=== PATIENT | female | born 1945 | race Two or more races ===

== ENCOUNTER 2020-12-16 07:18 | Outpatient (REF) | payer MEDICARE, SELFPAY | END 2020-12-16 07:19 | disposition home or self-care (01) | LOC: HO.LAB 07:18 | PROVIDERS: PCP Internal Medicine; Visit Provider Internal Medicine | DX: Z20.822 Contact with and (suspected) exposure to COVID-19 (principal) | CPT/HCPCS: 36415; C9803; U0003 ==

== ENCOUNTER → 2021-01-13 10:04 | Outpatient (BNVA) | payer MEDICARE, SELFPAY | PROVIDERS: PCP Internal Medicine; Visit Provider Nurse Practitioner | DX: Z76.89 Persons encountering health services in other specified circumstances (principal) | CPT/HCPCS: Q3014 ==

== ENCOUNTER 2021-05-30 09:26 | Outpatient (REF) | payer MEDICARE, SELFPAY ==
--- NOTE | ~2021-05-30 | MM_ITS ---
EXAMINATION: BONE DENSITOMETRY CLINICAL INDICATION: Osteoporosis. COMPARISON: None (current study represents initial baseline exam). TECHNIQUE: Using a Knowable DXA System (software version: 13.1) manufactured by [email or web address], dual-energy x-ray absorptiometry was performed of the lumbar spine and left hip. The images are of good technical quality. Summary results are attached. FINDINGS: AP SPINE L1-L4: BMD 1.366 g/cm2, Z-score 3.0, T-score 1.6, normal. LEFT FEMUR, NECK: BMD 0.922 g/cm2, Z-score 1.0, T-score -0.8, normal. LEFT FEMUR, TOTAL: BMD 1.085 g/cm2, Z-score 2.2, T-score 0.6, normal. IDENTIFIED RISK FACTORS: Early menopause, secondary osteoporosis, hysterectomy, bilateral oophorectomy. HISTORY OF FRACTURE: None listed. MEDICATIONS: Calcium supplements or multivitamin, vitamin D. MM/XR DEXA axial skeleton IMPRESSION: 1. DIAGNOSIS: Normal bone density based on the lowest T-score value of -0.8 in the femoral neck applying World Health Organization criteria. 2. 10-YEAR FRACTURE RISK PREDICTION, FRAX: Major osteoporotic fracture (clinical spine, forearm, hip or shoulder) 5.2%. Hip fracture 0.7%. 3. Treatment Recommendations: NOF guidelines recommend consideration for treatment in postmenopausal women and men age 50 and older presenting with the following: -A hip or vertebral (clinical or morphometric) fracture. -T-score less than or equal to -2.5 at the femoral neck or spine after appropriate evaluation to exclude secondary causes. -Low bone mass at the hip or spine and a 10-year fracture probability by FRAX of greater than or equal to 3% for hip fracture or greater than or equal to 20% for major osteoporotic fracture based on the [place] adapted WHO algorithm. 4. Other Recommendations: All treatment decisions require clinical judgment and consideration of individual patient factors, including patient preferences, comorbidities, previous drug use, risk factors not captured in the FRAX model (e.g. frailty, falls, vitamin D deficiency, increased bone turnover, interval significant decline in bone density) and possible under or overestimation of fracture risk by FRAX. FUTURE SCAN RECOMMENDATION: People with diagnosed cases of osteoporosis or at high risk for fracture should have regular bone mineral density tests. For patients eligible for Medicare, routine testing is allowed once every 2 years. The testing frequency can be increased to one year for patients who have rapidly progressing disease, those who are receiving or discontinuing medical therapy to restore bone mass, or have additional risk factors.
== END 2021-05-30 09:27 | disposition home or self-care (01) ==
LOC: HO.MAMMO 09:26
PROVIDERS: PCP Internal Medicine; Visit Provider Internal Medicine
DX: Z13.820 Encounter for screening for osteoporosis (principal); Z78.0 Asymptomatic menopausal state; Z79.899 Other long term (current) drug therapy; Z98.890 Other specified postprocedural states; Z90.722 Acquired absence of ovaries, bilateral
CPT/HCPCS: 77080

== ENCOUNTER 2021-08-29 07:54 | Outpatient (REF) | payer MEDICARE, SELFPAY ==
--- NOTE | ~2021-08-29 | XR_ITS ---
EXAMINATION: BILATERAL KNEE STANDING AND RIGHT KNEE 2 VIEWS. CLINICAL INFORMATION: Pain right knee: COMPARISON: None TECHNIQUE: AP bilateral knee standing and right knee 2 views. FINDINGS: AP bilateral knee: There is loss of medial and lateral compartment joint space both knees with moderate periarticular spurring lateral compartment both knees. No bony erosive changes seen. There are no loose bodies. No joint effusion. Right knee: There is loss of patellofemoral compartment joint space with right lateral patellar enthesophyte. Mild suprapatellar joint effusion is seen. No loose bodies noted. There is no acute fracture or dislocation. XR/XR knee RT 2V IMPRESSION: Moderate degenerative changes and lateral compartment both knees with moderate periarticular osteophytes. Mild loss of patellofemoral compartment right knee with periarticular spurring right knee. No acute fracture or dislocation seen.
--- NOTE | ~2021-08-29 | XR_ITS ---
EXAMINATION: BILATERAL KNEE STANDING AND RIGHT KNEE 2 VIEWS. CLINICAL INFORMATION: Pain right knee: COMPARISON: None TECHNIQUE: AP bilateral knee standing and right knee 2 views. FINDINGS: AP bilateral knee: There is loss of medial and lateral compartment joint space both knees with moderate periarticular spurring lateral compartment both knees. No bony erosive changes seen. There are no loose bodies. No joint effusion. Right knee: There is loss of patellofemoral compartment joint space with right lateral patellar enthesophyte. Mild suprapatellar joint effusion is seen. No loose bodies noted. There is no acute fracture or dislocation. XR/XR knee standing BI IMPRESSION: Moderate degenerative changes and lateral compartment both knees with moderate periarticular osteophytes. Mild loss of patellofemoral compartment right knee with periarticular spurring right knee. No acute fracture or dislocation seen.
== END 2021-08-29 07:55 | disposition home or self-care (01) ==
LOC: HO.HOSX 07:54
PROVIDERS: Visit Provider Physician Assistant
DX: M17.11 Unilateral primary osteoarthritis, right knee (principal); R13.10 Dysphagia, unspecified; K21.9 Gastro-esophageal reflux disease without esophagitis
CPT/HCPCS: 73560; 73565; 99212

== ENCOUNTER → 2021-09-18 10:45 | Outpatient (BNVA) | payer MEDICARE, SELFPAY | PROVIDERS: PCP Internal Medicine; Visit Provider Orthopaedic Surgery | DX: Z01.812 Encounter for preprocedural laboratory examination (principal); M17.11 Unilateral primary osteoarthritis, right knee; M21.061 Valgus deformity, not elsewhere classified, right knee; Z88.0 Allergy status to penicillin | CPT/HCPCS: 99212 ==

== ENCOUNTER → 2021-12-11 11:10 | Outpatient (BNVA) | payer MEDICARE, SELFPAY | PROVIDERS: PCP Internal Medicine; Visit Provider Orthopaedic Surgery ==

== ENCOUNTER → 2021-12-25 09:04 | Outpatient (BNVA) | payer MEDICARE, SELFPAY | PROVIDERS: PCP Internal Medicine; Visit Provider Physician Assistant | DX: Z01.818 Encounter for other preprocedural examination (principal); M17.11 Unilateral primary osteoarthritis, right knee | CPT/HCPCS: 99212 ==

== ENCOUNTER 2021-12-27 10:00 | Outpatient (RCR) | payer MEDICARE, SELFPAY | END 2021-12-27 10:52 | disposition home or self-care (01) | LOC: HO.PTCHIC 10:00 | PROVIDERS: PCP Internal Medicine; Visit Provider Registered Nurse | DX: M54.50 Low back pain, unspecified (principal) | CPT/HCPCS: 97110; 97162 ==

== ENCOUNTER 2022-01-02 10:18 | Inpatient (IN) | payer MEDICARE, SELFPAY ==
[2021-12-18 12:09] VITALS: BP 150/65; PULSE 78; RESP 16; O2SAT 96; BMI 33.5
--- NOTE | 2021-12-18 12:25 | HO.ANESPROP2 ---
Documented by User: Tamica Unger NP 12/18/21 12:38 HPI - Anesthesia Eval Consult details Narrative: 76yo F for Right Knee Replacement Total PCP cleared Cardiology cleared, no further work up PMFSH Active Problems Active Problems: All Active Problems (Updated 12/18/21 @ 12:03 by Elsy Frost RN) Dysphagia (Acute) GERD (gastroesophageal reflux disease) (Acute) Osteoarthritis of right knee (Acute) Valgus deformity, not elsewhere classified, right knee (Acute) Past Medical History Medical History Asthma CAD (coronary artery disease) Chronic stable angina CKD (chronic kidney disease), stage III Diabetes mellitus Dysphagia HTN (hypertension) Hyperlipidemia Numbness of left foot Osteoarthritis of both knees Osteopenia determined by x-ray PVD (peripheral vascular disease) Family History Family History Father Heart problem Brother Heart problem Sister Heart problem Family history of problems with anesthesia: No Surgical History Surgical History H/O tubal ligation Hx of colonoscopy Hx of hysterectomy S/P right coronary artery (RCA) stent placement History of Problems with Anesthesia: No Social History Social History Are you a primary healthcare project manager to a significant other at home: No Do you presently have visiting nurse or other home services: Yes (SPEEDER WORKER- Daughter) Alcohol intake: current Alcohol intake frequency: does not drink Patient Tobacco Use Status: Never used Tobacco Second Hand Smoke Exposure: No Use of substances other than those prescribed or required for medical reasons: No Are you DNR?: No Advance Directives: No Advance Directives Information Provided: Yes (Daughter will be HCP - Info given at [facility]) Advance Directives on File: No Recently lost weight without trying: Yes How much weight loss: 14-23 pounds Eating poorly because of decreased appetite: No Nutrition screen score: 4 Nutrition Risks: Difficulty swallowing Patient : No Current occupational status: disabled Current occupation: rt handed Narrative Narrative: NO recent illness No CP/SOB with ADLS/housework. Some FLEMING with stairs. Meds Allergies Allergy/AdvReac Type Severity Reaction Status Date / Time amlodipine Allergy Abdominal Verified 12/25/21 09:12 Pain Penicillins Allergy swelling, Verified 12/25/21 09:12 Rash tetanus and diphtheria Allergy Unknown Verified 12/25/21 09:12 toxoids Home Medications Medication Instructions Recorded Confirmed Last Taken Type aspirin 81 mg tablet,delayed 81 mg PO DAILY 01/13/21 12/15/21 Unknown History release blood sugar diagnostic #10 ea 01/13/21 12/11/21 Unknown History calcium carbonate 500 mg-vitamin 1 tab PO DAILY 01/13/21 12/15/21 Unknown History D3 10 mcg (400 unit) tablet chlorthalidone 25 mg tablet 12.5 mg PO DAILY 01/13/21 12/15/21 Unknown History cholecalciferol (vitamin D3) 25 25 mcg PO DAILY 01/13/21 12/15/21 Unknown History mcg (1,000 unit) capsule dicyclomine 10 mg capsule 10 mg PO TID 01/13/21 12/15/21 Unknown History doxazosin 4 mg tablet 4 mg PO DAILY 01/13/21 12/15/21 01/02/22 History evolocumab 140 mg/mL subcutaneous 140 mg SUBCUT Q2W 01/13/21 01/02/22 Unknown History pen injector metformin 500 mg tablet 500 mg PO BIDWMEAL 01/13/21 12/15/21 Unknown History montelukast 10 mg tablet 10 mg PO DAILY 01/13/21 12/15/21 Unknown History multivitamin 1 tab PO DAILY 01/13/21 12/15/21 Unknown History rosuvastatin 40 mg tablet 40 mg PO DAILY 01/13/21 12/15/21 Unknown History spironolactone 25 mg tablet 25 mg PO DAILY 01/13/21 12/15/21 01/02/22 History valsartan 160 mg tablet 160 mg PO DAILY 01/13/21 12/15/21 01/02/22 History capsaicin 0.025 % topical cream 1 applic TOPICAL BID 12/15/21 12/15/21 Unknown History nitroglycerin 0.4 mg sublingual 0.4 mg SUBLINGUAL Q5M PRN 12/15/21 12/15/21 Unknown History tablet (Nitrostat) loratadine 10 mg tablet 1 tab PO DAILY PRN 01/02/22 01/02/22 Unknown History sennosides 8.6 mg-docusate sodium 1 tab PO TID PRN 01/02/22 01/02/22 Unknown History 50 mg tablet (Senna Plus) Exam Exam Date and Time: December 18, 2021 1225 Height,Weight and Vital Signs: Height 4 ft 9.5 in Weight 71.668 kg Last Vital Signs Pulse 78 12/18/21 12:09 Resp 16 12/18/21 12:09 BP 150/65 H 12/18/21 12:09 Pulse Ox 96 12/18/21 12:09 Pertinent Lab Results Pertinent Lab Results: CBC, BMP, A1C done at outside facility - all WNL (Hgb slightly decreased @ 11.3) Narrative Narrative: EKG 11/2021 NSR @ 61 Airway Mallampati Class: II TM Dist: >3cm Neck ROM: Full Loose/Missing/Broken Teeth: No Heart: RRR Lungs: CTAB Assessment and Plan Assessment Anesthesia Assessment: Anesthesia Plan Discussed (Spinal and nerve block. consulting sales manager in person.) and PAT Visit Final Anesthetic Review Family History of Problems with Anesthesia: No History of Problems with Anesthesia: No Documented by User: Fernando Domínguez MD 01/02/22 13:51 PMFSH Past Medical History Medical History Asthma CAD (coronary artery disease) Chronic stable angina CKD (chronic kidney disease), stage III Diabetes mellitus Dysphagia HTN (hypertension) Hyperlipidemia Numbness of left foot Osteoarthritis of both knees Osteopenia determined by x-ray PVD (peripheral vascular disease) Family History Family History Father Heart problem Brother Heart problem Sister Heart problem Surgical History Surgical History H/O tubal ligation Hx of colonoscopy Hx of hysterectomy S/P right coronary artery (RCA) stent placement Social History Social History (Reviewed 12/25/21 @ 09:12 by CONCHA Rivas Are you a primary healthcare project manager to a significant other at home: No Do you presently have visiting nurse or other home services: Yes (SPEEDER WORKER- Daughter) Alcohol intake: current Alcohol intake frequency: does not drink Patient Tobacco Use Status: Never used Tobacco Second Hand Smoke Exposure: No Use of substances other than those prescribed or required for medical reasons: No Are you DNR?: No Advance Directives: No Advance Directives Information Provided: Yes (Daughter will be HCP - Info given at [facility]) Advance Directives on File: No Recently lost weight without trying: Yes How much weight loss: 14-23 pounds Eating poorly because of decreased appetite: No Nutrition screen score: 4 Nutrition Risks: Difficulty swallowing Patient : No Current occupational status: disabled Current occupation: rt handed Meds Allergies Allergy/AdvReac Type Severity Reaction Status Date / Time amlodipine Allergy Abdominal Verified 12/25/21 09:12 Pain Penicillins Allergy swelling, Verified 12/25/21 09:12 Rash tetanus and diphtheria Allergy Unknown Verified 12/25/21 09:12 toxoids Home Medications Medication Instructions Recorded Confirmed Last Taken Type aspirin 81 mg tablet,delayed 81 mg PO DAILY 01/13/21 12/15/21 Unknown History release blood sugar diagnostic #10 ea 01/13/21 12/11/21 Unknown History calcium carbonate 500 mg-vitamin 1 tab PO DAILY 01/13/21 12/15/21 Unknown History D3 10 mcg (400 unit) tablet chlorthalidone 25 mg tablet 12.5 mg PO DAILY 01/13/21 12/15/21 Unknown History cholecalciferol (vitamin D3) 25 25 mcg PO DAILY 01/13/21 12/15/21 Unknown History mcg (1,000 unit) capsule dicyclomine 10 mg capsule 10 mg PO TID 01/13/21 12/15/21 Unknown History doxazosin 4 mg tablet 4 mg PO DAILY 01/13/21 12/15/21 01/02/22 History evolocumab 140 mg/mL subcutaneous 140 mg SUBCUT Q2W 01/13/21 01/02/22 Unknown History pen injector metformin 500 mg tablet 500 mg PO BIDWMEAL 01/13/21 12/15/21 Unknown History montelukast 10 mg tablet 10 mg PO DAILY 01/13/21 12/15/21 Unknown History multivitamin 1 tab PO DAILY 01/13/21 12/15/21 Unknown History rosuvastatin 40 mg tablet 40 mg PO DAILY 01/13/21 12/15/21 Unknown History spironolactone 25 mg tablet 25 mg PO DAILY 01/13/21 12/15/21 01/02/22 History valsartan 160 mg tablet 160 mg PO DAILY 01/13/21 12/15/21 01/02/22 History capsaicin 0.025 % topical cream 1 applic TOPICAL BID 12/15/21 12/15/21 Unknown History nitroglycerin 0.4 mg sublingual 0.4 mg SUBLINGUAL Q5M PRN 12/15/21 12/15/21 Unknown History tablet (Nitrostat) loratadine 10 mg tablet 1 tab PO DAILY PRN 01/02/22 01/02/22 Unknown History sennosides 8.6 mg-docusate sodium 1 tab PO TID PRN 01/02/22 01/02/22 Unknown History 50 mg tablet (Senna Plus) Assessment and Plan Final Anesthetic Review NPO: Yes ASA Class: III Final Preanesthetic Review: No Changes in Pt Med Stat, Meds/Allgs Chart Reviewed, Consent Obtained/Reviewed and Anes Risks/Benef Reviewed Patient Risk: Intermediate Procedure Risk: Intermediate Anesthetic Plan Anesthetic Plan: MAC:, Spinal, Regional Block and Agree w/ Assess. and Plan Disposition: Standard PACU
[2021-12-18 15:32] LABS: MRSA Nasal PCR NEGATIVE (Negative); SA Nasal PCR NEGATIVE (Negative)
[2022-01-02] VITALS (11 sets, daily range): BP systolic 114–189; BP diastolic 44–78; PULSE 55–86; RESP 16–20; TEMP 36.1–37.1; O2SAT 95–99
--- NOTE | ~2022-01-02 | XR_ITS ---
EXAMINATION: XR KNEE, RIGHT CLINICAL INFORMATION: Right knee replacement. COMPARISON: Previous x-ray August 2021 TECHNIQUE: Two views of the right knee. FINDINGS: There is a hinged right knee replacement in satisfactory position. No fracture or dislocation is seen. There are postoperative changes to the soft tissues. XR/XR knee RT 2V IMPRESSION: Satisfactory appearance of right knee replacement.
[2022-01-02 11:31] LABS: Glucose, Whole Blood 103 mg/dL (60-115)
[2022-01-02 11:43] LABS: COVID-19 Test Negative (Negative)
[2022-01-02] MEDS: Lactated Ringers 1,000 ML 100 ML IVCONT (12:02)
[2022-01-02] MEDS: vancomycin HCL 1,000 MG in 0.9 % Sodium Chloride 250 ML 270 MG IV (12:03)
--- NOTE | 2022-01-02 12:38 | PHA.MEDREC ---
Pharmacy Consult ? Medication Reconciliation RN completed the medication reconciliation, pharmacy reviewed.
--- NOTE | 2022-01-02 13:10 | MHC.SHP ---
Pre-Procedural Eval Section A Date of Service: 01/02/22 The patient is an INPATIENT: No Changes since office visit: Yes Patient answered all questions; No Cold of Flu in the past 2 weeks, No New Medical Problems and No Changes in Medication The History & Physical has been completed within 30 days and I have reviewed it.: Yes Section B Chief Complaint: RT TKA Allergies: Allergies Allergy/AdvReac Type Severity Reaction Status Date / Time amlodipine Allergy Abdominal Verified 12/25/21 09:12 Pain Penicillins Allergy swelling, Verified 12/25/21 09:12 Rash tetanus and diphtheria Allergy Unknown Verified 12/25/21 09:12 toxoids Plan I have reviewed the history and physical and performed a pertinent physical examination on my patient. No changes have occurred unless specified.
--- NOTE | 2022-01-02 14:48 | P.BOP_ITS ---
Brief Operative Note Date of Service: 01/02/22 Pre-op diagnosis: right knee OA Post-op diagnosis: same Procedure: Right TKA Implants: Sonal Triathalon cemented posterior stabilized 12/28/18TS and 29a patella Surgeon: Tristan Collins MD Anesthesia: regional and spinal Was an Alternative Energy Technician used for this Procedure?: Yes Alternative Energy Technician: Jenise Mackenzie Estimated blood loss (mL): 200 IV fluids (mL): 1,000 Pathology: other Condition: stable Disposition: PACU
--- NOTE | 2022-01-02 14:51 | W.PM.OPN ---
Operative Note Operative Note Date of Service: 01/02/22 Narrative: Date of Service: 01/02/22 Pre-op diagnosis: right knee OA Post-op diagnosis: same Procedure: Right TKA Implants: [place]we Triathalon? cemented posterior stabilized 12/28/18TS and 29a patella Surgeon: Tristan Collins MD Anesthesia: regional and spinal Was an Corrosion Control Specialist used for this Procedure?: Yes Corrosion Control Specialist: Jenise Mackenzie Estimated blood loss (mL): 200 IV fluids (mL): 1,000 Pathology: other Condition: stable Disposition: PACU Procedure in detail: The patient was brought to the operating room and prepped and draped in standard sterile fashion. A time-out was called to identify proper site proper procedure proper surgeon and IV antibiotics were administered. 1 g of IV tranexamic acid was administered. I began by making a midline incision to the retinaculum and performed a medial parapatellar arthrotomy. The patella was translated laterally and the knee was flexed up.The lateral compartment was eburnated. I performed a small medial peel and resected the infrapatellar fat pad. [place]'s line was then used to drill my intramedullary femoral guide and my distal femur cut of 10 mm was made in 5 degrees of valgus while protecting the soft tissues. I then measured a # 2 femur and placed my cutting guide and made my anterior posterior and chamfer cuts protecting the soft tissues at all times. I then made my box but removing the PCL. Once I was satisfied with my cuts I turned my attention to the tibia. I removed the meniscus medially and laterally and , using an external cutting guide, in line with the tibial crest and the third ray, I made my distal tibial cut in 0 deg slope. An extension block was used to confirm appropriate amount of bony resection. I then sized a #3 tibia and once I was satisfied that there was complete tibial coverage I placed my trial and with the trial femur in place took the knee through range of motion. I was satisfied with the extension and flexion as well as the stability at 0, 30 and 90 degrees using a 19 mm insert. I then turned my attention to the patella where I removed 1 cm from the undersurface of the patella and then trialed a 29a patellar button. Again the knee was taken through range of motion I was satisfied with the tracking. I then irrigated and cemented the femur and tibia while applying axial compression and cemented the patella. Once the cement was dry and all excess cement was removed I trialed a 16 and then a 19 insert and was most satisfied with the 19. The final insert was placed and a 3 minutes iodine soak with local TXA was performed. The knee was then closed with a running Quill suture, a 3 0 Vicryl and ruel on the skin. Patient was then placed in sterile dressing and brought to recovery room in stable condition there were no known complications.
[2022-01-02] MEDS: 0.9 % Sodium Chloride 1,000 ML 80 ML IVCONT (16:28)
[2022-01-02] MEDS: HYDROmorphone HCl 1 MG/ML SYRINGE 0.25 MG IVPUSH ×2 (17:33→21:45)
[2022-01-02] MEDS: oxyCODONE HCl Immed Release 5 MG TABLET 10 MG PO ×2 (17:33→23:26)
[2022-01-02] MEDS: Acetaminophen 325 MG TABLET 650 MG PO (17:39)
--- NOTE | 2022-01-02 17:57 | HO.PM.IMCN ---
History of Present Illness Data of Consult Service Date: 01/02/22 <Yeni Walker NP - Last Filed: 01/02/22 18:06> Requesting physician: Tristan Collins <Yeni Walker NP - Last Filed: 01/02/22 18:06> Primary Care Provider: Andriy Hartman MD <Yeni Walker NP - Last Filed: 01/02/22 18:06> HPI 76 year old women admitted by orthopedic surgery and is s/p right knee arthroplasty. Her vital signs are stable. Se has minimal pain at this time. She denied nausea or vomiting and is resting comfortably in bed. <Yeni Walker NP - Last Filed: 01/02/22 18:06> Review of Systems Review of Systems: Denies any recent fever chills or decrease in appetite respiratory denies any shortness of breath coverage production cardiovascular denies chest pain gastrointestinal denies any dysphagia abdominal pain nausea vomiting or diarrhea genitourinary denies any dysuria frequency or hematuria musculoskeletal right TKA, minimal pain neuropsych denies any weakness or seizures all other systems reviewed are negative <Yeni Walker NP - Last Filed: 01/02/22 18:06> [facility] Medical History: Medical History Asthma CAD (coronary artery disease) Chronic stable angina CKD (chronic kidney disease), stage III Diabetes mellitus Dysphagia HTN (hypertension) Hyperlipidemia Numbness of left foot Osteoarthritis of both knees Osteopenia determined by x-ray PVD (peripheral vascular disease) <Yeni Walker NP - Last Filed: 01/02/22 18:06> Family History: Family History Father Heart problem Brother Heart problem Sister Heart problem <Yeni Walker NP - Last Filed: 01/02/22 18:06> Surgical History: Surgical History H/O tubal ligation Hx of colonoscopy Hx of hysterectomy S/P right coronary artery (RCA) stent placement <Yeni Walker NP - Last Filed: 01/02/22 18:06> Social History: Social History (Updated 01/02/22 @ 18:00 by Yeni Walker NP) Are you a primary care provider to a significant other at home: No Do you presently have visiting nurse or other home services: Yes ([employer]- Daughter) Alcohol intake: current Alcohol intake frequency: does not drink Patient Tobacco Use Status: Never used Tobacco Second Hand Smoke Exposure: No service: No Current occupational status: disabled Current occupation: rt handed <Yeni Walker NP - Last Filed: 01/02/22 18:06> Meds Allergies/Adverse reactions: Allergies Allergy/AdvReac Type Severity Reaction Status Date / Time amlodipine Allergy Abdominal Verified 12/25/21 09:12 Pain Penicillins Allergy swelling, Verified 12/25/21 09:12 Rash tetanus and diphtheria Allergy Unknown Verified 12/25/21 09:12 toxoids <Yeni Walker NP - Last Filed: 01/02/22 18:06> Active Medications: Current Medications Acetaminophen (Acetaminophen 325 Mg Tablet) 650 mg PO Q6H PRN PRN Reason: Pain, Mild (Pain Scale 1-3) Last Admin: 01/02/22 17:39 Dose: 650 mg Documented by: Celecoxib (Celecoxib 200 Mg Capsule) 200 mg PO BID [facility] Docusate Sodium (Docusate Sodium 100 Mg Capsule) 100 mg PO BID [facility] Hydromorphone HCl (Hydromorphone Hcl 1 Mg/Ml Syringe) 0.25 mg IVPUSH Q4H PRN; Protocol PRN Reason: Pain, Severe (Pain Scale 7-10) Last Admin: 01/02/22 17:33 Dose: 0.25 mg Documented by: Sodium Chloride (Ns) 1,000 mls @ 80 mls/hr IVCONT .[id number] REPLACED BY [facility] Last Admin: 01/02/22 16:28 Dose: 80 mls/hr Documented by: Cefazolin Sodium/Dextrose (Ancef) 2 gm in 50 mls @ 100 mls/hr IV POSTOP REPLACED BY [facility] Ondansetron HCl (Ondansetron Hcl 4 Mg/2 Ml Vial) 4 mg IVPUSH Q8H PRN PRN Reason: Nausea and Vomiting Oxycodone HCl (Oxycodone Hcl Immed Release 5 Mg Tablet) 10 mg PO Q4H PRN PRN Reason: Pain, Moderate (Pain Scale 4-6 Last Admin: 01/02/22 17:33 Dose: 10 mg Documented by: Oxycodone HCl (Oxycodone Hcl Er 10 Mg Tab.Er.12h) 10 mg PO BID [facility] Sodium Chloride (0.9 % Sodium Chloride Flush 3 Ml Syringe) 3 ml IVFLUSH QSHIFT CANDIDA <Yeni Walker NP - Last Filed: 01/02/22 18:06> Home medications: Home Medications Medication Instructions Recorded Confirmed Last Taken Type aspirin 81 mg tablet,delayed 81 mg PO DAILY 01/13/21 12/15/21 Unknown History release blood sugar diagnostic #10 ea 01/13/21 12/11/21 Unknown History calcium carbonate 500 mg-vitamin 1 tab PO DAILY 01/13/21 12/15/21 Unknown History D3 10 mcg (400 unit) tablet chlorthalidone 25 mg tablet 12.5 mg PO DAILY 01/13/21 12/15/21 Unknown History cholecalciferol (vitamin D3) 25 25 mcg PO DAILY 01/13/21 12/15/21 Unknown History mcg (1,000 unit) capsule dicyclomine 10 mg capsule 10 mg PO TID 01/13/21 12/15/21 Unknown History doxazosin 4 mg tablet 4 mg PO DAILY 01/13/21 12/15/21 01/02/22 History evolocumab 140 mg/mL subcutaneous 140 mg SUBCUT Q2W 01/13/21 01/02/22 Unknown History pen injector metformin 500 mg tablet 500 mg PO BIDWMEAL 01/13/21 12/15/21 Unknown History montelukast 10 mg tablet 10 mg PO DAILY 01/13/21 12/15/21 Unknown History multivitamin 1 tab PO DAILY 01/13/21 12/15/21 Unknown History rosuvastatin 40 mg tablet 40 mg PO DAILY 01/13/21 12/15/21 Unknown History spironolactone 25 mg tablet 25 mg PO DAILY 01/13/21 12/15/21 01/02/22 History valsartan 160 mg tablet 160 mg PO DAILY 01/13/21 12/15/21 01/02/22 History capsaicin 0.025 % topical cream 1 applic TOPICAL BID 12/15/21 12/15/21 Unknown History nitroglycerin 0.4 mg sublingual 0.4 mg SUBLINGUAL Q5M PRN 12/15/21 12/15/21 Unknown History tablet (Nitrostat) loratadine 10 mg tablet 1 tab PO DAILY PRN 01/02/22 01/02/22 Unknown History sennosides 8.6 mg-docusate sodium 1 tab PO TID PRN 01/02/22 01/02/22 Unknown History 50 mg tablet (Senna Plus) <Yeni Walker NP - Last Filed: 01/02/22 18:06> Physical Exam Vital Signs and Narrative: Vital Signs: Last Vital Signs Temp 98.8 F 01/02/22 16:34 Pulse 63 01/02/22 16:34 Resp 16 01/02/22 16:34 BP 167/71 H 01/02/22 16:34 Pulse Ox 98 01/02/22 16:34 BMI result Body Mass Index 33.5 <Yeni Walker NP - Last Filed: 01/02/22 18:06> Appearing in no acute distress head is normocephalic atraumatic eyes pupils are PERRLA sclera is anicteric mouth throat mucous membranes are intact and moist neck is supple no lymphadenopathy, no JVD noted lung sounds are clear to auscultation heart regular rate rhythm, clear S1, S2 positive bowel sounds, abdomen is soft, nontender neuro patient is alert x3, no focal deficits Right knee surgical dressing, incision not visualized <Yeni Walker NP - Last Filed: 01/02/22 18:06> Results Labs CBC and Chem 7: : 01/03/22 05:37 01/03/22 05:37 <Yeni Walker NP - Last Filed: 01/02/22 18:06> Labs: Laboratory Results - last 24 hr 01/02/22 01/02/22 11:21 11:28 POC Glucose 103 COVID-19 (NEY) Negative COVID-19 Clin Com See Note <Yeni Walker NP - Last Filed: 01/02/22 18:06> Imaging Radiologist's Impressions: Impressions Knee X-Ray 01/02/22 15:45 IMPRESSION: Satisfactory appearance of right knee replacement. <Yeni Walker NP - Last Filed: 01/02/22 18:06> Assessment and Plan (1) Diabetes mellitus: Status: Acute <Yeni Walker NP - Last Filed: 01/02/22 18:06> Plan 76 year old women admitted by orthopedic surgery and is s/p right TKA Right TKA management as per surgical team pain management Diabetes sliding scale, ADA diet would suggest holding Metformin HTN. avoid post op hypotension continue home medications DVT Prophylaxis as per surgical team Attending Dr. Cruz Medical consultation complete. Will sign off at this time. <Yeni Walker NP - Last Filed: 01/02/22 18:06> 76 year old women admitted by orthopedic surgery and is s/p right TKA Right TKA management as per surgical team pain management Diabetes sliding scale, ADA diet would suggest holding Metformin HTN. avoid post op hypotension continue home medications DVT Prophylaxis as per surgical team Attending Dr. Cruz Medical consultation complete. Will sign off at this time. addendum patient with history of hypertension on multiple medications including chlorthalidon, spironolactone and valsartan, recommend to follow blood pressure closely and resume valsartan, DC IV fluids. <Tutu Cruz MD - Last Filed: 01/03/22 16:46>
--- NOTE | 2022-01-02 18:38 | PC.NURSE ---
Pt alert nad oriented x4 but occitan speaking only with minimal Guinean understanding. Pt admitted to 368 S/P RTKA. Pt arrived via stretcher from PACU. Pt has a dressing to the right knee secured by Justyn war and has bilateral compression boots. LS clear. Skin is intact except for surgical site. Pt C/O of 6/10 pain to the Right knee after activity. PRN Dilaudid, Oxy and tylenol given with good effect.
[2022-01-02] MEDS: 0.9 % Sodium Chloride Flush 3 ML SYRINGE IVFLUSH ×2 (18:48→20:45)
[2022-01-02 20:28] LABS: Glucose, Whole Blood 176 mg/dL (60-115)
[2022-01-02] MEDS: Docusate Sodium 100 MG CAPSULE PO (20:44)
[2022-01-02] MEDS: oxyCODONE HCl ER 10 MG TAB.ER.12H PO (20:44)
[2022-01-02] MEDS: Dicyclomine HCl 10 MG CAPSULE PO (20:44)
[2022-01-02] MEDS: Celecoxib 200 MG CAPSULE PO (20:44)
[2022-01-02] MEDS: Capsaicin 0.025% Cream 60 GM TUBE 1 APPL TOPICAL (21:44)
[2022-01-03] VITALS (8 sets, daily range): BP systolic 111–183; BP diastolic 54–80; PULSE 60–78; RESP 18–20; TEMP 36.3–37.1; O2SAT 93–95
[2022-01-03] MEDS: Acetaminophen 325 MG TABLET 650 MG PO ×2 (01:10→08:05)
[2022-01-03] MEDS: oxyCODONE HCl Immed Release 5 MG TABLET 10 MG PO ×2 (05:54→13:50)
[2022-01-03] MEDS: 0.9 % Sodium Chloride 1,000 ML 80 ML IVCONT (05:54)
[2022-01-03 05:58] LABS: MANUAL DIFF FLAG NO
[2022-01-03 06:03] LABS: Basophils Percent Auto 0.1 % (0-2); Hematocrit 30.6 % (37.0-47.0); Hemoglobin 9.6 g/dl (12.0-16.0); Imm Gran Abs Auto 0.06 X10*3/uL (0.00-0.03); Imm Gran Pct Auto 0.5 % (0.0-0.4); Lymphocytes Absolute Auto 1.3 X10*3/uL (1.2-4.9); Lymphocytes Percent Auto 10.3 % (20-40); Mean Corpuscular HGB Conc 31.4 g/dl (31.0-35.0); Mean Corpuscular Hemoglobin 27.4 pg (27.0-33.0); Mean Corpuscular Volume 87.4 fL (80.0-98.0); Mean Platelet Volume 9.4 fL (9.4-12.3); Monocytes Absolute Auto 0.7 X10*3/uL (0.1-1.2); Monocytes Percent Auto 5.4 % (2-11); Neutrophils Percent Auto 83.7 % (45-73); Platelet Count 294 X10*3/uL (160-400); Red Cell Distribution Width 13.1 % (11.0-16.0); White Blood Count 13.1 X10*3/uL (4.8-10.8)
[2022-01-03 06:27] LABS: Anion Gap 14 (12-20); Blood Urea Nitrogen 26 mg/dL (9-16); Calcium 9.3 mg/dL (8.4-10.2); Carbon Dioxide 26 mmol/L (22-29); Chloride 105 mmol/L (96-108); Creatinine Clr Calc Pharmacy 42.8; Estimated Glomerular Filt Rate > 60; Glucose Fasting 127 mg/dL (60-99); Potassium 4.5 mmol/L (3.3-5.1); Sodium 140 mmol/L (135-145)
--- NOTE | 2022-01-03 06:50 | HO.POSTANES ---
Post Anesthesia Evaluation Post Anesthesia Evaluation Vital Signs: Vital Signs Temp Pulse Resp BP Pulse Ox 01/03/22 03:42 97.8 F 60 18 155/69 H 95 01/03/22 00:15 160/80 H 01/03/22 00:00 97.5 F 66 18 183/79 H 93 01/02/22 19:14 97.8 F 64 18 143/74 H 95 Anesthesia: Spinal and Nerve Block Mental Status: Awake Pain Control: Satisfactory Nausea/Vomiting: None Hydration: Adequate Anesthesia-Related Issues: No Anes. Related Issues
[2022-01-03 07:37] LABS: Glucose, Whole Blood 125 mg/dL (60-115)
[2022-01-03] MEDS: oxyCODONE HCl ER 10 MG TAB.ER.12H PO ×2 (08:05→20:12)
[2022-01-03] MEDS: Montelukast Sodium 10 MG TABLET PO (08:05)
[2022-01-03] MEDS: Dicyclomine HCl 10 MG CAPSULE PO ×3 (08:05→20:12)
[2022-01-03] MEDS: Celecoxib 200 MG CAPSULE PO ×2 (08:05→20:12)
[2022-01-03] MEDS: Atorvastatin Calcium 80 MG TABLET PO (08:05)
[2022-01-03] MEDS: Docusate Sodium 100 MG CAPSULE PO ×2 (08:05→20:12)
--- NOTE | 2022-01-03 09:13 | PM.PNORT ---
Subjective Subjective Date of Service: 01/03/22 Interval history: POD 1 s/p RT TKA no overnight events resting in bed, feeling great. no concerns denies cp, palpitations, sob Physical Exam Vital Signs: Vital Signs: Last Vital Signs Temp 97.4 F 01/03/22 07:49 Pulse 60 01/03/22 07:49 Resp 18 01/03/22 07:49 BP 154/70 H 01/03/22 07:49 Pulse Ox 95 01/03/22 07:49 BMI result Body Mass Index 33.5 Const: General: cooperative, healthy appearing and no acute distress Resp: Effort & Inspection: normal respiratory effort and able to speak in complete sentences Cardio: Rate: regular rate Peripheral pulses: Peripheral pulses 2+ throughout GI: Palpation (GI): Soft to palpation Skin: General skin exam: no rashes or lesions noted Extrem: Other: bandage intact. No erythema or joint effusion. Calf supple nontender. Neurovascularly intact. Procedures Date of Service Date of Service: 01/03/22 Progress Note: A&P Assessment and plan (1) Status post total knee replacement, right: Status: Acute Assessment and Plan: Continue pain mgmnt Begin Aspirin for dvt ppx begin PT for RT TKA Dispo planning-Pending PT eval, pain mgmnt Fall Risk Details Current Medications: Current Medications Acetaminophen (Acetaminophen 325 Mg Tablet) 650 mg PO Q6H PRN PRN Reason: Pain, Mild (Pain Scale 1-3) Last Admin: 01/03/22 08:05 Dose: 650 mg Documented by: Aspirin (Aspirin 325 Mg Tablet) 325 mg PO BID [facility] Atorvastatin Calcium (Atorvastatin Calcium 80 Mg Tablet) 80 mg PO DAILY [facility] Last Admin: 01/03/22 08:05 Dose: 80 mg Documented by: Capsaicin (Capsaicin 0.025% Cream 60 Gm Tube) 1 appl TOPICAL BID [facility]; Protocol Last Admin: 01/03/22 08:13 Dose: Not Given Documented by: Celecoxib (Celecoxib 200 Mg Capsule) 200 mg PO BID [facility] Last Admin: 01/03/22 08:05 Dose: 200 mg Documented by: Dextrose (Dextrose 50 % 25 Gm/50 Ml Syringe) 25 gm IVPUSH Q15M PRN; Protocol PRN Reason: per Hypoglycemia Standing Ord. Dicyclomine HCl (Dicyclomine Hcl 10 Mg Capsule) 10 mg PO TID [facility] Last Admin: 01/03/22 08:05 Dose: 10 mg Documented by: Docusate Sodium (Docusate Sodium 100 Mg Capsule) 100 mg PO BID [facility] Last Admin: 01/03/22 08:05 Dose: 100 mg Documented by: Glucose (Glucose Gel 15 Gm Gel..Gram.) 15 gm PO Q15M PRN; Protocol PRN Reason: per Hypoglycemia Standing Ord. Hydromorphone HCl (Hydromorphone Hcl 1 Mg/Ml Syringe) 0.25 mg IVPUSH Q4H PRN; Protocol PRN Reason: Pain, Severe (Pain Scale 7-10) Last Admin: 01/02/22 21:45 Dose: 0.25 mg Documented by: Sodium Chloride (Ns) 1,000 mls @ 80 mls/hr IVCONT .[id number] [facility] Last Admin: 01/03/22 05:54 Dose: 80 mls/hr Documented by: Cefazolin Sodium/Dextrose (Ancef) 2 gm in 50 mls @ 100 mls/hr IV ONCE@1800 [facility] Stop: 01/03/22 18:29 Insulin Human Lispro (Insulin Lispro 100 Unit/Ml 3 Ml Vial) 0 unit SUBCUT QIDACHS [facility]; Protocol Last Admin: 01/03/22 08:11 Dose: Not Given Documented by: Loratadine (Loratadine 10 Mg Tablet) 10 mg PO DAILY PRN PRN Reason: Allergy Symptoms Montelukast Sodium (Montelukast Sodium 10 Mg Tablet) 10 mg PO DAILY [facility] Last Admin: 01/03/22 08:05 Dose: 10 mg Documented by: Nitroglycerin (Nitroglycerin 0.4 Mg Tab.Subl) 0.4 mg SUBLINGUAL Q5M PRN PRN Reason: Chest Pain Ondansetron HCl (Ondansetron Hcl 4 Mg/2 Ml Vial) 4 mg IVPUSH Q8H PRN PRN Reason: Nausea and Vomiting Oxycodone HCl (Oxycodone Hcl Immed Release 5 Mg Tablet) 10 mg PO Q4H PRN PRN Reason: Pain, Moderate (Pain Scale 4-6 Last Admin: 01/03/22 05:54 Dose: 10 mg Documented by: Oxycodone HCl (Oxycodone Hcl Er 10 Mg Tab.Er.12h) 10 mg PO BID [facility] Last Admin: 01/03/22 08:05 Dose: 10 mg Documented by: Sodium Chloride (0.9 % Sodium Chloride Flush 3 Ml Syringe) 3 ml IVFLUSH QSHIFT [facility] Last Admin: 01/03/22 08:06 Dose: Not Given Documented by: Time Spent With Patient Time: Total time spent is greater than 50% in coordination of care (as documented) at patient's floor/unit and/or counseling patient: Time with patient: less than 15 minutes Quality Stroke Does the patient have a stroke diagnosis?: No VTE Prior VTE?: No VTE Risk Level:: Surgical - very high VTE Device Contraindication: N/A - Device Ordered VTE Drug Contraindication: N/A - Med Ordered
[2022-01-03] MEDS: HYDROmorphone HCl 1 MG/ML SYRINGE 0.25 MG IVPUSH (09:22)
[2022-01-03 11:08] LABS: Glucose, Whole Blood 139 mg/dL (60-115)
[2022-01-03] MEDS: Aspirin 325 MG TABLET PO ×2 (13:50→20:12)
--- NOTE | 2022-01-03 13:50 | MHC.CM.PN ---
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
--- NOTE | 2022-01-03 15:38 | MHC.CLN ---
NUTRITION UNABLE TO CONFIRM WEIGHT LOSS. GOOD INTAKE NOTED PER DOCUMENTATION.
[2022-01-03 16:22] LABS: Glucose, Whole Blood 143 mg/dL (60-115)
[2022-01-03] MEDS: ceFAZolin Sodium/Dextrose,Iso 2 GM/50 ML PIGGYBACK IV (17:25)
[2022-01-03] MEDS: Loratadine 10 MG TABLET PO (20:12)
[2022-01-03 20:24] LABS: Glucose, Whole Blood 139 mg/dL (60-115)
[2022-01-04 03:55] VITALS: BP 116/80; PULSE 80; RESP 18; TEMP 36.7; O2SAT 93
[2022-01-04 06:16] LABS: MANUAL DIFF FLAG NO
[2022-01-04 06:37] LABS: Basophils Percent Auto 0.3 % (0-2); Eosinophils Absolute Auto 0.4 X10*3/uL (0.0-0.4); Eosinophils Percent Auto 3.5 % (0-4); Hematocrit 28.3 % (37.0-47.0); Imm Gran Abs Auto 0.04 X10*3/uL (0.00-0.03); Imm Gran Pct Auto 0.4 % (0.0-0.4); Lymphocytes Absolute Auto 1.8 X10*3/uL (1.2-4.9); Lymphocytes Percent Auto 15.6 % (20-40); Mean Corpuscular HGB Conc 31.8 g/dl (31.0-35.0); Mean Corpuscular Volume 88.2 fL (80.0-98.0); Mean Platelet Volume 9.7 fL (9.4-12.3); Monocytes Absolute Auto 0.9 X10*3/uL (0.1-1.2); Monocytes Percent Auto 7.7 % (2-11); Neutrophils Absolute Auto 8.3 x10*3/uL (2.0-8.3); Neutrophils Percent Auto 72.5 % (45-73); Platelet Count 262 X10*3/uL (160-400); Red Blood Count 3.21 X10*6/uL (4.20-5.50); Red Cell Distribution Width 13.2 % (11.0-16.0); White Blood Count 11.4 X10*3/uL (4.8-10.8)
[2022-01-04 07:48] LABS: Glucose, Whole Blood 108 mg/dL (60-115)
[2022-01-04 07:53] VITALS: BP 124/59; PULSE 80; RESP 18; TEMP 37.1; O2SAT 94
[2022-01-04 07:56] LABS: Anion Gap 11 (12-20); Blood Urea Nitrogen 27 mg/dL (9-16); Carbon Dioxide 28 mmol/L (22-29); Chloride 105 mmol/L (96-108); Creatinine Clr Calc Pharmacy 39.7; Estimated Glomerular Filt Rate 56; Glucose Fasting 109 mg/dL (60-99); Potassium 4.8 mmol/L (3.3-5.1); Sodium 139 mmol/L (135-145)
[2022-01-04] MEDS: Atorvastatin Calcium 80 MG TABLET PO (08:46)
[2022-01-04] MEDS: Docusate Sodium 100 MG CAPSULE PO (08:46)
[2022-01-04] MEDS: Celecoxib 200 MG CAPSULE PO (08:47)
[2022-01-04] MEDS: 0.9 % Sodium Chloride Flush 3 ML SYRINGE IVFLUSH (08:47)
[2022-01-04] MEDS: Capsaicin 0.025% Cream 60 GM TUBE 1 APPL TOPICAL (08:47)
[2022-01-04] MEDS: Montelukast Sodium 10 MG TABLET PO (08:47)
[2022-01-04] MEDS: Dicyclomine HCl 10 MG CAPSULE PO ×2 (08:47→14:18)
[2022-01-04] MEDS: oxyCODONE HCl ER 10 MG TAB.ER.12H PO (08:47)
[2022-01-04] MEDS: Aspirin 325 MG TABLET PO (08:47)
[2022-01-04 09:15] VITALS: BP 124/59; PULSE 80; O2SAT 94
[2022-01-04] MEDS: Sennosides 8.6 MG TABLET 17.2 MG PO (09:25)
[2022-01-04 11:14] LABS: COVID-19 Test Negative (Negative); IDNOW Serial# 9DD0AD1C
[2022-01-04 11:43] LABS: Glucose, Whole Blood 101 mg/dL (60-115)
[2022-01-04 12:00] VITALS: BP 135/64; PULSE 64; RESP 18; TEMP 36.4; O2SAT 94
--- NOTE | 2022-01-04 12:15 | MHC.CM.PN ---
nurse case management director note electronic medical record reviewed as well as case discussed with staff nurse and physical therapist . alos patient and her daughter tha. reviewed str available and iniated additional ones at familys request, patients/family were disappointmed in the ones that did not have available and did not like the ones per medicare ratings that had bed availability , pt/daughter want patient to be discharged to home , tp patients home discharge plan home with the [facility] for home pt pconfirmed with miguel angel- her daughter will stay at her house, transportation family medicare updarte 01/03/22
--- NOTE | 2022-01-04 12:50 | MHC.CM.PN ---
nurse case management electronic medical reord reviewed along with case disucssed with staff nurse , orthopedic surghical quin , patient with interperter and daughter felipe pearl [phone] discharge plan to her home and her daughter will stay with her as she has taken fmla from work [facility] for home p.,t. to start tomorrow transportation - [facility] pcp pt/family to fol;low orthopedic surgical foolow up per d/c instructions
--- NOTE | 2022-01-04 13:45 | P.F2F_ITS ---
Service Date Service Date: 01/04/22 Encounter Date of encounter: 01/04/22 Reasons for Services Signs and symptoms assessed: rt knee swelling, pain, dif fwith ambulation Reason for physical therapy: home safety and mobility, therapeutic exercises, restore joint function, gait/transfer training, ADL training and energy conservation Reason for occupational therapy: home safety and mobility, therapeutic exercises, restore joint function, gait/transfer training, ADL training and energy conservation Overseeing Care: Tristan Collins Homebound: Leaving the home is medically contraindicated at this time without the asist of a device and/or another person due th the listed conditions above and below. Reason homebound: unsteady gait / fall risk, pain with ambulation, poor balance / fall risk and unable to drive Homebound supporting statement: Pt. is considered home bound due to recent surgery. Unable to drive, poor balance, poor gait mechanics. Certification: Based on the above findings, I certify that this patient is confined to the home and needs intermittent half-way care, physical therapy and/or speech therapy, or continues to need occupational therapy. The patient is under my care, and I have initiated the establishment of the plan of care. The patient will be followed by a physician who will periodically review the plan of care.
--- NOTE | 2022-01-04 13:59 | PM.DS ---
DS: Providers Provider Date of Service: 01/08/22 Date of admission: 01/02/22 10:18 Primary care physician: Andriy Hartman MD Consults: 01/02/22 17:13 Consult to Hospitalist Routine Consulting Provider: Hospitalist Reason For Exam: diabetes DS: Diagnosis Discharge Diagnosis (1) Status post total knee replacement, right: Status: Acute DS: Summary Hospital Course Hospital Course: The patient underwent a successful right total knee arthroplasty, was transferred to PACU and then to the floor to recover. During their stay, their vitals were stable, afebrile at 97.5. Labs were unremarkable, H/H 9.0/28.3. . POD 1 She was started on ASA for DVT ppx, they also received services twice a day. Prior to discharge, their dressing was change, incision clean dry and intact, new Aquacel dressing applied and the plan was to be discharged home with PT Time Spent with Patient Time attestation: Total time spent providing and/or coordinating discharge services: Discharge coordination time: Less than 30 minutes Quality: Stroke Does the patient have a stroke diagnosis?: No Physical Exam Vital Signs: Vital Signs: Last Vital Signs Temp 97.5 F 01/04/22 12:00 Pulse 64 01/04/22 12:00 Resp 18 01/04/22 12:00 BP 135/64 01/04/22 12:00 Pulse Ox 94 01/04/22 12:00 BMI result Body Mass Index 33.5 DS: Data Data Completed and Pending Pending studies at discharge: Pending at discharge 01/02/22 14:24 Surgical [PTH] Routine Labs on day of discharge: Laboratory Results - last 24 hr 01/03/22 01/03/22 01/04/22 15:48 20:02 05:50 WBC 11.4 H RBC 3.21 L Hgb 9.0 L Hct 28.3 L MCV 88.2 MCH 28.0 MCHC 31.8 RDW 13.2 Plt Count 262 MPV 9.7 Immature Gran % (Auto) 0.4 Neut % (Auto) 72.5 Lymph % (Auto) 15.6 L Mclennan % (Auto) 7.7 Eos % (Auto) 3.5 Baso % (Auto) 0.3 Lymph # (Auto) 1.8 Mclennan # (Auto) 0.9 Eos # (Auto) 0.4 Baso # (Auto) 0.0 Abs Immat Gran (auto) 0.04 H Absolute Neuts (auto) 8.3 Absolute Nucleated RBC 0.000 Nucleated RBC % (auto) 0.0 Sodium Potassium Chloride Carbon Dioxide Anion Gap BUN Creatinine Estim Creat Clear Calc Estimated GFR POC Glucose 143 H 139 H Fasting Glucose Calcium COVID-19 (NEY) COVID-19 Clin Com 01/04/22 01/04/22 01/04/22 05:50 06:55 09:26 WBC RBC Hgb Hct MCV MCH MCHC RDW Plt Count MPV Immature Gran % (Auto) Neut % (Auto) Lymph % (Auto) Mclennan % (Auto) Eos % (Auto) Baso % (Auto) Lymph # (Auto) Mclennan # (Auto) Eos # (Auto) Baso # (Auto) Abs Immat Gran (auto) Absolute Neuts (auto) Absolute Nucleated RBC Nucleated RBC % (auto) Sodium 139 Potassium 4.8 Chloride 105 Carbon Dioxide 28 Anion Gap 11 L BUN 27 H Creatinine 0.97 Estim Creat Clear Calc 39.7 Estimated GFR 56 POC Glucose 108 Fasting Glucose 109 H Calcium 9.0 COVID-19 (NEY) Cancelled COVID-19 Clin Com Cancelled 01/04/22 01/04/22 10:42 11:28 WBC RBC Hgb Hct MCV MCH MCHC RDW Plt Count MPV Immature Gran % (Auto) Neut % (Auto) Lymph % (Auto) Mclennan % (Auto) Eos % (Auto) Baso % (Auto) Lymph # (Auto) Mclennan # (Auto) Eos # (Auto) Baso # (Auto) Abs Immat Gran (auto) Absolute Neuts (auto) Absolute Nucleated RBC Nucleated RBC % (auto) Sodium Potassium Chloride Carbon Dioxide Anion Gap BUN Creatinine Estim Creat Clear Calc Estimated GFR POC Glucose 101 Fasting Glucose Calcium COVID-19 (NEY) Negative COVID-19 Clin Com See Note Discharge Plan Discharge Patient Disposition: Home Health Service Discharge Diagnosis: rt tka Referrals: [facility] for home p.[facility]. [Other] - 1 Day ([facility] for home physical therPY TO START DAY AFTER DISCHARGE PCP PT/FAMILY TO CALL FOR [facility] FOLLOW UP ORTHOPEDIC SURGICAL FOLLOW UP PER DISCHARGE INSTRUCTIONS TRANSPORTATION [facility]) Jenise Mackenzie PA-C [Physician [place]] - 2 Weeks (01/18/22 1:00 [facility] Orthopedic Surgeons Gurdeep,Jenise, ANGEL) Discharge Medications: New sennosides [Senna Lax] 8.6 mg Tablet 17.2 mg PO BID 14 Days Qty: 56 0RF oxycodone 10 mg tablet 10 mg PO Q4H PRN (Reason: Pain, Moderate (Pain Scale 4-6) 7 Days Qty: 42 0RF celecoxib 200 mg Capsule 200 mg PO BID 30 Days Qty: 60 0RF aspirin 325 mg Tablet 325 mg PO BID 42 Days Qty: 84 0RF acetaminophen 325 mg Tablet 650 mg PO Q6H PRN (Reason: Pain, Mild (Pain Scale 1-3)) 30 Days Qty: 240 0RF Continued (DME) miscellaneous medical [place] [facility] [place] Instructions miscellaneous .MEDSUPPLY Qty: 1 0RF Rx Instructions: Bedside Commode nitroglycerin [Nitrostat] 0.4 mg Tablet, Sublingual 0.4 mg SUBLINGUAL Q5M PRN (Reason: Chest Pain) 0RF capsaicin 0.025 % cream 1 applic topical BID 0RF sennosides-docusate sodium [Senna Plus] 8.6-50 mg tablet 1 tab PO TID PRN (Reason: constipation) 0RF loratadine 10 mg tablet 1 tab PO DAILY PRN (Reason: Allergy Symptoms) 0RF valsartan 160 mg tablet 160 mg PO DAILY 0RF montelukast 10 mg tablet 10 mg PO DAILY 0RF calcium carbonate-vitamin D3 500 mg(1,250mg) -400 unit tablet 1 tab PO DAILY 0RF chlorthalidone 25 mg tablet 12.5 mg PO DAILY 0RF doxazosin 4 mg tablet 4 mg PO DAILY 0RF multivitamin Tablet 1 tab PO DAILY 0RF cholecalciferol (vitamin D3) 25 mcg (1,000 unit) capsule 25 mcg PO DAILY 0RF dicyclomine 10 mg capsule 10 mg PO TID 0RF spironolactone 25 mg tablet 25 mg PO DAILY 0RF rosuvastatin 40 mg tablet 40 mg PO DAILY 0RF metformin 500 mg tablet 500 mg PO BIDWMEAL 0RF evolocumab 140 mg/mL pen injector 140 mg subcut Q2W 0RF (DME) blood sugar diagnostic Strip See Rx Instructions ea Not Applicable DAILY Qty: 10 0RF Rx Instructions: As directed Discontinued aspirin 81 mg tablet,delayed release (DR/EC) 81 mg PO DAILY 0RF Discharge Orders: Discharge Order (Routine); Ordered 01/04/22 Ordered By: Jenise Mackenzie Diet: regular diet Activity on Discharge: Use cane or walker Stand Alone Forms: Patient Portal Discharge page Care Plan Goals: Restore function of joint Health Concerns: none Plan of Treatment: Physical Therapy Pain management DVT prophylaxis Assessment: Physical Therapy for Total knee arthroplasty: gait training, ROM 0-12, quad strength Limit stair climbing No showering, no tub bath-keep dressing clean, dry and intact No driving x6 weeks Continue Aspirin twice a day x 6 weeks Follow up with [facility] Orthopedics in 2 weeks Discharge Date/Time: 01/04/22 15:46
[2022-01-04] MEDS: oxyCODONE HCl Immed Release 5 MG TABLET 10 MG PO (14:18)
--- NOTE | 2022-01-04 15:42 | PC.NURSE ---
discharge instructions explained to pt utilizing cigarette making examiner
== END 2022-01-04 15:46 | disposition home health service (06) | DRG 470 ==
LOC: HO.SSSA 10:20 → HO.S3 15:23
PROVIDERS: Nurse Practitioner; Physician Assistant; Admitting Provider Orthopaedic Surgery; PCP Internal Medicine; Visit Provider Orthopaedic Surgery
PROC: 0SRC0J9 Replacement of Right Knee Joint with Synthetic Substitute, Cemented, Open Approach (ICD-10-PCS; CPT 27447; principal; 2022-01-02 14:00)
DX: M17.11 Unilateral primary osteoarthritis, right knee (principal); E11.9 Type 2 diabetes mellitus without complications; I10 Essential (primary) hypertension; Z20.822 Contact with and (suspected) exposure to COVID-19; Z88.0 Allergy status to penicillin; Z79.84 Long term (current) use of oral hypoglycemic drugs; Z79.899 Other long term (current) drug therapy
CPT/HCPCS: 36415; 73560; 80048; 82947; 85025; 86850; 86900; 86901; 87635; 87640; 87641; 88305; 88311; 97110; 97116; 97162; C1713; C1776; J0690; J1100; J1170; J2370; J3370

== ENCOUNTER → 2022-01-18 12:49 | Outpatient (BNVA) | payer MEDICARE, SELFPAY | PROVIDERS: PCP Internal Medicine; Visit Provider Physician Assistant | DX: Z47.1 Aftercare following joint replacement surgery (principal); Z96.651 Presence of right artificial knee joint | CPT/HCPCS: 99212 ==

== ENCOUNTER → 2022-02-12 10:30 | Outpatient (BNVA) | payer MEDICARE, SELFPAY | PROVIDERS: PCP Internal Medicine; Visit Provider Physician Assistant | DX: Z47.1 Aftercare following joint replacement surgery (principal); Z96.651 Presence of right artificial knee joint | CPT/HCPCS: 99212 ==

== ENCOUNTER 2022-02-12 11:43 | Outpatient (RCR) | payer OTHER, SELFPAY | END 2022-03-02 09:02 | disposition home or self-care (01) | LOC: HO.WCC 11:43 | PROVIDERS: PCP Internal Medicine; Visit Provider Physician Assistant | DX: E11.622 Type 2 diabetes mellitus with other skin ulcer (principal); L89.329 Pressure ulcer of left buttock, unspecified stage; L89.319 Pressure ulcer of right buttock, unspecified stage; L89.159 Pressure ulcer of sacral region, unspecified stage; L30.9 Dermatitis, unspecified; I10 Essential (primary) hypertension; Z79.84 Long term (current) use of oral hypoglycemic drugs | CPT/HCPCS: 99214 ==

== ENCOUNTER 2022-03-19 10:00 | Outpatient (RCR) | payer OTHER, SELFPAY ==
--- NOTE | 2022-01-29 16:36 | MHC.PT.EP ---
[facility] [place] Office [place] Office [place] Office [address] Cedric Bernard [address] [phone] F: [phone] F: [phone] F: [phone] F: [phone] Physical Therapy Plan of Care Date of Evaluation: Date of Surgery: 01/02/22 Diagnosis: R TKA 01/02/22. Assessment: Frequency and Duration: The patient will be seen 3x / wk x 6 wks. Short Term Goals: Initiate HEP Achieves > 124 degrees flexion; (initial: 105 degrees today after ther ex) Achieves neutral knee extension; initial 5 degrees flexion. Senior Care Goals: I with HEP. improve R knee Extension MMT to > 4/5; initial 4-5/. Negotiates stairs with reciprocal fashion; initial: unable. Pt will be able to walk 2 blocks with managed Sx; initial unable. Ambulated without AD. Treatment Plan: Modalities to reduce pain, spasms and effusion. Manual therapy to restore motion and function. Therapeutic exercise to improve strength and flexibility. Neuromuscular re-education for posture and balance. Therapeutic activities to return to functional activities of daily living. Electronically signed by: Rob Bajwa, PT, DPT Please sign and return to therapist. Thank you for your referral.
--- NOTE | 2022-03-19 10:51 | MHC.PT.DC ---
[facility] [place] Office [place] Office [place] Office [address] Cedric Bernard [address] [phone] F: [phone] F: [phone] F: [phone] F: [phone] Physical Therapy Discharge Report Diagnosis: R TKA 01/02/22. Date of Surgery: 01/02/22 Date of Evaluation: 01/29/22 Date of Discharge: 03/19/22 Treatments to Date: 13 Cancellations to Date: No Shows to Date: Discharge Status: Achieved Goals Improved Function Independent with HEP Discharge Summary: 03/19: Amee has been an active and motivated participant in her therapy in and out of the clinic. She is I with her HEP, she has met all of her therapeutic goals with some minor difficulty descending stairs which she is continuing to work on on her own. She is in agreement with DC at this time. ROM 0-134. Electronically signed by: Rob Bajwa PT. Please sign and return to therapist. Thank you for your referral.
== END 2022-03-19 10:53 | disposition home or self-care (01) ==
LOC: HO.PTCHIC 10:00
PROVIDERS: Visit Provider Orthopaedic Surgery
DX: Z96.651 Presence of right artificial knee joint (principal)
CPT/HCPCS: 97110; 97116; 97162

== ENCOUNTER 2022-03-26 08:50 | Outpatient (REF) | payer OTHER, SELFPAY ==
--- NOTE | ~2022-03-26 | XR_ITS ---
EXAMINATION: XR AP UPRIGHT BOTH KNEES XR LATERAL AND PATELLA VIEW, RIGHT KNEE CLINICAL INFORMATION: Pain in right knee. COMPARISON: X-ray the right knee December 2021. X-rays of both knees August 2021. TECHNIQUE: AP upright of both knees with additional lateral and patellar view right knee. FINDINGS: Right Knee: There is a total knee arthroplasty in place. The components are in the usual position and are unchanged. There is no periprosthetic fracture or surrounding abnormal lucency. There is no effusion. There is arterial calcification present. Skin ruel of the removed. Left Knee Limited: Osteoarthritis, likely at least moderate, manifested by joint space narrowing marginal osteophytes involving both the medial and lateral compartments. Surrounding bone and soft tissues are unremarkable. XR/XR knee standing BI IMPRESSION: Right total knee arthroplasty without complication or significant change by x-ray. Left knee limited reveals osteoarthritis, unchanged.
--- NOTE | ~2022-03-26 | XR_ITS ---
EXAMINATION: XR AP UPRIGHT BOTH KNEES XR LATERAL AND PATELLA VIEW, RIGHT KNEE CLINICAL INFORMATION: Pain in right knee. COMPARISON: X-ray the right knee December 2021. X-rays of both knees August 2021. TECHNIQUE: AP upright of both knees with additional lateral and patellar view right knee. FINDINGS: Right Knee: There is a total knee arthroplasty in place. The components are in the usual position and are unchanged. There is no periprosthetic fracture or surrounding abnormal lucency. There is no effusion. There is arterial calcification present. Skin ruel of the removed. Left Knee Limited: Osteoarthritis, likely at least moderate, manifested by joint space narrowing marginal osteophytes involving both the medial and lateral compartments. Surrounding bone and soft tissues are unremarkable. XR/XR knee RT 2V IMPRESSION: Right total knee arthroplasty without complication or significant change by x-ray. Left knee limited reveals osteoarthritis, unchanged.
== END 2022-03-26 08:51 | disposition home or self-care (01) ==
LOC: HO.HOSX 08:50
PROVIDERS: Visit Provider Physician Assistant
DX: Z47.1 Aftercare following joint replacement surgery (principal); Z96.651 Presence of right artificial knee joint
CPT/HCPCS: 73560; 73565; 99212

== ENCOUNTER 2022-06-11 10:00 | Outpatient (RCR) | payer OTHER, SELFPAY ==
--- NOTE | 2022-05-09 14:29 | MHC.PT.EP ---
[facility] [place] Office [place] Office [place] Office [address] Lizeth Bernard [address] [phone] F: [phone] F: [phone] F: [phone] F: [phone] Physical Therapy Plan of Care Date of Evaluation: Date of Surgery: Diagnosis: CHonic midline LBP. Assessment: Pt is a 76 y/o female with DM and CKD is referred to PT for eval and treat of lumbar dysfunction resulting in decreased tolerance and ability to perform ambulatory, and standing tasks for duration as well as lifting objects of weight, and HH chores secondary to decreased hip and core strength, decreased trunk ROM as well as decreased posture, increased tissue tension, pelvic asymmetry and pain. Pt is deemed an appropriate candidate to receive skilled PT in order to address her physical limitations to improve her functional ability. Frequency and Duration: The patient will be seen 2 x/ wk x 5 wks. Short Term Goals: Initiate HEP Improve baseline pain with activity to < 5/10; initial 8/10. Allocations Clerk Goals: I with HEP. Improve core strength to at least good; initial Fair +. Pt will be able to walk required distances with some pain; initial: pain restricts from walking moderate distances. (Maria G) Pt will report able to stand > 1 hour with managed LBP Sx; initial 10-20 min. Treatment Plan: Modalities to reduce pain, spasms and effusion. Manual therapy to restore motion and function. Therapeutic exercise to improve strength and flexibility. Neuromuscular re-education for posture and balance. Therapeutic activities to return to functional activities of daily living. Electronically signed by: Rob Bajwa PT. Please sign and return to therapist. Thank you for your referral.
== END 2022-06-15 16:11 | disposition home or self-care (01) ==
LOC: HO.PTCHIC 10:00
PROVIDERS: PCP Internal Medicine; Visit Provider Internal Medicine
DX: M54.50 Low back pain, unspecified (principal)
CPT/HCPCS: 97110; 97140; 97162

== ENCOUNTER 2022-06-18 09:03 | Outpatient (REF) | payer OTHER, SELFPAY ==
--- NOTE | ~2022-06-18 | XR_ITS ---
EXAMINATION: XR KNEES, STANDING AP XR KNEE, RIGHT CLINICAL INFORMATION: Knee pain COMPARISON: Standing AP knees and right knee radiographs 03/26/2022. TECHNIQUE: Standing AP view of both knees is performed along with lateral and axial patella views of the right knee. FINDINGS: Right: There has been prior right knee arthroplasty with hinged prosthesis. Hardware is intact. There is no fracture or dislocation or destructive process. Mild lucency at the lateral femoral prosthesis bone interface is stable. No interval osteolysis. No effusion appreciated. There are atherosclerotic calcifications again seen vasculature. Left: There are osteoarthritic changes medial lateral compartments again seen with joint narrowing and mild spurring no destructive process. No interval changes. XR/XR knee RT 2V IMPRESSION: Right: -Status post arthroplasty. Hardware intact. No interval fracture, destructive process, or osteolysis. -No effusion. No acute abnormality. Left: -Osteoarthritis medial lateral compartment similar to prior studies.
--- NOTE | ~2022-06-18 | XR_ITS ---
EXAMINATION: XR KNEES, STANDING AP XR KNEE, RIGHT CLINICAL INFORMATION: Knee pain COMPARISON: Standing AP knees and right knee radiographs 03/26/2022. TECHNIQUE: Standing AP view of both knees is performed along with lateral and axial patella views of the right knee. FINDINGS: Right: There has been prior right knee arthroplasty with hinged prosthesis. Hardware is intact. There is no fracture or dislocation or destructive process. Mild lucency at the lateral femoral prosthesis bone interface is stable. No interval osteolysis. No effusion appreciated. There are atherosclerotic calcifications again seen vasculature. Left: There are osteoarthritic changes medial lateral compartments again seen with joint narrowing and mild spurring no destructive process. No interval changes. XR/XR knee standing BI IMPRESSION: Right: -Status post arthroplasty. Hardware intact. No interval fracture, destructive process, or osteolysis. -No effusion. No acute abnormality. Left: -Osteoarthritis medial lateral compartment similar to prior studies.
== END 2022-06-18 09:04 | disposition home or self-care (01) ==
LOC: HO.HOSX 09:03
PROVIDERS: Visit Provider Physician Assistant
DX: M25.561 Pain in right knee (principal); M25.562 Pain in left knee
CPT/HCPCS: 73560; 73565

== ENCOUNTER → 2022-07-02 08:20 | Outpatient (BNVA) | payer OTHER, SELFPAY | PROVIDERS: PCP Internal Medicine; Visit Provider Orthopaedic Surgery | DX: M25.561 Pain in right knee (principal); Z96.651 Presence of right artificial knee joint | CPT/HCPCS: 99212 ==

== ENCOUNTER → 2022-10-01 09:07 | Outpatient (BNVA) | payer OTHER, SELFPAY | PROVIDERS: PCP Internal Medicine; Visit Provider Orthopaedic Surgery | DX: M17.12 Unilateral primary osteoarthritis, left knee (principal); E11.9 Type 2 diabetes mellitus without complications | CPT/HCPCS: 20610; 99212; J1100 ==

== ENCOUNTER 2022-12-31 11:23 | Outpatient (REF) | payer OTHER, SELFPAY ==
--- NOTE | ~2022-12-31 | XR_ITS ---
EXAMINATION: XR KNEE, RIGHT XR KNEE, LEFT XR KNEE AP STANDING CLINICAL INFORMATION: Pain. COMPARISON: Prior radiographs, most recently 06/18/2022. TECHNIQUE: Lateral and axial views of the right knee are submitted. Lateral and axial views of the left knee are submitted. AP bilateral standing view of the knees was obtained. FINDINGS: Prosthetic components of the right total knee arthroplasty are appropriately aligned without periprosthetic fracture or lucency. No component migration. No joint effusion. The lateral joint space compartment of the left knee is moderately narrowed, and the medial joint space compartment is very mildly narrowed. There is a mild secondary valgus configuration. There is narrowing of the patellofemoral compartment, most pronounced medially. There is tricompartment peripheral osteophyte formation. No fracture or dislocation is seen. No left knee joint effusion is seen. The soft tissue planes are unremarkable, without foreign body. XR/XR knee standing BI IMPRESSION: 1. Appropriate alignment of the right total knee arthroplasty without evidence of complications. 2. There is tricompartment osteoarthritic change of the left knee, most pronounced of the lateral joint space compartment, where it is moderate. There is a secondary mild valgus configuration.
--- NOTE | ~2022-12-31 | XR_ITS ---
EXAMINATION: XR KNEE, RIGHT XR KNEE, LEFT XR KNEE AP STANDING CLINICAL INFORMATION: Pain. COMPARISON: Prior radiographs, most recently 06/18/2022. TECHNIQUE: Lateral and axial views of the right knee are submitted. Lateral and axial views of the left knee are submitted. AP bilateral standing view of the knees was obtained. FINDINGS: Prosthetic components of the right total knee arthroplasty are appropriately aligned without periprosthetic fracture or lucency. No component migration. No joint effusion. The lateral joint space compartment of the left knee is moderately narrowed, and the medial joint space compartment is very mildly narrowed. There is a mild secondary valgus configuration. There is narrowing of the patellofemoral compartment, most pronounced medially. There is tricompartment peripheral osteophyte formation. No fracture or dislocation is seen. No left knee joint effusion is seen. The soft tissue planes are unremarkable, without foreign body. XR/XR knee LT 2V IMPRESSION: 1. Appropriate alignment of the right total knee arthroplasty without evidence of complications. 2. There is tricompartment osteoarthritic change of the left knee, most pronounced of the lateral joint space compartment, where it is moderate. There is a secondary mild valgus configuration.
--- NOTE | ~2022-12-31 | XR_ITS ---
EXAMINATION: XR KNEE, RIGHT XR KNEE, LEFT XR KNEE AP STANDING CLINICAL INFORMATION: Pain. COMPARISON: Prior radiographs, most recently 06/18/2022. TECHNIQUE: Lateral and axial views of the right knee are submitted. Lateral and axial views of the left knee are submitted. AP bilateral standing view of the knees was obtained. FINDINGS: Prosthetic components of the right total knee arthroplasty are appropriately aligned without periprosthetic fracture or lucency. No component migration. No joint effusion. The lateral joint space compartment of the left knee is moderately narrowed, and the medial joint space compartment is very mildly narrowed. There is a mild secondary valgus configuration. There is narrowing of the patellofemoral compartment, most pronounced medially. There is tricompartment peripheral osteophyte formation. No fracture or dislocation is seen. No left knee joint effusion is seen. The soft tissue planes are unremarkable, without foreign body. XR/XR knee RT 2V IMPRESSION: 1. Appropriate alignment of the right total knee arthroplasty without evidence of complications. 2. There is tricompartment osteoarthritic change of the left knee, most pronounced of the lateral joint space compartment, where it is moderate. There is a secondary mild valgus configuration.
== END 2022-12-31 11:24 | disposition home or self-care (01) ==
LOC: HO.HOSX 11:23
PROVIDERS: Visit Provider Orthopaedic Surgery
DX: M17.12 Unilateral primary osteoarthritis, left knee (principal); E11.9 Type 2 diabetes mellitus without complications; Z96.651 Presence of right artificial knee joint
CPT/HCPCS: 20610; 73560; 73565; 99212; J1100

== ENCOUNTER 2023-09-12 14:52 | Outpatient (AMB) | payer OTHER, SELFPAY ==
[2023-09-12 15:04] VITALS: BP 124/60; PULSE 65; RESP 14; O2SAT 97; BMI 32.0
--- NOTE | 2023-09-12 15:04 | MHC.OFFVIS ---
Intake Vital Signs 09/12/23 15:04 Height 4 ft 11 in Weight 158 lb 6 oz BMI 32.0 BP 124/60 Blood Pressure Location Lt brachial Position Sitting Respiration 14 Pulse 65 Pulse Source Pulse Oximeter Pulse Oximetry (%) 97 Oxygen Delivery Method Room Air Intake Visit Reasons: MIDLINE LOW BACK PAIN/CONFIRMED Allergies amlodipine Allergy (Verified 09/12/23 15:08) Abdominal Pain Penicillins Allergy (Verified 09/12/23 15:08) swelling, Rash tetanus and diphtheria toxoids Allergy (Verified 09/12/23 15:08) Unknown HPI HPI Comments History of Present Illness Details Amee is a very pleasant 69-year-old female who presented to the office today for evaluation management of her lower back pain. Patient was accompanied by her daughter who assisted with Azeri interpretation. Patient complaining of pain across her lower back without radiation into either leg that started approximately 6 months ago. She had knee surgery and states her back pain started after that. Pain today is rated as a 6/10, aching of that with standing will radiate up to the middle of her back. Patient has not tried physical therapy, chiropractor, acupuncture, massage or injections. She has utilized lidocaine patches in the past which provided some relief though she has run out. She will use heat and ice which do provide her some benefit of pain relief. She currently takes Tylenol Arthritis that improves the pain. The patient denies red flag symptoms including new loss of bowel, bladder or saddle anesthesia. In terms of muscle damage condition is described as aching and constant. Pain is negatively impacting patient's general activity, recreational activities, sleeping and walking. [facility], LAT[facility] Medical History Asthma CAD (coronary artery disease) Chronic stable angina CKD (chronic kidney disease), stage III Diabetes mellitus Diabetes mellitus Dysphagia HTN (hypertension) Hyperlipidemia Numbness of left foot Osteoarthritis of both knees Osteopenia determined by x-ray PVD (peripheral vascular disease) Surgical History H/O tubal ligation History of total knee arthroplasty Hx of colonoscopy Hx of hysterectomy S/P right coronary artery (RCA) stent placement Family History Father Heart problem Brother Heart problem Sister Heart problem Social History Are you a primary senior care assistant to a significant other at home: No Do you presently have visiting nurse or other home services: Yes (TOOLING SPECIALIST- Daughter) Alcohol intake: current Alcohol intake frequency: does not drink Patient Tobacco Use Status: Never used Tobacco Second Hand Smoke Exposure: No service: No Current occupational status: disabled Current occupation: rt handed Review of Systems Const All systems reviewed & are unremarkable except as noted in HPI and below Physical Exam Vital Signs: Last Vital Signs Pulse 65 09/12/23 15:04 Resp 14 09/12/23 15:04 BP 124/60 09/12/23 15:04 Pulse Ox 97 09/12/23 15:04 Oxygen Delivery Method Room Air 09/12/23 15:04 BMI result Body Mass Index 32.0 General: awake, alert, oriented. Answers questions appropriately. Fully engaged in examination. Skin: warm, dry, intact HEENT: Normocephalic. Hearing intact. Cardiac: External chest normal in appearance. Respiratory: No cough, audible wheezing or stridor. Abdomen: without gross distension. MS: No obvious swelling or deformities. Able to transition from sit to stand unassisted. Ambulates with bilaterally normal heel strike and toe off ROM: extension to 15 degrees. flexion to 90 degrees Strength: 5/5 BLE Sensation: intact and symmetric BLE DTR: intact and symmetric Straight leg raises with and without dorsiflexion negative bilaterally Facet loading positive bilaterally PANKAJ positive bilaterally, R>L Neurological: Oriented to person, place, time and situation. Thought process intact. Psychiatric: Appropriate mood and affect. Good judgment and insight. Results Reviewed Results Reviewed: 08/24/23 FINDINGS: Vertebral bodies demonstrate normal height. Benign intraosseous hemangioma is present involving L4 vertebral body extending to the adjacent pedicle. Conus demonstrates normal signal and terminates at L1-L2 level. Is mild to moderate degeneration of the lower thoracic disc spaces seen on sagittal images from T9 through T12 levels. T12-L2: No significant abnormalities are seen. L2-L3 level shows central disc bulge, ligamental and facet arthropathy and slight degenerative spondylolisthesis. The canal is patent. There is mild narrowing of the recesses and foramina. At L3-L4 level, there is shallow central and foraminal disc protrusion, mild disc degeneration and ligamental hypertrophy. The canal and recesses are patent. Mild foraminal stenosis is seen without significant neural impingement. At L4-L5 level, there is broad-based disc bulge and mild to moderate facet arthropathy. Grade 1 mild degenerative spondylolisthesis of L4 on L5 is seen. The canal is patent. Mild narrowing of the recesses and moderate narrowing of the foramina is seen. At L5-S1 level, there is shallow central disc protrusion, moderate disc desiccation is seen with anterior endplate spurring. The canal and recesses are patent. There is severe right and moderate left foraminal narrowing due to foraminal disc osteophyte complexes, encroaching on the exiting L5 nerve roots. No MRI evidence for spondylolysis is seen. Visualized upper SI joints are preserved. IMPRESSION: Multilevel changes of lumbar spondylosis, grade 1 degenerative spondylolisthesis, most pronounced at L4-L5 and L5-S1 levels, as detailed at individual levels above. Assessment & Plan Assessment & Plan (1) Lumbar facet arthropathy: Code(s): M47.816 - Spondylosis without myelopathy or radiculopathy, lumbar region (2) Strain of lumbar paraspinal muscle: Code(s): S39.012A - Strain of muscle, fascia and tendon of lower back, initial encounter Plan Amee is a very pleasant 69-year-old female who presented to the office today accompanied by her daughter for evaluation and management of her chronic lower back pain. Patient reports that she has been suffering with this pain for approximately 3 or 4 months. She had a recent MRI which was reviewed with her during the visit today. Continue with Tylenol Arthritis as needed for the pain Order placed for physical therapy eval and treat. Lidocaine 5% patches apply to most painful area, on for 12 hours off for 12 hours. Patient will follow-up in the office after completion of 3-4 weeks physical therapy to review effectiveness and amend care plan as warranted. Follow up sooner if needed. Orders: Orders PT Evaluation and Treatment Today M47.816 - Spondylosis without myelopathy or radiculopathy, lumbar region, S39.012A - Strain of muscle, fascia and tendon of lower back, initial encounter Medications: New lidocaine 5% leave on most painful area for up to 12 hrs 1 patch topical DAILY 30 ea 3RF Coding Level of Care Code New Pt Level 4 (84511) Diagnoses Lumbar facet arthropathy M47.816 Strain of lumbar paraspinal muscle S39.012A
== END 2023-09-12 16:15 | disposition home or self-care (01) ==
PROVIDERS: PCP Internal Medicine; Visit Provider Registered Nurse Emergency
DX: M47.816 Spondylosis without myelopathy or radiculopathy, lumbar region (principal); S39.012A Strain of muscle, fascia and tendon of lower back, initial encounter
CPT/HCPCS: 99204

== ENCOUNTER → 2023-09-12 14:52 | Outpatient (BNVA) | payer OTHER, SELFPAY | PROVIDERS: Visit Provider Registered Nurse Emergency ==

== ENCOUNTER 2023-11-05 10:37 | Outpatient (REF) | payer OTHER, SELFPAY ==
[2023-11-05 14:46] LABS: MANUAL DIFF FLAG NO
[2023-11-05 14:49] LABS: Basophils Percent Auto 0.2 % (0-2); Eosinophils Absolute Auto 0.2 X10*3/uL (0.0-0.4); Eosinophils Percent Auto 2.5 % (0-4); Hematocrit 34.7 % (37.0-47.0); Imm Gran Abs Auto 0.02 X10*3/uL (0.00-0.03); Imm Gran Pct Auto 0.2 % (0.0-0.4); Lymphocytes Absolute Auto 1.9 X10*3/uL (1.2-4.9); Lymphocytes Percent Auto 23.9 % (20-40); Mean Corpuscular HGB Conc 31.7 g/dl (31.0-35.0); Mean Corpuscular Hemoglobin 28.1 pg (27.0-33.0); Mean Corpuscular Volume 88.5 fL (80.0-98.0); Mean Platelet Volume 9.5 fL (9.4-12.3); Monocytes Absolute Auto 0.4 X10*3/uL (0.1-1.2); Monocytes Percent Auto 4.9 % (2-11); Neutrophils Absolute Auto 5.6 x10*3/uL (2.0-8.3); Neutrophils Percent Auto 68.3 % (45-73); Platelet Count 340 X10*3/uL (160-400); Red Blood Count 3.92 X10*6/uL (4.20-5.50); Red Cell Distribution Width 13.1 % (11.0-16.0); White Blood Count 8.1 X10*3/uL (4.8-10.8)
[2023-11-05 15:14] LABS: Iron 49 mcg/dL (30-160); Percent Iron Saturation 23 % (15-50); Total Iron Binding Capacity 215 mcg/dL (228-428); Unsaturated Iron Binding 166 ug/dL
[2023-11-05 15:35] LABS: Folate 8.6 ng/mL (> or = 4.0); Vitamin B12 205 pg/mL (200-900)
== END 2023-11-05 10:38 | disposition home or self-care (01) ==
LOC: HO.CHCLDS 10:37
PROVIDERS: Visit Provider Internal Medicine
DX: E11.9 Type 2 diabetes mellitus without complications (principal); R10.2 Pelvic and perineal pain
CPT/HCPCS: 36415; 82607; 82746; 83540; 85025; 87086

== ENCOUNTER 2024-01-10 08:20 | Outpatient (REF) | payer OTHER, SELFPAY ==
[2024-01-10 12:53] LABS: Alanine Aminotransferase 13 U/L (0-31); Alkaline Phosphatase 72 U/L (39-117); Anion Gap 12 (12-20); Aspartate Amino Transferase 20 U/L (5-31); Bilirubin Total 0.4 mg/dL (0.0-1.0); Blood Urea Nitrogen 18 mg/dL (9-16); Calcium 9.4 mg/dL (8.4-10.2); Carbon Dioxide 27 mmol/L (22-29); Chloride 108 mmol/L (96-108); Cholesterol 125 mg/dL (<200); Estimated Glomerular Filt Rate > 60; Glucose Random 71 mg/dL (60-115); HDL Cholesterol 47 mg/dL (>40); LDL Cholesterol Calculated 63 mg/dL (<100); Potassium 3.7 mmol/L (3.3-5.1); Sodium 143 mmol/L (135-145); Total Protein 6.8 g/dL (6.5-8.0); Triglycerides 76 mg/dL (<150)
[2024-01-12 20:28] LABS: TS Negative Control Passed; TS Panel A 0; TS Panel B 0; TS Positive Control Passed; TSpotTB Negative (Negative)
== END 2024-01-10 08:21 | disposition home or self-care (01) ==
LOC: HO.CHCLDS 08:20
PROVIDERS: Visit Provider Internal Medicine
DX: Z11.1 Encounter for screening for respiratory tuberculosis (principal); E11.9 Type 2 diabetes mellitus without complications
CPT/HCPCS: 36415; 80053; 80061; 86481

== ENCOUNTER 2024-07-10 08:28 | Outpatient (REF) | payer OTHER, SELFPAY | END 2024-07-10 08:29 | disposition home or self-care (01) | LOC: HO.CHCLDS 08:28 | PROVIDERS: Visit Provider Internal Medicine | DX: Z13.89 Encounter for screening for other disorder (principal) | CPT/HCPCS: 83013 ==

== ENCOUNTER 2024-07-15 13:18 | Outpatient (REF) | payer OTHER, SELFPAY | END 2024-07-15 13:19 | disposition home or self-care (01) | LOC: HO.CHCLNP 13:18 | PROVIDERS: Visit Provider Internal Medicine | DX: R14.0 Abdominal distension (gaseous) (principal) | CPT/HCPCS: 87338 ==

== ENCOUNTER 2024-09-21 13:42 | Outpatient (REF) | payer OTHER, SELFPAY | END 2024-09-21 13:43 | disposition home or self-care (01) | LOC: HO.CHCLNP 13:42 | PROVIDERS: Visit Provider Internal Medicine | DX: R14.0 Abdominal distension (gaseous) (principal) | CPT/HCPCS: 87338 ==

== ENCOUNTER 2024-12-21 08:42 | Outpatient (REF) | payer OTHER, SELFPAY ==
--- OUTSIDE RECORDS SUMMARY | 2024-12-21 12:52 | XMS_ITS | Encounter Summary ---
Author Organization [employer] Address [address] [place] [address] Care Team Providers Care Gas Leak Inspector Name Role Phone Andriy Scott MD Primary Care Prov ider Encounter Details Date Type Department Care Team ([facility] st Contact Info) Description 04/09/2023 Orders Only [facility] [address] [place], [place] [id number] Joann Patrick LPN Social History Tobacco Use Types Packs/Day Years Used Date Smoking Tobacco: Never Smokeless Tobacco: Never Alcohol Use Standard Drinks/Week Comments Never 0 (1 standard drink = 0.6 oz pur e alcohol) Depression Answer Date Recorded Patient Health Questionnaire-9 Score 0 02/21/2023 Depression Answer Date Recorded Patient Health Questionnaire-2 Score 0 02/21/2023 Comments Unknown Sex and Gender Information Value Date Recorded Sex Assigned at Female 09/24/2022 10:28 AM EDT Legal Sex Female 10:28 AM EDT Gender Identity Female 09/24/2022 10:28 AM EDT Sexual Orientation Straight 09/24/2022 10 :28 AM EDT COVID-19 Exposure Response Date Recorded In the last 10 days, have yo u been in contact with someone who was confirmed or suspected to have Coronavirus/COVID-19? No / Unsure 03/12/2023 3:07 PM EDT documented as of this encounter Plan of Treatment Not on file documented as of this encounter Visit Diagnoses Not on filedocumented in this encounter Additional Health Concerns Assessment Noted Time PHQ-9 Depression Total Score: 0 02/22/20 23 1:22 PM EDT documented as of this encounter Care Teams Gas Leak Inspector Relationship Specialty Start Date End Date WinklerAndriy Gonzalez MD [address] [place] [id number] PCP - General Internal Medicine 04/05/20 documented as of this encounter
--- OUTSIDE RECORDS SUMMARY | 2024-12-21 12:52 | XMS_ITS | Encounter Summary ---
Author Organization [employer] Address [address] [facility] 7t [place] [address] Care Team Providers Care Automotive Parts Salesperson Name Role Phone Andriy Scott MD Primary Care Prov ider Reason for Visit * Reason Comments Med Refill Encounter Details Date Type Department Care Team ([facility] st Contact Info) Description 12/19/2024 Refill [facility] MED & PEDS [address] [place], [place] [phone] Andriy Scott MD [address] [place] [address] Primary hypertension Social History Tobacco Use Types Packs/Day Years Used Date Smoking Tobacco: Never Smokeless Tobacco: Never Alcohol Use Standard Drinks/Week Comments Never 0 (1 standard drink = 0.6 oz pur e alcohol) Depression Answer Date Recorded Patient Health Questionnaire-9 Score 0 02/21/2023 Housing Stability Answer Date Recorded What is your housing situation today? I have adi wiggins 09/12/[address] you li ve. Do you have problems with any of the following? None of the above 09/12/2023 Food Insecurity Answer Date Recorded Within the past 12 months, y ou worried that your food would run out before you got money to buy more: Never True 09/12/2023 Within the past 12 months,th e food you bought just didn't last and you didn't have enough money to get more: Never True Transportation Answer Date Recorded In the past 12 months, has l ack of transportation kept you from medical appts, meetings, work or from getting things needed for daily living? No 09/12/2023 Utilities Answer Date Recorded In the past 12 months, has t he electric, gas, oil or water company threatened to shut off services in your home? No 09/12/2023 Depression Answer Date Recorded Patient Health Questionnaire-2 Score 0 02/21/2023 Comments Unknown Sex and Gender Information Value Date Recorded Sex Assigned at Female 09/24/2022 10:28 AM EDT Legal Sex Female 10:28 AM EDT Gender Identity Female 09/24/2022 10:28 AM EDT Sexual Orientation Straight 09/24/2022 10 :28 AM EDT documented as of this encounter Plan of Treatment Not on file documented as of this encounter Goals Goal Patient Goal Type Associated Problems Recent Progress Patient-Stated? Author Blood Pressure < 140/90 Blood Pressure 142/84(2024 8:51 AM EST) No Mi Alcaraz PharmD Reduce adverse events General No change(2023 1:55 PM EST) Yes Mi Alcaraz PharmD Note: 01/20/24: Patient complaining of leg swelling- ?d/t famotidine? 12/02/23: Patient complaining of feeling tired/weak - ?d/t doxazosin. - This resolved as of 01/20/24 documented as of this encounter Visit Diagnoses Diagnosis Primary hypertension Unspecified essential hypertension documented in this encounter Additional Health Concerns Assessment Noted Time PHQ-9 Depression Total Score: 0 02/22/20 23 1:22 PM EDT documented as of this encounter Care Teams Automotive Parts Salesperson Relationship Specialty Start Date End Date Andriy Scott MD [address] [place] [id number] PCP - General Internal Medicine 04/05/20 documented as of this encounter
--- OUTSIDE RECORDS SUMMARY | 2024-12-21 12:52 | XMS_ITS | Encounter Summary ---
Author Organization [employer] Address [address] [facility] 7[address] [place] [address] Care Team Providers Care Heel Nail Rasper Name Role Phone Andriy Scott MD Primary Care Prov ider Reason for Visit * Reason Comments Med Refill Encounter Details Date Type Department Care Team ([facility] st Contact Info) Description 05/17/2024 Refill [facility] CH[facility] MED & PEDS [address] [place], [place] [phone] Andriy Scott MD [address] [place] [address] Type 2 diabetes mellitus with stage 3a chronic kidney disease, without long-term current use of insulin ([facility]) Social History Tobacco Use Types Packs/Day Years [...] as of this encounter Visit Diagnoses Diagnosis Type 2 diabetes mellitus with stage 3a chronic kidney disease, without long-term current use of insulin ([facility]) documented in this encounter Additional Health Concerns Assessment Noted Time PHQ-9 Depression Total Score: 0 02/22/20 23 1:22 PM EDT documented as of this encounter Care Teams Heel Nail Rasper Relationship Specialty Start Date End Date Andriy Scott MD [address] [place] [id number] PCP - General Internal Medicine 04/05/20 documented as of this encounter
--- OUTSIDE RECORDS SUMMARY | 2024-12-21 12:52 | XMS_ITS | Encounter Summary ---
Author Organization [employer] Address [address] [facility] 7[address] [place] [address] Care Team Providers Care Benzol Still Operator Name Role Phone Andriy Scott MD Primary Care Prov ider Reason for Visit * Reason Onset Date Comments Nurse Triage 12/07/2024 Encounter Details Date Type Department Care Team ([facility] st Contact Info) Description 12/07/2024 Telephone [facility] CHC MED & PEDS [address] [place] [address] Andriy Scott MD [address] [place] [address] Nurse Triage Social History Tobacco Use Types Packs/Day Years [...] AM EDT documented as of this encounter Miscellaneous Notes * Telephone Encounter - Adenike Jett RN - 12/07/2024 10:37 AM EST Triage call [place] [email or web address] [id number], unable to continue due to spanish interpreter having computer problem. Ended call. Triage call [place] [email or web address] [place] [id number], Jacki. Pt reports having Covid 11/28/24 and since that time Pt reports having sores inside bilateral nares. Pt reports some bleeding in the morning with showering. Pt was started with flonase 11/30/24 and reports the soreswere there prior to starting this nasal spray. Pt doesn't have nasal saline moisturizing nasal spray. Pt reports a degree of discomfort and would like to see PCP. ASK apt with PCP 12/08/24 @ 830am. Ptagrees with disposition. Insurance is verified as active prior to booking. Multiple (2) protocols were used on this call. Disposition for Call: See in Office or Video Visit Today or Tomorrow Protocol Used: No Protocol Available (Adult) Protocol-Based Disposition: See in Office or Video Visit Today or Tomorrow Video visit not offered Positive Triage Question: * Nursing judgment * All higher-acuity triage questions were negative Care Advice Discussed: * Reasons To Call Back - New symptoms develop - You become worse Protocol Used: Nasal Allergies (Hay Fever) (Adult) Protocol-Based Disposition: See in Office or Video Visit within 3 Days Video visit not offered Positive Triage Question: * Patient wants to be seen * All higher-acuity triage questions were negative * Telephone Encounter - Emily Fu - 12/07/2024 10:01 AM EST Symptom: Sore Throat and nose symptoms Outcome: Schedule an appointment to be seen within 24 hours Reason: Caller denied all higher acuity questions documented in this encounter Plan of Treatment Not on [...] documented as of this encounter Care Teams Benzol Still Operator Relationship Specialty Start Date End Date Andriy Scott MD [address] [place] [id number] PCP - General Internal Medicine 04/05/20 documented as of this encounter
--- OUTSIDE RECORDS SUMMARY | 2024-12-21 12:52 | XMS_ITS | Clinical Summary ---
Author Organization [facility] Address [address] [facility] [address] [place] [address] Phone Care Team Providers Care Document Photographer Name Role Phone Andriy Winkler Primary Care Provider Allergies Active Allergy Reactions Criticality Noted Date Comments Amlodipine 09/07/2015 Diphth-Acell Pertussis-Tetanus 06/19 Lisinopril 05/17/2015 Penicillin G Rash Low 03/08/2021 Medications Aspirin Low Dose 81 MG EC tablet TOME ADIN TABLETA TODOS LOS D 1 Active albuterol HFA (PROVENTIL HFA;VENTOLIN HFA) 108 (90 Base) MCG/ACT inhaler Inhale 2 puffs 5 Active doxazosin (CARDURA) 4 MG tablet TOME ADIN TABLETA DOS LOS D 1 Active Repatha SureClick 140 MG/ML solution auto-injector INJECT 1 ML SUBCUTANEOUSLY EVERY 2 WEEKS IN THE ABDOMEN/THIGH/OUTE R AREA OF UPPER ARM (ROTATE SITES) 1 Active Multiple Vitamin (Daily-Leonarda Multivitamin) tablet TOME ADIN TABLETA TODOS LOS D 1 Active spironolactone (ALDACTONE) 25 MG tablet 1 Active valsartan (DIOVAN) 160 MG tablet TOME ADIN TABLETA TODOS LOS D 1 Active cetirizine (ZyrTEC) 10 MG tablet 1 Active FREESTYLE LITE test strip 1 Active nitroglycerin (NITROSTAT) 0.[address] 0.4 mg under the tongue every 5 (five) minutes if needed for chest pain Active Dulaglutide (Trulicity) 0.75 MG/0.5ML solution pen-injector Inject 0.5 mL under the skin 1 (one) time per week 5 mL 5 3 Active calcium carbonate (TUMS) 500 MG chewable tablet Chew 1 tablet 1 (one) time each day Active ferrous gluconate (FERGON) 324 (38 Fe) MG tablet Take 324 mg by mouth 1 (one) time each day with breakfast Active famotidine (PEPCID) 20 MG tablet Take 20 mg by mouth in the morning and 20 mg in the evening. Active Active Problems Problem Noted Date Diagnosed Date Diabetes mellitus 06/30/2024 Anemia in chronic kidney disease 06/16/2024 Overview (06/16/2024): Target Hgb 10-12 Assessment & Plan (07/01/2024 9:52 PM EDT): Hgb remains within target at 11.6 as of 06/16/24 Normal iron studies On PO iron supplement Will continue to monitor Assessment & Plan (06/16/2024 2:29 PM EDT): Hgb within targat at 11.0 as of 01/10/24 W/ normal iron studies, on oral iron supplementation Will continue to monitor need for Epo replacement, when Hgb falls <10 Chronic kidney disease, stage 2 (mild) Overview (06/16/2024): R/t hypertensive nephrosclerosis Avoid Nephrotoxins Borderline HgbA1c 5.8% in 05/2023 On Valsartan Optimize BP control Assessment & Plan (07/01/2024 9:50 PM EDT): Stable Creat 0.74, GFR 82 as of 06/16/24 Normal Lytes UPCR mildly elevated at 243 recently Assessment & Plan (06/16/2024 2:28 PM EDT): Stable Creat 0.76, eGFR >60 as of 01/10/24 Normal Lytes Monitor for proteinuria Type 2 diabetes mellitus wit h diabetic chronic kidney disease 03/08/2021 Chronic kidney disease stage 3 02/06/2021 Hypertensive renal disease 02/06/2021 Type 2 diabetes mellitus without complication Overview (06/30/2024): Last Assessment & Plan: Controlled, A1c from 10/2023 was 5.6%, no changes will be made, continue low carb/no sugar diet Coronary atherosclerosis 05/18/2015 Overview (02/06/2021): Followed by [facility]iology Dr.Robert Ward Abdominal pain 05/17/2015 Overview (09/18/2021): as per past Medical records from - Adult Primary Care- followed by Dr. Echavarria- CT Abdomen unremarkable 2010 and 01/2014- notes indicates pain may be due to irritable bowel syndrome. History of colonoscopy 05/17/2015 Overview (09/18/2021): as per past Medical records from - Adult Primary Care- done 2005 and 2011 - showed 2 polyps Obstructive sleep apnea syndrome 05/15/2015 Uncontrolled type 2 diabetes mellitus 05/15/2015 Overview (08/25/2024): A1C 7.1 -2/15 - 7.5 - 5/14 as per past Medical records from - Adult Primary Care Replacing diagnoses that were inactivated after the 08/25/24 Regulatory Import Hypertension 05/13/2015 Overview (06/16/2024): Follow low NA diet Avoid NSAIDs/Decongestant medications Target BP <120/80 Assessment & Plan (07/01/2024 9:49 PM EDT): Blood pressure is well controlled at home, has [facility] in the office C/w Spironolactone 25 mg qd C/w Valsartan 160 mg QD Doxazosin 4 mg QHS Edema present Continue to monitor BP at home and bring in readings to her visits No med changes made today Assessment & Plan (06/16/2024 2:21 PM EDT): Blood pressure is elevated today Taking Spironolactone 25 mg QD, Valsartan 160 mg QD, Doxazosin 4 mg QD No Edema Monitor BP at home and bring in readings to next visit in 2 weeks for evaluation Dyslipidemia 05/13/2015 Overview (09/18/2021): as per past Medical records from - Adult Primary Care Mild intermittent asthma 05/13/2015 Overview (09/18/2021): Extrinsic asthma unspecified- as per past Medical records from - Adult Primary Care Immunizations Name Administration Dates Next Due Shingrix 07/16/2022,04/19/2022 Tdap 01/25/2021 Family History Medical History Relation Comments Heart disease Father Hypertension Father Hypertension Sibling 1 brother Heart disease Sibling 2 brother Relation Status Comments Father Sibling 1 Sibling 2 Social History Tobacco Use Types Packs/Day Years Used Date Smoking Tobacco: Never Smokeless Tobacco: Never Tobacco Cessation:Counseling Given: Not Answered Alcohol Use Standard Drinks/Week Comments No 0 (1 standard drink = 0.6 oz pur e alcohol) Comments Unknown Sex and Gender Information Value Date Recorded Sex Assigned at Not on file Legal Sex Female 5:24 PM EST Gender Identity Not on file Sexual Orientation Not on file Last Filed Vital Signs Vital Sign Reading Time Taken Comments Blood Pressure 152/62 06/30/2024 11:04 AM EDT Pulse 72 06/30/2024 11:04 AM EDT Temperature - - Respiratory Rate - - Oxygen Saturation 97% 06/30/2024 11:04 AM EDT Inhaled Oxygen Concentration - - Weight 72.4 kg (159 lb 9.6 oz) 06/30/2024 11:04 AM EDT Height 139.7 cm (4' 7 ) 03/13/2022 3:28 PM EDT Body Mass Index 37.09 03/13/2022 3:28 PM EDT Plan of Treatment Upcoming Encounters Date Type Department Care Team (Late st Contact Info) Description 02/23/2025 10:30 AM EDT Office Visit [facility] [address] [facility] [address] [place] [address] Tyra Escobedo ARNP [address] [address] Health Maintenance Due Date Last Done Comments Pneumococcal Vaccine: 65+ Years (1 of 2 - PCV) 1951 Diabetes: Ophthalmology Exam 12/25/2020 Diabetes: Pedal Pulse Checked 12/25/2020 Diabetes: Sensory Foot Exam 12/25/2020 Diabetes: Visual Foot Exam 12/25/2020 Diabetes: Hemoglobin A1C 06/30/2024 024, 06/19/2023, 09/20/2021, Additional history exists Influenza Vaccine (#1) 2024 Hepatitis B Vaccine Aged Out No longe r eligible based on patient's age to complete this topic Procedures Procedure Name Priority Date/Time Associated Diagnosis Comments HEMOGLOBIN A1C Routine 06/19/2023 9:50 AM EDT Chronic kidney disease, stage 2 (mild) Hypertension Type 2 diabetes mellitus with diabetic chronic kidney disease (HCC) from Last 3 Months or Most Recently Relevant to Health Maintenance Results * (ABNORMAL) Hemoglobin A1c (06/19/2023 9:50 AM EDT) Hemoglobin A1C 5.8(H) (4.0-5.6) % [facility] Comment: MONITORING: In known diabetic patients, hemoglobin A1c targets should be discussed with health care provider. DIAGNOSTIC USE: ??The [place] Diabetes Association (ADA) and the World Health Organization (WHO) recommend the use of HbA1c to diagnose diabetes using a threshold of 6.5%. Patients who have an HbA1c between 5.7% and 6.4% are considered at increased risk for developing diabetes in the future. CAUTION: Falsely low HbA1c results may be observed in patients with hemolytic anemia, homozygous forms of abnormal hemoglobin (e.g. SS, CC, SC), , recent blood loss or hemoglobin F greater than 7%. Fructosamine may be used as an alternate test in these cases. REFERENCE: ADA: Standards of Medical Care in Diabetes 2020, The Journal of Clinical and Applied Research and Education Volume 43, Supplement 1 Testing performed or reported by [facility], a Service of [facility], [address] [place] [id number] Alessandro Lopez MD, Retail Management Trainee [facility]# [id number] Blood (Blood, Venous) 06/19/2023 9:50 AM EDT 06/19/2023 9:52 AM EDT us Zohaib De La Rosa MD LAB BLOOD ORDERABLES Final Re sult [facility] from Last 3 Months or Most Recently Relevant to Health Maintenance Insurance [address] [place], [place] [id number] [facility] MCR ([id number]) [address] [place] [id number] [facility] MCR ([id number]) Care Teams Document Photographer Relationship Specialty Start Date End Date Andriy Winkler PCP - General Internal Medicine 03/08/21
--- OUTSIDE RECORDS SUMMARY | 2024-12-21 12:52 | XMS_ITS | Clinical Summary ---
Author Organization [employer] Address [address] [facility] [address] [place] [address] Care Team Providers Care Adjunct Business Instructor Name Role Phone Andriy Scott MD Primary Care Prov ider Allergies Active Allergy Reactions Criticality Noted Date Comments Amlodipine Medium 09/07/2015 Other reaction(s): abdominal pain , Abdominal pain' feeling weak/tired Diphth-Acell Pertussis-Tetanus 06/19/2023 Lisinopril Medium 05/17/2015 Feeling weak/tired Penicillins Rash,Swelling Low 05/13/2015 Medications lidocaine-priloc leatha (Emla) 2.5-2.5 % creamIndications :Mid-back pain, acute Apply tid to affected area of back 30 g 3 023 Active triamcinolone (Kenalog) 0.1 % cream Apply topically if needed in the morning and at bedtime (pain and swelling). 30 g 5 023 Active ceramides (CeraVe) moisturizing cream Apply 1 application topically if needed for dry skin. 340 g 3 023 Active Diclofenac Sodium 1 % gelIndications:O ther back pain, unspecified chronicity Apply to the affected area topically BID prn 50 g 1 023 Active Repatha SureClick 140 MG/ML injection INJECT 1ml SUBCUTANEOUSLY EVERY 14 DAYS 023 Active albuterol 108 (90 Base) MCG/ACT inhaler inhale 2 puff by inhalation route every 4 - 6 hours as needed as needed 015 Active lidocaine (Lidoderm) 5 % patch Apply 1 patch topically in the morning. Remove & discard patch within 12 hours or as directed by MD. 30 patch 1 023 Active Calcium Carb-Cholecalcif jean 500-10 MG-MCG chewable tabletIndication s:Osteopenia of lumbar spine TAKE ONE TABLET EVERY MORNING 90 tablet 3 024 Active ALPRAZolam (Xanax) 0.5 MG tablet TAKE ONE TABLET ONE-HALF HOUR BEFORE travel Active ketotifen (Zaditor) 0.025 % ophthalmic solution Administer 1 drop into both eyes 2 times daily. As needed for allergy Active Trulicity 0.75 MG/0.5ML solution pen-injectorIndi cations:Type 2 diabetes mellitus with stage 3a chronic kidney disease, without long-term current use of insulin ([facility]) INJECT ONE PEN (=0.75MG) SUBCUTANEOUSLY ONCE A WEEK DIRECTED 2 mL 5 024 Active cholecalciferol (Vitamin D-3) 25 MCG tablet TAKE ONE TABLET EVERY MORNING 90 tablet 3 024 Active nitroglycerin (Nitrostat) 0.[address] 1 tablet (0.4 mg) under the tongue every 5 (five) minutes if needed for chest pain. 30 tablet 024 2024 Active doxazosin (Cardura) 4 MG tabletIndication s:Primary hypertension TAKE ONE TABLET EVERY MORNING 30 tablet 8 024 Active Multiple Vitamin (Multivitamin) tabletIndication s:Primary hypertension TAKE ONE TABLET EVERY MORNING 30 tablet 8 024 Active glucose blood (FREESTYLE LITE) test stripIndications :Type 2 diabetes mellitus without complication, without long-term current use of insulin ([facility]) TEST BLOOD SUGAR TWICE DAILY 100 strip 11 024 Active Aspirin Low Dose 81 MG chewable tablet CHEW ONE TABLET EVERY MORNING 90 tablet 1 024 Active rosuvastatin (Crestor) 20 MG tabletIndication s:Mixed hyperlipidemia TAKE ONE TABLET EVERY NIGHT AT BEDTIME 90 tablet 1 024 Active valsartan (Diovan) 160 MG tablet TAKE 1 TABLET EVERY MORNING 90 tablet 1 024 Active cetirizine (ZyrTEC) 10 MG tablet TAKE ONE TABLET EVERY NIGHT AT BEDTIME NEEDED 90 tablet 1 08/22/2 024 Active Omeprazole 20 MG tablet delayed-release Take 20 mg by mouth 2 times daily. 28 tablet 024 Active spironolactone (Aldactone) 25 MG tabletIndication s:Primary hypertension TAKE ONE-HALF TABLET EVERY MORNING 15 tablet 3 024 Active Mometasone Furoate (Asmanex, 120 Metered Doses,) 220 MCG/ACT aerosol powder Inhale 1 puff 2 times daily. 60 each 2 024 Active TRUEplus Lancets 33G misc TEST BLOOD SUGAR TWICE DAILY 100 each 11 024 Active Trulicity 0.75 MG/0.5ML solution auto-injectorInd ications:Type 2 diabetes mellitus with stage 3a chronic kidney disease, without long-term current use of insulin ([facility]) INJECT ONE PEN (=0.75MG) SUBCUTANEOUSLY ONCE A WEEK DIRECTED 2 mL 3 Active ferrous gluconate (Fergon) 324 (37.5 Fe) MG tablet TAKE ONE TABLET EVERY OTHER DAY IN THE MORNING 60 tablet 1 024 Active isosorbide mononitrate ER (Imdur) 30 MG 24 hr tablet TAKE ONE TABLET EVERY MORNING 90 tablet 024 Active montelukast (Singulair) 10 MG tabletIndication s:Non-seasonal allergic rhinitis due to fungal spores TAKE ONE TABLET EVERY NIGHT AT BEDTIME 90 tablet 024 Active fluticasone (Flonase) 50 MCG/ACT nasal sprayIndications :Non-seasonal allergic rhinitis due to fungal spores Administer 1 spray into each nostril Once per day. Shake gently. Before first use, prime pump. After use, clean tip and replace cap. 16 g 025 2025 Active sodium chloride ([place] Nasal [place]) 0.65 % nasal spray Administer 1 spray into each nostril if needed for congestion. 30 mL 12 025 2025 Active fluticasone (Flonase) 50 MCG/ACT nasal sprayIndications :Non-seasonal allergic rhinitis due to fungal spores Administer 1 spray into each nostril in the morning. Shake gently. Before first use, prime pump. After use, clean tip and replace cap. 16 g 11 023 2024 Discontinued(R eorder (will not trigger notification to Pharmacy)) montelukast (Singulair) 10 MG tabletIndication s:Non-seasonal allergic rhinitis due to fungal spores TAKE ONE TABLET EVERY NIGHT AT BEDTIME 90 tablet 3 024 2023 Discontinued isosorbide mononitrate ER (Imdur) 30 MG 24 hr tablet Take 1 tablet (30 mg) by mouth in the morning. 90 tablet 3 024 2023 Discontinued mupirocin (Bactroban) 2 % ointment Apply topically 3 times daily for 10 days. 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 Will order confirmation test Diabetes mellitus 06/30/2024 Anemia in chronic kidney disease 06/16/2024 Overview (11/30/2024): Target Hgb 10-12 Chronic LLQ pain 01/09/2024 Assessment & Plan (01/09/2024 1:12 PM EST): Will order a ct scan without contrast, no bleeding, no fever/chills, but patient complains of persistent llq pain Chest pain 11/26/2023 Other microscopic hematuria 11/05/2023 Assessment & Plan (11/05/2023 10:28 AM EST): Will repeat u/a, u/a from ER 10/29 was negative for blood in urine, she is asymptomatic. Vaccination refused by patient 11/05/2023 Pelvic pain 11/01/2023 Assessment & Plan (11/01/2023 4:16 PM EST): Patient that presented visit with complaints of Pelvic Pain will be sent for a CT Abdomen. Will follow up with results. Chest pain at rest 07/09/2023 Intertriginous candidiasis 03/12/2023 Assessment & Plan (03/12/2023 6:11 PM EDT): Patient with lesions under her breast, abdomen and inguinal area, will provide nystatin for fungal infection, told to maintain area dry Candidal intertrigo 02/21/2023 Assessment & Plan (03/30/2024 8:16 PM EDT): Continue topical antifungal cream, avoid humidity, wear cotton underwear, call back if not improving Assessment & Plan (03/26/2023 1:39 PM EDT): Will order oral fluconazole and topical clotrimazole, avoid leaving area wet, call back if worsening Assessment & Plan (02/21/2023 1:35 PM EDT): Will provide diflucan x 2 weeks, maintain area dry Dermatitis 02/21/2023 Assessment & Plan (02/21/2023 1:37 PM EDT): Patient will be provided triamcinolone to be mixed with cerave, if worsening call back Gastroesophageal reflux disease without esophagi tis 02/21/2023 Assessment & Plan (02/21/2023 1:38 PM EDT): Patient having hearburn, lifestyle modifications were discussed, will provide omeprazole Primary hypertension 11/23/2022 Assessment & Plan (09/14/2024 3:31 PM EDT): Controlled, continue low sodium diet and exercise as tolerated, keep bp log, follow up in 3 months Assessment & Plan (01/09/2024 1:04 PM EST): Controlled, reinforced low sodium diet and exercise as tolerated, she has mild edema on lower extremity, told to elevate them, use compression stockings, no tenderness or erythema on examination Assessment & Plan (11/05/2023 10:28 AM EST): Controlled, continue current treatment, keep bp log Assessment & Plan (11/23/2022 1:30 PM EST): Controlled, no changes will be made, reinforced low sodium diet and exercise as tolerated Non-seasonal allergic rhinitis due to fungal spo res 11/23/2022 Assessment & Plan (11/23/2022 1:41 PM EST): Will provide flonase, told to keep air humidified PAD (peripheral artery disease) 03/20/2021 Overview (11/30/2024): Last Assessment & Plan: Follows with Dr. Bhatia Chronic kidney disease, stage 2 (mild) Disorder of kidney 02/06/2021 Coronary artery disease invo lving habematolel heart without angina pectoris 12/15/2020 Overview (11/30/2024): Last Assessment & Plan: No ischemic symptoms currently, troponin was negative during hospitalization. There was mention of completing an echocardiogram outpatient. I did order this. Peripheral vascular disease 12/01/2020 Type 2 diabetes mellitus without complication Assessment & Plan (09/14/2024 3:32 PM EDT): Controlled, on trulicity for diabetes and cardiovascular benefit, continue low carb/no sugar diet, follow up in 3 months Assessment & Plan (01/09/2024 1:08 PM EST): Controlled, A1c from 10/2023 was 5.6%, no changes will be made, continue low carb/no sugar diet Assessment & Plan (11/05/2023 10:30 AM EST): Controlled A1c < 7.0%, continue current treatment Assessment & Plan (11/23/2022 1:29 PM EST): Controlled, last a1c from 07/2022 on trulicity, reinforced low carbohydrated diet, new labs on 01/2023 Hyperlipidemia 03/27/2019 Assessment & Plan (11/23/2022 1:32 PM EST): On rosuvastatin, last ldl was at target, no changes will be made Stage 3 chronic kidney disease 03/27/2019 Assessment & Plan (01/09/2024 1:07 PM EST): Followed by nephrology, she is on arb, no changes will be made Mild persistent asthma without complication 01/2019 Obesity 03/27/2019 Osteopenia determined by x-ray 03/27/2019 Primary osteoarthritis of both knees 03/27/2019 Stable angina 03/27/2019 Mixed hyperlipidemia 11/26/2018 Overview (11/30/2024): Last Assessment & Plan: Last lipid panel 06/14 total cholesterol 96, HDL 50, LDL 23. Continue statin and injectable. Diverticulosis 04/29/2018 Chronic gastritis 02/09/2016 Internal hemorrhoids 09/05/2015 Coronary atherosclerosis 05/18/2015 Overview (07/09/2023): Followed by [facility] Dr.Robert Ward Followed by [facility] Dr.Robert Ward Assessment & Plan (01/09/2024 1:04 PM EST): Followed by cardiology, no new anginal events reported Assessment & Plan (11/05/2023 10:29 AM EST): No further episode of chest pain, she has scheduled follow up with cardiology on November 2023 Abdominal pain 05/17/2015 Overview (07/09/2023): as per past Medical records from - Adult [facility]- followed by Dr. Echavarria- CT Abdomen unremarkable 2010 and 01/2014- notes indicates pain may be due to irritable bowel syndrome. as per past Medical records from - Adult Primary [facility]- followed by Dr. Echavarria- CT Abdomen unremarkable 2010 and 01/2014- notes indicates pain may be due to irritable bowel syndrome. Chronic midline low back pain without sciatica 0 05/15/2015 Assessment & Plan (09/27/2023 1:47 PM EDT): Patient saw pain management, pending physical therapy, will provide lidocaine patches, no neurologic deficit, continue conservative management Assessment & Plan (08/06/2023 4:53 PM EDT): Chronic low back pain, she has tried PT before, not interested in referral, pain is continous, no neurologic deficit, will refer for a Open MRI (she has anxiety/phobia), will also refer to pain management Obstructive sleep apnea syndrome 05/15/2015 Uncontrolled type 2 diabetes mellitus 05/15/2015 Overview (07/09/2023): A1C 7.1 -2/15 - 7.5 - 5/14 as per past Medical records from - Adult Primary [facility] A1C 7.1 -2/15 - 7.5 - 5/14 as per past Medical records from - Adult [facility] Dyslipidemia 05/13/2015 Overview (07/09/2023): as per past Medical records from - Adult [facility] as per past Medical records from - Adult [facility] Mild intermittent asthma 05/13/2015 Overview (07/09/2023): Extrinsic asthma unspecified- as per past Medical records from - Adult Primary [facility] Extrinsic asthma unspecified- as per past Medical records from - Adult Primary [facility] Essential hypertension 05/13/2015 Overview (07/09/2023): as per past Medical records from - Adult Primary [facility] as per past Medical records from - Adult [facility] Hypertension 05/13/2015 Overview (11/30/2024): Follow low NA diet Avoid NSAIDs/Decongestant medications Target BP <120/80 Encounters Date Type Department Care Team Description 12/19/2024 Refill [facility] [address] [place] [address] Andriy Scott MD Primary hypertension 12/08/2024 8:30 AM EST Office Visit [facility] [address] [place] [address] Andriy Scott MD Nasal sore (Primary Dx); Type 2 diabetes mellitus without complication, without long-term current use of insulin ([facility]) 12/08/2024 Travel 12/07/2024 Telephone [facility] [address] [place] [address] Andriy Scott MD Nurse Triage 11/30/2024 Refill [facility] [address] [place] [address] Andriy Scott MD Non-seasonal allergic rhinitis due to fungal spores 11/21/2024 Refill [facility] [address] [place] [address] Andriy Scott MD Non-seasonal allergic rhinitis due to fungal spores 09/26/2024 Refill [facility] [address] [place] [address] Andriy Scott MD 09/20/2024 Refill [facility] [address] [place] [address] Andriy Scott MD Type 2 diabetes mellitus with stage 3a chronic kidney disease, without long-term current use of insulin ([facility]) from Last 3 Months Immunizations Name Administration Dates Next Due Tdap 01/25/2021 Zoster, Recombinant 07/16/2022,04/19/2022 Family History Medical History Relation Name Comments Coronary artery disease Brother Prostate cancer Brother Coronary artery disease Father Coronary artery disease Sister Relation Name Status Comments Brother Father Sister Social History Tobacco Use Types Packs/Day Years Used Date Smoking Tobacco: Never Smokeless Tobacco: Never Tobacco Cessation:Counseling Given: Not Answered Alcohol Use Standard Drinks/Week Comments Never 0 (1 standard drink = 0.6 oz pur e alcohol) Depression Answer Date Recorded Patient Health Questionnaire-9 Score 0 02/21/2023 Housing Stability Answer Date Recorded What is your housing situation today? I have adi feliciano 09/12/[address] you li [...] Orientation Straight 09/24/2022 10 :28 AM EDT Last Filed Vital Signs Vital Sign Reading Time Taken Comments Blood Pressure 142/84 12/08/2024 8:51 AM EST Pulse 68 12/08/2024 8:51 AM EST Temperature 36.1 ??C (97 ??F) 12/08/2024 8:51 AM EST Respiratory Rate 16 12/08/2024 8:51 AM EST Oxygen Saturation 98% 09/14/2024 10:51 AM EDT Inhaled Oxygen Concentration - - Weight 71 kg (156 lb 9.6 oz) 12/08/2024 8:51 AM EST Height 142.2 cm (4' 8 ) 12/08/2024 8:51 AM EST Body Mass Index 35.11 12/08/2024 8:51 AM EST Plan of Treatment Health Maintenance Due Date Last Done Comments Pneumococcal Vaccine: 65+ Years (1 of 2 - PCV) 1950 Eye Exam 1954 Alcohol/Substance Use Screening 1956 RSV Patients and Patients Aged 60 years or older (1 - 1-dose 75+ series) 2019 Dental Oral Exam 02/07/2024 08/08/2023, 01/2022, 01/03/2021, Additional history exists Dental Prophylaxis 02/07/2024 08/08/2023, 0 07/10/2022, 12/17/2019, Additional history exists Depression Screening 02/22/2024 02/21/2023, 02/22/20 COVID-19 Vaccine ( season) 2024 10/30/2021, 04/10/2021, 03/20/2021 Influenza Vaccine (#1) 2024 Dental X-Ray: Bitewings 08/09/2024 08/08/20 23, 06/27/2022, 01/03/2021, Additional history exists Diabetes: Foot Exam 11/05/2024 11/05/2023, 11/05/2023, 11/05/2023, Additional history exists SDOH Screening 01/02/2025 01/02/2024 Lipid Panel 01/10/2025 01/10/2024, 05/0 01/2023, 08/03/2022, Additional history exists Diabetes: Hemoglobin A1C 03/15/2025 024, 03/30/2024, 11/05/2023, Additional history exists Tobacco Screening 06/05/2025 06/05/2024 Dental X-Ray: Full Mouth 08/09/2026 08/08/2023, 02/24 DTaP/Tdap/Td Vaccines (2 - Td or Tdap) 01/25/2031 01/25/2021 Zoster Vaccines Completed 07/16/2022, 04/19/2022 HIB Vaccines Aged Out No longer eligi ble based on patient's age to complete this topic HPV Vaccines Aged Out No longer eligi ble based on patient's age to complete this topic Hepatitis A Vaccines Aged Out No long er eligible based on patient's age to complete this topic Hepatitis B Vaccines Aged Out No long er eligible based on patient's age to complete this topic IPV Vaccines Aged Out No longer eligi ble based on patient's age to complete this topic Meningococcal Vaccine Aged Out No chong tyrone eligible based on patient's age to complete this topic RSV under 20 months Aged Out No longe r eligible based on patient's age to complete this topic Rotavirus Vaccines Aged Out No longer eligible based on patient's age to complete this topic Goals Goal Patient Goal Type Associated Problems Recent Progress Patient-Stated? Author Blood Pressure < 140/90 Blood Pressure 142/84(2024 8:51 AM EST) No Mi Alcaraz, Stoney Reduce adverse events General No change(2023 1:55 PM EST) Yes Mi Alcaraz, Stoney Note: 01/20/24: Patient complaining of leg swelling- ?d/t famotidine? 12/02/23: Patient complaining of feeling tired/weak - ?d/t doxazosin. - This resolved as of 01/20/24 Procedures Procedure Name Priority Date/Time Associated Diagnosis Comments POCT GLUCOSE Routine 12/08/2024 8:54 AM EST Type 2 diabetes mellitus without complication, without long-term current use of insulin ([facility]) HELICOBACTER PYLORI AG, EIA, STOOL Routine 09/21/2024 7:30 AM EDT Bloating POCT GLYCATED HEMOGLOBIN, TOTAL Routine 09/14/2024 11:45 AM EDT Type 2 diabetes mellitus without complication, without long-term current use of insulin ([facility]) LIPID PANEL, STANDARD Routine 01/10/2024 8:24 AM EST Type 2 diabetes mellitus without complication, without long-term current use of insulin ([facility]) PROPHYLAXIS - ADULT Routine 08/08/2023 1 1:00 AM EDT DIAGNOSTIC - DIAGNOSTIC IMAGING - INTRAORAL - COMPREHENSIVE SERIES OF RADIOGRAPHIC IMAGES Routine 08/08/2023 11:00 AM EDT PERIODIC ORAL EVALUATION - ESTABLISHED PATIENT Routine 08/08/2023 11:00 AM EDT from Last 3 Months or Most Recently Relevant to Health Maintenance Results * POCT Glucose (12/08/2024 8:54 AM EST) Glucose Blood, POC 121 60 - 200 mg/dL QC Media Lot # [id number] Lot# Expiration Date Blood Capillary blood specimen / Unknown 12/08/2024 8:54 AM EST Andriy Hartman MD POINT OF CARE TEST ENTER/EDIT ORDERABLES Final Result * Helicobacter pylori??Antigen, EIA, Stool (09/21/2024 7:30 AM EDT) H pylori Ag Stool SEE NOTE [facility] Comment:HELICOBACTER PYLORI AG, EIA, STOOL Micro Number: [id number] Test Status: Final Specimen Source: Stool Specimen Quality: Adequate H.pylori Ag: Not Detected Antimicrobials, proton pump inhibitors, and bismuth preparations inhibit H. pylori and ingestion up to two weeks prior to testing may cause false negative results. If clinically indicated the test should be repeated on a new specimen obtained two weeks after discontinuing treatment. Reference Range: Not DetectedTHIS TEST WAS PERFORMED AT:[facility] [place] [id number] ASHFORD MD Stool Rectal contents / Unknown 09/21/2024 7:30 AM EDT 09/21/2024 2:17 PM EDT Andriy Hartman MD LAB BODY FLUIDS AN D STOOLS ORDERABLES Final Result [facility] [address] [place], [place] [id number] [phone] * POCT HGB A1C (09/14/2024 11:45 AM EDT) Hemoglobin A1C 5.5 4.0 - 6.0 % QC Media Lot # [id number] Lot# Expiration Date Blood 09/14/2024 11:4 5 AM EDT Andriy Hartman MD POINT OF CARE TEST ENTER/EDIT ORDERABLES Final Result * Lipid Panel, Standard (01/10/2024 8:24 AM EST) Triglycerides 76 <150 mg/dL [facility] Comment:Desirable Triglyceri de: less than 150 mg/dLBorderline High Triglyceride 150-199 mg/dLHigh Triglyceride: 200-499 mg/dLVery High Triglyceride: greater than or equal to 5OO mg/dL Cholesterol 125 <200 mg/dL [facility] Comment:Desirable Cholestero l: less than 200 mg/dLBorderline High Cholesterol: 200-239 mg/dLHigh Cholesterol: greater than 239 mg/dL LDL Cholesterol Calculated 63 <100 mg/dL [facility] Comment:Desirable LDL: less than 100 mg/dLNear Optimal/Above Optimal LDL: 110- 129 mg/dLBorderline High LDL: 130-159 mg/dLHigh LDL: 160-189 mg/dLVery High LDL: greater than or equal to 190 mg/dL HDL Cholesterol 47 >40 mg/dL [facility] Comment:Desirable HDL: great er than 40 mg/dL Note: This HDL assay may give artificially low results in patients with liver disease. Blood Venous blood specimen / Unknown 01/10/2024 8:24 AM EST 01/10/2024 12:30 PM EST Andriy Hartman MD LAB BLOOD ORDERABL ES Final Result [facility] [address] [place] [address] [phone] from Last 3 Months or Most Recently Relevant to Health Maintenance Insurance [facility] - [facility] [address] [id number] Care Teams Adjunct Business Instructor Relationship Specialty Start Date End Date WinklerAndriy Hebert MD [address] [place] [address] [address] [id number] PCP - General Internal Medicine 04/05/20
--- OUTSIDE RECORDS SUMMARY | 2024-12-21 12:52 | XMS_ITS | Encounter Summary ---
Author Organization [employer] Address [address] [facility] [address] [place] [address] Care Team Providers Care Headlight Adjuster Name Role Phone Andriy Scott MD Primary Care Prov ider Encounter Details Date Type Department Care Team (Latest Contact Info) Description 12/08/2024 Travel Social History Tobacco Use Types Packs/Day Years [...] documented as of this encounter Care Teams Headlight Adjuster Relationship Specialty Start Date End Date Andriy Scott MD [address] [place] [id number] PCP - General Internal Medicine 04/05/20 documented as of this encounter
--- OUTSIDE RECORDS SUMMARY | 2024-12-21 12:52 | XMS_ITS | Encounter Summary ---
Author Organization [employer] Address [address] [facility] [address] [place] [address] Care Team Providers Care Torch Straightener Name Role Phone Andriy Scott MD Primary Care Prov ider Encounter Details Date Type Department Care Team ([facility] st Contact Info) Description 04/06/2024 Orders Only [facility] [address] [place], [place] [phone] Andriy Scott MD [address] [place] [address] Social History Tobacco Use Types Packs/Day Years [...] documented as of this encounter Care Teams Torch Straightener Relationship Specialty Start Date End Date Andriy Scott MD [address] [place] [id number] PCP - General Internal Medicine 04/05/20 documented as of this encounter
--- OUTSIDE RECORDS SUMMARY | 2024-12-21 12:52 | XMS_ITS | Encounter Summary ---
Author Organization [employer] Address [address] [facility] [address] [place] [address] Care Team Providers Care Dimpling Machine Operator Name Role Phone Andriy Scott MD Primary Care Prov ider Reason for Visit * Reason Onset Date Comments Med Refill 11/30/2024 Encounter Details Date Type Department Care Team (Late st Contact Info) Description 11/30/2024 Refill [facility] [address] [place] [address] Andriy Scott MD [address] [place] [address] Non-seasonal allergic rhinitis due to fungal spores Social History Tobacco Use Types Packs/Day Years [...] encounter Miscellaneous Notes * Telephone Encounter - Emily Fu - 11/30/2024 2:29 PM EST TC from pt requesting medication refill. Medications needing refill : fluticasone (Flonase) 50 MCG/ACT nasal spray To be sent to: [facility] [place] [facility] documented in this encounter Plan of Treatment [...] as of this encounter Visit Diagnoses Diagnosis Non-seasonal allergic rhinitis due to fungal spores documented in this encounter Additional Health Concerns Assessment Noted Time PHQ-9 Depression Total Score: 0 02/22/20 23 1:22 PM EDT documented as of this encounter Care Teams Dimpling Machine Operator Relationship Specialty Start Date End Date Andriy Scott MD [address] [place] [address] PCP - General Internal Medicine 04/05/20 documented as of this encounter
--- OUTSIDE RECORDS SUMMARY | 2024-12-21 12:52 | XMS_ITS | Continuity of Care Document ---
Author Organization [employer], [facility] [employer] Address [address] [place] [address] Care Team Providers Care Refrigeration Houseman Name Role Phone HIM [facility] OTHER [facility] OTHER [phone] OPAL EZEQUIEL Primary Care Provider Assessment Encounter Date Assessment Date Assessment LastModified by Organization Details LastModified Time 11/29/2024 11/29/2024 I provided real -time medical direction via phone for this encounter and was available for additional phone-based assistance as needed. I have reviewed and agree with the Assessment and Plan as documented by the Plastic Press Operator. Patient given the opportunity to ask questions. Our service contacted for an assessment of: Viral URI symptoms As per above, patient with approximately several days of viral URI symptoms. Denies fever or chills. Denies chest pain, shortness of breath, dyspnea on exertion. Positive nasal congestion and dry cough. Positive sick contacts. She tested herself for COVID this morning in his positive. Per filter press tender on the scene, vital signs are stable and patient is afebrile. Lungs clear. Patient with temp earlier in the day but afebrile currently. No increased work of breathing and no distress. Impression: COVID-19 Plan: Continue with [id number] medications to control symptoms. Red flags discussed as to when to seek a higher level care. Patient did not want to take Paxlovid. She has multiple drug interactions. Use Tylenol as discussed to control fever. Allergies: Reviewed PCP f/u: We discussed the diagnostic uncertainty of home visits and the risk associated with this. In this case, the patient and I felt this to be an acceptable and reasonable amount of risk given the benefit of avoiding an ED visit. We discussed the need to seek care urgently/emergen tly in the setting of any new or worsening serious symptoms, particularly fever chills [email or web address] Not available 11/29/2024 16:58:08 Plan of Treatment Reminders Order Date Submit Date Provider Last Modified By Organization Details Last Modified Time Details Appointments None record ed. Lab None record ed. Referral None record ed. Procedures None record ed. Surgeries None record ed. Imaging None record ed. Medication Orders None record ed. Patient TargetsNo targets recorded. Patient InstructionsNo instructions recorded. Reason for Referral None Reported. Medical Equipment None Reported. Allergies Allergen ID Allergen Name Allergen Category Reaction Reaction Severity Criticality Documentation Date Start Date Code Code System Note Provider Name and Address Organization Details Recorded Time 1970 Product containin g penicilli n and antibioti c (product) medicatio n Not available Not available Not available 01/21/2023 73170 05 SNOMED Not Available [facility] - production 4 03:34:36 1971 amlodipin e medicatio n Not available Not available Not available 01/21/2023 10626 RxNorm Rhina Simons MD [address] [place] [address],[address], [place], [phone], [employer] 3 12:44:51 1973 Adacel medicatio n Not available Not available Not available 01/21/2023 95313 8 RxNorm Rhina Simons MD [address] [place] [address],[address], [place], [phone], [employer] 3 12:45:04 Medications Name Sig Start Date Stop Date Status Note LastModified by Organization Details LastModified Time medbox status USE DIRECTED active Not Available Not Available No t Available multivitamin tablet TAKE ONE TABLET EVERY MORNING active Not Available Not Available No t Available celecoxib 200 mg capsule TOME 1 C PSULA POR V A ORAL DOS VECES AL D A active Not Available Not Available No t Available metformin 500 mg tablet TAKE ONE TABLET IN THE MORNING AND EVENING active Not Available Not Available Not Available clindamycin HCl 300 mg capsule TAKE TWO CAPSULES ONE HOUR BEFORE PROCEDURE active Not Available Not Available No t Available cetirizine 10 mg tablet TAKE ONE TABLET EVERY NIGHT AT BEDTIME NEEDED active Not Available Not Available No t Available fluconazole 150 mg tablet TAKE ONE TABLET ONCE active Not Available Not Available Not Available ketotifen 0.025 % (0.035 %) eye drops PLACE ONE DROP IN THE AFFECTED EYE(S) TWICE DAILY NEEDED FOR ALLERGY active Not Available Not Available Not Available isosorbide mononitrate ER 30 mg tablet,exten ded release 24 hr TAKE ONE TABLET EVERY MORNING active Not Available Not Available No t Available valsartan 80 mg tablet TAKE ONE TABLET EVERY MORNING active Not Available Not Available No t Available chlorthalido ne 25 mg tablet TAKE ONE-HALF TABLET EVERY MORNING active Not Available Not Available No t Available aspirin 81 mg tablet,delay ed release TAKE ONE TABLET EVERY MORNING active Not Available Not Available No t Available spironolacto ne 25 mg tablet TAKE ONE-HALF TABLET EVERY MORNING active Not Available Not Available No t Available alprazolam 0.5 mg tablet TAKE ONE TABLET ONE-HALF HOUR BEFORE travel active Not Available Not Available No t Available famotidine 20 mg tablet TAKE ONE TABLET TWICE DAILY IN THE MORNING AND AT BEDTIME active Not Available Not Available N ot Available lidocaine 5 % topical patch APPLY 1 PATCH TO SKIN. LEAVE ON FOR 12 HOURS, THEN OFF FOR 12 HOURS DIRECTED. active Not Available Not Available No t Available nitroglyceri n 0.4 mg sublingual tablet DISSOLVE 1 TABLET UNDER THE TONGUE EVERY 5 MINUTES NEEDED FOR CHEST PAIN. DO NOT EXCEED A TOTAL OF 3 DOSES IN 15 MINUTES. active Not Available Not Available No t Available omeprazole 20 mg capsule,brian yed release TAKE ONE CAPSULE EVERY MORNING active Not Available Not Available No t Available doxazosin 4 mg tablet TAKE ONE TABLET EVERY MORNING active Not Available Not Available No t Available aspirin 81 mg chewable tablet CHEW ONE TABLET EVERY MORNING active Not Available Not Available No t Available montelukast 10 mg tablet TAKE ONE TABLET EVERY NIGHT AT BEDTIME active Not Available Not Available N ot Available nystatin 100,000 unit/gram topical powder APPLY TO THE AFFECTED AREA(S) TWICE DAILY active Not Available Not Available Not Available ketoconazole 2 % topical cream APPLY TO THE AFFECTED AREA(S) ONCE DAILY active Not Available Not Available N ot Available fluticasone propionate 50 mcg/actuatio n nasal spray,suspen jaz Administer 1 spray into each nostril in the morning. Shake gently. Before first use, prime pump. After use, clean tip and replace cap. active Not Available Not Available No t Available dicyclomine 10 mg capsule TAKE 1 CAPSULE BY MOUTH 3 TIMES DAILY NEEDED FOR ABDOMINAL CRAMPING active Not Available Not Available No t Available loratadine 10 mg tablet TOME ADIN TABLETA TODOS LOS D CUANDO SEA NECESARIO active Not Available Not Available No t Available Ventolin HFA 90 mcg/actuatio n aerosol inhaler INHALE 2 PUFFS BY MOUTH EVERY 4-6 HOURS NEEDED active Not Available Not Available No t Available valsartan 160 mg tablet TAKE 1 TABLET EVERY MORNING active Not Available Not Available No t Available cholecalcife rol (vitamin D3) 25 mcg (1,000 unit) capsule TOME 1 C PSULA POR V A ORAL TODOS LOS D active Not Available Not Available No t Available cyclobenzapr ine 5 mg tablet TAKE ONE TABLET BY MOUTH THREE TIMES DAILY active Not Available Not Available Not Available rosuvastatin 20 mg tablet TAKE ONE TABLET EVERY NIGHT AT BEDTIME active Not Available Not Available N ot Available rosuvastatin 40 mg tablet TAKE ONE TABLET AT BEDTIME active Not Available Not Available No t Available Flovent HFA 110 mcg/actuatio n aerosol inhaler INHALE 1 PUFF BY MOUTH TWICE DAILY. RINSE MOUTH AFTER USE active Not Available Not Available No t Available calcium 500 mg (as carbonate)-v it D3 10 mcg (400 unit) chewable tablet CHEW ONE TABLET EVERY MORNING active Not Available Not Available No t Available cholecalcife rol (vitamin D3) 25 mcg (1,000 unit) tablet TAKE ONE TABLET EVERY MORNING active Not Available Not Available No t Available ferrous gluconate 324 mg (38 mg iron) tablet TAKE ONE TABLET EVERY OTHER DAY IN THE MORNING active Not Available Not Available No t Available Calcium 500 With D 500 mg-10 mcg (400 unit) tablet TOME ADIN TABLETA TODOS LOS D active Not Available Not Available No t Available FreeStyle Lite Strips TEST BLOOD SUGAR TWICE DAILY active Not Available Not Available No t Available diclofenac 1 % topical gel APPLY TO AFFECTED AREA TOPICALLY TWICE DAILY NEEDED active Not Available Not Available No t Available cholecalcife rol (vitamin D3) 50 mcg (2,000 unit) capsule TAKE ONE CAPSULE EVERY MORNING active Not Available Not Available No t Available Senexon-S 8.6 mg-50 mg tablet TAKE 1 TABLET BY MOUTH 3 TIMES DAILY NEEDED FOR CONSTIPATIO N active Not Available Not Available No t Available ferrous gluconate 324 mg (37.5 mg iron) tablet TAKE ONE TABLET EVERY OTHER DAY IN THE MORNING active Not Available Not Available No t Available Jacquies Butt Paste 40 % topical ointment APPLY 1 GRAM TO BUTTOCKS 4 TIMES A DAY NEEDED. active Not Available Not Available N ot Available TRUEplus Lancets 33 gauge TEST BLOOD SUGAR TWICE DAILY active Not Available Not Available No t Available Trulicity 0.75 mg/0.5 mL subcutaneous pen injector INJECT ONE PEN (=0.75MG) SUBCUTANEOU SLY ONCE A WEEK DIRECTED active Not Available Not Available No t Available Arnuity Ellipta 100 mcg/actuatio n powder for inhalation INHALE ONE PUFF DAILY active Not Available Not Available N ot Available Repatha SureClick 140 mg/mL subcutaneous pen injector INJECT ONE ML SUBCUTANEOU SLY EVERY 14 DAYS active Not Available Not Available No t Available Daily-Leonarda (with folic acid) 400 mcg tablet TOME ADIN TABLETA TODOS LOS D active Not Available Not Available No t Available Vitals Date Recorded Respiratory rate Heart rate Body temperature Oxygen saturation Oxygen saturation in Arterial blood by Pulse oximetry Systolic blood pressure Diastolic blood pressure Provider Name and Address Organization Details Last Updated DateTime 5 95 /min 85 /min 101.4 [degF] 95 % 95 % 130 mm[Hg] 67 mm[Hg] Not Available [facility] - production 5 16:55:55 Social History None recorded. Functional Status None recorded. Mental Status None recorded. Family History Nothing Reported. Medical History No medical history recorded. Gynecological HistoryNo gynecological history recorded. Obstetrics History GPAL:G 0 P 0 0 0 0 Past Encounters Encounter ID Performer Location Encounter Start Date Encounter Closed Date Diagnosis/Indication Diagnosis SNOMED-CT Code Diagnosis ICD10 Code Diagnosis Note [id number] Betzy Jackson MD [facility] - [facility] [address] [place] [phone] 11/29/2024 16:55:51 11/30/2024 00:23:38 COVID-19 330653373 U07.1 Health Concerns Section Related Observation LastModified by Organization Detai ls LastModified Time None Recorded Concern Status LastModified by Organization Details LastModified Time None Recorded Payers Encounter Date Sequence Insurance Name Policy Number Policy Johnston Covered Member ID Johnston Member ID Guarantor Name 11/29/2024 1 [facility] - DOS ON OR AFTER 2023 - DUAL ELIGIBLE - CUSTODIAL OPTIONS AND ONE CARE (MEDICARE REPLACEMENT/ADV ANTAGE - HMO) Amee Hartman [id number] Amee Hartman Notes Date Note Type Note Provider Name and Address Organization Details Recorded Time 11/29/2024 text/html [facility] Nurse Triage Notes (Aren Sapp - RN): Reason For Request: Pt reporting since yesterday having body aches with a cough, noting feeling weak>notes coughing through the night with some congestion>chills> denies headache Patient Reports: Cough, fever greater than 2 days ; Lower extremity swelling; History of asthma, increased use of inhaler; Sputum increase ; Cough Denies: Increased work of breathing/labored ? with or without fever Unable to speak in full sentences without distress Discoloration of skin -cyanosis Needs to sleep sitting up, can? t catch breath Shortness of breath in setting of confusion COPD Shortness of breath with exertion Pain with inspiration Chief Complaints: Weakness, Cough PMH: Hypertension, Coronary Artery Disease, COPD/Asthma Comments: Animal Damage Control Agent verified the Pt.'s name//address and phone number. Education provided on the response time and the Pt. was advised to monitor reported s/s and seek emergency treatment if needed. Pt reports feeling unwell with a cough cold and congestion - Body aches - Weakness - Chills - Cough is non productive -SOB when coughing - S/S started x 4 days - Denies chest pain - Pt denies taking over the counter cold medication. Reports taking Tylenol for the body aches - Wellness visit requested .................. .................. .................. .................. .................. .................. .................. ............... Plastic Press Operator Note From Monico Avalos: This 79-year-old female with a history including but not limited to COPD, HTN, CHF, HLD requested a visit today to address four days of mild URIs symptoms. Patient reports mild dry cough, rhinorrhea, poor appetite and body aches. Patient states she's drinking well. Patient states she tested positive for COVID this morning. Patient denies any chest pain, shortness of breath, FLEMING, known fevers, nausea, vomiting, diarrhea. Patient not using any OTCs. Allergy to PCN.Presents awake and alert, appearing well in no acute distress and speaking full sentences. Her vital signs are reasonably stable and she has a temperature of 101.4. Nonfocal neurological exam. Normal gait. Lungs are clear throughout auscultation. Abdomen is soft, nontender, nondistended. No lower extremity edema.I thoroughly explained the pros and cons of Paxlovid and the patient denied. I provided education on several OTCs as well as recommended weight based Tylenol dosing. I recommend she continues to stay well hydrated and follow up with her primary care physician this week. I instructed her to present to the emergency department for any new or worsening severe symptoms such as chest pain, severe shortness of breath, high fever unrelieved by Tylenol, altered mental status. The patient interfamily were given the opportunity to ask questions and are agreeable to this plan. .................. .................. .................. .................. .................. .................. .................. ............... [facility] [place] Consulted: Betzy Jackson .................. .................. .................. .................. .................. .................. .................. ............... Disposition: Fulfilled Betzy Jackson MD [address] [facility],[address], [place], [address], [place] [employer]ADRIANE MAGANA 11/29/2024 16:58:19 OBGyn Episode No OBEpisode recorded.
--- OUTSIDE RECORDS SUMMARY | 2024-12-21 12:52 | XMS_ITS | Encounter Summary ---
Author Organization [employer] Address [address] [facility] [address] [place] [address] Care Team Providers Care Plate Corrector Name Role Phone Andriy Scott MD Primary Care Prov ider Encounter Details Date Type Department Care Team ([facility] Contact Info) Description 12/08/2024 8:30 AM EST Office Visit [facility] [address] [place], [place] [phone] Andriy Scott MD [address] [place] [address] Nasal sore (Primary Dx); Type 2 diabetes mellitus without complication, without long-term current use of insulin ([facility]) Social History Tobacco Use Types Packs/Day Years [...] AM EDT documented as of this encounter Last Filed Vital Signs Vital Sign Reading Time Taken Comments Blood Pressure 142/84 12/08/2024 8:51 AM EST Pulse 68 12/08/2024 8:51 AM EST Temperature 36.1 ??C (97 ??F) 12/08/2024 8:51 AM EST Respiratory Rate 16 12/08/2024 8:51 AM EST Oxygen Saturation - - Inhaled Oxygen Concentration - - Weight 71 kg (156 lb 9.6 oz) 12/08/2024 8:51 AM EST Height 142.2 cm (4' 8 ) 12/08/2024 8:51 AM EST Body Mass Index 35.11 12/08/2024 8:51 AM EST documented in this encounter Progress Notes * Andriy Hartman MD - 12/08/2024 8:30 AM EST Subjective Patient ID: Amee Hartman is a 79 y.o. female who presents for No chief complaint on file.. HPI Patient was seen on office for complains of nasal sores since 1 week ago Review of Systems Constitutional: Negative for chills, fatigue and fever. HENT: Negative for nosebleeds, postnasal drip, rhinorrhea, sinus pressure, sinus pain and sore throat. Respiratory: Negative for cough and shortness of breath. Cardiovascular: Negative for chest pain and palpitations. Objective Physical Exam Constitutional: Appearance: Normal appearance. HENT: Right Ear: Tympanic membrane, ear canal and external ear normal. There is no impacted cerumen. Left Ear: Tympanic membrane, ear canal and external ear normal. There is no impacted cerumen. Nose: No congestion. Comments: Inner nasal sores Cardiovascular: Rate and Rhythm: Normal rate. Heart sounds: No murmur heard. Pulmonary: Effort: Pulmonary effort is normal. No respiratory distress. Breath sounds: Normal breath sounds. No stridor. No wheezing or rhonchi. Neurological: General: No focal deficit present. Mental Status: She is alert and oriented to person, place, and time. Psychiatric: Mood and Affect: Mood normal. Behavior: Behavior normal. Assessment/Plan Problem List Items Addressed This Visit Diabetes mellitus ([facility]) Relevant Orders POCT Glucose (Completed) Nasal sore - Primary Patient recently passed though covid infection, will prescribe saline nasal spray and mupirocin, call back if not improving documented in this encounter Miscellaneous Notes * Assessment & Plan Note - Andriy Hartman MD - 12/08/2024 9:09 AM ESTAssociated Problem(s): Nasal sore Patient recently passed though covid infection, will prescribe saline nasal spray and mupirocin, call back if not improving documented in this encounter Plan of Treatment [...] of 01/20/24 documented as of this encounter Procedures Procedure Name Priority Date/Time Associated Diagnosis Comments POCT GLUCOSE Routine 12/08/2024 8:54 AM EST Type 2 diabetes mellitus without complication, without long-term current use of insulin ([facility]) documented in this encounter Results * POCT Glucose (12/08/2024 8:54 AM EST) Glucose Blood, POC 121 60 - 200 mg/dL QC Media Lot # [id number] Lot# Expiration Date Blood Capillary blood specimen / Unknown 12/08/2024 8:54 AM EST Andriy Hartman MD POINT OF CARE TEST ENTER/EDIT ORDERABLES Final Result documented in this encounter Visit Diagnoses Diagnosis Nasal sore- Primary Type 2 diabetes mellitus without complication, without long-term current use of insulin ([facility]) documented in this encounter Additional Health Concerns Assessment Noted Time PHQ-9 Depression Total Score: 0 02/22/20 23 1:22 PM EDT documented as of this encounter Care Teams Plate Corrector Relationship Specialty Start Date End Date Andriy Scott MD [address] [place] [address] PCP - General Internal Medicine 04/05/20 documented as of this encounter
--- OUTSIDE RECORDS SUMMARY | 2024-12-21 12:52 | XMS_ITS | Encounter Summary ---
Author Organization [employer] Address [address] [facility] [address] [place] [address] Care Team Providers Care Railroad Passenger Agent Name Role Phone Andriy Scott MD Primary Care Prov ider Encounter Details Date Type Department Care Team ([facility] st Contact Info) Description 03/05/2024 Orders Only [facility] [address] [place], [place] [phone] Andriy Scott MD [address] [place] [address] Type 2 diabetes mellitus with stage 3a chronic kidney disease, without long-term current use of insulin ([facility]) Social History Tobacco Use Types Packs/Day Years [...] disease, without long-term current use of insulin ([facility]) documented in this encounter Additional Health Concerns Assessment Noted Time PHQ-9 Depression Total Score: 0 02/22/20 23 1:22 PM EDT documented as of this encounter Care Teams Railroad Passenger Agent Relationship Specialty Start Date End Date Andriy Scott MD [address] [place] [address] PCP - General Internal Medicine 04/05/20 documented as of this encounter
--- OUTSIDE RECORDS SUMMARY | 2024-12-21 12:52 | XMS_ITS | Clinical Summary ---
Author Organization [address] [place] [address] [place] [phone] Phone Care Team Providers Care Fashion Model Name Role Phone Andriy Scott Primary Care Provide r Allergies Active Allergy Reactions Criticality Noted Date Comments Amlodipine Pain Medium 08/03/2015 Abdominal pain Other reaction(s): abdominal pain , Abdominal pain' ? feeling weak/tired Diph,Pertuss(Acel),Tet Vac(Pf) Unknown 12/15/2024 Diphtheria,Pertussis (Acellular),Tetanus Vaccine 06/19/2023 Lisinopril Medium 05/17/2015 Feeling weak/tired Penicillins Unknown,Rash,Swellin g Low 05/13/2015 Medications Medication Sig Dispensed Refills Start Date End Date Status evolocumab (Repatha SureClick) 140 mg/mL pen injector injection INJECT 1ml SUBCUTANEOUSLY EVERY 14 DAYS 01/16/2024 Active omeprazole (PriLOSEC) [address] capsule Take 1 capsule (20 mg total) by mouth 1 (one) time each day. Active dulaglutide (Trulicity) 0.75 mg/0.5 mL pen injector injection Inject into the skin. Active albuterol HFA (PROAIR HFA ; PROVENTIL HFA ; VENTOLIN HFA) 90 mcg/actuation inhaler Inhale 2 puffs by mouth every 4 (four) hours if needed. Active multivit with min-folic acid (Adult Multivitamin Gummies) 200 mcg tablet,chewable Chew 1 tablet 1 (one) time each day. Active calcium carbonate-vitamin D3 600 mg-12.5 mcg (500 unit) capsule Take 1 tablet by mouth 1 (one) time each day. Active montelukast (SINGULAIR) 10 mg tablet Take 1 tablet (10 mg total) by mouth at bedtime. Active spironolactone (ALDACTONE) 25 mg tablet Take 0.5 Tablets by mouth daily. Active aspirin 81 mg EC tablet 81 mg. 08/03/2015 Active doxazosin (CARDURA) 4 mg tablet 4 mg. 08/03/2015 Active fluticasone HFA (FLOVENT HFA) 110 mcg/actuation inhaler Inhale 1 puff by mouth 2 (two) times a day. 08/03/2015 Active loratadine (CLARITIN) 10 mg tablet 10 mg. 11/30/2015 Active valsartan (DIOVAN) 40 mg tablet Take 1 tablet (40 mg total) by mouth 1 (one) time each day. Active ferrous gluconate (FERGON) 324 mg (37.5 mg iron) tablet Take 1 tablet (324 mg total) by mouth 1 (one) time each day. 11/24/2024 Active nitroglycerin (NITROSTAT) 0.4 mg SL tabletIndications :Coronary artery disease involving [place] coronary artery of [place] heart without angina pectoris Place 1 tablet (0.4 mg total) under the tongue every 5 (five) minutes if needed for chest pain. 26 tablet 3 12/15/2024 Active nitroglycerin (NITROSTAT) 0.[address] 0.4 mg under the tongue every 5 minutes as needed. 5 Discontinu ed(Reorder ) Active Problems Problem Noted Date Diagnosed Date Class 3 severe obesity due t o excess calories with serious comorbidity and body mass index (BMI) of 40.0 to 44.9 in adult 12/15/2024 Assessment & Plan (12/15/2024 4:02 PM EST): Patient is obese. Approaches towards weight loss are discussed, including burning more calories than one takes in by portion control and regular exercise with an emphasis on duration rather than intensity. Peripheral edema 09/01/2024 Fatigue 09/01/2024 Dizziness 09/01/2024 Overview (09/01/2024): Dizziness and lightheadedness Carotid stenosis, bilateral 09/01/2024 Chest pain 11/26/2023 Dyslipidemia 11/26/2023 Stable angina 11/26/2023 PAD (peripheral artery disease) 03/20/2021 Overview (09/01/2024): Last Assessment & Plan: Follows with Dr. Bhatia Assessment & Plan (12/15/2024 4:02 PM EST): The patient offers no symptoms; no new concerning findings on exam today. We will continue to monitor this on serial imaging. Continue with efforts towards proper blood pressure and lipid control. Coronary artery disease invo lving [place] heart without angina pectoris 12/15/2020 Overview (09/01/2024): Last Assessment & Plan: No ischemic symptoms currently, troponin was negative during hospitalization. There was mention of completing an echocardiogram outpatient. I did order this. Assessment & Plan (12/15/2024 4:02 PM EST): The patient remains active within her current functional capacity without any symptoms causing concern for ischemia. We discussed risk reduction through lifestyle changes including healthy diet, routine exercise and weight management. I have reviewed with the patient the importance of a heart healthy lifestyle which includes eating a low-fat low-salt diet, getting regular exercise, maintaining a healthy weight, not smoking, and following up with routine medical care. We will not make any changes to her cardioprotective medical therapy; continue Repatha and daily ASA. The patient was advised to seek emergent medical attention by calling 911 if they were to develop severe dyspnea, chest pain that did not resolve with rest or nitroglycerin, or if they were to faint. Orders: nitroglycerin (NITROSTAT) 0.4 mg SL tablet; Place 1 tablet (0.4 mg total) under the tongue every 5 (five) minutes if needed for chest pain. Primary hypertension 12/15/2020 Overview (09/01/2024): Last Assessment & Plan: Controlled, continue current regimen. Assessment & Plan (12/15/2024 4:02 PM EST): Blood pressure is well-controlled on current medical therapy; continue spironolactone. Will obtain metabolic panel and magnesium level today. Orders: Magnesium; Future Basic metabolic panel; Future Mixed hyperlipidemia 11/26/2018 Overview (09/01/2024): Last Assessment & Plan: Last lipid panel 06/14 total cholesterol 96, HDL 50, LDL 23. Continue statin and injectable. Assessment & Plan (12/15/2024 4:02 PM EST): The patient's most recent lipid panel was completed 01/10/2024 revealing an LDL of 63. LDL goal for this patient was a history of coronary artery disease is less than 70. We will update this today and readdress this as needed. Continue Repatha. Orders: Lipid panel with reflex to direct LDL; Future Diverticulosis 04/29/2018 Chronic gastritis 02/09/2016 Internal hemorrhoids 09/05/2015 Encounters Date Type Department Care Team Description 12/18/2024 10:12 AM EST - 12/18/2024 11:59 PM EST Hospital Encounter [facility] Scan [address] [place] [address] Diverticulosis of intestine, part unspecified, without perforation or abscess without bleeding; Left lower quadrant pain Discharge Disposition: Home or Self Care 12/15/2024 10:40 AM EST Office Visit [facility] [address] [facility] [address] [place] [phone] Mary Jett NP Coronary artery disease involving [place] coronary artery of [place] heart without angina pectoris (Primary Dx); Mixed hyperlipidemia; Primary hypertension; Class 3 severe obesity due to excess calories with serious comorbidity and body mass index (BMI) of 40.0 to 44.9 in adult (CMS/[facility]); PAD (peripheral artery disease) ([facility]) 11/09/2024 Telephone [facility] - [place] [facility] 175 [facility] [address] [place] [address] abd and pelvis ([facility] auth # [id number] valid 10/30/24-02/28/25 [facility] - order sent to [facility] they will call pt to schedule appt) 10/13/2024 10:00 AM EST Ancillary Procedure [facility] [address] [place] [address] Primary hypertension; Fatigue, unspecified type; Coronary artery disease involving [place] heart without angina pectoris, unspecified vessel or lesion type 10/02/2024 Telephone [facility] [address] [place] [address] Mary Jett NP Testing (Auth CTA Head/Neck) 10/01/2024 Telephone [facility] - [place] [address] [place] [address] Shannon Ceron PA PRIOR AUTHORIZATION (CT-scan of abdomen and pelvis) from Last 3 Months Surgical History Surgery Date Site/Laterality Comments HYSTERECTOMY PROCEDURE: HISTORICAL HYSTERECTOMY OTHER SURGICAL HISTORY PROCEDURE: HISTORY OTHER; COMMENT: oophorectomy, TUBAL LIGATION PROCEDURE: HISTORICAL TUBAL LIGATION Medical History Medical History Date Comments Chronic gastritis 02/09/2016 DX:Chronic gas tritis Diverticulosis 04/29/2018 DX:Diverticulosi s Hyperlipidemia 11/26/2018 DX:Hyperlipidemi a Internal hemorrhoids 09/05/2015 DX:Internal hemorrhoids Chest pain DX:Chest pain Kidney disease DX:Kidney diseas e Family History Medical History Relation Name Comments Heart failure Brother Heart failure Father Hypertension Mother Heart failure Sister Relation Name Status Comments Brother Alive Father Mother Sister Alive Social History Tobacco Use Types Packs/Day Years Used Date Smoking Tobacco: Never Smokeless Tobacco: Never Alcohol Use Standard Drinks/Week Comments Never 0 (1 standard drink = 0.6 oz pur e alcohol) Sex and Gender Information Value Date Recorded Sex Assigned at Female 11/10/2024 2:03 PM EST Gender Identity Female 11/10/2024 2:03 PM EST Sexual Orientation Straight 11/23/2024 3: 36 PM EST Job Start Date Occupation Industry Not on file Not on file Not on file Obstetrics History Last Filed Vital Signs Vital Sign Reading Time Taken Comments Blood Pressure 114/82 12/15/2024 10:20 AM EST Pulse 74 12/15/2024 10:20 AM EST Temperature - - Respiratory Rate - - Oxygen Saturation 94% 12/15/2024 10:20 AM EST Inhaled Oxygen Concentration - - Weight 97.1 kg (214 lb) 12/15/2024 10:20 AM EST Height 152.4 cm (5') 12/15/2024 10:20 AM EST Body Mass Index 41.79 12/15/2024 10:20 AM EST Plan of Treatment Upcoming Encounters Date Type Department Care Team (Late st Contact Info) Description 06/15/2025 1:00 PM EDT Office Visit [facility] [address] [phone] Santi Becker MD [address] [address] Health Maintenance Due Date Last Done Comments Pneumococcal Vaccine: 65+ Years (1 of 2 - PCV) 1950 Diabetes: Annual Foot Exam 1954 Diabetes: Annual Retina Eye Exam 1954 RSV Immunization Patients 60+ Years Old (1 - 1-dose 75+ series) 2019 Diabetes: Annual GFR (Glomerular Filtration Rate) 03/17/2020 03/17/2019, 09/07/2015 Falls Risk Assessment 11/03/2022 Medicare Annual Wellness Visit 11/03/2022 Osteoporosis Screening (Bone Density Screening) 11/03/2022 Social Influencers of Health Screening 11/03/2022 Hypertension/CHF/CAD Annual BMP Blood Test 11/04/2022 03/17/2019, 09/07/2015 Depression Screening 02/22/2024 02/21/2023 COVID-19 Vaccine ( season) 2024 10/30/2021, 04/10/2021, 03/20/2021 Influenza Vaccine (#1) 2024 Diabetes: Annual Urine Albumin-Creatinine Ratio (uACR) 10/13/2024 03/27/2023 Diabetes: Blood Sugar Control Test (HGBA1C) 03/15/2025 09/14/2024, 03/30/2024, 06/19/2023, Additional history exists Cholesterol Screening (Lipid Panel) 01/10/2029 01/10/2024, 09/07/2015 DTaP,Tdap,and Td Vaccines (2 - Td or Tdap) 01/25/2031 [...] on patient's age to complete this topic MMR Vaccines Aged Out No longer eligi ble based on patient's age to complete this topic Meningococcal ACWY Vaccine Aged Out N o longer eligible based on patient's age to complete this topic RSV Immunization Patients Under 20 months Aged Out No longer eligible based on patient's age to complete this topic Varicella Vaccines Aged Out No longer eligible based on patient's age to complete this topic Procedures Procedure Name Priority Date/Time Associated Diagnosis Comments TRANSTHORACIC ECHOCARDIOGRAM (TTE) COMPLETE Routine 10/13/2024 10:39 AM EST Primary hypertension Fatigue, unspecified type Coronary artery disease involving [place] heart without angina pectoris, unspecified vessel or lesion type ANNUAL BMP BLOOD TEST Routine 03/17/2019 from Last 3 Months or Most Recently Relevant to Health Maintenance Results * (ABNORMAL) TRANSTHORACIC ECHOCARDIOGRAM (TTE) COMPLETE (10/13/2024 10:39 AM EST) Left Atrium Minor [place] 5.0 cm CV PACS Left Atrium Major [place] 5.6 cm CV PACS LA Area Sys (A2C) 17 cm2 CV PACS LA Area Sys (A4C) 19 cm2 CV PACS LA Volume (BP) 51 mL CV PACS RA Area 16.1 cm2 CV PACS RA 2D Volume 44 mL CV PACS AV Mean Gradient 5 mmHg CV PACS Ao VTI 35.1 cm CV PACS AV Peak [place] 1.6 m/s CV PACS AV Peak Gradient 10 mmHg CV PACS AV Area Continuity Equation 1.9 cm2 CV PACS AV Area Peak Velocity 2.1 cm2 CV PACS Aortic Sinus Valsalva 3.3 cm CV PACS Ascending Aorta 3.4 cm CV PACS IVC Proximal 1.3 cm CV PACS IVSD 1.1(A) 0.6 - 0.9 cm CV PACS LVIDD 4.8 3.8 - 5.2 cm CV PACS LVIDS 2.9 2.2 - 3.5 cm CV PACS LVOT Diameter 1.9 cm CV PACS LVOT Mean Grad 2 mmHg CV PACS LVOT Peak VTI 23.6 cm CV PACS LVOT Mean [place] 0.7 m/s CV PACS LVOT Peak [place] 1.1 m/s CV PACS LVOT Peak Gradient 5 mmHg CV PACS LVPWD 1.1(A) 0.6 - 0.9 cm CV PACS MV E' Tissue Velocity Lateral 8 cm/s CV PACS MV E' Tissue Velocity Septal 8 cm/s CV PACS LVOT Area 2.8 cm2 CV PACS LVOT Stroke Volume 67 mL CV PACS E Wave Deceleration Time 377(A) 119 - 242 ms CV PACS MV Peak A [place] 0.85 m/s CV PACS MV Peak E [place] 0.57 m/s CV PACS RV Diastolic Basal Dimension 3.5 2.5 - 4.1 cm CV PACS RV S' 11 cm/s CV PACS TAPSE 20 mm CV PACS E/E' Ratio Septal 7 CV PACS E/E' Ratio Averaged 7 CV PACS Relative Wall Thickness ratio 0.46 CV PACS LVOT:AV VTI Index 0.67 CV PACS FS 40 % CV PACS LV Mass 2D 194 g CV PACS LVOT flow 198 mL/s CV PACS AV Velocity Ratio 0.69 CV PACS E/A Ratio 0.7 CV PACS E/E' Ratio Lateral 7 CV PACS BSA 1.72 m2 CV PACS LA Volume Index (BP) 31 mL/m2 CV PACS LVIDD Index 2.89 cm/m2 CV PACS LVIDS Index 1.75 cm/m2 CV PACS LV Mass Index 2D 117(A) 44 - 88 g/m2 CV PACS LVOT Stroke Index 40 mL/m2 CV PACS RA 2D Volume Index 27 15 - 27 mL/m2 CV PACS GÓMEZ Index (VTI) 1.15 cm2/m2 CV PACS GÓMEZ Index (Pk [place]) 1.27 cm2/m2 CV PACS Ascending Aorta Index 2.05 cm/m2 CV PACS Est. RA Pressure 3 mmHg CV PACS Anatomical Region Laterality Modality Ultrasound Narrative 10/13/2024 12:15 PM EST ?Left ventricle cavity size is normal. Left ventricular systolic function is in the normal range with an ejection fraction of 60-65%. ?No regional LV wall motion abnormalities noted. ?Left ventricle mild hypertrophy. ?Right ventricle cavity is normal. Right ventricular systolic function is normal. ?Aortic valve leaflets are mildly calcified.No stenosis or insufficiency. Left Ventricle Left ventricle cavity size is normal. There is mild hypertrophy. Systolic function is normal with an ejection fraction of 60-65%. There are no regional LV wall motion abnormalities. There is no diastolic dysfunction. Right Ventricle Right ventricle cavity appears normal. Systolic function is normal. Left Atrium Left atrium cavity size is normal. Right Atrium Right atrium cavity is normal. IVC/SVC RA pressures is estimated to be 3 mmHg (IVC diameter <21 mm and decreases >50% during inspiration). Mitral Valve The leaflets are mildly thickened. There is mild annular calcification. There is trace regurgitation. There is no evidence of mitral valve stenosis. Tricuspid Valve Tricuspid valve structure is normal. There is trace regurgitation. Cannot assess RVSP. Aortic Valve The aortic valve was not well visualized. The leaflets are mildly calcified. There is no regurgitation or stenosis. Pulmonic Valve The pulmonic valve was not well visualized. There is trace pulmonic valve regurgitation. Ascending Aorta The aorta appears normal in size. Pericardium Pericardium appears normal. Study Details Overall the study quality was adequate. Wall Scoring Baseline Score Index: 1.00 The left ventricular wall motion is normal. Mary Jett HEEL VARNISHER CV ECHO PROCE LYRIC * Annual BMP Blood Test (03/17/2019) Annual BMP Blood Test Abstracted Historical Provider MD DEIDRA Doran from Last 3 Months or Most Recently Relevant to Health Maintenance Care Teams Fashion Model Relationship Specialty Start Date End Date Andriy Scott [address] [place], [place] PCP - General Internal Medicine 12/15/20
--- OUTSIDE RECORDS SUMMARY | 2024-12-21 12:52 | XMS_ITS | Encounter Summary ---
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
--- OUTSIDE RECORDS SUMMARY | 2024-12-21 12:52 | XMS_ITS | Encounter Summary ---
Author Organization [facility] Address [address] [facility] [address] [place] [address] Phone Care Team Providers Care Service Associate Name Role Phone Andriy Winkler Primary Care Provider [phone] Encounter Details Date Type Department Care Team (Late st Contact Info) Description 06/30/2024 Office Communication [facility] [address] [facility] [address] [place] [address] Tyra Escobedo ARNP [address] [address] Social History Tobacco Use Types Packs/Day Years Used Date Smoking Tobacco: Never Smokeless Tobacco: Never Alcohol Use Standard Drinks/Week Comments No 0 (1 standard drink = 0.6 oz pur e alcohol) Comments Unknown Sex and Gender Information Value Date Recorded Sex Assigned at Not on file Legal Sex Female 5:24 PM EST Gender Identity Not on file Sexual Orientation Not on file documented as of this encounter Plan of Treatment Upcoming Encounters Date Type Department Care Team (Late st Contact Info) Description 02/23/2025 10:30 AM EDT Office Visit [facility] [address] [facility] [address] [place] [address] Tyra Escobedo ARNP [address] [address] documented as of this encounter Visit Diagnoses Not on filedocumented in this encounter Care Teams Service Associate Relationship Specialty Start Date End Date Andriy Winkler PCP - General Internal Medicine 03/08/21 documented as of this encounter
--- OUTSIDE RECORDS SUMMARY | 2024-12-21 12:52 | XMS_ITS | Encounter Summary ---
Author Organization [facility] Address [address] [facility] 7t [place] [address] Care Team Providers Care Junior Project Manager Name Role Phone Andriy Scott MD Primary Care Prov ider Encounter Details Date Type Department Care Team (Latest Contact Info) Description 06/15/2019 Abstract [facility] Dental, Provider, DDS Social History Tobacco Use Types Packs/Day Years Used Date Smoking Tobacco: Never Assessed Comments Unknown Sex and Gender Information Value [...] on filedocumented in this encounter Care Teams Junior Project Manager Relationship Specialty Start Date End Date Andriy Scott MD [address] [place] [address] PCP - General Internal Medicine 04/05/20 documented as of this encounter
--- OUTSIDE RECORDS SUMMARY | 2024-12-21 12:53 | XMS_ITS | Encounter Summary ---
Author Organization [employer] Address [address] [facility] 7t [place] [address] Care Team Providers Care Sales Marketing Director Name Role Phone Andriy Scott MD Primary Care Prov ider Encounter Details Date Type Department Care Team ([facility] st Contact Info) Description 11/07/2023 Abstract [facility] [address] [place] [address] Elder Akers DDS [address] [place] [address] Social History Tobacco Use Types Packs/Day Years [...] documented as of this encounter Care Teams Sales Marketing Director Relationship Specialty Start Date End Date Andriy Scott MD [address] [place] [id number] PCP - General Internal Medicine 04/05/20 documented as of this encounter
--- OUTSIDE RECORDS SUMMARY | 2024-12-21 12:53 | XMS_ITS | Encounter Summary ---
Author Organization [employer] Address [address] [facility] 7t [place] [address] Care Team Providers Care Felt Carbonizer Name Role Phone Andriy Scott MD Primary Care Prov ider Reason for Visit * Reason Comments Med Refill Encounter Details Date Type Department Care Team ([facility] st Contact Info) Description 02/10/2024 Refill [facility] MED & PEDS [address] [place], [place] [phone] Andriy Scott MD 505 [place] [address] Mixed hyperlipidemia Social History Tobacco Use Types Packs/Day Years [...] as of this encounter Visit Diagnoses Diagnosis Mixed hyperlipidemia documented in this encounter Additional Health Concerns Assessment Noted Time PHQ-9 Depression Total Score: 0 02/22/20 23 1:22 PM EDT documented as of this encounter Care Teams Felt Carbonizer Relationship Specialty Start Date End Date Andriy Scott MD [address] [place] [id number] PCP - General Internal Medicine 04/05/20 documented as of this encounter
--- OUTSIDE RECORDS SUMMARY | 2024-12-21 12:53 | XMS_ITS | Encounter Summary ---
Author Organization [facility] Address [address] [facility] 7t [place] [address] Care Team Providers Care Manager Star Name Role Phone Andriy Scott MD Primary Care Prov ider Encounter Details Date Type Department Care Team (Latest Contact Info) Description 01/03/2021 Abstract [facility] Dental, Provider, DDS Social [...] on filedocumented in this encounter Care Teams Manager Star Relationship Specialty Start Date End Date Andriy Scott MD [address] [place] [address] PCP - General Internal Medicine 04/05/20 documented as of this encounter
--- OUTSIDE RECORDS SUMMARY | 2024-12-21 12:53 | XMS_ITS | Encounter Summary ---
Author Organization [employer] Address [address] [facility] 7t [place] [address] Care Team Providers Care History Instructor Name Role Phone Andriy Scott MD Primary Care Prov ider Encounter Details Date Type Department Care Team ([facility] st Contact Info) Description 11/23/[address] [facility] CHC MED & PEDS [address] [place], [place] [phone] Andriy Scott MD [address] [place] [address] Social History Tobacco Use Types Packs/Day Years [...] on filedocumented in this encounter Care Teams History Instructor Relationship Specialty Start Date End Date Andriy Scott MD [address] [place] [address] PCP - General Internal Medicine 04/05/20 documented as of this encounter
--- OUTSIDE RECORDS SUMMARY | 2024-12-21 12:53 | XMS_ITS | Encounter Summary ---
Author Organization [facility] Address [address] [place] [address] Care Team Providers Care Tower Erector Helper Name Role Phone Andriy Scott Primary Care Provide r Reason for Referral * Imaging (Routine) - Authorized Specialty Diagnoses / Procedures Referred By Contac t Referred To Contact Radiology Diagnoses Diverticulosis of intestine, part unspecified, without perforation or abscess without bleeding Left lower quadrant pain Procedures CT Abdomen Pelvis wo Contrast Shannon Ceron PA [address] [address] [facility] [address] [place] [address] Referral ID Status Reason Start Date Expiration Date V isits Requested Visits Authorized [id number] Authorized 10/30/2024 02/28/2025 1 1 Reason for Visit * Imaging (Routine) - Authorized Specialty Diagnoses / Procedures Referred By Contac t Referred To Contact Radiology Diagnoses Diverticulosis of intestine, part unspecified, without perforation or abscess without bleeding Left lower quadrant pain Procedures CT Abdomen Pelvis wo Contrast Shannon Ceron PA [address] [address] [facility] [address] [place] [address] Referral ID Status Reason Start Date Expiration Date V isits Requested Visits Authorized [id number] Authorized 10/30/2024 02/28/2025 1 1 Encounter Details Date Type Department Care Team (Latest Contact Info) Description 12/18/2024 10:12 AM EST - 12/18/2024 11:59 PM EST Hospital Encounter [facility] CT Scan [address] [place] [address] Diverticulosis of intestine, part unspecified, without perforation or abscess without bleeding; Left lower quadrant pain Discharge Disposition: Home or Self Care Social History Tobacco Use Types Packs/Day Years [...] file Not on file Not on file documented as of this encounter Medications at Time of Discharge Medication Sig Dispensed Refills Start Date End Date albuterol HFA (PROAIR HFA ; PROVENTIL HFA ; VENTOLIN HFA) 90 mcg/actuation inhaler Inhale 2 puffs by mouth every 4 (four) hours if needed. aspirin 81 mg EC tablet 81 mg. 08/03/2015 calcium carbonate-vitamin D3 600 mg-12.5 mcg (500 unit) capsule Take 1 tablet by mouth 1 (one) time each day. doxazosin (CARDURA) 4 mg tablet 4 mg. 08/03/2015 dulaglutide (Trulicity) 0.75 mg/0.5 mL pen injector injection Inject into the skin. evolocumab (Repatha SureClick) 140 mg/mL pen injector injection INJECT 1ml SUBCUTANEOUSLY EVERY 14 DAYS 01/16/2024 ferrous gluconate (FERGON) 324 mg (37.5 mg iron) tablet Take 1 tablet (324 mg total) by mouth 1 (one) time each day. 11/24/2024 fluticasone HFA (FLOVENT HFA) 110 mcg/actuation inhaler Inhale 1 puff by mouth 2 (two) times a day. 08/03/2015 loratadine (CLARITIN) 10 mg tablet 10 mg. 11/30/2015 montelukast (SINGULAIR) 10 mg tablet Take 1 tablet (10 mg total) by mouth at bedtime. multivit with min-folic acid (Adult Multivitamin Gummies) 200 mcg tablet,chewable Chew 1 tablet 1 (one) time each day. nitroglycerin (NITROSTAT) 0.4 mg SL tabletIndications:Piedad nary artery disease involving [place] coronary artery of [place] heart without angina pectoris Place 1 tablet (0.4 mg total) under the tongue every 5 (five) minutes if needed for chest pain. 26 tablet 3 12/15/2024 omeprazole (PriLOSEC) [address] capsule Take 1 capsule (20 mg total) by mouth 1 (one) time each day. spironolactone (ALDACTONE) 25 mg tablet Take 0.5 Tablets by mouth daily. valsartan (DIOVAN) 40 mg tablet Take 1 tablet (40 mg total) by mouth 1 (one) time each day. documented as of this encounter Discharge Disposition Disposition Code Departure Means Destination Home or Self Care documented in this encounter Plan of Treatment Upcoming Encounters Date Type Department Care Team (Late st Contact Info) Description 06/15/2025 1:00 PM EDT Office Visit [facility] [address] [address] Santi Becker MD [address] [address] Pending Results Name Type Priority Associated Diagnoses Date /Time CT Abdomen Pelvis wo Contrast Imaging Routine Diverticulosis of intestine, part unspecified, without perforation or abscess without bleeding Left lower quadrant pain 12/18/2024 10:23 AM EST Scheduled Orders Name Type Priority Associated Diagnoses Orde r Schedule CT Abdomen Pelvis wo Contrast Imaging Routine Diverticulosis of intestine, part unspecified, without perforation or abscess without bleeding Left lower quadrant pain Once for 1 Occurrences starting 12/18/2024 until 12/18/2024 documented as of this encounter Visit Diagnoses Diagnosis Diverticulosis of intestine, part unspecified, without perforation or abscess without bleeding Left lower quadrant pain Abdominal pain, left lower quadrant documented in this encounter Administered Medications Inactive Administered Medications - up to 3 most recent administrations Medication Order MAR Action Action Date Dose Rate Site barium sulfate (READI-CAT 2) 2 % (w/v) suspension 900 mL 900 mL, oral, Once in imaging, Starting on Sat12/18/24 at 1020, For 1 dose Given 12/18/2024 10:20 AM EST 900 mL documented in this encounter Orders Medications Ordered That Diego ht Not Have Been Administered Count Last Ordered Date First Ordered Date barium sulfate (READI-CAT 2) 2 % (w/v) suspension 900 mL 1 12/18/2024 documented in this encounter Care Teams Tower Erector Helper Relationship Specialty Start Date End Date Andriy Scott [address] [place], [place] PCP - General Internal Medicine 12/15/20 documented as of this encounter
--- OUTSIDE RECORDS SUMMARY | 2024-12-21 12:53 | XMS_ITS | Continuity of Care Document ---
Author Organization [employer] [facility] Address [address] [place] [address] Care Team Providers Care Grain Cleaner Name Role Phone [facility] OTHER [facility] OTHER [phone] JOSEPHEZEQUIEL GONZALEZ Primary Care Provider Assessment No assessment recorded. Plan of Treatment Reminders Order Date Submit [...] Name and Address Organization Details Recorded Time 1971 Product containin g penicilli n and antibioti c (product) medicatio n Not available Not available Not available 01/21/2023 40770 05 SNOMED Not Available [facility] - production 4 03:34:36 1972 amlodipin e medicatio n Not available Not available Not available 01/21/2023 76737 RxNorm Rhina Simons MD [address] [place] [address],[address], [place], [address] [facility] [employer] 3 12:44:51 1973 Adacel medicatio n Not available Not available Not available 01/21/2023 54029 8 RxNorm Rhina Simons MD [address] [place] [address],[address], [place], [address] [facility] [employer] 3 12:45:04 Medications Name Sig Start Date [...] loratadine 10 mg tablet TOME ADIN TABLETA TODO LOS D CUANDO SEA NECESARIO active Not [...] 1 C PSULA POR V A ORAL TO D active Not Available Not Available No [...] mcg (400 unit) tablet TOME ADIN TABLETA TOS LOS D active Not Available Not Available [...] Not Available Not Available No t Available [employer] Butt Paste 40 % topical ointment APPLY [...] Recorded Respiratory rate Heart rate Body temperature Body weight Oxygen saturation Oxygen saturation in Arterial blood by Pulse oximetry Systolic blood pressure Diastolic blood pressure Provider Name and Address Organization Details Last Updated DateTime 5 16 /min 84 /min 97.8 [degF] 20552.7 2 g 99 % 99 % 138 mm[Hg] 72 mm[Hg] Not Available [employer] - production 5 20:47:01 Social History None recorded. Functional Status None recorded. Mental Status None recorded. Family History Nothing Reported. Medical History No medical history recorded. Gynecological HistoryNo gynecological history recorded. Obstetrics History GPAL:G 0 P 0 0 0 0 Past Encounters Encounter ID Performer Location Encounter Start Date Encounter Closed Date Diagnosis/Indication Diagnosis SNOMED-CT Code Diagnosis ICD10 Code Diagnosis Note [id number] Betzy Jackson MD Main - [facility] [address] [place] [phone] 11/29/2024 16:55:51 11/30/2024 00:23:38 COVID-19 [id number] U07.1 [id number] JOSS LIRA MD Main - [facility] [address] [place] [address] 12/03/2024 20:46:57 12/04/2024 12:55:39 Worried well [id number] Z71.1 Evaluation in the field was performed by my thread spooler colleague, as noted above, I provided real-time direction and supervisio n for this visit. The evaluation revealed an 79-year-ol d female with a history of CAD, HTN, and COPD, who was recently diagnosed with COVID infection (seen by us on 11/29) and presents with complaints of low BP readings at home. The patient reports that her BP machine shows SBP ranging from 98-146. She denies headache, dizziness, nausea, vomiting, diarrhea, chest pain , shortness of breath, abdominal pain, or blurry vision. She is tolerating her diet well. She takes Valsartan 40 mg and Spironolac tone 25 mg daily. The patient reports she is scheduled to see her cardiologi st next week. VS: SBP 138/72 mmHg, SpO2 99%, AfebrileEx am: Clear lungs, no lower extremity edemaAller gikimberly: Reviewed Impression :Worried but well Plan:-The patient had normal blood pressure during the visit.-It is possible that she is recovering from COVID, and her PO intake is not optimal.-T he patient was advised to continue checking her BP, and if SBP <120, not to take her BP medication s (Valsartan and Spironolac tone).-Ora l hydration was encouraged .-Advised to keep her appointmen t with her cardiologi st and bring the BP log.-Red flags were discussed with the patient. We discussed the diagnostic uncertaint y of home visits and the risk associated with this. In this case, the patient and I felt this to be an acceptable and reasonable amount of risk given the benefit of avoiding an ED visit. We discussed the need to seek care urgently/e mergently in the setting of any new or worsening serious symptoms, particular ly dizziness, weakness, headache , blurry vision, chest pain , shortness of breath, abdominal pain, nausea, vomiting, diarrhea or any other concerns . Health Concerns Section Related Observation LastModified by Organization Detai ls LastModified Time None Recorded Concern Status LastModified by Organization Details LastModified Time None Recorded Payers Encounter Date Sequence Insurance Name Policy Number Policy Johnston Covered Member ID Johnston Member ID Guarantor Name 12/03/2024 1 [facility] - DOS ON OR AFTER 2023 - DUAL ELIGIBLE - RESIDENTIAL OPTIONS AND ONE CARE (MEDICARE REPLACEMENT/ADV ANTAGE - HMO) Amee Joseph [id number] Amee Joseph Notes Date Note Type Note Provider Name and Address Organization Details Recorded Time 12/03/2024 text/html [facility] Nurse Triage Notes (Sujey Klein - RN): Reason For Request: Pt reporting low blood pressure 86/61 (approximation), feeling weak>pt reporting she was COVID positive on 11/28/24 Chief Complaints: Hypotension, Weakness PMH: Hypertension, Coronary Artery Disease, COPD/Asthma PMH Reviewed at 12/03/2024 - :41 Allergies Reviewed at 12/03/2024 - :41 Comments: Family Law Paralegal verified the member's name//address and phone number. Member Korean speaking only, foreign language interpreter used. Member calling to report hypotension, most recent BP 146/90, but as low as 86/61. BPs have varied throughout the day, around 1700 BP was 111/61. Pt endorses weakness, denies dizziness. Member denies confusion, but reports I feel that my head fells off . Decreased appetite, but feels adequate PO intake though out the day. +Covid 11/28/24. Reports mild cough with Covid, but cough has resolved. Denies fevers. Mild increase in FLEMING, able to speak in full sentence no apparent distress. Denies SOB, chest pain or heart palpitations. Education provided on the response time and the member was advised to monitor reported s/s and seek emergency treatment if needed. .................. .................. .................. .................. .................. .................. .................. ............... Reinforced Concrete Inspector Note From Bartolome Reed: Pt co low BP reading on home BP machine, 98-146 systolic. Pt denies headache , dizziness, NVD, cp, sob , abdominal pain or blurry vision. Baseline vitals assessed, WNL. [facility] contacted and advised pt that if BP continues to read low to take half dose of BP med. pt sts has appt with temp recruiter next week. Education provided on signs indicating the ER. Pt advised to follow up with pcp, .................. .................. .................. .................. .................. .................. .................. ............... [facility] Consulted: Joss Lira .................. .................. .................. .................. .................. .................. .................. ............... Disposition: Óscar LIRA MD [address] [facility], [place], [address], ADRIANE CHACON 12/03/2024 22:27:39 OBGyn Episode No OBEpisode recorded.
--- OUTSIDE RECORDS SUMMARY | 2024-12-21 12:53 | XMS_ITS | Encounter Summary ---
Author Organization [employer] [facility] Address [address] [place] [address] Care Team Providers Care Bottoming Machine Operator Name Role Phone Andriy Scott MD Primary Care Prov ider Encounter Details Date Type Department Care Team (Latest Contact Info) Description 06/27/2022 Abstract [facility] CONVERSIONS Dental, Provider, DDS Social [...] on filedocumented in this encounter Care Teams Bottoming Machine Operator Relationship Specialty Start Date End Date Andriy Scott MD [address] [place] [address] PCP - General Internal Medicine 04/05/20 documented as of this encounter
--- OUTSIDE RECORDS SUMMARY | 2024-12-21 12:53 | XMS_ITS | Encounter Summary ---
Author Organization [employer] [facility] Address [address] [place] [address] Care Team Providers Care Can Runner Name Role Phone Andriy Scott MD Primary Care Prov ider Encounter Details Date Type Department Care Team (Late st Contact Info) Description 12/18/2022 Orders Only [facility] MEDICINE [address] [place], [place] [phone] Andriy Scott MD [address] [place] [address] Non-seasonal allergic rhinitis due to fungal spores (Primary Dx) Social History Tobacco Use Types Packs/Day Years [...] Diagnosis Non-seasonal allergic rhinitis due to fungal spores- Primary documented in this encounter Care Teams Can Runner Relationship Specialty Start Date End Date Andriy Scott MD [address] [place] [address] PCP - General Internal Medicine 04/05/20 documented as of this encounter
--- OUTSIDE RECORDS SUMMARY | 2024-12-21 12:53 | XMS_ITS | Clinical Summary ---
Author Organization [facility] Address [address] [place] [address] Care Team Providers Care Master Dyer Name Role Phone Zita Connell PA-C Primary Care Provider [phone] Source Comments PLEASE NOTE, if this patient is a minor, it may be UNLAWFUL to discuss sensitive information that is contained in these records (such as FAMILY PLANNING, MENTAL HEALTH or SUBSTANCE ABUSE) with the minor patient's parent or other person without the patient's specific authorization.[facility] Allergies Active Allergy Reactions Criticality Noted Date Comments Amlodipine 09/07/2015 Lisinopril 05/17/2015 Penicillin Rash,Swelling 05/13/2015 Medications doxazosin (CARDURA) 4 mg tablet Take 4 mg by mouth nightly at bedtime. 11 5 Active losartan (COZAAR) 100 mg tablet Take 100 mg by mouth once daily. 3 5 Active fluticasone (FLOVENT HFA) 110 mcg/actuation inhalerIndications :Asthma, mild intermittent, uncomplicated Inhale 1 Puff into the lungs 2 (two) times daily. 1 Inhaler 6 5 Active aspirin 81 mg chewable tabletIndications: Diabetes type 2, uncontrolled,Dysli pidemia Place 1 Tab into mouth, chew and swallow once daily. 30 Tab 3 5 Active metFORMIN (GLUCOPHAGE) 1,000 mg tabletIndications: Diabetes type 2, uncontrolled Take 1 Tab by mouth 2 (two) times daily with a meal. 180 Tab 3 5 Active isosorbide mononitrate (IMDUR) 60 mg 24 hr tablet Take 1 Tab by mouth once daily. 30 Tab 6 5 Active dicyclomine (BENTYL) 10 mg capsuleIndications :Abdominal pain, other specified site Take 1 Cap by mouth 4 (four) times daily before meals and nightly. 90 Cap 3 5 Active rosuvastatin (CRESTOR) 40 mg tabletIndications: Dyslipidemia Take 1 Tab by mouth once daily. 90 Tab 0 5 Active chlorthalidone (HYGROTEN) 25 mg tablet Take 1 Tab by mouth once daily. 30 Tab 3 5 Active albuterol sulfate hfa 90 mcg/actuation inhaler Inhale 2 Puffs into the lungs every 4 (four) hours as needed for shortness of breath or wheezing. 18 g 3 5 Active loratadine (CLARITIN) 10 mg tabletIndications: Other seasonal allergic rhinitis Take 1 Tab by mouth once daily. 30 Tab 6 5 Active traMADol (ULTRAM) 50 mg tabletIndications: Chronic abdominal pain Take 1 Tab by mouth every 6 (six) hours as needed for pain. 15 Tab 0 5 Active Active Problems Problem Noted Date Diagnosed Date Coronary atherosclerosis 05/18/2015 Overview (05/18/2015): Followed by [facility] Cardiology Dr.Robert Ward Coronary artery disease invo lving [place] coronary artery without angina pectoris 05/18/2015 Abdominal pain, other specified site 05/17/2015 Overview (07/01/2015): as per past Medical records from - Adult [facility]- followed by Dr. Echavarria- CT Abdomen unremarkable 2010 and 01/2014- notes indicates pain may be due to irritable bowel syndrome. Hx of colonoscopy 05/17/2015 Overview (05/17/2015): as per past Medical records from - Adult Primary [facility]- done 2005 and 2011 - showed 2 polyps KIKA (obstructive sleep apnea) 05/15/2015 Bilateral low back pain without sciatica 015 Diabetes type 2, uncontrolled 05/15/2015 Overview (05/17/2015): A1C 7.1 -01/09 - 7.5 - 04/07 as per past Medical records from - Adult [facility] Essential hypertension 05/13/2015 Overview (05/17/2015): as per past Medical records from - [facility] Asthma, mild intermittent 05/13/2015 Overview (05/17/2015): Extrinsic asthma unspecified- as per past Medical records from - [facility] Dyslipidemia 05/13/2015 Overview (05/17/2015): as per past Medical records from - [facility] Resolved Problems Problem Noted Date Diagnosed Date Resolved Date Mixed hyperlipidemia 05/17/2015 015 Overview (05/17/2015): as per past Medical records from - [facility] Family History Medical History Relation Name Comments Heart Problems Father Mental illness Mother Heart Problems Sister 1 Relation Name Status Comments Brother 1 Father Mother Sister 1 Alive Social History Tobacco Use Types Packs/Day Years Used Date Smoking Tobacco: Never Alcohol Use Standard Drinks/Week Comments No 0 (1 standard drink = 0.6 oz pur e alcohol) Social Connections Answer Date Recorded Social Connections and Isolation 0 07/19/2019 Financial Resource Strain Answer Date R ecorded Financial Resource Strain 0 2018 Stress Answer Date Recorded Stress 0 07/19/2019 Physical Activity Answer Date Recorded Physical Activity 0 07/19/2019 Food Insecurity Answer Date Recorded Food 0 07/19/2019 Transportation Needs Answer Date Record ed Transportation 0 07/19/2019 Housing Stability Answer Date Recorded Housing 0 07/19/2019 Safety and Environment Answer Date Fransico rded Safety 0 07/19/2019 Utilities Answer Date Recorded Utilities 0 07/19/2019 Employment Answer Date Recorded Employment 0 07/19/2019 Comments No Sex and Gender Information Value Date Recorded Sex Assigned at Not on file Legal Sex Female 11:27 AM PDT Gender Identity Not on file Sexual Orientation Not on file Last Filed Vital Signs Vital Sign Reading Time Taken Comments Blood Pressure 128/70 09/07/2015 9:27 AM EDT Pulse 80 09/07/2015 9:27 AM EDT Temperature 37.1 ??C (98.7 ??F) 09/07/2015 9:27 AM ED T Respiratory Rate 14 09/07/2015 9:27 AM EDT Oxygen Saturation 96% 07/01/2015 3:25 PM EDT Inhaled Oxygen Concentration - - Weight 87.1 kg (192 lb) 09/07/2015 9:27 AM EDT Height 147.3 cm (4' 10 ) 09/07/2015 9:27 AM EDT Body Mass Index 40.13 09/07/2015 9:27 AM EDT Plan of Treatment Not on file Insurance [employer] MEDICARE [place] Care Teams Master Dyer Relationship Specialty Start Date End Date Zita Connell PA-C [address] [place] [address] PCP - General 01/20/19
--- OUTSIDE RECORDS SUMMARY | 2024-12-21 12:53 | XMS_ITS | Encounter Summary ---
Author Organization [facility] Address [address] [place] [address] Care Team Providers Care Vehicle Insurance Agent Name Role Phone Andriy Scott Primary Care Provide r Reason for Visit * Reason Comments Follow-up Encounter Details Date Type Department Care Team ([facility] Contact Info) Description 12/15/2024 10:40 AM EST Office Visit [facility] [address] [facility] [address] [place] [address] Mary Jett, SHELBI [address] [place] [address] Coronary artery disease involving [place] coronary artery of [place] heart without angina pectoris (Primary Dx); Mixed hyperlipidemia; Primary hypertension; Class 3 severe obesity due to excess calories with serious comorbidity and body mass index (BMI) of 40.0 to 44.9 in adult ([facility]); PAD (peripheral artery disease) ([facility]) Social History Tobacco Use Types Packs/Day Years [...] on file documented as of this encounter Last Filed [...] Mass Index 41.79 12/15/2024 10:20 AM EST documented in this encounter Ordered Prescriptions Prescription Sig Dispensed Refills Start Date End Da te nitroglycerin (NITROSTAT) 0.4 mg SL tabletIndications:Coronar y artery disease involving [place] coronary artery of [place] heart without angina pectoris Place 1 tablet (0.4 mg total) under the tongue every 5 (five) minutes if needed for chest pain. 26 tablet 3 12/15/2024 documented in this encounter Progress Notes * Mary Jett NP - 12/15/2024 10:40 AM ESTAssociated Problem(s): Mixed hyperlipidemia The patient's most recent lipid panel was completed 01/10/2024 revealing an LDL of 63. LDL goal for this patient was a history of coronary artery disease is less than 70. We will update this today andreaddress this as needed. Continue Repatha. Orders: Lipid panel with reflex to direct LDL; Future * Mary Jett NP - 12/15/2024 10:40 AM ESTAssociated Problem(s): Primary hypertension Blood pressure is well-controlled on current medical therapy; continue spironolactone. Will obtain metabolic panel and magnesium level today. Orders: Magnesium; Future Basic metabolic panel; Future * Mary Jett NP - 12/15/2024 10:40 AM ESTAssociated Problem(s): Coronary artery disease involving [place] heart without angina pectoris The patient remains active within her current [...] (five) minutes if needed for chest pain. * Mary Jett NP - 12/15/2024 10:40 AM ESTAssociated Problem(s): Class 3 severe obesity due to excess calories with serious comorbidity and luci dy mass index (BMI) of 40.0 to 44.9 in adult ([facility]) Patient is obese. Approaches towards weight loss are discussed, including burning more calories than one takes in by portion control and regular exercise with an emphasis on duration rather than intensity. * Mary Jett NP - 12/15/2024 10:40 AM ESTAssociated Problem(s): PAD (peripheral artery disease) ([facility]) The patient offers no symptoms; no new concerning findings on exam today. We will continue to monitor this on serial imaging. Continue with efforts towards proper blood pressure and lipid control. EE * Mary Jett NP - 12/15/2024 10:40 AM EST Images from the original note were not included. [facility] PRIMARY AGRICULTURAL SALES REPRESENTATIVE: Santi Becker MD PCP: Devan Winkler HPI: Amee Hartman is a 79 y.o. old female with a past medical history significant for coronary artery disease, hypertension, hyperlipidemia, peripheral arterial disease (s/p angioplasty of the right common iliac artery September 2020), diabetes, chronic kidney disease and asthma. She was hospitalized 08/28/2019 after an episode of chest discomfort. Nuclear stress test was completed; she exercised for 10 minutes and achieved 100% of MPHR without evidence of ischemia. Her most recent cardiac cath was in 2015 which revealed 80% stenosis of the proximal to mid RCA, 85% stenosis of the ostial RPDA; she received 2 drug- eluting stents placed to the RCA. Her chart notesthat she previously had had PCI to the LAD. Her previous anginal symptom consisted of chest burning. She was evaluated at [facility] in 02/2022 for chest discomfort described as a sharp burning sensation. Troponin was negative. Plan to get echocardiogram as an outpatient but no further inpatient workup was completed. Echo completed 05/10/2022 revealed EF of 55 to 60% without obvious wall motion abnormality. No other significant abnormalities. She was hospitalized at [facility] in October 2023 for chest pain; she had multiple negative troponins, EKG was nonischemic, and her chest pain was thought to be noncardiac although didimprove with nitro. She subsequently underwent an exercise nuclear stress test later that month, exercising 8 minutes and 38 seconds to 104% of MPHR. There was a fixed defect in the inferior and inferior lateral wall with preserved thickening felt to be artifact. EF greater than 75%. Recent echocardiogram was completed on 10/13/2024 showing normal left ventricular size with mild LVH and normal systolic function with an EF of 60 to 65%. No regional wall motion abnormalities noted.Normal left and right atrium. Normal RV size and function. No hemodynamically significant valvular d ysfunction. 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 This was similar to 10/2022. CTA head and neck done at [facility] 08/02/24 revealed nolarge vessel occlusion in the head or neck, severe stenosis of the proximal left subclavian artery likely resulting reduced flow to the left vertebral artery, moderate narrowing of bilateral proximalcervical vertebral arteries, and mild narrowing of bilateral cervical ICAs. The patient presents today for follow-up of coronary artery disease, hypertension, and hyperlipidemia. She is accompanied today by her friend Sisi who interprets for her; she declines a formal medical assistant dermatology. She was was last seen by me in 06/2024. She reports staying active at home with walking and doing housework; she takes the stairs regularly as her bedroom is on second floor. She deniesany chest pain or pressure at rest or with exertion. She will get a little winded at the top of the stairs especially if she goes up too quickly but this resolves quickly with rest and she feels this is appropriate for her level of activity and conditioning; otherwise she denies any shortness of breath at rest with exertion. She denies any palpitations, peripheral edema, lightheadedness or dizziness, syncope or presyncope, orthopnea or PND. ACTIVE MEDICATIONS: Outpatient Medications Marked as Taking for the 12/15/24 encounter (Office Visit) with Mary Jett NP Medication Sig Dispense Refill albuterol HFA (PROAIR HFA ; PROVENTIL HFA ; VENTOLIN HFA) 90 mcg/actuation inhaler Inhale 2 puffs by mouth every 4 (four) hours if needed. aspirin 81 mg EC tablet 81 mg. calcium carbonate-vitamin D3 600 mg-12.5 mcg (500 unit) capsule Take 1 tablet by mouth 1 (one) timeeach day. doxazosin (CARDURA) 4 mg tablet 4 mg. dulaglutide (Trulicity) 0.75 mg/0.5 mL pen injector injection Inject into the skin. evolocumab (Repatha SureClick) 140 mg/mL pen injector injection INJECT 1ml SUBCUTANEOUSLY EVERY 14 DAYS ferrous gluconate (FERGON) 324 mg (37.5 mg iron) tablet Take 1 tablet (324 mg total) by mouth 1 (one) time each day. multivit with min-folic acid (Adult Multivitamin Gummies) 200 mcg tablet,chewable Chew 1 tablet 1 (one) time each day. nitroglycerin (NITROSTAT) 0.[address] 0.4 mg under the tongue every 5 minutes as needed. spironolactone (ALDACTONE) 25 mg tablet Take 0.5 Tablets by mouth daily. PAST MEDICAL HISTORY: Patient Active Problem List Diagnosis Chest pain Chronic gastritis Coronary artery disease involving [place] heart without angina pectoris Diverticulosis Dyslipidemia Internal hemorrhoids Mixed hyperlipidemia PAD (peripheral artery disease) (CMS/HCC) Primary hypertension Stable angina (CMS/HCC) Peripheral edema Fatigue Dizziness Carotid stenosis, bilateral ALLERGIES: Allergies Allergen Reactions Amlodipine Pain Abdominal pain Other reaction(s): abdominal pain , Abdominal pain' feeling weak/tired Lisinopril Feeling weak/tired Diph,Pertuss(Acel),Tet Vac(Pf) Unknown Diphtheria,Pertussis (Acellular),Tetanus Vaccine Penicillins Unknown, Rash and Swelling SOCIAL HISTORY: Social History Tobacco Use Smoking status: Never Smokeless tobacco: Never Substance Use Topics Alcohol use: Never PHYSICAL EXAM: Vitals: 12/15/24 1020 BP: 114/82 Pulse: 74 SpO2: 94% Weight: 97.1 kg (214 lb) Height: 1.524 m (60 ) Body mass index is 41.79 kg/m??. Physical Exam Vitals reviewed. Constitutional: General: She is not in acute distress. Appearance: Normal appearance. She is obese. She is not ill-appearing. HENT: Head: Normocephalic and atraumatic. Mouth/Throat: Mouth: Mucous membranes are moist. Eyes: General: No scleral icterus. Extraocular Movements: Extraocular movements intact. Pupils: Pupils are equal, round, and reactive to light. Neck: Vascular: Normal carotid pulses. Carotid bruit (bilateral) present. No hepatojugular reflux or JVD. Cardiovascular: Rate and Rhythm: Normal rate and regular rhythm. Pulses: Carotid pulses are 2+ on the right side and 2+ on the left side. Radial pulses are 2+ on the right side and 1+ on the left side. Heart sounds: Normal heart sounds. No murmur heard. No friction rub. No gallop. Pulmonary: Effort: Pulmonary effort is normal. No respiratory distress. Breath sounds: Normal breath sounds. No wheezing, rhonchi or rales. Abdominal: General: There is no distension. Palpations: Abdomen is soft. Tenderness: There is no abdominal tenderness. Musculoskeletal: General: No swelling. Cervical back: Neck supple. Right lower leg: No edema. Left lower leg: No edema. Skin: General: Skin is warm and dry. Neurological: General: No focal deficit present. Mental Status: She is alert and oriented to person, place, and time. Cranial Nerves: No cranial nerve deficit. Gait: Gait normal. Psychiatric: Attention and Perception: Attention normal. Mood and Affect: Mood and affect normal. Behavior: Behavior normal. Thought Content: Thought content normal. EKG: Not completed today. TESTING: Most recent lipid panel was completed 01/10/2024 showing a total cholesterol 125, triglycerides 76, LDL 63, HDL 47. ASSESSMENT/PLAN: Assessment & Plan Coronary artery disease involving [place] coronary artery of [place] heart without angina pectoris The patient remains active within her current [...] (five) minutes if needed for chest pain. Mixed hyperlipidemia The patient's most recent lipid panel was completed 01/10/2024 revealing an LDL of 63. LDL goal for this patient was a history of coronary artery disease is less than 70. We will update this today andreaddress this as needed. Continue Repatha. Orders: Lipid panel with reflex to direct LDL; Future Primary hypertension Blood pressure is well-controlled on current medical therapy; continue spironolactone. Will obtain metabolic panel and magnesium level today. Orders: Magnesium; Future Basic metabolic panel; Future Class 3 severe obesity due to excess calories with serious comorbidity and body mass index (BMI) of40.0 to 44.9 in adult ([facility]) Patient is obese. Approaches towards weight loss are discussed, including burning more calories than one takes in by portion control and regular exercise with an emphasis on duration rather than intensity. PAD (peripheral artery disease) ([facility]) The patient offers no symptoms; no new concerning findings on exam today. We will continue to monitor this on serial imaging. Continue with efforts towards proper blood pressure and lipid control. I personally spent a total of 30 minutes, including both [id number] and brw-[id number]-[id number]-face time on the date of the encounter, addressing the above diagnoses. Activities performed in this time include chart review, obtaining / reviewing history, performing amedically necessary evaluation, documentation and counseling including medical decision making of coronary artery disease, hyperlipidemia, hypertension, obesity, and peripheral artery disease. Thank you for allowing us to participate in the care of this patient. The patient will follow up in6 months, sooner PRN. As per AHA guidelines and previously established plan of care by Dr. Santi Becker MD, we discussed the following today: Coronary artery disease, hyperlipidemia, hypertension, obesity, and peripheral artery disease. This note was dictated using voice recognition software. Please pardon any grammatical or syntax errors. [facility] documented in this encounter Plan of Treatment Upcoming Encounters Date Type Department Care Team (Late st Contact Info) Description 06/15/2025 1:00 PM EDT Office Visit [facility] [address] [address] Santi Becker MD [address] [address] Scheduled Orders Name Type Priority Associated Diagnoses Orde r Schedule Lipid panel with reflex to direct LDL Lab Routine Mixed hyperlipidemia 1 Occurrences starting 12/15/2024 until 12/15/2025 Magnesium Lab Routine Primary hypertension 1 Occurrences starting 12/15/2024 until 12/15/2025 Basic metabolic panel Lab Routine Primary hypertension 1 Occurrences starting 12/15/2024 until 12/15/2025 documented as of this encounter Visit Diagnoses Diagnosis Coronary artery disease involving [place] coronary artery of [place] heart without angina pectoris- Primary Mixed hyperlipidemia Primary hypertension Unspecified essential hypertension Class 3 severe obesity due to excess calories with serious comorbidity and body mass index (BMI) of 40.0 to 44.9 in adult ([facility]) PAD (peripheral artery disease) ([facility]) Unspecified peripheral vascular disease documented in this encounter Discontinued Medications Medication Sig Discontinue Reason Start Date End Da te nitroglycerin (NITROSTAT) 0.[address] 0.4 mg under the tongue every 5 minutes as needed. Reorder 12/15/2024 documented as of this encounter Historical Medications * This list may reflect changes made after this encounter. Medication Sig Dispensed Refills Start Date End Date ferrous gluconate (FERGON) 324 mg (37.5 mg iron) tablet Take 1 tablet (324 mg total) by mouth 1 (one) time each day. 11/24/2024 added in this encounter Care Teams Vehicle Insurance Agent Relationship Specialty Start Date End Date Andriy Scott [address] [place] [address] PCP - General Internal Medicine 12/15/20 documented as of this encounter
--- OUTSIDE RECORDS SUMMARY | 2024-12-21 12:53 | XMS_ITS | Encounter Summary ---
Author Organization [employer] Address [address] [facility] [address] [place] [address] Care Team Providers Care Candy Supervisor Name Role Phone Andriy Scott MD Primary Care Prov ider Encounter Details Date Type Department Care Team ([facility] st Contact Info) Description 12/07/2022 Orders Only [facility] [address] [place], [place] [phone] Tyra Anand LPN Social History Tobacco Use Types Packs/Day [...] on filedocumented in this encounter Care Teams Candy Supervisor Relationship Specialty Start Date End Date Andriy Scott MD [address] [place] [address] PCP - General Internal Medicine 04/05/20 documented as of this encounter
--- OUTSIDE RECORDS SUMMARY | 2024-12-21 12:53 | XMS_ITS | Encounter Summary ---
Author Organization [employer] Address [address] [facility] [address] [place] [address] Care Team Providers Care Family Living Educator Name Role Phone Andriy Scott MD Primary Care Prov ider Encounter Details Date Type Department Care Team ([facility] st Contact Info) Description 03/25/2023 Orders Only [facility] [address] [place], [place] [phone] Joann Patrick LPN Social History Tobacco Use [...] documented as of this encounter Care Teams Family Living Educator Relationship Specialty Start Date End Date WinklerAndriy Gonzalez MD [address] [place] [id number] PCP - General Internal Medicine 04/05/20 documented as of this encounter
--- OUTSIDE RECORDS SUMMARY | 2024-12-21 12:53 | XMS_ITS | Data Portability ---
Author Organization [facility] Address [address] [place] [address] Care Team Providers Care Validation Architect Name Role Phone HIM [facility] OTHER [facility] OTHER HARTMANEZEQUIEL GONZALEZ Primary Care Provider Assessment Encounter Date Assessment Date Assessment LastModified by Organization Details LastModified Time 11/29/2023 11/29/2023 78 yo F with HTN called bc feeling weak and noted to have a home BP limb discrepancies of LUE 80s/60s, RUE 150/50s while seated. Pt denies CP, SOB, palpitations, LOPEZ, visual changes, bleeding, changes to medications. Measures her BP daily, has noted discrepancy like this before. She is maintaining adequate hydration. Pt is afebrile w/o infectious s/sxs. Medic exam notes non pitting b/l LE edema, otherwise unremarkable. EKG sinus, no ST-TW changes Mild orthostasis on repeat BPs RUE 142/58 sitting, 166/78 standing LUE 98/60 sitting, 136/72 standing Given asymptomatic other than mild weakeness, no concern for dissection or aneurysmal rupture. Reassuring that BPs nml with standing Instructed to increase PO intake. Given precautions for call back vs ED if afterhours. Has cardiology visit this coming 12/02. [email or web address] Not available 11/29/2023 15:52:25 11/29/2024 11/29/2024 I provided real -time medical direction via phone for this encounter and was available for additional phone-based assistance as needed. I have reviewed and agree with the Assessment and Plan as documented by the Interventional Pain Physician. Patient given the opportunity to ask questions. Our service contacted for an assessment of: Viral URI symptoms As per above, patient with approximately several days of viral URI symptoms. Denies fever or chills. Denies chest pain, shortness of breath, dyspnea on exertion. Positive nasal congestion and dry cough. Positive sick contacts. She tested herself for COVID this morning in his positive. Per chief financial officer on the scene, vital signs are stable and patient is afebrile. Lungs clear. Patient with temp earlier in the day but afebrile currently. No increased work of breathing and no distress. Impression: COVID-19 Plan: Continue with [id number] medications to control symptoms. Red flags discussed [...] Details Last Modified Time Details Appointments None recorded. Lab BMP, serum or plasma 2023 [facility], [address] [place] [address], [id number], 16:15:58 Referral None recorded. Procedures None recorded. Surgeries None recorded. Imaging electrocard iogram 2023 [facility], [address] [place] [address], [id number], 16:15:59 Medication Orders Diflucan 150 mg tablet 2023 [facility], [address] [place] [address], [id number], 4 12:59:25 ketoconazol e 2 % topical cream 2023 [facility], [address] [place] [address], [id number], 4 12:59:25 nystatin 100,000 unit/gram topical powder 2023 024 [facility], [address] [place] [address], [place], [place], [id number], 4 12:59:25 Patient TargetsNo targets recorded. Patient InstructionsNo instructions recorded. Reason for Referral None Reported. Results Created Date Observation Date Name Description Value Unit Range Abnormal Flag Note LastModifiedBy Organization Detail LastModifiedTime 07/17/20 24 07/17/2024 BMP, serum or plasm a CRE 0.9 Not Available [facility] [address], [id number], 07/17/2024 16:13:32 07/17/20 24 07/17/2024 BMP, serum or plasm a GLU 113 Not Available [facility] [address], [address], 07/17/2024 16:13:32 07/17/20 24 07/17/2024 BMP, serum or plasm a K+ 3.9 Not Available [facility] [address], [address], 07/17/2024 16:13:32 07/17/20 24 07/17/2024 BMP, serum or plasm a Na+ 142 Not Available [facility] [address], [address], 07/17/2024 16:13:32 07/17/20 24 07/17/2024 kenyatta buckley am No observ ation record ed. [email or web address], [address], 07/17/2024 16:15:59 Result Notes None recorded. Procedures Surgical History None recorded. Imaging Results Imaging Date Name Status LastModified by Organization Details LastModified Time 07/17/2024 electrocardiogram completed [address], [id number], 07/17/2024 16:15:59 Procedure Notes None recorded. Medical Equipment None Reported. Allergies Allergen ID Allergen Name Allergen Category Reaction Reaction Severity Criticality Documentation Date Start Date Code Code System Note Provider Name and Address Organization Details Recorded Time 1970 Product containin g penicilli n and antibioti c (product) medicatio n Not available Not available Not available 01/21/2023 46923 05 SNOMED Not Available [facility] - [facility] 4 03:34:36 1971 amlodipin e medicatio n Not available Not available Not available 01/21/2023 36500 RxNorm Rhina Simons MD [address] [facility],[address], [place], [address], [facility] 3 12:44:51 1972 Adacel medicatio n Not available Not available Not available 01/21/2023 41859 8 RxNorm Rhina Simons MD [address] [place] [address],[address], [place], [address], [employer] 3 12:45:04 Medications Name Sig Start Date [...] Vitals Date Recorded Respiratory rate Heart rate Oxygen saturation Oxygen saturation in Arterial blood by Pulse oximetry Body temperature Systolic blood pressure Diastolic blood pressure Provider Name and Address Organization Details Last Updated DateTime 4 14 /min 71 /min 97 % 97 % 97.7 [degF] 96 mm[Hg] 60 mm[Hg] Not Available [email or web address] - production 4 12:21:46 Date Recorded Oxygen saturation Oxygen saturation in Arterial blood by Pulse oximetry Heart rate Respiratory rate Body temperature Body weight Systolic blood pressure Diastolic blood pressure Provider Name and Address Organization Details Last Updated DateTime 4 98 % 98 % 78 /min 16 /min 98.4 [degF] 52385.4 96 g 132 mm[Hg] 62 mm[Hg] Not Available [facility] [employer] 4 11:27:56 Date Recorded Body weight Body height Body temperature Oxygen saturation Oxygen saturation in Arterial blood by Pulse oximetry Respiratory rate Heart rate Systolic blood pressure Diastolic blood pressure Provider Name and Address Organization Details Last Updated DateTime 4 41588.3 12 g 152.4 cm 98.4 [degF] 97 % 97 % 10 /min 67 /min 104 mm[Hg] 62 mm[Hg] Not Available [email or web address] - production 4 16:06:51 Date Recorded Respiratory rate Heart rate Body temperature Oxygen saturation Oxygen saturation in Arterial blood by Pulse oximetry Systolic blood pressure Diastolic blood pressure Provider Name and Address Organization Details Last Updated DateTime 5 95 /min 85 /min 101.4 [degF] 95 % 95 % 130 mm[Hg] 67 mm[Hg] Not Available [facility] - production 5 16:55:55 Date Recorded Respiratory rate Heart rate Body temperature Body weight Oxygen saturation Oxygen saturation in Arterial blood by Pulse oximetry Systolic blood pressure Diastolic blood pressure Provider Name and Address Organization Details Last Updated DateTime 5 16 /min 84 /min 97.8 [degF] 64424.7 2 g 99 % 99 % 138 mm[Hg] 72 mm[Hg] Not Available [facility] - production 5 20:47:01 Social History None recorded. Functional Status None recorded. Mental Status None recorded. Family History Nothing Reported. Medical History No medical history recorded. Gynecological HistoryNo gynecological history recorded. Obstetrics History GPAL:G 0 P 0 0 0 0 Past Encounters Encounter ID Performer Location Encounter Start Date Encounter Closed Date Diagnosis/Indication Diagnosis SNOMED-CT Code Diagnosis ICD10 Code Diagnosis Note [id number] Rhina Simons MD [facility] [address] [place] [phone] 01/21/2023 12:33:47 01/23/2023 12:29:15 Paresthesia 25319359 R20.2 likely a combinatio n of neuropathy and radicular s/s- pain is aggravated by movement- advised to continue regular medication s- bs well controlled - offered ketorolac for pain she declined- aware can call for repeat visit prn- has Tylenol 650 mg at home advised may take up to 1 tablet q 6 hr max dose given stated weight- aware we cannot determine exact cause of pain- reviewed red flags- to have lo threshold for calling 911 if symptoms worsen Thoracic back pain 48127 8004 M54.6 would benefit from imaging- r/o compressio [place] fx or hnp [id number] JALYN FLORES MD [facility] [address] [place] [phone] 11/29/2023 12:21:25 11/30/2023 15:51:28 Low blood pressure 22311480 I95.9 [id number] JOSS LIRA MD [facility] [address] [place] [phone] 03/19/2024 11:27:48 03/19/2024 18:30:31 Candidal intertrigo 098214880 B37.2 Evaluation in the field was performed by my chief financial officer colleague, as noted above, I provided real-time direction and supervisio n for this visit. The evaluation revealed Hypertensi on, Diabetes, Heart Disease, Hypertensi on, COPD/Asthm a, Other with hx of candidal intertrigo x 2 prior. Reports rash and pruritis under her breasts and groin area . Pt reports that she is flying to [place] on 04/03 and her PCP had no appointmen t. Denies fever, chills, CP, SOB, N/V/D, UTI symptoms. VSSBG 100 this am per patient report Impression :Candidal intertrigo Plan:Diflu can 150 mg PO y4Beoabjyi zole 2 % dailyNysta tin powder BID after the ketoconazo le is absorbed to keep the area dryPt advised re : Daily cleansing of intertrigi nous skin with a mild cleanser followed by drying of affected area with a communications department chair on a cool settingAer ation of affected area when feasibleUs e of absorbent material or clothing, such as cotton or bejarano wool, to separate skin in folds especially when in [place] Primary care, consider__ _ Dispositio n: We discussed the diagnostic uncertaint y of home visits and the risk associated with this. In this case, the patient and I felt this to be an acceptable and reasonable amount of risk given the benefit of avoiding an ED visit. We discussed the need to seek care urgently/e mergently in the setting of any new or worsening serious symptoms, particular ly worsening of the rash, fever, chills, elevated BG >250, N/V or any other concerns. [id number] Dottie Clifford MD [facility] [address] [place] [phone] 07/17/2024 16:06:35 07/17/2024 20:24:34 Dizziness [id number] R42 As noted, we were called to see this patient regarding concerns of dizziness and hypotensio n. Evaluation in the field was performed by my chief financial officer colleague, as noted above, I provided real-time direction and supervisio n for this visit. The evaluation revealed 78 y/o woman with HTN, CKD who had a low BP on home check around midday. This has happened a few times in the last 2-3 weeks, with resolution in 1-2 hours each time. This time she also had L sided weakness, which is resolved. She called today because it just felt like time.She has good PO intake and manages her chronic nausea.She is not orthostati c on our exam with sitting BP 104/62, HR67, standing 98/63, HR 78.Her labwork shows a glucose of 113 and mild anemia within her normal based on prior records.Sh colleen takes doxazosin and valsartan for her BP, bubble packed, in the morning. Impression :Intermitt ent relative hypotensio n vs orthostati c hypotensio n not seen on our exam Plan:There are not acute physical exam or lab changes that suggest an acute process on going. I would consider adjusting her BP meds so that her doxazosin is given at night, which may help with her daytime symptoms. Dispositio n: We discussed the diagnostic uncertaint y of home visits and the risk associated with this. In this case, the patient and I felt this to be an acceptable and reasonable amount of risk given the benefit of avoiding an ED visit. We discussed the need to seek care urgently/e mergently in the setting of any new or worsening serious symptoms, particular ly changes to consciousn ess, chest pain, dyspnea. [id number] Betzy Jackson MD [facility] [address] [place] [phone] 11/29/2024 16:55:51 11/30/2024 00:23:38 COVID-19 [id number] U07.1 [id number] JOSS LIRA MD [facility] [address] [place] [phone] 12/03/2024 20:46:57 12/04/2024 12:55:39 Worried well 09673646 Z71.1 Evaluation in the field was performed by my chief financial officer colleague, as noted above, I provided real-time [...] am: Clear lungs, no lower extremity edemaAller gies: Reviewed Impression :Worried but well Plan:-The patient [...] by Organization Details LastModified Time None Recorded Advance Directives Directive None Recorded Payers Encounter Date Sequence Insurance Name Policy Number Policy [place] Covered Member ID [place] Member ID Guarantor Name 11/29/2023 1 [facility] [employer] - DOS ON OR AFTER 2023 - DUAL ELIGIBLE - [employer] OPTIONS AND ONE CARE (MEDICARE REPLACEMENT/ADV ANTAGE - HMO) Amee Hartman [id number] Amee Hartman 03/19/2024 1 [facility] [employer] - DOS ON OR AFTER 2023 - DUAL ELIGIBLE - [employer] OPTIONS AND ONE CARE (MEDICARE REPLACEMENT/ADV ANTAGE - HMO) Amee Hartman [id number] Amee Hartman 07/17/2024 1 [facility] [employer] - DOS ON OR AFTER 2023 - DUAL ELIGIBLE - [employer] OPTIONS AND ONE CARE (MEDICARE REPLACEMENT/ADV ANTAGE - HMO) Amee Hartman [id number] Amee Hartman 11/29/2024 1 [facility] DOS ON OR AFTER 2023 - DUAL ELIGIBLE - [employer] OPTIONS AND ONE CARE (MEDICARE REPLACEMENT/ADV ANTAGE - HMO) Amee Hartman [id number] Amee Hartman 12/03/2024 [facility] OR AFTER 2023 - DUAL ELIGIBLE - [employer] OPTIONS AND ONE CARE (MEDICARE REPLACEMENT/ADV ANTAGE - HMO) Amee Hartman [id number] Amee Hartman Notes Date Note Type Note Provider Name and Address Organization Details Recorded Time 11/29/2023 text/html CRC Nurse Triage Notes (Tamica Andersen): Reason For Request: Hypotension/weakness Chief Complaints: Weakness/Lethargy, Syncope/Dizziness/Li ghtheadedness PMH: Hypertension, Diabetes, Heart Disease Allergies: Penicillin Comments: member called to report weakness, b/p 84/63. Limited in assessment due to pt repeating her chief complaints of weakness. Pt is alone, son just left, requesting to be seen. pt does not speak/read Romanian, consent not sent at this time verified /address. Jessica BURDEN .................... .................... .................... .................... .................... .................... .................... . Interventional Pain Physician Note From Paul Farrar: Encountered patient seated upright unconscious with family present. Patient expresses two days of increased lethargy and weakness, denies chest pain, shortness of breath, or acute changes in vision. Patient expresses she does have a cardiology appointment this coming Saturday. Patient denies being on anticoagulated medication. Fast exam yields no pertinent findings. Skin warm, dry and appropriate color for ethnicity. Head and neck, free of trauma and edema. NJVD. Breath sounds present clear and equal bilaterally. Abdomen is soft, non-tender and non-distended. Patient denies any issues with urination; denies burning, pain or difficulty going. Lower extremities exhibit +1 nonpitting edema, patient expresses this is not baseline for her. Upper extremities, free of trauma and edema. 12 lead EKG performed: sinus rhythm with no present ST-segment elevation or depression. [facility] contacted: requested orthostatic vital signs be performed results, provided to [facility]. [facility] expresses reluctance at administering IV fluid, considering patients feet are edematous. With patient being able to tolerate PO intake at this time patient encouraged to follow up with preestablished cardiology appointment that is set for this coming Saturday. Patient and family both expressed comfort with patient remaining at home and going through their appointment. Patient and family both urged to seek further medical attention should patient begin experiencing chest pain, shortness of breath, or any other priority symptoms. Interventional Pain Physician Allergies: Penicillin .................... .................... .................... .................... .................... .................... .................... . Disposition: Fulfilled JALYN FLORES MD [address] [place] [address],[address], [place], [address], [facility] 11/29/2023 15:52:35 03/19/2024 text/html HPI: Hx: Candidal Interigo Patient with increased redness and raw skin in groin and under breasts severe itch .................... .................... .................... .................... .................... .................... .................... . [facility] Nurse Triage Notes (Sujey Klein): Comments: HPI reviewed, no further questions .................... .................... .................... .................... .................... .................... .................... . Interventional Pain Physician Note From Bartolome Reed: Pt co rash/raw skin under breasts and under belly lower abdomen. Pt sts has had before and was told it was yeast infection. Pt denies fever NVD cp or sob. Baseline vitals assessed. Rash assessed photos uploaded. [facility] contacted diflucan , cream, and nistatin powder called into pharmacy for delivery. Pt advised to follow up with pcp. Pt has appt march 30. Pt education on signs indicating the ER. Interventional Pain Physician Allergies: Penicillin .................... .................... .................... .................... .................... .................... .................... . Disposition: Óscar LIRA MD [address] [facility],[address], [place], [address], [facility] 03/19/2024 11:43:58 07/17/2024 text/html CRC Nurse Triage Notes (Loly Phelps): Reason For Request: low BP Chief Complaints: Hypotension PMH: Hypertension, Diabetes, Heart Disease, COPD/Asthma Allergies: Penicillin Comments: Plate Washer verified the member's name//address and phone number. Patient calling to request referral for low blood pressure. BP of 84/51 today about 1 hour ago. Earlier today BP taken today 150's. Has not rechecked since that reading. Reports right arm feeling lazy. Denies dizziness, chest pain or shortness of breath. Patient has history of HTN, takes daily medication for hypertension. No recent changes in medication. Speech clear, answering question appropriately. Asymptomatic at this time. Education provided on the response time and the member was advised to monitor reported s/s and seek emergency treatment if needed. Interventional Pain Physician Organization Information for Karen Calvert Business Legal Name: [email or web address]? Address: [address] [place] [address], Geothermal Technician: Jhon Steward MD CLIA No.: [id number] Interventional Pain Physician POC Test Results from Karen Calvert iSTAT Chem8+ (17:11:35) Na: 142 mEq/L K: 3.9 mEq/L Cl: 106 mEq/L iCa: 1.22 mmol/L TCO2: 23 mmol/L Glu: 113 mg/dL BUN: 23 mg/dL Crea: 0.9 mg/dL Hct: 32 % Hb: 10.9 g/dL A EKG (17:11:38) EKG test performed. Attachments uploaded as part of this test result can be found under Documents section. .................... .................... .................... .................... .................... .................... .................... . Interventional Pain Physician Note From Karen Calvert: Sent to a call for a pt complaining of hypotension. SC8 arrives on scene, pt is alert and oriented, airway is patent. Pt states she had an episode of hypotension today around noon accompanied by general weakness and left arm numbness. Pt states symptoms resolved 1-2 hours later except for general weakness. Pt states this morning her BP was 150 systolic, and approx one hour after hyptoensive episode, pt's BP increased again. Pt's only other complaint is chronic nausea which she takes Famotidine for. Pt keeps a log of vital signs which shows she was hypotensive on 07/04, 07/05, and 07/13. Pt states she had similar symptoms as she did today which resolved on their own. Pt states she called for a visit today, but then began feeling better after calling. Pt is currently prescribed Valsartan and Doxazosin once daily. Pt denies lopez, dizziness, cp, sob, vomiting, diarrhea, abd pain, fever, or loc. (sitting) BP:104/62, P:67, RR:18, SpO2:97% RA, T:98.4; (standing) BP:98/63, P:78; Head: unremarkable; Lung sounds: clear bilaterally; Abdomen: soft, non-tender, no distention; Back: unremarkable; Extremities: unremarkable; Skin: pink, warm, dry; 12 lead ECG: uploaded to [facility]; Venous blood draw performed: Istat Chem8+ results: uploaded to [facility]. [facility] consulted and will send note to pt's PCP advising pt's Doxazosin dose be switched from AM to PM. Pt's medications come in blister packs, so prescription needs to change before med change goes into effect. Red flags discussed. Pt has no further questions. .................... .................... .................... .................... .................... .................... .................... . Disposition: Fulfilled Dottie Clifford MD [address] [facility],[address], [place], [address], [facility] [employer] 07/17/2024 17:31:03 11/29/2024 text/html CRC Nurse Triage Notes (Aren Sapp - RN): Reason For Request: Pt reporting since yesterday having body aches with a cough, noting feeling weak>notes coughing through the night with some congestion>chills>de nies headache Patient Reports: Cough, fever greater than [...] PMH: Hypertension, Coronary Artery Disease, COPD/Asthma Comments: Plate Washer verified the Pt.'s name//address and phone number. [...] the body aches - Wellness visit requested .................... .................... .................... .................... .................... .................... .................... . Interventional Pain Physician Note From Monico Avalos: This 79-year-old female [...] questions and are agreeable to this plan. .................... .................... .................... .................... .................... .................... .................... . [facility] Consulted: Betzy Jackson .................... .................... .................... .................... .................... .................... .................... . Disposition: Fulfilled Betzy Jackson MD [address] [facility],[address], [place], [phone], [facility] [employer] 11/29/2024 16:58:19 12/03/2024 text/html CRC Nurse Triage Notes (Sujey Klein - RN): Reason For Request: Pt reporting low blood pressure 86/61 (approximation), feeling weak>pt reporting she was COVID positive on 11/28/24 Chief Complaints: Hypotension, Weakness PMH: Hypertension, Coronary Artery Disease, COPD/Asthma PMH Reviewed at 12/03/2024 - :41 Allergies Reviewed at 12/03/2024 - :41 Comments: Plate Washer verified the member's name//address and phone number. Member Italian speaking only, hotel or motel receptionist used. Member calling to report hypotension, most [...] s/s and seek emergency treatment if needed. .................... .................... .................... .................... .................... .................... .................... . Interventional Pain Physician Note From Bartolome Reed: Pt co low BP reading on home BP machine, 98-146 systolic. Pt denies headache , dizziness, NVD, cp, sob , abdominal pain or blurry vision. Baseline vitals assessed, WNL. [facility] contacted and advised pt that if BP continues to read low to take half dose of BP med. pt sts has appt with feed inspection supervisor next week. Education provided on signs indicating the ER. Pt advised to follow up with pcp, .................... .................... .................... .................... .................... .................... .................... . [facility] Consulted: Joss Lira .................... .................... .................... .................... .................... .................... .................... . Disposition: Óscar LIRA MD [address] [facility],[address], [place], [address], [employer] 12/03/2024 22:27:39 OBGyn Episode No OBEpisode recorded.
[2024-12-21 14:48] LABS: Anion Gap 12 (12-20); Blood Urea Nitrogen 16 mg/dL (9-16); Calcium 9.4 mg/dL (8.4-10.2); Carbon Dioxide 25 mmol/L (22-29); Chloride 109 mmol/L (96-108); Cholesterol 113 mg/dL (<200); Estimated Glomerular Filt Rate > 60; Glucose Random 78 mg/dL (60-115); HDL Cholesterol 51 mg/dL (>40); LDL Cholesterol Calculated 48 mg/dL (<100); Sodium 142 mmol/L (135-145); Triglycerides 71 mg/dL (<150)
[2024-12-21 15:44] LABS: Reflex LDLD? No
[2024-12-22 14:53] LABS: LDL Cholesterol Direct 44 mg/dL (<100)
== END 2024-12-21 08:43 | disposition home or self-care (01) ==
LOC: HO.CHCLDS 08:42
PROVIDERS: Visit Provider Nurse Practitioner Family
DX: I10 Essential (primary) hypertension (principal)
CPT/HCPCS: 36415; 80048; 80061; 83721; 83735

== ENCOUNTER 2024-12-29 10:47 | Outpatient (REF) | payer OTHER, SELFPAY ==
--- OUTSIDE RECORDS SUMMARY | 2024-12-29 11:41 | XMS_ITS | Continuity of Care Document ---
Author Organization [employer] Address [address] [place] [address] Care Team Providers Care Rehabilitation Worker Name Role Phone HIM [facility] OTHER [facility] OTHER [facility] Primary Care Provider Assessment Encounter Date Assessment Date Assessment LastModified by Organization Details LastModified Time 11/29/2024 11/29/2024 I provided real -time medical direction via phone for this encounter and was available for additional phone-based assistance as needed. I have reviewed and agree with the Assessment and Plan as documented by the Director Of Product Marketing. Patient given the opportunity to ask questions. Our service contacted for an assessment of: Viral URI symptoms As per above, patient with approximately several days of viral URI symptoms. Denies fever or chills. Denies chest pain, shortness of breath, dyspnea on exertion. Positive nasal congestion and dry cough. Positive sick contacts. She tested herself for COVID this morning in his positive. Per engine dispatcher on the scene, vital signs are stable and patient is afebrile. Lungs clear. Patient with temp earlier in the day but afebrile currently. No increased work of breathing and no distress. Impression: COVID-19 Plan: Continue with [id number] medications to control symptoms. Red flags discussed [...] Not available Not available Not available 01/21/2023 [id number] SNOMED Not Available [facility] - production 4 03:34:36 1971 amlodipin e medicatio n Not available Not available Not available 01/21/2023 [id number] RxNorm Rhina Simons MD [address] [place] [address],[address], [place], [phone], [employer] 3 12:44:51 1973 Adacel medicatio n Not available Not available Not available 01/21/2023 [id number] RxNorm Rhina Simons MD [address] [place] [address],[address], [place], [phone], [employer] 3 12:45:04 Medications Name Sig Start Date [...] SNOMED-CT Code Diagnosis ICD10 Code Diagnosis Note [id number] Betzy Jackson MD Main - [facility] [address] [place] [phone] 11/29/2024 16:55:51 11/30/2024 00:23:38 COVID-19 [id number] U07.1 Health Concerns Section Related Observation LastModified by Organization Detai ls LastModified Time None Recorded Concern Status LastModified by Organization Details LastModified Time None Recorded Payers Encounter Date Sequence Insurance Name Policy Number Policy Johnston Covered Member ID Johnston Member ID Guarantor Name 11/29/2024 1 [facility] - DOS ON OR AFTER 2023 - DUAL ELIGIBLE - HALF-WAY OPTIONS AND ONE CARE (MEDICARE REPLACEMENT/ADV ANTAGE - HMO) Amee Hartman [id number] Amee Hartman Notes Date Note Type Note [...] PMH: Hypertension, Coronary Artery Disease, COPD/Asthma Comments: [employer] Plant Worker verified the Pt.'s name//address and phone number. [...] .................. .................. .................. .................. .................. .................. ............... Director Of Product Marketing Note From Monico Avalos: This 79-year-old female [...] .................. .................. .................. .................. .................. .................. ............... [facility] Consulted: Betzy Jackson .................. .................. .................. .................. .................. .................. .................. ............... Disposition: Fulfilled Betzy Jackson MD [address] [facility],[address], [place], [address], [facility] 11/29/2024 16:58:19 OBGyn Episode No OBEpisode recorded.
--- OUTSIDE RECORDS SUMMARY | 2024-12-29 11:41 | XMS_ITS | Encounter Summary ---
Author Organization [employer] Address [address] [facility] [address] [place] [address] Care Team Providers Care Computer Lab Assistant Name Role Phone Andriy Scott MD Primary Care Prov ider Encounter Details Date Type Department Care Team ([facility] Contact Info) Description 12/23/2024 Orders Only [facility] [address] [place], [place] [phone] ProviderKaren MD Social History Tobacco Use Types Packs/Day Years Used Date Smoking Tobacco: Never Smokeless Tobacco: Never Alcohol Use Standard Drinks/Week Comments Never 0 (1 standard drink = 0.6 oz pur e alcohol) Depression Answer Date Recorded Patient Health Questionnaire-9 Score 0 02/21/2023 Housing Stability Answer Date Recorded What is your housing situation today? I have adizehra wiggins 09/12/[address] you [...] Author Blood Pressure < 140/90 Blood Pressure 116/67(2024 10:01 AM EST) No Mi Alcaraz PharmD Reduce adverse events General No change(2023 1:55 PM EST) Yes Mi Alcaraz PharmD Note: 01/20/24: Patient complaining of leg swelling- ?d/t famotidine? 12/02/23: Patient complaining of feeling tired/weak - ?d/t doxazosin. - This resolved as of 01/20/24 documented as of this encounter Procedures Procedure Name Priority Date/Time Associated Diagnosis Comments CT ABDOMEN PELVIS PRONE WO CONTRAST Routine 12/18/2024 12:49 PM EST documented in this encounter Results * CT Abdomen Pelvis Prone w/o Contrast (12/18/2024 12:49 PM EST) Anatomical Region Laterality Modality Computed Tomogra phy us Historical Provider MD CHAVEZ CT PROCEDURES Final R esult documented in this encounter Visit Diagnoses Not on filedocumented in this encounter Additional Health Concerns Assessment Noted Time PHQ-9 Depression Total Score: 0 02/22/20 23 1:22 PM EDT documented as of this encounter Care Teams Computer Lab Assistant Relationship Specialty Start Date End Date Andriy Scott MD [address] [place] [address] PCP - General Internal Medicine 04/05/20 documented as of this encounter
--- OUTSIDE RECORDS SUMMARY | 2024-12-29 11:41 | XMS_ITS | Encounter Summary ---
Author Organization [facility] Address [address] [place] [address] Care Team Providers Care Employee Representative Name Role Phone Andriy Scott Primary Care Provide r Reason for Visit * Reason Onset Date Comments admitted 12/22/2024 Encounter Details Date Type Department Care Team (Late st Contact Info) Description 12/22/2024 Telephone [facility] [address] [facility] [address] [place] [phone] Santi Becker MD [address] [place] [address] admitted Social History Tobacco Use Types Packs/Day Years [...] on file documented as of this encounter Progress Notes * Thea Macedo RN - 12/22/2024 9:47 AM EST Spoke with dtr Maira on contact list pt has left subclavian stenosis and vascular is suggesting out pt carotid duplex and seeing Vascular surgeon. Pt dtr has asked nurse for a cardiac consult. * Brittany Hartman - 12/22/2024 9:14 AM EST The patients daughter Maira called. The patient is currently admitted at [facility] and they want to do a Bypass. She is requesting to speak with Dr. Becker regarding this. I let her know that she is able to request a consult with Dr. Bishop through the hospital. She states the hospital is not listening to any of her requests and asked if we would be able to request this. I let her know that should be able to request this herself, she would like to speak with a nurse if possible. She can be reached at [phone]. documented in this encounter Plan of Treatment Upcoming Encounters Date Type Department Care Team (Late st Contact Info) Description 06/15/2025 1:00 PM EDT Office Visit [facility] [address] [phone] Santi Becker MD [address] [address] documented as of this encounter Visit Diagnoses Not on filedocumented in this encounter Care Teams Employee Representative Relationship Specialty Start Date End Date Andriy Scott [address] [place], [place] PCP - General Internal Medicine 12/15/20 documented as of this encounter
--- OUTSIDE RECORDS SUMMARY | 2024-12-29 11:41 | XMS_ITS | Encounter Summary ---
Author Organization [employer] Address [address] [facility] [address] [place] [address] Care Team Providers Care Transcriptionist Name Role Phone Andriy Scott MD Primary Care Prov ider Encounter Details Date Type Department Care Team ([facility] st Contact Info) Description 03/25/2023 Orders Only [facility] [address] [place], [place] [phone] Joann Patrick LPN Social History Tobacco Use [...] documented as of this encounter Care Teams Transcriptionist Relationship Specialty Start Date End Date WinklerAndriy Gonzalez MD [address] [place] [address] PCP - General Internal Medicine 04/05/20 documented as of this encounter
--- OUTSIDE RECORDS SUMMARY | 2024-12-29 11:41 | XMS_ITS | Encounter Summary ---
Author Organization [employer] Address [address] [facility] [address] [place] [address] Care Team Providers Care Water Valve Repairer Name Role Phone Andriy Scott MD Primary Care Prov ider Encounter Details Date Type Department Care Team ([facility] st Contact Info) Description 04/09/2023 Orders Only [facility] [address] [place], [place] [phone] Joann Patrick LPN Social History Tobacco Use [...] documented as of this encounter Care Teams Water Valve Repairer Relationship Specialty Start Date End Date WinklerAndriy Gonzalez MD [address] [place] [address] PCP - General Internal Medicine 04/05/20 documented as of this encounter
--- OUTSIDE RECORDS SUMMARY | 2024-12-29 11:41 | XMS_ITS | Encounter Summary ---
Author Organization [employer] [facility] Address [address] [facility] [address]t [place] [address] Care Team Providers Care Laborer General Name Role Phone Andriy Scott MD Primary [...] on filedocumented in this encounter Care Teams Laborer General Relationship Specialty Start Date End Date Andriy Scott MD [address] [place] [address] PCP - General Internal Medicine 04/05/20 documented as of this encounter
--- OUTSIDE RECORDS SUMMARY | 2024-12-29 11:41 | XMS_ITS | Data Portability ---
Author Organization [facility] [place] [employer] [place] Address [address] [place] [address] Care Team Providers Care Double End Production Grinder Name Role Phone HIM CCA OTHER [facility] OTHER [phone] HARTMANEZEQUIEL GONZALEZ Primary Care Provider Assessment Encounter [...] afterhours. Has cardiology visit this coming 12/02. [email or web address] Not available 11/29/2023 15:52:25 11/29/2024 11/29/2024 I provided real -time medical direction via phone for this encounter and was available for additional phone-based assistance as needed. I have reviewed and agree with the Assessment and Plan as documented by the Klystrom Tube Tester. Patient given the opportunity to ask questions. Our service contacted for an assessment of: Viral URI symptoms As per above, patient with approximately several days of viral URI symptoms. Denies fever or chills. Denies chest pain, shortness of breath, dyspnea on exertion. Positive nasal congestion and dry cough. Positive sick contacts. She tested herself for COVID this morning in his positive. Per vice president on the scene, vital signs are stable and patient is afebrile. Lungs clear. Patient with temp earlier in the day but afebrile currently. No increased work of breathing and no distress. Impression: COVID-19 Plan: Continue with qlqo-swj-hqhzopp medications to control symptoms. Red flags discussed [...] recorded. Lab BMP, serum or plasma 2023 [facility], [address] [place] [address], [id number], 16:15:58 Referral None recorded. Procedures None recorded. Surgeries None recorded. Imaging electrocard iogram 2023 [facility], [address] [place] [address], [phone], 16:15:59 Medication Orders Diflucan 150 mg tablet 2023 [facility], [address] [place] [address], [id number], 4 12:59:25 ketoconazol e 2 % topical cream 2023 [facility], [address] [place] [address], [id number], 4 12:59:25 nystatin 100,000 unit/gram topical powder 2023 024 [facility], [address] [place] [address], [place], [place], [id number], 4 12:59:25 Patient TargetsNo targets recorded. Patient InstructionsNo instructions recorded. Reason for Referral None Reported. Results Created Date Observation Date Name Description Value Unit Range Abnormal Flag Note LastModifiedBy Organization Detail LastModifiedTime 07/17/20 24 07/17/2024 BMP, serum or plasm a CRE 0.9 Not Available Main - [facility] [address], [address], 07/17/2024 16:13:32 07/17/20 24 07/17/2024 BMP, serum or plasm a GLU 113 Not Available [facility] [address], [address], 07/17/2024 16:13:32 07/17/20 24 07/17/2024 BMP, serum or plasm a K+ 3.9 Not Available [facility] - [facility] [address], [address], 07/17/2024 16:13:32 07/17/20 24 07/17/2024 BMP, serum or plasm a Na+ 142 Not Available [facility] [address], [address], 07/17/2024 16:13:32 07/17/20 24 07/17/2024 [email or web address] buckley am No observ ation record ed. [email or web address], [address], 07/17/2024 16:15:59 Result Notes None recorded. Procedures Surgical History None recorded. Imaging Results Imaging Date Name Status LastModified by Organization Details LastModified Time 07/17/2024 electrocardiogram completed [address], [address], 07/17/2024 16:15:59 Procedure Notes None recorded. Medical Equipment None Reported. Allergies Allergen ID Allergen Name Allergen Category Reaction Reaction Severity Criticality Documentation Date Start Date Code Code System Note Provider Name and Address Organization Details Recorded Time 1970 Product containin g penicilli n and antibioti c (product) medicatio n Not available Not available Not available 01/21/2023 85103 05 SNOMED Not Available [facility] - production 4 03:34:36 1971 amlodipin e medicatio n Not available Not available Not available 01/21/2023 97212 RxNorm Rhina Simons MD [address] [facility],[address], [place], [address], [facility] 3 12:44:51 1972 Adacel medicatio n Not available Not available Not available 01/21/2023 40209 8 RxNorm Rhina Simons MD [address] [place] [address],[address], [place], [address], [facility] 3 12:45:04 Medications Name Sig Start Date [...] [degF] 96 mm[Hg] 60 mm[Hg] Not Available [facility] - production 4 12:21:46 Date Recorded Oxygen saturation Oxygen saturation in Arterial blood by Pulse oximetry Heart rate Respiratory rate Body temperature Body weight Systolic blood pressure Diastolic blood pressure Provider Name and Address Organization Details Last Updated DateTime 4 98 % 98 % 78 /min 16 /min 98.4 [degF] 04354.4 96 g 132 mm[Hg] 62 mm[Hg] Not Available [facility] - [employer] 4 11:27:56 Date Recorded Body weight Body height Body temperature Oxygen saturation Oxygen saturation in Arterial blood by Pulse oximetry Respiratory rate Heart rate Systolic blood pressure Diastolic blood pressure Provider Name and Address Organization Details Last Updated DateTime 4 94489.3 12 g 152.4 cm 98.4 [degF] 97 % 97 % 10 /min 67 /min 104 mm[Hg] 62 mm[Hg] Not Available [facility] - production 4 16:06:51 Date Recorded Respiratory [...] 5 16 /min 84 /min 97.8 [degF] 09830.7 2 g 99 % 99 % 138 [...] 8066 Rhina Simons MD Main - [facility] [address] [place] [phone] 01/21/2023 12:33:47 01/23/2023 12:29:15 Paresthesia 62856019 R20.2 likely a combinatio n of neuropathy [...] 911 if symptoms worsen Thoracic back pain 26610 8004 M54.6 would benefit from imaging- r/o compressio n fx or hnp 10434 JALYN FLORES MD Main - [facility] [address] [place] [phone] 11/29/2023 12:21:25 11/30/2023 15:51:28 Low blood pressure 19328781 I95.9 48041 JOSS LIRA MD Main - [facility] [address] [place] [phone] 03/19/2024 11:27:48 03/19/2024 18:30:31 Candidal intertrigo [id number] B37.2 Evaluation in the field was performed by my vice president colleague, as noted above, I provided real-time direction and supervisio n for this visit. The evaluation revealed Hypertensi on, Diabetes, Heart Disease, Hypertensi on, COPD/Asthm a, Other with hx of candidal intertrigo x 2 prior. Reports rash and pruritis under her breasts and groin area . Pt reports that she is flying to [place] on 04/03 and her PCP had no appointmen t. Denies fever, chills, CP, SOB, N/V/D, UTI symptoms. VSSBG 100 this am per patient report Impression :Candidal intertrigo Plan:Diflu can 150 mg PO [id number] zole 2 % dailyNysta tin powder BID after the ketoconazo le is absorbed to keep the area dryPt advised re : Daily cleansing of intertrigi nous skin with a mild cleanser followed by drying of affected area with a hair boiler operator on a cool settingAer ation of affected area when feasibleUs e of absorbent material or clothing, such as cotton or bejarano wool, to separate skin in folds especially when in [place] Primary care, consider__ _ Dispositio n: We [...] BG >250, N/V or any other concerns. [id number] Dottie Clifford MD Main - [facility] [address] [place] [phone] 07/17/2024 16:06:35 07/17/2024 20:24:34 Dizziness 245037600 R42 As noted, we were called to see this patient regarding concerns of dizziness and hypotensio n. Evaluation in the field was performed by my vice president colleague, as noted above, I provided real-time [...] changes to consciousn ess, chest pain, dyspnea. 43016 Betzy Jackson MD Main - [facility] [address] [place] [phone] 11/29/2024 16:55:51 11/30/2024 00:23:38 COVID-19 [id number] U07.1 28111 JOSS LIRA MD Main - [facility] [address] [place] [phone] 12/03/2024 20:46:57 12/04/2024 12:55:39 Worried well 54193630 Z71.1 Evaluation in the field was performed by my vice president colleague, as noted above, I provided real-time [...] Johnston Member ID Guarantor Name 11/29/2023 1 [facility] - DOS ON OR AFTER 2023 - DUAL ELIGIBLE - PENITENTIARY OPTIONS AND ONE CARE (MEDICARE REPLACEMENT/ADV ANTAGE - HMO) Amee Hartman [id number] Amee Hartman 03/19/2024 1 [facility] [employer] [facility] - DOS ON OR AFTER 2023 - DUAL ELIGIBLE - PENITENTIARY OPTIONS AND ONE CARE (MEDICARE REPLACEMENT/ADV ANTAGE - HMO) Amee Hartman [id number] Amee Hartman 07/17/2024 1 [facility] [employer] - DOS ON OR AFTER 2023 - DUAL ELIGIBLE - PENITENTIARY OPTIONS AND ONE CARE (MEDICARE REPLACEMENT/ADV ANTAGE - HMO) Amee Hartman [id number] Amee Hartman 11/29/2024 1 [facility] [place] - DOS ON OR AFTER 2023 - DUAL ELIGIBLE - PENITENTIARY OPTIONS AND ONE CARE (MEDICARE REPLACEMENT/ADV ANTAGE - HMO) Amee Hartman [id number] Amee Hartman 12/03/2024 1 [facility] - DOS ON OR AFTER 2023 - DUAL ELIGIBLE - PENITENTIARY OPTIONS AND ONE CARE (MEDICARE REPLACEMENT/ADV ANTAGE - HMO) Amee Hartman [id number] Amee Hartman Notes Date Note Type Note [...] to be seen. pt does not speak/read Armenian, consent not sent at this time verified /address. Jessica BURDEN .................... .................... .................... .................... .................... .................... .................... . Klystrom Tube Tester Note From Paul Farrar: Encountered patient seated [...] with no present ST-segment elevation or depression. [facility] contacted: requested orthostatic vital signs be performed results, provided to [facility]. [facility] expresses reluctance at administering IV fluid, considering [...] of breath, or any other priority symptoms. Klystrom Tube Tester Allergies: Penicillin .................... .................... .................... .................... .................... .................... .................... . Disposition: Fulfilled JALYN FLORES MD [address] [place] [address],[address], [place], [address], [facility] 11/29/2023 15:52:35 03/19/2024 text/html HPI: Hx: Candidal Interigo Patient with increased redness and raw skin in groin and under breasts severe itch .................... .................... .................... .................... .................... .................... .................... . [facility] Nurse Triage Notes (Sujey Klein): Comments: HPI reviewed, no further questions .................... .................... .................... .................... .................... .................... .................... . Klystrom Tube Tester Note From Bartolome Reed: Pt co rash/raw skin under breasts and under belly lower abdomen. Pt sts has had before and was told it was yeast infection. Pt denies fever NVD cp or sob. Baseline vitals assessed. Rash assessed photos uploaded. [facility] contacted diflucan , cream, and nistatin powder called into pharmacy for delivery. Pt advised to follow up with pcp. Pt has appt march 30. Pt education on signs indicating the ER. Klystrom Tube Tester Allergies: Penicillin .................... .................... .................... .................... .................... .................... .................... . Disposition: Óscar LIRA MD [address] [facility],[address], [place], [address], [facility] 03/19/2024 11:43:58 07/17/2024 text/html CRC Nurse Triage Notes (Loly Phelps): Reason For Request: low BP Chief Complaints: Hypotension PMH: Hypertension, Diabetes, Heart Disease, COPD/Asthma Allergies: Penicillin Comments: Job Coach/Job Developer verified the member's name//address and phone number. [...] s/s and seek emergency treatment if needed. Klystrom Tube Tester Organization Information for Karen Calvert Business Legal Name: [employer]? Address: [address] [place] [address], Steel Handler: Jhon Steward MD CLIA No.: [id number] Klystrom Tube Tester POC Test Results from Karen Calvert iSTAT [...] .................... .................... .................... .................... .................... .................... . Klystrom Tube Tester Note From Karen Calvert: Sent to a [...] warm, dry; 12 lead ECG: uploaded to [facility]; Venous blood draw performed: Istat Chem8+ results: uploaded to [facility]. [facility] consulted and will send note to pt's PCP advising pt's Doxazosin dose be switched from AM to PM. Pt's medications come in blister packs, so prescription needs to change before med change goes into effect. Red flags discussed. Pt has no further questions. .................... .................... .................... .................... .................... .................... .................... . Disposition: Fulfilled Dottie Clifford MD [address] [facility],[address], [place], [address], [employer] [facility] [employer] 07/17/2024 17:31:03 11/29/2024 text/html CRC Nurse Triage [...] PMH: Hypertension, Coronary Artery Disease, COPD/Asthma Comments: Job Coach/Job Developer verified the Pt.'s name//address and phone number. [...] .................... .................... .................... .................... .................... .................... . Klystrom Tube Tester Note From Monico Avalos: This 79-year-old female [...] .................... .................... .................... .................... .................... .................... . [facility] Consulted: Betzy Jackson .................... .................... .................... .................... .................... .................... .................... . Disposition: Fulfilled Betzy Jackson MD [address] [facility],[address], [place], [address], [employer] [facility] [employer] 11/29/2024 16:58:19 12/03/2024 text/html CRC Nurse Triage Notes (Sujey Klein - RN): Reason For Request: Pt reporting low blood pressure 86/61 (approximation), feeling weak>pt reporting she was COVID positive on 11/28/24 Chief Complaints: Hypotension, Weakness PMH: Hypertension, Coronary Artery Disease, COPD/Asthma PMH Reviewed at 12/03/2024 - :41 Allergies Reviewed at 12/03/2024 - :41 Comments: Job Coach/Job Developer verified the member's name//address and phone number. Member Burundian speaking only, carpentry professional used. Member calling to report hypotension, most [...] .................... .................... .................... .................... .................... .................... . Klystrom Tube Tester Note From Bartolome Reed: Pt co low BP reading on home BP machine, 98-146 systolic. Pt denies headache , dizziness, NVD, cp, sob , abdominal pain or blurry vision. Baseline vitals assessed, WNL. [facility] contacted and advised pt that if BP continues to read low to take half dose of BP med. pt sts has appt with home health aide caregiver next week. Education provided on signs indicating the ER. Pt advised to follow up with pcp, .................... .................... .................... .................... .................... .................... .................... . [facility] Consulted: Joss Lira .................... .................... .................... .................... .................... .................... .................... . Disposition: Óscar LIRA MD [address] [facility],[address], [place], [address], [facility] 12/03/2024 22:27:39 OBGyn Episode No OBEpisode recorded.
--- OUTSIDE RECORDS SUMMARY | 2024-12-29 11:41 | XMS_ITS | Encounter Summary ---
Author Organization [employer] Address [address] [facility] 7t [place] [address] Care Team Providers Care Service Learning Coordinator Name Role Phone Andriy Scott MD Primary Care Prov ider Reason for Visit * Reason Comments Med Refill Encounter Details Date Type Department Care Team ([facility] st Contact Info) Description 05/17/2024 Refill [facility] [address] [place], [place] [phone] Andriy Scott MD [address] [place] [address] Type 2 diabetes mellitus with stage 3a chronic kidney disease, without long-term current use of insulin ([facility]) Social History Tobacco Use Types [...] disease, without long-term current use of insulin ([facility]) documented in this encounter Additional Health Concerns Assessment Noted Time PHQ-9 Depression Total Score: 0 02/22/20 23 1:22 PM EDT documented as of this encounter Care Teams Service Learning Coordinator Relationship Specialty Start Date End Date Andriy Scott MD [address] [place] [id number] PCP - General Internal Medicine 04/05/20 documented as of this encounter
--- OUTSIDE RECORDS SUMMARY | 2024-12-29 11:41 | XMS_ITS | Encounter Summary ---
Author Organization [facility] Address [address] [place] [address] Care Team Providers Care Air Cargo Specialist Supervisor Name Role Phone Andriy Scott Primary Care Provide r Encounter Details Date Type Department Care Team (Late Contact Info) Description 12/28/2024 Telephone Gastroenterology - [place] [address] [facility] [address] [place] [address] Hanh Kiser [place] Social History Tobacco Use Types Packs/Day Years [...] Encounters Date Type Department Care Team (Late Contact Info) Description 06/15/2025 1:00 PM EDT Office Visit [facility] [address] [phone] Santi Becker MD [address] [phone] documented as of this encounter Visit Diagnoses Not on filedocumented in this encounter Care Teams Air Cargo Specialist Supervisor Relationship Specialty Start Date End Date Andriy Scott [address] [place], [place] PCP - General Internal Medicine 12/15/20 documented as of this encounter
--- OUTSIDE RECORDS SUMMARY | 2024-12-29 11:41 | XMS_ITS | Encounter Summary ---
Author Organization [employer] Address [address] [facility] 7t [place] [address] Care Team Providers Care Candy Puller Name Role Phone Andriy Scott MD Primary Care Prov ider Encounter Details Date Type Department Care Team ([facility] Contact Info) Description 12/08/2024 8:30 AM EST Office Visit [facility] MED & PEDS [address] [place], [place] [phone] Andriy Scott MD [address] [place] [address] Nasal sore (Primary Dx); Type 2 diabetes mellitus without complication, without long-term current use of insulin ([facility]) Social History Tobacco Use Types Packs/Day Years [...] List Items Addressed This Visit Diabetes mellitus ([facility]) Relevant Orders POCT Glucose (Completed) Nasal sore [...] complication, without long-term current use of insulin ([facility]) documented in this encounter Results * POCT [...] complication, without long-term current use of insulin ([facility]) documented in this encounter Additional Health Concerns Assessment Noted Time PHQ-9 Depression Total Score: 0 02/22/20 23 1:22 PM EDT documented as of this encounter Care Teams Candy Puller Relationship Specialty Start Date End Date Andriy Scott MD [address] [place] [address] PCP - General Internal Medicine 04/05/20 documented as of this encounter
--- OUTSIDE RECORDS SUMMARY | 2024-12-29 11:41 | XMS_ITS | Encounter Summary ---
Author Organization [employer] Address [address] [facility] 7t [place] [address] Care Team Providers Care Helmet Coverer Name Role Phone Andriy Scott MD Primary [...] documented as of this encounter Care Teams Helmet Coverer Relationship Specialty Start Date End Date Andriy Scott MD [address] [place] [address] PCP - General Internal Medicine 04/05/20 documented as of this encounter
--- OUTSIDE RECORDS SUMMARY | 2024-12-29 11:41 | XMS_ITS | Encounter Summary ---
Author Organization [facility] Address [address] [place] [address] Care Team Providers Care Valve Inspector Name Role Phone Andriy Scott Primary Care Provide r Encounter Details Date Type Department Care Team (Late Contact Info) Description 12/28/2024 Telephone Gastroenterology - [place] [address] [facility] [address] [place] [address] Hanh Kiser [place] Social History [...] Description 06/15/2025 1:00 PM EDT Office Visit [facility] - [facility] [address] [phone] Santi Becker MD [address] [phone] documented as of this encounter Visit Diagnoses Not on filedocumented in this encounter Care Teams Valve Inspector Relationship Specialty Start Date End Date Andriy Scott [address] [place], [place] PCP - General Internal Medicine 12/15/20 documented as of this encounter
--- OUTSIDE RECORDS SUMMARY | 2024-12-29 11:41 | XMS_ITS | Encounter Summary ---
Author Organization [employer] Address [address] [facility] 7t [place] [address] Care Team Providers Care Electronic Masking System Operator Name Role Phone Andriy Scott MD Primary Care Prov ider Encounter Details Date Type Department Care Team ([facility] st Contact Info) Description 03/05/2024 Orders Only [facility] MED & PEDS [address] [place], [place] [phone] Andriy Scott MD [address] [place] [address] Type 2 diabetes mellitus with stage 3a chronic kidney disease, without long-term current use of insulin ([facility]) Social History Tobacco Use Types Packs/Day [...] use of insulin ([facility]) documented in this encounter Additional Health Concerns Assessment Noted Time PHQ-9 Depression Total Score: 0 02/22/20 23 1:22 PM EDT documented as of this encounter Care Teams Electronic Masking System Operator Relationship Specialty Start Date End Date Andriy Scott MD [address] [place] [address] PCP - General Internal Medicine 04/05/20 documented as of this encounter
--- OUTSIDE RECORDS SUMMARY | 2024-12-29 11:41 | XMS_ITS | Clinical Summary ---
Author Organization [facility] Address 100 [facility] 20 0 [place] [address] Phone Care Team Providers Care Simulation Specialist Name Role Phone Andriy Winkler Primary Care Provider [phone] Allergies Active Allergy Reactions Criticality Noted Date [...] Coronary atherosclerosis 05/18/2015 Overview (02/06/2021): Followed by [facility] Cardiology Dr.Robert Ward Abdominal pain 05/17/2015 [...] Care Team (Late st Contact Info) Description 01/23/2025 Orders Only [facility] [address] [place] [phone] Tyra EscobedoDEVANG [address] [facility] 204 [place] [address] Chronic kidney disease, stage 2 (mild); Hypertension; Anemia in chronic kidney disease 02/23/2025 10:30 AM EDT Office Visit [facility] [address] [facility] 204 [place] [address] Tyra EscobedoDEVANG [address] [facility] 204 [place] [address] Health Maintenance Due Date Last Done [...] AM EDT) Hemoglobin A1C 5.8(H) (4.0-5.6) % [facility] Comment: MONITORING: In known diabetic patients, hemoglobin A1c targets should be discussed with health care provider. DIAGNOSTIC USE: ??The [place] Diabetes Association (ADA) and the World Health [...] Supplement 1 Testing performed or reported by [facility], a Service of [facility], [address] [place] [address] Alessandro Lopez MD, Gas Pumper [facility]# [id number] Blood (Blood, Venous) 06/19/2023 9:50 AM EDT 06/19/2023 9:52 AM EDT us Zohaib De La Rosa MD LAB BLOOD ORDERABLES Final Re sult [facility] from Last 3 Months or Most Recently Relevant to Health Maintenance Insurance [address] [place] [id number] [facility] ([id number]) [place] [phone] [address] [place] [address] [facility] ([id number]) Care Teams Simulation Specialist Relationship Specialty Start Date End Date Andriy Winkler PCP - General Internal Medicine 03/08/21
--- OUTSIDE RECORDS SUMMARY | 2024-12-29 11:41 | XMS_ITS | Encounter Summary ---
Author Organization [employer] Address 75 [facility] 7t [place] [address] Care Team Providers Care Substation Operator Chief Name Role Phone Andriy Scott MD Primary Care Prov ider Reason for Visit * Reason Comments Med Refill Encounter Details Date Type Department Care Team ([facility] st Contact Info) Description 12/22/2024 Refill [facility] CHC MED & PEDS 505 [place], [place] [phone] Andriy Scott MD 505 [place] [address] Mixed hyperlipidemia; Osteopenia of lumbar spine Social History Tobacco Use Types Packs/Day Years [...] this encounter Visit Diagnoses Diagnosis Mixed hyperlipidemia Osteopenia of lumbar spine documented in this encounter Additional Health Concerns Assessment Noted Time PHQ-9 Depression Total Score: 0 02/22/20 23 1:22 PM EDT documented as of this encounter Care Teams Substation Operator Chief Relationship Specialty Start Date End Date Andriy Scott MD [address] [place] [address] PCP - General Internal Medicine 04/05/20 documented as of this encounter
--- OUTSIDE RECORDS SUMMARY | 2024-12-29 11:41 | XMS_ITS | Encounter Summary ---
Author Organization [employer] Address 75 [facility] 7t [place] [address] Care Team Providers Care Assembler Sandal Parts Name Role Phone Andriy Scott MD Primary Care Prov ider Reason for Visit * Reason Onset Date Comments Med Refill 11/30/2024 Encounter Details Date Type Department Care Team (Late st Contact Info) Description 11/30/2024 Refill [facility] CHC MED & PEDS 505 [place] [address] Andriy Scott MD 505 [place] [address] Non-seasonal allergic rhinitis due to fungal spores [...] MCG/ACT nasal spray To be sent to: [facility] [place] - [facility] Front documented in this encounter Plan of [...] documented as of this encounter Care Teams Assembler Sandal Parts Relationship Specialty Start Date End Date Andriy Scott MD 505 [place] [address] PCP - General Internal Medicine 04/05/20 documented as of this encounter
--- OUTSIDE RECORDS SUMMARY | 2024-12-29 11:41 | XMS_ITS | Encounter Summary ---
Author Organization [facility] Address [address] [place] [address] Care Team Providers Care Reconciliation Clerk Name Role Phone Andriy Scott Primary Care Provide r Reason for Visit * Reason Onset Date Comments vascular doctor 12/29/2024 Vascular doctor Encounter Details Date Type Department Care Team (Late st Contact Info) Description 12/29/2024 Telephone [facility] - [facility] [address] [facility] [address] [place] [phone] Santi Becker MD [address] [place] [address] vascular doctor (Vascular doctor ) Social History Tobacco Use Types Packs/Day Years [...] as of this encounter Progress Notes * Zehra Berrios - 12/29/2024 10:39 AM EST Pt` daughter called , Maira . Amee was in and out of [facility] last week. She was discharged , then went back . She was seen by a gastro doctor . They did a CAT scan of the ovaries . She has been weakon one day, normal the next, then weak again. They suggested she see a Vascular doctor because of ablockage. Iliac artery right side . Maira would like Dr. Zazueta`s input on all of this Zehram documented in this encounter Plan of Treatment Upcoming Encounters Date Type Department Care Team (Late st Contact Info) Description 06/15/2025 1:00 PM EDT Office Visit [facility] [address] [address] Santi Becker MD [address] [address] documented as of this encounter Visit Diagnoses Not on filedocumented in this encounter Care Teams Reconciliation Clerk Relationship Specialty Start Date End Date Andriy Scott [address] [place], [place] PCP - General Internal Medicine 12/15/20 documented as of this encounter
--- OUTSIDE RECORDS SUMMARY | 2024-12-29 11:41 | XMS_ITS | Clinical Summary ---
Author Organization [employer] Address 75 [facility] 7t [place] [address] Care Team Providers Care Policy Analyst Name Role Phone Andriy Scott MD Primary [...] by MD. 30 patch 1 023 Active ALPRAZolam (Xanax) 0.5 MG tablet TAKE ONE TABLET ONE-HALF HOUR BEFORE travel Active ketotifen (Zaditor) 0.025 % ophthalmic solution Administer 1 drop into both eyes 2 times daily. As needed for allergy Active cholecalciferol (Vitamin D-3) 25 MCG tablet TAKE ONE TABLET EVERY MORNING 90 tablet 3 Active nitroglycerin (Nitrostat) 0.[address] 1 tablet (0.4 mg) under the tongue every 5 (five) minutes if needed for chest pain. 30 tablet 024 2024 Active doxazosin (Cardura) 4 MG tabletIndication s:Primary hypertension TAKE ONE TABLET EVERY MORNING 30 tablet 8 Active Multiple Vitamin (Multivitamin) tabletIndication s:Primary hypertension TAKE ONE TABLET EVERY MORNING 30 tablet 8 Active glucose blood (FREESTYLE LITE) test stripIndications :Type 2 diabetes mellitus without complication, without long-term current use of insulin ([facility]) TEST BLOOD SUGAR TWICE DAILY 100 strip 11 Active cetirizine (ZyrTEC) 10 MG tablet TAKE ONE TABLET EVERY NIGHT AT BEDTIME NEEDED 90 tablet 1 Active TRUEplus Lancets 33G misc TEST BLOOD SUGAR TWICE DAILY 100 each 11 Active Trulicity 0.75 MG/0.5ML solution auto-injectorInd ications:Type 2 diabetes mellitus with stage 3a chronic kidney disease, without long-term current use of insulin ([facility]) INJECT ONE PEN (=0.75MG) SUBCUTANEOUSLY ONCE A WEEK DIRECTED 2 mL 3 Active ferrous gluconate (Fergon) 324 (37.5 Fe) MG tablet TAKE ONE TABLET EVERY OTHER DAY IN THE MORNING 60 tablet 1 Active isosorbide mononitrate ER (Imdur) 30 MG 24 hr tablet TAKE ONE TABLET EVERY MORNING 90 tablet Active montelukast (Singulair) 10 MG tabletIndication s:Non-seasonal allergic rhinitis due to fungal spores TAKE ONE TABLET EVERY NIGHT AT BEDTIME 90 tablet Active fluticasone (Flonase) 50 MCG/ACT nasal sprayIndications :Non-seasonal allergic rhinitis due to fungal spores Administer 1 spray into each nostril Once per day. Shake gently. Before first use, prime pump. After use, clean tip and replace cap. 16 g 11 025 2025 Active sodium chloride (Levy Nasal [place]) 0.65 % nasal spray Administer 1 spray into each nostril if needed for congestion. 30 mL 025 2025 Active spironolactone (Aldactone) 25 MG tabletIndication s:Primary hypertension TAKE ONE-HALF TABLET EVERY MORNING 15 tablet 3 Active Asmanex, 120 Metered Doses, 220 MCG/ACT aerosol powder INHALE 1 PUFF TWICE DAILY. RINSE MOUTH AFTER USE 1 each 2 Active Aspirin Low Dose 81 MG chewable tablet CHEW ONE TABLET EVERY MORNING 90 tablet Active rosuvastatin (Crestor) 20 MG tabletIndication s:Mixed hyperlipidemia TAKE ONE TABLET EVERY NIGHT AT BEDTIME 90 tablet 025 Active Calcium Carb-Cholecalcif jean 500-10 MG-MCG chewable tabletIndication s:Osteopenia of lumbar spine CHEW ONE TABLET EVERY MORNING 90 tablet 025 Active valsartan (Diovan) 40 MG tablet Take 1 tablet by mouth in the morning. Active fluticasone (Flonase) 50 MCG/ACT nasal sprayIndications :Non-seasonal allergic rhinitis due to fungal spores Administer 1 spray into each nostril in the morning. Shake gently. Before first use, prime pump. After use, clean tip and replace cap. 16 g 023 2024 Discontinued(R eorder (will not trigger notification to Pharmacy)) Calcium Carb-Cholecalcif jean 500-10 MG-MCG chewable tabletIndication s:Osteopenia of lumbar spine TAKE ONE TABLET EVERY MORNING 90 tablet 3 024 2024 Discontinued Trulicity 0.75 MG/0.5ML solution pen-injectorIndi cations:Type 2 diabetes mellitus with stage 3a chronic kidney disease, without long-term current use of insulin ([facility]) INJECT ONE PEN (=0.75MG) SUBCUTANEOUSLY ONCE A WEEK DIRECTED 2 mL 5 024 2024 Discontinued(D uplicate order (will not trigger notification to Pharmacy)) Aspirin Low Dose 81 MG chewable tablet CHEW ONE TABLET EVERY MORNING 90 tablet 1 024 2024 Discontinued rosuvastatin (Crestor) 20 MG tabletIndication s:Mixed hyperlipidemia TAKE ONE TABLET EVERY NIGHT AT BEDTIME 90 tablet 1 024 2024 Discontinued valsartan (Diovan) 160 MG tablet TAKE 1 TABLET EVERY MORNING 90 tablet 1 024 2024 Discontinued(M ed list cleanup (will not trigger notification to Pharmacy)) Omeprazole 20 MG tablet delayed-release Take 20 mg by mouth 2 times daily. 28 tablet 024 2024 Discontinued(M ed list cleanup (will not trigger notification to Pharmacy)) spironolactone (Aldactone) 25 MG tabletIndication s:Primary hypertension TAKE ONE-HALF TABLET EVERY MORNING 15 tablet 3 024 2024 Discontinued Mometasone Furoate (Asmanex, 120 Metered Doses,) 220 MCG/ACT aerosol powder Inhale 1 puff 2 times daily. 60 each 2 024 2024 Discontinued mupirocin (Bactroban) 2 % ointment Apply [...] if not improving Asthma 11/30/2024 CAD in [place] artery 11/30/2024 Class 2 obesity 11/30/2024 Chronic [...] kidney 02/06/2021 Coronary artery disease invo lving [place] heart without angina pectoris 12/15/2020 Overview (11/30/2024): [...] Coronary atherosclerosis 05/18/2015 Overview (07/09/2023): Followed by [facility] Cardiology Dr.Robert Ward Followed by [facility] Cardiology Dr.Robert Ward Assessment & Plan [...] Encounters Date Type Department Care Team Description 12/29/2024 9:45 AM EST Office Visit [facility] MED & PEDS [address] [place], [place] [phone] Andriy Scott MD Other fatigue (Primary Dx); Type 2 diabetes mellitus without complication, without long-term current use of insulin ([facility]); Vitamin D deficiency 12/29/2024 Travel 12/23/2024 Orders Only [facility] [employer] [address] [place], [place] [phone] Provider, MD Karen 12/22/2024 Refill [facility] CHC MED & PEDS [address] [place] [address] Andriy Scott MD Mixed hyperlipidemia; Osteopenia of lumbar spine 12/19/2024 Refill [facility] MED & PEDS [address] [place] [address] Andriy Scott MD Primary hypertension 12/08/2024 8:30 AM EST Office Visit [facility] P[facility] [address] [place] [address] Andriy Scott MD Nasal sore (Primary Dx); Type 2 diabetes mellitus without complication, without long-term current use of insulin ([facility]) 12/08/2024 Travel 12/07/2024 Telephone [facility] P[facility] [address] [place] [address] Anrdiy Scott MD Nurse Triage 11/30/2024 Refill [facility] MED & P[facility] [address] [place] [address] Andriy Scott MD Non-seasonal allergic rhinitis due to fungal spores 11/21/2024 Refill [facility] P[facility] [address] [place] [address] Andriy Scott MD Non-seasonal allergic rhinitis due to fungal spores from Last 3 Months Immunizations Name Administration [...] Sign Reading Time Taken Comments Blood Pressure 116/67 12/29/2024 10:01 AM EST Pulse 72 12/29/2024 10:01 AM EST Temperature 36.4 ??C (97.6 ??F) 12/29/2024 10:[address] Respiratory Rate 16 12/29/2024 10:01 AM EST Oxygen Saturation 97% 12/29/2024 10:01 AM EST Inhaled Oxygen Concentration - - Weight 71.2 kg (157 lb) 12/29/2024 10:01 AM EST Height 142.2 cm (4' 8 ) 12/29/2024 10:01 AM EST Body Mass Index 35.2 12/29/2024 10:01 AM EST Plan of Treatment Health Maintenance Due Date Last Done Comments Eye Exam 1954 Alcohol/Substance Use Screening 1956 Pneumococcal Vaccine: 50+ Years (1 of 2 - PCV) 1963 RSV Patients and Patients Aged 60 years or older (1 - 1-dose 75+ series) 2019 Dental Oral Exam 02/07/2024 08/08/2023, 01/2022, 01/03/2021, Additional history exists Dental Prophylaxis 02/07/2024 08/08/2023, 0 07/10/2022, 12/17/2019, Additional history exists Depression Screening 02/22/2024 02/21/2023, 02/22/20 COVID-19 Vaccine ( season) 2024 10/30/2021, 04/10/2021, 03/20/2021 Influenza Vaccine (#1) 2024 Dental X-Ray: Bitewings 08/09/2024 08/08/20, 06/27/2022, 01/03/2021, Additional history exists Diabetes: Foot Exam 11/05/2024 11/05/2023, 11/05/2023, 11/05/2023, Additional history exists SDOH Screening 01/02/2025 01/02/2024 Lipid Panel 01/10/2025 01/10/2024, 05/0 01/2023, 08/03/2022, Additional history exists Tobacco Screening 06/05/2025 06/05/2024 Diabetes: Hemoglobin A1C 06/28/2025 025, 09/14/2024, 03/30/2024, Additional history exists Dental X-Ray: Full Mouth 08/09/2026 08/08/2023, 02/24 [...] Date/Time Associated Diagnosis Comments POCT GLUCOSE Routine 12/29/2024 10:03 AM EST Type 2 diabetes mellitus without complication, without long-term current use of insulin ([facility]) POCT GLYCATED HEMOGLOBIN, TOTAL Routine 12/29/2024 10:02 AM EST Type 2 diabetes mellitus without complication, without long-term current use of insulin ([facility]) CT ABDOMEN PELVIS PRONE WO CONTRAST Routine 12/18/2024 12:49 PM EST POCT GLUCOSE Routine 12/08/2024 8:54 AM EST Type 2 diabetes mellitus without complication, without long-term current use of insulin ([facility]) LIPID PANEL, STANDARD Routine 01/10/2024 8:24 AM EST Type 2 diabetes mellitus without complication, without long-term current use of insulin ([facility]) PROPHYLAXIS - ADULT Routine 08/08/2023 1 1:00 AM EDT DIAGNOSTIC - DIAGNOSTIC IMAGING - INTRAORAL - COMPREHENSIVE SERIES OF RADIOGRAPHIC IMAGES Routine 08/08/2023 11:00 AM EDT PERIODIC ORAL EVALUATION - ESTABLISHED PATIENT Routine 08/08/2023 11:00 AM EDT from Last 3 Months or Most Recently Relevant to Health Maintenance Results * POCT glucose manually resulted (12/29/2024 10:03 AM EST) Only the most recent of2 resultswithin the time period is included. Pathologist [facility] Glucose Blood, POC 157 60 - 200 mg/dL QC Media Lot # Comment:[id number] Lot# Expiration Date Comment:03/02/2025 Blood Capillary blood specimen / Unknown 12/29/2024 10:03 AM EST Andriy Hartman MD POINT OF CARE TEST ENTER/EDIT ORDERABLES Final Result * POCT A1C (12/29/2024 10:02 AM EST) Hemoglobin A1C 5.7 4.0 - 6.0 % QC Media Lot # Comment:[id number] Lot# Expiration Date Comment:09/11/2026 Blood 12/29/2024 10:0 2 AM EST Andriy Hartman MD POINT OF CARE TEST ENTER/EDIT ORDERABLES Final Result * CT Abdomen Pelvis Prone w/o Contrast (12/18/2024 12:49 PM EST) Anatomical Region Laterality Modality Computed Tomogra phy Historical Provider IMG CT PROCEDURES Final R esult * Lipid Panel, Standard (01/10/2024 8:24 AM EST) Triglycerides 76 <150 mg/dL [facility] Comment:Desirable Triglyceri de: less than 150 mg/dLBorderline High Triglyceride 150-199 mg/dLHigh Triglyceride: 200-499 mg/dLVery High Triglyceride: greater than or equal to 5OO mg/dL Cholesterol 125 <200 mg/dL [facility] Comment:Desirable Cholestero l: less than 200 mg/dLBorderline High Cholesterol: 200-239 mg/dLHigh Cholesterol: greater than 239 mg/dL LDL Cholesterol Calculated 63 <100 mg/dL [facility] Comment:Desirable LDL: less than 100 mg/dLNear Optimal/Above Optimal LDL: 110- 129 mg/dLBorderline High LDL: 130-159 mg/dLHigh LDL: 160-189 mg/dLVery High LDL: greater than or equal to 190 mg/dL HDL Cholesterol 47 >40 mg/dL [facility] Comment:Desirable HDL: great er than 40 mg/dL Note: This HDL assay may give artificially low results in patients with liver disease. Blood Venous blood specimen / Unknown 01/10/2024 8:24 AM EST 01/10/2024 12:30 PM EST Andriy Hartman MD LAB BLOOD ORDERABL ES Final Result [facility] [address] [place] [phone] from Last 3 Months or Most Recently Relevant to Health Maintenance Insurance [facility] Care Teams Policy Analyst Relationship Specialty Start Date End Date WinklerAndriy Hebert MD [address] [place] [id number] PCP - General Internal Medicine 04/05/20
--- OUTSIDE RECORDS SUMMARY | 2024-12-29 11:41 | XMS_ITS | Encounter Summary ---
Author Organization [employer] Address 75 [facility] 7t [place] [address] Care Team Providers Care Driver Courier Name Role Phone Andriy Scott MD Primary Care Prov ider Encounter Details Date Type Department Care Team ([facility] st Contact Info) Description 04/06/2024 Orders Only [facility] CHC MED & PEDS [address] [place], [place] [phone] Andriy Scott MD 505 [place] [address] Social History Tobacco Use Types Packs/Day Years [...] documented as of this encounter Care Teams Driver Courier Relationship Specialty Start Date End Date Andriy Scott MD [address] [place] [phone] PCP - General Internal Medicine 04/05/20 documented as of this encounter
--- OUTSIDE RECORDS SUMMARY | 2024-12-29 11:41 | XMS_ITS | Encounter Summary ---
Author Organization [employer] Address [address] [facility] 7t [place] [address] Care Team Providers Care Trainmaster Name Role Phone Andriy Scott MD Primary Care Prov ider Reason for Visit * Reason Onset Date Comments Nurse Triage 12/07/2024 Encounter Details Date Type Department Care Team ([facility] st Contact Info) Description 12/07/2024 Telephone [facility] CHC MED & PEDS [address] [place] [address] Andriy Scott MD 505 [place] [address] Nurse Triage Social History Tobacco Use Types [...] 12/07/2024 10:37 AM EST [place] [employer] [place] [id number], unable to continue due to site safety representative having computer problem. Ended call. Triage call [place] [employer] [place] [id number], Jacki. Pt reports having Covid 11/28/24 and [...] documented as of this encounter Care Teams Trainmaster Relationship Specialty Start Date End Date Andriy Scott MD [address] [place] [id number] PCP - General Internal Medicine 04/05/20 documented as of this encounter
--- OUTSIDE RECORDS SUMMARY | 2024-12-29 11:41 | XMS_ITS | Encounter Summary ---
Author Organization [employer] Address 75 [facility] 7t [place] [address] Care Team Providers Care Drywall Stripper Helper Name Role Phone Andriy Scott MD Primary Care Prov ider Reason for Visit * Reason Comments Med Refill Encounter Details Date Type Department Care Team ([facility] st Contact Info) Description 12/19/2024 Refill [facility] CHC MED & PEDS 505 [place], [place] [phone] Andriy Scott MD 505 [place] [address] Primary hypertension Social History Tobacco Use Types [...] documented as of this encounter Care Teams Drywall Stripper Helper Relationship Specialty Start Date End Date Andriy Scott MD [address] [place] [id number] PCP - General Internal Medicine 04/05/20 documented as of this encounter
--- OUTSIDE RECORDS SUMMARY | 2024-12-29 11:41 | XMS_ITS | Encounter Summary ---
Author Organization [employer] Address 75 [facility] 7t [place] [address] Care Team Providers Care Treating Plant Supervisor Name Role Phone Andriy Scott MD Primary Care Prov ider Encounter Details Date Type Department Care Team (Latest Contact Info) Description 12/29/2024 Travel Social History Tobacco Use Types Packs/Day [...] documented as of this encounter Care Teams Treating Plant Supervisor Relationship Specialty Start Date End Date Andriy Scott MD [address] [place] [phone] PCP - General Internal Medicine 04/05/20 documented as of this encounter
--- OUTSIDE RECORDS SUMMARY | 2024-12-29 11:41 | XMS_ITS | Encounter Summary ---
Author Organization [facility] Address [address] [facility] 200 [place] [address] Phone Care Team Providers Care Steward/Stewardess Second Class Name Role Phone Andriy Winkler Primary Care Provider Encounter Details Date Type Department Care Team (Late st Contact Info) Description 06/30/2024 Office Communication [facility] [address] [facility] 200 [place] [address] Tyra Escobedo ARNP [address] [address] Social History Tobacco Use Types [...] [facility] [address] [facility] 200 [place] [address] Tyra Escobedo ARNP [address] [facility] 204 [place] [address] Chronic kidney disease, stage 2 (mild); Hypertension; Anemia in chronic kidney disease 02/23/2025 10:30 AM EDT Office [facility] [address] [facility] 204 [place] [address] Tyra Escobedo ARNP [address] [place] [phone] documented as of this encounter Visit Diagnoses Not on filedocumented in this encounter Care Teams Steward/Stewardess Second Class Relationship Specialty Start Date End Date Andriy Winkler PCP - General Internal Medicine 03/08/21 documented as of this encounter
--- OUTSIDE RECORDS SUMMARY | 2024-12-29 11:41 | XMS_ITS | Encounter Summary ---
Author Organization [employer] Address [address] [facility] 7t [place] [address] Care Team Providers Care Netting Inspector Name Role Phone Andriy Scott MD Primary Care Prov ider Reason for Visit * Reason Comments [place] [facility] [place]24 notes in chart Encounter Details Date Type Department Care Team ([facility] Contact Info) Description 12/29/2024 9:45 AM EST Office Visit [facility] [address] [place] [address] Andriy Scott MD [address] [place], [place] [phone] Other fatigue (Primary Dx); Type 2 diabetes mellitus without complication, without long-term current use of insulin ([facility]); Vitamin D deficiency Social History Tobacco Use Types Packs/Day Years [...] Mass Index 35.2 12/29/2024 10:01 AM EST documented in this encounter Plan of Treatment Scheduled Orders Name Type Priority Associated Diagnoses Orde r Schedule TSH W/Reflex to FT4 Lab Routine Other fatigue Expected: 12/29/2024 (Approximate), Expires: 12/29/2025 Iron And Total Iron Binding Capacity Lab Routine Other fatigue Expected: 12/29/2024, Expires: 12/29/2025 Vitamin B12 (Cobalamin) and Folate Panel, Serum Lab Routine Other fatigue Expected: 12/29/2024 (Approximate), Expires: 12/29/2025 Vitamin D, 25-Hydroxy, Total, Immunoassay Lab Routine Vitamin D deficiency Expected: 12/29/2024 (Approximate), Expires: 12/29/2025 documented as of this encounter Goals Goal [...] complication, without long-term current use of insulin ([facility]) POCT GLYCATED HEMOGLOBIN, TOTAL Routine 12/29/2024 10:02 AM EST Type 2 diabetes mellitus without complication, without long-term current use of insulin ([facility]) documented in this encounter Results * POCT glucose manually resulted (12/29/2024 10:03 AM EST) Glucose Blood, POC 157 60 - 200 mg/dL QC Media Lot # Comment:[id number] Lot# Expiration Date Comment:03/02/2025 Blood Capillary blood specimen / Unknown 12/29/2024 10:03 AM EST Andriy Hartman MD POINT OF CARE TEST ENTER/EDIT ORDERABLES Final Result * POCT A1C (12/29/2024 10:02 AM EST) Hemoglobin A1C 5.7 4.0 - 6.0 % QC Media Lot # Comment:[id number] Lot# Expiration Date Comment:09/11/2026 Blood 12/29/2024 10:0 2 AM EST Andriy Hartman MD POINT OF CARE TEST ENTER/EDIT ORDERABLES Final Result documented in this encounter Visit Diagnoses Diagnosis Other fatigue- Primary Type 2 diabetes mellitus without complication, without long-term current use of insulin ([facility]) Vitamin D deficiency documented in this encounter Additional Health Concerns Assessment Noted Time PHQ-9 Depression Total Score: 0 02/22/20 23 1:22 PM EDT documented as of this encounter Care Teams Netting Inspector Relationship Specialty Start Date End Date Andriy Scott MD [address] [place] [id number] PCP - General Internal Medicine 04/05/20 documented as of this encounter
--- OUTSIDE RECORDS SUMMARY | 2024-12-29 11:41 | XMS_ITS | Clinical Summary ---
Author Organization [address] [place] [address] [place] [phone] Phone Care Team Providers Care Playground Supervisor Name Role Phone Andriy Scott Primary [...] mg SL tabletIndications :Coronary artery disease involving cahto coronary artery of cahto heart without angina pectoris Place 1 tablet [...] lipid control. Coronary artery disease invo lving cahto heart without angina pectoris 12/15/2020 Overview (09/01/2024): [...] Date Type Department Care Team Description 12/29/2024 Telephone [facility] - [facility] [address] [facility] [address] [place] [address] Santi Becker MD vascular doctor (Vascular doctor ) 12/28/2024 Telephone Gastroenterology [facility] [address] [facility] 175 [facility] [address] [place] [address] Hanh Kiser MA 12/28/2024 Telephone Gastroenterology - [place] [address] [facility] [address] [facility] [address] [place] [address] Hanh Kiser MA 12/22/2024 Telephone [facility] - [facility] [address] [facility] [address] [place] [address] Santi Becker MD admitted 12/18/2024 10:12 AM EST - 12/18/2024 11:59 PM EST Hospital Encounter [facility] CT Scan [address] [place] [id number] Diverticulosis of intestine, part unspecified, without perforation or abscess without bleeding; Left lower quadrant pain Discharge Disposition: Home or Self Care 12/15/2024 10:40 AM EST Office Visit [facility] - [facility] [address] 300 [facility] [address] [place] [address] Mary Jett NP Coronary artery disease involving cahto coronary artery of cahto heart without angina pectoris (Primary Dx); Mixed hyperlipidemia; Primary hypertension; Class 3 severe obesity due to excess calories with serious comorbidity and body mass index (BMI) of 40.0 to 44.9 in adult ([facility]); PAD (peripheral artery disease) ([facility]) 11/09/2024 Telephone [facility]astroenterology - [place] [address] [facility] [address] [place] [address] abd and pelvis ([facility] auth # [id number] valid 10/30/24-02/28/25 [facility] - order sent to [facility] they will call pt to schedule appt) 10/13/2024 10:00 AM EST Ancillary Procedure [facility] [address] [place] [phone] Primary hypertension; Fatigue, unspecified type; Coronary artery disease involving cahto heart without angina pectoris, unspecified vessel or lesion type 10/02/2024 Telephone [facility] [address] [place] [phone] Mary Jett NP Testing (Auth CTA Head/Neck) 10/01/2024 Telephone Gastroenterology [facility] [address] [facility] [address] [place] [phone] Shannon Ceron PA PRIOR AUTHORIZATION (CT-scan of [...] Description 06/15/2025 1:00 PM EDT Office Visit [facility] [address] [phone] Santi Becker MD [address] [address] Health Maintenance Due Date Last Done Comments [...] Date/Time Associated Diagnosis Comments CT ABDOMEN PELVIS WO CONTRAST Routine 12/18/2024 10:23 AM EST Diverticulosis of intestine, part unspecified, without perforation or abscess without bleeding Left lower quadrant pain TRANSTHORACIC ECHOCARDIOGRAM (TTE) COMPLETE Routine 10/13/2024 10:39 AM EST Primary hypertension Fatigue, unspecified type Coronary artery disease involving cahto heart without angina pectoris, unspecified vessel or lesion type HM ANNUAL BMP BLOOD TEST Routine 03/17/2019 from Last 3 Months or Most Recently Relevant to Health Maintenance Results * CT Abdomen Pelvis wo Contrast (12/18/2024 10:23 AM EST) Anatomical Region Laterality Modality Body Computed Tomogra phy 12/23/2024 9:21 AM EST Impressions 12/23/2024 9:35 AM EST No acute findings in the abdomen/pelvis. Colonic diverticulosis without evidence of acute diverticulitis. ??No abscess or free air. -------- FINAL REPORT -------- Dictated By: MICHAEL LOCKETT Dictated Date: 12/23/2024 09:21 ET Assigned Physician: MICHAEL LOCKETT Reviewed and Electronically Signed By: MICHAEL LOCKETT Signed Date: 12/23/2024 09:35 ET Workstation ID: [id number] Transcribed By: Self Edit Transcribed Date: 12/23/2024 09:21 ET Narrative 12/23/2024 9:35 AM EST PROCEDURE: CT abdomen/pelvis INDICATION: Pain TECHNIQUE: CT of the abdomen and pelvis without contrast. Multiplanar reformats. The examination was performed utilizing dose reduction techniques. ??Total DLP 982 COMPARISON: ??07/11/2020 FINDINGS: ?? LOWER THORAX: Bibasilar atelectasis. ??Coronary artery calcifications. HEPATOBILIARY: No focal liver lesions. No cholelithiasis or biliary duct dilatation. SPLEEN: No splenomegaly. PANCREAS: No focal mass or ductal dilatation. ADRENALS: No nodules. KIDNEYS/URETERS: Punctate nonobstructive left lower pole renal calculus. ??No ureteral calculi or hydronephrosis. PELVIC ORGANS/BLADDER: Hysterectomy. ??Bladder is normal. PERITONEUM / RETROPERITONEUM: No ascites or free air. No retroperitoneal lymphadenopathy. VESSELS: Scattered atherosclerotic calcifications throughout the aorta and its major branches. No aneurysm. ??Significant stenosis at the origin of the right common iliac artery secondary to calcified plaque. GI TRACT: Colonic diverticulosis. ??No bowel wall thickening or surrounding inflammation. ??Normal appendix. ??No bowel obstruction BONES AND SOFT TISSUES: Small fat-containing periumbilical hernia. ??Degenerative changes seen throughout the bones. Procedure Note Michael Lockett MD - 12/23/2024 PROCEDURE: CT abdomen/pelvis INDICATION: Pain TECHNIQUE: CT of the abdomen and pelvis without contrast. Multiplanarreformats. The examination was performed utilizing dose reductiontechniques. Total DLP 982 COMPARISON: 07/11/2020 FINDINGS: LOWER THORAX: Bibasilar atelectasis. Coronary artery calcifications. HEPATOBILIARY: No focal liver lesions. No cholelithiasis or biliary ductdilatation. SPLEEN: No splenomegaly. PANCREAS: No focal mass or ductal dilatation. ADRENALS: No nodules. KIDNEYS/URETERS: Punctate nonobstructive left lower pole renal calculus.No ureteral calculi or hydronephrosis. PELVIC ORGANS/BLADDER: Hysterectomy. Bladder is normal. PERITONEUM / RETROPERITONEUM: No ascites or free air. No retroperitoneallymphadenopathy. VESSELS: Scattered atherosclerotic calcifications throughout the aorta andits major branches. No aneurysm. Significant stenosis at the origin ofthe right common iliac artery secondary to calcified plaque. GI TRACT: Colonic diverticulosis. No bowel wall thickening or surroundinginflammation. Normal appendix. No bowel obstruction BONES AND SOFT TISSUES: Small fat-containing periumbilical hernia.Degenerative changes seen throughout the bones. IMPRESSION: No acute findings in the abdomen/pelvis. Colonic diverticulosis without evidence of acute diverticulitis. Noabscess or free air. -------- FINAL REPORT -------- Dictated By: MICHAEL LOCKETT Dictated Date: 12/23/2024 09:21 ET Assigned Physician: MICHAEL LOCKETT Reviewed and Electronically Signed By: MICHAEL LOCKETT Signed Date: 12/23/2024 09:35 ET Workstation ID: [id number] Transcribed By: Self Edit Transcribed Date: 12/23/2024 09:21 ET Shannon IGNACIO IMFaviola CT PROCEDURES * (ABNORMAL) TRANSTHORACIC ECHOCARDIOGRAM (TTE) COMPLETE (10/13/2024 10:39 AM EST) Left Atrium Minor [place] 5.0 cm CV PACS Left Atrium Major [place] 5.6 cm CV PACS LA Area Sys [...] 1.15 cm2/m2 CV PACS GÓMEZ Index (Pk [place]) 1.27 cm2/m2 CV PACS Ascending Aorta Index [...] ventricular wall motion is normal. Mary Jett BARREL BURNER CV ECHO PROCE LYRIC * Annual BMP Blood Test (03/17/2019) Annual BMP Blood Test Abstracted Historical Provider MD DEIDRA Doran from Last 3 Months or Most Recently Relevant to Health Maintenance Care Teams Playground Supervisor Relationship Specialty Start Date End Date WinklerAndriy Gonzalez [address] [place], [place] PCP - General Internal Medicine 12/15/20
--- OUTSIDE RECORDS SUMMARY | 2024-12-29 11:41 | XMS_ITS | Encounter Summary ---
Author Organization [facility] Address [address] [place] [address] Care Team Providers Care Bank Vault Attendant Name Role Phone Andriy Scott Primary Care Provide r Reason for Visit * Reason Comments Follow-up Encounter Details Date Type Department Care Team ([facility] Contact Info) Description 12/15/2024 10:40 AM EST Office Visit [facility] - [facility] [address] [facility] [address] [place] [address] Mary Jett, SHELBI [address] [place] [address] Coronary artery disease involving venetie coronary artery of venetie heart without angina pectoris (Primary Dx); Mixed hyperlipidemia; Primary hypertension; Class 3 severe obesity due to excess calories with serious comorbidity and body mass index (BMI) of 40.0 to 44.9 in adult ([facility]); PAD (peripheral artery disease) ([facility]) Social History Tobacco Use Types [...] mg SL tabletIndications:Coronar y artery disease involving venetie coronary artery of venetie heart without angina pectoris Place 1 tablet [...] AM ESTAssociated Problem(s): Coronary artery disease involving venetie heart without angina pectoris The patient remains [...] (BMI) of 40.0 to 44.9 in adult ([facility]) Patient is obese. Approaches towards weight loss are discussed, including burning more calories than one takes in by portion control and regular exercise with an emphasis on duration rather than intensity. * Mary Jett NP - 12/15/2024 10:40 AM ESTAssociated Problem(s): PAD (peripheral artery disease) ([facility]) The patient offers no symptoms; no new concerning findings on exam today. We will continue to monitor this on serial imaging. Continue with efforts towards proper blood pressure and lipid control. EE * Mary Jett NP - 12/15/2024 10:40 AM EST Images from the original note were not included. [facility] PRIMARY DEGREE CLERK: Santi Becker MD PCP: Devan Winkler HPI: [...] of chest burning. She was evaluated at [facility] in 02/2022 for chest discomfort described as a sharp burning sensation. Troponin was negative. Plan to get echocardiogram as an outpatient but no further inpatient workup was completed. Echo completed 05/10/2022 revealed EF of 55 to 60% without obvious wall motion abnormality. No other significant abnormalities. She was hospitalized at [facility] in October 2023 for chest pain; she [...] 10/2022. CTA head and neck done at [facility] 08/02/24 revealed nolarge vessel occlusion in the [...] interprets for her; she declines a formal senior medical billing specialist. She was was last seen by me [...] pain Chronic gastritis Coronary artery disease involving venetie heart without angina pectoris Diverticulosis Dyslipidemia Internal [...] Assessment & Plan Coronary artery disease involving venetie coronary artery of venetie heart without angina pectoris The patient remains [...] index (BMI) of40.0 to 44.9 in adult ([facility]) Patient is obese. Approaches towards weight loss are discussed, including burning more calories than one takes in by portion control and regular exercise with an emphasis on duration rather than intensity. PAD (peripheral artery disease) ([facility]) The patient offers no symptoms; no new concerning findings on exam today. We will continue to monitor this on serial imaging. Continue with efforts towards proper blood pressure and lipid control. I personally spent a total of 30 minutes, including both [id number] and [id number]-girc-ep-face time on the date of the encounter, [...] Please pardon any grammatical or syntax errors. [facility] documented in this encounter Plan of Treatment Upcoming Encounters Date Type Department Care Team (Late st Contact Info) Description 06/15/2025 1:00 PM EDT Office Visit [facility] - [facility] [address] [phone] Santi Becker MD [address] [address] Scheduled Orders Name Type Priority Associated Diagnoses Orde r Schedule Lipid panel with reflex to direct LDL Lab Routine Mixed hyperlipidemia 1 Occurrences starting 12/15/2024 until 12/15/2025 Magnesium Lab Routine Primary hypertension 1 Occurrences starting 12/15/2024 until 12/15/2025 Basic metabolic panel Lab Routine Primary hypertension 1 Occurrences starting 12/15/2024 until 12/15/2025 documented as of this encounter Visit Diagnoses Diagnosis Coronary artery disease involving venetie coronary artery of venetie heart without angina pectoris- Primary Mixed hyperlipidemia Primary hypertension Unspecified essential hypertension Class 3 severe obesity due to excess calories with serious comorbidity and body mass index (BMI) of 40.0 to 44.9 in adult ([facility]) PAD (peripheral artery disease) ([facility]) Unspecified peripheral vascular disease documented [...] 11/24/2024 added in this encounter Care Teams Bank Vault Attendant Relationship Specialty Start Date End Date Andriy Scott [address] [place] [address] PCP - General Internal Medicine 12/15/20 documented as of this encounter
--- OUTSIDE RECORDS SUMMARY | 2024-12-29 11:42 | XMS_ITS | Encounter Summary ---
Author Organization [employer] Address [address] [facility] 7t [place] [address] Care Team Providers Care Service Advisor Name Role Phone Andriy Scott MD Primary Care Prov ider Encounter Details Date Type Department Care Team ([facility] st Contact Info) Description 12/07/2022 Orders Only [facility] [address] [place], [place] [phone] Tyra Anand LPN Social History Tobacco Use [...] filedocumented in this encounter Care Teams Service Advisor Relationship Specialty Start Date End Date Andriy Scott MD [address] [place] [address] PCP - General Internal Medicine 04/05/20 documented as of this encounter
--- OUTSIDE RECORDS SUMMARY | 2024-12-29 11:42 | XMS_ITS | Encounter Summary ---
Author Organization [facility] Address [address] [place] [address] Care Team Providers Care Miller Helper Name Role Phone Andriy Scott Primary Care Provide r Reason for Referral * Imaging (Routine) - Closed Specialty Diagnoses / Procedures Referred By Contac t Referred To Contact Radiology Diagnoses Diverticulosis of intestine, part unspecified, without perforation or abscess without bleeding Left lower quadrant pain Procedures CT Abdomen Pelvis wo Contrast Shannon Ceron PA [address] [address] [facility] [address] [place] [address] Referral ID Status Reason Start Date Expiration Date Visits Re quested Visits Authorized [id number] Closed 10/30/2024 02/28/2025 1 1 Reason for Visit * Imaging (Routine) - Closed Specialty Diagnoses / Procedures Referred By Contac t Referred To Contact Radiology Diagnoses Diverticulosis of intestine, part unspecified, without perforation or abscess without bleeding Left lower quadrant pain Procedures CT Abdomen Pelvis wo Contrast Shannon Ceron PA [address] [address] [facility] [address] [place] [address] Referral ID Status Reason Start Date Expiration Date Visits Re quested Visits Authorized [id number] Closed 10/30/2024 02/28/2025 1 1 Encounter Details Date Type Department Care Team (Latest Contact Info) Description 12/18/2024 10:12 AM EST - 12/18/2024 11:59 PM EST Hospital Encounter [facility] CT Scan [address] [place] [address] Diverticulosis of intestine, part unspecified, [...] mg SL tabletIndications:Piedad nary artery disease involving rosebud coronary artery of rosebud heart without angina pectoris Place 1 tablet [...] or Self Care documented in this encounter Progress Notes * MATEUS Singh - 12/18/2024 10:45 AM EST Please call patient daughter and let them know that CAT scan of abdomen pelvis did not reveal any colitis nor diverticulitis. From GI standpoint it was good. However, she did have a narrowing of the right iliac artery due to significant plaque, there was also small umbilical hernia and arthritis. I will be more than happy to refer her to vascular doctor in terms of her stenosis of iliac artery. TY documented in this encounter Plan of Treatment Upcoming Encounters Date Type Department Care Team (Late st Contact Info) Description 06/15/2025 1:00 PM EDT Office Visit [facility] - [facility] [address] [phone] Santi Becker MD [address] [address] documented as of this encounter Procedures Procedure Name Priority Date/Time Associated Diagnosis Comments CT ABDOMEN PELVIS WO CONTRAST Routine 12/18/2024 10:23 AM EST Diverticulosis of intestine, part unspecified, without perforation or abscess without bleeding Left lower quadrant pain documented in this encounter Results * CT Abdomen Pelvis wo Contrast (12/18/2024 10:23 AM EST) Anatomical Region Laterality Modality Body Computed Tomogra phy 12/23/2024 9:21 AM EST Impressions 12/23/2024 9:35 AM EST No acute findings in the abdomen/pelvis. Colonic diverticulosis without evidence of acute diverticulitis. ??No abscess or free air. -------- FINAL REPORT -------- Dictated By: JUAN LOCKETT Dictated Date: 12/23/2024 09:21 ET Assigned Physician: JUAN LOCKETT Reviewed and Electronically Signed By: JUAN LOCKETT Signed Date: 12/23/2024 09:35 ET Workstation ID: [id number] Transcribed By: Self Edit Transcribed Date: 12/23/2024 [...] changes seen throughout the bones. Procedure Note Juan Lockett MD - 12/23/2024 PROCEDURE: CT abdomen/pelvis [...] air. -------- FINAL REPORT -------- Dictated By: JUAN LOCKETT Dictated Date: 12/23/2024 09:21 ET Assigned Physician: JUAN LOCKETT Reviewed and Electronically Signed By: JUAN LOCKETT Signed Date: 12/23/2024 09:35 ET Workstation ID: [id number] Transcribed By: Self Edit Transcribed Date: 12/23/2024 09:[address] PROCEDURES documented in this encounter Visit Diagnoses Diagnosis Diverticulosis of [...] 12/18/2024 documented in this encounter Care Teams Miller Helper Relationship Specialty Start Date End Date Andriy Scott [address] [place], [place] PCP - General Internal Medicine 12/15/20 documented as of this encounter
--- OUTSIDE RECORDS SUMMARY | 2024-12-29 11:42 | XMS_ITS | Encounter Summary ---
Author Organization [employer] [facility] Address [address] [facility] 7t [place] [address] Care Team Providers Care Senior Hris Analyst Name Role Phone Andriy Scott MD Primary Care Prov ider Encounter Details Date Type Department Care Team (Late st Contact Info) Description 12/18/2022 Orders Only [facility] [address] [place], [place] [phone] Andriy Scott MD [address] [place] [address] Non-seasonal allergic rhinitis due to fungal spores [...] Primary documented in this encounter Care Teams Senior Hris Analyst Relationship Specialty Start Date End Date Andriy Scott MD [address] [place] [address] PCP - General Internal Medicine 04/05/20 documented as of this encounter
--- OUTSIDE RECORDS SUMMARY | 2024-12-29 11:42 | XMS_ITS | Encounter Summary ---
Author Organization [employer] Address [address] [facility] 7t [place] [address] Care Team Providers Care Process Plant Operator Name Role Phone Andriy Scott MD Primary Care Prov ider Reason for Visit * Reason Comments Med Refill Encounter Details Date Type Department Care Team ([facility] st Contact Info) Description 02/10/2024 Refill [facility] MED & PEDS [address] [place], [place] [phone] Andriy Scott MD [address] [place] [address] Mixed hyperlipidemia Social History Tobacco Use Types [...] documented as of this encounter Care Teams Process Plant Operator Relationship Specialty Start Date End Date Andriy Scott MD [address] [place] [id number] PCP - General Internal Medicine 04/05/20 documented as of this encounter
--- OUTSIDE RECORDS SUMMARY | 2024-12-29 11:42 | XMS_ITS | Encounter Summary ---
Author Organization [employer] [facility] Address [address] [facility] 7t [place] [address] Care Team Providers Care Physician Gynecologist Name Role Phone Andriy Scott MD Primary [...] on filedocumented in this encounter Care Teams Physician Gynecologist Relationship Specialty Start Date End Date Andriy Scott MD [address] [place] [address] PCP - General Internal Medicine 04/05/20 documented as of this encounter
--- OUTSIDE RECORDS SUMMARY | 2024-12-29 11:42 | XMS_ITS | Encounter Summary ---
Author Organization [employer] Address [address] [facility] 7t [place] [address] Care Team Providers Care Food And Nutrition Professor Name Role Phone Andriy Scott MD Primary Care Prov ider Encounter Details Date Type Department Care Team ([facility] st Contact Info) Description 11/07/2023 Abstract [facility] ADULT DENTAL [address] [place] [address] Elder Akers DDS [address] [place] [address] Social History Tobacco Use Types Packs/Day Years [...] documented as of this encounter Care Teams Food And Nutrition Professor Relationship Specialty Start Date End Date Andriy Scott MD [address] [place] [id number] PCP - General Internal Medicine 04/05/20 documented as of this encounter
--- OUTSIDE RECORDS SUMMARY | 2024-12-29 11:42 | XMS_ITS | Encounter Summary ---
Author Organization [employer] Address [address] [facility] 7t [place] [address] Care Team Providers Care Management Professionals Name Role Phone Andriy Scott MD Primary Care Prov ider Encounter Details Date Type Department Care Team ([facility] st Contact Info) Description 11/23/2022 Telephone [facility] MED & PEDS [address] [place], [place] [phone] Andriy Scott MD [address] [place] [address] Social History Tobacco Use Types Packs/Day Years [...] on filedocumented in this encounter Care Teams Management Professionals Relationship Specialty Start Date End Date Andriy Scott MD [address] [place] [address] PCP - General Internal Medicine 04/05/20 documented as of this encounter
--- OUTSIDE RECORDS SUMMARY | 2024-12-29 11:42 | XMS_ITS | Clinical Summary ---
Author Organization [facility] Address [address] [place] [address] Care Team Providers Care Quality Auditor Name Role Phone Zita Connell PA-C Primary Care Provider [phone] Source Comments PLEASE NOTE, if this patient [...] Coronary atherosclerosis 05/18/2015 Overview (05/18/2015): Followed by [facility] Cardiology Dr.Robert Ward Coronary artery disease invo lving [place] coronary artery without angina pectoris 05/18/2015 Abdominal [...] file Insurance [employer] MEDICARE [place] Care Teams Quality Auditor Relationship Specialty Start Date End Date Zita Connell PA-C [address] [place] [address] PCP - General 01/20/19
--- OUTSIDE RECORDS SUMMARY | 2024-12-29 11:42 | XMS_ITS | Encounter Summary ---
Author Organization [employer] [facility] Address [address] [facility] 7t [place] [address] Care Team Providers Care Qa Tech Name Role Phone Andriy Scott MD Primary [...] on filedocumented in this encounter Care Teams Qa Tech Relationship Specialty Start Date End Date Andriy Scott MD [address] [place] [address] PCP - General Internal Medicine 04/05/20 documented as of this encounter
[2024-12-29 14:35] LABS: Iron 82 mcg/dL (30-160); Percent Iron Saturation 37 % (15-50); Total Iron Binding Capacity 221 mcg/dL (228-428); Unsaturated Iron Binding 139 ug/dL
[2024-12-29 14:51] LABS: TSH reflex Free T4 2.31 uIU/mL (0.32-4.0); Vitamin D 25-OH Total 39.7 ng/mL (>30)
[2024-12-29 15:04] LABS: Folate 10.8 ng/mL (> or = 4.0); Vitamin B12 206 pg/mL (200-900)
== END 2024-12-29 10:48 | disposition home or self-care (01) ==
LOC: HO.CHCLDS 10:47
PROVIDERS: Visit Provider Internal Medicine
DX: R53.83 Other fatigue (principal); E55.9 Vitamin D deficiency, unspecified
CPT/HCPCS: 36415; 82306; 82607; 82746; 83540; 84443

== ENCOUNTER 2025-04-28 11:00 | Outpatient (REF) | payer OTHER, SELFPAY ==
--- OUTSIDE RECORDS SUMMARY | 2025-04-28 11:56 | XMS_ITS | Clinical Summary ---
Author Organization [employer] Address [address] [facility] 7t [place] [address] Care Team Providers Care Jail Manager Name Role Phone Andriy Scott MD [...] by MD. 30 patch 1 023 Active ketotifen (Zaditor) 0.025 % ophthalmic solution Administer 1 drop into both eyes 2 times daily. As needed for allergy Active nitroglycerin (Nitrostat) 0.[address] 1 tablet (0.4 mg) under the tongue every 5 (five) minutes if needed for chest pain. 30 tablet 024 Active glucose blood (FREESTYLE LITE) test stripIndications :Type 2 diabetes mellitus without complication, without long-term current use of insulin ([facility]) TEST BLOOD SUGAR TWICE DAILY 100 strip 11 Active TRUEplus Lancets 33G misc TEST BLOOD SUGAR TWICE DAILY 100 each 11 Active ferrous gluconate (Fergon) 324 (37.5 Fe) MG tablet TAKE ONE TABLET EVERY OTHER DAY IN THE MORNING 60 tablet 1 Active fluticasone (Flonase) 50 MCG/ACT nasal sprayIndications :Non-seasonal allergic rhinitis due to fungal spores Administer 1 spray into each nostril Once per day. Shake gently. Before first use, prime pump. After use, clean tip and replace cap. 16 g 11 025 2025 Active sodium chloride (Gratiot Nasal Mclain) 0.65 % nasal spray Administer 1 spray into each nostril if needed for congestion. 30 mL 12 025 2025 Active Aspirin Low Dose 81 MG chewable tablet CHEW ONE TABLET EVERY MORNING 90 tablet 025 Active rosuvastatin (Crestor) 20 MG tabletIndication s:Mixed hyperlipidemia TAKE ONE TABLET EVERY NIGHT AT BEDTIME 90 tablet 025 Active Calcium Carb-Cholecalcif jean 500-10 MG-MCG chewable tabletIndication s:Osteopenia of lumbar spine CHEW ONE TABLET EVERY MORNING 90 tablet 025 Active Trulicity 0.75 MG/0.5ML solution auto-injectorInd ications:Type 2 diabetes mellitus with stage 3a chronic kidney disease, without long-term current use of insulin ([facility]) INJECT ONE PEN (=0.75MG) SUBCUTANEOUSLY ONCE A WEEK DIRECTED 2 mL 3 025 Active Multiple Vitamin (Multivitamin) tabletIndication s:Primary hypertension TAKE ONE TABLET EVERY MORNING 30 tablet 8 025 Active cetirizine (ZyrTEC) 10 MG tablet TAKE ONE TABLET EVERY NIGHT AT BEDTIME NEEDED 90 tablet 8 Active cholecalciferol (Vitamin D-3) 25 MCG tablet TAKE ONE TABLET EVERY MORNING 90 tablet 3 Active Blood Pressure kit 1 kit Once per day. 1 kit 025 Active montelukast (Singulair) 10 MG tabletIndication s:Non-seasonal allergic rhinitis due to fungal spores Take 1 tablet (10 mg) by mouth at bedtime. 90 tablet 3 025 2025 Active isosorbide mononitrate ER (Imdur) 30 MG 24 hr tablet Take 1 tablet (30 mg) by mouth in the morning. 90 tablet 3 025 2025 Active fluticasone furoate (Arnuity Ellipta) 200 MCG/ACT inhaler Inhale 1 puff Once per day. Rinse mouth with water after use to reduce aftertaste and incidence of candidiasis. Do not swallow. 1 each 025 2025 Active valsartan (Diovan) 160 MG tablet Take 1 tablet (160 mg) by mouth Once per day. 90 tablet 1 025 Active doxazosin (Cardura) 2 MG tabletIndication s:Primary hypertension TAKE ONE TABLET EVERY MORNING 30 tablet 1 025 Active spironolactone (Aldactone) 25 MG tabletIndication s:Primary hypertension TAKE ONE-HALF TABLET EVERY MORNING 15 tablet 3 Active linaCLOtide (Linzess) 145 MCG capsule Take 1 capsule (145 mcg) by mouth before breakfast. Do not crush or chew. 30 capsule 025 2025 Active spironolactone (Aldactone) 25 MG tabletIndication s:Primary hypertension TAKE ONE-HALF TABLET EVERY MORNING 15 tablet 3 025 2024 Discontinued Asmanex, 120 Metered Doses, 220 MCG/ACT aerosol powder INHALE 1 PUFF TWICE DAILY. RINSE MOUTH AFTER USE 1 each 2 025 2024 Discontinued valsartan (Diovan) 80 MG tablet Take 1 tablet (80 mg) by mouth Once per day. 90 tablet 1 025 2024 Discontinued(R eorder (will not trigger notification to Pharmacy)) doxazosin (Cardura) 2 MG tabletIndication s:Primary hypertension Take 1 tablet (2 mg) by mouth in the morning. 30 tablet 1 025 2024 Discontinued Mometasone Furoate (Asmanex HFA) 100 MCG/ACT aerosol Inhale 2 Act (200 mcg) 2 times daily. 120 Act 3 025 2024 Discontinued Active Problems Problem Noted Date Diagnosed Date Subclavian artery stenosis, left 02/15/2025 Nasal sore 12/08/2024 Assessment & Plan (12/08/2024 9:09 AM EST): Patient recently passed though covid infection, will prescribe saline nasal spray and mupirocin, call back if not improving Asthma 11/30/2024 CAD in [place] artery 11/30/2024 Class 2 obesity 11/30/2024 Chronic stable angina 11/30/2024 Carotid stenosis, bilateral 09/01/2024 Dizziness 09/01/2024 Overview (11/30/2024): Dizziness and lightheadedness Fatigue 09/01/2024 Assessment & Plan (02/15/2025 2:13 PM EDT): Discussed blood work with patient she is still experiencing episode of feeling tired during the day, no chest pain or shortness of breath, could be related to doxaxozine, will decrease dose to 2mg, follow up in 1 month Assessment & Plan (12/29/2024 9:22 PM EST): Will order iron/vit b12/tsh to evalaute for fatigue, she already had a cmp/cbc, will call with results Peripheral edema 09/01/2024 Bloating 07/09/2024 Assessment & Plan (09/14/2024 3:33 PM EDT): Patient completed h pylori treatment. Will order confirmation test Type 2 diabetes mellitus wit h stage 3a chronic kidney disease, without long-term current use of insulin 06/30/2024 Assessment & Plan (02/25/2025 2:43 PM EDT): Will make podiatry referral for DM foot care Anemia in chronic kidney disease 06/16/2024 Overview [...] kidney 02/06/2021 Coronary artery disease invo lving [place] heart without angina pectoris 12/15/2020 Overview [...] target, no changes will be made Stage 3b chronic kidney disease 03/27/2019 Assessment & Plan [...] Coronary atherosclerosis 05/18/2015 Overview (07/09/2023): Followed by [facility] Cardiology Dr.Robert Ward Followed by [facility] Cardiology Dr.Robert Ward Assessment & Plan (01/09/2024 [...] (07/09/2023): as per past Medical records from Adult Primary Care as per past Medical records from - Adult Primary Care Assessment & Plan (04/09/2025 10:26 AM EDT): Uncontrolled, will increase valsartan to 160mg, continue low sodium diet and exercise as tolerated, Assessment & Plan (02/15/2025 1:50 PM EDT): Uncontrolled, will increase valsartan to 80mg, continue with rest of medications, encouraged low sodium diet and exercise as tolerated Hypertension 05/13/2015 Overview (11/30/2024): Follow low NA diet Avoid NSAIDs/Decongestant medications Target BP <120/80 Encounters Date Type Department Care Team Description 04/28/2025 10:15 AM EDT Telemedicine [facility] MED & PEDS [address] [place] [address] Andriy Scott MD Essential hypertension (Primary Dx) 04/28/2025 Travel 04/14/2025 Telephone [facility] & P[facility] [address] [place] [address] Andriy Scott MD 04/12/2025 Refill [facility] [address] [place] [address] Andriy Scott MD Primary hypertension; Primary hypertension 04/09/2025 9:45 AM EDT Telemedicine [facility] [address] [place] [address] Andriy Scott MD Essential hypertension (Primary Dx) 04/09/2025 Travel 04/08/[address] [address] Andriy Scott MD Returning call 03/19/2025 Telephone [facility] & P[facility] [address] [place] [address] Andriy Scott MD 02/25/2025 1:45 PM EDT Telemedicine [facility] [address] [place] [address] Andriy Scott MD Type 2 diabetes mellitus with stage 3a chronic kidney disease, without long-term current use of insulin ([facility]) (Primary Dx); Hospital discharge follow-up 02/25/2025 Travel 02/24/2025 Telephone [facility] [address] [place] [address] Andriy Scott MD chart prep 02/23/2025 Telephone [facility] [address] [place] [address] Andriy Scott MD 02/22/2025 Orders Only [facility] [address] [place] [address] Andriy Scott MD Non-seasonal allergic rhinitis due to fungal spores 02/15/2025 1:15 PM EDT Telemedicine [facility] [address] [place] [address] Andriy Scott MD Essential hypertension (Primary Dx); Primary hypertension; Other fatigue 02/15/2025 Telephone [facility] [address] [facility] [place] [address] Andriy Scott MD Call Back Request 02/15/2025 Travel 02/12/2025 Refill [facility] [address] [place] [address] Andriy Scott MD from Last 3 Months Immunizations Immunization Administration Dates Next Due Tdap 01/25/2021 Zoster, [...] Sign Reading Time Taken Comments Blood Pressure 136/66 04/28/2025 10:31 AM EDT Pulse 59 04/28/2025 10:31 AM EDT Temperature 36.4 ??C (97.6 ??F) 12/29/2024 10:01 [...] Vaccine ( season) 2024 10/30/2021, 04/10/2021, 03/20/2021 Dental X-Ray: Bitewings 08/09/2024 08/08/20 23, 06/27/2022, 01/03/2021, Additional history exists SDOH Screening 01/02/2025 01/02/2024 Lipid Panel 01/10/2025 01/10/2024, 05/0 01/2023, 08/03/2022, Additional history exists Diabetes: Hemoglobin A1C 06/28/2025 025, 09/14/2024, 03/30/2024, Additional history exists Influenza Vaccine (Season Ended) 2025 Diabetes: Foot Exam 12/29/2025 12/29/2024, 12/29/2024, 12/29/2024, Additional history exists Tobacco Screening 04/28/2026 04/28/2025 Dental X-Ray: Full Mouth 08/09/2026 08/08/2023, 02/24 [...] patient's age to complete this topic Meningococcal B Vaccine Aged Out No l onger eligible based on patient's age to complete [...] Author Blood Pressure < 140/90 Blood Pressure 136/66(2024 10:31 AM EDT) No Mi Alcaraz, Stoney Reduce adverse events General No change(2023 1:55 PM EST) Yes Mi Alcaraz PharmD Note: 01/20/24: Patient complaining of leg swelling- ?d/t famotidine? 12/02/23: Patient complaining of feeling tired/weak - ?d/t doxazosin. - This resolved as of 01/20/24 Procedures Procedure Name Priority Date/Time Associated Diagnosis Comments POCT GLYCATED HEMOGLOBIN, TOTAL Routine 12/29/2024 10:02 AM EST Type 2 diabetes mellitus without complication, without long-term current use of insulin ([facility]) LIPID PANEL, STANDARD Routine 01/10/2024 8:24 AM EST Type 2 diabetes mellitus without complication, without long-term current use of insulin ([facility]) PROPHYLAXIS - ADULT Routine 08/08/2023 1 1:00 AM EDT INTRAORAL - COMPLETE SERIES OF RADIOGRAPHIC IMAGES Routine 08/08/2023 11:00 AM EDT PERIODIC ORAL EVALUATION - ESTABLISHED PATIENT Routine 08/08/2023 11:00 AM EDT from Last 3 Months or Most Recently Relevant to Health Maintenance Results * POCT A1C (12/29/2024 10:02 AM EST) Hemoglobin A1C 5.7 4.0 - 6.0 % QC Media Lot # Comment:[id number] Lot# Expiration Date Comment:09/11/2026 Blood 12/29/2024 10:0 2 AM EST Andriy Hartman MD POINT OF CARE TEST ENTER/EDIT ORDERABLES Final Result * Lipid Panel, Standard (01/10/2024 8:24 AM EST) Triglycerides 76 <150 mg/dL [facility] Comment:Desirable Triglyceri de: less than 150 mg/dLBorderline High Triglyceride 150-199 mg/dLHigh Triglyceride: 200-499 mg/dLVery High Triglyceride: greater than or equal to 5OO mg/dL Cholesterol 125 <200 mg/dL [facility] Comment:Desirable Cholestero l: less than 200 mg/dLBorderline High Cholesterol: 200-239 mg/dLHigh Cholesterol: greater than 239 mg/dL LDL Cholesterol Calculated 63 <100 mg/dL [facility] Comment:Desirable LDL: less than 100 mg/dLNear Optimal/Above Optimal LDL: 110- 129 mg/dLBorderline High LDL: 130-159 mg/dLHigh LDL: 160-189 mg/dLVery High LDL: greater than or equal to 190 mg/dL HDL Cholesterol 47 >40 mg/dL [facility] Comment:Desirable HDL: great er than 40 mg/dL Note: This HDL assay may give artificially low results in patients with liver disease. Blood Venous blood specimen / Unknown 01/10/2024 8:24 AM EST 01/10/2024 12:30 PM EST Andriy Hartman MD LAB BLOOD ORDERABL ES Final Result [facility] [address] [place] [address] [phone] from Last 3 Months or Most Recently Relevant to Health Maintenance Insurance [facility] [employer] [employer] OPTIONS (HMO D-SNP) [facility] [place] [id number] Care Teams Jail Manager Relationship Specialty Start Date End Date WinklerAndriy Hebert MD [address] [place] [address] [place] [id number] PCP - General Internal Medicine 04/05/20
[2025-04-28 14:20] LABS: MANUAL DIFF FLAG NO
[2025-04-28 14:24] LABS: Basophils Percent Auto 0.4 % (0-2); Eosinophils Absolute Auto 0.3 X10*3/uL (0.0-0.4); Eosinophils Percent Auto 4.8 % (0-4); Hematocrit 35.8 % (37.0-47.0); Hemoglobin 11.4 g/dl (12.0-16.0); Imm Gran Abs Auto 0.02 X10*3/uL (0.00-0.03); Imm Gran Pct Auto 0.3 % (0.0-0.4); Lymphocytes Absolute Auto 1.9 X10*3/uL (1.2-4.9); Lymphocytes Percent Auto 28.8 % (20-40); Mean Corpuscular HGB Conc 31.8 g/dl (31.0-35.0); Mean Corpuscular Hemoglobin 27.7 pg (27.0-33.0); Mean Corpuscular Volume 87.1 fL (80.0-98.0); Mean Platelet Volume 9.6 fL (9.4-12.3); Monocytes Absolute Auto 0.4 X10*3/uL (0.1-1.2); Monocytes Percent Auto 5.4 % (2-11); Neutrophils Percent Auto 60.3 % (45-73); Platelet Count 306 X10*3/uL (160-400); Red Blood Count 4.11 X10*6/uL (4.20-5.50); Red Cell Distribution Width 13.4 % (11.0-16.0); White Blood Count 6.7 X10*3/uL (4.8-10.8)
[2025-04-28 14:35] LABS: Iron 61 mcg/dL (30-160); Percent Iron Saturation 26 % (15-50); Total Iron Binding Capacity 237 mcg/dL (228-428); Unsaturated Iron Binding 176 ug/dL
[2025-04-28 15:10] LABS: Folate 10.6 ng/mL (> or = 4.0); Vitamin B12 197 pg/mL (200-900)
== END 2025-04-28 11:01 | disposition home or self-care (01) ==
LOC: HO.CHCLDS 11:00
PROVIDERS: Visit Provider Internal Medicine
DX: N18.31 Chronic kidney disease, stage 3a (principal); E11.22 Type 2 diabetes mellitus with diabetic chronic kidney disease
CPT/HCPCS: 36415; 82607; 82746; 83540; 85025

== ENCOUNTER 2025-06-16 08:47 | Outpatient (REF) | payer OTHER, SELFPAY ==
--- OUTSIDE RECORDS SUMMARY | 2025-06-16 09:10 | XMS_ITS | Clinical Summary ---
Author Organization [address] [place] [address] [place] [phone] Phone Care Team Providers Care Front End Specialist Name Role Phone Andriy Scott Primary Care Provide r Allergies Active Allergy Reactions Criticality Noted Date Comments Amlodipine Pain Medium 08/03/2015 Abdominal pain Other reaction(s): abdominal pain , Abdominal pain' feeling weak/tired Diph,Pertuss(Acel),Tet Vac(Pf) Unknown 12/15/2024 Diphtheria,Pertussis (Acellular),Tetanus Vaccine 06/19/2023 Lisinopril Medium 05/17/2015 Feeling weak/tired Penicillins Unknown,Rash,Swellin g Low 05/13/2015 Medications omeprazole (PriLOSEC) [address] capsule Take [...] 1 (one) time each day. Active calcium carbonate-vitami n D3 600 mg-12.5 mcg (500 unit) capsule Take 1 tablet by mouth 1 (one) time each day. Active montelukast (SINGULAIR) 10 mg tablet Take 1 tablet (10 mg total) by mouth at bedtime. Active spironolactone (ALDACTONE) 25 mg tablet Take 0.5 Tablets by mouth daily. Active aspirin 81 mg EC tablet 81 mg. 08/03/20 15 Active doxazosin (CARDURA) 4 mg tablet 4 mg. 08/03/20 15 Active fluticasone HFA (FLOVENT HFA) 110 mcg/actuation inhaler Inhale 1 puff by mouth 2 (two) times a day. 08/03/20 15 Active loratadine (CLARITIN) 10 mg tablet 10 mg. 11/30/19 16 Active ferrous gluconate (FERGON) 324 mg (37.5 mg iron) tablet Take 1 tablet (324 mg total) by mouth 1 (one) time each day. 11/24/20 24 Active nitroglycerin (NITROSTAT) 0.4 mg SL tabletIndication s:Coronary artery disease involving greenville coronary artery of greenville heart without angina pectoris Place 1 tablet (0.4 mg total) under the tongue every 5 (five) minutes if needed for chest pain. 26 tablet 3 12/15/19 25 Active valsartan (DIOVAN) 40 mg tabletIndication s:Essential (primary) hypertension TAKE ONE TABLET EVERY MORNING 90 tablet 2 01/21/20 25 Active Additional Information Patient taking differently: 80 mgoral Every morning, Reported on 06/15/2025 Annabel Krishnaick 140 mg/mL pen injector injection INJECT ONE ML SUBCUTANEOUSLY EVERY 14 DAYS 2 mL 6 02/12/20 25 Active cetirizine (ZyrTEC) 10 mg chewable tablet Chew 1 (one) time each day. Active clopidogreL (PLAVIX) 75 mg tablet Take 1 tablet (75 mg total) by mouth 1 (one) time each day. Active isosorbide mononitrate (IMDUR) 30 mg 24 hr tablet Take 1 tablet (30 mg total) by mouth 1 (one) time each day. Do not crush or chew. Active rosuvastatin (CRESTOR) 20 mg tablet Take 1 tablet (20 mg total) by mouth 1 (one) time each day. Active cholecalciferol (VITAMIN D-3) 25 mcg (1,000 unit) tablet Take 1 tablet (1,000 Units total) by mouth 1 (one) time each day. Active Active Problems Problem Noted Date Diagnosed Date Subclavian artery stenosis, left (CMS/HCC V24) 0 06/15/2025 History of coronary artery stent placement 06/15 Overview (06/15/2025): Multiple Class 3 severe obesity due t o excess calories with serious comorbidity and body mass index (BMI) of 40.0 to 44.9 in adult [place] [facility] V28) 12/15/2024 Assessment & Plan (12/15/2024 4:02 PM EST): Patient is obese. Approaches towards weight loss are discussed, including burning more calories than one takes in by portion control and regular exercise with an emphasis on duration rather than intensity. Peripheral edema 09/01/2024 Fatigue 09/01/2024 Dizziness 09/01/2024 Overview (09/01/2024): Dizziness and lightheadedness Carotid stenosis, bilateral 09/01/2024 Chest pain 11/26/2023 Dyslipidemia 11/26/2023 Stable angina [place] [place] 11/26/2023 PAD (peripheral artery disease) ([facility] [place] Overview (09/01/2024): Last Assessment & Plan: Follows with Dr. Bhatia Assessment & Plan (12/15/2024 4:02 PM EST): The patient offers no symptoms; no new concerning findings on exam today. We will continue to monitor this on serial imaging. Continue with efforts towards proper blood pressure and lipid control. Coronary artery disease invo lving green[place] heart without angina pectoris 12/15/2020 Overview (09/01/2024): [...] Encounters Date Type Department Care Team Description 06/15/2025 1:00 PM EDT Office Visit [facility] - [address] [place] [phone] Santi Becker MD Coronary artery disease involving greenville coronary artery of green[place] heart without angina pectoris (Primary Dx); PAD (peripheral artery disease) ([facility] V24); Primary hypertension; Carotid stenosis, bilateral; Subclavian artery stenosis, left ([facility] V24); History of coronary artery stent placement 05/24/2025 Telephone [facility] - [address] [place] [address] Santi Becker MD Prior Auth (Repatha SureClick 140MG/ML auto-injectors) from Last 3 Months Surgical History Surgery [...] Assigned at Female 11/10/2024 2:03 PM EST Legal Sex Female 8:29 AM EST Gender Identity Female 11/10/2024 2:03 PM EST Sexual Orientation Straight 11/23/2024 3: 36 PM EST Obstetrics History Last Filed Vital Signs Vital Sign Reading Time Taken Comments Blood Pressure 138/70 06/15/2025 12:55 PM EDT Pulse 70 06/15/2025 12:55 PM EDT Temperature - - Respiratory Rate - - Oxygen Saturation 95% 06/15/2025 12:55 PM EDT Inhaled Oxygen Concentration - - Weight 71.2 kg (157 lb) 06/15/2025 12:55 PM EDT Height 152.4 cm (5') 06/15/2025 12:55 PM EDT Body Mass Index 30.66 06/15/2025 12:55 PM EDT Plan of Treatment Upcoming Encounters Date Type Department Care Team (Late st Contact Info) Description 08/09/2025 10:30 AM EDT Office Visit [facility] - [place] [address] [facility] [address] [place] [phone] Phan Avalos DPNaomi [address] [facility] [address] [place] [address] Health Maintenance Due Date Last Done Comments Diabetes: Annual Foot Exam 1954 Diabetes: Annual Retina Eye Exam 1955 Pneumococcal Vaccine: 50+ Years (1 of 2 - PCV) 1963 RSV Immunization Adult Patients (1 - 1-dose 75+ series) 2019 Diabetes: Annual GFR (Glomerular Filtration Rate) 03/17/2020 03/17/2019, 09/07/2015 Falls Risk Assessment 11/03/2022 Medicare Annual Wellness Visit 11/03/2022 Osteoporosis Screening (Bone Density Screening) 11/03/2022 Social Influencers of Health Screening 11/03/2022 Hypertension/CHF/CAD Annual BMP Blood Test 11/04/2022 03/17/2019, 09/07/2015 COVID-19 Vaccine ( season) 2024 10/30/2021, 04/10/2021, 03/20/2021 Diabetes: Annual Urine Albumin-Creatinine Ratio (uACR) 10/13/2024 03/27/2023 Depression Screening 11/25/2024 Diabetes: Blood Sugar Control Test (HGBA1C) 06/28/2025 12/29/2024, 09/14/2024, 03/30/2024, Additional history exists Influenza Vaccine (#1) 2025 Cholesterol Screening (Lipid Panel) 01/10/2029 01/10/2024, 09/07/2015 [...] Procedure Name Priority Date/Time Associated Diagnosis Comments ANNUAL BMP BLOOD TEST Routine 03/17/2019 from Last 3 Months or Most Recently Relevant to Health Maintenance Results * Annual BMP Blood Test (03/17/2019) Annual BMP Blood Test Abstracted Historical Provider MD HEALTH MAINTENANCE Final Result from Last 3 Months or Most Recently Relevant to Health Maintenance Insurance [employer] MEDICARE Member Subscriber Plan / Payer (Ef fective 2016-Present) Name:Amee Hartman Relation to Subscriber:Self Name:Amee Hartman Payer ID:[id number] Group ID:[id number] Type:Not on file Address: [address] [place] [phone] Care Teams Front End Specialist Relationship Specialty Start Date End Date Andriy Scott [address] [place], [place] PCP - General Internal Medicine 12/15/20
--- OUTSIDE RECORDS SUMMARY | 2025-06-16 09:10 | XMS_ITS | Clinical Summary ---
Author Organization [employer] Address [address] [facility] [address] [place] [address] Care Team Providers Care Small Machine Bindery Operator Name Role Phone Andriy Scott MD Primary Care Prov ider Allergies Active Allergy Reactions Criticality Noted Date Comments Amlodipine Medium 09/07/2015 Other reaction(s): abdominal pain , Abdominal pain' feeling weak/tired Diphth-Acell Pertussis-Tetanus 06/19/2023 Lisinopril Medium 05/17/2015 Feeling weak/tired Penicillins Rash,Swelling Low 05/13/2015 Medications lidocaine-priloca ine (Emla) 2.5-2.5 % creamIndications: Mid-back pain, acute Apply tid to affected area of back 30 g 3 023 Active triamcinolone (Kenalog) 0.1 % cream Apply topically if needed in the morning and at bedtime (pain and swelling). 30 g 5 023 Active ceramides (CeraVe) moisturizing cream Apply 1 application topically if needed for dry skin. 340 g 3 023 Active Diclofenac Sodium 1 % gelIndications:Ot her back pain, unspecified chronicity Apply to the [...] as directed by MD. 30 patch 1 Active ketotifen (Zaditor) 0.025 % ophthalmic solution Administer 1 drop into both eyes 2 times daily. As needed for allergy Active nitroglycerin (Nitrostat) 0.[address] 1 tablet (0.4 mg) under the tongue every 5 (five) minutes if needed for chest pain. 30 tablet Active glucose blood (FREESTYLE LITE) test stripIndications: Type 2 diabetes mellitus without complication, without long-term current use of insulin ([facility]) TEST BLOOD SUGAR TWICE DAILY 100 strip 11 Active TRUEplus Lancets [facility]G [facility] TEST BLOOD SUGAR TWICE DAILY 100 each Active fluticasone (Flonase) 50 MCG/ACT nasal sprayIndications: Non-seasonal allergic rhinitis due to fungal spores Administer 1 spray into each nostril Once per day. Shake gently. Before first use, prime pump. After use, clean tip and replace cap. 16 g 2025 Active sodium chloride (Irwin Nasal [place]) 0.65 % nasal spray Administer 1 spray into each nostril if needed for congestion. 30 mL 12 025 2025 Active Multiple Vitamin (Multivitamin) tabletIndications :Primary hypertension TAKE ONE TABLET EVERY MORNING 30 tablet 8 Active cetirizine (ZyrTEC) 10 MG tablet TAKE ONE TABLET EVERY NIGHT AT BEDTIME NEEDED 90 tablet 8 Active cholecalciferol (Vitamin D-3) 25 MCG tablet TAKE ONE TABLET EVERY MORNING 90 tablet 3 Active Blood Pressure kit 1 kit Once per day. 1 kit Active montelukast (Singulair) 10 MG tabletIndications :Non-seasonal allergic rhinitis due to fungal spores Take 1 tablet (10 mg) by mouth at bedtime. 90 tablet 3 025 2025 Active isosorbide mononitrate ER (Imdur) 30 MG 24 hr tablet Take 1 tablet (30 mg) by mouth in the morning. 90 tablet 3 025 03/31/ 2026 Active fluticasone furoate (Arnuity Ellipta) 200 MCG/ACT inhaler Inhale 1 puff Once per day. Rinse mouth with water after use to reduce aftertaste and incidence of candidiasis. Do not swallow. 1 each 025 2025 Active valsartan (Diovan) 160 MG tablet Take 1 tablet (160 mg) by mouth Once per day. 90 tablet 1 Active spironolactone (Aldactone) 25 MG tabletIndications :Primary hypertension TAKE ONE-HALF TABLET EVERY MORNING 15 tablet 3 Active linaCLOtide (Linzess) 145 MCG capsule Take 1 capsule (145 mcg) by mouth before breakfast. Do not crush or chew. 30 capsule 2025 Active cyanocobalamin (Vitamin B-12) 1000 MCG tablet Take 1 tablet (1,000 mcg) by mouth Once per day. 90 tablet 2025 Active ferrous gluconate (Fergon) 324 (37.5 Fe) MG tablet TAKE ONE TABLET BY MOUTH EVERY OTHER DAY IN THE MORNING 60 tablet Active Trulicity 0.75 MG/0.5ML solution auto-injectorIndi cations:Type 2 diabetes mellitus with stage 3a chronic kidney disease, without long-term current use of insulin ([facility]) INJECT ONE PEN (=0.75MG) SUBCUTANEOUSLY ONCE A WEEK DIRECTED 2 mL 3 Active Aspirin Low Dose 81 MG chewable tablet CHEW ONE TABLET EVERY MORNING 90 tablet Active Calcium Carb-Cholecalcife rol 500-10 MG-MCG chewable tabletIndications :Osteopenia of lumbar spine CHEW ONE TABLET EVERY MORNING 90 tablet 1 025 Active rosuvastatin (Crestor) 20 MG tabletIndications :Mixed hyperlipidemia TAKE ONE TABLET EVERY NIGHT AT BEDTIME 90 tablet 1 025 Active doxazosin (Cardura) 2 MG tabletIndications :Primary hypertension TAKE ONE TABLET EVERY MORNING 30 tablet Active Aspirin Low Dose 81 MG chewable tablet CHEW ONE TABLET EVERY MORNING 90 tablet 025 2024 Discontinued rosuvastatin (Crestor) 20 MG tabletIndications :Mixed hyperlipidemia TAKE ONE TABLET EVERY NIGHT AT BEDTIME 90 tablet 1 025 2024 Discontinued Calcium Carb-Cholecalcife rol 500-10 MG-MCG chewable tabletIndications :Osteopenia of lumbar spine CHEW ONE TABLET EVERY MORNING 90 tablet 1 025 2024 Discontinued Trulicity 0.75 MG/0.5ML solution auto-injectorIndi cations:Type 2 diabetes mellitus with stage 3a chronic kidney disease, without long-term current use of insulin ([facility]) INJECT ONE PEN (=0.75MG) SUBCUTANEOUSLY ONCE A WEEK DIRECTED 2 mL 3 025 2024 Discontinued doxazosin (Cardura) 2 MG tabletIndications :Primary hypertension TAKE ONE TABLET EVERY MORNING 30 tablet 1 025 2024 Discontinued Active Problems Problem Noted Date Diagnosed Date Chronic idiopathic constipation 04/28/2025 Assessment & Plan (04/28/2025 3:33 PM EDT): Will prescribe linzess, encouraged to continue high fiber diet, call back if worsening Subclavian artery stenosis, left 02/15/2025 Nasal sore 12/08/2024 Assessment & Plan (12/08/2024 9:09 AM EST): Patient recently passed though covid infection, will prescribe saline nasal spray and mupirocin, call back if not improving Asthma 11/30/2024 CAD in [place] artery 11/30/2024 Class 2 obesity 11/30/2024 Chronic [...] disease 06/16/2024 Overview (11/30/2024): Target Hgb 10-12 Assessment & Plan (04/28/2025 3:35 PM EDT): Pending blood work, continue iron replacement, follow up as needed Chronic LLQ pain 01/09/2024 Assessment & Plan [...] kidney 02/06/2021 Coronary artery disease invo lving [place] heart without angina pectoris 12/15/2020 Overview (11/30/2024): [...] Coronary atherosclerosis 05/18/2015 Overview (07/09/2023): Followed by [facility] Cardiology Dr.Robert Ward Followed by [facility] Cardiology Dr.Robert Ward Assessment & [...] Care as per past Medical records from Adult Primary Care Assessment & Plan (04/28/2025 3:31 PM EDT): Controlled, keep low sodium diet and exercise as tolerated, keep bp log, target <140/90, will follow up in 3 months Assessment & Plan (04/09/2025 10:26 AM EDT): [...] Encounters Date Type Department Care Team Description 06/12/2025 Refill [facility] [address] [place] [address] Andriy Scott MD Primary hypertension 06/11/2025 Refill [facility] [address] [place] [address] Andriy Scott MD Osteopenia of lumbar spine; Mixed hyperlipidemia 06/10/2025 Refill [facility] [address] [place] [address] Andriy Scott MD Type 2 diabetes mellitus with stage 3a chronic kidney disease, without long-term current use of insulin (CMS/HCC) 06/08/2025 Orders Only [facility] [address] [place] [address] Andriy Scott MD 05/20/2025 Telephone [facility] [address] [place] [address] Andriy Scott MD 05/18/2025 9:40 AM EDT Office Visit [facility] [address] [place] [address] Maryjo العراقي, OD Type 2 diabetes mellitus with stage 3a chronic kidney disease, without long-term current use of insulin (CMS/HCC) (Primary Dx) 05/18/2025 Travel 05/12/2025 Refill [facility] [address] [place] [address] Andriy Scott MD 05/06/2025 Orders Only [facility] [address] [place] [address] Andriy Scott MD Numbness of left foot (Primary Dx) 05/06/2025 Telephone [facility] [address] [place] [address] Andriy Scott MD Referral 04/29/2025 Telephone [facility] [address] [place] [address] Andriy Scott MD Results; Medication Question 04/28/2025 10:15 AM EDT Telemedicine [facility] [address] [place] [address] Andriy Soctt MD Essential hypertension (Primary Dx); Chronic idiopathic constipation; Anemia in stage 3b chronic kidney disease ([facility]/HCC) 04/28/2025 Travel 04/14/2025 Telephone [facility] [address] [place] [address] Andriy Scott MD 04/12/2025 Refill [facility] [address] [place] [address] Andriy Scott MD Primary hypertension; Primary hypertension 04/09/2025 9:45 AM EDT Telemedicine [facility] [address] [place] [address] Andriy Scott MD Essential hypertension (Primary Dx) 04/09/2025 Travel 04/08/2025 Telephone [facility]IC[facility] [address] [place] [address] Andriy Scott MD Returning call 03/19/2025 Telephone [facility] [address] [place] [address] Andriy Scott MD from Last 3 Months [...] 59 04/28/2025 10:31 AM EDT Temperature 36.4 C (97.6 F) 12/29/2024 10:01 AM EST Respiratory Rate 16 12/29/2024 10:01 AM EST Oxygen Saturation 97% 12/29/2024 10:01 AM EST Inhaled Oxygen Concentration - - Weight 71.2 kg (157 lb) 12/29/2024 10:01 AM EST Height 142.2 cm (4' 8 ) 12/29/2024 10:01 AM EST Body Mass Index 35.2 12/29/2024 10:01 AM EST Plan of Treatment Upcoming Encounters Date Type Department Care Team (Late st Contact Info) Description 07/30/2025 9:30 AM EDT Telemedicine [facility] [address] [place] [address] Andriy Scott MD [address] [place] [address] Health Maintenance Due Date Last Done Comments [...] Additional history exists Influenza Vaccine (#1) 2025 Diabetes: Foot Exam 12/29/2025 12/29/2024, 12/29/2024, [...] Procedure Name Priority Date/Time Associated Diagnosis Comments VITAMIN B12/FOLATE, SERUM PANEL Routine 04/28/2025 11:01 AM EDT Type 2 diabetes mellitus with stage 3a chronic kidney disease, without long-term current use of insulin ([facility]) IRON AND TOTAL IRON BINDING CAPACITY Routine 04/28/2025 11:01 AM EDT Type 2 diabetes mellitus with stage 3a chronic kidney disease, without long-term current use of insulin (CMS/HCC) CBC WITH AUTO DIFFERENTIAL Routine 04/28/2025 11:01 AM EDT Type 2 diabetes mellitus with stage 3a chronic kidney disease, without long-term current use of insulin (CMS/HCC) POCT GLYCATED HEMOGLOBIN, TOTAL Routine 12/29/2024 10:02 AM EST Type 2 diabetes mellitus without complication, without long-term current use of insulin (CMS/HCC) LIPID PANEL, STANDARD Routine 01/10/2024 8:24 AM EST Type 2 diabetes mellitus without complication, without long-term current use of insulin (CMS/HCC) PROPHYLAXIS - ADULT Routine 08/08/2023 1 1:00 AM EDT INTRAORAL - COMPLETE SERIES OF RADIOGRAPHIC IMAGES Routine 08/08/2023 11:00 AM EDT PERIODIC ORAL EVALUATION - ESTABLISHED PATIENT Routine 08/08/2023 11:00 AM EDT from Last 3 Months or Most Recently Relevant to Health Maintenance Results * (ABNORMAL) Vitamin B12 (Cobalamin) and Folate Panel, Serum (04/28/2025 11:01 AM EDT) Vitamin B12 197(L) 200 - 900 pg/mL [facility] Comment:NORMAL 200-900 PG/ML INDETERMINATE 160-199 PG/ML DEFICIENT < 160 PG/ML Folate 10.6 > or = 4.0 ng/mL [facility] Comment:Reference Values:> o r = 4.0 ng/mL< 4.0 ng/mL suggests folate deficiency Methotrexate, aminopterin and folinic acid(leucovorin) are chemotherapeutic agents whose molecularstructures are similar to folate; therefore, the Architectfolate assay cannot be used for patients using these drugs. Blood Venous blood specimen / Unknown 04/28/2025 11:01 AM EDT 04/28/2025 2:15 PM EDT us Andriy Hartman MD LAB BLOOD ORDERABL ES Final Result [facility] [address] [place] [address] [phone] * (ABNORMAL) CBC auto differential (04/28/2025 11:01 AM EDT) White Blood Count 6.7 4.8 - 10.8 X10*3/uL [facility] Red Blood Count 4.11(L) 4.20 - 5.50 X10*6/uL [facility] Hemoglobin 11.4(L) 12.0 - 16.0 g/dl [facility] Hematocrit 35.8(L) 37.0 - 47.0 % [facility] Mean Corpuscular Volume 87.1 80.0 - 98.0 fL [facility] Mean Corpuscular Hemoglobin 27.7 27.0 - 33.0 pg [facility] Mean Corpuscular HGB Conc 31.8 31.0 - 35.0 g/dl [facility] Red Cell Distribution Width 13.4 11.0 - 16.0 % [facility] Platelet Count 306 160 - 400 X10*3/uL [facility] Mean Platelet Volume 9.6 9.4 - 12.3 fL [facility] Neutrophils Percent Auto 60.3 45 - 73 % [facility] Imm Gran Pct Auto 0.3 0.0 - 0.4 % [facility] Lymphocytes Percent Auto 28.8 20 - 40 % [facility] Monocytes Percent Auto 5.4 2 - 11 % [facility] Eosinophils Percent Auto 4.8(H) 0 - 4 % [facility] Basophils Percent Auto 0.4 0 - 2 % [facility] NRBC Pct Auto 0.0 0.0 - 0.2 /100WBC [facility] Neutrophils Absolute Auto 4.0 2.0 - 8.3 x10*3/uL [facility] Imm Gran Abs Auto 0.02 0.00 - 0.03 X10*3/uL [facility] Lymphocytes Absolute Auto 1.9 1.2 - 4.9 X10*3/uL [facility] Monocytes Absolute Auto 0.4 0.1 - 1.2 X10*3/uL [facility] Eosinophils Absolute Auto 0.3 0.0 - 0.4 X10*3/uL [facility] Basophils Absolute Auto 0.0 0.0 - 0.2 X10*3/uL [facility] NRBC Abs Auto 0.000 0.0 - 0.012 X10*3/uL [facility] Blood Venous blood specimen / Unknown 04/28/2025 11:01 AM EDT 04/28/2025 2:15 PM EDT Andriy Hartman MD LAB BLOOD ORDERABL ES Final Result Performing Organization Address [facility] de Phone Number [facility] [address] [place] [phone] * Iron And Total Iron Binding Capacity (04/28/2025 11:01 AM EDT) Iron 61 30 - 160 mcg/dL [facility] Total Iron Binding Capacity 237 228 - 428 mcg/dL [facility] Percent Iron Saturation 26 15 - 50 % [facility] Unsaturated Iron Binding 176 ug/dL [facility] Blood Venous blood specimen / Unknown 04/28/2025 11:01 AM EDT 04/28/2025 2:15 PM EDT Andriy Hartman MD LAB BLOOD ORDERABL ES Final Result Performing Organization Address [facility] de Phone Number [facility] [address] [place] [phone] * POCT A1C (12/29/2024 10:02 AM EST) Hemoglobin A1C 5.7 4.0 - 6.0 % QC Media Lot # Comment:[id number] Lot# Expiration Date Comment:09/11/2026 Blood 12/29/2024 10:0 2 AM EST Andriy Hartman MD POINT OF CARE TEST ENTER/EDIT ORDERABLES Final Result * Lipid Panel, Standard (01/10/2024 8:24 AM EST) Triglycerides 76 <150 mg/dL [facility] Comment:Desirable Triglyceri de: less than 150 mg/dLBorderline High Triglyceride 150-199 mg/dLHigh Triglyceride: 200-499 mg/dLVery High Triglyceride: greater than or equal to 5OO mg/dL Cholesterol 125 <200 mg/dL [facility] Comment:Desirable Cholestero l: less than 200 mg/dLBorderline High Cholesterol: 200-239 mg/dLHigh Cholesterol: greater than 239 mg/dL LDL Cholesterol Calculated 63 <100 mg/dL [facility] Comment:Desirable LDL: less than 100 mg/dLNear Optimal/Above Optimal LDL: 110- 129 mg/dLBorderline High LDL: 130-159 mg/dLHigh LDL: 160-189 mg/dLVery High LDL: greater than or equal to 190 mg/dL HDL Cholesterol 47 >40 mg/dL [facility] Comment:Desirable HDL: great er than 40 mg/dL Note: This HDL assay may give artificially low results in patients with liver disease. Blood Venous blood specimen / Unknown 01/10/2024 8:24 AM EST 01/10/2024 12:30 PM EST us Andriy Hartman MD LAB BLOOD ORDERABL ES Final Result Performing Organization Address City/State/[facility] Co de Phone Number [facility] [address] [place] [phone] from Last 3 Months or Most Recently Relevant to Health Maintenance Insurance [employer] [facility] OPT[employer] (HMO D-SNP) D[facility]AL - [facility] Care Teams Small Machine Bindery Operator Relationship Specialty Start Date End Date Andriy Scott MD [address] [place] [phone] PCP - General Internal Medicine 04/05/20
--- OUTSIDE RECORDS SUMMARY | 2025-06-16 09:10 | XMS_ITS | Encounter Summary ---
Author Organization [facility] Address [address] [facility] [address] [place] [address] Phone Care Team Providers Care Rn Staffing Name Role Phone Andriy Winkler Primary Care Provider [phone] Encounter Details Date Type Department Care Team (Late st Contact Info) Description 06/30/2024 Office Communication [facility] [address] [place] [address] Tyra Escobedo ARNP [address] [facility] [address] [place] [address] Social History Tobacco Use Types Packs/Day [...] on filedocumented in this encounter Care Teams Rn Staffing Relationship Specialty Start Date End Date Andriy Winkler PCP - General Internal Medicine 03/08/21 documented as of this encounter
--- OUTSIDE RECORDS SUMMARY | 2025-06-16 09:10 | XMS_ITS | Clinical Summary ---
Author Organization [facility] Address [address] [place] [address] Care Team Providers Care Receiving Worker Name Role Phone Zita Connell PA-C Primary Care Provider [phone] Source Comments PLEASE NOTE, if this patient [...] Coronary atherosclerosis 05/18/2015 Overview (05/18/2015): Followed by [facility] Cardiology Dr.Robert Ward Coronary artery disease invo lving [place] coronary artery without angina pectoris 05/18/2015 Abdominal [...] - Adult Primary Care Asthma, mild intermittent ([facility]) 05/13/2015 Overview (05/17/2015): Extrinsic asthma unspecified- as [...] 80 09/07/2015 9:27 AM EDT Temperature 37.1 C (98.7 F) 09/07/2015 9:27 AM EDT Respiratory Rate 14 09/07/2015 9:27 AM EDT Oxygen Saturation 96% 07/01/2015 3:25 PM EDT Inhaled Oxygen Concentration - - Weight 87.1 kg (192 lb) 09/07/2015 9:27 AM EDT Height 147.3 cm (4' 10 ) 09/07/2015 9:27 AM EDT Body Mass Index 40.13 09/07/2015 9:27 AM EDT Plan of Treatment Not on file Insurance [employer] MEDICARE COMPLETE [place] OR MEDICAID Care Teams Receiving Worker Relationship Specialty Start Date End Date Zita Connell PA-C [address] [place] [address] PCP - General 01/20/19
--- OUTSIDE RECORDS SUMMARY | 2025-06-16 09:10 | XMS_ITS | Data Portability ---
Author Organization [facility] Address [address] [place] [address] Care Team Providers Care Lawn And Garden Technician Name Role Phone HIM [facility] OTHER [facility] OTHER [facility] Primary Care Provider Assessment Encounter Date Assessment Date Assessment LastModified by Organization Details LastModified Time 11/29/2024 11/29/2024 I provided real -time medical direction via phone for this encounter and was available for additional phone-based assistance as needed. I have reviewed and agree with the Assessment and Plan as documented by the Spool Hauler. Patient given the opportunity to ask questions. Our service contacted for an assessment of: Viral URI symptoms As per above, patient with approximately several days of viral URI symptoms. Denies fever or chills. Denies chest pain, shortness of breath, dyspnea on exertion. Positive nasal congestion and dry cough. Positive sick contacts. She tested herself for COVID this morning in his positive. Per business area manager on the scene, vital signs are stable and patient is afebrile. Lungs clear. Patient with temp earlier in the day but afebrile currently. No increased work of breathing and no distress. Impression: COVID-19 Plan: Continue with omop-nvk-bfkfykz medications to control symptoms. Red flags discussed [...] We discussed the need to seek care urgently/emergentl y in the setting of any new or worsening serious symptoms, particularly fever chills Not available 11/29/2024 16:58:08 01/20/2025 01/20/2025 I provided real -time medical direction via phone for this encounter and was available for additional phone-based assistance as needed. I have reviewed and agree with the Assessment and Plan as documented by the Spool Hauler. Patient given the opportunity to ask questions. Our service contacted for an assessment of: Blood pressure reading As per above, patient with a recent vascular procedure and has a new blood pressure cuff that she is having difficulty managing. She has been getting systolic readings up in the 200s and called the service for evaluation. She denies any chest pain, shortness of breath, dyspnea on exertion. She denies headache or any change in her vision. She otherwise feels at her baseline. Per business area manager on the scene, vital signs are stable. Her blood pressure systolic is 180 or as on the readings that she has been getting it has been up in the 200s. Education given. She is on antihypertensives and has been taking this regularly. Asked her to follow up with PCP. Impression: Hypertension Plan: Continue with blood pressure medications. Follow up with PCP. Allergies: Reviewed PCP f/u: We discussed the diagnostic uncertainty of home visits and the risk associated with this. In this case, the patient and I felt this to be an acceptable and reasonable amount of risk given the benefit of avoiding an ED visit. We discussed the need to seek care urgently/emergentl y in the setting of any new or worsening serious symptoms, particularly fever chills lightheadedness altered mental status Not available 01/20/2025 16:47:37 Plan of Treatment Reminders Order Date Submit Date Provider Last Modified By Organization Details Last Modified Time Details Appointments None recorded. Lab BMP, serum or plasma 2023 [facility], [address] [place] [address], [id number] 4 16:15:58 Referral None recorded. Procedures None recorded. Surgeries None recorded. Imaging electrocard iogram [address], [id number] 4 16:15:59 Medication Orders Diflucan 150 mg tablet 2023 [facility], [address] [place] [address], [id number], 4 12:59:25 ketoconazol e 2 % topical cream 2023 [facility], [address] [place] [address], [id number], 4 12:59:25 nystatin 100,000 unit/gram topical powder 2023 024 [facility], [address] [place] [address], [id number], 4 12:59:25 Patient TargetsNo targets recorded. Patient InstructionsNo instructions recorded. Reason for Referral None Reported. Results Created Date Observation Date Name Description Value Unit Range Abnormal Flag Note LastModifiedBy Organization Detail LastModifiedTime 07/17/20 24 07/17/2024 BMP, serum or plasm a CRE 0.9 Not Available [facility] [address], [phone] 07/17/2024 16:13:32 07/17/20 24 07/17/2024 BMP, serum or plasm a GLU 113 Not Available [facility] [address], [address] 07/17/2024 16:13:32 07/17/20 24 07/17/2024 BMP, serum or plasm a K+ 3.9 Not Available [facility] [address], [address] 07/17/2024 16:13:32 07/17/20 24 07/17/2024 BMP, serum or plasm a Na+ 142 Not Available [facility] [address], [address] 07/17/2024 16:13:32 07/17/20 24 07/17/2024 kenyatta buckley am No observ ation record ed. kellee [address], [address] 07/17/2024 16:15:59 Result Notes None recorded. Medical Equipment None Reported. Allergies Allergen ID Allergen Name Allergen Category Reaction Reaction Severity Criticality Documentation Date Start Date Code Code System Note Provider Name and Address Organization Details Recorded Time 94644 lisinopri l medicatio n Not available Not available Not available 01/20/2025 78679 RxNorm Not Available [facility] 5 13:06:14 1971 Product containin g penicilli n (product) medicatio n Not available Not available Not available 01/21/2023 69445 8001 SNOMED Not Available [facility] - production 4 03:34:36 1972 amlodipin e medicatio n Not available Not available Not available 01/21/2023 89732 RxNorm Not Available [facility] - production 5 13:06:14 1973 Adacel medicatio n Not available Not available Not available 01/21/2023 49338 8 RxNorm Rhina Simons MD [address] [place] [address],[address], [place], [address] 3 12:45:04 Medications Name Sig Start Date [...] in Arterial blood by Pulse oximetry Systolic And Diastolic Provider Name and Address Organization Details Last Updated DateTime 5 95 /min 85 /min 101.4 [degF] 95 % 95 % 130/67 mm[Hg] Not Available [facility] [employer] 5 16:55:55 Date Recorded Respiratory rate Heart rate Body temperature Body weight Oxygen saturation Oxygen saturation in Arterial blood by Pulse oximetry Systolic And Diastolic Provider Name and Address Organization Details Last Updated DateTime 5 16 /min 84 /min 97.8 [degF] 32852.7 2 g 99 % 99 % 138/72 mm[Hg] Not Available [facility] [employer] 5 20:47:01 Date Recorded Oxygen saturation Oxygen saturation in Arterial blood by Pulse oximetry Body temperature Body weight Respiratory rate Heart rate Body height Systolic And Diastolic Provider Name and Address Organization Details Last Updated DateTime 5 98 % 98 % 97.4 [degF] 45635.8 g 14 /min 80 /min 152.4 cm 185/70 mm[Hg] Not Available [facility] [employer] 5 16:37:03 Date Recorded Oxygen saturation Oxygen saturation in Arterial blood by Pulse oximetry Heart rate Respiratory rate Body temperature Body weight Systolic And Diastolic Provider Name and Address Organization Details Last Updated DateTime 4 98 % 98 % 78 /min 16 /min 98.4 [degF] 98331.4 96 g 132/62 mm[Hg] Not Available [facility] [employer] 4 11:27:56 Date Recorded Body weight Body height Body temperature Oxygen saturation Oxygen saturation in Arterial blood by Pulse oximetry Respiratory rate Heart rate Systolic And Diastolic Provider Name and Address Organization Details Last Updated DateTime 4 28686.3 12 g 152.4 cm 98.4 [degF] 97 % 97 % 10 /min 67 /min 104/62 mm[Hg] Not Available [facility] - production 16:06:51 Social History None recorded. Functional Status None [...] [id number] Rhina Simons MD [facility] [address] [place] [phone] 01/21/2023 12:33:47 01/23/2023 12:29:15 Paresthesia 32179260 R20.2 likely a combinatio n of neuropathy [...] 911 if symptoms worsen Thoracic back pain 60842 8004 M54.6 would benefit from imaging- r/[place] [id number] JALYN FLORES MD [facility] - [facility] [address] [place] [phone] 11/29/2023 12:21:25 11/30/2023 15:51:28 Low blood pressure 19425703 I95.9 13901 JOSS LIRA MD [facility] - [facility] [address] [place] [phone] 03/19/2024 11:27:48 03/19/2024 18:30:31 Candidal intertrigo [id number] B37.2 Evaluation in the field was performed by my business area manager colleague, as noted above, I provided real-time direction and supervisio n for this visit. The evaluation revealed Hypertensi on, Diabetes, Heart Disease, Hypertensi on, COPD/Asthm a, Other with hx of candidal intertrigo x 2 prior. Reports rash and pruritis under her breasts and groin area . Pt reports that she is flying to [place] on 04/03 and her PCP had no appointmen t. Denies fever, chills, CP, SOB, N/V/D, UTI symptoms. VSSBG 100 this am per patient report Impression :Candidal intertrigo Plan:Diflu can 150 mg PO s5Ctpqnecf zole 2 % dailyNysta tin powder BID after the ketoconazo le is absorbed to keep the area dryPt advised re : Daily cleansing of intertrigi nous skin with a mild cleanser followed by drying of affected area with a examining chair assembler on a cool settingAer ation of affected area when feasibleUs e of absorbent material or clothing, such as cotton or bejarano wool, to separate skin in folds especially when in [place] Primary care, consider__ _ Dispositio n: We [...] BG >250, N/V or any other concerns. [id number] Dottie Clifford MD [facility] [address] [place] [phone] 07/17/2024 16:06:35 07/17/2024 20:24:34 Dizziness 532450320 R42 As noted, we were called to see this patient regarding concerns of dizziness and hypotensio n. Evaluation in the field was performed by my business area manager colleague, as noted above, I provided real-time [...] anemia within her normal based on prior records.Kentrell macias takes doxazosin and valsartan for her BP, [...] changes to consciousn ess, chest pain, dyspnea. 14713 Betzy Jackson MD [facility] [address] [place] [phone] 11/29/2024 16:55:51 11/30/2024 00:23:38 COVID-19 [id number] U07.1 62156 JOSS LIRA MD [facility] [address] [place] [phone] 12/03/2024 20:46:57 12/04/2024 12:55:39 Worried well 97459470 Z71.1 Evaluation in the field was performed by my business area manager colleague, as noted above, I provided real-time [...] vomiting, diarrhea or any other concerns . [id number] Betzy Jackson MD [facility] [address] [place] [phone] 01/20/2025 16:37:01 01/21/2025 00:38:39 Essential hypertension 19859917 I10 Health Concerns Section Related Observation LastModified by Organization Detai ls LastModified Time None Recorded Concern Status LastModified by Organization Details LastModified Time None Recorded Advance Directives Directive None Recorded Payers Insurance Date Sequence Insurance Name Policy Number Policy Johnston Covered Member ID Johnston Member ID Guarantor Name 11/30/2024 1 [facility] - DOS PRIOR TO 2023 - DUAL ELIGIBLE (MEDICARE REPLACEMENT/ADV ANTAGE - HMO) Amee Hartman [id number] Amee Hartman 01/20/2025 1 [facility] - DOS ON OR AFTER 2023 - DUAL ELIGIBLE - CARE HOME OPTIONS AND ONE CARE (MEDICARE REPLACEMENT/ADV ANTAGE - HMO) Amee Hartman [id number] Amee Hartman Notes Date Note Type Note Provider Name and Address Organization Details Recorded Time 03/19/2024 text/html ROS as noted in the HPI HPI: Hx: Candidal Interigo Patient with increased redness and raw skin in groin and under breasts severe itch .................. .................. .................. .................. .................. .................. .................. ............... [facility] Nurse Triage Notes (Sujey Klein): Comments: HPI reviewed, no further questions .................. .................. .................. .................. .................. .................. .................. ............... Spool Hauler Note From Bartolome Reed: Pt co rash/raw skin under breasts and under belly lower abdomen. Pt sts has had before and was told it was yeast infection. Pt denies fever NVD cp or sob. Baseline vitals assessed. Rash assessed photos uploaded. [facility] contacted diflucan , cream, and nistatin powder called into pharmacy for delivery. Pt advised to follow up with pcp. Pt has appt march 30. Pt education on signs indicating the ER. Spool Hauler Allergies: Penicillin .................. .................. .................. .................. .................. .................. .................. ............... Disposition: Fulfilled JOSS LIRA MD [address] [facility],[address], [place], [phone], [facility] 03/19/2024 11:43:58 07/17/2024 text/html CRC Nurse Triage Notes (Loly Phelps): Reason For Request: low BP Chief Complaints: Hypotension PMH: Hypertension, Diabetes, Heart Disease, COPD/Asthma Allergies: Penicillin Comments: Design Cell Engineer verified the member's name//address and phone number. [...] s/s and seek emergency treatment if needed. Spool Hauler Organization Information for Karen Calvert Business Legal Name: [employer] Address: [address] [place] [address], Automatic Pilot Mechanic: Jhon Steward MD CLIA No.: [id number] Spool Hauler POC Test Results from Karen Calvert iSTAT Chem8+ (17:11:35) Na: 142 mEq/L K: 3.9 mEq/L Cl: 106 mEq/L iCa: 1.22 mmol/L TCO2: 23 mmol/L Glu: 113 mg/dL BUN: 23 mg/dL Crea: 0.9 mg/dL Hct: 32 % Hb: 10.9 g/dL A EKG (17:11:38) EKG test performed. Attachments uploaded as part of this test result can be found under Documents section. .................. .................. .................. .................. .................. .................. .................. ............... Spool Hauler Note From Karen Calvert: Sent to a [...] warm, dry; 12 lead ECG: uploaded to [employer]; Venous blood draw performed: Istat Chem8+ results: uploaded to [employer]. [facility] consulted and will send note to pt's PCP advising pt's Doxazosin dose be switched from AM to PM. Pt's medications come in blister packs, so prescription needs to change before med change goes into effect. Red flags discussed. Pt has no further questions. .................. .................. .................. .................. .................. .................. .................. ............... Disposition: Fulfilled Dottie Clifford MD [address] [facility],[address], [place], [address], [facility] 07/17/2024 17:31:03 11/29/2024 text/html CRC Nurse Triage [...] ; Cough Denies: Increased work of breathing/labored with or without fever Unable to speak in full sentences without distress Discoloration of skin -cyanosis Needs to sleep sitting up, can t catch breath Shortness of breath in setting of confusion COPD Shortness of breath with exertion Pain with inspiration Chief Complaints: Weakness, Cough PMH: Hypertension, Coronary Artery Disease, COPD/Asthma Comments: Design Cell Engineer verified the Pt.'s name//address and phone number. [...] .................. .................. .................. .................. .................. .................. ............... Spool Hauler Note From Monico Avalos: This 79-year-old female [...] .................. .................. .................. .................. .................. .................. ............... [facility] Consulted: Betzy Jackson .................. .................. .................. .................. .................. .................. .................. ............... Disposition: Fulfilled Betzy Jackson MD [address] [facility],[address], [place], [address], [employer] 11/29/2024 16:58:19 12/03/2024 text/html ROS as noted in the [facility] CRC Nurse Triage Notes (Sujey Klein - RN): Reason For Request: Pt reporting low blood pressure 86/61 (approximation), feeling weak>pt reporting she was COVID positive on 11/28/24 Chief Complaints: Hypotension, Weakness PMH: Hypertension, Coronary Artery Disease, COPD/Asthma PMH Reviewed at 12/03/2024 - :41 Allergies Reviewed at 12/03/2024 - :41 Comments: Design Cell Engineer verified the member's name//address and phone number. Member Omani speaking only, dental front office assistant used. Member calling to report hypotension, most [...] .................. .................. .................. .................. .................. .................. ............... Spool Hauler Note From Bartolome Reed: Pt co low BP reading on home BP machine, 98-146 systolic. Pt denies headache , dizziness, NVD, cp, sob , abdominal pain or blurry vision. Baseline vitals assessed, WNL. [facility] contacted and advised pt that if BP continues to read low to take half dose of BP med. pt sts has appt with fuel cell repairer next week. Education provided on signs indicating the ER. Pt advised to follow up with pcp, .................. .................. .................. .................. .................. .................. .................. ............... [facility] Consulted: Joss Lira .................. .................. .................. .................. .................. .................. .................. ............... Disposition: Fulfilled JOSS ILRA MD [address] [facility],[address], [place], [address], [place] [employer] 12/03/2024 22:27:39 01/20/2025 text/html HPI: Call returned to Amee Hartman to triage below. Reports having elevated BP reading today of L arm 170/97 HR 75 R arm 187/113 HR 76. Reports having some fatigue. Pt discharged from [facility] on 01/19/25 S/P Left subclavian stenosis stent and brachial cutdown and repair with Dr. Tobin. No LOPEZ, dizziness, CP or SOB. No changes to medications. Pt given rx for Clopidogrel. Per pt having some mild pain at procedure site with some bruising. Did take Tylenol with mild relief. Per pt has appt with Vascular Surgeon for follow up on 02/12/25. Pt advised of disposition, agrees to [facility] for vitals recheck and exam due to recent procedure. Pt instructed to call EMS if CP, SOB Or dizziness occurs. Confirmed demographics and allergies. Pt agrees. .................. .................. .................. .................. .................. .................. .................. ............... [facility] Nurse Triage Notes (Delphine Guevara): Reason For Request: Follow up visit Denies: History of Heart Attack, in the setting of active chest pain Active Chest pain, radiates to neck jaw and or arm Diaphoretic/Sweati ng Describes as crushing Sudden onset of nausea/Vomiting and shortness of breath. Shortness of Breath Unable to speak in full sentences without distress Chief Complaints: Extremity Pain, High Blood Pressure PMH: Hypertension, Coronary Artery Disease, COPD/Asthma, Diabetes Mellitus Type 2, Chronic Kidney Disease, Peripheral Artery Disease PMH Reviewed at 01/20/2025 - 13:06 Allergies Reviewed at 01/20/2025:06 Comments: Call to [facility], no cardiac concerns, patient discharged yesterday post procedure, feels fatigued and has had elevated BP since yesterday. Patient would like to be evaluated. .................. .................. .................. .................. .................. .................. .................. ............... Spool Hauler Note From Aubrey Espinosa: Patient alert and oriented complains of irregular blood pressure readings. Patient reports she had surgery on Saturday and wanted to make sure she was OK. Patient reports pain at site of surgery on left bicep, no other pain or complaints. Patient denies nausea, vomiting, diarrhea, headache, weakness, dizziness, visual changes, or any other pain or complaints. Patient, pink, warm, dry, secondary exam unremarkable. Left arm appears to have incision and surgical site at bicep area, swollen, and bruised. No extra heat or discharge. Patient ambulatory, reports normal appetite, intake, and elimination. Patient denies any fever or chills. Patient produces blood pressure cuff, wrist type model, that yields wildly differing and inaccurate readings. Consistent blood pressure obtained with our equipment. Patient encouraged to follow up with PCP and obtain more accurate blood pressure machine if possible. Patient reports she feels reassured with blood pressure readings. Red flags, patient education discussed. .................. .................. .................. .................. .................. .................. .................. ............... [facility] Consulted: Betzy Jackson .................. .................. .................. .................. .................. .................. .................. ............... Disposition: Fulfilled Betzy Jackson MD [address] [facility],[address] [facility], [place], [address], [employer] [facility] 01/20/2025 17:15:09 OBGyn Episode No OBEpisode recorded.
[2025-06-16 14:34] LABS: Cholesterol 111 mg/dL (<200); HDL Cholesterol 48 mg/dL (>40); Triglycerides 63 mg/dL (<150)
[2025-06-16 15:01] LABS: Reflex LDLD? No
== END 2025-06-16 08:48 | disposition home or self-care (01) ==
LOC: HO.CHCLDS 08:47
PROVIDERS: PCP Internal Medicine; Visit Provider Nurse Practitioner Family
DX: E78.2 Mixed hyperlipidemia (principal)
CPT/HCPCS: 36415; 80061

== ENCOUNTER 2025-07-05 13:52 | Outpatient (REF) | payer OTHER, SELFPAY ==
--- OUTSIDE RECORDS SUMMARY | 2025-07-05 14:19 | XMS_ITS | Clinical Summary ---
Author Organization [facility] Address [address] [place] [address] Care Team Providers Care Security Support Analyst Name Role Phone Zita Connell PA-C Primary Care Provider [phone] Source Comments PLEASE NOTE, if this patient [...] Coronary atherosclerosis 05/18/2015 Overview (05/18/2015): Followed by [facility] Cardiology Dr.Robert Ward Coronary artery disease invo [place]ving [place] coronary artery without angina pectoris 05/18/2015 Abdominal [...] - Adult Primary Care Asthma, mild intermittent ([facility]) 05/13/2015 Overview (05/17/2015): Extrinsic asthma unspecified- as [...] file Insurance [employer] MEDICARE [place]TE [place] MED[place] Care Teams Security Support Analyst Relationship Specialty Start Date End Date Zita Connell PA-C [address] [place] [address] PCP - General 01/20/19
--- OUTSIDE RECORDS SUMMARY | 2025-07-05 14:19 | XMS_ITS | Clinical Summary ---
Author Organization [employer] Address [address] [facility] [address] [place] [address] Care Team Providers Care Combatant Diver Qualified Name Role Phone Andriy Scott MD Primary [...] tablet Active glucose blood (FREESTYLE LITE) test stripIndications :Type 2 diabetes mellitus without complication, without long-term current use of insulin ([facility]) TEST BLOOD SUGAR TWICE DAILY 100 strip 11 Active TRUEplus Lancets 33G misc TEST BLOOD SUGAR TWICE DAILY 100 each Active fluticasone (Flonase) 50 MCG/ACT nasal sprayIndications :Non-seasonal allergic rhinitis due to fungal spores Administer 1 spray into each nostril Once per day. Shake gently. Before first use, prime pump. After use, clean tip and replace cap. 16 g 025 2025 Active sodium chloride (Republic Nasal [place]) 0.65 % nasal spray Administer 1 spray into each nostril if needed for congestion. 30 mL 12 025 2025 Active Multiple Vitamin (Multivitamin) tabletIndication s:Primary hypertension TAKE ONE TABLET EVERY MORNING 30 tablet 8 Active cetirizine (ZyrTEC) 10 MG tablet TAKE ONE TABLET EVERY NIGHT AT BEDTIME NEEDED 90 tablet 8 Active cholecalciferol (Vitamin D-3) 25 MCG tablet TAKE ONE TABLET EVERY MORNING 90 tablet 3 025 Active Blood Pressure kit 1 kit Once per day. 1 kit Active montelukast (Singulair) 10 MG tabletIndication s:Non-seasonal [...] not swallow. 1 each 025 2025 Active linaCLOtide (Linzess) 145 MCG capsule Take 1 capsule (145 mcg) by mouth before breakfast. Do not crush or chew. 30 capsule 025 2025 Active cyanocobalamin (Vitamin B-12) 1000 MCG tablet Take 1 tablet (1,000 mcg) by mouth Once per day. 90 tablet 3 025 2025 Active ferrous gluconate (Fergon) 324 (37.5 Fe) MG tablet TAKE ONE TABLET BY MOUTH EVERY OTHER DAY IN THE MORNING 60 tablet 1 Active Trulicity 0.75 MG/0.5ML solution auto-injectorInd ications:Type 2 diabetes mellitus with stage 3a chronic kidney disease, without long-term current use of insulin ([facility]) INJECT ONE PEN (=0.75MG) SUBCUTANEOUSLY ONCE A WEEK DIRECTED 2 mL 3 Active Aspirin Low Dose 81 MG chewable tablet CHEW ONE TABLET EVERY MORNING 90 tablet 1 Active Calcium Carb-Cholecalcif jean 500-10 MG-MCG chewable tabletIndication s:Osteopenia of lumbar spine CHEW ONE TABLET EVERY MORNING 90 tablet 1 Active rosuvastatin (Crestor) 20 MG tabletIndication s:Mixed hyperlipidemia TAKE ONE TABLET EVERY NIGHT AT BEDTIME 90 tablet 1 025 Active doxazosin (Cardura) 2 MG tabletIndication s:Primary hypertension TAKE ONE TABLET EVERY MORNING 30 tablet Active spironolactone (Aldactone) 25 MG tabletIndication s:Primary hypertension Take 1 tablet (25 mg) by mouth Once per day. 30 tablet 3 Active carvedilol (Coreg) 6.25 MG tablet Take 6.25 mg by mouth with breakfast and with evening meal. Active valsartan (Diovan) 80 MG tablet Take 80 mg by mouth in the morning and 80 mg in the evening. Active Aspirin Low Dose 81 MG chewable tablet CHEW ONE TABLET EVERY MORNING 90 tablet 1 025 2024 Discontinued rosuvastatin (Crestor) 20 MG tabletIndication s:Mixed hyperlipidemia TAKE ONE TABLET EVERY NIGHT AT BEDTIME 90 tablet 1 025 2024 Discontinued Calcium Carb-Cholecalcif jean 500-10 MG-MCG chewable tabletIndication s:Osteopenia of lumbar spine CHEW ONE TABLET EVERY MORNING 90 tablet 1 025 2024 Discontinued Trulicity 0.75 MG/0.5ML solution auto-injectorInd ications:Type 2 diabetes mellitus with stage 3a chronic kidney disease, without long-term current use of insulin ([facility]) INJECT ONE PEN (=0.75MG) SUBCUTANEOUSLY ONCE A WEEK DIRECTED 2 mL 3 025 2024 Discontinued valsartan (Diovan) 160 MG tablet Take 1 tablet (160 mg) by mouth Once per day. 90 tablet 1 025 2024 Discontinued doxazosin (Cardura) 2 MG tabletIndication s:Primary hypertension TAKE ONE TABLET EVERY MORNING 30 tablet 1 025 2024 Discontinued spironolactone (Aldactone) 25 MG tabletIndication s:Primary hypertension TAKE ONE-HALF TABLET EVERY MORNING 15 tablet 3 025 2024 Discontinued spironolactone (Aldactone) 25 MG tabletIndication s:Primary hypertension Take 1 tablet (25 mg) by mouth Once per day. 15 tablet 3 025 2024 Discontinued(R eorder (will not trigger notification to Pharmacy)) valsartan (Diovan) 160 MG tablet Take 1.5 tablets (240 mg) by mouth Once per day. 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 slitting machine operator that she has not started, will increase spironolactone to 25mg, start/follow cardiology reccomendations Assessment & Plan (09/14/2024 3:31 PM EDT): [...] kidney 02/06/2021 Coronary artery disease invo lving inaja heart without angina pectoris 12/15/2020 Overview (11/30/2024): [...] Coronary atherosclerosis 05/18/2015 Overview (07/09/2023): Followed by [facility] Cardiology Dr.Robert Ward Followed by [facility] Cardiology Dr.Robert Ward Assessment & Plan [...] diabetes mellitus 05/15/2015 Overview (07/09/2023): A1C 7.1 -01/09 - 7.5 - 5/14 as per past Medical records from - Adult Primary Care A1C 7.1 -01/09 - 7.5 - 5/14 as per past [...] Encounters Date Type Department Care Team Description 07/01/2025 3:30 PM EDT Office Visit [facility] [address] [place] [address] Andriy Scott MD Type 2 diabetes mellitus with stage 3a chronic kidney disease, without long-term current use of insulin (CMS/HCC); Primary hypertension 07/01/2025 Refill [facility] PEDS [address] [place] [address] Andriy Scott MD Primary hypertension 07/01/2025 Travel 06/12/2025 Refill [facility] [address] [place] [address] Andriy Scott MD Primary hypertension 06/11/2025 Refill [facility] [address] [place] [address] Andriy Scott MD Osteopenia of lumbar spine; Mixed hyperlipidemia 06/10/2025 Refill [facility] [address] [place] [address] Andriy Scott MD Type 2 diabetes mellitus with stage 3a chronic kidney disease, without long-term current use of insulin (CMS/HCC) 06/08/2025 Orders Only [facility] [address] [place] [address] Andriy Scott MD 05/20/2025 Telephone [facility] [address] [place] [address] Andriy Scott MD 05/18/2025 9:40 AM EDT Office Visit [facility] OPTOMETRY [address] [place] [address] Maryjo العراقي, OD Type 2 diabetes mellitus with stage 3a chronic kidney disease, without long-term current use of insulin (CMS/HCC) (Primary Dx) 05/18/2025 Travel 05/12/2025 Refill [facility] [address] [place] [address] Andriy Scott MD 05/06/2025 Orders Only [facility] [address] [place] [address] Andriy Scott MD Numbness of left foot (Primary Dx) 05/06/2025 Telephone [facility] [address] [place] [address] Andriy Scott MD Referral 04/29/2025 Telephone [facility] [address] [place] [address] Andriy Scott MD Results; Medication Question 04/28/2025 10:15 AM EDT Telemedicine [facility] [address] [place] [address] Andriy Scott MD Essential hypertension (Primary Dx); Chronic idiopathic constipation; Anemia in stage 3b chronic kidney disease ([facility]/HCC) 04/28/2025 Travel 04/14/2025 Telephone [facility] [address] [place] [address] Andriy Scott MD 04/12/2025 Refill [facility] [address] [place] [address] Andriy Scott MD Primary hypertension; Primary hypertension 04/09/2025 9:45 AM EDT Telemedicine [facility] [address] [place] [address] Andriy Scott MD Essential hypertension (Primary Dx) 04/09/2025 Travel 04/08/2025 Telephone [facility] MEDICINE [address] [place], [place] [phone] Andriy Scott MD Returning call from Last 3 Months Immunizations Immunization Administration [...] your housing situation today? I have adi sing 09/12/[address] you li [...] Sign Reading Time Taken Comments Blood Pressure 169/76 07/01/2025 3:32 PM EDT Pulse 72 07/01/2025 3:32 PM EDT Temperature 37.1 C (98.7 F) 07/01/2025 3:32 PM EDT Respiratory Rate 20 07/01/2025 3:32 PM EDT Oxygen Saturation 97% 12/29/2024 10:01 AM EST Inhaled Oxygen Concentration - - Weight 71.7 kg (158 lb) 07/01/2025 3:32 PM EDT Height 142.2 cm (4' 8 ) 07/01/2025 3:32 PM EDT Body Mass Index 35.42 07/01/2025 3:32 PM EDT Plan of Treatment Upcoming Encounters Date Type Department Care Team (Late st Contact Info) Description 07/30/2025 9:30 AM EDT Telemedicine [facility] [address] [place] [address] Andriy Scott MD [address] [place] [phone] Health Maintenance Due Date Last Done Comments [...] 10/30/2021, 04/10/2021, 03/20/2021 Dental X-Ray: Bitewings 08/09/2024 08/08/20, 06/27/2022, 01/03/2021, Additional history exists SDOH Screening 01/02/2025 01/02/2024 Lipid Panel 01/10/2025 01/10/2024, 05/0 01/2023, 08/03/2022, Additional history exists Influenza Vaccine (#1) 2025 Diabetes: Foot Exam 12/29/2025 12/29/2024, 12/29/2024, 12/29/2024, Additional history exists Diabetes: Hemoglobin A1C 01/01/2026 025, 12/29/2024, 09/14/2024, Additional history exists Tobacco Screening 04/28/2026 04/28/2025 [...] Author Blood Pressure < 140/90 Blood Pressure 169/76(2024 3:32 PM EDT) No Mi Alcaraz, Stoney Reduce adverse events General No change(2023 1:55 PM EST) Yes Mi Alcaraz, Stoney Note: 01/20/24: Patient complaining of leg swelling- ?d/t famotidine? 12/02/23: Patient complaining of feeling tired/weak - ?d/t doxazosin. - This resolved as of 01/20/24 Procedures Procedure Name Priority Date/Time Associated Diagnosis Comments POCT GLYCATED HEMOGLOBIN, TOTAL Routine 07/01/2025 3:37 PM EDT Type 2 diabetes mellitus with stage 3a chronic kidney disease, without long-term current use of insulin ([facility]) POCT GLUCOSE Routine 07/01/2025 3:36 PM EDT Type 2 diabetes mellitus with stage 3a chronic kidney disease, without long-term current use of insulin ([facility]) VITAMIN B12/FOLATE, SERUM PANEL Routine 04/28/2025 11:01 AM EDT Type 2 diabetes mellitus with stage 3a chronic kidney disease, without long-term current use of insulin ([facility]) IRON AND TOTAL IRON BINDING CAPACITY Routine 04/28/2025 11:01 AM EDT Type 2 diabetes mellitus with stage 3a chronic kidney disease, without long-term current use of insulin (CMS/HCC) CBC WITH AUTO DIFFERENTIAL Routine 04/28/2025 11:01 AM EDT Type 2 diabetes mellitus with stage 3a chronic kidney disease, without long-term current use of insulin ([facility]) LIPID PANEL, STANDARD Routine 01/10/2024 8:24 AM EST Type 2 diabetes mellitus without complication, without long-term current use of insulin ([facility]) PROPHYLAXIS - ADULT Routine 08/08/2023 1 1:00 AM EDT INTRAORAL - COMPLETE SERIES OF RADIOGRAPHIC IMAGES Routine 08/08/2023 11:00 AM EDT PERIODIC ORAL EVALUATION - ESTABLISHED PATIENT Routine 08/08/2023 11:00 AM EDT from Last 3 Months or Most Recently Relevant to Health Maintenance Results * POCT HGB A1C (07/01/2025 3:37 PM EDT) Hemoglobin A1C 5.7 4.0 - 5.7 % QC Media Lot # [id number] Lot# Expiration Date Blood 07/01/2025 3:37 PM EDT Andriy Hartman MD POINT OF CARE TEST ENTER/EDIT ORDERABLES Final Result * POCT Glucose (07/01/2025 3:36 PM EDT) Glucose Blood, POC 126 60 - 200 mg/dL QC Media Lot # [id number] Lot# Expiration Date Blood Capillary blood specimen / Unknown 07/01/2025 3:36 PM EDT Andriy Hartman MD POINT OF CARE TEST ENTER/EDIT ORDERABLES Final Result * (ABNORMAL) Vitamin B12 (Cobalamin) and Folate Panel, Serum (04/28/2025 11:01 AM EDT) Vitamin B12 197(L) 200 - 900 pg/mL [facility] Comment:NORMAL 200-900 PG/ML INDETERMINATE 160-199 PG/ML DEFICIENT < 160 PG/ML Folate 10.6 > or = 4.0 ng/mL [facility] Comment:Reference Values:> o r = [...] MD LAB BLOOD ORDERABL ES Final Result [facility] [address] [place] [address] [phone] * (ABNORMAL) CBC auto differential (04/28/2025 11:01 AM EDT) White Blood Count 6.7 4.8 - 10.8 X10*3/uL [facility] Red Blood Count 4.11(L) 4.20 - 5.50 X10*6/uL [facility] Hemoglobin 11.4(L) 12.0 - 16.0 g/dl [facility] Hematocrit 35.8(L) 37.0 - 47.0 % [facility] Mean Corpuscular Volume 87.1 80.0 - 98.0 fL [facility] Mean Corpuscular Hemoglobin 27.7 27.0 - 33.0 pg [facility] Mean Corpuscular HGB Conc 31.8 31.0 - 35.0 g/dl [facility] Red Cell Distribution Width 13.4 11.0 - 16.0 % [facility] Platelet Count 306 160 - 400 X10*3/uL [facility] Mean Platelet Volume 9.6 9.4 - 12.3 fL [facility] Neutrophils Percent Auto 60.3 45 - 73 % [facility] Imm Gran Pct Auto 0.3 0.0 - 0.4 % [facility] Lymphocytes Percent Auto 28.8 20 - 40 % [facility] Monocytes Percent Auto 5.4 2 - 11 % [facility] Eosinophils Percent Auto 4.8(H) 0 - 4 % [facility] Basophils Percent Auto 0.4 0 - 2 % [facility] NRBC Pct Auto 0.0 0.0 - 0.2 /100WBC [facility] Neutrophils Absolute Auto 4.0 2.0 - 8.3 x10*3/uL [facility] Imm Gran Abs Auto 0.02 0.00 - 0.03 X10*3/uL [facility] Lymphocytes Absolute Auto 1.9 1.2 - 4.9 X10*3/uL [facility] Monocytes Absolute Auto 0.4 0.1 - 1.2 X10*3/uL [facility] Eosinophils Absolute Auto 0.3 0.0 - 0.4 X10*3/uL [facility] Basophils Absolute Auto 0.0 0.0 - 0.2 X10*3/uL [facility] NRBC Abs Auto 0.000 0.0 - 0.012 X10*3/uL [facility] Blood Venous blood specimen / Unknown 04/28/2025 11:01 AM EDT 04/28/2025 2:15 PM EDT us Andriy Hartman MD LAB BLOOD ORDERABL ES Final Result [facility] [address] [place] [address] [phone] * Iron And Total Iron Binding Capacity (04/28/2025 11:01 AM EDT) Iron 61 30 - 160 mcg/dL [facility] Total Iron Binding Capacity 237 228 - 428 mcg/dL [facility] Percent Iron Saturation 26 15 - 50 % [facility] Unsaturated Iron Binding 176 ug/dL [facility] Blood Venous blood specimen / Unknown 04/28/2025 11:01 AM EDT 04/28/2025 2:15 PM EDT Andriy Hartman MD LAB BLOOD ORDERABL ES Final Result Performing Organization Address [facility] Co de Phone Number [facility] [address] [place] [phone] * Lipid Panel, Standard (01/10/2024 8:24 AM EST) Triglycerides 76 <150 mg/dL [facility] Comment:Desirable Triglyceri de: less than 150 mg/dLBorderline High Triglyceride 150-199 mg/dLHigh Triglyceride: 200-499 mg/dLVery High Triglyceride: greater than or equal to 5OO mg/dL Cholesterol 125 <200 mg/dL [facility] Comment:Desirable Cholestero l: less than 200 mg/dLBorderline High Cholesterol: 200-239 mg/dLHigh Cholesterol: greater than 239 mg/dL LDL Cholesterol Calculated 63 <100 mg/dL [facility] Comment:Desirable LDL: less than 100 mg/dLNear Optimal/Above Optimal LDL: 110- 129 mg/dLBorderline High LDL: 130-159 mg/dLHigh LDL: 160-189 mg/dLVery High LDL: greater than or equal to 190 mg/dL HDL Cholesterol 47 >40 mg/dL [facility] Comment:Desirable HDL: great er than 40 mg/dL Note: This HDL assay may give artificially low results in patients with liver disease. Blood Venous blood specimen / Unknown 01/10/2024 8:24 AM EST 01/10/2024 12:30 PM EST Andriy Hartman MD LAB BLOOD ORDERABL ES Final Result Performing Organization Address [facility]/ZIP Co de Phone Number [facility] [address] [place] [phone] from Last 3 Months or Most Recently Relevant to Health Maintenance Insurance [facility] [employer] OPTIONS (HMO D-SNP) [facility] Care Teams Combatant Diver Qualified Relationship Specialty Start Date End Date Andriy Scott MD [address] [place] [phone] PCP - General Internal Medicine 04/05/20
--- OUTSIDE RECORDS SUMMARY | 2025-07-05 14:19 | XMS_ITS | Encounter Summary ---
Author Organization [facility] Address [address] [facility] [address] [place] [address] Phone Care Team Providers Care Locomotive Pipe Fitter Name Role Phone Andriy Winkler Primary Care Provider [phone] Encounter Details Date Type Department Care Team (Late Contact Info) Description 06/30/2024 Office Communication [facility] [address] [facility] [address] [place] [address] Tyra Escobedo ARNP [address] [address] Social History Tobacco Use Types [...] Care Team (Late st Contact Info) Description 07/05/2026 1:00 PM EDT Office Visit [facility] [address] [phone] Tyra Escobedo ARNP [address] [address] documented as of this encounter Visit Diagnoses Not on filedocumented in this encounter Care Teams Locomotive Pipe Fitter Relationship Specialty Start Date End Date Andriy Winkler PCP - General Internal Medicine 03/08/21 documented as of this encounter
--- OUTSIDE RECORDS SUMMARY | 2025-07-05 14:19 | XMS_ITS | Clinical Summary ---
Author Organization [address] [place] [address] [place] [phone] Phone Care Team Providers Care Cut In Worker Name Role Phone Andriy Scott Primary Care [...] mg SL tabletIndication s:Coronary artery disease involving coquille coronary artery of coquille heart without angina pectoris Place 1 tablet (0.4 mg total) under the tongue every 5 (five) minutes if needed for chest pain. 26 tablet 3 12/15/19 25 Active Repatha SureClick 140 mg/mL pen injector injection INJECT ONE [...] mouth 1 (one) time each day. Active valsartan (DIOVAN) 80 mg tablet Take 1 tablet (80 mg total) by mouth 2 (two) times a day. 60 each 5 06/29/20 25 026 Active carvediloL (COREG) 6.25 mg tablet Take 1 tablet (6.25 mg total) by mouth 2 (two) times a day with meals. 60 each 5 06/29/20 25 026 Active valsartan (DIOVAN) 40 mg tabletIndication s:Essential (primary) hypertension TAKE ONE TABLET EVERY MORNING 90 tablet 2 01/21/20 25 025 Discontin ued(Dose adjustmen t) Active Problems Problem Noted Date Diagnosed Date Subclavian artery stenosis, left ([facility] V24) 0 06/15/2025 History of coronary artery stent placement 06/15 Overview (06/15/2025): Multiple Class 3 severe obesity due t o excess calories with serious comorbidity and body mass index (BMI) of 40.0 to 44.9 in adult ([facility] V24, [facility] V28) 12/15/2024 Assessment & Plan (12/15/2024 4:02 PM EST): Patient is obese. Approaches towards weight loss are discussed, including burning more calories than one takes in by portion control and regular exercise with an emphasis on duration rather than intensity. Peripheral edema 09/01/2024 Fatigue 09/01/2024 Dizziness 09/01/2024 Overview (09/01/2024): Dizziness and lightheadedness Carotid stenosis, bilateral 09/01/2024 Chest pain 11/26/2023 Dyslipidemia 11/26/2023 Stable angina ([facility] V24) 11/26/2023 PAD (peripheral artery disease) ([facility] V24) Overview (09/01/2024): Last Assessment & Plan: Follows with Dr. Bhatia Assessment & Plan (12/15/2024 4:02 PM EST): The patient offers no symptoms; no new concerning findings on exam today. We will continue to monitor this on serial imaging. Continue with efforts towards proper blood pressure and lipid control. Coronary artery disease invo lving coquille heart without angina pectoris 12/15/2020 Overview (09/01/2024): [...] Encounters Date Type Department Care Team Description 06/29/2025 Telephone [facility] [address] [place] [phone] Santi Becker MD Med Refill 06/25/2025 Telephone [facility] [address] [place] [phone] Alma Clark MA Results (BP readings from [facility] 06/24/25) 06/15/2025 1:00 PM EDT Office Visit [facility] Cardiology [facility] [address] [place] [address] Santi Becker MD Coronary artery disease involving coquille coronary artery of coquille heart without angina pectoris (Primary Dx); PAD (peripheral artery disease) ([facility] V24); Primary hypertension; Carotid stenosis, bilateral; Subclavian artery stenosis, left ([facility] V24); History of coronary artery stent placement 05/24/2025 Telephone [facility] [address] [place] [phone] Santi Becker MD Prior Auth (Repatha SureClick [...] AM EDT Office Visit [facility] [place] [phone] [phone] Phan Avalos, DPNaomi [address] [address] Health Maintenance Due Date Last Done Comments [...] Test (03/17/2019) Annual BMP Blood Test Abstracted us Historical Provider MD HEALTH MAINTENANCE Final Result from Last 3 Months or Most Recently Relevant to Health Maintenance Insurance [employer] MEDICARE Member Subscriber Plan / Payer (Ef fective 2016-Present) Name:Amee Hartman Relation to Subscriber:Self Name:Amee Hartman Payer ID:[id number] Group ID:[id number] Type:Not on file Address: [place] [address] [address] [phone] Care Teams Cut In Worker Relationship Specialty Start Date End Date Andriy Scott [address] [place], [place] PCP - General Internal Medicine 12/15/20
[2025-07-05 17:39] LABS: MANUAL DIFF FLAG NO
[2025-07-05 18:01] LABS: Anion Gap 10 (12-20); Blood Urea Nitrogen 22 mg/dL (9-16); Calcium 9.7 mg/dL (8.4-10.2); Carbon Dioxide 32 mmol/L (22-29); Chloride 108 mmol/L (96-108); Estimated Glomerular Filt Rate > 60; Potassium 4.8 mmol/L (3.3-5.1); Sodium 145 mmol/L (135-145)
[2025-07-05 18:03] LABS: Hematocrit 34.7 % (37.0-47.0); Hemoglobin 11.1 g/dl (12.0-16.0); Imm Gran Abs Auto 0.02 X10*3/uL (0.00-0.03); Imm Gran Pct Auto 0.3 % (0.0-0.4); Lymphocytes Absolute Auto 2.0 X10*3/uL (1.2-4.9); Mean Corpuscular HGB Conc 32.0 g/dl (31.0-35.0); Mean Corpuscular Hemoglobin 27.8 pg (27.0-33.0); Mean Corpuscular Volume 87.0 fL (80.0-98.0); NRBC Abs Auto 0.000 X10*3/uL (0.0-0.012); NRBC Pct Auto 0.0 /100WBC (0.0-0.2); Platelet Count 302 X10*3/uL (160-400); Red Blood Count 3.99 X10*6/uL (4.20-5.50); White Blood Count 6.7 X10*3/uL (4.8-10.8)
[2025-07-05 18:22] LABS: Microalbum/Creatinine Ratio Ur 19.2 ug/mg cr (<30); Protein/Creatinine Ratio, Ur 0.09 (<0.2); Total Protein Urine Random 13 mg/dL (<12)
[2025-07-05 18:38] LABS: Parathyroid Hormone Intact 83.8 pg/mL (8.7-77.1)
== END 2025-07-05 13:53 | disposition home or self-care (01) ==
LOC: HO.CHCLDS 13:52
PROVIDERS: PCP Internal Medicine; Visit Provider Internal Medicine Nephrology
DX: I12.9 Hypertensive chronic kidney disease with stage 1 through stage 4 chronic kidney disease, or unspecified chronic kidney disease (principal); N18.2 Chronic kidney disease, stage 2 (mild); D63.1 Anemia in chronic kidney disease
CPT/HCPCS: 36415; 80051; 82043; 82310; 82565; 82570; 83970; 84156; 84520; 85025

== ENCOUNTER 2025-07-20 15:27 | Outpatient (REF) | payer OTHER, SELFPAY ==
--- OUTSIDE RECORDS SUMMARY | 2025-07-15 23:21 | XMS_ITS | Encounter Summary ---
Author Organization [facility] Address [address] [place] [address] Care Team Providers Care Planer Offbearer Name Role Phone Andriy Scott Primary Care Provide r Reason for Visit * Reason Comments Hypertension Encounter Details Date Type Department Care Team ([facility] Contact Info) Description 07/15/2025 11:21 PM EDT - 07/16/2025 11:19 AM EDT Emergency [facility] Emergency [address] [place] [phone] Adriel Nguyen MD [address] [facility] [address] [place], [place] [id number] Jian Fay MD [address] [place] [address] [place] [id number] Hypertension, unspecified type (Primary Dx) Discharge Disposition: Home or Self Care Social [...] Orientation Straight 11/23/2024 3: 36 PM EST documented as of this encounter Last Filed Vital Signs Vital Sign Reading Time Taken Comments Blood Pressure 156/55 07/16/2025 10:16 AM EDT Pulse 47 07/16/2025 10:16 AM EDT Temperature 36.4 C (97.5 F) 07/16/2025 10:16 AM EDT Respiratory Rate 15 07/16/2025 10:16 AM EDT Oxygen Saturation 98% 07/16/2025 10:16 AM EDT Inhaled Oxygen Concentration - - Weight 70.8 kg (156 lb) 07/16/2025 8:22 AM EDT Height 152.4 cm (5') 07/15/2025 11:52 PM EDT Body Mass Index 30.47 07/15/2025 11:52 PM EDT documented in this encounter Discharge Instructions * Discharge Instructions* Adriel Nguyen MD - 07/16/2025 8:10 AM EDT Follow-up with your primary care provider and child care associate teacher as soon as possible A we discussed return the emergency department immediately if your symptoms worsen or do not get better if you experience new or worsening uncontrolled pain, vision changes, lightheadedness, dizzinesss, chest pain, shortness of breath, recurrent nausea and or vomiting, unable to eat or drink, or for any other reason. Even though you have been discharged from the Emergency Department, there are several things that you should do to ensure that you receive proper care: 1. DO READ your discharge instructions as these contain important information concerning your medical care. 2. If medication has been prescribed for your condition, fill the prescription as soon as possible and follow the directions on the medication. 3. RETURN AT ONCE TO THE EMERGENCY DEPARTMENT if you have any problems or concerns. These include but are not limited to fever, worsening pain(belly, chest, head, etc...), worsening shortness of breath, uncontrollable bleeding, inability to tolerate food and water, or any condition that makes you question your well-being. Also, if your symptoms do not improve in the next 12-24 hours, return to the ER or seek medical care immediately. 4. Be sure to follow up with your regular physician or specialist as instructed at discharge as this is the best way to ensure that you receive the very best of care. If you do not have a primary care physician, please contact a physician group and make an appointment. 5. Please visit [employer] for coupons regarding your prescriptions. It is a free service for you to use and can help reduce the cost of your medication. We would like to thank you for coming today and our hope is that we served you and your family wellduring your stay * Attachments The following attachments cannot be sent through Care Everywhere. * High Blood Pressure: The DASH Diet: Video (Senegalese) documented in this encounter Medications at Time of Discharge albuterol HFA (PROAIR HFA ; PROVENTIL HFA ; VENTOLIN HFA) 90 mcg/actuation inhaler Inhale 2 puffs by mouth every 4 (four) hours if needed. aspirin 81 mg EC tablet 81 mg. 5 calcium carbonate-vitamin D3 600 mg-12.5 mcg (500 unit) capsule Take 1 tablet by mouth 1 (one) time each day. carvediloL (COREG) 6.25 mg tablet Take 1 tablet (6.25 mg total) by mouth 2 (two) times a day with meals. 60 each 5 5 06/29/20 26 cetirizine (ZyrTEC) 10 mg chewable tablet Chew 1 (one) time each day. cholecalciferol (VITAMIN D-3) 25 mcg (1,000 unit) tablet Take 1 tablet (1,000 Units total) by mouth 1 (one) time each day. dulaglutide (Trulicity) 0.75 mg/0.5 mL pen injector injection Inject into the skin. ferrous gluconate (FERGON) 324 mg (37.5 mg iron) tablet Take 1 tablet (324 mg total) by mouth 1 (one) time each day. 4 fluticasone HFA (FLOVENT HFA) 110 mcg/actuation inhaler Inhale 1 puff by mouth 2 (two) times a day. 5 isosorbide mononitrate (IMDUR) 30 mg 24 hr tablet Take 1 tablet (30 mg total) by mouth 1 (one) time each day. Do not crush or chew. loratadine (CLARITIN) 10 mg tablet 10 mg. 6 montelukast (SINGULAIR) 10 mg tablet Take 1 tablet (10 mg total) by mouth at bedtime. multivit with min-folic acid (Adult Multivitamin Gummies) 200 mcg tablet,chewable Chew 1 tablet 1 (one) time each day. nitroglycerin (NITROSTAT) 0.4 mg SL tabletIndications :Coronary artery disease involving [place] coronary artery of [place] heart without angina pectoris Place 1 tablet (0.4 mg total) under the tongue every 5 (five) minutes if needed for chest pain. 26 tablet 3 5 omeprazole (PriLOSEC) [address] capsule Take 1 capsule (20 mg total) by mouth 1 (one) time each day. Repatha SureClick 140 mg/mL pen injector injection INJECT ONE ML SUBCUTANEOUSLY EVERY 14 DAYS 2 mL 6 5 rosuvastatin (CRESTOR) 20 mg tablet Take 1 tablet (20 mg total) by mouth 1 (one) time each day. spironolactone (ALDACTONE) 50 mg tablet Take 1 tablet (50 mg total) by mouth 1 (one) time each day. 90 each 5 10/14/20 25 valsartan (DIOVAN) 80 mg tablet Take 1 tablet (80 mg total) by mouth 2 (two) times a day. 60 each 5 5 06/29/20 26 documented as of this encounter Ordered Prescriptions Prescription Sig Dispense Quantity Refills Last Filled Start Date End Date spironolactone (ALDACTONE) 50 mg tablet Take 1 tablet (50 mg total) by mouth 1 (one) time each day. 90 each 07/16/2025 10/14/2025 documented in this encounter Discharge Disposition Disposition Code Departure Means Destination Comment s Home or Self Care Pt verbalized understanding of discharge instructions, agreed to plan of care. Denies any questions at this time. Advised to return to ED if symptoms worsen. documented in this encounter Progress Notes * Ashleigh Montano RN - 07/16/2025 8:43 AM EDT Cardiology at bedside. * Jian Fay MD - 07/16/2025 8:22 AM EDT ED Course as of 07/17/25 1241 SatJul 16, 2025 0107 EKG sinus rate cardia 53 bpm, intervals within normal limits, normal axis, no sign of acute ischemia. Compared with prior similar. [RT] 0544 XR Chest 1 View My preliminary interpretation of chest x-ray concerning for possible mild vascular congestion, no obvious large effusion, pneumothorax or large consolidation. Pending final radiology interpretation. [RT] 0545 CT Angio Head/Neck wo and/or w Contrast IMPRESSION: 1. No acute intracranial hemorrhage or territorial infarction. 2. Patent head and neck CTA. If clinical concern persists consider follow-up MRI. 3. Craniocervical arterial stenoses, please see above Carotid bifurcations with mild less than 50% stenosis. Mild to moderate stenosis proximal left vertebral artery just distal to its origin. No irregularity distal left V2 segment vertebral artery. 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 Stenosis in one of the anterior branches of the left MCA. See full report for all incidental findings. [RT] 0546 Labs were reviewed today notable for no leukocytosis or anemia, no significant electrolyte derangements, negative troponin, negative BNP, UA small leuk esterase, negative nitrates, negative bacteria. [RT] 0822 Patient was signed out to me pending a call from Dr. Becker to review blood pressure medications. As the patient has had multiple bounce backs. Will refer to outpatient neurosurgery regarding CT imaging. [JL] [address] Becker of cardiology and agrees to increase spironolactone to 50 mg and check BMP on Saturday. [JL] 1049 Imaging is negative [JL] ED Course User Index [JL] Jian Fay MD [RT] Adriel Nguyen MD Clinical Impressions as of 07/17/25 1241 Hypertension, unspecified type Data Unavailable 1. Hypertension, unspecified type Procedures * Maria Isabel Sahu RN - 07/15/2025 11:35 PM EDT Pt brought in by EMS from home with c/o htn and a posterior head ache. Pt a&ox4, ambulatory at baseline and was able to take a couple assisted steps to the stretcher with EMS.. * Adriel Nguyen MD - 07/15/2025 11:18 PM EDT HPI Chief Complaint Patient presents with Hypertension Patient is a 79-year-old female with history of diabetes, hypertension, CKD presenting with blood pressure, posterior headache, dyspnea on exertion, and left-sided chest pain. Patient states over thelast week she has been having intermittent dyspnea on exertion, intermittent left-sided chest pain is nonradiating described as a weak heart. This afternoon she started having a posterior headache.Patient denies taking any medications for the pain. Per chart review patient is on carvedilol 6.25 mg, valsartan 80 mg Denies fever, chills, neck stiffness, nausea, vomiting, diarrhea, abdominal pain, motor weakness. Patient has chronic s paresthesias ensation changes to the left lower extremity that is unchanged, she states she has had this for several years. Denies back pain today. Currently no chest pain or shortness of breath. No data recorded Patient History Past Medical History: Diagnosis Date Chest pain DX:Chest pain Chronic gastritis 02/09/2016 DX:Chronic gastritis Diverticulosis 04/29/2018 DX:Diverticulosis Hyperlipidemia 11/26/2018 DX:Hyperlipidemia Internal hemorrhoids 09/05/2015 DX:Internal hemorrhoids Kidney disease DX:Kidney disease Past Surgical History: Procedure Laterality Date HYSTERECTOMY PROCEDURE: HISTORICAL HYSTERECTOMY OTHER SURGICAL HISTORY PROCEDURE: HISTORY OTHER; COMMENT: oophorectomy, TUBAL LIGATION PROCEDURE: HISTORICAL TUBAL LIGATION Family History Problem Relation Name Age of Onset Hypertension Mother Heart failure Father Heart failure Sister Heart failure Brother Social History Tobacco Use Smoking status: Never Smokeless tobacco: Never Vaping Use Vaping status: Never Used Substance Use Topics Alcohol use: Never Drug use: Never Review of Systems Review of Systems Physical Exam ED Triage Vitals [07/15/25 2352] Temp Heart Rate Resp BP 36.5 ??C (97.7 ??F) 52 16 (!) 190/64 SpO2 Temp Source Heart Rate Source Patient Position 97 % Oral Monitor Sitting BP Location FiO2 (%) Left arm -- Physical Exam Vitals and nursing note reviewed. Constitutional: General: She is not in acute distress. Appearance: She is not ill-appearing. HENT: Head: Normocephalic and atraumatic. Right Ear: External ear normal. Left Ear: External ear normal. Nose: Nose normal. Mouth/Throat: Mouth: Mucous membranes are moist. Pharynx: Oropharynx is clear. Eyes: Extraocular Movements: Extraocular movements intact. Pupils: Pupils are equal, round, and reactive to light. Cardiovascular: Rate and Rhythm: Normal rate and regular rhythm. Pulses: Normal pulses. Radial pulses are 2+ on the right side and 2+ on the left side. Dorsalis pedis pulses are 2+ on the right side and 2+ on the left side. Heart sounds: Normal heart sounds. Pulmonary: Effort: Pulmonary effort is normal. Breath sounds: Normal breath sounds. No stridor. No wheezing or rhonchi. Abdominal: General: There is no distension. Tenderness: There is no abdominal tenderness. There is no right CVA tenderness, left CVA tendernessor guarding. Musculoskeletal: General: Normal range of motion. Cervical back: Normal range of motion and neck supple. Right lower leg: No edema. Left lower leg: No edema. Skin: General: Skin is warm and dry. Capillary Refill: Capillary refill takes less than 2 seconds. Findings: No rash. Neurological: General: No focal deficit present. Mental Status: She is alert and oriented to person, place, and time. Cranial Nerves: No dysarthria or facial asymmetry. Comments: - Neuro: GCS E: 4 V: 5 M: 6 total: 15. CN II-XII grossly in tact. No facial droop, normalspeech. 5/5 equal strength and sensation to light touch intact x all 4 extremities. Normal [id number] b/l. No pronator drift. Grossly non-focal exam. ED Course & MDM ED Course as of 07/17/251821Jul 16, 2025 010 EKG sinus rate cardia 53 bpm, intervals within normal limits, normal axis, no sign of acute ischemia. Compared with prior similar. [RT] 0544 XR Chest 1 View My preliminary interpretation of chest x-ray concerning for possible mild vascular congestion, no obvious large effusion, pneumothorax or large consolidation. Pending final radiology interpretation. [RT] 0545 CT Angio Head/Neck wo and/or w Contrast IMPRESSION: 1. No acute intracranial hemorrhage or territorial infarction. 2. Patent head and neck CTA. If clinical concern persists consider follow-up MRI. 3. Craniocervical arterial stenoses, please see above Carotid bifurcations with mild less than 50% stenosis. Mild to moderate stenosis proximal left vertebral artery just distal to its origin. No irregularity distal left V2 segment vertebral artery. 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 Stenosis in one of the anterior branches of the left MCA. See full report for all incidental findings. [RT] 0546 Labs were reviewed today notable for no leukocytosis or anemia, no significant electrolyte derangements, negative troponin, negative BNP, UA small leuk esterase, negative nitrates, negative bacteria. [RT] 0822 Patient was signed out to me pending a call from Dr. Becker to review blood pressure medications. As the patient has had multiple bounce backs. Will refer to outpatient neurosurgery regarding CT imaging. [JL] [address] Becker of cardiology and agrees to increase spironolactone to 50 mg and check BMP on Saturday. [JL] 1049 Imaging is negative [JL] ED Course User Index [JL] Jian Fay MD [RT] Adriel Nguyen MD Clinical Impressions as of 07/17/25 1822 Hypertension, unspecified type Medical Decision Making Patient is a 79-year-old female presenting with 1 week of dyspnea on exertion, hypertension and headache. Workup is overall reassuring with no signs of endorgan dysfunction. CT of the head and CTA of the head and neck showed no acute process there was an incidental finding of a nonspecific irregularity of the distal left V2 segment that may reflect tiny aneurysm too small to characterize her chronic non occlusive dissection. It is notable that patient's story seem to be consistent. On my initial discussion with patient she was complaining of chest discomfort which she then states she did not have. Multiple discussions it is at times unclear whether patient still has a headache or if it has resolved. I did visualize patient ambulating through the ER unassisted with steady gait in no acute respiratory distress. Given patient's presentation and workup today I have lower suspicion for hypertensive emergency, patient with no signs of AMS, pulmonary edema, heart failure, ACS, PRESS syndrome, intracranial hemorrhage, renal infarction or failure or other end organ damage. Patient has no fever or chills, full range of motion of the neck without stiffness, no leukocytosis. Doubt meningitis or encephalitis. After multimodal pain control control on reevaluation with RN, patient did endorse 0 out of 10 pain metal can inspector #[id number] was used on a follow-up conversation with patient She did endorse improvement of her symptoms 0728 Spoke with pt's daughter Maira. Over the last month pt's blood pressure has been elevated being followed by cardiology. Recently started taking carvedilol on top of her losartan. Last night, pt called 911 because SBP at home was in the 200s. Also 2 prior ER visits to OSH for hypertension and discharged from the ER after improvement of BP. She is sure pt has been compliant with her home medications. We discussed all results and workup today including incidental finding on CT angio of the head and neck that showed a mild luminal irregularity distal left V2 segment vertebral artery. This may reflect tiny aneurysm too small to characterize or chronic occlusive dissection. We discussed that if there is an aneurysm there is a possibility of subarachnoid hemorrhage although given the nonspecific finding, patient's improvement of her headache and non focal neurological exam, it is less likely. I suspect her headache is secondary to her hypertension which has been improving. We discussed risks vs benefits of doing a lumbar puncture, all questions she was answered, patient's daughter is not interested in having her mother undergo a lumbar puncture today. Kathleen would like patient's child care associate teacher Eugenio contacted for additional recommendations before her mother is discharged. metal can inspector #[id number] I had an additional conversation with patient. I discussed all results and workup today. She statesshe has been feeling weak over the last 4 days and has had multiple visits to the ER for elevated blood pressure. She is not complaining of chest discomfort, shortness of breath or headache at this time. I did discuss LP procedure, risks was benefits. Patient is unable to verbalize via teach back risks to this procedure. She states she would rather her daughter make decision regarding this procedure. Patient signed out to Dr. Fay pending consultation with patient's child care associate teacher who is on-call this morning for medication recs prior to final disposition. Amount and/or Complexity of Data Reviewed Independent Historian: caregiver External Data Reviewed: notes. Labs: Decision-making details documented in ED Course. Radiology: Decision-making details documented in ED Course. ECG/medicine tests: Decision-making details documented in ED Course. Procedures Adriel Nguyen MD 07/16/25 0103 Adriel Nguyen MD 07/16/25 0630 Adriel Nguyen MD 07/16/25 0758 Adriel Nguyen MD 07/16/25 0822 Adriel Nguyen MD 07/17/25 1832 documented in this encounter Consult Notes * Santi Becker MD - 07/16/2025 9:25 AM EDTAssociated Order(s): IP CONSULT TO CARDIOLOGY Mrs. Hartman is well-known to me. I spoke to her with the aid of the international guest coordinator over the Internet. She has a history of difficult to control hypertension. Stenting to the RCA in 2015 and a previous stent to the LAD. Normal cardiac function. I last saw her in the office on June 15 and she was doing well. She was here in March of this year with elevated blood pressure. Normal high- sensitivity troponin and normal BNP. She is followed with [facility] vascular surgery. She has subclavian stenosis and had a stent placed and had a brachial cutdown and repair this was back in December 2023. When I saw her in the office in May her blood pressure was 138/70. Now she comes in with back pain upper and lower back pain. That has been going on for for 5 days. Also an occipital headache. And her blood pressure at home was very high over 200 systolic. She is followed by nephrology as well. Her current medication list includes Diovan which was 80 twice a day. There is been some confusion from about her medications. And we have her on Coreg 6.25 twice daily. She gets her meds at the [facility] pharmacy. According to my notes she is on Aldactone 12.5 daily but apparently according to her she is taking a whole tablet of 25 mg also Cardura 4 mg. So she is on a host of medications. Also on isosorbide 30. Aspirin and Plavix. At the end of our interview with the international guest coordinator she told me she has been having abdominal pain constantly for 4 to 5 days that gets more severe when she has to have a bowel movement. She looks comfortable now. Her blood pressure at 843 was 154/57 down from a high of 199/78 earlier this morning. Pulse is in the 50s and sinus bradycardia HEENT normal Lungs clear Heart sounds without murmur rub or gallop Abdomen soft nontender with normal bowel sounds Extremities free of clubbing cyanosis or edema Neuroexam normal. ANO x 3. Her electrolytes are normal BUN 28 creatinine 0.9. CBC normal urinalysis was unremarkable. CTA of head and neck calcified atheromatous plaque along the aortic arch. Stent graft noted in the origin of the left subclavian artery is patent. Scattered atherosclerotic plaques through the branchvessels of the aortic arch. Calcified atheromatous plaque in the carotid bifurcations with mild less than 50% stenosis. Mild to moderate stenosis proximal left vertebral artery just distal to its origin. Mild luminal irregularity in distal left V2 segment of vertebral artery. Finding may reflect tiny aneurysm too small to characterize or chronic nonocclusive dissection. Vertebral artery is patentdistally. Ectasia along the distal right V2 segment of the vertebral artery. Cervical arteries are patent. Infundibulum noted in the left superior cerebellar artery origin. High-grade stenosis in oneof the anterior branches of the left MCA. Cerebral arteries are patent. No intracranial arterial aneurysm. No abnormal intracranial enhancement. There were phone calls from our office on the saying that she got a prescription from a [facility] for valsartan 80 a day when we already had her on 80 twice a day. Blood pressure is very difficult. Might be more efficacious to increase the spironolactone to 50 mga day. She is seeing Dr. Winkler on Saturday. Will have her get a basic metabolic profile then. Eliseo not think she needs to stay in the hospital. Before she leaves she is going to get a CT of the abdomen and pelvis because of the discomfort. 90 minutes spent with this patient, her old records, etc. documented in this encounter Plan of Treatment Upcoming Encounters Date Type Department Care Team (Late st Contact Info) Description 08/09/2025 10:30 AM EDT Office Visit Orthopedic Surgery - [place] [address] [facility] [address] [place] [id number] Phan Avalos DPM [address] [place] [address] 10/26/2025 2:40 PM EST Office Visit Gastroenterology - [place] [address] [place] [id number] Shannon Ceron PA [address] [place] [phone] documented as of this encounter Procedures Procedure Name Priority Date/Time Associated Diagnosis Comments ECG ANNOTATED 07/19/2025 CT ABDOMEN PELVIS WO CONTRAST STAT 07/16/2025 9:43 AM EDT TROPONIN I HIGH SENSITIVITY STAT 07/16/2025 6:11 AM EDT URINALYSIS WITH REFLEX MICROSCOPIC STAT 07/16/2025 1:59 AM EDT DEE URINE CULTURE TUBE Routine 07/16/2025 1:59 AM EDT URINALYSIS WITH REFLEX MICROSCOPIC STAT 07/16/2025 1:59 AM EDT EXTRA TUBES Routine 07/16/2025 1:[address] ANGIO HEAD/NECK WO AND/OR W CONTRAST STAT 07/16/2025 1:49 AM EDT XR CHEST 1 VIEW STAT 07/16/2025 1:30 AM EDT ECG 12-LEAD STAT 07/16/2025 1:08 AM EDT TROPONIN I HIGH SENSITIVITY STAT 07/16/2025 12:46 AM EDT B-TYPE NATRIURETIC PEPTIDE STAT 07/16/2025 12:46 AM EDT CBC WITH AUTO DIFFERENTIAL STAT 07/15/2025 11:49 PM EDT CBC AND DIFFERENTIAL STAT 07/15/2025 11:49 PM EDT MAGNESIUM STAT 07/15/2025 11:49 PM EDT BASIC METABOLIC PANEL STAT 07/15/2025 11:49 PM EDT documented in this encounter Results * ECG-Annotated (07/19/2025) us Provider Onbase MD ECG ORDERABLES Final Result * CT Abdomen Pelvis wo Contrast (07/16/2025 9:43 AM EDT) Anatomical Region Laterality Modality Body Computed Tomogra phy 07/16/2025 10:1 7 AM EDT Impressions 07/16/2025 10:23 AM EDT No acute findings in the abdomen/pelvis. -------- FINAL REPORT -------- Dictated By: MICHAEL HERNANDEZ Dictated Date: 07/16/2025 10:17 ET Assigned Physician: MICHAEL HERNANDEZ Reviewed and Electronically Signed By: MICHAEL HERNANDEZ Signed Date: 07/16/2025 10:23 ET Workstation ID: [id number] Transcribed By: Self Edit Transcribed Date: 07/16/2025 10:17 ET Narrative 07/16/2025 10:23 AM EDT PROCEDURE: CT abdomen/pelvis INDICATION: Pain TECHNIQUE: CT of the abdomen and pelvis without contrast. Multiplanar reformats. The examination was performed utilizing dose reduction techniques. Total DLP 932 COMPARISON: 12/18/2024 FINDINGS: LOWER THORAX: Bibasilar atelectasis. Small hiatal hernia. Coronary artery calcifications. HEPATOBILIARY: No focal liver lesions. Cholelithiasis. No biliary duct dilatation. SPLEEN: No splenomegaly. PANCREAS: No focal mass or ductal dilatation. ADRENALS: No nodules. KIDNEYS/URETERS: Contrast excretion seen in the kidneys. No hydronephrosis. PELVIC ORGANS/BLADDER: Contrast within the bladder. Hysterectomy. PERITONEUM / RETROPERITONEUM: No ascites or free air. No retroperitoneal lymphadenopathy. VESSELS: Severe calcifications throughout the abdominal aorta and its major branches. Calcified plaque at the right common iliac artery origin results in at least moderate stenosis. GI TRACT: Colonic diverticulosis. Normal appendix. Moderate stool throughout the colon. BONES AND SOFT TISSUES: Small fat-containing periumbilical hernia. Degenerative changes seen throughout the bones. Procedure Note Michael Hernandez MD - 07/16/2025 PROCEDURE: CT abdomen/pelvis INDICATION: Pain TECHNIQUE: CT of the abdomen and pelvis without contrast. Multiplanarreformats. The examination was performed utilizing dose reductiontechniques. Total DLP 932 COMPARISON: 12/18/2024 FINDINGS: LOWER THORAX: Bibasilar atelectasis. Small hiatal hernia. Coronaryartery calcifications. HEPATOBILIARY: No focal liver lesions. Cholelithiasis. No biliary ductdilatation. SPLEEN: No splenomegaly. PANCREAS: No focal mass or ductal dilatation. ADRENALS: No nodules. KIDNEYS/URETERS: Contrast excretion seen in the kidneys. Nohydronephrosis. PELVIC ORGANS/BLADDER: Contrast within the bladder. Hysterectomy. PERITONEUM / RETROPERITONEUM: No ascites or free air. No retroperitoneallymphadenopathy. VESSELS: Severe calcifications throughout the abdominal aorta and itsmajor branches. Calcified plaque at the right common iliac artery originresults in at least moderate stenosis. GI TRACT: Colonic diverticulosis. Normal appendix. Moderate stoolthroughout the colon. BONES AND SOFT TISSUES: Small fat-containing periumbilical hernia.Degenerative changes seen throughout the bones. IMPRESSION: No acute findings in the abdomen/pelvis. -------- FINAL REPORT -------- Dictated By: MICHAEL HERNANDEZ Dictated Date: 07/16/2025 10:17 ET Assigned Physician: MICHAEL HERNANDEZ Reviewed and Electronically Signed By: MICHAEL HERNANDEZ Signed Date: 07/16/2025 10:23 ET Workstation ID: [id number] Transcribed By: Self Edit Transcribed Date: 07/16/2025 10:17 ET us Jian Fay MD IM CT PROCEDURES Final Res ult * Troponin I high sensitivity (07/16/2025 6:11 AM EDT) High Sensitivity Troponin I 51 <=54 ng/L LAB CHEMISTRY METHOD 07/16/2025 6:56 AM EDT [facility] Blood Venous blood specimen / Unknown Venipuncture / Unknown 07/16/2025 6:11 AM EDT 07/16/2025 6:23 AM EDT Narrative [facility] - 07/16/2025 6:56 AM EDT High levels of biotin in samples may falsely decrease hsTroponin values. Use caution when interpreting hsTroponin results in patients taking biotin who exhibit renal impairment (eGFR <60) or in patients taking more than 20 mg/day of biotin. us Adriel Nguyen MD LAB BLOOD ORDERABLES Final Resul t Performing Organization Address [facility] Co de Phone Number [facility] [address] [place] [address], [place] [phone] * Dee urine culture tube (07/16/2025 1:59 AM EDT) [facility] Extra Tube Hold for add-ons. 07/16/2025 4:01 AM EDT [facility] Comment:Auto resulted. Urine Urine specimen obtained by clean catch procedure / Unknown Non-blood Collection / Unknown 07/16/2025 1:59 AM EDT 07/16/2025 2:59 AM EDT us Adriel Nguyen MD LAB URINE ORDERABLES Final Resul t Performing Organization Address [facility] de Phone Number [facility] [address] [place] [address], [place] [phone] * (ABNORMAL) Urinalysis with reflex microscopic (07/16/2025 1:59 AM EDT) [facility] Specific [place] Urine 1.009 1.003 - 1.030 LAB URINALYSIS - AUTOMATED METHOD 07/16/2025 3:10 AM EDT [facility] pH, Urine 7.0 5.0 - 8.0 pH LAB URINALYSIS - AUTOMATED METHOD 07/16/2025 3:10 AM EDT [facility] Leukocytes, Urine Small(A) Negative LAB URINALYSIS - AUTOMATED METHOD 07/16/2025 3:10 AM EDT [facility] Nitrite, Urine Negative Negative LAB URINALYSIS - AUTOMATED METHOD 07/16/2025 3:10 AM EDT [facility] Protein, Urine Negative <=Trace mg/dL LAB URINALYSIS - AUTOMATED METHOD 07/16/2025 3:10 AM [facility] Glucose, Urine Negative Negative mg/dL LAB URINALYSIS - AUTOMATED METHOD 07/16/2025 3:10 AM [facility] Ketones, Urine Negative Negative mg/dL LAB URINALYSIS - AUTOMATED METHOD 07/16/2025 3:10 AM [facility] Urobilinogen, Urine 0.2 0.2 - 1.0 mg/dL LAB URINALYSIS - AUTOMATED METHOD 07/16/2025 3:10 AM [facility] Bilirubin, Urine Negative Negative LAB URINALYSIS - AUTOMATED METHOD 07/16/2025 3:10 AM [facility] Blood, Urine Negative Negative LAB URINALYSIS - AUTOMATED METHOD 07/16/2025 3:10 AM [facility] RBC, Urine 1.5 0 - 4 /HPF LAB URINALYSIS - AUTOMATED METHOD 07/16/2025 3:10 AM [facility] WBC, Urine 4.4(H) 0 - 4 /HPF LAB URINALYSIS - AUTOMATED METHOD 07/16/2025 3:10 AM [facility] Squamous Epithelial, Urine 8 0 - 60 /LPF LAB URINALYSIS - AUTOMATED METHOD 07/16/2025 3:10 AM [facility] Bacteria, Urine Negative Negative /HPF LAB URINALYSIS - AUTOMATED METHOD 07/16/2025 3:10 AM [facility] Hyaline Casts, Urine 0.0 0 - 3 /LPF LAB URINALYSIS - AUTOMATED METHOD 07/16/2025 3:10 AM [facility] Urine Urine specimen obtained by clean catch procedure / Unknown Non-blood Collection / Unknown 07/16/2025 1:59 AM EDT 07/16/2025 2:59 AM EDT us Adriel Nguyen MD LAB URINE ORDERABLES Final Resul t [facility] [address] [place] [address], * CT Angio Head/Neck wo and/or w Contrast (07/16/2025 1:49 AM EDT) Anatomical Region Laterality Modality Head and Neck Computed Tomogra phy 07/16/2025 2:48 AM EDT Impressions 07/16/2025 2:48 AM EDT 1. No acute intracranial hemorrhage or territorial infarction. 2. Patent head and neck CTA. If clinical concern persists consider follow-up MRI. 3. Craniocervical arterial stenoses, please see above This document has been electronically signed by: Richard Tam MD on 07/16/2025 02:48:11 Narrative 07/16/2025 2:48 AM EDT INDICATION: headache CT Head without contrast. CT angiography head and neck with contrast. 3D Postprocessing. Comparison: None provided Findings: HEAD CT: Scattered subcortical and periventricular hypoattenuation, likely in keeping with chronic small vessel ischemic disease. Parenchymal volume loss with compensatory prominence of the ventricles and CSF spaces. No acute territorial infarction, intracranial hemorrhage, midline shift or hydrocephalus. Polypoid mucosal thickening in the maxillary sinuses. Tortuosity of the left optic nerve, nonspecific. There is no acute fracture. HEAD AND NECK CTA: Calcified atheromatous plaque along the aortic arch. Stent graft noted in the origin of the left subclavian artery, patent. Scattered atheromatous plaques throughout the branch vessels of the aortic arch. Calcified atheromatous plaques in the bilateral carotid bifurcations results in mild less than 50% stenoses. Idzf-fd-cdenjxnm stenoses proximal left vertebral artery just distal to its origin. Mild luminal irregularity distal left V2 segment vertebral artery, axial series 7, image 109-113. Finding may reflect tiny aneurysms too small to characterize or chronic nonocclusive dissection. Vertebral artery is patent proximally distally. Ectasia along the distal right V2 segment vertebral artery. Cervical arteries are patent. Infundibulum noted in the left superior cerebellar artery origin. High-grade stenoses in one of the anterior branches of the left MCA. Cerebral arteries are patent. No intracranial arterial aneurysms. No abnormal intracranial enhancement. The visualized thyroid gland is unremarkable. No cervical mass or fluid collection. Lung apices clear. Multilevel spondylosis with osteophytosis, uncovertebral hypertrophy, facet arthropathy and degenerative disc disease. Anterolisthesis at C4-C5 and C6-C7. Diffuse heterogeneous sclerosis and lucencies throughout the visualized spine, nonspecific. Cavum septum pellucidum and vergae. Procedure Note Richard Tam MD - 07/16/2025 INDICATION: headache CT Head without contrast. CT angiography head and neck with contrast. 3D Postprocessing. Comparison: None provided Findings: HEAD CT: Scattered subcortical and periventricular hypoattenuation, likely in keeping with chronic small vessel ischemic disease. Parenchymal volume loss with compensatory prominence of the ventricles and CSF spaces. No acute territorial infarction, intracranial hemorrhage, midline shift or hydrocephalus. Polypoid mucosal thickening in the maxillary sinuses. Tortuosity of the left optic nerve, nonspecific. There is no acute fracture. HEAD AND NECK CTA: Calcified atheromatous plaque along the aortic arch. Stent graft notedin the origin of the left subclavian artery, patent. Scattered atheromatous plaques throughout the branch vessels of the aortic arch. Calcified atheromatous plaques in the bilateral carotid bifurcations results inmild less than 50% stenoses. Awgm-od-maghnrev stenoses proximal leftvertebral artery just distal to its origin. Mild luminal irregularity distal leftV2 segment vertebral artery, axial series 7, image 109-113. Finding may reflect tiny aneurysms too small to characterize or chronic nonocclusive dissection. Vertebral artery is patent proximally distally. Ectasiaalong the distal right V2 segment vertebral artery. Cervical arteries are patent. Infundibulum noted in the left superior cerebellar arteryorigin. High-grade stenoses in one of the anterior branches of the left MCA. Cerebral arteries are patent. No intracranial arterial aneurysms. No abnormal intracranial enhancement. The visualized thyroid gland is unremarkable. No cervical mass or fluid collection. Lung apices clear. Multilevel spondylosis with osteophytosis, uncovertebral hypertrophy, facet arthropathy and degenerative disc disease. Anterolisthesis atC4-C5 and C6-C7. Diffuse heterogeneous sclerosis and lucencies throughout the visualized spine, nonspecific. Cavum septum pellucidum and vergae. IMPRESSION: 1. No acute intracranial hemorrhage or territorial infarction. 2. Patent head and neck CTA. If clinical concern persists consider follow-up MRI. 3. Craniocervical arterial stenoses, please see above This document has been electronically signed by: Richard Tam MD on 07/16/2025 02:48:11 Adriel Nguyen MD IMG CT PROCEDURES Final Result * XR Chest 1 View (07/16/2025 1:30 AM EDT) Anatomical Region Laterality Modality Body Radiographic Steph ging 07/16/2025 9:40 AM EDT Impressions 07/16/2025 9:42 AM EDT No acute pulmonary disease. Mild cardiomegaly is stable allowing for improved depth inspiration since the prior study performed 07/20/2015. Code 64652 -------- FINAL REPORT -------- Dictated By: Ernie Johnson Dictated Date: 07/16/2025 09:40 ET Assigned Physician: Ernie Johnson Reviewed and Electronically Signed By: Ernie Johnson Signed Date: 07/16/2025 09:42 ET Workstation ID: [id number] Transcribed By: Self Edit Transcribed Date: 07/16/2025 09:40 ET Narrative 07/16/2025 9:42 AM EDT HISTORY: The patient is an 79-year-old female with chest pain. FINDINGS: Semierect AP radiograph of the chest is tilted to the right. There is levoscoliosis of the thoracolumbar spine, along with degenerative changes, as also demonstrated on the prior examination performed 07/20/2015. The cardiac silhouette remains mildly enlarged. The thoracic aorta is calcified. Depth of inspiration has improved since the prior study. The lungs and costophrenic angles are clear. Procedure Note Ernie Johnson MD - 07/16/2025 HISTORY: The patient is an 79-year-old female with chest pain. FINDINGS: Semierect AP radiograph of the chest is tilted to the right.There is levoscoliosis of the thoracolumbar spine, along with degenerativechanges, as also demonstrated on the prior examination performed07/20/2015. The cardiac silhouette remains mildly enlarged. The thoracicaorta is calcified. Depth of inspiration has improved since the priorstudy. The lungs and costophrenic angles are clear. IMPRESSION: No acute pulmonary disease. Mild cardiomegaly is stable allowing forimproved depth inspiration since the prior study performed 07/20/2015. Code 94084 -------- FINAL REPORT -------- Dictated By: Ernie Johnson Dictated Date: 07/16/2025 09:40 ET Assigned Physician: Ernie Johnson Reviewed and Electronically Signed By: Ernie Johnson Signed Date: 07/16/2025 09:42 ET Workstation ID: [id number] Transcribed By: Self Edit Transcribed Date: 07/16/2025 09:40 ET Adriel Nguyen MD IMG XR PROCEDURES Final Result * ECG 12 lead (07/16/2025 1:08 AM EDT) Pathologist [facility] Ventricular Rate ECG 53 BPM GEMUSE Atrial Rate 53 BPM GEMUSE P-R Interval 166 ms GEMUSE QRS Duration 86 ms GEMUSE Q-T Interval 430 ms GEMUSE QTc 403 ms GEMUSE P Wave [place] 49 degrees GEMUSE R [place] 15 degrees GEMUSE T [place] 26 degrees GEMUSE ECG Interpretation Sinus bradycardia When compared with ECG of 25-JAN-2021 04:01, No significant change was found Confirmed by LONG BARTHOLOMEW ([id number]) on 07/17/2025 6:40:34 AM GEMUSE 07/16/2025 1:08 AM EDT 07/17/2025 6:40 AM EDT Adriel Nguyen MD ECG ORDERABLES Final Result GEMUSE * B-Type Natriuretic Peptide (BNP) (07/16/2025 12:46 AM EDT) Pathologist [facility] BNP 19 <=100 pcg/mL LAB CHEMISTRY METHOD 07/16/2025 1:39 AM EDT [facility] Blood Venous blood specimen / Unknown Venipuncture / Unknown 07/16/2025 12:46 AM EDT 07/16/2025 1:05 AM EDT us Adriel Nguyen MD LAB BLOOD ORDERABLES Final Resul t Performing Organization Address [facility]/ZIP Co de Phone Number [facility] [address] [place] [address], [place] [phone] * Troponin I High Sensitivity (07/16/2025 12:46 AM EDT) [facility] High Sensitivity Troponin I 47 <=54 ng/L LAB CHEMISTRY METHOD 07/16/2025 1:57 AM EDT [facility] Blood Venous blood specimen / Unknown Venipuncture / Unknown 07/16/2025 12:46 AM EDT 07/16/2025 1:05 AM EDT Narrative [facility] - 07/16/2025 1:57 AM EDT High levels of biotin in samples may falsely decrease hsTroponin values. Use caution when interpreting hsTroponin results in patients taking biotin who exhibit renal impairment (eGFR <60) or in patients taking more than 20 mg/day of biotin. us Adriel Nguyen MD LAB BLOOD ORDERABLES Final Resul t Performing Organization Address [facility] de Phone Number [facility] [address] [place] [address], [place] [phone] * (ABNORMAL) CBC auto differential (07/15/2025 11:49 PM EDT) [facility] WBC 7.7 4.8 - 10.8 K/mcL LAB HEMETOLOGY METHOD 07/16/2025 12:21 AM EDT [facility] RBC 4.20 3.80 - 4.80 M/mcL LAB HEMETOLOGY METHOD 07/16/2025 12:21 AM EDT [facility] Hemoglobin 11.6 11.5 - 16.0 g/dL LAB HEMETOLOGY METHOD 07/16/2025 12:21 AM [facility] Hematocrit 36.6 35.0 - 47.0 % LAB HEMETOLOGY METHOD 07/16/2025 12:21 AM [facility] MCV 87.4 79.0 - 98.0 FL LAB HEMETOLOGY METHOD 07/16/2025 12:21 AM [facility] MCH 27.7 27.0 - 32.0 pcg LAB HEMETOLOGY METHOD 07/16/2025 12:21 AM [facility] MCHC 31.7(L) 32.0 - 37.0 g/dL LAB HEMETOLOGY METHOD 07/16/2025 12:21 AM [facility] RDW 13.6 11.0 - 15.0 % LAB HEMETOLOGY METHOD 07/16/2025 12:21 AM [facility] Platelets 285 130 - 400 K/mcL LAB HEMETOLOGY METHOD 07/16/2025 12:21 AM [facility] MPV 9.4 7.0 - 11.0 FL LAB HEMETOLOGY METHOD 07/16/2025 12:21 AM [facility] NRBC 0.0 <1.0 % LAB HEMETOLOGY METHOD 07/16/2025 12:21 AM [facility] NRBC Absolute 0.00 <0.10 K/mcL LAB HEMETOLOGY METHOD 07/16/2025 12:21 AM [facility] Neutrophils Relative 57.8 % LAB HEMETOLOGY METHOD 07/16/2025 12:21 AM [facility] Lymphocytes Relative 28.1 % LAB HEMETOLOGY METHOD 07/16/2025 12:21 AM [facility] Monocytes Relative 7.3 % LAB HEMETOLOGY METHOD 07/16/2025 12:21 AM [facility] Eosinophils Relative 6.1 % LAB HEMETOLOGY METHOD 07/16/2025 12:21 AM T [facility] Basophils Relative 0.4 % LAB HEMETOLOGY METHOD 07/16/2025 12:21 AM [facility] Immature Granulocytes Relative 0.3 % LAB HEMETOLOGY METHOD 07/16/2025 12:21 AM [facility] Neutrophils Absolute 4.45 1.50 - 7.00 K/mcL LAB HEMETOLOGY METHOD 07/16/2025 12:21 AM EDT [facility] Lymphocytes Absolute 2.16 1.00 - 5.00 K/mcL LAB HEMETOLOGY METHOD 07/16/2025 12:21 AM [facility] Monocytes Absolute 0.56 0.20 - 1.00 K/mcL LAB HEMETOLOGY METHOD 07/16/2025 12:21 AM [facility] Eosinophils Absolute 0.47 0.00 - 0.50 K/mcL LAB HEMETOLOGY METHOD 07/16/2025 12:21 AM [facility] Basophils Absolute 0.03 0.00 - 0.20 K/mcL LAB HEMETOLOGY METHOD 07/16/2025 12:21 AM [facility] Immature Granulocytes Absolute 0.02 0.00 - 0.03 K/mcL LAB HEMETOLOGY METHOD 07/16/2025 12:21 AM [facility] Blood Venous blood specimen / Unknown Venipuncture / Unknown 07/15/2025 11:49 PM EDT 07/16/2025 12:11 AM EDT us Adriel Nguyen MD LAB BLOOD ORDERABLES Final Resul t [facility] [address] [place] [address], * Magnesium (07/15/2025 11:49 PM EDT) Magnesium 1.9 1.9 - 2.6 mg/dL LAB CHEMISTRY METHOD 07/16/2025 12:35 AM [facility] Blood Venous blood specimen / Unknown Venipuncture / Unknown 07/15/2025 11:49 PM EDT 07/16/2025 12:11 AM EDT Adriel Nguyen MD LAB BLOOD ORDERABLES Final Resul t [facility] [address] [place] [address], [place] [phone] * (ABNORMAL) Basic metabolic panel (07/15/2025 11:49 PM EDT) [facility] Sodium 137 133 - 145 mmol/L LAB CHEMISTRY METHOD 07/16/2025 12:35 AM [facility] Potassium 4.3 3.5 - 5.5 mmol/L LAB CHEMISTRY METHOD 07/16/2025 12:35 AM [facility] Chloride 105 96 - 110 mmol/L LAB CHEMISTRY METHOD 07/16/2025 12:35 AM [facility] CO2 29 21 - 32 mmol/L LAB CHEMISTRY METHOD 07/16/2025 12:35 AM [facility] Anion Gap 3 3 - 11 LAB CHEMISTRY METHOD 07/16/2025 12:35 AM [facility] Glucose 97 70 - 100 mg/dL LAB CHEMISTRY METHOD 07/16/2025 12:35 AM [facility] BUN 28(H) 5 - 25 mg/dL LAB CHEMISTRY METHOD 07/16/2025 12:35 AM [facility] Creatinine 0.91 0.50 - 1.10 mg/dL LAB CHEMISTRY METHOD 07/16/2025 12:35 AM [facility] eGFR 64 >=60 mL/min/1. 73m2 LAB CHEMISTRY METHOD 07/16/2025 12:35 AM EDT [facility] Comment:Calculation based on the Chronic Kidney Disease Epidemiology Collaboration (CKD-EPI) equation refit without adjustment for race. BUN/Creatinine Ratio 30.8 LAB CHEMISTRY METHOD 07/16/2025 12:35 AM EDT [facility] Calcium 9.1 8.5 - 10.5 mg/dL LAB CHEMISTRY METHOD 07/16/2025 12:35 AM EDT [facility] Blood Venous blood specimen / Unknown Venipuncture / Unknown 07/15/2025 11:49 PM EDT 07/16/2025 12:11 AM EDT us Adriel Nguyen MD LAB BLOOD ORDERABLES Final Resul t [facility] [address] [place] [address], documented in this encounter Visit Diagnoses Diagnosis Hypertension, unspecified type- Primary documented in this encounter Administered Medications Inactive Administered Medications - up to 3 most recent administrations Medication Order MAR Action Action Date Dose Rate Site acetaminophen (TYLENOL) tablet 650 mg 650 mg, oral, Once, On Sat07/16/25 at 0103, For 1 dose Given 07/16/2025 1:17 AM EDT 650 mg cloNIDine (CATAPRES) tablet 0.2 mg 0.2 mg, oral, Once, On Sat07/16/25 at 0626, For 1 dose Given 07/16/2025 6:37 AM EDT 0.2 mg iopamidoL (ISOVUE-370) 370 mg iodine /mL (76 %) injection 90 mL 90 mL, intravenous, Once in imaging, Starting on Sat07/16/25 at 0124, For 1 dose Given 07/16/2025 1:31 AM EDT 90 mL ketorolac (TORADOL) injection 15 mg 15 mg, intravenous, Once, On Sat07/16/25 at 0104, For 1 dose Given 07/16/2025 1:17 AM EDT 15 mg metoclopramide (REGLAN) injection 10 mg 10 mg, intravenous, Once, On Sat07/16/25 at 0103, For 1 dose, Doses LESS than or equal to 10 mg can be given IV push undiluted over 1 minute Given 07/16/2025 1:17 AM EDT 10 mg sodium chloride 0.9 % bolus 500 mL 500 mL, intravenous, at 500 mL/hr, Administer over 1 Hours, Once, On Sat07/16/25 at 0103, For 1 dose New Bag 07/16/2025 1:17 AM EDT 500 mL 500 mL/hr sodium chloride 0.9 % flush 10 mL 10 mL, intravenous, Once, On Sat07/16/25 at 0125, For 1 dose Given 07/16/2025 1:31 AM EDT 10 mL documented in this encounter Discontinued Medications Medication Sig Discontinue Reason Start Date End Da te spironolactone (ALDACTONE) 25 mg tablet Take 0.5 Tablets by mouth daily. Formulary change 07/16/2025 documented as of this encounter Active and Recently Administered Medications Times are shown in EDT. Scheduled Medication Order 07/14/2025 07/15/2025 07/16/2025 acetaminophen (TYLENOL) tablet 650 mg (COMPLETED) 650 mg, oral, Once, On Sat07/16/25 at 0103, For 1 dose 0117 (Given - Provid er: Maria Isabel Sahu RN) cloNIDine (CATAPRES) tablet 0.2 mg (COMPLETED) 0.2 mg, oral, Once, On Sat07/16/25 at 0626, For 1 dose 0637 (Given - Provid er: Maria Isabel Sahu RN) iopamidoL (ISOVUE-370) 370 mg iodine /mL (76 %) injection 90 mL (COMPLETED) 90 mL, intravenous, Once in imaging, Starting on Sat07/16/25 at 0124, For 1 dose 0131 (Given - Provid er: Sabino Virgen) ketorolac (TORADOL) injection 15 mg (COMPLETED) 15 mg, intravenous, Once, On Sat07/16/25 at 0104, For 1 dose 0117 (Given - Provid er: Maria Isabel Sahu RN) metoclopramide (REGLAN) injection 10 mg (COMPLETED) 10 mg, intravenous, Once, On Sat07/16/25 at 0103, For 1 dose, Doses LESS than or equal to 10 mg can be given IV push undiluted over 1 minute 0117 (Given - Provid er: Maria Isabel Sahu RN) sodium chloride 0.9 % bolus 500 mL (COMPLETED) 500 mL, intravenous, at 500 mL/hr, Administer over 1 Hours, Once, On Sat07/16/25 at 0103, For 1 dose 0117 (New Bag - Prov ider: Maria Isabel Sahu RN)[id number] (Stopped - Provider: Maria Isabel Sahu RN) sodium chloride 0.9 % flush 10 mL (COMPLETED) 10 mL, intravenous, Once, On Sat07/16/25 at 0125, For 1 dose 0131 (Given - Provid er: Sabino Virgen) documented in this encounter Orders Nursing Count Last Ordered Date First Orde red Date VITAL SIGNS 1 07/15/2025 Consult Count Last Ordered Date First Orde red Date IP CONSULT TO CARDIOLOGY 1 07/16/2025 documented in this encounter Care Teams Planer Offbearer Relationship Specialty Start Date End Date Andriy Scott [address], [place] PCP - General Internal Medicine 12/15/20 documented as of this encounter
--- OUTSIDE RECORDS SUMMARY | 2025-07-20 14:45 | XMS_ITS | Encounter Summary ---
Author Organization [employer] Address [address] [facility] [address] [place] [address] Care Team Providers Care Small Business Sales Representative Name Role Phone Andriy Scott MD Primary Care Prov ider Reason for Referral * Consultation (STAT) - Pending Review Specialty Diagnoses / Procedures Referred By Tiffanie parada Referred To Contact Neurology Diagnoses Abnormal computed tomography angiography of head Disha Riggs CNP [address] [place] [address] Phone: tel: fax: Referral ID Status Reason Start Date Expiration Date Visits Requested Visits Authorized [id number] Pending Review Specialty Services Required 07/20/2025 07/20/2026 1 1 Encounter Details Date Type Department Care Team (Late st Contact Info) Description 07/20/2025 2:45 PM EDT Office Visit [facility] [address] [place], [place] [phone] Disha Riggs CNP [address] [place] [address] Type 2 diabetes mellitus with stage 3a chronic kidney disease, without long-term current use of insulin ([facility]) (Primary Dx); Abnormal computed tomography angiography of head; Other fatigue; Primary hypertension Social History Tobacco Use Types [...] Sign Reading Time Taken Comments Blood Pressure 152/70 07/20/2025 2:45 PM EDT Pulse 56 07/20/2025 2:30 PM EDT Temperature 36.5 C (97.7 F) 07/20/2025 2:30 PM EDT Respiratory Rate 12 07/20/2025 2:30 PM EDT Oxygen Saturation 97% 07/20/2025 2:30 PM EDT Inhaled Oxygen Concentration - - Weight 65.8 kg (145 lb) 07/20/2025 2:30 PM EDT Height 142.2 cm (4' 8 ) 07/20/2025 2:30 PM EDT Body Mass Index 32.51 07/20/2025 2:30 PM EDT documented in this encounter Progress Notes * Disha Riggs CNP - 07/20/2025 2:45 PM EDT Images from the original note were not included. Subjective Patient ID: Amee Hartman is a 79 y.o. female with PMH of diabetes, HTN, CKD who presents for ED f/u. HPI Pt seen at [facility] 07/15/25 for intermittent dyspnea on exertion and left sided chest pain. Also reported posterior headache. EKG showed no sign of acute ischemia. CXR was concerning for possible mild vascular congestion, no large effusion, pneumothorax or large consolidation. Labs showed neg troponin, neg BNP, U/A neg for infection. Due to incidental finding on CT angio of head and neck showing mild luminal irregularity distal left V2 segment vertebral artery, suspicion for small aneurysm. Due to pts improvement of SWANSON and non focal neurological exam, aneurysm is less likely. SWANSON likely r/t uncontrolled HTN . Lumbar puncture was offered but pt and her daughter who is her primary caretaker declined. CT angio head/neck: Pt referred to neuro regarding CT imaging. For blood pressure pt takes carvedilol 6.25mg and valsartan 80mg and spironolactone which was increased to 50 mg during her stay. Today pt is still endorsing posterior headache. She denies diplopia or photosensitivity. She deniesany increase in frequency, severity. Denies thunderclap SWANSON. She denies hearing from neuro. She has been taking her BP meds as prescribed she also has been taking her increased dose of spironolactone. She shows me her home readings today that show avg 130-140s/80s-90s. She denies dizziness,CP, SOB today. Pt sees Dr. Cl Arguello who has been following up with her since her hospitilization. Today she is also complaining of increased fatigue and lack of appetite over past 2 weeks. She reports she has been so tired that she has been unable to attend [facility]. She reports she is eating breakfast and dinner. For physical activity she usually does dancing she likes walking. In 04/28/2025 pt had low Vit B12. Review of Systems Constitutional: Negative for appetite change, chills, diaphoresis, fatigue, fever and unexpected weight change. Respiratory: Negative for apnea, cough, chest tightness, shortness of breath and wheezing. Cardiovascular: Negative for chest pain and palpitations. Gastrointestinal: Negative for abdominal distention, abdominal pain, blood in stool, constipation, diarrhea, nausea and vomiting. Skin: Negative for pallor. Neurological: Positive for headaches. Negative for dizziness, syncope, speech difficulty, weakness,light-headedness and numbness. Psychiatric/Behavioral: Negative. Objective Vitals: 07/20/25 1445 BP: (!) 152/70 Pulse: Resp: Temp: SpO2: Physical Exam Constitutional: Appearance: Normal appearance. She is normal weight. Cardiovascular: Rate and Rhythm: Normal rate and regular rhythm. Pulses: Normal pulses. Heart sounds: Normal heart sounds. No murmur heard. No friction rub. No gallop. Pulmonary: Effort: Pulmonary effort is normal. No respiratory distress. Breath sounds: Normal breath sounds. No wheezing or rales. Neurological: General: No focal deficit present. Mental Status: She is alert and oriented to person, place, and time. Cranial Nerves: Cranial nerves 2-12 are intact. Sensory: Sensation is intact. Motor: Motor function is intact. Coordination: Coordination is intact. Gait: Gait is intact. Deep Tendon Reflexes: Reflex Scores: Patellar reflexes are 2+ on the right side and 2+ on the left side. Psychiatric: Mood and Affect: Mood normal. Behavior: Behavior normal. Thought Content: Thought content normal. Judgment: Judgment normal. Assessment/Plan Problem List Items Addressed This Visit Primary hypertension Relevant Orders Basic Metabolic Panel Today BP was elevated above goal of 130/80, however pt asymptomatic and home readings are at goal. Will order BMP and consider medication dose titration to ensure BP at goal. Discussed low sodium diet and adequate hydration Type 2 diabetes mellitus with stage 3a chronic kidney disease, without long-term current use of insulin ([facility]) - Primary Relevant Orders POCT glucose manually resulted (Completed) Pt A1c at goal of <7 she is no longer in diabetic range, controlled Continue follow up with nephrology and cardiology Fatigue Relevant Orders Vitamin B12/Folate, Serum Panel Vitamin D, 25-Hydroxy, Total, Immunoassay Iron And Total Iron Binding Capacity Pt expressing non specific fatigue over last 2 weeks. I encouraged increasing exercise to also help stimulate appetite. I encouraged adherence to daily multivitamin I will repeat b12, vitamin D, and iron studies to further evaluate her fatigue. 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 ED precautions in place I advised an updated physical with PCP documented in this encounter Plan of Treatment Upcoming Encounters Date Type Department Care Team (Late st Contact Info) Description 07/30/2025 9:30 AM EDT Telemedicine [facility] [address] [place] [address] Andriy Scott MD [address] [place] [address] 10/12/2025 10:45 AM EST Office Visit [facility] [address] [place] [address] Andriy Scott MD [address] [place] [address] Scheduled Orders Name Type Priority Associated Diagnoses Orde r Schedule Vitamin B12/Folate, Serum Panel Lab Routine Other fatigue Expected: 07/20/2025, Expires: 07/20/2026 Vitamin D, 25-Hydroxy, Total, Immunoassay Lab Routine Other fatigue Expected: 07/20/2025 (Approximate), Expires: 07/20/2026 Iron And Total Iron Binding Capacity Lab Routine Other fatigue Expected: 07/20/2025, Expires: 07/20/2026 Basic Metabolic Panel Lab Routine Primary hypertension Expected: 07/20/2025 (Approximate), Expires: 07/20/2026 Scheduled Referrals Name Type Priority Associated Diagnoses Orde r Schedule Referral to Neurology Outpatient Referral STAT Abnormal computed tomography angiography of head Expected: 07/20/2025 (Approximate), Expires: 07/20/2026 documented as of this encounter Goals Goal Patient Goal Type Associated Problems Recent Progress Patient-Stated? Author Blood Pressure < 140/90 Blood Pressure 152/70(2024 2:45 PM EDT) No Mi Alcaraz PharmD Reduce adverse events General No change(2023 1:55 PM EST) Yes Mi Alcaraz PharmD Note: 01/20/24: Patient complaining of leg swelling- ?d/t famotidine? 12/02/23: Patient complaining of feeling tired/weak - ?d/t doxazosin. - This resolved as of 01/20/24 documented as of this encounter Procedures Procedure Name Priority Date/Time Associated Diagnosis Comments POCT GLUCOSE Routine 07/20/2025 2:39 PM EDT Type 2 diabetes mellitus with stage 3a chronic kidney disease, without long-term current use of insulin ([facility]) documented in this encounter Results * POCT glucose manually resulted (07/20/2025 2:39 PM EDT) Glucose Blood, POC 119 60 - 200 mg/dL QC Media Lot # Comment:[id number] Lot# Expiration Date Comment:11/13/2025 Blood Capillary blood specimen / Unknown 07/20/2025 2:39 PM EDT [facility] POINT OF CARE TEST ENTER/ EDIT ORDERABLES Final Result documented in this encounter Visit Diagnoses Diagnosis Type 2 diabetes mellitus with stage 3a chronic kidney disease, without long-term current use of insulin ([facility])- Primary Abnormal computed tomography angiography of head Other fatigue Primary hypertension Unspecified essential hypertension documented in this encounter Additional Health Concerns Assessment Noted Time PHQ-9 Depression Total Score: 0 02/22/20 23 1:22 PM EDT documented as of this encounter Care Teams Small Business Sales Representative Relationship Specialty Start Date End Date Andriy Scott MD [address] [place] [phone] PCP - General Internal Medicine 04/05/20 documented as of this encounter
--- OUTSIDE RECORDS SUMMARY | 2025-07-20 16:23 | XMS_ITS | Clinical Summary ---
Author Organization [address] [place] [address] Address [address] [place] [address] Phone Care Team Providers Care Spray Dyer Name Role Phone Andriy Scott Primary Care [...] 1 (one) time each day. Active calcium carbonate-vitam in D3 600 mg-12.5 mcg (500 unit) capsule Take 1 tablet by mouth 1 (one) time each day. Active montelukast (SINGULAIR) 10 mg tablet Take 1 tablet (10 mg total) by mouth at bedtime. Active aspirin 81 mg EC tablet 81 mg. 015 Active fluticasone HFA (FLOVENT HFA) 110 mcg/actuation inhaler Inhale 1 puff by mouth 2 (two) times a day. 015 Active loratadine (CLARITIN) 10 mg tablet 10 mg. 016 Active ferrous gluconate (FERGON) 324 mg (37.5 mg iron) tablet Take 1 tablet (324 mg total) by mouth 1 (one) time each day. 024 Active nitroglycerin (NITROSTAT) 0.4 mg SL tabletIndicatio ns:Coronary artery disease involving keweenaw coronary artery of keweenaw heart without angina pectoris Place 1 tablet (0.4 mg total) under the tongue every 5 (five) minutes if needed for chest pain. 26 tablet 3 025 Active Repatha SureClick 140 mg/mL pen injector injection INJECT ONE ML SUBCUTANEOUSLY EVERY 14 DAYS 2 mL 6 Active cetirizine (ZyrTEC) 10 mg chewable tablet Chew 1 (one) time each day. Active isosorbide [...] (two) times a day. 60 each 5 025 2025 Active carvediloL (COREG) 6.25 mg tablet Take 1 tablet (6.25 mg total) by mouth 2 (two) times a day with meals. 60 each 5 025 2025 Active spironolactone (ALDACTONE) 50 mg tablet Take 1 tablet (50 mg total) by mouth 1 (one) time each day. 90 each 025 2024 Active doxazosin (CARDURA) 2 mg tablet Take 1 tablet (2 mg total) by mouth 1 (one) time each day. 025 Active spironolactone (ALDACTONE) 25 mg tablet Take 0.5 Tablets by mouth daily. 2024 Discontinued(F ormulary change) doxazosin (CARDURA) 4 mg tablet 4 mg. 015 2024 Discontinued valsartan (DIOVAN) 40 mg tabletIndicatio ns:Essential (primary) hypertension TAKE ONE TABLET EVERY MORNING 90 tablet 2 025 2024 Discontinued(D ose adjustment) clopidogreL (PLAVIX) 75 mg tablet Take 1 tablet (75 mg total) by mouth 1 (one) time each day. 2024 Discontinued Active Problems Problem Noted Date Diagnosed Date Subclavian artery stenosis, left ([facility] V24) 0 06/15/2025 History of coronary artery stent placement 06/15 Overview (06/15/2025): Multiple Class 3 severe obesity due t o excess calories with serious comorbidity and body mass index (BMI) of 40.0 to 44.9 in adult ([facility] V24, [facility] V28) 12/15/2024 Assessment & Plan (12/15/2024 4:02 PM EST): Patient is obese. Approaches towards weight loss are discussed, including burning more calories than one takes in by portion control and regular exercise with an emphasis on duration rather than intensity. Peripheral edema 09/01/2024 Fatigue 09/01/2024 Dizziness 09/01/2024 Overview (09/01/2024): Dizziness and lightheadedness Carotid stenosis, bilateral 09/01/2024 Chest pain 11/26/2023 Dyslipidemia 11/26/2023 Stable angina ([facility] V24) 11/26/2023 PAD (peripheral artery disease) ([facility] V24) Overview (09/01/2024): Last Assessment & Plan: Follows with Dr. Bhatia Assessment & Plan (12/15/2024 4:02 PM EST): The patient offers no symptoms; no new concerning findings on exam today. We will continue to monitor this on serial imaging. Continue with efforts towards proper blood pressure and lipid control. Coronary artery disease invo lving keweenaw heart without angina pectoris 12/15/2020 Overview (09/01/2024): [...] Encounters Date Type Department Care Team Description 07/16/2025 Telephone [facility] - [address] [place] [address] Yajaira Jauregui RN 07/15/2025 11:21 PM EDT - 07/16/2025 11:19 AM EDT Emergency [facility] Emergency [address] [place] [phone] Adriel Nguyen MD Landry, Jonathan P, MD Hypertension, unspecified type (Primary Dx) Discharge Disposition: Home or Self Care 07/14/2025 Telephone [facility] - [address] [place] [phone] Santi Becker MD 07/12/2025 Telephone [facility] - [address] [place] [address] Santi Becker MD 06/29/2025 Telephone [facility]iology [address] [place] [address] Santi Becker MD 06/25/2025 Telephone [facility] - [address] [place] [address] Alma Clark MA 06/15/2025 1:00 PM EDT Office Visit [facility] - [address] [place] [address] Santi Becker MD Coronary artery disease involving keweenaw coronary artery of keweenaw heart without angina pectoris (Primary Dx); PAD (peripheral artery disease) ([facility] V24); Primary hypertension; Carotid stenosis, bilateral; Subclavian artery stenosis, left ([facility] V24); History of coronary artery stent placement 05/24/2025 Telephone [facility] - [address] [place] [address] Santi Becker MD from Last 3 Months Surgical History Surgery [...] Mass Index 30.47 07/15/2025 11:52 PM EDT Plan of Treatment Upcoming Encounters Date Type Department Care Team (Late st Contact Info) Description 08/09/2025 10:30 AM EDT Office Visit Orthopedic Surgery - [place] [address] [place] [phone] Phan Avalos DPM [address] [place] [address] 10/26/2025 2:40 PM EST Office Visit Gastroenterology - [place] [address] [facility] [address] [place] [phone] Shannon Ceron PA [address] [place] [address] Health Maintenance Due Date Last Done Comments Diabetes: Annual Foot Exam 1955 Diabetes: Annual Retina Eye Exam 1955 Pneumococcal Vaccine: 50+ Years (1 of 2 - PCV) 1963 RSV Immunization Adult Patients (1 - 1-dose 75+ series) 2019 Falls Risk Assessment 11/03/2022 Medicare Annual Wellness Visit 11/03/2022 Osteoporosis Screening (Bone Density Screening) 11/03/2022 Social Influencers of Health Screening 11/03/2022 COVID-19 Vaccine ( season) 2024 10/30/2021, 04/10/2021, 03/20/2021 Depression Screening 11/25/2024 Influenza Vaccine (#1) 2025 Diabetes: Blood Sugar Control Test (HGBA1C) 01/01/2026 07/01/2025, 12/29/2024, 09/14/2024, Additional history exists Diabetes: Annual Urine Albumin-Creatinine Ratio (uACR) 07/05/2026 07/05/2025, 03/27/2023 Diabetes: Annual GFR (Glomerular Filtration Rate) 07/15/2026 07/15/2025, 03/17/2019, 09/07/2015 Hypertension/CHF/CAD Annual BMP Blood Test 07/15/2026 07/15/2025, 03/17/2019, 09/07/2015 Cholesterol Screening (Lipid Panel) 01/10/2029 01/10/2024, 09/07/2015 [...] HIGH SENSITIVITY STAT 07/16/2025 6:11 AM EDT DEE URINE CULTURE TUBE Routine 07/16/2025 1:59 AM EDT EXTRA TUBES Routine 07/16/2025 1:59 AM EDT URINALYSIS WITH REFLEX MICROSCOPIC STAT 07/16/2025 1:59 AM EDT URINALYSIS WITH REFLEX MICROSCOPIC STAT 07/16/2025 1:[address] ANGIO HEAD/NECK WO AND/OR W CONTRAST STAT 07/16/2025 1:49 AM EDT XR CHEST 1 VIEW STAT 07/16/2025 1:30 AM EDT ECG 12-LEAD STAT 07/16/2025 1:08 AM EDT B-TYPE NATRIURETIC PEPTIDE STAT 07/16/2025 12:46 AM EDT TROPONIN I HIGH SENSITIVITY STAT 07/16/2025 12:46 AM EDT CBC WITH AUTO DIFFERENTIAL STAT 07/15/2025 11:49 PM EDT MAGNESIUM STAT 07/15/2025 11:49 PM EDT BASIC METABOLIC PANEL STAT 07/15/2025 11:49 PM EDT CBC AND DIFFERENTIAL STAT 07/15/2025 11:49 PM EDT from Last 3 Months Results * ECG-Annotated (07/19/2025) us Provider Onbase [...] Signed Date: 07/16/2025 10:23 ET Workstation ID: [id number] Transcribed By: Self Edit Transcribed Date: 07/16/2025 [...] Signed Date: 07/16/2025 10:23 ET Workstation ID: [id number] Transcribed By: Self Edit Transcribed Date: 07/16/2025 10:17 ET us Jian Fay MD IMG CT PROCEDURES Final Res ult * Troponin I high sensitivity (07/16/2025 6:11 AM EDT) Only the most recent of2 resultswithin the time period is included. [facility] High Sensitivity Troponin I 51 <=54 ng/L LAB CHEMISTRY METHOD 07/16/2025 6:56 AM EDT [facility] Blood Venous blood specimen / Unknown Venipuncture / Unknown 07/16/2025 6:11 AM EDT 07/16/2025 6:23 AM EDT Narrative [facility] - 07/16/2025 6:56 AM EDT High levels of biotin in samples may falsely decrease hsTroponin values. Use caution when interpreting hsTroponin results in patients taking biotin who exhibit renal impairment (eGFR <60) or in patients taking more than 20 mg/day of biotin. us Adriel Nguyen MD LAB BLOOD ORDERABLES Final Resul t [facility] [address] [place] [address], [place] [phone] * (ABNORMAL) Urinalysis with reflex microscopic (07/16/2025 1:59 AM EDT) [facility] Specific [place] Urine 1.009 1.003 - 1.030 LAB URINALYSIS - AUTOMATED METHOD 07/16/2025 3:10 AM EDT [facility] pH, Urine 7.0 5.0 - 8.0 pH LAB URINALYSIS - AUTOMATED METHOD 07/16/2025 3:10 AM EDT [facility] Leukocytes, Urine Small(A) Negative LAB URINALYSIS - AUTOMATED METHOD 07/16/2025 3:[address] [facility] Nitrite, Urine Negative Negative LAB URINALYSIS - AUTOMATED METHOD 07/16/2025 3:[address] [facility] Protein, Urine Negative <=Trace mg/dL LAB URINALYSIS - AUTOMATED METHOD 07/16/2025 3:[address] [facility] Glucose, Urine Negative Negative mg/dL LAB URINALYSIS - AUTOMATED METHOD 07/16/2025 3:[address] [facility] Ketones, Urine Negative Negative mg/dL LAB URINALYSIS - AUTOMATED METHOD 07/16/2025 3:[address] [facility] Urobilinogen, Urine 0.2 0.2 - 1.0 mg/dL LAB URINALYSIS - AUTOMATED METHOD 07/16/2025 3:[address] [facility] Bilirubin, Urine Negative Negative LAB URINALYSIS - AUTOMATED METHOD 07/16/2025 3:[address] [facility] Blood, Urine Negative Negative LAB URINALYSIS - AUTOMATED METHOD 07/16/2025 3:[address] [facility] RBC, Urine 1.5 0 - 4 /HPF LAB URINALYSIS - AUTOMATED METHOD 07/16/2025 3:[address] [facility] WBC, Urine 4.4(H) 0 - 4 /HPF LAB URINALYSIS - AUTOMATED METHOD 07/16/2025 3:[address] [facility] Squamous Epithelial, Urine 8 0 - 60 /LPF LAB URINALYSIS - AUTOMATED METHOD 07/16/2025 3:[address] [facility] Bacteria, Urine Negative Negative /HPF LAB URINALYSIS - AUTOMATED METHOD 07/16/2025 3:[address] [facility] Hyaline Casts, Urine 0.0 0 - 3 /LPF LAB URINALYSIS - AUTOMATED METHOD 07/16/2025 3:[address] [facility] Urine Urine specimen obtained by clean catch procedure / Unknown Non-blood Collection / Unknown 07/16/2025 1:59 AM EDT 07/16/2025 2:59 AM EDT us Adirel Nguyen MD LAB URINE ORDERABLES Final Resul t Performing Organization Address [facility]/ZIP Co de Phone Number [facility] [address] [place] [address], [place] [phone] * Dee urine culture tube (07/16/2025 1:59 AM EDT) Extra Tube Hold for add-ons. 07/16/2025 4:01 AM EDT [facility] Comment:Auto resulted. Urine Urine specimen obtained by clean catch procedure / Unknown Non-blood Collection / Unknown 07/16/2025 1:59 AM EDT 07/16/2025 2:59 AM EDT us Adriel Nguyen MD LAB URINE ORDERABLES Final Resul t Performing Organization Address [facility] de Phone Number [facility] [address] [place] [address], [place] [phone] * CT Angio Head/Neck wo and/or w [...] results in mild less than 50% stenoses. [id number] stenoses proximal left vertebral artery just distal [...] bifurcations results inmild less than 50% stenoses. Cruk-[id number] stenoses proximal leftvertebral artery just distal to [...] since the prior study performed 07/20/2015. Code 77945 -------- FINAL REPORT -------- Dictated By: Ernie Johnson Dictated Date: 07/16/2025 09:40 ET Assigned Physician: Ernie Johnson Reviewed and Electronically Signed By: Ernie Johnson Signed Date: 07/16/2025 09:42 ET Workstation ID: [id number] Transcribed By: Self Edit Transcribed Date: 07/16/2025 [...] since the prior study performed 07/20/2015. Code 62223 -------- FINAL REPORT -------- Dictated By: Ernie Johnson Dictated Date: 07/16/2025 09:40 ET Assigned Physician: Ernie Johnson Reviewed and Electronically Signed By: Ernie Johnson Signed Date: 07/16/2025 09:42 ET Workstation ID: [id number] Transcribed By: Self Edit Transcribed Date: 07/16/2025 09:40 ET us Adriel Nguyen MD IMG XR PROCEDURES Final Result * ECG 12 lead (07/16/2025 1:08 AM EDT) Ventricular Rate ECG 53 BPM GEMUSE Atrial Rate 53 BPM GEMUSE P-R Interval 166 ms GEMUSE QRS Duration 86 ms GEMUSE Q-T Interval 430 ms GEMUSE QTc 403 ms GEMUSE P Wave [place] 49 degrees GEMUSE R [place] 15 degrees GEMUSE T [place] 26 degrees GEMUSE ECG Interpretation Sinus bradycardia When compared with ECG of 25-JAN-2021 04:01, No significant change was found Confirmed by LONG BARTHOLOMEW ([id number]) on 07/17/2025 6:40:34 AM GEMUSE 07/16/2025 1:08 AM EDT 07/17/2025 6:40 AM EDT us Adriel Nguyen MD ECG ORDERABLES Final Result Performing Organization Address City/[facility]/ZIP Co de Phone Number GEMUSE * B-Type Natriuretic Peptide (BNP) (07/16/2025 12:46 AM EDT) [facility] BNP 19 <=100 pcg/mL LAB CHEMISTRY METHOD 07/16/2025 1:39 AM EDT [facility] Blood Venous blood specimen / Unknown Venipuncture / Unknown 07/16/2025 12:46 AM EDT 07/16/2025 1:05 AM EDT us Adriel Nguyen MD LAB BLOOD ORDERABLES Final Resul t Performing Organization Address [facility]/ZIP Co de Phone Number [facility] [address] [place] [address], [place] [phone] * (ABNORMAL) CBC auto differential (07/15/2025 11:49 PM EDT) [facility] WBC 7.7 4.8 - 10.8 K/mcL LAB HEMETOLOGY METHOD 07/16/2025 12:21 AM EDT [facility] RBC 4.20 3.80 - 4.80 M/mcL LAB HEMETOLOGY METHOD 07/16/2025 12:21 AM EDT [facility] Hemoglobin 11.6 11.5 - 16.0 g/dL LAB HEMETOLOGY METHOD 07/16/2025 12:21 AM EDT [facility] Hematocrit 36.6 35.0 - 47.0 % LAB HEMETOLOGY METHOD 07/16/2025 12:[address] [facility] MCV 87.4 79.0 - 98.0 FL LAB HEMETOLOGY METHOD 07/16/2025 12:[address] [facility] MCH 27.7 27.0 - 32.0 pcg LAB HEMETOLOGY METHOD 07/16/2025 12:[address] [facility] MCHC 31.7(L) 32.0 - 37.0 g/dL LAB HEMETOLOGY METHOD 07/16/2025 12:[address] [facility] RDW 13.6 11.0 - 15.0 % LAB HEMETOLOGY METHOD 07/16/2025 12:[address] [facility] Platelets 285 130 - 400 K/mcL LAB HEMETOLOGY METHOD 07/16/2025 12:[address] [facility] MPV 9.4 7.0 - 11.0 FL LAB HEMETOLOGY METHOD 07/16/2025 12:[address] [facility] NRBC 0.0 <1.0 % LAB HEMETOLOGY METHOD 07/16/2025 12:[address] [facility] NRBC Absolute 0.00 <0.10 K/mcL LAB HEMETOLOGY METHOD 07/16/2025 12:[address] [facility] Neutrophils Relative 57.8 % LAB HEMETOLOGY METHOD 07/16/2025 12:[address] [facility] Lymphocytes Relative 28.1 % LAB HEMETOLOGY METHOD 07/16/2025 12:[address] [facility] Monocytes Relative 7.3 % LAB HEMETOLOGY METHOD 07/16/2025 12:[address] [facility] Eosinophils Relative 6.1 % LAB HEMETOLOGY METHOD 07/16/2025 12:[address] [facility] Basophils Relative 0.4 % LAB HEMETOLOGY METHOD 07/16/2025 12:21 AM EDT [facility] Immature Granulocytes Relative 0.3 % LAB HEMETOLOGY METHOD 07/16/2025 12:21 AM EDT [facility] Neutrophils Absolute 4.45 1.50 - 7.00 K/mcL LAB HEMETOLOGY METHOD 07/16/2025 12:21 AM EDT [facility] Lymphocytes Absolute 2.16 1.00 - 5.00 K/mcL LAB HEMETOLOGY METHOD 07/16/2025 12:21 AM EDT [facility] Monocytes Absolute 0.56 0.20 - 1.00 K/mcL LAB HEMETOLOGY METHOD [facility] Eosinophils Absolute 0.47 0.00 - 0.50 K/mcL LAB HEMETOLOGY METHOD 07/16/2025 12:[address] [facility] Basophils Absolute 0.03 0.00 - 0.20 K/mcL LAB HEMETOLOGY METHOD 07/16/2025 12:21 AM T [facility] Immature Granulocytes Absolute 0.02 0.00 - 0.03 K/mcL LAB HEMETOLOGY METHOD 07/16/2025 12:[address] [facility] Blood Venous blood specimen / Unknown Venipuncture / Unknown 07/15/2025 11:49 PM EDT 07/16/2025 12:11 AM EDT us Adriel Nguyen MD LAB BLOOD ORDERABLES Final Resul t [facility] [address] [place] [address], * Magnesium (07/15/2025 11:49 PM EDT) Magnesium 1.9 1.9 - 2.6 mg/dL LAB CHEMISTRY METHOD 07/16/2025 12:[address] [facility] Blood Venous blood specimen / Unknown Venipuncture / Unknown 07/15/2025 11:49 PM EDT 07/16/2025 12:11 AM EDT us Adriel Nguyen MD LAB BLOOD ORDERABLES Final Resul t [facility] [address] [place] [address], * (ABNORMAL) Basic metabolic panel (07/15/2025 11:49 PM EDT) Sodium 137 133 - 145 mmol/L LAB CHEMISTRY METHOD 07/16/2025 12:[address] [facility] Potassium 4.3 3.5 - 5.5 mmol/L LAB CHEMISTRY METHOD 07/16/2025 12:[address] [facility] Chloride 105 96 - 110 mmol/L LAB CHEMISTRY METHOD 07/16/2025 12:[address] [facility] CO2 29 21 - 32 mmol/L LAB CHEMISTRY METHOD 07/16/2025 12:[address] [facility] Anion Gap 3 3 - 11 LAB CHEMISTRY METHOD 07/16/2025 12:[address] [facility] Glucose 97 70 - 100 mg/dL LAB CHEMISTRY METHOD 07/16/2025 12:[address] [facility] BUN 28(H) 5 - 25 mg/dL LAB CHEMISTRY METHOD 07/16/2025 12:[address] [facility] Creatinine 0.91 0.50 - 1.10 mg/dL LAB CHEMISTRY METHOD 07/16/2025 12:[address] [facility] eGFR 64 >=60 mL/min/1. 73m2 LAB CHEMISTRY METHOD 07/16/2025 12:[address] [facility] Comment:Calculation based on the Chronic Kidney Disease Epidemiology Collaboration (CKD-EPI) equation refit without adjustment for race. BUN/Creatinine Ratio 30.8 LAB CHEMISTRY METHOD 07/16/2025 12:35 AM EDT [facility] Calcium 9.1 8.5 - 10.5 mg/dL LAB CHEMISTRY METHOD 07/16/2025 12:35 AM EDT [facility] Blood Venous blood specimen / Unknown Venipuncture / Unknown 07/15/2025 11:49 PM EDT 07/16/2025 12:11 AM EDT us Adriel Nguyen MD LAB BLOOD ORDERABLES Final Resul t [facility] ([email or web address] [address] [place] [address], [place] [phone] from Last 3 Months Insurance [facility] MEDICARE Member Subscriber Plan / Payer (Ef fective 2016-Present) Name:WILTON HARTMAN Relation to Subscriber:Self Name:Wilton Hartman Payer ID:[id number] Group ID:[id number] Type:Not on file Address: [place] [place] [address] Care Teams Spray Dyer Relationship Specialty Start Date End Date Andriy Scott [address] [place], [place] PCP - General Internal Medicine 12/15/20
--- OUTSIDE RECORDS SUMMARY | 2025-07-20 16:23 | XMS_ITS | Encounter Summary ---
Author Organization [facility] Address [address] [facility] [address] [place] [address] Phone Care Team Providers Care Seasonal Retail Merchandiser Name Role Phone Andriy Winkler Primary Care Provider [phone] Encounter Details Date Type Department Care Team (Late Contact Info) Description 06/30/2024 Office Communication [facility] [address] [facility] [address] [facility] [address] [place] [address] Tyra Escobedo ARNP [address] [address] Social History Tobacco Use Types [...] Visit [facility] [address] [address] Tyra Escobedo ARNP [address] [address] documented as of this encounter Visit Diagnoses Not on filedocumented in this encounter Care Teams Seasonal Retail Merchandiser Relationship Specialty Start Date End Date Andriy Winkler PCP - General Internal Medicine 03/08/21 documented as of this encounter
--- OUTSIDE RECORDS SUMMARY | 2025-07-20 16:23 | XMS_ITS | Encounter Summary ---
Author Organization [employer] Address [address] [facility] [address] [place] [address] Care Team Providers Care Sql Developer Dba Name Role Phone Andriy Scott MD Primary Care Prov ider Reason for Visit * Reason Onset Date Comments Nurse Triage 12/07/2024 Encounter Details Date Type Department Care Team ([facility] st Contact Info) Description 12/07/2024 Telephone [facility] [address] [place] [address] Andriy Scott MD [address] [place] [address] Nurse Triage Social History Tobacco Use Types [...] 12/07/2024 10:37 AM EST [place] [employer] [place] [id number], 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 Ended call. [place] [employer] [place] [id number], Jacki. Pt reports having Covid 11/28/24 and [...] Info) Description 07/30/2025 9:30 AM EDT Telemedicine [facility] [address] [place] [address] Andriy Scott MD [address] [place] [address] 10/12/2025 10:45 AM EST Office Visit [facility] [address] [place] [address] Andriy Scott MD [address] [place], [place] [phone] documented as of this encounter Goals Goal [...] documented as of this encounter Care Teams Sql Developer Dba Relationship Specialty Start Date End Date WinklerAndriy Gonzalez MD [address] [place] [phone] PCP - General Internal Medicine 04/05/20 documented as of this encounter
--- OUTSIDE RECORDS SUMMARY | 2025-07-20 16:23 | XMS_ITS | Encounter Summary ---
Author Organization [employer] Address [address] [facility] [address] [place] [address] Care Team Providers Care Service Tester Name Role Phone Andriy Scott MD Primary Care Prov ider Encounter Details Date Type Department Care Team ([facility] Contact Info) Description 04/06/2024 Orders Only [facility] [address] [place], [place] [phone] Andriy Scott MD [address] [place] [address] Social History Tobacco Use Types Packs/Day Years [...] the past 12 months, has t he [employer] gas, oil or water company threatened to [...] Info) Description 07/30/2025 9:30 AM EDT Telemedicine [facility] [address] [place], [place] [phone] Andriy Scott MD [address] [place] [address] 10/12/2025 10:45 AM EST Office Visit [facility] [address] [place] [address] Andriy Scott MD [address] [place] [address] documented as of this encounter Goals Goal [...] as of this encounter Care Teams Service Tester Relationship Specialty Start Date End Date Andriy Scott MD [address] [place] [phone] PCP - General Internal Medicine 04/05/20 documented as of this encounter
--- OUTSIDE RECORDS SUMMARY | 2025-07-20 16:23 | XMS_ITS | Encounter Summary ---
Author Organization [facility] Address [address] [place] [address] Encounters * CPT with Medical [facility]ED at [facility] on 2025-07-14 { reasonForRequest : Patient stated at 6am bp 191/86, took meds, then it was 175/80,blood pressure problems. Patient also has stomach problems. weak. , patientReports : Weakness/tachycardia , denies :[ History of Heart Attack, in the setting of active chest pain , Active Chest pain, radiates to neck jaw and or arm , Diaphoretic/Sweating , Describes as crushing , Sudden onset of nausea/Vomitingand shortness of breath. , Shortness of Breath , Unable to speak in full sentences without distress , Palpitations, feeling dizzy , Chest pain, increased fatigue , CHF history, increased swelling and edema ], chiefComplaints : High Blood Pressure , pmh : Hypertension, Coronary Artery Disease, COPD/Asthma, Diabetes Mellitus Type 2, Chronic Kidney Disease, Peripheral Artery Disease , allergies : Penicillins, Amlodipine, Lisinopril , otherAllergies :null, painAssessmen t : , visitOutcome : , additionalComments : 79 y.o female complains of High Blood Pressure\n\nCall completed with a innersole fitter.\n\nBP currently 175/80 after taking morning meds. \nShe reports denying any chest pain, but does have weaknessin her body. \nShe denies any shortness of breath. \nSfely went to the ER on Saturday, for her high BP recently, and they gave her BP pills. She was told to call her PCP, but has not yet. \nShe takes valsartan and two other medications, the names of which she is unsure. \nShe denies any nausea or vomi ting, but her appetite is not good \nShe denies any headaches, but feels unbalanced at times. \nHernormal BP is 120/80's but it usually has been higher now. \nPt has diabetes , last blood sugar 97\n\n\nI provided information on the mobile health provider response time and advised the patient and/or caregiver to monitor reported signs and symptoms. I discussed the warning signs of when to seek emergency care. } Patient alert and oriented complains of fatigue and left side lower abdominal pressure that feels like diverticulitis she???s had in the past. Patient reports last episode more than two years ago unknown treatment. Patient also complains of mild nausea and elevated heart rate earlier. Patient denies any chest pain, palpitations, or other pain or complaints. Patient reports some pain on moving herbowels this morning and says she can elicit pain in her left lower quadrant by pressing her fingersdeeply to her abdomen. Patient pink warm dry secondary exam unremarkable. Lung sounds clear negative increased work of breathing positive full sentences abdomen soft nontender negative CVA tenderness, extremities unremarkable no edema noted. [facility] [place] [place] discusses case with patient on phone. Tests administered as ordered. Patient encouraged to follow up with PCP, report she???ll be able to machine operator hop picker prescribed medication today. Red flags patient education discussed. Patient and caregiver demonstrate understanding of care and plan. Patient asked questions. IV_(FLUIDS_AND/OR_MEDICATION), MEDICATION_IM, ORAL_MEDICATION, EKG, ORTHOSTATIC_VITAL_SIGNS [facility] 2025-07-14
--- OUTSIDE RECORDS SUMMARY | 2025-07-20 16:23 | XMS_ITS | Clinical Summary ---
Author Organization [employer] Address [address] [place] [address] Care Team Providers Care Tip Stitcher Name Role Phone Andriy Scott MD Primary [...] for chest pain. 30 tablet 024 Active TRUEplus Lancets 33G [facility] TEST BLOOD SUGAR TWICE DAILY 100 each 11 024 Active fluticasone (Flonase) 50 MCG/ACT nasal sprayIndications :Non-seasonal allergic rhinitis due to fungal spores Administer 1 spray into each nostril Once per day. Shake gently. Before first use, prime pump. After use, clean tip and replace cap. 16 g 11 025 2025 Active sodium chloride ([place] Nasal [place]) 0.65 % nasal spray Administer 1 spray [...] 60 tablet Active Trulicity 0.75 MG/0.5ML solution auto-injectorInd ications:Type 2 diabetes mellitus with stage 3a chronic kidney disease, without long-term current use of insulin ([facility]) INJECT ONE PEN (=0.75MG) SUBCUTANEOUSLY ONCE A WEEK DIRECTED 2 mL 3 Active Aspirin Low Dose 81 MG chewable tablet CHEW ONE TABLET EVERY MORNING 90 tablet 025 Active Calcium Carb-Cholecalcif jean 500-10 MG-MCG chewable tabletIndication s:Osteopenia of lumbar spine CHEW ONE TABLET EVERY MORNING 90 tablet 025 Active rosuvastatin (Crestor) 20 MG tabletIndication s:Mixed hyperlipidemia TAKE ONE TABLET EVERY NIGHT AT BEDTIME 90 tablet 025 Active spironolactone (Aldactone) 25 MG tabletIndication s:Primary hypertension Take 1 tablet (25 mg) by mouth Once per day. 30 tablet 3 Active carvedilol (Coreg) 6.25 MG tablet Take 6.25 mg by mouth with breakfast and with evening meal. Active valsartan (Diovan) 80 MG tablet Take 80 mg by mouth in the morning and 80 mg in the evening. Active glucose blood (FREESTYLE LITE) test stripIndications :Type 2 diabetes mellitus without complication, without long-term current use of insulin ([facility]) USE TO TEST BLOOD SUGAR TWICE DAILY 100 strip Active doxazosin (Cardura) 2 MG tabletIndication s:Primary hypertension TAKE 1 TABLET BY MOUTH EVERY MORNING 30 tablet Active glucose blood (FREESTYLE LITE) test stripIndications :Type 2 diabetes mellitus without complication, without long-term current use of insulin ([facility]) TEST BLOOD SUGAR TWICE DAILY 100 strip 11 024 2024 Discontinued valsartan (Diovan) 160 MG tablet Take 1 tablet (160 mg) by mouth Once per day. 90 tablet 1 025 2024 Discontinued spironolactone (Aldactone) 25 MG tabletIndication s:Primary hypertension TAKE ONE-HALF TABLET EVERY MORNING 15 tablet 3 025 2024 Discontinued doxazosin (Cardura) 2 MG tabletIndication s:Primary hypertension TAKE ONE TABLET EVERY MORNING 30 tablet 025 2024 Discontinued(R eorder (will not trigger notification to Pharmacy)) spironolactone [...] if not improving Asthma 11/30/2024 CAD in [place] artery 11/30/2024 Class 2 obesity 11/30/2024 Chronic [...] and valsartan 80mg bid sent by her key ringer that she has not started, will increase [...] kidney 02/06/2021 Coronary artery disease invo lving [place] heart without angina pectoris 12/15/2020 Overview (11/30/2024): [...] - Adult Primary Care Assessment & Plan (04/28/2025 [...] Encounters Date Type Department Care Team Description 07/20/2025 2:45 PM EDT Office Visit [facility] MED & PEDS [address], [place] [phone] Disha Riggs, LALITO Type 2 diabetes mellitus with stage 3a chronic kidney disease, without long-term current use of insulin ([facility]) (Primary Dx); Abnormal computed tomography angiography of head; Other fatigue; Primary hypertension 07/20/2025 Travel 07/19/2025 Orders Only [employer] [address] [place] [address] Provider, MD Karen 07/16/2025 Telephone [facility] [address] [place] [address] Andriy Scott MD Increase of medication 07/13/2025 Refill [facility] MED & PEDS [address] [place] [address] Andriy Scott MD Type 2 diabetes mellitus without complication, without long-term current use of insulin (CMS/HCC); Primary hypertension 07/12/2025 Telephone [facility] [address] [place] [address] Andriy Scott MD ER Follow-up 07/05/2025 Orders Only GENERIC EXTERNAL DATA DEPARTMENT Provider, Generic External Data 07/01/2025 3:30 PM EDT Office Visit [facility] MED & PEDS [address] [place] [address] Andriy Scott MD Type 2 diabetes mellitus with stage 3a chronic kidney disease, without long-term current use of insulin (CMS/HCC); Primary hypertension 07/01/2025 Refill [facility] PEDS [address] [place] [address] Andriy Scott MD Primary hypertension 07/01/2025 Travel 06/12/2025 Refill [facility] [address] [place] [address] Andriy Scott MD Primary hypertension 06/11/2025 Refill [facility] MED & PEDS [address] [place] [address] Andriy Scott MD Osteopenia of lumbar spine; Mixed hyperlipidemia 06/10/2025 Refill [facility] MED & PEDS [address] [place] [address] Andriy Scott MD Type 2 diabetes mellitus with stage 3a chronic kidney disease, without long-term current use of insulin (CMS/HCC) 06/08/2025 Orders Only [facility] [address] [place] [address] Andriy Scott MD 05/20/2025 Telephone [facility] MED & PEDS [address] [place] [address] Andriy Scott MD 05/18/2025 9:40 AM EDT Office Visit [facility] OPTOMETRY [address] [place] [address] Maryjo العراقي, OD Type 2 diabetes mellitus with stage 3a chronic kidney disease, without long-term current use of insulin ([facility]) (Primary Dx) 05/18/2025 Travel 05/12/2025 Refill [facility] [address] [place] [address] Andriy Scott MD 05/06/2025 Orders Only [facility] [address] [place] [address] Andriy Scott MD Numbness of left foot (Primary Dx) 05/06/2025 Telephone [facility] MED & PEDS [address] [place] [address] Andriy Scott MD Referral 04/29/2025 Telephone [facility] MED & PEDS [address] [place] [address] Andriy Scott MD Results; Medication Question 04/28/2025 10:15 AM EDT Telemedicine [facility] MED & PEDS [address] [place] [address] Andriy Scott MD Essential hypertension (Primary Dx); Chronic idiopathic constipation; Anemia in stage 3b chronic kidney disease ([facility]/HCC) 04/28/2025 Travel from Last 3 Months Immunizations Immunization Administration [...] Mass Index 32.51 07/20/2025 2:30 PM EDT Plan of Treatment Upcoming Encounters Date Type Department Care Team (Late st Contact Info) Description 07/30/2025 9:30 AM EDT Telemedicine [facility] MED [facility] PEDS [address], [place] [phone] Andriy Scott MD [address] [place] [address] 10/12/2025 10:45 AM EST Office Visit [facility] [address] [place] [address] Andriy Scott MD [address] [place] [address] Health Maintenance Due Date Last Done Comments [...] 12/29/2024, 09/14/2024, Additional history exists Tobacco Screening 07/20/2026 07/20/2025 Dental X-Ray: Full Mouth 08/09/2026 08/08/2023, 02/24 [...] Pressure 152/70(2024 2:45 PM EDT) No Mi Alcaraz, Stoney Reduce [...] disease, without long-term current use of insulin ([facility]) ECG 12-LEAD Routine 07/16/2025 1:44 PM EDT PROTEIN CREATININE RATIO, URINE Routine 07/05/2025 2:10 PM EDT ALBUMIN, RANDOM URINE W/CREATININE Routine 07/05/2025 2:10 PM EDT PTH, INTACT WITHOUT CALCIUM Routine 07/05/2025 2:03 PM EDT CBC WITH AUTO DIFFERENTIAL Routine 07/05/2025 2:03 PM EDT CALCIUM Routine 07/05/2025 2:03 PM EDT CREATININE, SERUM Routine 07/05/2025 2:0 3 PM EDT UREA NITROGEN (BUN) Routine 07/05/2025 2 :03 PM EDT ELECTROLYTE PANEL Routine 07/05/2025 2:0 3 PM EDT POCT GLYCATED HEMOGLOBIN, TOTAL Routine 07/01/2025 3:37 PM EDT Type 2 diabetes mellitus with stage 3a chronic kidney disease, without long-term current use of insulin (CMS/HCC) POCT GLUCOSE Routine 07/01/2025 3:36 PM EDT Type 2 diabetes mellitus with stage 3a chronic kidney disease, without long-term current use of insulin (CMS/HCC) VITAMIN B12/FOLATE, SERUM PANEL Routine 04/28/2025 11:01 AM EDT Type 2 diabetes mellitus with stage 3a chronic kidney disease, without long-term current use of insulin (CMS/HCC) IRON AND TOTAL IRON BINDING CAPACITY Routine [...] Maintenance Results * POCT glucose manually resulted (07/20/2025 2:39 PM EDT) Only the most recent of2 resultswithin the time period is included. Glucose Blood, POC 119 60 - 200 mg/dL QC Media Lot # Comment:[id number] Lot# Expiration Date Comment:11/13/2025 Blood Capillary blood specimen / Unknown 07/20/2025 2:39 PM EDT [facility] POINT OF CARE TEST ENTER/ EDIT ORDERABLES Final Result * ECG 12 lead (07/16/2025 1:44 PM EDT) Historical Provider ECG ORDERABLES Final Res ult * (ABNORMAL) Protein Creatinine Ratio, Urine (07/05/2025 2:10 PM EDT) Protein, Total, Random Urine 13(H) <12 mg/dL [facility] Protein/Creatin ine Ratio, Ur 0.09 <0.2 [facility] Comment:The spot urine prote in:creatinine ratio may increase to 0.3during normal . 07/05/2025 2:10 PM EDT 07/05/2025 5:27 PM EDT Generic External Data Provider LAB URINE ORDERAB LES Final Result [facility] [address] [place] [phone] * Albumin, Random Urine W/Creatinine (07/05/2025 2:10 PM EDT) Creatinine, Urine 145.70 mg/dL [facility] Microalbumin Urine 28.0 mg/L [facility] Microalbum Creatinine Ratio Ur 19.2 <30 ug/mg cr [facility] Comment:Albumin/Creatinine R atio Reference Ranges: Normal: < 30 ug/mg creatinine Microalbuminuria: 30 - 300 ug/mg creatinineClinical Albuminuria: > 300 ug/mg creatinine 07/05/2025 2:10 PM EDT 07/05/2025 5:27 PM EDT Generic External Data Provider LAB URINE ORDERAB LES Final Result Performing Organization Address City/[facility]/ZIP Co de Phone Number [facility] [address] [place] [phone] * Creatinine, Serum (07/05/2025 2:03 PM EDT) Creatinine, Serum 0.89 0.5 - 1.4 mg/dL [facility] Estimated Glomerular Filt Rate >60 [facility] Comment:Chronic Kidney Disea se: Estimated GFR < 60 mL/min/1.39p8Rarsoe Kidney Disease: Estimated GFR < 15 mL/min/1.73m2 07/05/2025 2:03 PM EDT 07/05/2025 5:28 PM EDT Generic External Data Provider LAB BLOOD ORDERAB LES Final Result Performing Organization Address City/[facility]/ZIP Co de Phone Number [facility] [address] [place] [phone] * (ABNORMAL) CBC auto differential (07/05/2025 2:03 PM EDT) Only the most recent of2 resultswithin the time period is included. White Blood Count 6.7 4.8 - 10.8 X10*3/uL [facility] Red Blood Count 3.99(L) 4.20 - 5.50 X10*6/uL [facility] Hemoglobin 11.1(L) 12.0 - 16.0 g/dl [facility] Hematocrit 34.7(L) 37.0 - 47.0 % [facility] Mean Corpuscular Volume 87.0 80.0 - 98.0 fL [facility] Mean Corpuscular Hemoglobin 27.8 27.0 - 33.0 pg [facility] Mean Corpuscular HGB Conc 32.0 31.0 - 35.0 g/dl [facility] Red Cell Distribution Width 14.0 11.0 - 16.0 % [facility] Platelet Count 302 160 - 400 X10*3/uL [facility] Mean Platelet Volume 9.9 9.4 - 12.3 fL [facility] Neutrophils Percent Auto 56.7 45 - 73 % [facility] Imm Gran Pct Auto 0.3 0.0 - 0.4 % [facility] Lymphocytes Percent Auto 30.1 20 - 40 % [facility] Monocytes Percent Auto 6.7 2 - 11 % [facility] Eosinophils Percent Auto 5.8(H) 0 - 4 % [facility] Basophils Percent Auto 0.4 0 - 2 % [facility] NRBC Pct Auto 0.0 0.0 - 0.2 /100WBC [facility] Neutrophils Absolute Auto 3.8 2.0 - 8.3 x10*3/uL [facility] Imm Gran Abs Auto 0.02 0.00 - 0.03 X10*3/uL [facility] Lymphocytes Absolute Auto 2.0 1.2 - 4.9 X10*3/uL [facility] Monocytes Absolute Auto 0.5 0.1 - 1.2 X10*3/uL [facility] Eosinophils Absolute Auto 0.4 0.0 - 0.4 X10*3/uL [facility] Basophils Absolute Auto 0.0 0.0 - 0.2 X10*3/uL [facility] NRBC Abs Auto 0.000 0.0 - 0.012 X10*3/uL [facility] 07/05/2025 2:03 PM EDT 07/05/2025 5:28 PM EDT us Generic External Data Provider LAB BLOOD ORDERAB LES Final Result Performing Organization Address [facility] Co de Phone Number [facility] [address] [place] [phone] * (ABNORMAL) BUN (Blood Urea Nitrogen) (07/05/2025 2:03 PM EDT) Urea Nitrogen (BUN) 22(H) 9 - 16 mg/dL [facility] 07/05/2025 2:03 PM EDT 07/05/2025 5:28 PM EDT Generic External Data Provider LAB BLOOD ORDERAB LES Final Result Performing Organization Address [facility] de Phone Number [facility] [address] [place] [phone] * (ABNORMAL) PTH, Intact Without Calcium (07/05/2025 2:03 PM EDT) Parathyroid Hormone, Intact 83.8(H) 8.7 - 77.1 pg/mL [facility] 07/05/2025 2:03 PM EDT 07/05/2025 5:28 PM EDT Generic External Data Provider LAB BLOOD ORDERAB LES Final Result Performing Organization Address [facility] de Phone Number [facility] [address] [place] [phone] * Calcium (07/05/2025 2:03 PM EDT) Calcium 9.7 8.4 - 10.2 mg/dL [facility] 07/05/2025 2:03 PM EDT 07/05/2025 5:28 PM EDT Generic External Data Provider LAB BLOOD ORDERAB LES Final Result Performing Organization Address [facility] Co de Phone Number [facility] [address] [place] [phone] * (ABNORMAL) Electrolyte Panel (07/05/2025 2:03 PM EDT) Sodium 145 135 - 145 mmol/L [facility] Potassium 4.8 3.3 - 5.1 mmol/L [facility] Chloride 108 96 - 108 mmol/L [facility] Carbon Dioxide 32(H) 22 - 29 mmol/L [facility] Anion Gap 10(L) 12 - 20 [facility] 07/05/2025 2:03 PM EDT 07/05/2025 5:28 PM EDT Generic External Data Provider LAB BLOOD ORDERAB LES Final Result [facility] [address] [place] [phone] * POCT HGB A1C (07/01/2025 3:37 PM EDT) Pathologist [facility] Hemoglobin A1C 5.7 4.0 - 5.7 % QC Media Lot # [id number] Lot# Expiration Date Blood 07/01/2025 3:37 PM EDT Andriy Hartman MD POINT OF CARE TEST ENTER/EDIT ORDERABLES Final Result * (ABNORMAL) Vitamin B12 (Cobalamin) and Folate Panel, Serum (04/28/2025 11:01 AM EDT) Vitamin B12 197(L) 200 - 900 pg/mL [facility] Comment:NORMAL 200-900 PG/ML INDETERMINATE 160-199 PG/ML DEFICIENT < 160 PG/ML Folate 10.6 > or = 4.0 ng/mL [facility] Comment:Reference Values:> o r = [...] ORDERABL ES Final Result Performing Organization Address [facility]/ZIP Co de Phone Number [facility] [address] [place] [phone] * Iron And Total Iron Binding Capacity (04/28/2025 11:01 AM EDT) Iron 61 30 - 160 mcg/dL [facility] Total Iron Binding Capacity 237 228 - 428 mcg/dL [facility] Percent Iron Saturation 26 15 - 50 % [facility] Unsaturated Iron Binding 176 ug/dL [facility] Blood Venous blood specimen / Unknown 04/28/2025 11:01 AM EDT 04/28/2025 2:15 PM EDT Andriy Hartman MD LAB BLOOD ORDERABL ES Final Result Performing Organization Address [facility] Co de Phone Number [facility] [address] [place] [phone] * Lipid Panel, Standard (01/10/2024 8:24 AM EST) Triglycerides 76 <150 mg/dL [facility] Comment:Desirable Triglyceri de: less than 150 mg/dLBorderline High Triglyceride 150-199 mg/dLHigh Triglyceride: 200-499 mg/dLVery High Triglyceride: greater than or equal to 5OO mg/dL Cholesterol 125 <200 mg/dL [facility] Comment:Desirable Cholestero l: less than 200 mg/dLBorderline High Cholesterol: 200-239 mg/dLHigh Cholesterol: greater than 239 mg/dL LDL Cholesterol Calculated 63 <100 mg/dL [facility] Comment:Desirable LDL: less than 100 mg/dLNear Optimal/Above Optimal LDL: 110- 129 mg/dLBorderline High LDL: 130-159 mg/dLHigh LDL: 160-189 mg/dLVery High LDL: greater than or equal to 190 mg/dL HDL Cholesterol 47 >40 mg/dL [facility] Comment:Desirable HDL: great er than 40 mg/dL Note: This HDL assay may give artificially low results in patients with liver disease. Blood Venous blood specimen / Unknown 01/10/2024 8:24 AM EST 01/10/2024 12:30 PM EST us Andriy Hartman MD LAB BLOOD ORDERABL ES Final Result [facility] [address] [place] [address] [phone] from Last 3 Months or Most Recently Relevant to Health Maintenance Insurance [facility] [employer] (HMO D-SNP) [employer] [id number] [facility] Care Teams Tip Stitcher Relationship Specialty Start Date End Date WinklerAndriy Hebert MD [address] [place] [phone] PCP - General Internal Medicine 04/05/20
--- OUTSIDE RECORDS SUMMARY | 2025-07-20 16:23 | XMS_ITS | Encounter Summary ---
Author Organization [employer] Address [address] [facility] [address] [place] [address] Care Team Providers Care Cook Syrup Maker Name Role Phone Andriy Scott MD Primary Care Prov ider Reason for Visit * Reason Onset Date Comments Call Back Request 02/15/2025 Encounter Details Date Type Department Care Team ([facility] Contact Info) Description 02/15/2025 Telephone [facility] MEDICINE [address] [place] [address] Andriy Scott MD [address] [place] [address] Call Back Request Social History Tobacco Use Types Packs/Day Years [...] encounter Miscellaneous Notes * Telephone Encounter - Perez Tucker - 02/15/2025 1:44 PM EDT Tc from pt requesting a call back pt states that she has a Tele Visit Appt with Peterson today at1 pm. Pt states did not receive any call not even one to confirm the Appt. Contact pt at [phone] documented in this encounter Plan of Treatment Upcoming Encounters Date Type Department Care Team (Late st Contact Info) Description 07/30/2025 9:30 AM EDT Telemedicine [facility] MED & PEDS [address] [place] [address] Andriy Scott MD [address] [place] [address] 10/12/2025 10:45 AM EST Office Visit [facility] MED & PEDS [address] [place] [address] Andriy Scott MD [address] [place] [address] documented as of this encounter Goals Goal Patient Goal Type Associated Problems Recent Progress Patient-Stated? Author Blood Pressure < 140/90 Blood Pressure 152/70(2024 2:45 PM EDT) No Mi Alcaraz PharmD Reduce adverse events General No change(2023 1:55 PM EST) Yes Alcaraz, Mi, PharmD Note: 01/20/24: Patient complaining of leg [...] documented as of this encounter Care Teams Cook Syrup Maker Relationship Specialty Start Date End Date Andriy Scott MD [address] [place] [phone] PCP - General Internal Medicine 04/05/20 documented as of this encounter
--- OUTSIDE RECORDS SUMMARY | 2025-07-20 16:23 | XMS_ITS | Encounter Summary ---
Author Organization [employer] Address [address] [facility] 7t [place] [address] Care Team Providers Care Fly Tier Name Role Phone Andriy Scott MD Primary Care Prov ider Reason for Visit * Reason Comments Med Refill Encounter Details Date Type Department Care Team ([facility] Contact Info) Description 05/17/2024 Refill [facility] CHC MED & PEDS [address] [place] [address] Andriy Scott MD [address] [place] [address] Type 2 diabetes mellitus with stage 3a chronic kidney disease, without long-term current use of insulin ([facility]) Social History Tobacco Use Types Packs/Day [...] Info) Description 07/30/2025 9:30 AM EDT Telemedicine [facility] MED & PEDS [address] [place] [address] Andriy Scott MD [address] [place] [address] 10/12/2025 10:45 AM EST Office Visit [facility] MED & PEDS [address] [place] [address] Andriy Scott MD [address] [place] [address] documented as of this encounter Goals Goal [...] disease, without long-term current use of insulin ([facility]) documented in this encounter Additional Health Concerns Assessment Noted Time PHQ-9 Depression Total Score: 0 02/22/20 23 1:22 PM EDT documented as of this encounter Care Teams Fly Tier Relationship Specialty Start Date End Date Andriy Scott MD [address] [place] [address] PCP - General Internal Medicine 04/05/20 documented as of this encounter
--- OUTSIDE RECORDS SUMMARY | 2025-07-20 16:23 | XMS_ITS | Encounter Summary ---
Author Organization [employer] Address 75 [facility] 7t [place] [address] Care Team Providers Care Steam Press Operator Name Role Phone Andriy Scott MD Primary Care Prov ider Encounter Details Date Type Department Care Team ([facility] Contact Info) Description 05/20/2025 Telephone [facility] CHC MED & PEDS [address] [place], [place] [phone] Andriy Scott MD [address] [place] [address] Social History Tobacco Use Types Packs/Day Years [...] past 12 months, has t he electric, [employer], oil or water [employer] threatened to shut off services in your [...] Description 07/30/2025 9:30 AM EDT Telemedicine [facility] MED & PEDS [address] [place], [place] [phone] Andriy Scott MD [address] [place] [address] 10/12/2025 10:45 AM EST Office Visit [facility] MED & PEDS [address] [place] [address] Andriy Scott MD [address] [place] [address] documented as of this encounter Goals Goal [...] documented as of this encounter Care Teams Steam Press Operator Relationship Specialty Start Date End Date WinklerAndriy Gonzalez MD [address] [place] [id number] PCP - General Internal Medicine 04/05/20 documented as of this encounter
--- OUTSIDE RECORDS SUMMARY | 2025-07-20 16:23 | XMS_ITS | Encounter Summary ---
Author Organization [employer] Address 75 [facility] 7t [place] [address] Care Team Providers Care Accident Examiner Name Role Phone Andriy Scott MD Primary Care Prov ider Encounter Details Date Type Department Care Team (Latest Contact Info) Description 06/15/2019 Abstract [facility] CONVERSIONS Dental, Provider, DDS Social History Tobacco [...] Upcoming Encounters Date Type Department Care Team ([facility] st Contact Info) Description 07/30/2025 9:30 AM EDT Telemedicine [facility] MED & PEDS [address] [place] [address] Andriy Scott MD [address] [place] [address] 10/12/2025 10:45 AM EST Office Visit [facility] MED & PEDS [address] [place] [address] Andriy Scott MD [address] [place] [address] documented as of this encounter Visit Diagnoses Not on filedocumented in this encounter Care Teams Accident Examiner Relationship Specialty Start Date End Date WinklerAndriy Gonzalez MD [address] [place] [address] PCP - General Internal Medicine 04/05/20 documented as of this encounter
--- OUTSIDE RECORDS SUMMARY | 2025-07-20 16:23 | XMS_ITS | Continuity of Care Document ---
Author Name [facility], Medical Address [address] [place] [address] Organization Unknown Address [address] [place] [address] Medications No known medications Problems No known problems
--- OUTSIDE RECORDS SUMMARY | 2025-07-20 16:23 | XMS_ITS | Encounter Summary ---
Author Organization [employer] Address 75 [facility] 7t [place] [address] Care Team Providers Care Jewellery Designer Name Role Phone Andriy Scott MD Primary Care Prov ider Encounter Details Date Type Department Care Team ([facility] st Contact Info) Description 03/05/2024 Orders Only [facility] CHC MED & PEDS [address] [place], [place] [phone] Andriy Scott MD [address] [place] [address] Type 2 diabetes mellitus with stage 3a chronic kidney disease, without long-term current use of insulin ([facility]) Social History Tobacco Use Types [...] 07/30/2025 9:30 AM EDT Telemedicine [facility] MED & PEDS [address] [place] [address] Andriy Scott MD [address] [place] [address] 10/12/2025 10:45 AM EST Office Visit [facility] MED & PEDS [address] [place] [address] Andriy Scott MD [address] [place] [address] documented as of this encounter Goals Goal [...] disease, without long-term current use of insulin ([facility]) documented in this encounter Additional Health Concerns Assessment Noted Time PHQ-9 Depression Total Score: 0 02/22/20 23 1:22 PM EDT documented as of this encounter Care Teams Jewellery Designer Relationship Specialty Start Date End Date Andriy Scott MD [address] [place] [address] PCP - General Internal Medicine 04/05/20 documented as of this encounter
--- OUTSIDE RECORDS SUMMARY | 2025-07-20 16:23 | XMS_ITS | Encounter Summary ---
Author Organization [employer] Address 75 [facility] 7t [place] [address] Care Team Providers Care Laborer Wood Preserving Plant Name Role Phone Andriy Scott MD Primary Care Prov ider Encounter Details Date Type Department Care Team ([facility] Contact Info) Description 12/23/2024 Orders Only [facility] [address] [place], [place] [phone] ProviderKaren MD Social History Tobacco Use Types [...] Info) Description 07/30/2025 9:30 AM EDT Telemedicine [facility] MED & PEDS [address] [place] [address] Andriy Scott MD [address] [place] [address] 10/12/2025 10:45 AM EST Office Visit [facility] MED & PEDS [address] [place] [address] Andriy Scott MD [address] [place] [address] documented as of this encounter Goals Goal [...] documented as of this encounter Care Teams Laborer Wood Preserving Plant Relationship Specialty Start Date End Date Andriy Scott MD [address] [place] [address] PCP - General Internal Medicine 04/05/20 documented as of this encounter
--- OUTSIDE RECORDS SUMMARY | 2025-07-20 16:23 | XMS_ITS | Encounter Summary ---
Author Organization [employer] Address 75 [facility] 7t [place] [address] Care Team Providers Care Medicare Specialist Name Role Phone Andriy Scott MD Primary Care Prov ider Encounter Details Date Type Department Care Team ([facility] Contact Info) Description 06/08/2025 Orders Only [facility] CHC MED & PEDS [address] [place], [place] [phone] Andriy Scott MD [address] [place] [address] Social History Tobacco Use Types Packs/Day Years [...] the past 12 months, has t he [employer], gas, oil or water company threatened to [...] Description 07/30/2025 9:30 AM EDT Telemedicine [facility] MED & PEDS [address] [place], [place] [phone] Andriy Scott MD [address] [place] [address] 10/12/2025 10:45 AM EST Office Visit [facility] MED & PEDS [address] [place] [address] Andriy Scott MD [address] [place] [address] documented as of this encounter Goals Goal [...] documented as of this encounter Care Teams Medicare Specialist Relationship Specialty Start Date End Date Andriy Scott MD [address] [place] [address] PCP - General Internal Medicine 04/05/20 documented as of this encounter
--- OUTSIDE RECORDS SUMMARY | 2025-07-20 16:24 | XMS_ITS | Encounter Summary ---
Author Organization [employer] Address 75 [facility] 7t [place] [address] Care Team Providers Care Territory Sales Consultant Name Role Phone Andriy Scott MD Primary Care Prov ider Reason for Visit * Reason Onset Date Comments Increase of medication 07/16/2025 Encounter Details Date Type Department Care Team ([facility] st Contact Info) Description 07/16/2025 Telephone [facility] MEDICINE [address] [place] [address] Andriy Scott MD [address] [place] [address] Increase of medication Social History Tobacco Use Types Packs/Day Years [...] encounter Miscellaneous Notes * Telephone Encounter - Wing Kayla RN - 07/16/2025 11:52 AM EDT Just as a heads up. Spoke to Yajaira, pt was in the ED yesterday for hypertension. The manager exchange Dr. Anderson increased the spironolactone to 50 mg and wants a BMP done when he is seen on the . Lab order was faxed to [phone] and [phone]. Dr. Anderson would also update the pt's medication list. Stated would message provider to give her a heads up. Yajaira verbalized understanding and agreement with plan. * Telephone Encounter - Michelle Tineo - 07/16/2025 10:05 AM EDT TC from Yajaira Angulo with [facility]: Pt was seen today as an emergency. Litigation Coordinator increased spironolactone (Aldactone) from 25 mg to 50 mg daily. Contact Yajaira for today at [phone] Any other day [phone] documented in this encounter Plan of Treatment Upcoming Encounters Date Type Department Care Team (Late st Contact Info) Description 07/30/2025 9:30 AM EDT Telemedicine [facility] MED & PEDS [address] [place] [address] Andriy Scott MD [address] [place] [address] 10/12/2025 10:45 AM EST Office Visit [facility] CHC MED & PEDS [address] [place] [address] nAdriy Scott MD [address] [place] [address] documented as of this encounter Goals Goal [...] documented as of this encounter Care Teams Territory Sales Consultant Relationship Specialty Start Date End Date Andriy Scott MD [address] [place] [address] PCP - General Internal Medicine 04/05/20 documented as of this encounter
--- OUTSIDE RECORDS SUMMARY | 2025-07-20 16:24 | XMS_ITS | Encounter Summary ---
Author Organization [employer] Address [address] [facility] 7 [place] [address] Care Team Providers Care Apron Man Name Role Phone Andriy Scott MD Primary Care Prov ider Encounter Details Date Type Department Care Team (Latest Contact Info) Description 06/27/2022 Abstract [facility] CONVERSIONS Dental, Provider, DDS Social History Tobacco [...] Upcoming Encounters Date Type Department Care Team ([facility] Contact Info) Description 07/30/2025 9:30 AM EDT Telemedicine [facility] MED & PEDS [address] [place] [address] Andriy Scott MD [address] [place] [address] 10/12/2025 10:45 AM EST Office Visit [facility] MED & PEDS [address] [place] [address] Andriy Scott MD [address] [place] [address] documented as of this encounter Visit Diagnoses Not on filedocumented in this encounter Care Teams Apron Man Relationship Specialty Start Date End Date WinklerAndriy Gonzalez MD [address] [place] [address] PCP - General Internal Medicine 04/05/20 documented as of this encounter
--- OUTSIDE RECORDS SUMMARY | 2025-07-20 16:24 | XMS_ITS | Clinical Summary ---
Author Organization [facility] Address [address] [place] [phone] Phone Care Team Providers Care Paymaster Of Purses Name Role Phone Andriy Winkler Primary Care [...] (CARDURA) 4 MG tablet TOME ADIN TABLETA TODOS LOS D 1 Active Repatha [employer] 140 [...] 06/30/2024 Anemia in chronic kidney disease 06/16/2024 Assessment & Plan (07/01/2024 9:52 PM EDT): [...] <10 Chronic kidney disease, stage 2 (mild) Assessment & Plan (07/01/2024 9:50 PM EDT): [...] Coronary atherosclerosis 05/18/2015 Overview (02/06/2021): Followed by [facility] Cardiology Dr.Robert Ward Abdominal pain 05/17/2015 Overview [...] after the 08/25/24 Regulatory Import Hypertension 05/13/2015 Assessment & Plan (07/01/2024 9:49 PM EDT): [...] Medical records from - Adult Primary Care Encounters Date Type Department Care Team Description 07/05/2025 1:00 PM EDT Office Visit [facility] [address] [facility] [address] [place] [address] Tyra Escobedo ARNP Chronic kidney disease, stage 2 (mild) (Primary Dx); Hypertension; Anemia in chronic kidney disease from Last 3 Months Immunizations Immunization Administration Dates Next Due Shingrix 07/16/2022,04/19/2022 Tdap [...] Sign Reading Time Taken Comments Blood Pressure 124/68 07/05/2025 1:26 PM EDT Pulse 59 07/05/2025 1:11 PM EDT Temperature - - Respiratory Rate - - Oxygen Saturation 97% 06/30/2024 11:04 AM EDT Inhaled Oxygen Concentration - - Weight 71.2 kg (157 lb) 07/05/2025 1:11 PM EDT Height 139.7 cm (4' 7 ) 03/13/2022 3:28 PM EDT Body Mass Index 36.49 03/13/2022 3:28 PM EDT Plan of Treatment Upcoming Encounters Date Type Department Care Team (Late st Contact Info) Description 07/05/2026 1:00 PM EDT Office Visit [facility] [address] [facility] [address] [place] [address] Tyra Escobedo, DEVANG [address] [facility] [address] [place] [phone] Health Maintenance Due Date Last Done Comments Pneumococcal Vaccine: 50+ Years (1 of 2 - PCV) 1964 Diabetes: Ophthalmology Exam 12/25/2020 Diabetes: Pedal Pulse Checked 12/25/2020 Diabetes: Sensory Foot Exam 12/25/2020 Diabetes: Visual Foot Exam 12/25/2020 Influenza Vaccine (#1) 2025 Diabetes: Hemoglobin A1C 10/01/2025 025, 12/29/2024, 03/30/2024, Additional history exists Hepatitis B Vaccine Aged Out No longe r eligible based on patient's age to complete this topic Procedures Procedure Name Priority Date/Time Associated Diagnosis Comments PTH, INTACT (HC) Routine 07/05/2025 5:28 PM EDT CBC AND DIFFERENTIAL Routine 07/05/2025 5:28 PM EDT CALCIUM Routine 07/05/2025 5:28 PM EDT CREATININE, BLOOD Routine 07/05/2025 5:2 8 PM EDT BUN Routine 07/05/2025 5:28 PM EDT ELECTROLYTE PANEL Routine 07/05/2025 5:2 8 PM EDT ALBUMIN, URINE, RANDOM Routine 07/05/2025 5:27 PM EDT PROTEIN / CREATININE RATIO, URINE Routine 07/05/2025 5:27 PM EDT Chronic kidney disease, stage 2 (mild) Hypertension Anemia in chronic kidney disease HEMOGLOBIN A1C Routine 06/19/2023 9:50 AM EDT Chronic kidney disease, stage 2 (mild) Hypertension Type 2 diabetes mellitus with diabetic chronic kidney disease (HCC) from Last 3 Months or Most Recently Relevant to Health Maintenance Results * Creatinine (07/05/2025 5:28 PM EDT) Pathologist [facility] Creatinine Serum 0.89 0.5 - 1.4 mg/dL See order comments eGFR (Calc) >60 See orde r comments Comment: Chronic Kidney Disease: Estimated GFR < 60 mL/min/1.73m2 Severe Kidney Disease: Estimated GFR < 15 mL/min/1.73m2 07/05/2025 5:28 PM EDT 07/05/2025 5:28 PM EDT [facility] Final Result Performing Organization Address [facility] Co de Phone Number [place] See order comments [place] [address] * (ABNORMAL) PTH, Intact (07/05/2025 5:28 PM EDT) [facility] Parathyroid Hormone, Intact 83.8(H) 8.7 - 77.1 pg/mL See order comments 07/05/2025 5:28 PM EDT 07/05/2025 5:28 PM EDT [facility] LAB HISTORICAL-CONVERSIONS- UNSOLICITED RESULTS Final Result Performing Organization Address [facility] de Phone Number [place] See order comments [place] [address] * (ABNORMAL) CBC and Differential (07/05/2025 5:28 PM EDT) Pathologist [facility] WBC 6.7 4.8 - 10.8 X10*3/uL See order comments RBC 3.99(L) 4.20 - 5.50 X10*6/uL See order comments Hgb 11.1(L) 12.0 - 16.0 g/dl See order comments Hematocrit 34.7(L) 37.0 - 47.0 % See order comments MCV 87.0 80.0 - 98.0 fL See order comments MCH 27.8 27.0 - 33.0 pg See order comments MCHC 32.0 31.0 - 35.0 g/dl See order comments RDW 14.0 11.0 - 16.0 % See order comments Platelets 302 160 - 400 X10*3/uL See order comments MPV 9.9 9.4 - 12.3 fL See order comments Neutrophils % Auto 56.7 45 - 73 % See order comments Immature Granulocytes 0.3 0.0 - 0.4 % See order comments Lymphocytes Relative 30.1 20 - 40 % See order comments Monocytes 6.7 2 - 11 % See order comments Eosinophils Relative 5.8(H) 0 - 4 % See order comments Basophils Relative 0.4 0 - 2 % See order comments nRBC Count 0.0 0.0 - 0.2 /100WBC See order comments Neutrophils Absolute 3.8 2.0 - 8.3 x10*3/uL See order comments Immature Grans (Absolute) 0.02 0.00 - 0.03 X10*3/uL See order comments Lymphocytes Absolute 2.0 1.2 - 4.9 X10*3/uL See order comments Monocytes Absolute 0.5 0.1 - 1.2 X10*3/uL See order comments Eosinophils Absolute 0.4 0.0 - 0.4 X10*3/uL See order comments Basophils Absolute 0.0 0.0 - 0.2 X10*3/uL See order comments NRBC Absolute 0.000 0.0 - 0.012 X10*3/uL See order comments 07/05/2025 5:28 PM EDT 07/05/2025 5:28 PM EDT Tyra Escobedo [facility] LAB BLOOD ORDERABLES Final Result See order comments [place] [address] * (ABNORMAL) BUN (07/05/2025 5:28 PM EDT) BUN 22(H) 9 - 16 mg/dL See order comments 07/05/2025 5:28 PM EDT 07/05/2025 5:28 PM EDT Tyra [employer] [facility] LAB BLOOD ORDERABLES Final Result See order comments [place] [address] * Calcium (07/05/2025 5:28 PM EDT) Calcium 9.7 8.4 - 10.2 mg/dL See order comments 07/05/2025 5:28 PM EDT 07/05/2025 5:28 PM EDT [facility] LAB BLOOD ORDERABLES Final Result Performing Organization Address [facility] de Phone Number [place] See order comments [place] [address] * (ABNORMAL) Electrolyte panel (07/05/2025 5:28 PM EDT) Sodium 145 135 - 145 mmol/L See order comments Potassium 4.8 3.3 - 5.1 mmol/L See order comments Chloride 108 96 - 108 mmol/L See order comments Bicarbonate (CO2) 32(H) 22 - 29 mmol/L See order comments Anion Gap 10(L) 12 - 20 See order comments 07/05/2025 5:28 PM EDT 07/05/2025 5:28 PM EDT [facility] LAB BLOOD ORDERABLES Final Result Performing Organization Address [facility] Phone Number [place] See order comments [place] [address] * (ABNORMAL) Urine Protein / creatinine ratio (07/05/2025 5:27 PM EDT) Protein Urine Random 13(H) <12 mg/dL See order comments Protein/Creatin ine Ratio, Urine 0.09 <0.2 See order comments Comment: The spot urine protein:creatinine ratio may increase to 0.3 during normal . Urine Urine specimen obtained by clean catch procedure / Unknown 07/05/2025 5:27 PM EDT 07/05/2025 5:27 PM EDT [facility] LAB URINE ORDERABLES Final Result Performing Organization Address [facility] Phone Number [place] See order comments [place] [address] * Albumin, urine, random (07/05/2025 5:27 PM EDT) Creatinine, Urine 145.70 mg/dL Se e order comments Urine Microalbumin 28.0 mg/L See order comments Microalbumin/Crea tinine Ratio 19.2 <30 ug/mg cr See order comments Comment: Albumin/Creatinine Ratio Reference Ranges: Normal: < 30 ug/mg creatinine Microalbuminuria: 30 - 300 ug/mg creatinine Clinical Albuminuria: > 300 ug/mg creatinine 07/05/2025 5:27 PM EDT 07/05/2025 5:27 PM EDT Tyra Gregg [facility] LAB URINE ORDERABLES Final Result [place] See order comments [place] [address] * (ABNORMAL) Hemoglobin A1c (06/19/2023 9:50 AM EDT) Hemoglobin A1C 5.8(H) (4.0-5.6) % [facility] Comment: MONITORING: In known diabetic patients, hemoglobin A1c targets should be discussed with health care provider. DIAGNOSTIC USE: The [place] [employer] (ADA) and the World Health [...] Supplement 1 Testing performed or reported by [facility], a Service of [facility], [address] [place] [id number] Alessandro Lopez MD, Hand Finisher [facility]# [id number] Blood specimen (specimen) Venous blood / Unknown 06/19/2023 9:50 AM EDT 06/19/2023 9:52 AM EDT us Zohaib De La Rosa MD LAB BLOOD ORDERABLES Final Re sult DAVE from Last 3 Months or Most Recently Relevant to Health Maintenance Insurance [address] [place] [address] [facility] ([id number]) [address] [place] [id number] [facility] ([id number]) Care Teams Paymaster Of Purses Relationship Specialty Start Date End Date Andriy Winkler PCP - General Internal Medicine 03/08/21
--- OUTSIDE RECORDS SUMMARY | 2025-07-20 16:24 | XMS_ITS | Encounter Summary ---
Author Organization [employer] Address [address] [place] [address] Care Team Providers Care Head Start Assistant Teacher Name Role Phone Andriy Scott Primary Care Provide r Encounter Details Date Type Department Care Team (Late st Contact Info) Description 07/16/2025 Telephone [facility] - [facility] [address] [facility] [address] [place] [address] Yajaira Jauregui, BERTRAM Social History Tobacco Use Types Packs/Day Years [...] PM EST documented as of this encounter Progress Notes * Yajaira Jauregui RN - 07/16/2025 4:11 PM EDT Please see below for added information if needed. I spoke with daughter and updated med module. James takes Vit B12 1000 mcg qa.m. Vit D3 25 mcg daily. She is unsure if taking Trulicity. * Yajaira Jauregui RN - 07/16/2025 10:07 AM EDT Spoke with daughter Maira regarding Dr. Becker's response and orders at [phone] and made her aware to have patient increase Spironolactone to 50 mg qd (take 25 mg 2 tabs together daily) BMP to be drawn Saturday at PCP office. I will call daughter back at 2 pm when she will have patient's complete current med list with current doses and frequency. I called PCP office and relayed med change by Dr. Becker and obtained fax # for lab at [facility] lab fax # [phone] Faxed BMP order. Received call from Wing at [facility] and relayed Dr. Becker's orders as well. Fax # to nurse's station there is [phone]-faxing BMP orders there as well. * Yajaira Jauregui RN - 07/16/2025 9:39 AM EDT ----- Message from Taty Becker MD sent at 07/16/2025 9:26 AM EDT ----- Regarding: med changes Could you please let the patient's daughter know that I want the spironolactone increased to 50 mg daily. 225 mg tablets can be taken at the same time. I saw her in the emergency room just now. Also I want her to get a basic metabolic profile. She has an appointment on Saturday with Dr. Winkler at the [facility]. She can get the labs done there. And perhaps let Dr. Winkler's office know that she was in the ER and we are increasing the Aldactone to 50. It might be good to run down her medication list again as I know there are lots of changes and confusion. I do not think thereis a point in keeping her in the hospital at this time documented in this encounter Plan of Treatment Upcoming Encounters Date Type Department Care Team (Late st Contact Info) Description 08/09/2025 10:30 AM EDT Office Visit Orthopedic Surgery - [place] [address] [place] [address] [place] [phone] Phan Avalos DPM [address] [place] [address] 10/26/2025 2:40 PM EST Office Visit Gastroenterology - [place] [address] [facility] [address] [place] [phone] Shannon Ceron PA [address] [place] [address] Scheduled Orders Name Type Priority Associated Diagnoses Orde r Schedule Basic metabolic panel Lab Routine Subclavian artery stenosis, left ([facility] V24) Coronary artery disease involving tetlin heart without angina pectoris, unspecified vessel or lesion type Primary hypertension 1 Occurrences starting 07/16/2025 until 07/16/2026 documented as of this encounter Visit Diagnoses Diagnosis Coronary artery disease involving tetlin heart without angina pectoris, unspecified vessel or lesion type- Primary Subclavian artery stenosis, left ([facility] V24) Atherosclerosis of other specified arteries Primary hypertension Unspecified essential hypertension documented in this encounter Discontinued Medications Medication Sig Discontinue Reason Start Date End Da te doxazosin (CARDURA) 4 mg tablet 4 mg. 08/03/2015 07/16/2025 clopidogreL (PLAVIX) 75 mg tablet Take 1 tablet (75 mg total) by mouth 1 (one) time each day. 07/16/2025 documented as of this encounter Historical Medications * This list may reflect changes made after this encounter. doxazosin (CARDURA) 2 mg tablet Take 1 tablet (2 mg total) by mouth 1 (one) time each day. 07/16/2025 added in this encounter Care Teams Head Start Assistant Teacher Relationship Specialty Start Date End Date Andriy Scott [address] [place], [place] PCP - General Internal Medicine 12/15/20 documented as of this encounter
--- OUTSIDE RECORDS SUMMARY | 2025-07-20 16:24 | XMS_ITS | Encounter Summary ---
Author Organization [employer] Address [address] [facility] [address] [place] [address] Care Team Providers Care Refrigeration Unit Repairer Name Role Phone Andriy Scott MD Primary Care Prov ider Encounter Details Date Type Department Care Team ([facility] Contact Info) Description 03/25/2023 Orders Only [facility] MED & PEDS [address] [place] [address] Joann Patrick LPN Social History Tobacco Use [...] Upcoming Encounters Date Type Department Care Team ([facility] Contact Info) Description 07/30/2025 9:30 AM EDT Telemedicine [facility] MED & PEDS [address] [place] [address] Andriy Scott MD [address] [place] [address] 10/12/2025 10:45 AM EST Office Visit [facility] MED & PEDS [address] [place] [address] Andriy Scott MD [address] [place] [address] documented as of this encounter Visit Diagnoses Not on filedocumented in this encounter Additional Health Concerns Assessment Noted Time PHQ-9 Depression Total Score: 0 02/22/20 23 1:22 PM EDT documented as of this encounter Care Teams Refrigeration Unit Repairer Relationship Specialty Start Date End Date Andriy Scott MD [address] [place] [address] PCP - General Internal Medicine 04/05/20 documented as of this encounter
--- OUTSIDE RECORDS SUMMARY | 2025-07-20 16:24 | XMS_ITS | Encounter Summary ---
Author Organization [employer] Address [address] [facility] [address] [place] [address] Care Team Providers Care Toll Bridge Operator Name Role Phone Andriy Scott MD Primary Care Prov ider Encounter Details Date Type Department Care Team (Latest Contact Info) Description 01/03/2021 Abstract [facility] CONVERSIONS Dental, Provider, DDS Social History Tobacco [...] Upcoming Encounters Date Type Department Care Team ([facility] Contact Info) Description 07/30/2025 9:30 AM EDT Telemedicine [facility] MED & PEDS [address] [place] [address] Andriy Scott MD [address] [place] [address] 10/12/2025 10:45 AM EST Office Visit [facility] MED & PEDS [address] [place] [address] Andriy Scott MD [address] [place] [address] documented as of this encounter Visit Diagnoses Not on filedocumented in this encounter Care Teams Toll Bridge Operator Relationship Specialty Start Date End Date WinklerAndriy Gonzalez MD [address] [place] [address] PCP - General Internal Medicine 04/05/20 documented as of this encounter
--- OUTSIDE RECORDS SUMMARY | 2025-07-20 16:24 | XMS_ITS | Encounter Summary ---
Author Organization [employer] Address [address] [facility] [address] [address] Care Team Providers Care Plastic Sheets Supervisor Name Role Phone Andriy Scott MD Primary Care Prov ider Encounter Details Date Type Department Care Team (Late Contact Info) Description 12/07/2022 Orders Only [facility] MED & PEDS [address] [place], [place] [phone] Tyra Anand LPN Social History Tobacco Use [...] Department Care Team (Late Contact Info) Description 07/30/2025 9:30 AM EDT Telemedicine [facility] MED & PEDS [address] [place] [address] Andriy Scott MD [address] [place] [address] 10/12/2025 10:45 AM EST Office Visit [facility] MED & PEDS [address] [place] [address] Andriy Scott MD [address] [place] [address] documented as of this encounter Visit Diagnoses Not on filedocumented in this encounter Care Teams Plastic Sheets Supervisor Relationship Specialty Start Date End Date Andriy Scott MD [address] [place] [address] PCP - General Internal Medicine 04/05/20 documented as of this encounter
--- OUTSIDE RECORDS SUMMARY | 2025-07-20 16:24 | XMS_ITS | Encounter Summary ---
Author Organization [employer] Address [address] [place] [address] Care Team Providers Care Agile Java Developer Name Role Phone Andriy Scott Primary Care Provide r Reason for Visit * Reason Onset Date Comments Medication Problem 07/14/2025 Encounter Details Date Type Department Care Team (Late st Contact Info) Description 07/14/2025 Telephone [facility] Cardiology Associates - [facility] [address] [place] [address] Santi Becker MD [address] [place] [address] Dr [address] [place] [address] Social History Tobacco Use Types Packs/Day Years [...] as of this encounter Progress Notes * Mary Ellen Armstrong MA - 07/14/2025 4:39 PM EDT FYI---Pt called back as she had a missed call on her phone, I explained they had already spoken to her dtr and she confirms that this was true, while on the phone her bp was 219/82 hr 57 she just took her evening Valsartan 80 mg, I advised her to check her bp again in 2hours and instructed her on the proper way to do it, and to not consume caffeine or salt during this time and to hydrate well andif it still remains elevated she should call back and leave a ms for the answering service to contact the PM wagon driver physician and she will be further instructed * Yajaira Jauregui RN - 07/14/2025 4:12 PM EDT Spoke with NELSON again regarding documented task below. Per NELSON continue Valsartan 80 mg BID and d/c order for Valsartan 80 mg qd. I called pharmacy and spoke with pharmacist on duty -Irina and relayed NELSON orders. I called daughter and spoke with her as well and stated per NELSON to continue Valsartan 80 mg BID andshe verbalized understanding. * Lizeth Lorenzo NP - 07/14/2025 3:30 PM EDT Reviewed task from 07/12. It appears that the patient should be taking valsartan 80 mg twice daily as outlined by Karol. I would check with the patient and her family to find out who the patient has most recently seen regarding her valsartan dosing and why a different prescription would be sent in from a doctor in [place] with different directions when she was in touch with our office 2 days ago andconfirmed valsartan 80 mg twice daily dosing. * Yajaira Jauregui RN - 07/14/2025 2:41 PM EDT Please clarify Valsartan dose. Should she continue on 80 mg BID? Per 07/12 task Valsartan 80 mg BID. I called daughter and she confirmed that dose. I returned call to called Pharmacist who reports he also just received a script today for [id number] mg qd from a [place] doctor Dr. Jay Sow phone # [phone] for Valsartan 80 mg qd #14 tabs. Pharmacist questioning which to fill. Called daughter back who spoke with patient . Patient at 3am BP 191/86 (felt weak) At 6am 186/87. She called [facility] and a nurse visited her. Unsure what BP was. Daughter thinks this doctor is from [facility] and ordered Valsartan 80 mg qd script sent to pharmacy. BP 2 hrs after meds today 175/80. Yesterday a.m. 2 hrs after meds 156/82. * Jamison Wallace - 07/14/2025 2:09 PM EDT Ed from [facility] states they received a prescription form Dr. Becker for Valsartan 80 1 tab daily. They also received a prescription from a doctor for Valsartan 80 mg 2 tabs daily for 14 days. Ed would liek to know what patient should be on. documented in this encounter Plan of Treatment Upcoming Encounters Date Type Department Care Team (Late st Contact Info) Description 08/09/2025 10:30 AM EDT Office Visit Orthopedic Surgery - [place] [address] [facility] [address] [place] [phone] Phan Avalos DPM [address] [place] [address] 10/26/2025 2:40 PM EST Office Visit Gastroenterology - [place] [address] [facility] [address] [place] [phone] Shannon Ceron PA [address] [place] [address] documented as of this encounter Visit Diagnoses Not on filedocumented in this encounter Care Teams Agile Java Developer Relationship Specialty Start Date End Date Andriy Scott [address] [place], [place] PCP - General Internal Medicine 12/15/20 documented as of this encounter
--- OUTSIDE RECORDS SUMMARY | 2025-07-20 16:24 | XMS_ITS | Encounter Summary ---
Author Organization [employer] Address [address] [facility] 7t [place] [address] Care Team Providers Care Biological Science Aide Name Role Phone Andriy Scott MD Primary Care Prov ider Reason for Visit * Reason Comments Med Refill Encounter Details Date Type Department Care Team ([facility] Contact Info) Description 02/10/2024 Refill [facility] CH[facility] MED & PEDS [address] [place], [place] [phone] Andriy Scott MD 505 [place] [address] Mixed hyperlipidemia Social History Tobacco Use Types [...] [facility] MED & PEDS [address] [place] [address] Andriy Scott MD [address] [place] [address] 10/12/2025 10:45 AM EST Office Visit [facility] MED & PEDS [address] [place] [address] Andriy Scott MD 505 [place] [address] documented as of this encounter Goals Goal [...] documented as of this encounter Care Teams Biological Science Aide Relationship Specialty Start Date End Date Andriy Scott MD [address] [place] [address] PCP - General Internal Medicine 04/05/20 documented as of this encounter
--- OUTSIDE RECORDS SUMMARY | 2025-07-20 16:24 | XMS_ITS | Encounter Summary ---
Author Organization [employer] Address [address] [facility] 7t [place] [address] Care Team Providers Care Junior Buyer Name Role Phone Andriy Scott MD Primary Care Prov ider Reason for Visit * Reason Onset Date Comments Returning call 04/08/2025 Encounter Details Date Type Department Care Team ([facility] Contact Info) Description 04/08/2025 Telephone [facility] MEDICINE [address] [place] [address] Andriy Scott MD [address] [place] [address] Returning call Social History Tobacco Use Types Packs/Day Years [...] encounter Miscellaneous Notes * Telephone Encounter - Michelle Tineo - 04/08/2025 4:46 PM EDT TC from pt stating that she receive a call from us. According to pt call was made today at 9:15am. Engineering Supervisor does not find call. documented in this encounter Plan of Treatment Upcoming Encounters Date Type Department Care Team (Late st Contact Info) Description 07/30/2025 9:30 AM EDT Telemedicine [facility] MED & PEDS [address] [place] [address] Andriy Scott MD [address] [place] [address] 10/12/2025 10:45 AM EST Office Visit [facility] MED & PEDS [address] [place] [address] Andriy Scott MD [address] [place] [address] documented as of this encounter Goals Goal [...] documented as of this encounter Care Teams Junior Buyer Relationship Specialty Start Date End Date Andriy Scott MD [address] [place] [address] PCP - General Internal Medicine 04/05/20 documented as of this encounter
--- OUTSIDE RECORDS SUMMARY | 2025-07-20 16:24 | XMS_ITS | Encounter Summary ---
Author Organization [employer] Address [address] [facility] 7t [place] [address] Care Team Providers Care Mining Engineer Name Role Phone Andriy Scott MD Primary Care Prov ider Reason for Visit * Reason Onset Date Comments ER Follow-up 07/12/2025 Encounter Details Date Type Department Care Team ([facility] st Contact Info) Description 07/12/2025 Telephone [facility] MEDICINE [address] [place] [address] Andriy Scott MD [address] [place] [address] ER Follow-up Social History Tobacco Use Types Packs/Day Years [...] encounter Miscellaneous Notes * Telephone Encounter - Elizabeth Bradley RN - 07/15/2025 11:17 AM EDT TC to pt to schedule ER follow up and status check. Pt stated would like to follow up with BP. ER follow up scheduled for 07/20/25. Pt verbalized understanding and agreement with plan. * Telephone Encounter - Vahid Walker - 07/15/2025 10:02 AM EDT Tc from pt calling in regarding message prior stating she has not received a call. Please contact pt at [phone]. (Mohawk Speaker) * Telephone Encounter - Michelle Tineo - 07/12/2025 8:55 AM EDT Patient calling to report ED visit on : Date: 07/11 Hospital: [facility] Seen for: High blood pressure Symptomatic No *if yes message should go to Triage Patient advised will forward to team nurse for follow up documented in this encounter Plan of Treatment Upcoming Encounters Date Type Department Care Team ([facility] st Contact Info) Description 07/30/2025 9:30 AM EDT Telemedicine [facility] CH[facility] MED & PEDS [address] [place] [address] Andriy Scott MD [address] [place] [address] 10/12/2025 10:45 AM EST Office Visit [facility] MED & PEDS 505 [place] [address] Andriy Scott MD [address] [place] [address] documented as of this encounter Goals Goal [...] documented as of this encounter Care Teams Mining Engineer Relationship Specialty Start Date End Date Andriy Scott MD [address] [place] [address] PCP - General Internal Medicine 04/05/20 documented as of this encounter
--- OUTSIDE RECORDS SUMMARY | 2025-07-20 16:24 | XMS_ITS | Encounter Summary ---
Author Organization [employer] Address [address] [facility] [address] [place] [address] Care Team Providers Care Dockworker Name Role Phone Andriy Scott MD Primary Care Prov ider Encounter Details Date Type Department Care Team (Late Contact Info) Description 12/18/2022 Orders Only [facility] MEDICINE [address] [place], [place] [phone] Andriy Scott MD [address] [place] [address] Non-seasonal allergic rhinitis due to fungal spores [...] Info) Description 07/30/2025 9:30 AM EDT Telemedicine [facility] MED & PEDS [address] [place], [place] [phone] Andriy Scott MD [address] [place] [address] 10/12/2025 10:45 AM EST Office Visit [facility] MED & PEDS [address] [place] [address] Andriy Scott MD [address] [place] [address] documented as of this encounter Visit Diagnoses Diagnosis Non-seasonal allergic rhinitis due to fungal spores- Primary documented in this encounter Care Teams Dockworker Relationship Specialty Start Date End Date Andriy Scott MD [address] [place] [address] PCP - General Internal Medicine 04/05/20 documented as of this encounter
--- OUTSIDE RECORDS SUMMARY | 2025-07-20 16:24 | XMS_ITS | Clinical Summary ---
Author Organization [facility] Address [address] [place] [address] Care Team Providers Care Green Building Engineer Name Role Phone Zita Connell PA-C Primary Care Provider [phone] Source Comments PLEASE NOTE, if this patient [...] Coronary atherosclerosis 05/18/2015 Overview (05/18/2015): Followed by [facility] Cardiology Dr.Robert Ward Coronary artery disease invo [place]ving [place] coronary artery without angina pectoris 05/18/2015 Abdominal [...] - Adult Primary Care Asthma, mild intermittent ([facility]) 05/13/2015 Overview (05/17/2015): Extrinsic asthma unspecified- [...] file Insurance [employer] MEDICARE COM[place]TE [place] Care Teams Green Building Engineer Relationship Specialty Start Date End Date Zita Connell PA-C [address] [place] [address] PCP - General 01/20/19
--- OUTSIDE RECORDS SUMMARY | 2025-07-20 16:24 | XMS_ITS | Encounter Summary ---
Author Organization [employer] Address [address] [facility] 7t [place] [address] Care Team Providers Care Industrial Welder Name Role Phone Andriy Scott MD Primary Care Prov ider Encounter Details Date Type Department Care Team (Late st Contact Info) Description 11/07/2023 Abstract [facility] ADULT DENTAL [address] [place] [address] Elder Akers DDS [address] [place] [address] Social History Tobacco Use Types Packs/Day Years [...] 07/30/2025 9:30 AM EDT Telemedicine [facility] MED & PEDS [address] [place] [address] Andriy Scott MD [address] [place] [address] 10/12/2025 10:45 AM EST Office Visit [facility] MED & PEDS [address] [place] [address] Andriy Scott MD [address] [place] [address] documented as of this encounter Visit Diagnoses Not on filedocumented in this encounter Additional Health Concerns Assessment Noted Time PHQ-9 Depression Total Score: 0 02/22/20 23 1:22 PM EDT documented as of this encounter Care Teams Industrial Welder Relationship Specialty Start Date End Date Andriy Scott MD [address] [place] [address] PCP - General Internal Medicine 04/05/20 documented as of this encounter
--- OUTSIDE RECORDS SUMMARY | 2025-07-20 16:24 | XMS_ITS | Encounter Summary ---
Author Organization [email or web address] Address [address] [facility] [address] [address] Care Team Providers Care Head Neck Surgeon Name Role Phone Andriy Scott MD Primary Care Prov ider Encounter Details Date Type Department Care Team ([facility] Contact Info) Description 04/09/2023 Orders Only [facility] MED & PEDS [address] [place] [address] Joann Patrick LPN Social History Tobacco Use [...] Description 07/30/2025 9:30 AM EDT Telemedicine [facility] MED & PEDS [address] [place] [address] Andriy Scott MD [address] [place] [address] 10/12/2025 10:45 AM EST Office Visit [facility] MED & PEDS [address] [place] [address] Andriy Scott MD [address] [place] [address] documented as of this encounter Visit Diagnoses Not on filedocumented in this encounter Additional Health Concerns Assessment Noted Time PHQ-9 Depression Total Score: 0 02/22/20 23 1:22 PM EDT documented as of this encounter Care Teams Head Neck Surgeon Relationship Specialty Start Date End Date Andriy Scott MD [address] [place] [address] PCP - General Internal Medicine 04/05/20 documented as of this encounter
--- OUTSIDE RECORDS SUMMARY | 2025-07-20 16:24 | XMS_ITS | Encounter Summary ---
Author Organization [employer] Address [address] [facility] 7t [place] [address] Care Team Providers Care Sander Machine Name Role Phone Andriy Scott MD Primary Care Prov ider Encounter Details Date Type Department Care Team ([facility] Contact Info) Description 07/19/2025 Orders Only [facility] [address] [place], [place] [phone] ProviderKaren MD Social History Tobacco Use Types [...] 07/30/2025 9:30 AM EDT Telemedicine [facility] MED & PEDS [address] [place] [address] Andriy Scott MD [address] [place] [address] 10/12/2025 10:45 AM EST Office Visit [facility] MED & PEDS [address] [place] [address] Andriy Scott MD [address] [place] [address] documented as of this encounter Goals Goal [...] Name Priority Date/Time Associated Diagnosis Comments ECG 12-LEAD Routine 07/16/2025 1:44 PM EDT documented in this encounter Results * ECG 12 lead (07/16/2025 1:44 PM EDT) us Historical Provider ECG ORDERABLES Final Res ult documented in this encounter Visit Diagnoses Not on filedocumented in this encounter Additional Health Concerns Assessment Noted Time PHQ-9 Depression Total Score: 0 02/22/20 23 1:22 PM EDT documented as of this encounter Care Teams Sander Machine Relationship Specialty Start Date End Date Andriy Scott MD [address] [place] [address] PCP - General Internal Medicine 04/05/20 documented as of this encounter
--- OUTSIDE RECORDS SUMMARY | 2025-07-20 16:24 | XMS_ITS | Encounter Summary ---
Author Organization [employer] Address [address] [facility] [address] [place] [address] Care Team Providers Care Mixing Plant Operator Name Role Phone Andriy Scott MD Primary Care Prov ider Encounter Details Date Type Department Care Team ([facility] Contact Info) Description 11/23/2022 Telephone [facility] [address] [place] [address] Andriy Scott MD [address] [place] [address] Social History Tobacco Use Types Packs/Day Years [...] Upcoming Encounters Date Type Department Care Team ([facility] Contact Info) Description 07/30/2025 9:30 AM EDT Telemedicine [facility] [address] [place] [address] Andriy Scott MD [address] [place] [address] 10/12/2025 10:45 AM EST Office Visit [facility] [address] [place] [address] Andriy Scott MD [address] [place] [address] documented as of this encounter Visit Diagnoses Not on filedocumented in this encounter Care Teams Mixing Plant Operator Relationship Specialty Start Date End Date Andriy Scott MD [address] [place] [address] PCP - General Internal Medicine 04/05/20 documented as of this encounter
--- OUTSIDE RECORDS SUMMARY | 2025-07-20 16:24 | XMS_ITS | Encounter Summary ---
Author Organization [employer] Address [address] [facility] [address] [place] [address] Care Team Providers Care Turret Lathe Tender Name Role Phone Andriy Scott MD Primary Care Prov ider Encounter Details Date Type Department Care Team (Latest Contact Info) Description 07/20/2025 Travel Social History Tobacco Use Types Packs/Day [...] 9:30 AM EDT Telemedicine [facility] [address] [place] [address] Andriy Scott MD [address] [place] [address] 10/12/2025 10:45 AM EST Office Visit [facility] [address] [place] [address] Andriy Scott MD [address] [place] [address] documented as of this encounter Goals Goal [...] documented as of this encounter Care Teams Turret Lathe Tender Relationship Specialty Start Date End Date Andriy Scott MD [address] [place] [address] PCP - General Internal Medicine 04/05/20 documented as of this encounter
[2025-07-20 18:43] LABS: Anion Gap 13 (12-20); Blood Urea Nitrogen 22 mg/dL (9-16); Calcium 9.9 mg/dL (8.4-10.2); Carbon Dioxide 28 mmol/L (22-29); Chloride 106 mmol/L (96-108); Estimated Glomerular Filt Rate 49; Iron 69 mcg/dL (30-160); Percent Iron Saturation 29 % (15-50); Potassium 5.0 mmol/L (3.3-5.1); Sodium 142 mmol/L (135-145); Total Iron Binding Capacity 242 mcg/dL (228-428); Unsaturated Iron Binding 173 ug/dL
[2025-07-20 19:04] LABS: Folate 7.6 ng/mL (> or = 4.0); Vitamin B12 1593 pg/mL (200-900)
== END 2025-07-20 15:28 | disposition home or self-care (01) ==
LOC: HO.CHCLDS 15:27
PROVIDERS: Absent Provider Internal Medicine Cardiovascular Disease
DX: R53.83 Other fatigue (principal); I10 Essential (primary) hypertension; I25.10 Atherosclerotic heart disease of native coronary artery without angina pectoris; I77.1 Stricture of artery
CPT/HCPCS: 36415; 80048; 82306; 82607; 82746; 83540

== ENCOUNTER 2025-07-22 14:12 | Outpatient (REF) | payer OTHER, SELFPAY ==
--- OUTSIDE RECORDS SUMMARY | 2025-07-20 14:45 | XMS_ITS | Encounter Summary ---
Author Organization [employer] Address [address] [facility] [address] [place] [address] Care Team Providers Care Hand Buffer Name Role Phone Andriy Scott MD Primary Care Prov ider Reason for Referral * Consultation (STAT) - Authorized Specialty Diagnoses / Procedures Referred By Contac t Referred To Contact Neurology Diagnoses Abnormal computed tomography angiography of head Melissa Riggs CNP [address] [place] [address] Phone: tel: fax: Shameka La MD [address] [place] [address] [place] [address] Phone: tel: fax: Referral ID Status Reason Start Date Expiration Date Visits Requested Visits Authorized [id number] Authorized Specialty Services Required 07/20/2025 07/20/2026 1 1 Encounter Details Date Type Department Care Team (Late st Contact Info) Description 07/20/2025 2:45 PM EDT Office Visit [facility] [address] [place] [address] Melissa Riggs CNP [address] [place] [address] Type 2 diabetes mellitus with stage 3a chronic kidney disease, without long-term current use of insulin (CMS/HCC) (Primary Dx); Abnormal computed tomography angiography of [...] documented in this encounter Progress Notes * Melissa Riggs, LALITO - 07/20/2025 2:45 PM EDT Images from the original note were not included. Subjective Patient ID: Amee Hartman is a 79 y.o. female with PMH of diabetes, HTN, CKD who presents for ED f/u. HPI Pt seen at [facility] 07/15/25 for intermittent dyspnea on exertion and [...] and her daughter who is her primary housekeeper child care declined. CT angio head/neck 07/16/25: CXR 07/16/25 Impression No acute pulmonary disease. Mild cardiomegaly is stable allowing for improved depth inspiration since the prior study performed 07/20/2015. Pt referred to neuro regarding CT imaging. [...] that she has been unable to attend [facility]. She reports she is eating breakfast and dinner. For physical activity she usually does dancing she likes walking. In 04/28/2025 pt had low Vit B12. CT abdomen pelvis wo contrast 07/16/25 No acute findings in abdomen/pelvis Last mammo 08/2024 neg Review of Systems Constitutional: Negative for appetite [...] Discussed low sodium diet and adequate hydration Continue on daily aspirin Type 2 diabetes mellitus with stage 3a chronic kidney disease, without long-term current use of insulin ([facility]) - Primary Relevant Orders POCT glucose manually resulted (Completed) Pt A1c at goal of <7 she is no longer in diabetic range, controlled Continue follow up with nephrology and cardiology Fatigue Relevant Orders Vitamin B12/Folate, Serum Panel Vitamin D, 25-Hydroxy, Total, Immunoassay Iron And Total Iron Binding Capacity Pt expressing non specific fatigue over last 2 weeks. She also has unintended weight loss of ~13lbssince 07/01/25, this is concerning. Pt not having any signs/sx of GI bleed, CT Abd scan was neg 06/2025. I encouraged increasing exercise to also help stimulate appetite. I encouraged adherence to daily multivitamin I will repeat b12, vitamin D, and iron studies to further evaluate her fatigue. I also ordered additional lab work to rule out adrenal insufficiency. Ordered U/A as last U/A in ED showed WBCs and RBCs I advised continued follow up with her exhibits manager She has f/u with Gastro 10/2025, will request to have this appt moved up. No recent colonoscopy found on chart, upon review it may have been 2014? Other Visit Diagnoses Abnormal computed tomography angiography of head Relevant Orders Referral to Neurology No focal neuro deficits today on exam I will place new referral to neuro to further evaluate abnormality on head imaging in hospital. ED precautions in place I advised an updated physical with PCP documented in this encounter Miscellaneous Notes * Addendum Note - Melissa Riggs CNP - 07/20/2025 2:45 PM EDTAddended by: MELISSA RIGGS on: 07/20/2025 07:45 PM Modules accepted: Orders documented in this encounter Plan of Treatment Upcoming Encounters Date Type Department Care Team (Late st Contact Info) Description 10/12/2025 10:45 AM EST Office Visit [facility] [address] [place] [address] Andriy Scott MD [address] [place] [address] Scheduled Orders Name Type Priority Associated Diagnoses Orde r Schedule Cortisol Random Lab Routine Other fatigue Expected: 07/20/2025 (Approximate), Expires: 07/20/2026 ACTH, Plasma Lab Routine Other fatigue Expected: 07/20/2025 (Approximate), Expires: 07/20/2026 Urinalysis, Complete, with Reflex to Culture Lab Routine Other fatigue Expected: 07/20/2025 (Approximate), Expires: 07/20/2026 Scheduled Referrals Name Type Priority Associated Diagnoses Orde r Schedule Referral to Neurology Outpatient Referral STAT Abnormal computed tomography angiography of head Expected: 07/20/2025 (Approximate), Expires: 07/20/2026 documented as of this encounter Goals Goal Patient Goal Type Associated Problems Recent Progress Patient-Stated? Author Blood Pressure < 140/90 Blood Pressure 148/81(2024 11:09 AM EDT) No Mi Alcaraz PharmD Reduce adverse events General No change(2023 1:55 PM EST) Yes Mi Alcaraz PharmD Note: 01/20/24: Patient complaining of leg swelling- ?d/t famotidine? 12/02/23: Patient complaining of feeling tired/weak - ?d/t doxazosin. - This resolved as of 01/20/24 documented as of this encounter Procedures Procedure Name Priority Date/Time Associated Diagnosis Comments VITAMIN D,25-OH,TOTAL,IA Routine 07/20/2025 3:28 PM EDT Other fatigue VITAMIN B12/FOLATE, SERUM PANEL Routine 07/20/2025 3:28 PM EDT Other fatigue IRON AND TOTAL IRON BINDING CAPACITY Routine 07/20/2025 3:28 PM EDT Other fatigue BASIC METABOLIC PANEL Routine 07/20/2025 3:28 PM EDT Primary hypertension POCT GLUCOSE Routine 07/20/2025 2:39 PM EDT Type 2 diabetes mellitus with stage 3a chronic kidney disease, without long-term current use of insulin ([facility]) documented in this encounter Results * (ABNORMAL) Basic Metabolic Panel (07/20/2025 3:28 PM EDT) [facility] Signature Sodium 142 135 - 145 mmol/L [facility] Potassium 5.0 3.3 - 5.1 mmol/L [facility] Chloride 106 96 - 108 mmol/L [facility] Carbon Dioxide 28 22 - 29 mmol/L [facility] Anion Gap 13 12 - 20 [facility] Urea Nitrogen (BUN) 22(H) 9 - 16 mg/dL [facility] Creatinine, Serum 1.08 0.5 - 1.4 mg/dL [facility] Estimated Glomerular Filt Rate 49 [facility] Comment:Chronic Kidney Disea se: Estimated GFR < 60 mL/min/1.29t7Hssbtc Kidney Disease: Estimated GFR < 15 mL/min/1.73m2 Glucose 96 60 - 115 mg/dL [facility] Calcium 9.9 8.4 - 10.2 mg/dL [facility] Blood Venous blood specimen / Unknown 07/20/2025 3:28 PM EDT 07/20/2025 5:39 PM EDT [facility] LAB BLOOD ORDERABLES Lola l Result Performing Organization Address City/[facility]/ZIP Co de Phone Number [facility] [address] [place] [phone] * Iron And Total Iron Binding Capacity (07/20/2025 3:28 PM EDT) Iron 69 30 - 160 mcg/dL [facility] Total Iron Binding Capacity 242 228 - 428 mcg/dL [facility] Percent Iron Saturation 29 15 - 50 % [facility] Unsaturated Iron Binding 173 ug/dL [facility] Blood Venous blood specimen / Unknown 07/20/2025 3:28 PM EDT 07/20/2025 5:39 PM EDT [facility] LAB BLOOD ORDERABLES Lola l Result [facility] [address] [place] [phone] * Vitamin D, 25-Hydroxy, Total, Immunoassay (07/20/2025 3:28 PM EDT) Vitamin D 25-OH Total 56.8 >30 ng/mL [facility] Comment: Health Based Reference Values*< 20 ng/mL Odxnklowp80-38 ng/mL Insufficient> 30 ng/mL Sufficient*Ramírez IRAHETA. N Engl J Med. 2007;357:266-280There is no well-established upper level of normal vitamin Dlevels. Some laboratories use 50 ng/mL as an upper limit ofnormal. However, toxicity is patient-dependent and may occurat any level. Careful correlation with the patient'spresentation is necessary and, if there is concern forvitamin D toxicity, treatment should be consideredirrespective of the serum level.Care must be taken in interpreting Vitamin D results fromdifferent laboratories and methodologies. Published datademonstrated that results from patients undergoinghemodialysis may show a negative bias when tested withvarious automated 25-OH vitamin D assays when compared toLC-MS/MS.When testing samples from patients whose predominant form ofVitamin D is Vitamin D2, such as patients receiving VitaminD2 supplementation, results that are subtherapeutic shouldbe confirmed with another method such as LC-MS/MS. Blood Venous blood specimen / Unknown 07/20/2025 3:28 PM EDT 07/20/2025 5:39 PM EDT [facility] LAB BLOOD ORDERABLES Lola l Result [facility] [address] [place] [phone] * (ABNORMAL) Vitamin B12/Folate, Serum Panel (07/20/2025 3:28 PM EDT) Pathologist [facility] Vitamin B12 1,593(H) 200 - 900 pg/mL [facility] Comment:NORMAL 200-900 PG/ML INDETERMINATE 160-199 PG/ML DEFICIENT < 160 PG/ML Folate 7.6 > or = 4.0 ng/mL [facility] Comment:Reference Values:> o r = 4.0 ng/mL< 4.0 ng/mL suggests folate deficiency Methotrexate, aminopterin and folinic acid(leucovorin) are chemotherapeutic agents whose molecularstructures are similar to folate; therefore, the Architectfolate assay cannot be used for patients using these drugs. Blood Venous blood specimen / Unknown 07/20/2025 3:28 PM EDT 07/20/2025 5:39 PM EDT [facility] LAB BLOOD ORDERABLES Lola l Result [facility] [address] [place] [phone] [phone] * POCT glucose manually resulted (07/20/2025 2:39 PM EDT) Glucose Blood, POC 119 60 - 200 mg/dL QC Media Lot # Comment:[id number] Lot# Expiration Date Comment:11/13/2025 Blood Capillary blood specimen / Unknown 07/20/2025 2:39 PM EDT [facility] POINT OF CARE TEST ENTER/ EDIT ORDERABLES Final Result documented in this encounter Visit Diagnoses Diagnosis Type 2 diabetes mellitus with stage 3a chronic kidney disease, without long-term current use of insulin ([facility])- Primary Abnormal computed tomography angiography of head Other fatigue Primary hypertension Unspecified essential hypertension documented in this encounter Additional Health Concerns Assessment Noted Time PHQ-9 Depression Total Score: 0 02/22/20 23 1:22 PM EDT documented as of this encounter Care Teams Hand Buffer Relationship Specialty Start Date End Date Andriy Scott MD [address] [place] [phone] PCP - General Internal Medicine 04/05/20 documented as of this encounter
--- OUTSIDE RECORDS SUMMARY | 2025-07-22 10:30 | XMS_ITS | Encounter Summary ---
Author Organization [employer] Address [address] [facility] [address] [place] [address] Care Team Providers Care Resin Painter Name Role Phone Andriy Scott MD Primary Care Prov ider Encounter Details Date Type Department Care Team ([facility] Contact Info) Description 07/22/2025 10:30 AM EDT Telemedicine [facility] [address] [place], [place] [phone] Andriy Scott MD [address] [place] [address] Weakness (Primary Dx) Social History Tobacco Use Types [...] Sign Reading Time Taken Comments Blood Pressure 148/81 07/22/2025 11:09 AM EDT Pulse 59 07/22/2025 11:09 AM EDT Temperature - - Respiratory Rate - - Oxygen Saturation - - Inhaled Oxygen Concentration - - Weight - - Height - - Body Mass Index - - documented in this encounter Plan of Treatment Upcoming Encounters Date Type Department Care Team (Late st Contact Info) Description 10/12/2025 10:45 AM EST Office Visit [facility] [address] [place] [address] Andriy Scott MD [address] [place] [address] Scheduled Orders Name Type Priority Associated Diagnoses Orde r Schedule TSH W/Reflex to FT4 Lab Routine Weakness Expected: 07/22/2025 (Approximate), Expires: 07/22/2026 documented as of this encounter Goals Goal [...] as of this encounter Visit Diagnoses Diagnosis Weakness- Primary Other malaise and fatigue documented in this encounter Additional Health Concerns Assessment Noted Time PHQ-9 Depression Total Score: 0 02/22/20 23 1:22 PM EDT documented as of this encounter Care Teams Resin Painter Relationship Specialty Start Date End Date Andriy Scott MD [address] [place] [address] PCP - General Internal Medicine 04/05/20 documented as of this encounter
--- OUTSIDE RECORDS SUMMARY | 2025-07-22 14:57 | XMS_ITS | Encounter Summary ---
Author Organization [employer] Address [address] [facility] 7t [place] [address] Care Team Providers Care Jelly Filter Tender Name Role Phone Andriy Scott MD Primary Care Prov ider Reason for Visit * Reason Onset Date Comments Call Back Request 02/15/2025 Encounter Details Date Type Department Care Team ([facility] Contact Info) Description 02/15/2025 Telephone [facility] [address] [place] [address] Andriy Scott MD [address] [place] [address] Call Back Request Social History Tobacco Use [...] she has a Tele Visit Appt with [facility] today at1 pm. Pt states did not receive any call not even one to confirm the Appt. Contact pt at [phone] documented in this encounter Plan of Treatment Upcoming Encounters Date Type Department Care Team (Late st Contact Info) Description 10/12/2025 10:45 AM EST Office Visit [facility] [address] [place] [address] Andriy Scott MD [address] [place] [address] documented as of this encounter Goals Goal [...] ?d/t doxazosin. - This resolved as of 2/26/24 documented as of this encounter Visit Diagnoses Diagnosis Non-seasonal allergic rhinitis due to fungal spores documented in this encounter Additional Health Concerns Assessment Noted Time PHQ-9 Depression Total Score: 0 02/22/20 23 1:22 PM EDT documented as of this encounter Care Teams Jelly Filter Tender Relationship Specialty Start Date End Date Andriy Scott MD [address] [place] [id number] PCP - General Internal Medicine 04/05/20 documented as of this encounter
--- OUTSIDE RECORDS SUMMARY | 2025-07-22 14:57 | XMS_ITS | Encounter Summary ---
Author Organization [employer] Address [address] [facility] 7t [place] [address] Care Team Providers Care Speech Language Pathologist Assistant Name Role Phone Andriy Scott MD Primary Care Prov ider Encounter Details Date Type Department Care Team ([facility] Contact Info) Description 12/23/2024 Orders Only [facility] [address] [place], [place] [phone] ProviderKaren MD Social History Tobacco Use Types [...] Description 10/12/2025 10:45 AM EST Office Visit [facility] [address] [place], [place] [phone] Andriy Scott MD [address] [place], [place] [phone] documented as of this encounter Goals Goal [...] documented as of this encounter Care Teams Speech Language Pathologist Assistant Relationship Specialty Start Date End Date Andriy Scott MD [address] [place] [address] PCP - General Internal Medicine 04/05/20 documented as of this encounter
--- OUTSIDE RECORDS SUMMARY | 2025-07-22 14:57 | XMS_ITS | Encounter Summary ---
Author Organization [employer] Address [address] [facility] [address] [place] [address] Care Team Providers Care Green Belt Name Role Phone Andriy Scott MD Primary Care Prov ider Encounter Details Date Type Department Care Team (Latest Contact Info) Description 06/15/2019 Abstract [facility] CONVERSIONS Dental, Provider, DDS Social History [...] Description 10/12/2025 10:45 AM EST Office Visit [facility] [address] [place] [address] Andriy Scott MD [address] [place] [address] documented as of this encounter Visit Diagnoses Not on filedocumented in this encounter Care Teams Green Belt Relationship Specialty Start Date End Date Andriy Scott MD [address] [place] [address] PCP - General Internal Medicine 04/05/20 documented as of this encounter
--- OUTSIDE RECORDS SUMMARY | 2025-07-22 14:57 | XMS_ITS | Encounter Summary ---
Author Organization [employer] Address [address] [facility] [address] [place] [address] Care Team Providers Care Maintenance Shop Clerk Name Role Phone Andriy Scott MD Primary Care Prov ider Encounter Details Date Type Department Care Team ([facility] st Contact Info) Description 03/05/2024 Orders Only [facility] [address] [place], [place] [phone] Andriy Scott MD [address] [place] [address] Type 2 diabetes mellitus with stage 3a chronic kidney disease, without long-term current use of insulin ([facility]) Social History Tobacco Use Types Packs/Day [...] 10/12/2025 10:45 AM EST Office Visit [facility] [address] [place] [address] Andriy Scott MD [address] [place] [address] documented as of this encounter Goals Goal [...] disease, without long-term current use of insulin ([facility]) documented in this encounter Additional Health Concerns Assessment Noted Time PHQ-9 Depression Total Score: 0 02/22/20 23 1:22 PM EDT documented as of this encounter Care Teams Maintenance Shop Clerk Relationship Specialty Start Date End Date Andriy Scott MD [address] [place] [address] PCP - General Internal Medicine 04/05/20 documented as of this encounter
--- OUTSIDE RECORDS SUMMARY | 2025-07-22 14:57 | XMS_ITS | Clinical Summary ---
Author Organization [employer] Address [address] [facility] [address] [place] [address] Care Team Providers Care Spiritual Minister Name Role Phone Andriy Scott MD Primary [...] 30 tablet 024 Active TRUEplus Lancets 33G [facility] TEST BLOOD SUGAR TWICE DAILY 100 each 11 024 Active fluticasone (Flonase) 50 MCG/ACT nasal sprayIndications :Non-seasonal allergic rhinitis due to fungal spores Administer 1 spray into each nostril Once per day. Shake gently. Before first use, prime pump. After use, clean tip and replace cap. 16 g 11 025 2025 Active sodium chloride ([place]) 0.65 % nasal spray Administer 1 spray [...] OTHER DAY IN THE MORNING 60 tablet 025 Active Trulicity 0.75 MG/0.5ML solution auto-injectorInd ications:Type 2 diabetes mellitus with stage 3a chronic kidney disease, without long-term current use of insulin ([facility]) INJECT ONE PEN (=0.75MG) SUBCUTANEOUSLY ONCE A WEEK DIRECTED 2 mL 025 Active Aspirin Low Dose 81 MG chewable [...] mouth Once per day. 30 tablet 3 025 Active carvedilol (Coreg) 6.25 MG tablet Take 6.25 mg by mouth with breakfast and with evening meal. Active glucose blood (FREESTYLE LITE) test stripIndications :Type 2 diabetes mellitus without complication, without long-term current use of insulin ([facility]) USE TO TEST BLOOD SUGAR TWICE DAILY 100 strip 025 Active valsartan (Diovan) 80 MG tablet Take 2 tablets (160 mg) by mouth in the morning and 2 tablets (160 mg) in the evening. 120 tablet 025 Active glucose blood (FREESTYLE LITE) test stripIndications :Type 2 diabetes mellitus without complication, without long-term current use of insulin ([facility]) TEST BLOOD SUGAR TWICE DAILY 100 [...] day. 135 tablet 1 025 2024 Discontinued valsartan (Diovan) 80 MG tablet Take 80 mg by mouth in the morning and 80 mg in the evening. 2024 Discontinued(R eorder (will not trigger notification to Pharmacy)) doxazosin (Cardura) 2 MG tabletIndication s:Primary hypertension TAKE 1 TABLET BY MOUTH EVERY MORNING 30 tablet 025 2024 Discontinued Active Problems Problem Noted [...] if not improving Asthma 11/30/2024 CAD in kashia artery 11/30/2024 Class 2 obesity 11/30/2024 Chronic [...] and valsartan 80mg bid sent by her civil rights representative that she has not started, will increase [...] kidney 02/06/2021 Coronary artery disease invo lving kashia heart without angina pectoris 12/15/2020 Overview (11/30/2024): [...] Coronary atherosclerosis 05/18/2015 Overview (07/09/2023): Followed by [facility] Dr.Robert Ward Followed by [facility] Dr.Robert Ward Assessment & Plan (01/09/2024 [...] Encounters Date Type Department Care Team Description 07/22/2025 10:30 AM EDT Telemedicine [facility] [address] [place] [address] Andriy Scott MD Weakness (Primary Dx) 07/22/2025 Telephone [facility] [address] [place] [address] Andriy Scott MD Medication Question 07/22/2025 Travel 07/22/[address] [facility] [address] [place] [phone] Andriy Scott MD Nurse Triage 07/21/2025 Telephone [facility] [address] [place] [address] Disha Riggs CNP Care Coordination 07/20/2025 2:45 PM EDT Office Visit [facility] [address] [place] [address] Disha Riggs CNP Type 2 diabetes mellitus with stage 3a chronic kidney disease, without long-term current use of insulin (CMS/HCC) (Primary Dx); Abnormal computed tomography angiography of head; Other fatigue; Primary hypertension 07/20/2025 Travel 07/19/2025 Orders Only [facility] [address] [place] [phone] ProviderKaren MD 07/16/[address] [facility] [address] [place] [phone] Andriy Scott MD Increase of medication 07/13/2025 Refill [facility] [address] [place] [address] Andriy Scott MD Type 2 diabetes mellitus without complication, without long-term current use of insulin (CMS/HCC); Primary hypertension 07/12/[address] [facility] [address] [place] [phone] Andriy Scott MD ER Follow-up 07/05/2025 Orders Only GENERIC EXTERNAL DATA DEPARTMENT Provider, Generic External Data 07/01/2025 3:30 PM EDT Office Visit [facility] [address] [place] [address] Andriy Scott MD Type 2 diabetes mellitus with stage 3a chronic kidney disease, without long-term current use of insulin (CMS/HCC); Primary hypertension 07/01/2025 Refill [facility] [address] [place] [address] Andriy Scott MD Primary hypertension 07/01/2025 Travel 06/12/[address] [facility] [address] [place] [address] Andriy Scott MD Primary hypertension 06/11/[address] [facility] [address] [place] [address] Andriy Scott MD Osteopenia of lumbar spine; Mixed hyperlipidemia 06/10/[address] [facility] [address] [place] [address] Andriy Scott MD Type 2 diabetes mellitus with stage 3a chronic kidney disease, without long-term current use of insulin (CMS/HCC) 06/08/[address] [facility] [address] [place] [address] Andriy Scott MD 05/20/2025 Telephone [facility] [address] [place] [address] Andriy Scott MD 05/18/2025 9:40 AM EDT Office Visit [facility] [address] [place] [address] Maryjo العراقي, OD Type 2 diabetes mellitus with stage 3a chronic kidney disease, without long-term current use of insulin ([facility]) (Primary Dx) 05/18/2025 Travel 05/12/[address] [facility] [address] [place] [address] Andriy Scott MD 05/06/[address] [facility] [address] [place] [address] Andriy Scott MD Numbness of left foot (Primary Dx) 05/06/2025 Telephone [facility] [address] [place] [address] Andriy Scott MD Referral 04/29/2025 Telephone [facility] [address] [place] [address] Andriy Scott MD Results; Medication Question 04/28/2025 10:15 AM EDT Telemedicine [facility] [address] [place] [address] Andriy Scott MD Essential hypertension (Primary Dx); Chronic idiopathic constipation; Anemia in stage 3b chronic kidney disease (CMS/HCC) 04/28/2025 Travel from Last 3 Months Immunizations [...] Pulse 59 07/22/2025 11:09 AM EDT Temperature 36.5 C (97.7 F) 07/20/2025 [...] Description 10/12/2025 10:45 AM EST Office Visit [facility] [address] [place] [address] Andriy Scott MD [address] [place] [address] Health Maintenance Due Date Last Done Comments [...] Procedure Name Priority Date/Time Associated Diagnosis Comments BASIC METABOLIC PANEL Routine 07/20/2025 3:28 PM EDT Primary hypertension IRON AND TOTAL IRON BINDING CAPACITY Routine 07/20/2025 3:28 PM EDT Other fatigue VITAMIN D,25-OH,TOTAL,IA Routine 07/20/2025 3:28 PM EDT Other fatigue VITAMIN B12/FOLATE, SERUM PANEL Routine 07/20/2025 3:28 PM EDT Other fatigue POCT GLUCOSE Routine 07/20/2025 2:39 PM EDT Type 2 diabetes mellitus with stage 3a chronic kidney disease, without long-term current use of insulin ([facility]) ECG 12-LEAD Routine 07/16/2025 1:44 PM [...] Recently Relevant to Health Maintenance Results * Vitamin D, 25-Hydroxy, Total, Immunoassay (07/20/2025 3:28 PM EDT) Vitamin D 25-OH Total 56.8 >30 ng/mL [facility] Comment: Health Based Reference Values*< 20 ng/mL Ftelvumhd18-75 ng/mL Insufficient> 30 ng/mL Sufficient*Ramírez IRAHETA. N [...] 3:28 PM EDT 07/20/2025 5:39 PM EDT [facility] LAB BLOOD ORDERABLES Lola larson Result [facility] [address] [place] [phone] * (ABNORMAL) Vitamin B12/Folate, Serum Panel (07/20/2025 3:28 PM EDT) Only the most recent of2 resultswithin the time period is included. Vitamin B12 1,593(H) 200 - 900 pg/mL [facility] Comment:NORMAL 200-900 PG/ML INDETERMINATE 160-199 PG/ML DEFICIENT < 160 PG/ML Folate 7.6 > or = 4.0 ng/mL [facility] Comment:Reference Values:> o r = 4.0 ng/mL< 4.0 ng/mL suggests folate deficiency Methotrexate, aminopterin and folinic acid(leucovorin) are chemotherapeutic agents whose molecularstructures are similar to folate; therefore, the Architectfolate assay cannot be used for patients using these drugs. Blood Venous blood specimen / Unknown 07/20/2025 3:28 PM EDT 07/20/2025 5:39 PM EDT [facility] LAB BLOOD ORDERABLES Lola l Result Performing Organization Address [facility] de Phone Number [facility] [address] [place] [address] [phone] * Iron And Total Iron Binding Capacity (07/20/2025 3:28 PM EDT) Only the most recent of2 resultswithin the time period is included. Pathologist [facility] Iron 69 30 - 160 mcg/dL [facility] Total Iron Binding Capacity 242 228 - 428 mcg/dL [facility] Percent Iron Saturation 29 15 - 50 % [facility] Unsaturated Iron Binding 173 ug/dL [facility] Blood Venous blood specimen / Unknown 07/20/2025 3:28 PM EDT 07/20/2025 5:39 PM EDT [facility] LAB BLOOD ORDERABLES Lola l Result Performing Organization Address [facility] de Phone Number [facility] [address] [place] [phone] * (ABNORMAL) Basic Metabolic Panel (07/20/2025 3:28 PM EDT) [facility] Sodium 142 135 - 145 mmol/L [facility] Potassium 5.0 3.3 - 5.1 mmol/L [facility] Chloride 106 96 - 108 mmol/L [facility] Carbon Dioxide 28 22 - 29 mmol/L [facility] Anion Gap 13 12 - 20 [facility] Urea Nitrogen (BUN) 22(H) 9 - 16 mg/dL [facility] Creatinine, Serum 1.08 0.5 - 1.4 mg/dL [facility] Estimated Glomerular Filt Rate 49 [facility] Comment:Chronic Kidney Disea se: Estimated GFR < 60 mL/min/[id number] Kidney Disease: Estimated GFR < 15 mL/min/1.73m2 Glucose 96 60 - 115 mg/dL [facility] Calcium 9.9 8.4 - 10.2 mg/dL [facility] Blood Venous blood specimen / Unknown 07/20/2025 3:28 PM EDT 07/20/2025 5:39 PM EDT Result [facility] LAB BLOOD ORDERABLES Lola l Result [facility] [address] [place] [phone] * POCT glucose manually resulted (07/20/2025 2:39 PM EDT) Only the most recent of2 resultswithin the time period is included. Glucose Blood, POC 119 60 - 200 mg/dL QC Media Lot # Comment:[id number] Lot# Expiration Date Comment:11/13/2025 Blood Capillary blood specimen / Unknown 07/20/2025 2:39 PM EDT Result [facility] POINT OF CARE TEST ENTER/ EDIT ORDERABLES Final Result * ECG 12 lead (07/16/2025 1:44 PM EDT) Result [facility] Historical Provider ECG ORDERABLES Final Res ult * (ABNORMAL) Protein Creatinine Ratio, Urine (07/05/2025 2:10 PM EDT) [facility] Protein, Total, Random Urine 13(H) <12 mg/dL [facility] Protein/Creatin ine Ratio, Ur 0.09 <0.2 [facility] Comment:The spot urine prote in:creatinine ratio may increase to 0.3during normal . 07/05/2025 2:10 PM EDT 07/05/2025 5:27 PM EDT Result [facility] Generic External Data Provider LAB URINE ORDERAB LES Final Result [facility] [address] [place] [address] [phone] * Albumin, Random Urine W/Creatinine (07/05/2025 2:10 PM EDT) Creatinine, Urine 145.70 mg/dL [facility] Microalbumin Urine 28.0 mg/L [facility] Microalbum Creatinine Ratio Ur 19.2 <30 ug/mg cr [facility] Comment:Albumin/Creatinine R atio Reference Ranges: Normal: < 30 ug/mg creatinine Microalbuminuria: 30 - 300 ug/mg creatinineClinical Albuminuria: > 300 ug/mg creatinine 07/05/2025 2:10 PM EDT 07/05/2025 5:27 PM EDT Generic External Data Provider LAB URINE ORDERAB LES Final Result Performing Organization Address [facility] Co de Phone Number [facility] [address] [place] [phone] * Creatinine, Serum (07/05/2025 2:03 PM EDT) Creatinine, Serum 0.89 0.5 - 1.4 mg/dL [facility] Estimated Glomerular Filt Rate >60 [facility] Comment:Chronic Kidney Disea se: Estimated GFR < 60 mL/min/[id number] Kidney Disease: Estimated GFR < 15 mL/min/1.73m2 07/05/2025 2:03 PM EDT 07/05/2025 5:28 PM EDT Generic External Data Provider LAB BLOOD ORDERAB LES Final Result Performing Organization Address [facility] Co de Phone Number [facility] [address] [place] [phone] * (ABNORMAL) CBC auto differential (07/05/2025 2:03 PM EDT) Only the most recent of2 resultswithin the time period is included. White Blood Count 6.7 4.8 - 10.8 X10*3/uL [facility] Red Blood Count 3.99(L) 4.20 - 5.50 X10*6/uL [facility] Hemoglobin 11.1(L) 12.0 - 16.0 g/dl [facility] Hematocrit 34.7(L) 37.0 - 47.0 % [facility] Mean Corpuscular Volume 87.0 80.0 - 98.0 fL [facility] Mean Corpuscular Hemoglobin 27.8 27.0 - 33.0 pg [facility] Mean Corpuscular HGB Conc 32.0 31.0 - 35.0 g/dl [facility] Red Cell Distribution Width 14.0 11.0 - 16.0 % [facility] Platelet Count 302 160 - 400 X10*3/uL [facility] Mean Platelet Volume 9.9 9.4 - 12.3 fL [facility] Neutrophils Percent Auto 56.7 45 - 73 % [facility] Imm Gran Pct Auto 0.3 0.0 - 0.4 % [facility] Lymphocytes Percent Auto 30.1 20 - 40 % [facility] Monocytes Percent Auto 6.7 2 - 11 % [facility] Eosinophils Percent Auto 5.8(H) 0 - 4 % [facility] Basophils Percent Auto 0.4 0 - 2 % [facility] NRBC Pct Auto 0.0 0.0 - 0.2 /100WBC [facility] Neutrophils Absolute Auto 3.8 2.0 - 8.3 x10*3/uL [facility] Imm Gran Abs Auto 0.02 0.00 - 0.03 X10*3/uL [facility] Lymphocytes Absolute Auto 2.0 1.2 - 4.9 X10*3/uL [facility] Monocytes Absolute Auto 0.5 0.1 - 1.2 X10*3/uL [facility] Eosinophils Absolute Auto 0.4 0.0 - 0.4 X10*3/uL [facility] Basophils Absolute Auto 0.0 0.0 - 0.2 X10*3/uL [facility] NRBC Abs Auto 0.000 0.0 - 0.012 X10*3/uL [facility] 07/05/2025 2:03 PM EDT 07/05/2025 5:28 PM EDT us Generic External Data Provider LAB BLOOD ORDERAB LES Final Result Performing Organization Address [facility] Co de Phone Number [facility] [address] [place] [phone] * (ABNORMAL) BUN (Blood Urea Nitrogen) (07/05/2025 2:03 PM EDT) Urea Nitrogen (BUN) 22(H) 9 - 16 mg/dL [facility] 07/05/2025 2:03 PM EDT 07/05/2025 5:28 PM EDT us Generic External Data Provider LAB BLOOD ORDERAB LES Final Result Performing Organization Address [facility] de Phone Number [facility] [address] [place] [phone] * (ABNORMAL) PTH, Intact Without Calcium (07/05/2025 2:03 PM EDT) Parathyroid Hormone, Intact 83.8(H) 8.7 - 77.1 pg/mL [facility] 07/05/2025 2:03 PM EDT 07/05/2025 5:28 PM EDT us Generic External Data Provider LAB BLOOD ORDERAB LES Final Result Performing Organization Address [facility] Co de Phone Number [facility] [address] [place] [phone] * Calcium (07/05/2025 2:03 PM EDT) Calcium 9.7 8.4 - 10.2 mg/dL [facility] 07/05/2025 2:03 PM EDT 07/05/2025 5:28 PM EDT us Generic External Data Provider LAB BLOOD ORDERAB LES Final Result Performing Organization Address [facility] Co de Phone Number [facility] [address] [place] [phone] * (ABNORMAL) Electrolyte Panel (07/05/2025 2:03 PM EDT) Pathologist [facility] Sodium 145 135 - 145 mmol/L [facility] Potassium 4.8 3.3 - 5.1 mmol/L [facility] Chloride 108 96 - 108 mmol/L [facility] Carbon Dioxide 32(H) 22 - 29 mmol/L [facility] Anion Gap 10(L) 12 - 20 [facility] 07/05/2025 2:03 PM EDT 07/05/2025 5:28 PM EDT Generic External Data Provider LAB BLOOD ORDERAB LES Final Result Performing Organization Address [facility] Co de Phone Number [facility] [address] [place] [phone] * POCT HGB A1C (07/01/2025 3:37 PM EDT) Pathologist [facility] Hemoglobin A1C 5.7 4.0 - 5.7 % QC Media Lot # [id number] Lot# Expiration Date Blood 07/01/2025 3:37 PM EDT Andriy Hartman MD POINT OF CARE TEST ENTER/EDIT ORDERABLES Final Result * Lipid Panel, Standard (01/10/2024 8:24 AM EST) Triglycerides 76 <150 mg/dL [facility] Comment:Desirable Triglyceri de: less than 150 mg/dLBorderline High Triglyceride 150-199 mg/dLHigh Triglyceride: 200-499 mg/dLVery High Triglyceride: greater than or equal to 5OO mg/dL Cholesterol 125 <200 mg/dL [facility] Comment:Desirable Cholestero l: less than 200 mg/dLBorderline High Cholesterol: 200-239 mg/dLHigh Cholesterol: greater than 239 mg/dL LDL Cholesterol Calculated 63 <100 mg/dL [facility] Comment:Desirable LDL: less than 100 mg/dLNear Optimal/Above Optimal LDL: 110- 129 mg/dLBorderline High LDL: 130-159 mg/dLHigh LDL: 160-189 mg/dLVery High LDL: greater than or equal to 190 mg/dL HDL Cholesterol 47 >40 mg/dL [facility] Comment:Desirable HDL: great er than 40 mg/dL Note: This HDL assay may give artificially low results in patients with liver disease. Blood Venous blood specimen / Unknown 01/10/2024 8:24 AM EST 01/10/2024 12:30 PM EST us Andriy Hartman MD LAB BLOOD ORDERABL ES Final Result [facility] [address] [place] [address] [phone] from Last 3 Months or Most Recently Relevant to Health Maintenance Insurance [facility] (O D-SNP) [place] [id number] [facility] Care Teams Spiritual Minister Relationship Specialty Start Date End Date WinklerAndriy Gonzalez MD [address] [place] [phone] PCP - General Internal Medicine 04/05/20
--- OUTSIDE RECORDS SUMMARY | 2025-07-22 14:57 | XMS_ITS | Clinical Summary ---
Author Organization [address] [place] [address] Address [address] [place] [address] Phone Care Team Providers Care Catering Associate Name Role Phone Andriy Scott Primary Care [...] mg SL tabletIndicatio ns:Coronary artery disease involving ak chin coronary artery of ak chin heart without angina pectoris Place 1 tablet [...] Date Diagnosed Date Subclavian artery stenosis, left ([facility] V24) 0 06/15/2025 History of coronary artery stent placement 06/15 Overview (06/15/2025): Multiple Class 3 severe obesity due t o excess calories with serious comorbidity and body mass index (BMI) of 40.0 to 44.9 in adult ([facility] V24, [facility] V28) 12/15/2024 Assessment & Plan (12/15/2024 [...] Chest pain 11/26/2023 Dyslipidemia 11/26/2023 Stable angina ([facility] V24) 11/26/2023 PAD (peripheral artery disease) ([facility] V24) Overview (09/01/2024): Last Assessment & Plan: Follows with Dr. Bhatia Assessment & Plan (12/15/2024 4:02 PM EST): The patient offers no symptoms; no new concerning findings on exam today. We will continue to monitor this on serial imaging. Continue with efforts towards proper blood pressure and lipid control. Coronary artery disease invo lving ak chin heart without angina pectoris 12/15/2020 Overview (09/01/2024): [...] Date Type Department Care Team Description 07/22/2025 Telephone [facility] [address] [place] [phone] Santi Becker MD 07/21/2025 Telephone Gastroenterology - [place] [address] [facility] [address] [place] [address] Shannon Ceron PA 07/16/2025 Telephone [facility] [address] [place] [address] Yajaira Jauregui RN 07/15/2025 11:21 PM EDT - 07/16/2025 11:19 AM EDT Emergency [facility] Emergency [address] [place] [phone] Adriel Nguyen MD Landry, Jonathan P, MD Hypertension, unspecified type (Primary Dx) Discharge Disposition: Home or Self Care 07/14/2025 Telephone [facility] [address] [place] [address] Santi Becker MD 07/12/2025 Telephone [facility] [address] [place] [address] Santi Becker MD 06/29/[address] [place] [address] Santi Becker MD 06/25/2025 Telephone [facility] [address] [place] [address] Alma Clark MA 06/15/2025 1:00 PM EDT Office Visit [facility] [address] [place] [address] Santi Becker MD Coronary artery disease involving ak chin coronary artery of ak chin heart without angina pectoris (Primary Dx); PAD (peripheral artery disease) ([facility] V24); Primary hypertension; Carotid stenosis, bilateral; Subclavian artery stenosis, left ([facility] V24); History of coronary artery stent placement 05/24/2025 Telephone [facility] [address] [place] [phone] Santi Becker MD from Last 3 Months [...] AM EDT Office Visit Orthopedic Surgery - [place] [address] [facility] 250 [place] [phone] Phan Avalos DPM [address] [place] [address] 10/26/2025 2:40 PM EST Office Visit Gastroenterology - [place] [address] [facility] 200 [place] [phone] Shannon Ceron PA [address] [place] [address] Health Maintenance Due Date Last Done Comments [...] 03/27/2023 Diabetes: Annual GFR (Glomerular Filtration Rate) 07/20/2026 07/20/2025, 07/15/2025, 03/17/2019, Additional history exists Hypertension/CHF/CAD Annual BMP Blood Test 07/20/2026 07/20/2025, 07/15/2025, 03/17/2019, Additional history exists Cholesterol Screening (Lipid Panel) [...] Signed Date: 07/16/2025 10:23 ET Workstation ID: [id number] Transcribed By: Self Edit Transcribed Date: 07/16/2025 [...] Signed Date: 07/16/2025 10:23 ET Workstation ID: [id number] Transcribed By: Self Edit Transcribed Date: 07/16/2025 10:17 ET Jian Fay MD IMG CT PROCEDURES Final Res ult * Troponin I high sensitivity (07/16/2025 6:11 AM EDT) Only the most recent of2 resultswithin the time period is included. [facility] High Sensitivity Troponin I 51 <=54 ng/L LAB CHEMISTRY METHOD 07/16/2025 6:56 AM EDT [facility] Blood Venous blood specimen / Unknown Venipuncture / Unknown 07/16/2025 6:11 AM EDT 07/16/2025 6:23 AM EDT Narrative [facility] - 07/16/2025 6:56 AM EDT High levels of biotin in samples may falsely decrease hsTroponin values. Use caution when interpreting hsTroponin results in patients taking biotin who exhibit renal impairment (eGFR <60) or in patients taking more than 20 mg/day of biotin. us Adriel Nguyen MD LAB BLOOD ORDERABLES Final Resul t [facility] [address] [place] [address], * (ABNORMAL) Urinalysis with reflex microscopic (07/16/2025 1:59 AM EDT) [facility] Specific [place] Urine 1.009 1.003 - 1.030 LAB URINALYSIS - AUTOMATED METHOD 07/16/2025 3:10 AM [facility] pH, Urine 7.0 5.0 - 8.0 pH LAB URINALYSIS - AUTOMATED METHOD 07/16/2025 3:10 AM [facility] Leukocytes, Urine Small(A) Negative LAB URINALYSIS - AUTOMATED METHOD 07/16/2025 3:10 AM [facility] Nitrite, Urine Negative Negative LAB URINALYSIS - AUTOMATED METHOD 07/16/2025 3:10 AM [facility] Protein, Urine Negative <=Trace mg/dL LAB URINALYSIS - AUTOMATED METHOD 07/16/2025 3:10 AM [facility] Glucose, Urine Negative Negative mg/dL LAB URINALYSIS - AUTOMATED METHOD 07/16/2025 3:10 AM [facility] Ketones, Urine Negative Negative mg/dL LAB URINALYSIS - AUTOMATED METHOD 07/16/2025 3:10 AM [facility] Urobilinogen, Urine 0.2 0.2 - 1.0 mg/dL LAB URINALYSIS - AUTOMATED METHOD 07/16/2025 3:10 AM [facility] Bilirubin, Urine Negative Negative LAB URINALYSIS - AUTOMATED METHOD 07/16/2025 3:10 AM [facility] Blood, Urine Negative Negative LAB URINALYSIS - AUTOMATED METHOD 07/16/2025 3:10 AM [facility] RBC, Urine 1.5 0 - 4 /HPF LAB URINALYSIS - AUTOMATED METHOD 07/16/2025 3:10 AM [facility] WBC, Urine 4.4(H) 0 - 4 /HPF LAB URINALYSIS - AUTOMATED METHOD 07/16/2025 3:10 AM [facility] Squamous Epithelial, Urine 8 0 - 60 /LPF LAB URINALYSIS - AUTOMATED METHOD 07/16/2025 3:10 AM EDT [facility] Bacteria, Urine Negative Negative /HPF LAB URINALYSIS - AUTOMATED METHOD 07/16/2025 3:10 AM EDT [facility] Hyaline Casts, Urine 0.0 0 - 3 /LPF LAB URINALYSIS - AUTOMATED METHOD 07/16/2025 3:10 AM EDT [facility] Urine Urine specimen obtained by clean catch procedure / Unknown Non-blood Collection / Unknown 07/16/2025 1:59 AM EDT 07/16/2025 2:59 AM EDT us Adriel Nguyen MD LAB URINE ORDERABLES Final Resul t Performing Organization Address City/[facility]/ZIP Co de Phone Number [facility] [address] [place] [address], [place] [phone] * Dee urine culture tube (07/16/2025 1:59 AM EDT) Extra Tube Hold for add-ons. 07/16/2025 4:01 AM EDT [facility] Comment:Auto resulted. Urine Urine specimen obtained by clean catch procedure / Unknown Non-blood Collection / Unknown 07/16/2025 1:59 AM EDT 07/16/2025 2:59 AM EDT us Adriel Nguyen MD LAB URINE ORDERABLES Final Resul t Performing Organization Address [facility]/ZIP Co de Phone Number [facility] [address] [place] [address], [place] [phone] * CT Angio Head/Neck wo and/or w [...] results in mild less than 50% stenoses. Gsng-dw-xjgsmckr stenoses proximal left vertebral artery just distal [...] bifurcations results inmild less than 50% stenoses. Ctcl-uh-rnhadayg stenoses proximal leftvertebral artery just distal to [...] since the prior study performed 07/20/2015. Code 67228 -------- FINAL REPORT -------- Dictated By: Ernie Johnson Dictated Date: 07/16/2025 09:40 ET Assigned Physician: Ernie Johnson Reviewed and Electronically Signed By: Ernie Johnson Signed Date: 07/16/2025 09:42 ET Workstation ID: [id number] Transcribed By: Self Edit Transcribed Date: 07/16/2025 [...] since the prior study performed 07/20/2015. Code 87472 -------- FINAL REPORT -------- Dictated By: Ernie Johnson Dictated Date: 07/16/2025 09:40 ET Assigned Physician: Ernie Johnson Reviewed and Electronically Signed By: Ernie Johnson Signed Date: 07/16/2025 09:42 ET Workstation ID: [id number] Transcribed By: Self Edit Transcribed Date: 07/16/2025 09:40 ET us Adriel Nguyen MD IMG XR PROCEDURES Final Result * ECG 12 lead (07/16/2025 1:08 AM EDT) [facility] Ventricular Rate ECG 53 BPM GEMUSE Atrial Rate 53 BPM GEMUSE P-R Interval 166 ms GEMUSE QRS Duration 86 ms GEMUSE Q-T Interval 430 ms GEMUSE QTc 403 ms GEMUSE P Wave [place] 49 degrees GEMUSE R [place] 15 degrees GEMUSE T [place] 26 degrees GEMUSE ECG Interpretation Sinus bradycardia When compared with ECG of 25-JAN-2021 04:01, No significant change was found Confirmed by LONG BARTHOLOMEW ([id number]) on 07/17/2025 6:40:34 AM GEMUSE 07/16/2025 1:08 AM EDT 07/17/2025 6:40 AM EDT us Adriel Nguyen MD ECG ORDERABLES Final Result Performing Organization Address City/[facility]/ZIP Co de Phone Number GEMUSE * B-Type Natriuretic Peptide (BNP) (07/16/2025 12:46 AM EDT) [facility] BNP 19 <=100 pcg/mL LAB CHEMISTRY METHOD 07/16/2025 1:39 AM EDT [facility] Blood Venous blood specimen / Unknown Venipuncture / Unknown 07/16/2025 12:46 AM EDT 07/16/2025 1:05 AM EDT us Adriel Nguyen MD LAB BLOOD ORDERABLES Final Resul t [facility] [address] [place] [address], [place] [phone] * (ABNORMAL) CBC auto differential (07/15/2025 11:49 PM EDT) [facility] WBC 7.7 4.8 - 10.8 K/mcL LAB HEMETOLOGY METHOD 07/16/2025 12:21 AM [facility] RBC 4.20 3.80 - 4.80 M/mcL LAB HEMETOLOGY METHOD 07/16/2025 12:21 AM [facility] Hemoglobin 11.6 11.5 - 16.0 g/dL LAB HEMETOLOGY METHOD 07/16/2025 12:21 AM [facility] Hematocrit 36.6 35.0 - 47.0 % LAB HEMETOLOGY METHOD 07/16/2025 12:21 AM [facility] MCV 87.4 79.0 - 98.0 FL LAB HEMETOLOGY METHOD 07/16/2025 12:21 AM [facility] MCH 27.7 27.0 - 32.0 pcg LAB HEMETOLOGY METHOD 07/16/2025 12:21 AM [facility] MCHC 31.7(L) 32.0 - 37.0 g/dL LAB HEMETOLOGY METHOD 07/16/2025 12:21 AM [facility] RDW 13.6 11.0 - 15.0 % LAB HEMETOLOGY METHOD 07/16/2025 12:21 AM [facility] Platelets 285 130 - 400 K/mcL LAB HEMETOLOGY METHOD 07/16/2025 12:21 AM [facility] MPV 9.4 7.0 - 11.0 FL LAB HEMETOLOGY METHOD 07/16/2025 12:21 AM [facility] NRBC 0.0 <1.0 % LAB HEMETOLOGY METHOD 07/16/2025 12:21 AM [facility] NRBC Absolute 0.00 <0.10 K/mcL LAB HEMETOLOGY METHOD 07/16/2025 12:21 AM [facility] Neutrophils Relative 57.8 % LAB HEMETOLOGY METHOD 07/16/2025 12:21 AM [facility] Lymphocytes Relative 28.1 % LAB HEMETOLOGY METHOD 07/16/2025 12:21 AM [facility] Monocytes Relative 7.3 % LAB HEMETOLOGY METHOD 07/16/2025 12:21 AM [facility] Eosinophils Relative 6.1 % LAB HEMETOLOGY METHOD 07/16/2025 12:21 AM [facility] Basophils Relative 0.4 % LAB HEMETOLOGY METHOD 07/16/2025 12:21 AM [facility] Immature Granulocytes Relative 0.3 % LAB HEMETOLOGY METHOD 07/16/2025 12:21 AM [facility] Neutrophils Absolute 4.45 1.50 - 7.00 K/mcL LAB HEMETOLOGY METHOD 07/16/2025 12:21 AM [facility] Lymphocytes Absolute 2.16 1.00 - 5.00 K/mcL LAB HEMETOLOGY METHOD 07/16/2025 12:21 AM [facility] Monocytes Absolute 0.56 0.20 - 1.00 K/mcL LAB HEMETOLOGY METHOD 07/16/2025 12:21 AM [facility] Eosinophils Absolute 0.47 0.00 - 0.50 K/mcL LAB HEMETOLOGY METHOD 07/16/2025 12:21 AM [facility] Basophils Absolute 0.03 0.00 - 0.20 K/mcL LAB HEMETOLOGY METHOD 07/16/2025 12:21 AM [facility] Immature Granulocytes Absolute 0.02 0.00 - 0.03 K/mcL LAB HEMETOLOGY METHOD 07/16/2025 12:21 AM [facility] Blood Venous blood specimen / Unknown Venipuncture / Unknown 07/15/2025 11:49 PM EDT 07/16/2025 12:11 AM EDT us Adriel Nguyen MD LAB BLOOD ORDERABLES Final Resul t Performing Organization Address [facility]/ZIP Co de Phone Number [facility] [address] [place] [address], [place] [phone] * Magnesium (07/15/2025 11:49 PM EDT) Magnesium 1.9 1.9 - 2.6 mg/dL LAB CHEMISTRY METHOD 07/16/2025 12:35 AM EDT [facility] Blood Venous blood specimen / Unknown Venipuncture / Unknown 07/15/2025 11:49 PM EDT 07/16/2025 12:11 AM EDT us Adriel Nguyen MD LAB BLOOD ORDERABLES Final Resul t Performing Organization Address [facility]/ZIP Co de Phone Number [facility] [address] [place] [address], [place] [phone] * (ABNORMAL) Basic metabolic panel (07/15/2025 11:49 PM EDT) Pathologist [facility] Sodium 137 133 - 145 mmol/L LAB CHEMISTRY METHOD 07/16/2025 12:35 AM [facility] Potassium 4.3 3.5 - 5.5 mmol/L LAB CHEMISTRY METHOD 07/16/2025 12:35 AM [facility] Chloride 105 96 - 110 mmol/L LAB CHEMISTRY METHOD 07/16/2025 12:35 AM [facility] CO2 29 21 - 32 mmol/L LAB CHEMISTRY METHOD 07/16/2025 12:35 AM [facility] Anion Gap 3 3 - 11 LAB CHEMISTRY METHOD 07/16/2025 12:35 AM [facility] Glucose 97 70 - 100 mg/dL LAB CHEMISTRY METHOD 07/16/2025 12:35 AM [facility] BUN 28(H) 5 - 25 mg/dL LAB CHEMISTRY METHOD 07/16/2025 12:35 AM EDT [facility] Creatinine 0.91 0.50 - 1.10 mg/dL LAB CHEMISTRY METHOD 07/16/2025 12:35 AM EDT [facility] eGFR 64 >=60 mL/min/1. 73m2 LAB CHEMISTRY METHOD 07/16/2025 12:35 AM EDT [facility] Comment:Calculation based on the Chronic Kidney Disease Epidemiology Collaboration (CKD-EPI) equation refit without adjustment for race. BUN/Creatinine Ratio 30.8 LAB CHEMISTRY METHOD 07/16/2025 12:35 AM T [facility] Calcium 9.1 8.5 - 10.5 mg/dL LAB CHEMISTRY METHOD 07/16/2025 12:35 AM T [facility] Blood Venous blood specimen / Unknown Venipuncture / Unknown 07/15/2025 11:49 PM EDT 07/16/2025 12:11 AM EDT us Adriel Nguyen MD LAB BLOOD ORDERABLES Final Resul t [facility] [address] [place] [address], from Last 3 Months Insurance [facility] [employer] MEDICARE Member Subscriber Plan / Payer (Ef fective 2016-Present) Name:WILTON HARTMAN Relation to Subscriber:Self Name:Wilton Hartman Payer ID:[id number] Group ID:[id number] Type:Not on file Address: [place] [address] [address] [address] Care Teams Catering Associate Relationship Specialty Start Date End Date WinklerAndriy Gonzalez [address] [place] [address] PCP - General Internal Medicine 12/15/20
--- OUTSIDE RECORDS SUMMARY | 2025-07-22 14:57 | XMS_ITS | Encounter Summary ---
Author Organization [employer] Address [address] [facility] 7t [place] [address] Care Team Providers Care Wharfinger Chief Name Role Phone Andriy Scott MD Primary Care Prov ider Encounter Details Date Type Department Care Team ([facility] Contact Info) Description 05/20/2025 Telephone [facility] CHC MED & PEDS [address] [place], [place] [phone] Andriy Scott MD [address] [place] [address] Social History Tobacco Use Types Packs/Day Years [...] Description 10/12/2025 10:45 AM EST Office Visit [facility] CHC MED & PEDS [address] [place], [place] [phone] Andriy Scott MD [address] [place] [address] documented as of this encounter Goals Goal [...] documented as of this encounter Care Teams Wharfinger Chief Relationship Specialty Start Date End Date Andriy Scott MD [address] [place] [address] PCP - General Internal Medicine 04/05/20 documented as of this encounter
--- OUTSIDE RECORDS SUMMARY | 2025-07-22 14:57 | XMS_ITS | Encounter Summary ---
Author Organization [employer] Address [address] [facility] 7t [place] [address] Care Team Providers Care Interactive Media Marketing Specialist Name Role Phone Andriy Scott MD Primary Care Prov ider Encounter Details Date Type Department Care Team ([facility] Contact Info) Description 06/08/2025 Orders Only [facility] CHC MED & PEDS [address] [place], [place] [phone] Andriy Scott MD [address] [place] [address] Social History Tobacco Use Types Packs/Day Years [...] Description 10/12/2025 10:45 AM EST Office Visit [facility] CHC MED & PEDS [address] [place], [place] [phone] Andriy Scott MD [address] [place] [address] documented as of this encounter Goals Goal [...] documented as of this encounter Care Teams Interactive Media Marketing Specialist Relationship Specialty Start Date End Date Andriy Scott MD [address] [place] [address] PCP - General Internal Medicine 04/05/20 documented as of this encounter
--- OUTSIDE RECORDS SUMMARY | 2025-07-22 14:57 | XMS_ITS | Encounter Summary ---
Author Organization [employer] Address [address] [facility] [address] [place] [address] Care Team Providers Care Metallurgist Process Name Role Phone Andriy Scott MD Primary Care Prov ider Reason for Visit * Reason Onset Date Comments Nurse Triage 12/07/2024 Encounter Details Date Type Department Care Team ([facility] st Contact Info) Description 12/07/2024 Telephone [facility] CHC MED & PEDS [address] [place] [address] Andriy Scott MD [address] [place] [address] Nurse Triage Social History Tobacco Use Types [...] 12/07/2024 10:37 AM EST [place] [id number], 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 Ended call. Triage call [place] [employer] [place] [id number], Jacki. Pt reports having Covid 11/28/24 and [...] Description 10/12/2025 10:45 AM EST Office Visit [facility] CHC MED & PEDS [address] [place], [place] [phone] Andriy Scott MD [address] [place], [place] [phone] documented as of this encounter Goals Goal Patient Goal Type Associated Problems Recent Progress Patient-Stated? Author Blood Pressure < 140/90 Blood Pressure 148/81(2024 11:09 AM EDT) No Mi Alcaraz PharmD Reduce adverse events General No change(2023 1:55 PM EST) Yes iM Alcaraz PharmD Note: 01/20/24: Patient complaining of leg swelling- ?d/t famotidine? 12/02/23: Patient complaining of feeling tired/weak - ?d/t doxazosin. - This resolved as of 01/20/24 documented as of this encounter Visit Diagnoses Not on filedocumented in this encounter Additional Health Concerns Assessment Noted Time PHQ-9 Depression Total Score: 0 02/22/20 23 1:22 PM EDT documented as of this encounter Care Teams Metallurgist Process Relationship Specialty Start Date End Date Andriy Scott MD [address] [place] [address] PCP - General Internal Medicine 04/05/20 documented as of this encounter
--- OUTSIDE RECORDS SUMMARY | 2025-07-22 14:58 | XMS_ITS | Encounter Summary ---
Author Organization [employer] Address [address] [facility] 7t [place] [address] Care Team Providers Care Bookseamer Blindstitch Name Role Phone Andriy Scott MD Primary Care Prov ider Encounter Details Date Type Department Care Team ([facility] Contact Info) Description 07/19/2025 Orders Only [facility] [address] [place], [place] [phone] ProviderKaren MD Social History Tobacco Use Types [...] Description 10/12/2025 10:45 AM EST Office Visit [facility] MED & PEDS [address] [place] [address] Andriy Scott MD [address] [place], [place] [phone] documented as of this encounter Goals Goal [...] documented as of this encounter Care Teams Bookseamer Blindstitch Relationship Specialty Start Date End Date Andriy Scott MD [address] [place] [address] PCP - General Internal Medicine 04/05/20 documented as of this encounter
--- OUTSIDE RECORDS SUMMARY | 2025-07-22 14:58 | XMS_ITS | Encounter Summary ---
Author Organization [employer] Address [address] [facility] 7t [place] [address] Care Team Providers Care Veneer Sheet Repairer Name Role Phone Andriy Scott MD Primary Care Prov ider Reason for Visit * Reason Onset Date Comments Care Coordination 07/21/2025 Encounter Details Date Type Department Care Team (Late st Contact Info) Description 07/21/2025 Telephone [facility] CHC MED & PEDS [address] [place] [address] Disha Riggs, SKIN PEELING MACHINE OPERATOR [address] [place] [address] Care Coordination Social History Tobacco Use Types Packs/Day Years [...] encounter Miscellaneous Notes * Telephone Encounter - Eduar Hunt - 07/21/2025 11:07 AM EDT Tc from pt returning call back. Contact pt at [phone] * Telephone Encounter - Gemma Juarez RN - 07/21/2025 9:30 AM EDT TC to Love ELLIOTT RN spoke with Rhina in scheduling and explained pt symptoms including unintentionalweight loss of 13 lbs in the past 2 weeks. Rhina states they are booking out until October with all providers, however she will send a message to Jie IGNACIO's [place]. The [place] keeps a short list of pt to call first when there are cancellations and they will put the pt on the list. They will contact pt if there are any openings. Pt currently has an appointment for October 26. TC to pt x2. obstetrics nurse practitioner used. No way to leave voicemail. TC to pt daughter x2. obstetrics nurse practitioner used. No answer. Voicemail left that we are trying to getahold of her mother and to have her call the clinic back. Note routed to [facility] for FYI. documented in this encounter Plan of Treatment Upcoming Encounters Date Type Department Care Team (Late st Contact Info) Description 10/12/2025 10:45 AM EST Office Visit [facility] MED & PEDS [address] [place] [address] Andriy Scott MD [address] [place] [address] documented as of this encounter Goals Goal [...] documented as of this encounter Care Teams Veneer Sheet Repairer Relationship Specialty Start Date End Date Andriy Scott MD [address] [place] [address] PCP - General Internal Medicine 04/05/20 documented as of this encounter
--- OUTSIDE RECORDS SUMMARY | 2025-07-22 14:58 | XMS_ITS | Encounter Summary ---
Author Organization [employer] Address 75 [facility] 7 [place] [address] Care Team Providers Care Glass Technician/Installer Name Role Phone Andriy Scott MD Primary Care Prov ider Encounter Details Date Type Department Care Team (Latest Contact Info) Description 06/27/2022 Abstract [facility] CONVERSIONS Dental, Provider, DDS Social History Tobacco [...] Description 10/12/2025 10:45 AM EST Office Visit [facility] CHC MED & PEDS 505 [place] [address] Andriy Scott MD 505 [place] [address] documented as of this encounter Visit Diagnoses Not on filedocumented in this encounter Care Teams Glass Technician/Installer Relationship Specialty Start Date End Date Andriy Scott MD 505 [place] [address] PCP - General Internal Medicine 04/05/20 documented as of this encounter
--- OUTSIDE RECORDS SUMMARY | 2025-07-22 14:58 | XMS_ITS | Encounter Summary ---
Author Organization [employer] Address 75 [facility] 7t [place] [address] Care Team Providers Care Batch Mixer Name Role Phone Andriy Scott MD Primary [...] Description 10/12/2025 10:45 AM EST Office Visit [facility] CH[facility] MED & PEDS 505 [place] [address] Andriy Scott MD 505 [place] [address] documented as of this encounter Goals Goal [...] documented as of this encounter Care Teams Batch Mixer Relationship Specialty Start Date End Date Andriy Scott MD 505 [place] [address] PCP - General Internal Medicine 04/05/20 documented as of this encounter
--- OUTSIDE RECORDS SUMMARY | 2025-07-22 14:58 | XMS_ITS | Encounter Summary ---
Author Organization [facility] Address [address] [facility] [address] [place] [address] Phone Care Team Providers Care Cosmetologist Apprentice Name Role Phone Andriy Winkler Primary Care Provider [phone] Encounter Details Date Type Department Care Team (Late Contact Info) Description 06/30/2024 Office Communication [facility] [address] [place] [address] Tyra Escobedo ARNP [address] [address] Social History Tobacco Use Types [...] Visit [facility] [address] [address] Tyra Escobedo ARNP [address] [address] documented as of this encounter Visit Diagnoses Not on filedocumented in this encounter Care Teams Cosmetologist Apprentice Relationship Specialty Start Date End Date Andriy Winkler PCP - General Internal Medicine 03/08/21 documented as of this encounter
--- OUTSIDE RECORDS SUMMARY | 2025-07-22 14:58 | XMS_ITS | Encounter Summary ---
Author Organization [employer] Address 75 [facility] [address] [address] Care Team Providers Care Chainstitch Elastic Attacher Name Role Phone Andriy Scott MD Primary Care Prov ider Encounter Details Date Type Department Care Team ([facility] Contact Info) Description 12/07/2022 Orders Only [facility] [address] [place], [place] [phone] Tyra Anand LPN Social History Tobacco Use [...] Department Care Team (Late Contact Info) Description 10/12/2025 10:45 AM EST Office Visit [facility] PEDS [address] [place] [address] Andriy Scott MD 505 [place], [place] [phone] documented as of this encounter Visit Diagnoses Not on filedocumented in this encounter Care Teams Chainstitch Elastic Attacher Relationship Specialty Start Date End Date Andriy Scott MD 505 [place], [place] [phone] PCP - General Internal Medicine 04/05/20 documented as of this encounter
--- OUTSIDE RECORDS SUMMARY | 2025-07-22 14:58 | XMS_ITS | Encounter Summary ---
Author Organization [employer] Address 75 [facility] 7t [place] [address] Care Team Providers Care Director Of Radio Services Name Role Phone Andriy Scott MD Primary Care Prov ider Reason for Visit * Reason Comments Med Refill Encounter Details Date Type Department Care Team ([facility] Contact Info) Description 02/10/2024 Refill [facility] CHC MED & PEDS 505 [place], [place] [phone] Andriy Scott MD 505 [place] [address] Mixed hyperlipidemia Social History Tobacco Use Types [...] EST Office Visit [facility] MED & PEDS 505 [place] [address] Andriy Scott MD 505 [place] [address] documented as of this encounter Goals Goal [...] documented as of this encounter Care Teams Director Of Radio Services Relationship Specialty Start Date End Date Andriy Scott MD 505 [place] [address] PCP - General Internal Medicine 04/05/20 documented as of this encounter
--- OUTSIDE RECORDS SUMMARY | 2025-07-22 14:58 | XMS_ITS | Encounter Summary ---
Author Organization [employer] Address 75 [facility] 7t [place] [address] Care Team Providers Care Body Rolling Machine Tender Name Role Phone Andriy Scott MD Primary Care Prov ider Reason for Visit * Reason Onset Date Comments Returning call 04/08/2025 Encounter Details Date Type Department Care Team ([facility] Contact Info) Description 04/08/2025 Telephone [facility] 230 [place] [address] Andriy Scott MD 505 [place] [address] Returning call Social History Tobacco Use Types [...] pt call was made today at 9:15am. Specialist Icu does not find call. documented in this encounter Plan of Treatment Upcoming Encounters Date Type Department Care Team (Late st Contact Info) Description 10/12/2025 10:45 AM EST Office Visit [facility]S 505 [place] [address] Andriy Scott MD 505 [place] [address] documented as of this encounter Goals Goal [...] documented as of this encounter Care Teams Body Rolling Machine Tender Relationship Specialty Start Date End Date Andriy Scott MD [address] [place] [address] PCP - General Internal Medicine 04/05/20 documented as of this encounter
--- OUTSIDE RECORDS SUMMARY | 2025-07-22 14:58 | XMS_ITS | Encounter Summary ---
Author Organization [employer] Address 75 [facility] 7 [place] [address] Care Team Providers Care Valet Name Role Phone Andriy Scott MD Primary Care Prov ider Encounter Details Date Type Department Care Team (Latest Contact Info) Description 01/03/[address] [facility] CONVERSIONS Dental, Provider, DDS Social History [...] 10/12/2025 10:45 AM EST Office Visit [facility] CHC MED & PEDS 505 [place] [address] Andriy Scott MD 505 [place] [address] documented as of this encounter Visit Diagnoses Not on filedocumented in this encounter Care Teams Valet Relationship Specialty Start Date End Date Andriy Scott MD 505 [place] [address] PCP - General Internal Medicine 04/05/20 documented as of this encounter
--- OUTSIDE RECORDS SUMMARY | 2025-07-22 14:58 | XMS_ITS | Encounter Summary ---
Author Organization [employer] Address [address] [place] [address] Care Team Providers Care Social Welfare Research Worker Name Role Phone Andriy Scott Primary Care Provide r Encounter Details Date Type Department Care Team (Late st Contact Info) Description 07/22/2025 Telephone [facility] - [facility] [address] [facility] [address] [place] [address] Santi Becker MD [address] [place] [address] [place] [address] Social History Tobacco Use Types Packs/Day Years [...] as of this encounter Progress Notes * Leonardo Nice RN - 07/22/2025 10:06 AM EDT Was just in the [facility] ER on 07/15/25 for SOB, HTN, CKD, posterior headache, dyspnea on exertion, and left-sided chest pain - notes available in [facility] for review. States in ER notes pt compliant with meds. See TE from 07/16 Aldactone was increased from 25mg daily to 50mg daily, BMP to be drawn Saturday at PCP office. BMP was supposed to be drawn Friday 07/20 at PCP office. Lab results updated in Care Everywhere and resulting from 07/20, please review and advise. Called Sandie this AM. States ongoing weakness/fatigue/HTN/left sided chest discomfort since hospital DC - no worsening s/s (feels the same) and no new s/s. BP today 170/89 HR 56 in the AM prior to meds, 3 hours after meds 148/81 HR 59. 07/17 148/60 HR 52 in AM prior to meds 07/18 198/88 HR 57 in AM prior to meds 07/20 173/79 HR 50 in AM prior to meds States weight loss only and today's weight 154. Denies worsening MIKAEL, SOB. Denies CP. Has a decreased appetite, no increase in NA+. U/O has increased since the increase in the Spironolactone from 25mg to 50mg daily. Has been taking all other meds as prescribed in med module with no missed doses. Went over ER protocol for any ongoing concerning s/s. Do you want to see pt in a f/u? Any other recs? Saw PCP on 07/20 - notes in [facility] - BP 152/70 HR 56 in PCP office. * Mitzi Song - 07/22/2025 9:54 AM EDT Sandie, pt's granddaughter ([phone]) calls today, concerned about pt's health. She says pt has had high blood pressure readings lately and feels tired, just not being herself . Sandie says pt has been in and out of the hospital in the past month, and nothing has been resolved. She called pt's PCP and left a similar message this morning, but would like Dr Becker's input. Shewould like an appt. Please call and advise. documented in this encounter Plan of Treatment Upcoming Encounters Date Type Department Care Team (Late st Contact Info) Description 08/09/2025 10:30 AM EDT Office Visit [facility] - [place] [address] [address] Phan Avalos, DANISHA 230 [place] [address] 10/26/2025 2:40 PM EST Office Visit Gastroenterology - [place] 175 [facility] 175 [facility] [address] [place] [phone] Shannon Ceron PA 230 [place] [address] documented as of this encounter Visit Diagnoses Not on filedocumented in this encounter Care Teams Social Welfare Research Worker Relationship Specialty Start Date End Date Andriy Scott 230 [place], [place] PCP - General Internal Medicine 12/15/20 documented as of this encounter
--- OUTSIDE RECORDS SUMMARY | 2025-07-22 14:58 | XMS_ITS | Encounter Summary ---
Author Organization [employer] Address 75 [facility] [address], [place] [address] Care Team Providers Care Experimental Box Tester Name Role Phone Andriy Scott MD Primary Care Prov ider Encounter Details Date Type Department Care Team ([facility] Contact Info) Description 11/23/2022 Telephone [facility] MED & PEDS 505 [place], [place] [phone] Andriy Scott MD 505 [place] [address] Social History Tobacco Use Types Packs/Day Years [...] Upcoming Encounters Date Type Department Care Team ([facility] Contact Info) Description 10/12/2025 10:45 AM EST Office Visit [facility] MED & PEDS 505 [place] [address] Andriy Scott MD 505 [place] [address] documented as of this encounter Visit Diagnoses Not on filedocumented in this encounter Care Teams Experimental Box Tester Relationship Specialty Start Date End Date WinklerAndriy Gonzalez MD [address] [place] [address] PCP - General Internal Medicine 04/05/20 documented as of this encounter
--- OUTSIDE RECORDS SUMMARY | 2025-07-22 14:58 | XMS_ITS | Encounter Summary ---
Author Organization [employer] Address 75 [facility] 7 [place] [address] Care Team Providers Care Payroll Administrative Assistant Name Role Phone Andriy Scott MD Primary Care Prov ider Reason for Visit * Reason Onset Date Comments Medication Question 07/22/2025 Encounter Details Date Type Department Care Team ([facility] st Contact Info) Description 07/22/2025 Telephone [facility] CHC MED & PEDS 505 [place], [place] [phone] Andriy Scott MD 505 [place] [address] Medication Question Social History Tobacco Use Types Packs/Day Years [...] encounter Miscellaneous Notes * Telephone Encounter - Gemma Juarez RN - 07/22/2025 1:20 PM EDT TC from [facility] pharmacy Terrie. Terrie would like to know if knows cardiology switched pt's Valsartanto 80 BID. aware and is changing it to 160 BID and discontinuing cardura . RN called [facility] pharmacy Irina and relayed the message. Irina verbalized understanding. documented in this encounter Plan of Treatment Upcoming Encounters Date Type Department Care Team (Late st Contact Info) Description 10/12/2025 10:45 AM EST Office Visit [facility] MED & PEDS 505 [place] [address] Andriy Scott MD 505 [place] [address] documented as of this encounter Goals Goal [...] documented as of this encounter Care Teams Payroll Administrative Assistant Relationship Specialty Start Date End Date Andriy Scott MD [address] [place] [address] PCP - General Internal Medicine 04/05/20 documented as of this encounter
--- OUTSIDE RECORDS SUMMARY | 2025-07-22 14:58 | XMS_ITS | Encounter Summary ---
Author Organization [facility] Address [address] [place] [address] Care Team Providers Care Government Guard Name Role Phone Andriy Scott Primary Care Provide r Reason for Visit * Reason Onset Date Comments Provider Call Back 07/21/2025 Encounter Details Date Type Department Care Team ([facility] st Contact Info) Description 07/21/2025 Telephone Gastroenterology - [place] [address] [facility] [address] [place] [address] Shannon Ceron PA [address] [place] [phone] Social History Tobacco Use Types Packs/Day Years [...] as of this encounter Progress Notes * Rhina Griffiths - 07/21/2025 9:19 AM EDT Gemma from [facility] concerned about patient, she has lost 13 pounds in the last two pounds, has fatigue and she was just at the ED for shortness of breath and headaches. She is wondering if we can put her on the cancellation list to be seen sooner. Please advise. Any questions - call back # [phone] documented in this encounter Plan of Treatment Upcoming Encounters Date Type Department Care Team (Late st Contact Info) Description 08/09/2025 10:30 AM EDT Office Visit Orthopedic Surgery - [place] 250 175 [facility] 250 [place] [phone] Phan Avalos DPM 230 [place] [address] 10/26/2025 2:40 PM EST Office Visit Gastroenterology - [place] [address] [facility] 200 [place] [phone] Shannon Ceron PA 230 [place] [address] documented as of this encounter Visit Diagnoses Not on filedocumented in this encounter Care Teams Government Guard Relationship Specialty Start Date End Date Andriy Scott 230 [place], [place] PCP - General Internal Medicine 12/15/20 documented as of this encounter
--- OUTSIDE RECORDS SUMMARY | 2025-07-22 14:58 | XMS_ITS | Encounter Summary ---
Author Organization [employer] Address 75 [facility] 7t [place] [address] Care Team Providers Care Water Team Leader Name Role Phone Andriy Scott MD Primary Care Prov ider Reason for Visit * Reason Onset Date Comments Increase of medication 07/16/2025 Encounter Details Date Type Department Care Team ([facility] st Contact Info) Description 07/16/2025 Telephone [facility]ICINE 230 [place] [address] Andriy Scott MD 505 [place] [address] Increase of medication Social History Tobacco Use [...] in the ED yesterday for hypertension. The supervisor intermediates Dr. Anderson increased the spironolactone to 50 mg and wants a BMP done when he is seen on the . Lab order was faxed to [phone] and [phone]. Dr. Anderson would also update the pt's medication list. Stated would message provider to give her a heads up. Yajaira verbalized understanding and agreement with plan. * Telephone Encounter - Michelle Tineo - 07/16/2025 10:05 AM EDT TC from Y[facility]aira Angulo with [facility]: Pt was seen today as an emergency. Home Worker increased spironolactone (Aldactone) from 25 mg to 50 mg daily. Contact Yajaira for today at [phone] Any other day [phone] documented in this encounter Plan of Treatment Upcoming Encounters Date Type Department Care Team (Late st Contact Info) Description 10/12/2025 10:45 AM EST Office Visit [facility] MED & PEDS [address] [place] [address] Andriy Scott MD 505 [place] [address] documented as of this encounter Goals Goal [...] as of this encounter Care Teams Water Team Leader Relationship Specialty Start Date End Date Andriy Scott MD 505 [place] [address] PCP - General Internal Medicine 04/05/20 documented as of this encounter
--- OUTSIDE RECORDS SUMMARY | 2025-07-22 14:58 | XMS_ITS | Encounter Summary ---
Author Organization [employer] Address 75 [facility] 7t [place] [address] Care Team Providers Care Elder Assistant Name Role Phone Andriy Scott MD Primary Care Prov ider Encounter Details Date Type Department Care Team (Latest Contact Info) Description 07/22/2025 Travel Social History Tobacco Use Types Packs/Day [...] Description 10/12/2025 10:45 AM EST Office Visit [facility] CHC MED & PEDS 505 [place] [address] Andriy Scott MD 505 [place] [address] documented as of this encounter Goals Goal [...] documented as of this encounter Care Teams Elder Assistant Relationship Specialty Start Date End Date Andriy Scott MD 505 [place] [address] PCP - General Internal Medicine 04/05/20 documented as of this encounter
--- OUTSIDE RECORDS SUMMARY | 2025-07-22 14:58 | XMS_ITS | Encounter Summary ---
Author Organization [employer] Address 75 [facility] 7 [place] [address] Care Team Providers Care Assistant Golf Course Superintendent Name Role Phone Andriy Scott MD Primary Care Prov ider Encounter Details Date Type Department Care Team (Late Contact Info) Description 12/18/2022 Orders Only [facility] 230 [place], [place] [phone] Andriy Scott MD 505 [place] [address] Non-seasonal allergic rhinitis due to fungal spores [...] Description 10/12/2025 10:45 AM EST Office Visit [facility] CHC MED & PEDS 505 [place], [place] [phone] Andriy Scott MD 505 [place], [place] [phone] documented as of this encounter Visit Diagnoses Diagnosis Non-seasonal allergic rhinitis due to fungal spores- Primary documented in this encounter Care Teams Assistant Golf Course Superintendent Relationship Specialty Start Date End Date Andriy Scott MD [address] [place] [address] PCP - General Internal Medicine 04/05/20 documented as of this encounter
--- OUTSIDE RECORDS SUMMARY | 2025-07-22 14:58 | XMS_ITS | Encounter Summary ---
Author Organization [employer] Address [address] [place] [address] Care Team Providers Care Fox Raiser Name Role Phone Andriy Scott Primary Care Provide r Encounter Details Date Type Department Care Team (Late st Contact Info) Description 07/16/2025 Telephone [facility] - [facility] [address] [facility] [address] [place] [address] Yajaira Jauregui, BERTRAM Social History [...] regarding Dr. Becker's response and orders at [phone] and made her aware to have patient [...] and obtained fax # for lab at [facility] lab fax # [phone] Faxed BMP order. Received call from Wing at [facility] and relayed Dr. Becker's orders as well. Fax # to nurse's station there is [phone]-faxing BMP orders there as well. * Yajaira [...] on Saturday with Dr. Winkler at the [facility]. She can get the labs done [...] AM EDT Office Visit Orthopedic Surgery - [place] [address] [place] [address] [place] [phone] Phan Avalos DPM 230 [place] [address] 10/26/2025 2:40 PM EST Office Visit Gastroenterology - [place] [address] 175 [facility] 200 [place] [phone] Shannon Ceron PA 230 [place] [address] Scheduled Orders Name Type Priority Associated Diagnoses Orde r Schedule Basic metabolic panel Lab Routine Subclavian artery stenosis, left ([facility] V24) Coronary artery disease involving koi heart without angina pectoris, unspecified vessel or lesion type Primary hypertension 1 Occurrences starting 07/16/2025 until 07/16/2026 documented as of this encounter Visit Diagnoses Diagnosis Coronary artery disease involving koi heart without angina pectoris, unspecified vessel or lesion type- Primary Subclavian artery stenosis, left ([facility] V24) Atherosclerosis of other specified arteries Primary [...] 07/16/2025 added in this encounter Care Teams Fox Raiser Relationship Specialty Start Date End Date Andriy Scott 230 [place], [place] PCP - General Internal Medicine 12/15/20 documented as of this encounter
--- OUTSIDE RECORDS SUMMARY | 2025-07-22 14:58 | XMS_ITS | Encounter Summary ---
Author Organization [employer] Address [address] [place] [address] Care Team Providers Care Chili Maker Name Role Phone Andriy Scott Primary Care Provide r Reason for Visit * Reason Onset Date Comments Medication Problem 07/14/2025 Encounter Details Date Type Department Care Team (Late st Contact Info) Description 07/14/2025 Telephone [facility] - [facility] [address] [place] [address] Santi Becker MD [address] [place] [address] [address] [place] [address] Social History Tobacco Use Types Packs/Day Years [...] the answering service to contact the PM survey questionnaire designer physician and she will be further instructed [...] be sent in from a doctor in [place] with different directions when she was in [...] also just received a script today for [id number] mg qd from a [place] doctor Dr. Jay Sow phone # [phone] for Valsartan 80 mg qd #14 tabs. Pharmacist questioning which to fill. Called daughter back who spoke with patient . Patient at 3am BP 191/86 (felt weak) At 6am 186/87. She called [facility] and a nurse visited her. Unsure what BP was. Daughter thinks this doctor is from [facility] and ordered Valsartan 80 mg qd script sent to pharmacy. BP 2 hrs after meds today 175/80. Yesterday a.m. 2 hrs after meds 156/82. * Jamison Wallace - 07/14/2025 2:09 PM EDT Ed from [facility] states they received a prescription form [...] AM EDT Office Visit Orthopedic Surgery - [place] 250 175 [facility] [address] [place] [address] Phan Avalos DPM 230 [place] [address] 10/26/2025 2:40 PM EST Office Visit Gastroenterology - [place] [address] [facility] [address] [place] [phone] Shannon Ceron PA 230 [place] [address] documented as of this encounter Visit Diagnoses Not on filedocumented in this encounter Care Teams Chili Maker Relationship Specialty Start Date End Date Andriy Scott 230 [place], [place] PCP - General Internal Medicine 12/15/20 documented as of this encounter
--- OUTSIDE RECORDS SUMMARY | 2025-07-22 14:58 | XMS_ITS | Encounter Summary ---
Author Organization [employer] Address [address] [facility] 7[address] [place] [address] Care Team Providers Care Wafer Batter Mixer Name Role Phone Andriy Scott MD Primary Care Prov ider Reason for Visit * Reason Onset Date Comments Nurse Triage 07/22/2025 Encounter Details Date Type Department Care Team ([facility] st Contact Info) Description 07/22/2025 Telephone [facility] [address] [place] [address] Andriy Scott MD [address] [place] [address] Nurse Triage Social History Tobacco Use Types [...] encounter Miscellaneous Notes * Telephone Encounter - Xenia Arreola RN - 07/22/2025 11:25 AM EDT 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 * Telephone Encounter - Christian Salmon - 07/22/2025 11:17 AM EDT Tc from pt requesting a call back regarding prior message Contact pt at [phone] * Telephone Encounter - Xenia Arreola RN - 07/22/2025 9:45 AM EDT No solderer dipper needed as this blurb writer speaks Irish. Call returned to [facility] to triage belowat [phone]. Reports having onset of weakness and fatigue x 2 weeks. Pt denies any severe SWANSON, CP or SOB. Pt states having LUQ abd pain. No N/V. Decreased appetite. Pt advised that our office did attempt to get a sooner GI appt, pt was placed on a short wait list for GI [place] to contact if any cancellations. Pt advised that can have sooner telehealth with PCP today to discuss blood work results and see next steps to help treat patient sx. Pt agrees to sooner appt. Pt also give verbal consent for this blurb writer to speak with Granddaughter regarding above. Call to Sandie and advised of above, agrees to be available during call. Notified Dr. Peterson BATEMAN of added visit. Protocol Used: Weakness (Generalized) and Fatigue (Adult) Protocol-Based Disposition: See in Office or Video Visit Today Future Appointments Date Time Provider Department Center 07/22/2025 10:30 AM Andriy Hartman MD [facility] 10/12/2025 10:45 AM Andriy Hartman MD [facility] Insurance verified as active per Real Time Eligibility in [facility]. Positive Triage Questions: * Moderate weakness (e.g., interferes with work, school, normal activities) and lasts > 3 days * Taking a medicine that could cause weakness (e.g., blood pressure medications, diuretics) * All higher-acuity triage questions were negative Care Advice Discussed: * Reassurance and Education - Mild Dehydration * Drink Fluids * Cool Off * Reasons To Call Back - Still feeling weak after 2 hours of rest and fluids - Passes out (faints) - You become worse * Telephone Encounter - Christian Salmon - 07/22/2025 9:39 AM EDT Tc from pt granddaughter requesting to be contacted due to pt ending up in hospital twice already due to severe high blood pressure . Pt will be in there with granddaughter , pt does not understand very well and granddaughter wants to be called Contact at Sandie Kiser [phone] * Telephone Encounter - Michelle Tineo - 07/22/2025 9:13 AM EDT Symptoms: Lethargic (Tired), Weakness, Loss of Appetite Outcome: Schedule an urgent appointment (within 1 hour) or talk to a nurse or provider soon Reason: Getting worse The caller accepted this outcome. Contact pt at [phone] Need solderer dipper documented in this encounter Plan of Treatment Upcoming Encounters Date Type Department Care Team (Late st Contact Info) Description 10/12/2025 10:45 AM EST Office Visit [facility] MED & PEDS [address] [place] [address] Andriy Scott MD [address] [place] [address] documented as of this encounter Goals Goal [...] documented as of this encounter Care Teams Wafer Batter Mixer Relationship Specialty Start Date End Date Andriy Scott MD [address] [place] [address] PCP - General Internal Medicine 04/05/20 documented as of this encounter
--- OUTSIDE RECORDS SUMMARY | 2025-07-22 14:58 | XMS_ITS | Encounter Summary ---
Author Organization [employer] Address [address] [facility] 7[address] [place] [address] Care Team Providers Care Senior Advisory Name Role Phone Andriy Scott MD Primary Care Prov ider Encounter Details Date Type Department Care Team (Late st Contact Info) Description 11/07/2023 Abstract [facility] [address] [place] [address] Elder Akers DDS [address] [place] [address] Social History Tobacco Use Types Packs/Day Years [...] Description 10/12/2025 10:45 AM EST Office Visit [facility] MED & PEDS [address] [place] [address] Andriy Scott MD [address] [place] [address] documented as of this encounter Visit Diagnoses Not on filedocumented in this encounter Additional Health Concerns Assessment Noted Time PHQ-9 Depression Total Score: 0 02/22/20 23 1:22 PM EDT documented as of this encounter Care Teams Senior Advisory Relationship Specialty Start Date End Date Andriy Scott MD [address] [place] [address] PCP - General Internal Medicine 04/05/20 documented as of this encounter
--- OUTSIDE RECORDS SUMMARY | 2025-07-22 14:58 | XMS_ITS | Clinical Summary ---
Author Organization [facility] Address [address] [place] [phone] Phone Care Team Providers Care Silk Screen Cutter Name Role Phone Andriy Winkler Primary Care [...] Coronary atherosclerosis 05/18/2015 Overview (02/06/2021): Followed by [facility] Cardiology Dr.Robert Ward Abdominal pain [...] Office Visit [facility] [address] [facility] [address] [place] [address] Tyra Escobedo ARNP Chronic kidney disease, stage [...] Associates of the [facility] [address] [facility] [address] [place] [address] Tyra Escobedo, DEVANG [address] [facility] [address] [place] [phone] Health Maintenance Due Date Last Done Comments [...] * Creatinine (07/05/2025 5:28 PM EDT) Pathologist [facility] Creatinine Serum 0.89 0.5 - 1.4 mg/dL See order comments eGFR (Calc) >60 See orde r comments Comment: Chronic Kidney Disease: Estimated GFR < 60 mL/min/1.73m2 Severe Kidney Disease: Estimated GFR < 15 mL/min/1.73m2 07/05/2025 5:28 PM EDT 07/05/2025 5:28 PM EDT [facility]OD [facility]AB[facility] Final Result Performing Organization Address [facility] Phone Number [place] See order comments [place] [address] * (ABNORMAL) PTH, Intact (07/05/2025 5:28 PM EDT) [facility] Parathyroid Hormone, Intact 83.8(H) 8.7 - 77.1 pg/mL See order comments 07/05/2025 5:28 PM EDT 07/05/2025 5:28 PM EDT [facility] LAB HISTORICAL-CONVERSIONS- UNSOLICITED RESULTS Final Result Performing Organization Address [facility] de Phone Number [place] See order comments [place] [address] * (ABNORMAL) CBC and Differential (07/05/2025 5:28 PM EDT) Pathologist [facility] WBC 6.7 4.8 - 10.8 X10*3/uL See [...] EDT 07/05/2025 5:28 PM EDT Tyra Escobedo [facility] LAB BLOOD ORDERABLES Final Result See order comments [place] [address] * (ABNORMAL) BUN (07/05/2025 5:28 PM EDT) BUN 22(H) 9 - 16 mg/dL See order comments 07/05/2025 5:28 PM EDT 07/05/2025 5:28 PM EDT Tyra [employer] [facility] LAB BLOOD ORDERABLES Final Result See order comments [place] [address] * Calcium (07/05/2025 5:28 PM EDT) Calcium 9.7 8.4 - 10.2 mg/dL See order comments 07/05/2025 5:28 PM EDT 07/05/2025 5:28 PM EDT [facility] LAB BLOOD ORDERABLES Final Result Performing Organization Address [facility] de Phone Number [place] See order comments [place] [address] * (ABNORMAL) Electrolyte panel (07/05/2025 5:28 PM EDT) Sodium 145 135 - 145 mmol/L See order comments Potassium 4.8 3.3 - 5.1 mmol/L See order comments Chloride 108 96 - 108 mmol/L See order comments Bicarbonate (CO2) 32(H) 22 - 29 mmol/L See order comments Anion Gap 10(L) 12 - 20 See order comments 07/05/2025 5:28 PM EDT 07/05/2025 5:28 PM EDT [facility] LAB BLOOD ORDERABLES Final Result Performing Organization Address [facility] Phone Number [place] See order comments [place] [address] * (ABNORMAL) Urine Protein / creatinine ratio (07/05/2025 5:27 PM EDT) Protein Urine Random 13(H) <12 mg/dL See order comments Protein/Creatin ine Ratio, Urine 0.09 <0.2 See order comments Comment: The spot urine protein:creatinine ratio may increase to 0.3 during normal . Urine Urine specimen obtained by clean catch procedure / Unknown 07/05/2025 5:27 PM EDT 07/05/2025 5:27 PM EDT [facility] LAB URINE ORDERABLES Final Result Performing Organization Address [facility] Phone Number [place] See order comments [place] [address] * Albumin, urine, random (07/05/2025 5:27 PM [...] order comments [place] [address] * (ABNORMAL) Hemoglobin A1c (06/19/2023 9:50 AM EDT) Hemoglobin A1C 5.8(H) (4.0-5.6) % [facility] Comment: MONITORING: In known diabetic patients, hemoglobin A1c targets should be discussed with health care provider. DIAGNOSTIC USE: The [place] Diabetes Association (ADA) and the World Health [...] Supplement 1 Testing performed or reported by [facility], a Service of [facility], [address] [place] [address] Alessandro Lopez MD, Marine Firefighter [facility]# [id number] Blood specimen (specimen) Venous blood / Unknown 06/19/2023 9:50 AM EDT 06/19/2023 9:52 AM EDT us Zohaib De La Rosa MD LAB BLOOD ORDERABLES Final Re sult DAVE from Last 3 Months or Most Recently Relevant to Health Maintenance Insurance [address] [place] [address] [facility] ([id number]) [address] [place] [address] [facility] ([id number]) Care Teams Silk Screen Cutter Relationship Specialty Start Date End Date Andriy Winkler PCP - General Internal Medicine 03/08/21
--- OUTSIDE RECORDS SUMMARY | 2025-07-22 14:58 | XMS_ITS | Encounter Summary ---
Author Organization [employer] Address [address] [facility] [address] [place] [address] Care Team Providers Care Sap Crm Developer Name Role Phone Andriy Scott MD Primary Care Prov ider Encounter Details Date Type Department Care Team ([facility] Contact Info) Description 04/09/2023 Orders Only [facility] MED & PEDS [address] [place] [address] Joann Patrick LPN Social History Tobacco Use [...] Upcoming Encounters Date Type Department Care Team ([facility] Contact Info) Description 10/12/2025 10:45 AM EST Office Visit [facility] MED & PEDS [address] [place] [address] Andriy Scott MD [address] [place] [address] documented as of this encounter Visit Diagnoses Not on filedocumented in this encounter Additional Health Concerns Assessment Noted Time PHQ-9 Depression Total Score: 0 02/22/20 23 1:22 PM EDT documented as of this encounter Care Teams Sap Crm Developer Relationship Specialty Start Date End Date Andriy Scott MD [address] [place] [address] PCP - General Internal Medicine 04/05/20 documented as of this encounter
--- OUTSIDE RECORDS SUMMARY | 2025-07-22 14:58 | XMS_ITS | Encounter Summary ---
Author Organization [employer] Address [address] [facility] 7t [place] [address] Care Team Providers Care Non Profit Director Name Role Phone Andriy Scott MD Primary Care Prov ider Encounter Details Date Type Department Care Team ([facility] Contact Info) Description 04/06/2024 Orders Only [facility] CHC MED & PEDS [address] [place], [place] [phone] Andriy Scott MD [address] [place] [address] Social History Tobacco Use Types Packs/Day Years [...] 10/12/2025 10:45 AM EST Office Visit [facility] CH[facility] MED & PEDS [address] [place], [place] [phone] Andriy Scott MD [address] [place] [address] documented as of this encounter Goals Goal [...] documented as of this encounter Care Teams Non Profit Director Relationship Specialty Start Date End Date Andriy Scott MD [address] [place] [address] PCP - General Internal Medicine 04/05/20 documented as of this encounter
--- OUTSIDE RECORDS SUMMARY | 2025-07-22 14:58 | XMS_ITS | Encounter Summary ---
Author Organization [employer] Address [address] [facility] 7t [place] [address] Care Team Providers Care Fertilizer Applicator Name Role Phone Andriy Scott MD Primary Care Prov ider Reason for Visit * Reason Comments Med Refill Encounter Details Date Type Department Care Team ([facility] Contact Info) Description 05/17/2024 Refill [facility] CHC MED & PEDS [address] [place], [place] [phone] Andriy Scott MD [address] [place] [address] Type 2 diabetes mellitus with stage 3a chronic kidney disease, without long-term current use of insulin ([facility]) Social History Tobacco Use Types Packs/Day [...] Description 10/12/2025 10:45 AM EST Office Visit [facility] MED & PEDS [address] [place] [address] Andriy Scott MD [address] [place] [address] documented as of this encounter Goals Goal [...] disease, without long-term current use of insulin ([facility]) documented in this encounter Additional Health Concerns Assessment Noted Time PHQ-9 Depression Total Score: 0 02/22/20 23 1:22 PM EDT documented as of this encounter Care Teams Fertilizer Applicator Relationship Specialty Start Date End Date Andriy Scott MD [address] [place] [address] PCP - General Internal Medicine 04/05/20 documented as of this encounter
--- OUTSIDE RECORDS SUMMARY | 2025-07-22 14:58 | XMS_ITS | Clinical Summary ---
Author Organization [facility] Address [address] [place] [address] Care Team Providers Care Applications Development Consultant Name Role Phone Zita Connell PA-C Primary Care Provider [phone] Source Comments PLEASE NOTE, if this patient [...] Coronary atherosclerosis 05/18/2015 Overview (05/18/2015): Followed by [facility] Cardiology Dr.Robert Ward Coronary artery disease invo lving [place] coronary artery without angina pectoris 05/18/2015 Abdominal [...] - Adult Primary Care Asthma, mild intermittent ([facility]) 05/13/2015 Overview (05/17/2015): Extrinsic asthma unspecified- as [...] file Insurance [employer] MEDICARE [place] Care Teams Applications Development Consultant Relationship Specialty Start Date End Date Zita Connell PA-C [address] [place] [address] PCP - General 01/20/19
--- OUTSIDE RECORDS SUMMARY | 2025-07-22 14:58 | XMS_ITS | Encounter Summary ---
Author Organization [employer] Address [address] [facility] 7[address] [place] [address] Care Team Providers Care Slope Runner Name Role Phone Andriy Scott MD Primary Care Prov ider Encounter Details Date Type Department Care Team ([facility] Contact Info) Description 03/25/2023 Orders Only [facility] MED & PEDS [address] [place] [address] Joann Patrick LPN Social History Tobacco Use [...] Type Department Care Team ([facility] Contact Info) Description 10/12/2025 10:45 AM EST Office Visit [facility] MED & PEDS [address] [place] [address] Andriy Scott MD [address] [place] [address] documented as of this encounter Visit Diagnoses Not on filedocumented in this encounter Additional Health Concerns Assessment Noted Time PHQ-9 Depression Total Score: 0 02/22/20 23 1:22 PM EDT documented as of this encounter Care Teams Slope Runner Relationship Specialty Start Date End Date Andriy Scott MD [address] [place] [address] PCP - General Internal Medicine 04/05/20 documented as of this encounter
[2025-07-22 18:29] LABS: Appearance Urine Clear; Glucose Urine UA Negative (Negative); PH 7.0 (5.0-9.0); Specific Gravity - Urine 1.010 (1.005-1.025); UMIC TRIGGER UACC YES
[2025-07-22 18:43] LABS: UACC Culture Trigger YES
== END 2025-07-22 14:13 | disposition home or self-care (01) ==
LOC: HO.CHCLDS 14:12
PROVIDERS: Internal Medicine
DX: R53.83 Other fatigue (principal); R53.1 Weakness
CPT/HCPCS: 36415; 81001; 82533; 84443; 87086

== ENCOUNTER 2025-09-16 09:25 | Outpatient (REF) | payer OTHER, SELFPAY ==
--- OUTSIDE RECORDS SUMMARY | 2025-09-14 09:30 | XMS_ITS | Encounter Summary ---
Author Organization [employer] Address [address] [facility] 7t [place] [address] Care Team Providers Care Pass Worker Name Role Phone Andriy Scott MD Primary Care Prov ider Encounter Details Date Type Department Care Team ([facility] st Contact Info) Description 09/14/2025 9:30 AM EDT Office Visit [facility] CHC MED & PEDS [address] [place], [place] [phone] Andriy Scott MD [address] [place] [address] Essential hypertension (Primary Dx); Type 2 diabetes mellitus with stage 3a chronic kidney disease, without long-term current use of insulin (HCC) Social History Tobacco Use Types Packs/Day Years Used Date Smoking Tobacco: Never Smokeless Tobacco: Never Alcohol Use Standard Drinks/Week Comments Never 0 (1 standard drink = 0.6 oz pur e alcohol) Depression Answer Date Recorded Patient Health Questionnaire-9 Score 3 08/19/2025 Patient Health Questionnaire-9 Score 3 08/19/2025 Last PHQ-9: Questionnaire Data Not on file 0 08/19/2025 Housing Stability Answer Date Recorded What is your housing situation today? I have adi feliciano 08/19/[address] you li ve. Do you have problems with any of the following? None of the above 08/19/2025 Food Insecurity Answer Date Recorded Within the past 12 months, y ou worried that your food would run out before you got money to buy more: Never True 08/19/2025 Within the past 12 months,th e food you bought just didn't last and you didn't have enough money to get more: Never True Transportation Answer Date Recorded In the past 12 months, has l ack of transportation kept you from medical appts, meetings, work or from getting things needed for daily living? No 08/19/2025 Utilities Answer Date Recorded In the past 12 months, has t he electric, gas, oil or water company threatened to shut off services in your home? No 08/19/2025 Depression Answer Date Recorded Patient Health Questionnaire-2 Score 0 08/19/2025 Internet Access Answer Date Recorded Internet Access Q1 Yes 08/19/2025 Internet Access Q2 Not on file 08/19/2025 Comments Unknown Sex and Gender Information Value Date Recorded Sex Assigned at Female 09/24/2022 10:28 AM EDT Legal Sex Female 10:28 AM EDT Gender Identity Female 09/24/2022 10:28 AM EDT Sexual Orientation Straight 09/24/2022 10 :28 AM EDT documented as of this encounter Last Filed Vital Signs Vital Sign Reading Time Taken Comments Blood Pressure 164/89 09/14/2025 10:31 AM EDT Pulse 80 09/14/2025 9:50 AM EDT Temperature 37.1 C (98.7 F) 09/14/2025 9:50 AM EDT Respiratory Rate 16 09/14/2025 9:50 AM EDT Oxygen Saturation - - Inhaled Oxygen Concentration - - Weight 66.2 kg (146 lb) 09/14/2025 9:50 AM EDT Height 142.2 cm (4' 8 ) 09/14/2025 9:50 AM EDT Body Mass Index 32.73 09/14/2025 9:50 AM EDT documented in this encounter Progress Notes * Andriy Hartman MD - 09/14/2025 9:30 AM EDT Subjective Patient ID: Amee Hartman is a 79 y.o. female who presents for No chief complaint on file.. Hypertension This is a chronic problem. The problem is controlled. Pertinent negatives include no chest pain, headaches, palpitations or shortness of breath. Review of Systems Respiratory: Negative for shortness of breath. Cardiovascular: Negative for chest pain and palpitations. Neurological: Negative for headaches. Objective Physical Exam Constitutional: Appearance: Normal appearance. Cardiovascular: Rate and Rhythm: Normal rate and regular rhythm. Pulmonary: Effort: Pulmonary effort is normal. No respiratory distress. Breath sounds: No stridor. No wheezing or rhonchi. Abdominal: General: Abdomen is flat. There is no distension. Palpations: There is no mass. Tenderness: There is no abdominal tenderness. Hernia: No hernia is present. Neurological: General: No focal deficit present. Mental Status: She is alert and oriented to person, place, and time. Psychiatric: Mood and Affect: Mood normal. Behavior: Behavior normal. Assessment/Plan Problem List Items Addressed This Visit Essential hypertension - Primary Uncontrolled, asymptomatic, will add nifedipine 30mg, continue valsartan/spironolactone/carvedilol,keep low sodium diet and keep blood pressure log, follow up in 1 month Relevant Medications NIFEdipine XL (Procardia XL) 30 MG 24 hr tablet Type 2 diabetes mellitus with stage 3a chronic kidney disease, without long-term current use of insulin ([facility]) Relevant Orders POCT Glucose (Completed) documented in this encounter Miscellaneous Notes * Assessment & Plan Note - Andriy Hartman MD - 09/14/2025 11:03 AM EDTAssociated Problem(s): Essential hypertension Uncontrolled, asymptomatic, will add nifedipine 30mg, continue valsartan/spironolactone/carvedilol,keep low sodium diet and keep blood pressure log, follow up in 1 month documented in this encounter Plan of Treatment Upcoming Encounters Date Type Department Care Team (Late st Contact Info) Description 09/21/2025 2:15 PM EDT Telemedicine [facility] MED & PEDS [address] [place] [address] Andriy Scott MD [address] [place] [address] 09/27/2025 11:00 AM EST Clinical Support [facility] MED & PEDS [address] [place] [address] 10/12/2025 10:45 AM EST Office Visit [facility] MED & PEDS [address] [place] [address] Andriy Scott MD [address] [place] [address] documented as of this encounter Goals Goal Patient Goal Type Associated Problems Recent Progress Patient-Stated? Author Blood Pressure < 140/90 Blood Pressure 164/89(2024 10:31 AM EDT) No Mi Alcaraz PharmD Reduce adverse events General No change(2023 1:55 PM EST) Yes Mi Alcaraz PharmD Note: 01/20/24: Patient complaining of leg swelling- ?d/t famotidine? 12/02/23: Patient complaining of feeling tired/weak - ?d/t doxazosin. - This resolved as of 01/20/24 documented as of this encounter Procedures Procedure Name Priority Date/Time Associated Diagnosis Comments POCT GLUCOSE Routine 09/14/2025 9:54 AM EDT Type 2 diabetes mellitus with stage 3a chronic kidney disease, without long-term current use of insulin (HCC) documented in this encounter Results * POCT Glucose (09/14/2025 9:54 AM EDT) [facility] Glucose Blood, POC 134 60 - 200 mg/dL QC Media Lot # [id number] Lot# Expiration Date Blood Capillary blood specimen / Unknown 09/14/2025 9:54 AM EDT Andriy Hartman MD POINT OF CARE TEST ENTER/EDIT ORDERABLES Final Result documented in this encounter Visit Diagnoses Diagnosis Essential hypertension- Primary Unspecified essential hypertension Type 2 diabetes mellitus with stage 3a chronic kidney disease, without long-term current use of insulin (HCC) documented in this encounter Additional Health Concerns Assessment Noted Time PHQ-9 Depression Total Score: 3 08/19/20 25 9:50 AM EDT documented as of this encounter Care Teams Pass Worker Relationship Specialty Start Date End Date Andriy Scott MD [address] [place] [address] PCP - General Internal Medicine 04/05/20 documented as of this encounter
--- OUTSIDE RECORDS SUMMARY | 2025-09-16 10:38 | XMS_ITS | Clinical Summary ---
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 Shake gently. Before first use, prime pump. After use, clean tip and replace cap. 16 g 11 025 2025 Active sodium chloride ([place] Nasal [place]) 0.65 % nasal spray Administer 1 spray into each nostril if needed for congestion. 30 mL 12 025 2025 Active cetirizine (ZyrTEC) 10 MG tablet TAKE ONE TABLET EVERY NIGHT AT BEDTIME NEEDED 90 tablet 8 025 Active cholecalciferol (Vitamin D-3) 25 MCG tablet [...] morning. 90 tablet 3 025 2025 Active linaCLOtide (Linzess) 145 MCG capsule Take 1 capsule (145 mcg) by mouth before breakfast. Do not crush or chew. 30 capsule 11 025 2025 Active cyanocobalamin (Vitamin B-12) 1000 MCG tablet Take 1 tablet (1,000 mcg) by mouth Once per day. 90 tablet 3 025 2025 Active ferrous gluconate (Fergon) 324 (37.5 Fe) MG tablet TAKE ONE TABLET BY MOUTH EVERY OTHER DAY IN THE MORNING 60 tablet 1 Active Aspirin Low Dose 81 MG chewable tablet CHEW ONE TABLET EVERY MORNING 90 tablet 1 025 Active Calcium Carb-Cholecalcif jean 500-10 MG-MCG chewable tabletIndication s:Osteopenia of lumbar spine CHEW ONE TABLET EVERY MORNING 90 tablet 1 025 Active rosuvastatin (Crestor) 20 MG tabletIndication s:Mixed hyperlipidemia TAKE ONE TABLET EVERY NIGHT AT BEDTIME 90 tablet 1 025 Active spironolactone (Aldactone) 25 MG tabletIndication s:Primary hypertension Take 1 tablet (25 mg) by mouth Once per day. 30 tablet 3 Active glucose blood (FREESTYLE LITE) test stripIndications :Type 2 diabetes mellitus without complication, without long-term current use of insulin (HCC) USE TO TEST BLOOD SUGAR TWICE DAILY 100 strip 11 Active carvedilol (Coreg) 3.125 MG tablet Take 1 tablet (3.125 mg) by mouth with breakfast and with evening meal. 60 tablet 2 Active sucralfate (Carafate) 1 g tablet Take 1 tablet (1 g) by mouth 3 times daily. 90 tablet 11 025 2025 Active valsartan (Diovan) 160 MG tablet TAKE ONE TABLET IN THE MORNING AND EVENING 60 tablet 1 Active Multiple Vitamin (Multivitamin) tabletIndication s:Primary hypertension TAKE ONE TABLET EVERY MORNING 30 tablet 1 Active NIFEdipine XL (Procardia XL) 30 MG 24 hr tablet Take 1 tablet (30 mg) by mouth Once per day. Do not crush, chew, or split. 30 tablet 11 025 2025 Active Multiple Vitamin (Multivitamin) tabletIndication s:Primary hypertension TAKE ONE TABLET EVERY MORNING 30 tablet 8 025 2024 Discontinued fluticasone furoate (Arnuity Ellipta) 200 MCG/ACT inhaler Inhale 1 puff Once per day. Rinse mouth with water after use to reduce aftertaste and incidence of candidiasis. Do not swallow. 1 each 11 025 2024 Discontinued(T herapy completed) valsartan (Diovan) 80 MG tablet Take 2 tablets (160 mg) by mouth in the morning and 2 tablets (160 mg) in the evening. 120 tablet 1 025 2024 Discontinued(R eorder (will not trigger notification to Pharmacy)) valsartan (Diovan) 80 MG tabletIndication s:Essential hypertension Take 2 tablets (160 mg) by mouth in the morning and 2 tablets (160 mg) in the evening. 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 Assessment & Plan (08/25/2025 11:28 AM EDT): Patient will be evaluated by vascular surgery this week will remain aware Chronic idiopathic constipation 04/28/2025 Assessment & Plan (04/28/2025 3:33 PM EDT): Will prescribe linzess, encouraged to continue high fiber diet, call back if worsening Subclavian artery stenosis, left 02/15/2025 Nasal sore 12/08/2024 Assessment & Plan (12/08/2024 9:09 AM EST): Patient recently passed though covid infection, will prescribe saline nasal spray and mupirocin, call back if not improving Asthma 11/30/2024 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.] Coronary atherosclerosis 05/18/2015 Overview (07/09/2023): Followed by [facility] Cardiology Dr.Robert Ward Followed by [facility] Cardiology Dr.Robert Ward Assessment & [...] - Adult Primary Care Assessment & Plan (09/14/2025 11:03 AM EDT): Uncontrolled, asymptomatic, will add nifedipine 30mg, continue valsartan/spironolactone/carvedilol, keep low sodium diet and keep blood pressure log, follow up in 1 month Assessment & Plan (08/25/2025 11:26 AM EDT): Blood pressure much improved, continue low sodium diet, keep blood pressure log Assessment & Plan (08/10/2025 9:44 AM EDT): Blood pressure has remained stable, she still complains of weakness, reported HR in multiple occasions below 60, will decrease carvedilol to 3.125 mg bid, follow up in 1 week Assessment & Plan (04/28/2025 3:31 PM EDT): [...] Encounters Date Type Department Care Team Description 09/14/2025 9:30 AM EDT Office Visit [facility] [address] [place] [address] Andriy Scott MD Essential hypertension (Primary Dx); Type 2 diabetes mellitus with stage 3a chronic kidney disease, without long-term current use of insulin (HCC) 09/14/2025 Travel 09/13/2025 Telephone [facility] [address] [place] [address] Andriy Scott MD Chart Prep 09/10/2025 3:30 PM EDT Office Visit [facility] [address] [place] [address] Disha Riggs CNP Essential hypertension (Primary Dx) 09/10/2025 Travel 09/10/2025 Orders Only [facility] [address] [place] [address] Karen Lema MD 09/08/2025 Telephone [facility] [address] [place] [phone] Andriy Scott MD ER Follow-up 09/06/2025 Orders Only [facility] [address] [place] [phone] Karen Lema MD 09/06/2025 Refill [facility] [address] [place] [address] Andriy Scott MD Essential hypertension 09/03/2025 Telephone [facility] [address] [place] [phone] Andriy Scott MD Medication Question 09/02/2025 Refill [facility] [address] [place] [address] Andriy Scott MD Primary hypertension 08/31/2025 Telephone [facility] [address] [place] [phone] Andriy Scott MD Medication Question 08/19/2025 9:30 AM EDT Office Visit [facility] [address] [place] [address] Andriy Scott MD Essential hypertension (Primary Dx); Type 2 diabetes mellitus with stage 3a chronic kidney disease, without long-term current use of insulin ([facility]); Mesenteric artery stenosis (CMS/HCC) 08/19/2025 Travel 08/18/2025 Telephone [facility] [address] [place] [address] Andriy Scott MD chart prep 08/10/2025 8:30 AM EDT Telemedicine [facility] [address] [place] [address] Andriy Scott MD Essential hypertension (Primary Dx); Type 2 diabetes mellitus with stage 3a chronic kidney disease, without long-term current use of insulin ([facility]/HCC) 08/10/2025 Travel 08/09/2025 Telephone [facility] [address] [place] [address] Andriy Scott MD chart prep 08/05/2025 Orders Only [facility] [address] [place] [phone] Karen Lema MD 08/05/2025 Telephone [facility] [address] [place] [address] Andriy Scott MD ER Follow-up 08/04/2025 Orders Only [facility] [address] [place] [address] Karen Lema MD 08/03/2025 Telephone [facility] [address] [place] [address] Andriy Scott MD Medication Question 07/27/2025 Results Follow-Up [facility] [address] [place] [address] Disha Riggs CNP Culture, Urine, Routine 07/27/2025 Orders Only [facility] [address] [place] [address] Disha Riggs CNP UTI (urinary tract infection), uncomplicated (Primary Dx) 07/23/2025 Results Follow-Up [facility] [address] [place] [address] Disha Riggs CNP POCT glucose manually resulted, Vitamin B12/Folate, Serum Panel, Vitamin D, 25-Hydroxy, Total, Immunoassay, Additional followed-up results: 4 07/22/2025 10:30 AM EDT Telemedicine [facility] [address] [place] [address] Andriy Scott MD Weakness (Primary Dx) 07/22/2025 Orders Only [address] [address] Disha Riggs CNP 07/22/2025 Telephone [facility] [address] [place] [address] Andriy Scott MD Medication Question 07/22/2025 Travel 07/22/[address] [address] Andriy Scott MD Nurse Triage 07/21/2025 Telephone [facility] [address] [place] [address] Disha Riggs CNP Care Coordination 07/20/2025 2:45 PM EDT Office Visit [facility] [address] [place] [phone] Disha Riggs CNP Type 2 diabetes mellitus with stage 3a chronic kidney disease, without long-term current use of insulin ([facility]) (Primary Dx); Abnormal computed tomography angiography of head; Other fatigue; Primary hypertension 07/20/2025 Travel 07/19/2025 Orders Only [facility] [address] [place] [phone] Karen Lema MD 07/16/[address] [phone] Andriy Scott MD Increase of medication 07/13/2025 Refill [facility] [address], [place] [phone] Andriy Scott MD Type 2 diabetes mellitus without complication, without long-term current use of insulin ([facility]); Primary hypertension 07/12/2025 Telephone [facility] [address] [place], [place] [phone] Andriy Scott MD ER Follow-up 07/05/2025 Orders Only GENERIC EXTERNAL DATA DEPARTMENT Provider, Generic External Data 07/01/2025 3:30 PM EDT Office Visit [facility] [address], [place] [phone] Andriy Scott MD Type 2 diabetes mellitus with stage 3a chronic kidney disease, without long-term current use of insulin ([facility]); Primary hypertension 07/01/2025 Refill [facility] [address], [place] [phone] Andriy Scott MD Primary hypertension 07/01/2025 Travel from Last 3 Months Immunizations Immunization [...] housing situation today? I have adi wiggins 08/19/[address] you li [...] 16 09/14/2025 9:50 AM EDT Oxygen Saturation 96% 09/10/2025 3:41 PM EDT Inhaled Oxygen Concentration - - Weight 66.2 kg (146 lb) 09/14/2025 9:50 AM EDT Height 142.2 cm (4' 8 ) 09/14/2025 9:50 AM EDT Body Mass Index 32.73 09/14/2025 9:50 AM EDT Plan of Treatment Upcoming Encounters Date Type Department Care Team (Late st Contact Info) Description 09/21/2025 2:15 PM EDT Telemedicine [facility] [address] [place] [address] Andriy Scott MD [address] [place] [address] 09/27/2025 11:00 AM EST Clinical Support [facility] [address] [place] [address] 10/12/2025 10:45 AM EST Office Visit [facility] [address] [place] [address] Andriy Scott MD [address] [place] [address] Health Maintenance Due Date Last Done Comments Eye Exam 1955 Pneumococcal Vaccine: 50+ Years (1 of 2 - PCV) 1963 RSV Patients and Patients Aged 60 years or older (1 - 1-dose 75+ series) 2019 Dental Oral Exam 02/07/2024 08/08/2023, 01/2022, 01/03/2021, Additional history exists Dental Prophylaxis 02/07/2024 08/08/2023, 0 07/10/2022, 12/17/2019, Additional history exists Dental X-Ray: Bitewings 08/09/2024 08/08/20, 06/27/2022, 01/03/2021, Additional history exists Lipid Panel 01/10/2025 01/10/2024, 05/0 01/2023, 08/03/2022, Additional history exists COVID-19 Vaccine ( season) 2025 10/30/2021, 04/10/2021, 03/20/2021 Influenza Vaccine (#1) 2025 Diabetes: Foot Exam 12/29/2025 12/29/2024, 12/29/2024, 12/29/2024, Additional history exists Diabetes: Hemoglobin A1C 01/01/2026 025, 12/29/2024, 09/14/2024, Additional history exists Tobacco Screening 07/20/2026 07/20/2025 Dental X-Ray: Full Mouth 08/09/2026 08/08/2023, 02/24 Alcohol/Substance Use Screening 08/19/2026 08/19/2025 Depression Screening 08/19/2026 08/19/2025, 08/19/20 SDOH Screening 08/19/2026 08/19/2025 DTaP/Tdap/Td Vaccines (2 - Td or Tdap) [...] disease, without long-term current use of insulin ([facility]) ECG 12-LEAD Routine 09/08/2025 8:47 AM EDT ECG 12-LEAD Routine 09/08/2025 8:46 AM EDT ECG 12-LEAD Routine 09/05/2025 3:52 PM EDT XR CHEST 2 VIEWS Routine 09/05/2025 2:57 PM EDT POCT GLUCOSE Routine 08/19/2025 9:57 AM EDT Type 2 diabetes mellitus with stage 3a chronic kidney disease, without long-term current use of insulin ([facility]) ECG 12-LEAD Routine 08/04/2025 2:[address] HEAD WO CONTRAST Routine 08/04/2025 2 :06 PM EDT XR CHEST 1 VIEW Routine 08/04/2025 1:[address] ABDOMEN PELVIS W CONTRAST Routine 08/04/2025 12:46 PM EDT CULTURE, URINE, ROUTINE Routine 07/22/2025 6:44 PM EDT URINALYSIS, COMPLETE, WITH REFLEX TO CULTURE Routine 07/22/2025 2:20 PM EDT Other fatigue TSH W/REFLEX TO FT4 Routine 07/22/2025 2 :15 PM EDT Weakness CORTISOL RANDOM Routine 07/22/2025 2:15 PM EDT Other fatigue BASIC METABOLIC PANEL [...] disease, without long-term current use of insulin ([facility]) ECG 12-LEAD Routine 07/16/2025 1:44 PM EDT [...] to Health Maintenance Results * POCT Glucose (09/14/2025 9:54 AM EDT) Only the most recent of4 resultswithin the time period is included. Glucose Blood, POC 134 60 - 200 mg/dL QC Media Lot # [id number] Lot# Expiration Date , Blood Capillary blood specimen / Unknown 09/14/2025 9:54 AM EDT Andriy Hartman MD POINT OF CARE TEST ENTER/EDIT ORDERABLES Final Result * ECG 12 lead (09/08/2025 8:47 AM EDT) Only the most recent of5 resultswithin the time period is included. Result [facility] Historical Provider ECG ORDERABLES Final Res ult * XR Chest 2 Views (09/05/2025 2:57 PM EDT) Anatomical Region Laterality Modality Chest Radiographic Steph ging Result [facility] Provider IMG XR PROCEDURES Final R esult * CT Head w/o Contrast (08/04/2025 2:06 PM EDT) Anatomical Region Laterality Modality Head, Neck Computed Tomogra phy Result [facility] Provider IMG CT PROCEDURES Final R esult * XR Chest 1 View (08/04/2025 1:19 PM EDT) Anatomical Region Laterality Modality Chest Radiographic Steph ging Result [facility] Provider IMG XR PROCEDURES Final R esult * CT Abdomen Pelvis w/ Contrast (08/04/2025 12:46 PM EDT) Anatomical Region Laterality Modality Body, Pelvis, Abdomen Computed T omography Result [facility] Provider IMG CT PROCEDURES Final R esult * Culture, Urine, Routine (07/22/2025 6:44 PM EDT) Urine Urine specimen obtained by clean catch procedure / Unknown 07/22/2025 6:44 PM EDT 07/22/2025 6:44 PM EDT Comment:UACC Narrative [facility] - 07/24/2025 9:00 AM EDT Urine Culture Report Result Urine Culture 10,000 to 50,000 cfu/ml Urine Culture Mixed bacterial alcides characteristic of Urine Culture urogenital contamination. Specimen Source: Urine clean catch Result [facility] LAB MICROBIOLOGY - GENERA L ORDERABLES Final Result [facility] [address] [place] [phone] * (ABNORMAL) Urinalysis, Complete, with Reflex to Culture (07/22/2025 2:20 PM EDT) Color Urine Yellow [facility] Appearance Urine Clear [facility] PH 7.0 5.0 - 9.0 [facility] Glucose Urine UA Negative Negative mg/dL [facility] Urine Blood Negative Negative [facility] Specific [place] - Urine 1.010 1.005 - 1.025 [facility] Urine Protein Negative Neg-Trace mg/dL [facility] Urine Ketones Negative Negative mg/dL [facility] Nitrite Urine Negative Negative [facility] Leukocyte Esterase Urine Moderate (2+)(A) Negative [facility] RBC Urine 0-2 0 - 2 /HPF [facility] Urine WBC 0-5 0 - 5 /HPF [facility] Urine Squamous Epithelial Cell 0-2 0 - 2 /HPF [facility] Urine Bacteria None Seen None Seen [facility] Hyaline Casts, Urine 0-2 0 - 2 /LPF [facility] Urine 07/22/2025 2:20 PM EDT 07/22/2025 6:09 PM EDT Narrative [facility] - 07/22/2025 6:44 PM EDT [id number], Clean Catch [facility] LAB URINE ORDERABLES Lola l Result [facility] [address] [place] [phone] * Cortisol Random (07/22/2025 2:15 PM EDT) Cortisol Random 9.7 ug/dL [facility] Comment:Reference Range*: Be fore 10 am 6.2-19.4 ug/dL After 5 pm 2.3-11.9 ug/dL*Please interpret above results accordingly.This test was performed using the Quincee chemiluminescentmethod. Values obtained from different assay methods cannotbe used interchangeably.Patients receiving fludrocortisone, prednisolone orprednisone may show artificially elevated cortisol valuesdue to cross-reactivity. 07/22/2025 2:15 PM EDT 07/22/2025 5:27 PM EDT Disha Riggs [employer] LAB BLOOD ORDERABLES Lola l Result Performing Organization Address [facility] Co de Phone Number [facility] [address] [place] [address] [phone] * TSH W/Reflex to FT4 (07/22/2025 2:15 PM EDT) TSH reflex Free T4 2.81 0.32 - 4.0 uIU/mL [facility] Blood Venous blood specimen / Unknown 07/22/2025 2:15 PM EDT 07/22/2025 5:27 PM EDT Andriy Hartman MD LAB BLOOD ORDERABL ES Final Result Performing Organization Address [facility] Co de Phone Number [facility] [address] [place] [phone] [phone] * Vitamin D, 25-Hydroxy, Total, Immunoassay (07/20/2025 3:28 PM EDT) Vitamin D 25-OH Total 56.8 >30 ng/mL [facility] Comment: Health Based Reference Values*< 20 ng/mL [id number] ng/mL Insufficient> 30 ng/mL Sufficient*Ramírez IRAHETA. N [...] 3:28 PM EDT 07/20/2025 5:39 PM EDT [facility] LAB BLOOD ORDERABLES Lola l Result Performing Organization Address [facility] Co de Phone Number [facility] [address] [place] [phone] * (ABNORMAL) Vitamin B12/Folate, Serum Panel (07/20/2025 3:28 PM EDT) Vitamin B12 1,593(H) 200 - 900 pg/mL [facility] Comment:NORMAL 200-900 PG/ML INDETERMINATE 160-199 PG/ML DEFICIENT < 160 PG/ML Folate 7.6 > or = 4.0 ng/mL [facility] Comment:Reference Values:> o r = 4.0 ng/mL< 4.0 ng/mL suggests folate deficiency Methotrexate, aminopterin and folinic acid(leucovorin) are chemotherapeutic agents whose molecularstructures are similar to folate; therefore, the Architectfolate assay cannot be used for patients using these drugs. Blood Venous blood specimen / Unknown 07/20/2025 3:28 PM EDT 07/20/2025 5:39 PM EDT [facility] LAB BLOOD ORDERABLES Lola l Result Performing Organization Address [facility]/ZIP Co de Phone Number [facility] [address] [place] [phone] * Iron And Total Iron Binding Capacity (07/20/2025 3:28 PM EDT) Iron 69 30 - 160 mcg/dL [facility] Total Iron Binding Capacity 242 228 - 428 mcg/dL [facility] Percent Iron Saturation 29 15 - 50 % [facility] Unsaturated Iron Binding 173 ug/dL [facility] Blood Venous blood specimen / Unknown 07/20/2025 3:28 PM EDT 07/20/2025 5:39 PM EDT [facility] LAB BLOOD ORDERABLES Lola l Result Performing Organization Address [facility] Co de Phone Number [facility] [address] [place] [phone] [phone] * (ABNORMAL) Basic Metabolic Panel (07/20/2025 3:28 PM EDT) Sodium 142 135 - 145 mmol/L [facility] Potassium 5.0 3.3 - 5.1 mmol/L [facility] Chloride 106 96 - 108 mmol/L [facility] Carbon Dioxide 28 22 - 29 mmol/L [facility] Anion Gap 13 12 - 20 [facility] Urea Nitrogen (BUN) 22(H) 9 - 16 mg/dL [facility] Creatinine, Serum 1.08 0.5 - 1.4 mg/dL [facility] Estimated Glomerular Filt Rate 49 [facility] Comment:Chronic Kidney Disea se: Estimated GFR < 60 mL/min/[id number] Kidney Disease: Estimated GFR < 15 mL/min/1.73m2 Glucose 96 60 - 115 mg/dL [facility] Calcium 9.9 8.4 - 10.2 mg/dL [facility] Blood Venous blood specimen / Unknown 07/20/2025 3:28 PM EDT 07/20/2025 5:39 PM EDT [facility] LAB BLOOD ORDERABLES Lola l Result Performing Organization Address [facility]/ZIP Co de Phone Number [facility] [address] [place] [phone] * (ABNORMAL) Protein Creatinine Ratio, Urine (07/05/2025 2:10 PM EDT) Protein, Total, Random Urine 13(H) <12 mg/dL [facility] Protein/Creatin ine Ratio, Ur 0.09 <0.2 [facility] Comment:The spot urine prote in:creatinine ratio may increase to 0.3during normal . 07/05/2025 2:10 PM EDT 07/05/2025 5:27 PM EDT Generic External Data Provider LAB URINE ORDERAB LES Final Result Performing Organization Address [facility] Co de Phone Number [facility] [address] [place] [address] [phone] * Albumin, Random Urine W/Creatinine (07/05/2025 2:10 PM EDT) Creatinine, Urine 145.70 mg/dL [facility] Microalbumin Urine 28.0 mg/L [facility] Microalbum Creatinine Ratio Ur 19.2 <30 ug/mg cr [facility] Comment:Albumin/Creatinine R atio Reference Ranges: Normal: < 30 ug/mg creatinine Microalbuminuria: 30 - 300 ug/mg creatinineClinical Albuminuria: > 300 ug/mg creatinine 07/05/2025 2:10 PM EDT 07/05/2025 5:27 PM EDT Generic External Data Provider LAB URINE ORDERAB LES Final Result Performing Organization Address [facility] Co de Phone Number [facility] [address] [place] [phone] * Creatinine, Serum (07/05/2025 2:03 PM EDT) Creatinine, Serum 0.89 0.5 - 1.4 mg/dL [facility] Estimated Glomerular Filt Rate >60 [facility] Comment:Chronic Kidney Disea se: Estimated GFR < 60 mL/min/[id number] Kidney Disease: Estimated GFR < 15 mL/min/1.73m2 07/05/2025 2:03 PM EDT 07/05/2025 5:28 PM EDT us Generic External Data Provider LAB BLOOD ORDERAB LES Final Result [facility] [address] [place], [place] [phone] * (ABNORMAL) CBC auto differential (07/05/2025 2:03 PM EDT) White Blood Count 6.7 4.8 - 10.8 X10*3/uL [facility] Red Blood Count 3.99(L) 4.20 - 5.50 X10*6/uL [facility] Hemoglobin 11.1(L) 12.0 - 16.0 g/dl [facility] Hematocrit 34.7(L) 37.0 - 47.0 % [facility] Mean Corpuscular Volume 87.0 80.0 - 98.0 fL [facility] Mean Corpuscular Hemoglobin 27.8 27.0 - 33.0 pg [facility] Mean Corpuscular HGB Conc 32.0 31.0 - 35.0 g/dl [facility] Red Cell Distribution Width 14.0 11.0 - 16.0 % [facility] Platelet Count 302 160 - 400 X10*3/uL [facility] Mean Platelet Volume 9.9 9.4 - 12.3 fL [facility] Neutrophils Percent Auto 56.7 45 - 73 % [facility] Imm Gran Pct Auto 0.3 0.0 - 0.4 % [facility] Lymphocytes Percent Auto 30.1 20 - 40 % [facility] Monocytes Percent Auto 6.7 2 - 11 % [facility] Eosinophils Percent Auto 5.8(H) 0 - 4 % [facility] Basophils Percent Auto 0.4 0 - 2 % [facility] NRBC Pct Auto 0.0 0.0 - 0.2 /100WBC [facility] Neutrophils Absolute Auto 3.8 2.0 - 8.3 x10*3/uL [facility] Imm Gran Abs Auto 0.02 0.00 - 0.03 X10*3/uL [facility] Lymphocytes Absolute Auto 2.0 1.2 - 4.9 X10*3/uL [facility] Monocytes Absolute Auto 0.5 0.1 - 1.2 X10*3/uL [facility] Eosinophils Absolute Auto 0.4 0.0 - 0.4 X10*3/uL [facility] Basophils Absolute Auto 0.0 0.0 - 0.2 X10*3/uL [facility] NRBC Abs Auto 0.000 0.0 - 0.012 X10*3/uL [facility] 07/05/2025 2:0 3 PM EDT 07/05/2025 5:28 PM EDT Generic External Data Provider LAB BLOOD ORDERAB LES Final Result Performing Organization Address City/[facility]/ZIP Co de Phone Number [facility] [address] [place] [phone] * (ABNORMAL) BUN (Blood Urea Nitrogen) (07/05/2025 2:03 PM EDT) Urea Nitrogen (BUN) 22(H) 9 - 16 mg/dL [facility] 07/05/2025 2:03 PM EDT 07/05/2025 5:28 PM EDT [employer] External Data Provider LAB BLOOD ORDERAB LES Final Result Performing Organization Address [facility]/ZIP Co de Phone Number [facility] [address] [place] [address] [phone] * (ABNORMAL) PTH, Intact Without Calcium (07/05/2025 2:03 PM EDT) Parathyroid Hormone, Intact 83.8(H) 8.7 - 77.1 pg/mL [facility] 07/05/2025 2:03 PM EDT 07/05/2025 5:28 PM EDT Generic External Data Provider LAB BLOOD ORDERAB LES Final Result Performing Organization Address [facility] Co de Phone Number [facility] [address] [place] [phone] * Calcium (07/05/2025 2:03 PM EDT) Calcium 9.7 8.4 - 10.2 mg/dL [facility] 07/05/2025 2:03 PM EDT 07/05/2025 5:28 PM EDT Generic External Data Provider LAB BLOOD ORDERAB LES Final Result Performing Organization Address [facility] Phone Number [facility] [address] [place] [phone] * (ABNORMAL) Electrolyte Panel (07/05/2025 2:03 PM EDT) Pathologist [facility] Sodium 145 135 - 145 mmol/L [facility] Potassium 4.8 3.3 - 5.1 mmol/L [facility] Chloride 108 96 - 108 mmol/L [facility] Carbon Dioxide 32(H) 22 - 29 mmol/L [facility] Anion Gap 10(L) 12 - 20 [facility] 07/05/2025 2:03 PM EDT 07/05/2025 5:28 PM EDT Generic External Data Provider LAB BLOOD ORDERAB LES Final Result Performing Organization Address [facility] Co de Phone Number [facility] [address] [place] [phone] * POCT HGB A1C (07/01/2025 3:37 PM EDT) Hemoglobin A1C 5.7 4.0 - 5.7 % QC Media Lot # [id number] Lot# Expiration Date Blood 07/01/2025 3:37 PM EDT Andriy Hartman MD POINT OF CARE TEST ENTER/EDIT ORDERABLES Final Result * Lipid Panel, Standard (01/10/2024 8:24 AM EST) Triglycerides 76 <150 mg/dL [facility] Comment:Desirable Triglyceri de: less than 150 mg/dLBorderline High Triglyceride 150-199 mg/dLHigh Triglyceride: 200-499 mg/dLVery High Triglyceride: greater than or equal to 5OO mg/dL Cholesterol 125 <200 mg/dL [facility] Comment:Desirable Cholestero l: less than 200 mg/dLBorderline High Cholesterol: 200-239 mg/dLHigh Cholesterol: greater than 239 mg/dL LDL Cholesterol Calculated 63 <100 mg/dL [facility] Comment:Desirable LDL: less than 100 mg/dLNear Optimal/Above Optimal LDL: 110- 129 mg/dLBorderline High LDL: 130-159 mg/dLHigh LDL: 160-189 mg/dLVery High LDL: greater than or equal to 190 mg/dL HDL Cholesterol 47 >40 mg/dL [facility] Comment:Desirable HDL: great er than 40 mg/dL Note: This HDL assay may give artificially low results in patients with liver disease. Blood Venous blood specimen / Unknown 01/10/2024 8:24 AM EST 01/10/2024 12:30 PM EST Andriy Hartman MD LAB BLOOD ORDERABL ES Final Result [facility] [address] [place], [place] [phone] from Last 3 Months or Most Recently Relevant to Health Maintenance Insurance [employer] (HMO D-SNP) Care Teams Spinning Mule Tender Relationship Specialty Start Date End Date Andriy Scott MD [address] [place] [phone] PCP - General Internal Medicine 04/05/20
--- OUTSIDE RECORDS SUMMARY | 2025-09-16 10:38 | XMS_ITS | Encounter Summary ---
Author Organization [employer] Address [address] [facility] [address] [address] Care Team Providers Care Hardboard Panel Printer Name Role Phone Andriy Scott MD Primary Care Prov ider Encounter Details Date Type Department Care Team (Latest Contact Info) Description 06/15/2019 Abstract [facility] CONVERSIONS Dental, Provider, DDS Social History [...] Upcoming Encounters Date Type Department Care Team ( st Contact Info) Description 09/21/2025 2:15 PM EDT Telemedicine [facility] [address] [place] [address] Andriy Scott MD [address] [place] [address] 09/27/2025 11:00 AM EST Clinical Support [facility] [address] [place] [address] 10/12/2025 10:45 AM EST Office Visit [facility] [address] [place] [address] Andriy Scott MD [address] [place] [address] documented as of this encounter Visit Diagnoses Not on filedocumented in this encounter Care Teams Hardboard Panel Printer Relationship Specialty Start Date End Date Andriy Scott MD [address] [place] [phone] PCP - General Internal Medicine 04/05/20 documented as of this encounter
--- OUTSIDE RECORDS SUMMARY | 2025-09-16 10:38 | XMS_ITS | Encounter Summary ---
Author Organization [employer] Address 75 [facility] 7[address] [place] [address] Care Team Providers Care Warehouse Logistics Manager Name Role Phone Andriy Scott MD Primary Care Prov ider Encounter Details Date Type Department Care Team (Latest Contact Info) Description 09/14/2025 Travel Social History Tobacco Use Types Packs/Day [...] Info) Description 09/21/2025 2:15 PM EDT Telemedicine [facility] [address] [place] [address] Andriy Scott MD [address] [place] [address] 09/27/2025 11:00 AM EST Clinical Support [facility] [address] [place] [address] 10/12/2025 10:45 AM EST Office Visit [facility] [address] [place] [address] Andriy Scott MD [address] [place] [address] documented as of this encounter Goals Goal [...] documented as of this encounter Care Teams Warehouse Logistics Manager Relationship Specialty Start Date End Date Andriy Scott MD [address] [place] [address] PCP - General Internal Medicine 04/05/20 documented as of this encounter
--- OUTSIDE RECORDS SUMMARY | 2025-09-16 10:38 | XMS_ITS | Encounter Summary ---
Author Organization [employer] Address 75 [facility] 7[place] [address] Care Team Providers Care Customer Business Manager Name Role Phone Andriy Scott MD Primary Care Prov ider Encounter Details Date Type Department Care Team (Latest Contact Info) Description 06/27/2022 Abstract [facility] CONVERSIONS Dental, Provider, DDS Social History [...] Upcoming Encounters Date Type Department Care Team ([facility] Contact Info) Description 09/21/2025 2:15 PM EDT Telemedicine [facility] [address] [place] [address] Andriy Scott MD 505 [place] [address] 09/27/2025 11:00 AM EST Clinical Support [facility] [address] [place] [address] 10/12/2025 10:45 AM EST Office Visit [facility] [address] [place] [address] Andriy Scott MD [address] [place] [address] documented as of this encounter Visit Diagnoses Not on filedocumented in this encounter Care Teams Customer Business Manager Relationship Specialty Start Date End Date Andriy Scott MD [address] [place] [address] PCP - General Internal Medicine 04/05/20 documented as of this encounter
--- OUTSIDE RECORDS SUMMARY | 2025-09-16 10:38 | XMS_ITS | Encounter Summary ---
Author Organization [employer] Address 75 [facility] 7t [place] [address] Care Team Providers Care Asbestos Worker Helper Name Role Phone Andriy Scott MD Primary Care Prov ider Encounter Details Date Type Department Care Team ([facility] Contact Info) Description 12/23/2024 Orders Only [facility] [address] [place], [place] [phone] ProviderKaren MD Social History Tobacco Use Types [...] Info) Description 09/21/2025 2:15 PM EDT Telemedicine [facility] [address] [place] [address] Andriy Scott MD 505 [place] [address] 09/27/2025 11:00 AM EST Clinical Support [facility] [address] [place] [address] 10/12/2025 10:45 AM EST Office Visit [facility] [address] [place] [address] Andriy Scott MD [address] [place] [address] documented as of this encounter Goals Goal [...] documented as of this encounter Care Teams Asbestos Worker Helper Relationship Specialty Start Date End Date Andriy Scott MD [address] [place] [address] PCP - General Internal Medicine 04/05/20 documented as of this encounter
--- OUTSIDE RECORDS SUMMARY | 2025-09-16 10:38 | XMS_ITS | Encounter Summary ---
Author Organization [employer] Address 75 [facility] [address], [place] [address] Care Team Providers Care Nsh Teacher Name Role Phone Andriy Scott MD Primary Care Prov ider Encounter Details Date Type Department Care Team ([facility] Contact Info) Description 11/23/2022 Telephone [facility] [address] [place] [address] Andriy Scott MD [address] [place] [address] Social History Tobacco Use Types Packs/Day Years [...] Upcoming Encounters Date Type Department Care Team ([facility] Contact Info) Description 09/21/2025 2:15 PM EDT Telemedicine [facility] [address] [place] [address] Andriy Scott MD [address] [place] [address] 09/27/2025 11:00 AM EST Clinical Support [facility] [address] [place] [address] 10/12/2025 10:45 AM EST Office Visit [facility] PEDS [address] [place] [address] Andriy Scott MD [address] [place] [address] documented as of this encounter Visit Diagnoses Not on filedocumented in this encounter Care Teams Nsh Teacher Relationship Specialty Start Date End Date Andriy Scott MD [address] [place] [address] PCP - General Internal Medicine 04/05/20 documented as of this encounter
--- OUTSIDE RECORDS SUMMARY | 2025-09-16 10:38 | XMS_ITS | Encounter Summary ---
Author Organization [employer] Address [address] [facility] [address] [address] Care Team Providers Care Senior Training And Development Rep Name Role Phone Andriy Scott MD Primary Care Prov ider Encounter Details Date Type Department Care Team ([facility] Contact Info) Description 03/25/2023 Orders Only [facility] [address] [place] [address] Joann Patrick LPN Social History Tobacco Use [...] Upcoming Encounters Date Type Department Care Team ([facility] Contact Info) Description 09/21/2025 2:15 PM EDT Telemedicine [facility] [address] [place] [address] Andriy Scott MD [address] [place] [address] 09/27/2025 11:00 AM EST Clinical Support [facility] [address] [place] [address] 10/12/2025 10:45 AM EST Office Visit [facility] [address] [place] [address] Andriy Scott MD [address] [place] [address] documented as of this encounter Visit Diagnoses Not on filedocumented in this encounter Additional Health Concerns Assessment Noted Time PHQ-9 Depression Total Score: 0 02/22/20 23 1:22 PM EDT documented as of this encounter Care Teams Senior Training And Development Rep Relationship Specialty Start Date End Date Andriy Scott MD [address] [place] [address] PCP - General Internal Medicine 04/05/20 documented as of this encounter
--- OUTSIDE RECORDS SUMMARY | 2025-09-16 10:38 | XMS_ITS | Encounter Summary ---
Author Organization [employer] Address 75 [facility] 7[place] [address] Care Team Providers Care Nuisance Wildlife Trapper Name Role Phone Andriy Scott MD Primary Care Prov ider Reason for Visit * Reason Onset Date Comments Call Back Request 02/15/2025 Encounter Details Date Type Department Care Team ([facility] Contact Info) Description 02/15/2025 Telephone [facility] [address] [place] [address] Andriy Scott MD [address] [place] [address] Call Back Request Social History Tobacco Use [...] to confirm the Appt. Contact pt at [phone] documented in this encounter Plan of Treatment Upcoming Encounters Date Type Department Care Team (Late st Contact Info) Description 09/21/2025 2:15 PM EDT Telemedicine [facility] [address] [place] [address] Andriy Scott MD [address] [place] [address] 09/27/2025 11:00 AM EST Clinical Support [facility] [address] [place] [address] 10/12/2025 10:45 AM EST Office Visit [facility] [address] [place] [address] Andriy Scott MD [address] [place] [address] documented as of this encounter Goals Goal [...] documented as of this encounter Care Teams Nuisance Wildlife Trapper Relationship Specialty Start Date End Date WinklerAndriy Gonzalez MD [address] [place] [address] PCP - General Internal Medicine 04/05/20 documented as of this encounter
--- OUTSIDE RECORDS SUMMARY | 2025-09-16 10:38 | XMS_ITS | Encounter Summary ---
Author Organization [employer] Address 75 [facility] 7t [place] [address] Care Team Providers Care Construction Worker Name Role Phone Andriy Scott MD Primary Care Prov ider Encounter Details Date Type Department Care Team ([facility] st Contact Info) Description 03/05/2024 Orders Only [facility] MED & PEDS [address] [place], [place] [phone] Andriy Scott MD [address] [place] [address] Type 2 diabetes mellitus with stage 3a chronic kidney disease, without long-term current use of insulin ([facility] Social History Tobacco Use Types Packs/Day Years [...] Info) Description 09/21/2025 2:15 PM EDT Telemedicine [facility] [address] [place] [address] Andriy Scott MD [address] [place] [address] 09/27/2025 11:00 AM EST Clinical Support [facility] [address] [place] [address] 10/12/2025 10:45 AM EST Office Visit [facility] [address] [place] [address] Andriy Scott MD [address] [place] [address] documented as of this encounter Goals Goal [...] documented as of this encounter Care Teams Construction Worker Relationship Specialty Start Date End Date Andriy Scott MD [address] [place] [address] PCP - General Internal Medicine 04/05/20 documented as of this encounter
--- OUTSIDE RECORDS SUMMARY | 2025-09-16 10:38 | XMS_ITS | Encounter Summary ---
Author Organization [employer] Address 75 [facility] 7[place] [address] Care Team Providers Care Cattle Care Worker Name Role Phone Andriy Scott MD Primary Care Prov ider Encounter Details Date Type Department Care Team (Latest Contact Info) Description 01/03/2021 Abstract [facility] CONVERSIONS Dental, Provider, DDS Social History [...] Upcoming Encounters Date Type Department Care Team ([facility] Contact Info) Description 09/21/2025 2:15 PM EDT Telemedicine [facility] MED [facility] PEDS [address] [place] [address] Andriy Scott MD 505 [place] [address] 09/27/2025 11:00 AM EST Clinical Support [facility] [address] [place] [address] 10/12/2025 10:45 AM EST Office Visit [facility] [address] [place] [address] Andriy Scott MD [address] [place] [address] documented as of this encounter Visit Diagnoses Not on filedocumented in this encounter Care Teams Cattle Care Worker Relationship Specialty Start Date End Date Andriy Scott MD [address] [place] [address] PCP - General Internal Medicine 04/05/20 documented as of this encounter
--- OUTSIDE RECORDS SUMMARY | 2025-09-16 10:38 | XMS_ITS | Encounter Summary ---
Author Organization [facility] Address [address] [place] [address] Care Team Providers Care Traveling Missionary Name Role Phone Andriy Scott Primary Care Provide r Reason for Visit * Reason Onset Date Comments outside provider call back 08/18/2025 Encounter Details Date Type Department Care Team ([facility] st Contact Info) Description 08/18/2025 Telephone Gastroenterology - [place] [address] [facility] [address] [place] [address] Shannon Ceron PA [address] [place] [address] Social History Tobacco Use Types Packs/Day Years [...] PM EST documented as of this encounter Functional Status * Are you deaf or do you have serious difficulty hearing? Answer Date of Assessment Author No 08/04/2025 6:02 AM Mely Wilson RN * Are you blind or do you have serious difficulty seeing, even when wearing glasses? Answer Date of Assessment Author No 08/04/2025 6:02 AM Mely Wilson RN * Do you have serious difficulty walking or climbing stairs? Answer Date of Assessment Author Yes 08/04/2025 6:02 AM EDT Mely Rodríguez RN * Do you have serious difficulty dressing or bathing? Answer Date of Assessment Author Yes 08/04/2025 6:02 AM EDT Mely Rodríguez RN * Because of a physical, mental, or emotional condition, do you have serious difficulty doing errandsalone such as visiting the doctor? Answer Date of Assessment Author Yes 08/04/2025 6:02 AM EDT Mely Rodríguez RN documented as of this encounter Mental Status * Because of a physical, mental, or emotional condition, do you have serious difficulty concentrating, remembering, or making decisions? (5 years old or older) Answer Entry Date Author Yes 08/04/2025 6:02 AM EDT Mely Rodríguez RN documented in this encounter Progress Notes * MATEUS Singh - 08/18/2025 4:26 PM EDT Yes, I am well aware of that. She sent me a secure chat via [employer]. I did call her back but it goes straight to [employer] so I left her message to call me back. TY * Mela Staples - 08/18/2025 3:[address] Martin Platt called from [facility] to speak to Katie directly asked to call documented in this encounter Plan of Treatment Upcoming Encounters Date Type Department Care Team (Late st Contact Info) Description 09/20/2025 3:00 PM EDT Office Visit Vascular Surgery - [place] [address] [place] [address] Gilda Hernandez PA 299 [facility] [address] [place] [address] 10/26/2025 2:40 PM EST Office Visit Gastroenterology - 299 [facility] 299 [facility] [address] [place] [phone] Shannon Ceron PA 175 [facility] [address] [place] [address] 2025 1:45 PM EST Office Visit Orthopedic Surgery - [place] [address] [facility] [address] [place] [phone] Phan Avalos DPM 175 [facility] [address] [place] [address] 12/24/2025 9:10 AM EST Office Visit [facility] - [facility] [address] [facility] [address] [place] [phone] Mary Jett NP 300 [facility] [address] [place] [address] documented as of this encounter Visit Diagnoses Not on filedocumented in this encounter Care Teams Traveling Missionary Relationship Specialty Start Date End Date Andriy Scott [address] [place], [place] PCP - General Internal Medicine 12/15/20 documented as of this encounter
--- OUTSIDE RECORDS SUMMARY | 2025-09-16 10:38 | XMS_ITS | Encounter Summary ---
Author Organization [employer] Address 75 [facility] [address] [address] Care Team Providers Care Orthopedic Coder Name Role Phone Andriy Scott MD Primary Care Prov ider Encounter Details Date Type Department Care Team ([facility] Contact Info) Description 04/09/2023 Orders Only [facility] [address] [place] [address] Joann Patrick LPN Social History Tobacco Use [...] Upcoming Encounters Date Type Department Care Team ([facility] Contact Info) Description 09/21/2025 2:15 PM EDT Telemedicine [facility] [address] [place] [address] Andriy Scott MD [address] [place] [address] 09/27/2025 11:00 AM EST Clinical Support [facility] [address] [place] [address] 10/12/2025 10:45 AM EST Office Visit [facility] [address] [place] [address] Andriy Scott MD [address] [place] [address] documented as of this encounter Visit Diagnoses Not on filedocumented in this encounter Additional Health Concerns Assessment Noted Time PHQ-9 Depression Total Score: 0 02/22/20 23 1:22 PM EDT documented as of this encounter Care Teams Orthopedic Coder Relationship Specialty Start Date End Date Andriy Scott MD [address] [place] [address] PCP - General Internal Medicine 04/05/20 documented as of this encounter
--- OUTSIDE RECORDS SUMMARY | 2025-09-16 10:38 | XMS_ITS | Encounter Summary ---
Author Organization [employer] Address [address] [facility] 7[address] [place] [address] Care Team Providers Care Grades 1 Through 5 Teacher Name Role Phone Andriy Scott MD Primary Care Prov ider Reason for Visit * Reason Onset Date Comments Nurse Triage 12/07/2024 Encounter Details Date Type Department Care Team ([facility] st Contact Info) Description 12/07/2024 Telephone [facility] CHC MED & PEDS [address] [place] [address] Andriy Scott MD 505 [place] [address] Nurse Triage Social History Tobacco Use Types [...] 12/07/2024 10:37 AM EST Triage call [place] [employer] [place] [id number], unable to continue due to seismic interpreter having computer problem. Ended call. Triage [place] [id number], Jacki. Pt reports having Covid 11/28/24 and [...] ASK apt with PCP 12/08/24 @ 830am. Pt agrees with disposition. Insurance is verified as active [...] Info) Description 09/21/2025 2:15 PM EDT Telemedicine [facility] MED & PEDS [address] [place] [address] Andriy Scott MD [address] [place] [address] 09/27/2025 11:00 AM EST Clinical Support [facility] MED & PEDS [address] [place] [address] 10/12/2025 10:45 AM EST Office Visit [facility] MED & PEDS [address] [place] [address] Andryi Scott MD [address] [place] [address] documented as of this encounter Goals Goal [...] documented as of this encounter Care Teams Grades 1 Through 5 Teacher Relationship Specialty Start Date End Date Andriy Scott MD [address] [place] [address] PCP - General Internal Medicine 04/05/20 documented as of this encounter
--- OUTSIDE RECORDS SUMMARY | 2025-09-16 10:38 | XMS_ITS | Encounter Summary ---
Author Organization [employer] Address [address] [facility] 7t [place] [address] Care Team Providers Care Superintendent Plant Protection Name Role Phone Andriy Scott MD Primary Care Prov ider Encounter Details Date Type Department Care Team ([facility] Contact Info) Description 04/06/2024 Orders Only [facility] CHC MED & PEDS [address] [place], [place] [phone] Andriy Scott MD [address] [place] [address] Social History Tobacco Use Types Packs/Day Years [...] Upcoming Encounters Date Type Department Care Team ([facility] st Contact Info) Description 09/21/2025 2:15 PM EDT Telemedicine [facility] MED & PEDS [address] [place] [address] Andriy Scott MD [address] [place] [address] 09/27/2025 11:00 AM EST Clinical Support [facility] MED & PEDS [address] [place] [address] 10/12/2025 10:45 AM EST Office Visit [facility] MED & PEDS [address] [place] [address] Andriy Scott MD [address] [place] [address] documented as of this encounter Goals Goal [...] documented as of this encounter Care Teams Superintendent Plant Protection Relationship Specialty Start Date End Date Andriy Scott MD [address] [place] [address] PCP - General Internal Medicine 04/05/20 documented as of this encounter
--- OUTSIDE RECORDS SUMMARY | 2025-09-16 10:38 | XMS_ITS | Encounter Summary ---
Author Organization [employer] Address 75 [facility] 7 [place] [address] Care Team Providers Care Rubber Goods Cutter Finisher Name Role Phone Andriy Scott MD Primary Care Prov ider Reason for Visit * Reason Onset Date Comments Chart Prep 09/13/2025 Encounter Details Date Type Department Care Team ([facility] Contact Info) Description 09/13/2025 Telephone [facility] CHC MED & PEDS 505 [place] [address] Andriy Scott MD 505 [place] [address] Chart Prep Social History Tobacco Use Types Packs/Day Years [...] housing situation today? I have adi sing 08/19/[address] you li [...] encounter Miscellaneous Notes * Telephone Encounter - Dana Walker [place] - 09/13/2025 11:37 AM EDT Chart Prep Labs: not applicable Images: not applicable Referrals: appointment pending Vaccines due: Covid, Flu, PCV20, and RSV Screenings: eye exam Overdue care gaps: Glucose and Oral health screening documented in this encounter Plan of Treatment Upcoming Encounters Date Type Department Care Team ([facility] st Contact Info) Description 09/21/2025 2:15 PM EDT Telemedicine [facility] MED & PEDS [address] [place] [address] Andriy Scott MD [address] [place] [address] 09/27/2025 11:00 AM EST Clinical Support [facility] MED & PEDS [address] [place] [address] 10/12/2025 10:45 AM EST Office Visit [facility] MED & PEDS [address] [place] [address] Andriy Scott MD 505 [place] [address] documented as of this encounter Goals Goal [...] documented as of this encounter Care Teams Rubber Goods Cutter Finisher Relationship Specialty Start Date End Date Andriy Scott MD [address] [place] [address] PCP - General Internal Medicine 04/05/20 documented as of this encounter
--- OUTSIDE RECORDS SUMMARY | 2025-09-16 10:38 | XMS_ITS | Encounter Summary ---
Author Organization [employer] Address [address] [facility] 7[address] [place] [address] Care Team Providers Care Vice President Marketing & Development Name Role Phone Andriy Scott MD Primary Care Prov ider Encounter Details Date Type Department Care Team (Late Contact Info) Description 12/18/2022 Orders Only [facility] [address] [place], [place] [phone] Andriy Scott MD [address] [place] [address] Non-seasonal allergic rhinitis due to fungal spores [...] Department Care Team (Late Contact Info) Description 09/21/2025 2:15 PM EDT Telemedicine [facility] MED & PEDS [address] [place], [place] [phone] Andriy Scott MD [address] [place] [address] 09/27/2025 11:00 AM EST Clinical Support [facility] MED & PEDS [address] [place] [address] 10/12/2025 10:45 AM EST Office Visit [facility] MED & PEDS [address] [place] [address] Andriy cSott MD [address] [place] [address] documented as of this encounter Visit Diagnoses Diagnosis Non-seasonal allergic rhinitis due to fungal spores- Primary documented in this encounter Care Teams Vice President Marketing & Development Relationship Specialty Start Date End Date Andriy Scott MD 505 [place] [address] PCP - General Internal Medicine 04/05/20 documented as of this encounter
--- OUTSIDE RECORDS SUMMARY | 2025-09-16 10:38 | XMS_ITS | Encounter Summary ---
Author Organization [employer] Address [address] [facility] 7t [place] [address] Care Team Providers Care Stevedoring Supervisor Name Role Phone Andriy Scott MD Primary Care Prov ider Reason for Visit * Reason Comments Med Refill Encounter Details Date Type Department Care Team ([facility] Contact Info) Description 05/17/2024 Refill [facility] CHC MED & PEDS [address] [place], [place] [phone] Andriy Scott MD 505 [place] [address] Type 2 diabetes mellitus with stage 3a chronic kidney disease, without long-term current use of insulin ([facility]) Social History Tobacco Use Types [...] Telemedicine [facility] MED & PEDS [address] [place] [address] Andriy Scott MD [address] [place] [address] 09/27/2025 11:00 AM EST Clinical Support [facility] MED & PEDS [address] [place] [address] 10/12/2025 10:45 AM EST Office Visit [facility] MED & PEDS [address] [place] [address] Andriy Scott MD 505 [place] [address] documented as of this encounter Goals Goal [...] documented as of this encounter Care Teams Stevedoring Supervisor Relationship Specialty Start Date End Date Andriy Scott MD [address] [place] [address] PCP - General Internal Medicine 04/05/20 documented as of this encounter
--- OUTSIDE RECORDS SUMMARY | 2025-09-16 10:38 | XMS_ITS | Encounter Summary ---
Author Organization [employer] Address [address] [facility] [address], [place] [address] Care Team Providers Care Fisher Spear Name Role Phone Andriy Scott MD Primary Care Prov ider Encounter Details Date Type Department Care Team ([facility] Contact Info) Description 12/07/2022 Orders Only [facility] MED & PEDS [address] [place] [address] Tyra Anand LPN Social History Tobacco Use [...] Upcoming Encounters Date Type Department Care Team ([facility] Contact Info) Description 09/21/2025 2:15 PM EDT Telemedicine [facility] CHC MED & PEDS [address] [place] [address] Andriy Scott MD 505 [place] [address] 09/27/2025 11:00 AM EST Clinical Support [facility] MED & PEDS [address] [place] [address] 10/12/2025 10:45 AM EST Office Visit [facility] MED & PEDS [address] [place] [address] Andriy Scott MD 505 [place] [address] documented as of this encounter Visit Diagnoses Not on filedocumented in this encounter Care Teams Fisher Spear Relationship Specialty Start Date End Date Andriy Scott MD [address] [place] [address] PCP - General Internal Medicine 04/05/20 documented as of this encounter
--- OUTSIDE RECORDS SUMMARY | 2025-09-16 10:39 | XMS_ITS | Encounter Summary ---
Author Organization [employer] Address [address] [facility] 7t [place] [address] Care Team Providers Care Financial Compliance Manager Name Role Phone Andriy Scott MD Primary Care Prov ider Encounter Details Date Type Department Care Team ([facility] st Contact Info) Description 09/10/2025 Orders Only [facility] CHC MED & PEDS [address] [place], [place] [phone] ProviderKaren MD Social History Tobacco Use Types [...] Upcoming Encounters Date Type Department Care Team ([facility] st Contact Info) Description 09/21/2025 2:15 PM EDT Telemedicine [facility] MED & PEDS 505 [place] [address] Andriy Scott MD 505 [place] [address] 09/27/2025 11:00 AM EST Clinical Support [facility] MED & PEDS [address] [place] [address] 10/12/2025 10:45 AM EST Office Visit [facility] MED & PEDS [address] [place] [address] Andriy Scott MD 505 [place] [address] documented as of this encounter Goals Goal [...] Date/Time Associated Diagnosis Comments ECG 12-LEAD Routine 09/08/2025 8:47 AM EDT ECG 12-LEAD Routine 09/08/2025 8:46 AM EDT documented in this encounter Results * ECG 12 lead (09/08/2025 8:47 AM EDT) us Historical Provider ECG ORDERABLES Final Res ult * ECG 12 lead (09/08/2025 8:46 AM EDT) us Historical Provider ECG ORDERABLES Final Res ult documented in this encounter Visit Diagnoses Not on filedocumented in this encounter Additional Health Concerns Assessment Noted Time PHQ-9 Depression Total Score: 3 08/19/20 25 9:50 AM EDT documented as of this encounter Care Teams Financial Compliance Manager Relationship Specialty Start Date End Date WinklerAndriy Gonzalez MD [address] [place] [address] PCP - General Internal Medicine 04/05/20 documented as of this encounter
--- OUTSIDE RECORDS SUMMARY | 2025-09-16 10:39 | XMS_ITS | Encounter Summary ---
Author Organization [employer] Address [address] [facility] 7t [place] [address] Care Team Providers Care Jacquard Fixer Name Role Phone Andriy Scott MD Primary Care Prov ider Encounter Details Date Type Department Care Team ([facility] Contact Info) Description 07/19/2025 Orders Only [facility] [address] [place], [place] [phone] ProviderKaren MD Social History Tobacco Use Types [...] [facility] MED & PEDS 505 [place] [address] Andriy Scott MD 505 [place] [address] 09/27/2025 11:00 AM EST Clinical Support [facility] MED & PEDS 505 [place] [address] 10/12/2025 10:45 AM EST Office Visit [facility] MED & PEDS [address] [place] [address] Andriy Scott MD [address] [place] [address] documented as of this encounter Goals Goal [...] documented as of this encounter Care Teams Jacquard Fixer Relationship Specialty Start Date End Date WinklerAndriy Gonzalez MD [address] [place] [address] PCP - General Internal Medicine 04/05/20 documented as of this encounter
--- OUTSIDE RECORDS SUMMARY | 2025-09-16 10:39 | XMS_ITS | Encounter Summary ---
Author Organization [employer] Address [address] [facility] 7t [place] [address] Care Team Providers Care Paperhanger Name Role Phone Andriy Scott MD Primary Care Prov ider Encounter Details Date Type Department Care Team ([facility] Contact Info) Description 08/05/2025 Orders Only [facility] [address] [place], [place] [phone] ProviderKaren MD Social History Tobacco Use Types [...] Description 09/21/2025 2:15 PM EDT Telemedicine [facility] MED & PEDS 505 [place] [address] Andriy Scott MD [address] [place] [address] 09/27/2025 11:00 AM EST Clinical Support [facility] MED & PEDS [address] [place] [address] 10/12/2025 10:45 AM EST Office Visit [facility] MED & PEDS [address] [place] [address] Andriy Scott MD [address] [place] [address] documented as of this encounter Goals Goal [...] Date/Time Associated Diagnosis Comments ECG 12-LEAD Routine 08/04/2025 2:38 PM EDT documented in this encounter Results * ECG 12 lead (08/04/2025 2:38 PM EDT) us Historical Provider ECG ORDERABLES Final Res ult documented in this encounter Visit Diagnoses Not on filedocumented in this encounter Additional Health Concerns Assessment Noted Time PHQ-9 Depression Total Score: 0 02/22/20 23 1:22 PM EDT documented as of this encounter Care Teams Paperhanger Relationship Specialty Start Date End Date WinklerAndriy Gonzalez MD [address] [place] [address] PCP - General Internal Medicine 04/05/20 documented as of this encounter
--- OUTSIDE RECORDS SUMMARY | 2025-09-16 10:39 | XMS_ITS | Clinical Summary ---
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
--- OUTSIDE RECORDS SUMMARY | 2025-09-16 10:39 | XMS_ITS | Encounter Summary ---
Author Organization [employer] Address [address] [facility] 7t [place] [address] Care Team Providers Care Store Specialist Name Role Phone Andriy Scott MD Primary Care Prov ider Reason for Visit * Reason Comments Med Refill Encounter Details Date Type Department Care Team ([facility] Contact Info) Description 02/10/2024 Refill [facility] CHC MED & PEDS [address] [place], [place] [phone] Andriy Scott MD [address] [place] [address] Mixed hyperlipidemia Social History Tobacco Use Types [...] Info) Description 09/21/2025 2:15 PM EDT Telemedicine [facility] MED & PEDS [address] [place] [address] Andriy Scott MD [address] [place] [address] 09/27/2025 11:00 AM EST Clinical Support [facility] MED & PEDS [address] [place] [address] 10/12/2025 10:45 AM EST Office Visit [facility] MED & PEDS [address] [place] [address] Andriy Scott MD [address] [place] [address] documented as of this encounter Goals Goal [...] documented as of this encounter Care Teams Store Specialist Relationship Specialty Start Date End Date Andriy Scott MD [address] [place] [address] PCP - General Internal Medicine 04/05/20 documented as of this encounter
--- OUTSIDE RECORDS SUMMARY | 2025-09-16 10:39 | XMS_ITS | Encounter Summary ---
Author Organization [employer] Address [address] [facility] 7t [place] [address] Care Team Providers Care Account Executive Name Role Phone Andriy Scott MD Primary Care Prov ider Encounter Details Date Type Department Care Team ([facility] Contact Info) Description 08/04/2025 Orders Only [facility] [address], [place] [phone] ProviderKaren MD Social History Tobacco Use Types [...] Info) Description 09/21/2025 2:15 PM EDT Telemedicine [facility] MED & PEDS [address] [place] [address] Andriy Scott MD [address] [place] [address] 09/27/2025 11:00 AM EST Clinical Support [facility] MED & PEDS 505 [place] [address] 10/12/2025 10:45 AM EST Office Visit [facility] MED & PEDS [address] [place] [address] Andriy Scott MD [address] [place] [address] documented as of this encounter Goals Goal [...] Name Priority Date/Time Associated Diagnosis Comments CT HEAD WO CONTRAST Routine 08/04/2025 2:06 PM EDT XR CHEST 1 VIEW Routine 08/04/2025 1:[address] ABDOMEN PELVIS W CONTRAST Routine 08/04/2025 12:46 PM EDT documented in this encounter Results * CT Head w/o Contrast (08/04/2025 2:06 PM EDT) Anatomical Region Laterality Modality Head, Neck Computed Tomogra phy Historical Provider MD CHAVEZ CT PROCEDURES Final R esult * XR Chest 1 View (08/04/2025 1:19 PM EDT) Anatomical Region Laterality Modality Chest Radiographic Steph ging Historical Provider IMFaviola XR PROCEDURES Final R esult * CT Abdomen Pelvis w/ Contrast (08/04/2025 12:46 PM EDT) Anatomical Region Laterality Modality Body, Pelvis, Abdomen Computed T omography [facility] Provider MD CHAVEZ CT PROCEDURES Final R esult documented in this encounter Visit Diagnoses Not on filedocumented in this encounter Additional Health Concerns Assessment Noted Time PHQ-9 Depression Total Score: 0 02/22/20 23 1:22 PM EDT documented as of this encounter Care Teams Account Executive Relationship Specialty Start Date End Date Andriy Scott MD [address] [place] [address] PCP - General Internal Medicine 04/05/20 documented as of this encounter
--- OUTSIDE RECORDS SUMMARY | 2025-09-16 10:39 | XMS_ITS | Encounter Summary ---
Author Organization [employer] Address [address] [facility] 7t [place] [address] Care Team Providers Care Educational Speech Language Clinician Name Role Phone Andriy Scott MD Primary Care Prov ider Encounter Details Date Type Department Care Team ([facility] st Contact Info) Description 11/07/2023 Abstract [facility] ADULT DENTAL [address] [place] [address] Elder Akers DDS [address] [place] [address] Social History Tobacco Use Types Packs/Day Years [...] Info) Description 09/21/2025 2:15 PM EDT Telemedicine [facility] MED & PEDS [address] [place] [address] Andriy Scott MD [address] [place] [address] 09/27/2025 11:00 AM EST Clinical Support [facility] MED & PEDS [address] [place] [address] 10/12/2025 10:45 AM EST Office Visit [facility] MED & PEDS [address] [place] [address] Andriy Scott MD [address] [place] [address] documented as of this encounter Visit Diagnoses Not on filedocumented in this encounter Additional Health Concerns Assessment Noted Time PHQ-9 Depression Total Score: 0 02/22/20 23 1:22 PM EDT documented as of this encounter Care Teams Educational Speech Language Clinician Relationship Specialty Start Date End Date Andriy Scott MD [address] [place] [address] PCP - General Internal Medicine 04/05/20 documented as of this encounter
--- OUTSIDE RECORDS SUMMARY | 2025-09-16 10:39 | XMS_ITS | Encounter Summary ---
Author Organization [employer] Address [address] [facility] 7t [place] [address] Care Team Providers Care Research Microbiologist Name Role Phone Andriy Scott MD Primary Care Prov ider Encounter Details Date Type Department Care Team ([facility] Contact Info) Description 06/08/2025 Orders Only [facility] CHC MED & PEDS [address] [place], [place] [phone] Andriy Scott MD [address] [place] [address] Social History Tobacco Use Types Packs/Day Years [...] Upcoming Encounters Date Type Department Care Team ([facility] st Contact Info) Description 09/21/2025 2:15 PM EDT Telemedicine [facility] MED & PEDS [address] [place] [address] Andriy Scott MD [address] [place] [address] 09/27/2025 11:00 AM EST Clinical Support [facility] MED & PEDS [address] [place] [address] 10/12/2025 10:45 AM EST Office Visit [facility] MED & PEDS [address] [place] [address] Andriy Scott MD [address] [place] [address] documented as of this encounter Goals Goal [...] documented as of this encounter Care Teams Research Microbiologist Relationship Specialty Start Date End Date Andriy Scott MD [address] [place] [address] PCP - General Internal Medicine 04/05/20 documented as of this encounter
--- OUTSIDE RECORDS SUMMARY | 2025-09-16 10:39 | XMS_ITS | Clinical Summary ---
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 015 Active ferrous gluconate (FERGON) 324 mg (37.5 mg iron) tablet Take 1 tablet (324 mg total) by mouth 1 (one) time each day. 024 Active nitroglycerin (NITROSTAT) 0.4 mg SL tabletIndicatio ns:Coronary artery disease involving [place] coronary artery of [place] heart without angina pectoris Place 1 tablet (0.4 mg total) under the tongue every 5 (five) minutes if needed for chest pain. 26 tablet 3 025 Active Repatha SureClick 140 mg/mL pen injector injection INJECT ONE ML SUBCUTANEOUSLY EVERY 14 DAYS 2 mL 6 025 Active cetirizine (ZyrTEC) 10 mg chewable tablet Chew 1 (one) time each day. Active isosorbide mononitrate (IMDUR) 30 mg 24 hr tablet Take 1 tablet (30 mg total) by mouth 2 (two) times a day. Do not crush or chew. Active rosuvastatin (CRESTOR) 20 mg tablet Take 1 tablet (20 mg total) by mouth 1 (one) time each day. Active cholecalciferol (VITAMIN D-3) 25 mcg (1,000 unit) tablet Take 1 tablet (1,000 Units total) by mouth 1 (one) time each day. Active carvediloL (COREG) 6.25 mg tablet Take 1 tablet (6.25 mg total) by mouth 2 (two) times a day with meals. 60 each 5 025 2025 Active spironolactone (ALDACTONE) 50 mg tablet Take 1 tablet (50 mg total) by mouth 1 (one) time each day. 90 each 025 2024 Active valsartan (DIOVAN) 160 mg tablet Take 1 tablet (160 mg total) by mouth 2 (two) times a day. Active lactulose (CHRONULAC) solution Take 30 mL (20 g total) by mouth 2 (two) times a day. 1800 mL 2 025 Active omeprazole (PriLOSEC) [address] capsule Take 1 capsule (20 mg total) by mouth 1 (one) time each day. 2024 Discontinued dulaglutide (Trulicity) 0.75 mg/0.5 mL pen injector injection Inject into the skin. 2024 Discontinued albuterol HFA (PROAIR HFA ; PROVENTIL HFA ; VENTOLIN HFA) 90 mcg/actuation inhaler Inhale 2 puffs by mouth every 4 (four) hours if needed. 2024 Discontinued loratadine (CLARITIN) 10 mg tablet 016 2024 Discontinued Active Problems Problem Noted Date Diagnosed Date Mesenteric artery stenosis ([facility] V24) 025 Stenosis of common iliac artery ([facility] V24) Resistant hypertension 07/23/2025 FLEMING (dyspnea on exertion) 07/23/2025 Subclavian artery stenosis, left ([facility] V24) 0 06/15/2025 History of coronary artery stent placement 06/15 Overview (06/15/2025): Multiple Class 3 severe obesity due t o excess calories with serious comorbidity and body mass index (BMI) of 40.0 to 44.9 in adult ([facility] V24, [facility] V28) 12/15/2024 Assessment & Plan (12/15/2024 4:02 PM EST): Patient is obese. Approaches towards weight loss are discussed, including burning more calories than one takes in by portion control and regular exercise with an emphasis on duration rather than intensity. Peripheral edema 09/01/2024 Fatigue 09/01/2024 Dizziness 09/01/2024 Overview (09/01/2024): Dizziness and lightheadedness Carotid stenosis, bilateral 09/01/2024 Chest pain 11/26/2023 Dyslipidemia 11/26/2023 Stable angina ([facility] V24) 11/26/2023 PAD (peripheral artery disease) ([facility] V24) Overview (09/01/2024): Last Assessment & Plan: Follows with Dr. Bhatia Assessment & Plan (12/15/2024 4:02 PM EST): The patient offers no symptoms; no new concerning findings on exam today. We will continue to monitor this on serial imaging. Continue with efforts towards proper blood pressure and lipid control. Coronary artery disease invo lving [place] heart without angina pectoris 12/15/2020 Overview (09/01/2024): [...] Encounters Date Type Department Care Team Description 09/08/2025 9:52 PM EDT - 09/09/2025 1:57 AM EDT Emergency [facility] Emergency [address] [place] [phone] Rene Philip MD Secondary hypertension (Primary Dx) Discharge Disposition: Home or Self Care 09/05/2025 10:07 PM EDT - 09/06/2025 4:12 AM EDT Emergency [facility] Emergency [address] [place] [phone] Resistant hypertension (Primary Dx) Discharge Disposition: Home or Self Care 08/31/2025 10:30 AM EDT - 08/31/2025 11:30 AM EDT Surgery [facility] Cardiac [employer] [address] [place] [phone] Patrick Bhatia MD Angiography iliac bilateral [04619 (CPT )] 08/31/2025 8:53 AM EDT - 08/31/2025 5:05 PM EDT Hospital Encounter [facility] [employer] [address] [place] [phone] Patrick Bhatia MD Stenosis of common iliac artery ([facility]/HCC V24); Mesenteric artery stenosis (CMS/HCC V24) Discharge Disposition: Home or Self Care 08/20/2025 11:30 AM EDT Consult Vascular Surgery - [place] [address] [place] [phone] Patrick Bhatia MD Mesenteric artery stenosis (CMS/HCC V24) (Primary Dx); LLQ abdominal pain; Constipation, unspecified constipation type; 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) 08/18/2025 Telephone Gastroenterology - [place] [address] [facility] [address] [facility] [address] [place] [phone] Shannon Ceron PA 08/17/2025 9:50 AM EDT Office Visit Gastroenterology - [place] [address] [facility] [address] [facility] [address] [place] [phone] Shannon Ceron PA LLQ abdominal pain (Primary Dx); Constipation, unspecified constipation type; Stenosis of common iliac artery ([facility]) 08/09/2025 10:30 AM EDT Office Visit Orthopedic Surgery [facility] [address] [facility] [address] [place] [phone] Phan Avalos, DPM Type 2 diabetes mellitus with stage 3 chronic kidney disease, without long-term current use of insulin, unspecified whether stage 3a or 3b CKD ([facility]/HCC V24, [facility] V28) (Primary Dx); Arthritis of both feet; Hammertoes of both feet; Pain in toes of both feet; Dermatophytosis, nail 08/04/2025 4:09 AM EDT - 08/04/2025 2:15 PM EDT Emergency [facility] Emergency [address] [place] [phone] Lester Montejo MD Wire, Jessica, MD Acute cystitis without hematuria (Primary Dx); Abnormal CT of the abdomen Discharge Disposition: Home or Self Care 07/30/2025 1:00 PM EDT Ancillary Procedure [facility]iology [facility] - [facility] [address] [place] [phone] FLEMING (dyspnea on exertion); Resistant hypertension; Coronary artery disease involving [place] coronary artery of [place] heart without angina pectoris; History of coronary artery stent placement 07/23/2025 Telephone Gastroenterology [facility] [address] [facility] [address] [facility] [address] [place] [phone] Hanh Kiser MA 07/22/2025 Telephone [facility]iology [facility] - [facility] [address] [facility] [address] [place] [phone] Santi Becker MD 07/21/2025 Telephone Gastroenterology [facility] [address] [facility] [address] [facility] [address] [place] [phone] Shannon Ceron PA 07/16/2025 Telephone [facility] - [address] [place] [phone] Yajaira Jauregui RN 07/15/2025 11:21 PM EDT - 07/16/2025 11:19 AM EDT Emergency [facility] Emergency [address] [place] [phone] Adriel Nguyen MD Landry, Jonathan P, MD Hypertension, unspecified type (Primary Dx) Discharge Disposition: Home or Self Care 07/14/2025 Telephone [facility] - [address] [place] [phone] Santi Becker MD 07/12/2025 Telephone [facility] - [address] [place] [address] Santi Becker MD 06/29/2025 Telephone [facility] - [address] [place] [address] Santi Becker MD 06/25/2025 Telephone [facility] - [address] [place] [phone] Alma Clark MA from Last 3 Months Surgical History Surgery [...] Sign Reading Time Taken Comments Blood Pressure 174/58 09/09/2025 12:43 AM EDT Pulse 50 09/09/2025 12:43 AM EDT Temperature 36.5 C (97.7 F) 09/08/2025 10:04 PM EDT Respiratory Rate 22 09/08/2025 10:29 PM EDT Oxygen Saturation 98% 09/09/2025 12:43 AM EDT Inhaled Oxygen Concentration - - Weight 68.5 kg (151 lb) 08/31/2025 9:05 AM EDT Height 149.9 cm (4' 11 ) 08/31/2025 9:05 AM EDT Body Mass Index 30.5 08/31/2025 9:05 AM EDT Plan of Treatment Upcoming Encounters Date Type Department Care Team (Late st Contact Info) Description 09/20/2025 3:00 PM EDT Office Visit Vascular Surgery - [place] [facility] [address] [place] [phone] Gilda Hernandez PA [address] [facility] [address] [place] [address] 10/26/2025 2:40 PM EST Office Visit Gastroenterology - [address] [facility] [address] [facility] [address] [place] [phone] Shannon Ceron PA 175 [facility] 200 [place] [address] 2025 1:45 PM EST Office Visit Orthopedic Surgery - [place] [address] [facility] 250 [place] [phone] Phan Avalos DPM [address] [facility] 250 [place] [address] 12/24/2025 9:10 AM EST Office Visit [facility] - [address] [place] [phone] Mary Jett, SHELBI [address] [place] [address] Health Maintenance Due Date Last Done Comments Diabetes: Annual Foot Exam 1955 Diabetes: Annual Retina Eye Exam 1955 Pneumococcal Vaccine: 50+ Years (1 of 2 - PCV) 1963 RSV Immunization Adult Patients (1 - 1-dose 75+ series) 2019 Falls Risk Assessment 11/03/2022 Medicare Annual Wellness Visit 11/03/2022 Osteoporosis Screening (Bone Density Screening) 11/03/2022 Social Influencers of Health Screening 11/03/2022 Depression Screening 11/25/2024 COVID-19 Vaccine ( season) 2025 10/30/2021, 04/10/2021, 03/20/2021 Influenza Vaccine (#1) 2025 Diabetes: Blood Sugar Control Test (HGBA1C) 01/01/2026 07/01/2025, 12/29/2024, 09/14/2024, Additional history exists Diabetes: Annual Urine Albumin-Creatinine Ratio (uACR) 07/05/2026 07/05/2025, 03/27/2023 Diabetes: Annual GFR (Glomerular Filtration Rate) 09/08/2026 09/08/2025, 09/05/2025, 08/31/2025, Additional history exists Hypertension/CHF/CAD Annual BMP Blood Test 09/08/2026 09/08/2025, 09/05/2025, 08/31/2025, Additional history exists Cholesterol Screening (Lipid Panel) [...] Priority Date/Time Associated Diagnosis Comments ECG ANNOTATED 09/09/2025 TROPONIN I HIGH SENSITIVITY Timed 09/08/2025 11:35 PM EDT ECG 12-LEAD STAT 09/08/2025 11:23 PM EDT XR CHEST 2 VIEWS STAT 09/08/2025 10:5 8 PM EDT CBC WITH AUTO DIFFERENTIAL STAT 09/08/2025 10:47 PM EDT PROTHROMBIN TIME WITH INR STAT 09/08/2025 10:47 PM EDT ACTIVATED PARTIAL THROMBOPLASTIN TIME STAT 09/08/2025 10:47 PM EDT B-TYPE NATRIURETIC PEPTIDE STAT 09/08/2025 10:47 PM EDT MAGNESIUM STAT 09/08/2025 10:47 PM EDT LIPASE STAT 09/08/2025 10:47 PM EDT COMPREHENSIVE METABOLIC PANEL STAT 09/08/2025 10:47 PM EDT CBC AND DIFFERENTIAL STAT 09/08/2025 10:47 PM EDT TROPONIN I HIGH SENSITIVITY Timed 09/08/2025 10:47 PM EDT ECG 12-LEAD STAT 09/08/2025 10:09 PM EDT ECG ANNOTATED 09/07/2025 TROPONIN I HIGH SENSITIVITY Timed 09/05/2025 11:28 PM EDT XR CHEST 2 VIEWS STAT 09/05/2025 10:4 7 PM EDT PROTHROMBIN TIME WITH INR STAT 09/05/2025 10:25 PM EDT CBC WITH AUTO DIFFERENTIAL STAT 09/05/2025 10:25 PM EDT B-TYPE NATRIURETIC PEPTIDE STAT 09/05/2025 10:25 PM EDT COMPREHENSIVE METABOLIC PANEL STAT 09/05/2025 10:25 PM EDT CBC AND DIFFERENTIAL STAT 09/05/2025 10:25 PM EDT TROPONIN I HIGH SENSITIVITY Timed 09/05/2025 10:25 PM EDT ECG 12-LEAD STAT 09/05/2025 10:23 PM EDT POCT ACTIVATED CLOTTING TIME, KAOLIN Routine 08/31/2025 11:24 AM EDT ANGIOGRAPHY ILIAC BILAT Routine 08/31/2025 11:09 AM EDT 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) Mesenteric artery stenosis (CMS/HCC V24) CBC WITH AUTO DIFFERENTIAL Routine 08/31/2025 9:33 AM EDT ACTIVATED PARTIAL THROMBOPLASTIN TIME Routine 08/31/2025 9:33 AM EDT PROTHROMBIN TIME WITH INR Routine 08/31/2025 9:33 AM EDT CBC AND DIFFERENTIAL Routine 08/31/2025 9:33 AM EDT BASIC METABOLIC PANEL Routine 08/31/2025 9:33 AM EDT ECG ANNOTATED 08/05/2025 LACTATE STAT 08/04/2025 8:[address] HEAD WO CONTRAST STAT 08/04/2025 7 :[address] ABDOMEN PELVIS W CONTRAST STAT 08/04/2025 7:42 AM EDT XR CHEST 1 VIEW STAT 08/04/2025 6:41 AM EDT ECG 12-LEAD STAT 08/04/2025 5:35 AM EDT URINALYSIS WITH REFLEX MICROSCOPIC STAT 08/04/2025 4:45 AM EDT URINALYSIS WITH REFLEX MICROSCOPIC STAT 08/04/2025 4:45 AM EDT LIPASE STAT Add-on 08/04/2025 4:33 AM EDT CBC WITH AUTO DIFFERENTIAL STAT 08/04/2025 4:33 AM EDT TROPONIN I HIGH SENSITIVITY STAT 08/04/2025 4:33 AM EDT CBC AND DIFFERENTIAL STAT 08/04/2025 4:33 AM EDT COMPREHENSIVE METABOLIC PANEL STAT 08/04/2025 4:33 AM EDT NM LEXISCAN STRESS TEST W/ MYOCARDIAL PERFUSION Routine 07/30/2025 3:50 PM EDT FLEMING (dyspnea on exertion) Resistant hypertension Coronary artery disease involving [place] coronary artery of [place] heart without angina pectoris History of coronary artery stent placement ECG ANNOTATED 07/19/2025 CT ABDOMEN PELVIS WO [...] from Last 3 Months Results * ECG-Annotated (09/09/2025) Only the most recent of4 resultswithin the time period is included. us Provider Onbase MD ECG ORDERABLES Final Result * (ABNORMAL) Troponin I high sensitivity (09/08/2025 11:35 PM EDT) Only the most recent of7 resultswithin the time period is included. [facility] High Sensitivity Troponin I 55(H) <=54 ng/L LAB CHEMISTRY METHOD 09/09/2025 12:11 AM EDT [facility] Blood Venous blood specimen / Unknown Venipuncture / Unknown 09/08/2025 11:35 PM EDT 09/08/2025 11:40 PM EDT Narrative [facility] - 09/09/2025 12:11 AM EDT High levels of biotin in samples may falsely decrease hsTroponin values. Use caution when interpreting hsTroponin results in patients taking biotin who exhibit renal impairment (eGFR <60) or in patients taking more than 20 mg/day of biotin. Antionette Pride MD LAB BLOOD ORDERABLES Final Res ult [facility] [address] [place] [address], * ECG 12 lead (09/08/2025 11:23 PM EDT) Only the most recent of5 resultswithin the time period is included. [facility] Ventricular Rate ECG 53 BPM GEMUSE Atrial Rate 53 BPM GEMUSE P-R Interval 182 ms GEMUSE QRS Duration 90 ms GEMUSE Q-T Interval 436 ms GEMUSE QTc 409 ms GEMUSE P Wave [place] 8 degrees GEMUSE R [place] -9 degrees GEMUSE T [place] 18 degrees GEMUSE ECG Interpretation Sinus bradycardia Moderate voltage criteria for LVH, may be normal variant ( R in aVL , Hudson product ) When compared with ECG of 08-SEP-2025 22:09, (unconfirmed) No significant change was found Confirmed by LONG BARTHOLOMEW ([id number]) on 09/09/2025 8:50:01 PM GEMUSE 09/08/2025 11:2 3 PM EDT 09/09/2025 8:50 PM EDT us Antionette Pride MD ECG ORDERABLES Final Result G[facility] * XR Chest 2 Views (09/08/2025 10:58 PM EDT) Only the most recent of2 resultswithin the time period is included. Anatomical Region Laterality Modality Body Radiographic Steph ging 09/09/2025 7:01 AM EDT Impressions 09/09/2025 7:04 AM EDT No acute pneumonia or edema. Extensive arterial calcification including stents. Probable calcified granuloma. -------- FINAL REPORT -------- Dictated By: Jaswinder Rodríguez Dictated Date: 09/09/2025 07:01 ET Assigned Physician: Jaswinder Rodríguez Reviewed and Electronically Signed By: Jaswinder Rodríguez Signed Date: 09/09/2025 07:04 ET Workstation ID: [id number] Transcribed By: Self Edit Transcribed Date: 09/09/2025 07:01 ET Narrative 09/09/2025 7:04 AM EDT EXAMINATION: CHEST CLINICAL INFORMATION: Chest pain COMPARISON: Frontal view 09/05/25 TECHNIQUE: 2 views of the chest FINDINGS: Mild lordosis. Calcified tortuous aorta. The cardiac size is top normal. Suspect a coronary stent are demonstrated on previous. There is no mediastinal or hilar mass. No vascular congestion or edema. No focal pneumonia, pleural fluid or pneumothorax. Calcified density projects over the posterior mid chest in the lateral projection and is unchanged. Extensive osteophytes in the spine. There is marked arterial calcification and there is a stent in the mediastinum perhaps within the left subclavian or left carotid proximally. Procedure Note Jaswinder Rodríguez MD - 09/09/2025 EXAMINATION: CHEST CLINICAL INFORMATION: Chest pain COMPARISON: Frontal view 09/05/25 TECHNIQUE: 2 views of the chest FINDINGS: Mild lordosis. Calcified tortuous aorta. The cardiac size is top normal.Suspect a coronary stent are demonstrated on previous. There is nomediastinal or hilar mass. No vascular congestion or edema. No focal pneumonia, pleural fluid or pneumothorax. Calcified density projects over the posterior mid chest in the lateralprojection and is unchanged. Extensive osteophytes in the spine. There ismarked arterial calcification and there is a stent in the mediastinumperhaps within the left subclavian or left carotid proximally. IMPRESSION: No acute pneumonia or edema. Extensive arterial calcification includingstents. Probable calcified granuloma. -------- FINAL REPORT -------- Dictated By: Jaswinder Rodríguez Dictated Date: 09/09/2025 07:01 ET Assigned Physician: Jaswinder Rodríguez Reviewed and Electronically Signed By: Jaswinder Rodríguez Signed Date: 09/09/2025 07:04 ET Workstation ID: [id number] Transcribed By: Self Edit Transcribed Date: 09/09/2025 07:01 ET Antionette Pride MD IMG XR PROCEDURES Final Result * (ABNORMAL) CBC auto differential (09/08/2025 10:47 PM EDT) Only the most recent of5 resultswithin the time period is included. WBC 9.1 4.8 - 10.8 K/mcL LAB HEMETOLOGY METHOD 09/08/2025 11:18 PM EDT [facility] RBC 4.20 3.80 - 4.80 M/mcL LAB HEMETOLOGY METHOD 09/08/2025 11:[facility] Hemoglobin 11.7 11.5 - 16.0 g/dL LAB HEMETOLOGY METHOD 09/08/2025 11:18 PM EDT [facility] Hematocrit 37.1 35.0 - 47.0 % LAB HEMETOLOGY METHOD 09/08/2025 11:18 PM [facility] MCV 88.8 79.0 - 98.0 FL LAB HEMETOLOGY METHOD 09/08/2025 11:18 PM [facility] MCH 28.0 27.0 - 32.0 pcg LAB HEMETOLOGY METHOD 09/08/2025 11:18 PM [facility] MCHC 31.5(L) 32.0 - 37.0 g/dL LAB HEMETOLOGY METHOD 09/08/2025 11:18 PM [facility] RDW 13.7 11.0 - 15.0 % LAB HEMETOLOGY METHOD 09/08/2025 11:18 PM [facility] Platelets 295 130 - 400 K/mcL LAB HEMETOLOGY METHOD 09/08/2025 11:18 PM [facility] MPV 9.2 7.0 - 11.0 FL LAB HEMETOLOGY METHOD 09/08/2025 11:18 PM [facility] NRBC 0.0 <1.0 % LAB HEMETOLOGY METHOD 09/08/2025 11:18 PM [facility] NRBC Absolute 0.00 <0.10 K/mcL LAB HEMETOLOGY METHOD 09/08/2025 11:18 PM [facility] Neutrophils Relative 70.0 % LAB HEMETOLOGY METHOD 09/08/2025 11:18 PM [facility] Lymphocytes Relative 19.5 % LAB HEMETOLOGY METHOD 09/08/2025 11:18 PM [facility] Monocytes Relative 5.7 % LAB HEMETOLOGY METHOD 09/08/2025 11:18 PM [facility] Eosinophils Relative 4.1 % LAB HEMETOLOGY METHOD 09/08/2025 11:18 PM [facility] Basophils Relative 0.2 % LAB HEMETOLOGY METHOD 09/08/2025 11:18 PM [facility] Immature Granulocytes Relative 0.5 % LAB HEMETOLOGY METHOD 09/08/2025 11:18 PM [facility] Neutrophils Absolute 6.37 1.50 - 7.00 K/mcL LAB HEMETOLOGY METHOD 09/08/2025 11:18 PM [facility] Lymphocytes Absolute 1.78 1.00 - 5.00 K/mcL LAB HEMETOLOGY METHOD 09/08/2025 11:18 PM EDT [facility] Monocytes Absolute 0.52 0.20 - 1.00 K/[facility] LAB HEMETOLOGY METHOD 09/08/2025 11:18 PM EDT [facility] Eosinophils Absolute 0.37 0.00 - 0.50 K/[facility] LAB HEMETOLOGY METHOD 09/08/2025 11:18 PM EDT [facility] Basophils Absolute 0.02 0.00 - 0.20 K/[facility] LAB HEMETOLOGY METHOD 09/08/2025 11:18 PM EDT [facility] Immature Granulocytes Absolute 0.05(H) 0.00 - 0.03 K/[facility] LAB HEMETOLOGY METHOD 09/08/2025 11:18 PM EDT [facility] Blood Venous blood specimen / Unknown Venipuncture / Unknown 09/08/2025 10:47 PM EDT 09/08/2025 11:14 PM EDT Antionette Pride MD LAB BLOOD ORDERABLES Final Res ult Performing Organization Address City/[facility] Co de Phone Number [facility] [address] [place] [address], * APTT (09/08/2025 10:47 PM EDT) Only the most recent of2 resultswithin the time period is included. aPTT 29.8 24.1 - 39.3 sec LAB COAGULATION METHOD 09/08/2025 11:27 PM EDT [facility] Blood Venous blood specimen / Unknown Venipuncture / Unknown 09/08/2025 10:47 PM EDT 09/08/2025 11:14 PM EDT Antionette Pride MD LAB BLOOD ORDERABLES Final Res ult Performing Organization Address City/State/[facility] Co de Phone Number [facility] [address] [place] [address], [place] [phone] * Protime-INR (09/08/2025 10:47 PM EDT) Only the most recent of3 resultswithin the time period is included. Protime 11.6 10.6 - 13.9 sec LAB COAGULATION METHOD 09/08/2025 11:27 PM EDT [facility] INR 0.9 LAB COAGULATION METHOD 09/08/2025 11:27 PM EDT [facility] Blood Venous blood specimen / Unknown Venipuncture / Unknown 09/08/2025 10:47 PM EDT 09/08/2025 11:14 PM EDT us Antionette Pride MD LAB BLOOD ORDERABLES Final Res ult Performing Organization Address [facility] Co de Phone Number [facility] [address] [place] [address], [place] [phone] * B-type natriuretic peptide (09/08/2025 10:47 PM EDT) Only the most recent of3 resultswithin the time period is included. BNP 29 <=100 pcg/mL LAB CHEMISTRY METHOD 09/09/2025 12:23 AM EDT [facility] Blood Venous blood specimen / Unknown Venipuncture / Unknown 09/08/2025 10:47 PM EDT 09/08/2025 11:14 PM EDT us Antionette Pride MD LAB BLOOD ORDERABLES Final Res ult Performing Organization Address City/[facility]/ZIP Co de Phone Number [facility] [address] [place] [address], [place] [phone] * Magnesium (09/08/2025 10:47 PM EDT) Only the most recent of2 resultswithin the time period is included. Magnesium 1.9 1.9 - 2.6 mg/dL LAB CHEMISTRY METHOD 09/08/2025 11:38 PM EDT [facility] Blood Venous blood specimen / Unknown Venipuncture / Unknown 09/08/2025 10:47 PM EDT 09/08/2025 11:14 PM EDT us Antionette Pride MD LAB BLOOD ORDERABLES Final Res ult Performing Organization Address City/[facility]/ZIP Co de Phone Number [facility] [address] [place], [place] [address], [place] [phone] * Lipase (09/08/2025 10:47 PM EDT) Only the most recent of2 resultswithin the time period is included. Pathologist [facility] Lipase 34 13 - 75 unit/L LAB CHEMISTRY METHOD 09/08/2025 11:38 PM EDT [facility] Blood Venous blood specimen / Unknown Venipuncture / Unknown 09/08/2025 10:47 PM EDT 09/08/2025 11:14 PM EDT us Antionette Pride MD LAB BLOOD ORDERABLES Final Res ult Performing Organization Address [facility]/ZIP Co de Phone Number [facility] [address] [place] [address], [place] [phone] * (ABNORMAL) Comprehensive metabolic panel (09/08/2025 10:47 PM EDT) Only the most recent of3 resultswithin the time period is included. Sodium 140 133 - 145 mmol/L LAB CHEMISTRY METHOD 09/08/2025 11:38 PM EDT [facility] Potassium 4.9 3.5 - 5.5 mmol/L LAB CHEMISTRY METHOD 09/08/2025 11:38 PM EDT [facility] Chloride 108 96 - 110 mmol/L LAB CHEMISTRY METHOD 09/08/2025 11:38 PM [facility] CO2 27 21 - 32 mmol/L LAB CHEMISTRY METHOD 09/08/2025 11:38 PM [facility] Anion Gap 5 3 - 11 LAB CHEMISTRY METHOD 09/08/2025 11:38 PM [facility] Glucose 107(H) 70 - 100 mg/dL LAB CHEMISTRY METHOD 09/08/2025 11:38 PM [facility] BUN 16 5 - 25 mg/dL LAB CHEMISTRY METHOD 09/08/2025 11:38 PM [facility] Creatinine 0.89 0.50 - 1.10 mg/dL LAB CHEMISTRY METHOD 09/08/2025 11:38 PM [facility] eGFR 66 >=60 mL/min/1. 73m2 LAB CHEMISTRY METHOD 09/08/2025 11:38 PM [facility] Comment:Calculation based on the Chronic Kidney Disease Epidemiology Collaboration (CKD-EPI) equation refit without adjustment for race. BUN/Creatinine Ratio 18.0 LAB CHEMISTRY METHOD 09/08/2025 11:38 PM [facility] Calcium 10.1 8.5 - 10.5 mg/dL LAB CHEMISTRY METHOD 09/08/2025 11:38 PM [facility] AST (SGOT) 24 10 - 42 unit/L LAB CHEMISTRY METHOD 09/08/2025 11:38 PM [facility] ALT (SGPT) 19 10 - 60 unit/L LAB CHEMISTRY METHOD 09/08/2025 11:38 PM [facility] Alkaline Phosphatase 65 42 - 121 unit/L LAB CHEMISTRY METHOD 09/08/2025 11:38 PM [facility] Total Protein 6.8 6.0 - 8.0 g/dL LAB CHEMISTRY METHOD 09/08/2025 11:38 PM [facility] Albumin 3.8 3.2 - 5.0 g/dL LAB CHEMISTRY METHOD 09/08/2025 11:38 PM EDT [facility] Total Bilirubin 0.3 0.0 - 1.4 mg/dL LAB CHEMISTRY METHOD 09/08/2025 11:38 PM EDT [facility] Blood Venous blood specimen / Unknown Venipuncture / Unknown 09/08/2025 10:47 PM EDT 09/08/2025 11:14 PM EDT us Antionette Pride MD LAB BLOOD ORDERABLES Final Res ult Performing Organization Address City/[facility]/ZIP Co de Phone Number [facility] [address] [place] [address], [place] [phone] * (ABNORMAL) POCT activated clotting time,kaolin (08/31/2025 11:24 AM EDT) Activated Clotting Time Kaolin 193(H) 74 - 137 sec 08/31/2025 11:25 AM EDT [facility] Blood Arterial blood specimen / Unknown 08/31/2025 11:24 AM EDT 08/31/2025 11:27 AM EDT us Patrick Bhatia MD LAB POINT OF CARE TE ST DOCKED DEVICE UNSOLICITED RESULTS Final Result Performing Organization Address City/[facility]/ZIP Co de Phone Number [facility] [address] [place] [address], [place] [phone] * ANGIOGRAPHY ILIAC BILAT (08/31/2025 11:09 AM EDT) Anatomical Region Laterality Modality X-Ray Angiograph y Narrative 09/02/2025 7:02 AM EDT Per op note Study Details Per H&P Clinical Background Per H&P Procedure Details Per op note us Patrick Bhatia MD CV INVASIVE VASCULAR PROCEDURES Final Result * Basic metabolic panel (08/31/2025 9:33 AM EDT) Only the most recent of2 resultswithin the time period is included. Sodium 141 133 - 145 mmol/L LAB CHEMISTRY METHOD 08/31/2025 10:30 AM [facility] Potassium 4.4 3.5 - 5.5 mmol/L LAB CHEMISTRY METHOD 08/31/2025 10:30 AM [facility] Chloride 108 96 - 110 mmol/L LAB CHEMISTRY METHOD 08/31/2025 10:30 AM [facility] CO2 28 21 - 32 mmol/L LAB CHEMISTRY METHOD 08/31/2025 10:30 AM [facility] Anion Gap 5 3 - 11 LAB CHEMISTRY METHOD 08/31/2025 10:30 AM [facility] Glucose 90 70 - 100 mg/dL LAB CHEMISTRY METHOD 08/31/2025 10:30 AM [facility] BUN 14 5 - 25 mg/dL LAB CHEMISTRY METHOD 08/31/2025 10:30 AM [facility] Creatinine 0.83 0.50 - 1.10 mg/dL LAB CHEMISTRY METHOD 08/31/2025 10:30 AM [facility] eGFR 71 >=60 mL/min/1. 73m2 LAB CHEMISTRY METHOD 08/31/2025 10:30 AM [facility] Comment:Calculation based on the Chronic Kidney Disease Epidemiology Collaboration (CKD-EPI) equation refit without adjustment for race. BUN/Creatinine Ratio 16.9 LAB CHEMISTRY METHOD 08/31/2025 10:30 AM [facility] Calcium 9.6 8.5 - 10.5 mg/dL LAB CHEMISTRY METHOD 08/31/2025 10:30 AM [facility] Blood Venous blood specimen / Unknown Venipuncture / Unknown 08/31/2025 9:33 AM EDT 08/31/2025 9:39 AM EDT Patrick Bhatia MD LAB BLOOD ORDERABLES Final Resu lt [facility] [address] [place] [address], [place] [phone] * Lactate (08/04/2025 8:57 AM EDT) Lactate 1.1 0.4 - 2.0 mmol/L LAB CHEMISTRY METHOD 08/04/2025 9:46 AM EDT [facility] Blood Venous blood specimen / Unknown Venipuncture / Unknown 08/04/2025 8:57 AM EDT 08/04/2025 9:13 AM EDT Mary Mc MD LAB BLOOD ORDERABLES Final Resul t Performing Organization Address [facility]/ZIP Co de Phone Number [facility] [address] [place] [address], [place] [phone] * CT Abdomen Pelvis w Contrast (08/04/2025 7:42 AM EDT) Anatomical Region Laterality Modality Body Computed Tomogra phy 08/04/2025 8:32 AM EDT Impressions 08/04/2025 8:38 AM EDT No obstruction, free air, free fluid or focal inflammatory changes. Significant suprarenal aortic calcification with significant stenoses of the celiac axis and renal arteries suspected. High-grade stenosis versus occlusion of the SMA. No significant change from the prior study. -------- FINAL REPORT -------- Dictated By: Wyatt Atkinson Dictated Date: 08/04/2025 08:32 ET Assigned Physician: Wyatt Atkinson Reviewed and Electronically Signed By: Wyatt Atkinson Signed Date: 08/04/2025 08:38 ET Workstation ID: [id number] Transcribed By: Self Edit Transcribed Date: 08/04/2025 08:32 ET Narrative 08/04/2025 8:38 AM EDT INDICATION: Upper abdominal pain TECHNIQUE: CT scan of the abdomen and pelvis obtained with a total of 90 cc of Isovue-370 administered intravenously without incident. Oral contrast was not administered. Scanner: [employer] 64 slice VCT Dose reduction technique: ASIR (Adaptive statistical iterative reconstruction) and/or AEC (automated exposure control) Dose: total exam DLP 1095 mGY per cm COMPARISON: Compared to multiple prior studies most recent from July 16, 2025. FINDINGS: Lung bases are clear. Bony structures are unremarkable for the patient's age. Liver, spleen, pancreas, adrenal glands and kidneys are within normal limits. Tiny dependent calcified gallstones are unchanged. No CT evidence of acute cholelithiasis. Small hiatal hernia. Stomach was unremarkable. Small bowel loops are grossly within normal limits. Terminal ileum and appendix are normal. Colon normal in course and caliber. Mild left-sided diverticulosis without acute diverticulitis. No free air. Urinary bladder normal. Hysterectomy. No adnexal masses. Dense aortic calcification noted in the suprarenal aorta affecting the origins of the celiac access and superior mesenteric artery as well as bilateral renal arteries without significant stenoses suspected. Focal calcification along the origin of the right common iliac artery with at least 50% stenosis suspected. Procedure Note Wyatt Atkinson MD - 08/04/2025 INDICATION: Upper abdominal pain TECHNIQUE: CT scan of the abdomen and pelvis obtained with a total of 90cc of Isovue-370 administered intravenously without incident. Oralcontrast was not administered. Scanner: [employer] 64 slice VCT Dose reduction technique: ASIR (Adaptive statistical iterativereconstruction) and/or AEC (automated exposure control) Dose: total exam DLP 1095 mGY per cm COMPARISON: Compared to multiple prior studies most recent from June. FINDINGS: Lung bases are clear. Bony structures are unremarkable for the patient's age. Liver, spleen, pancreas, adrenal glands and kidneys are within normallimits. Tiny dependent calcified gallstones are unchanged. No CT evidenceof acute cholelithiasis. Small hiatal hernia. Stomach was unremarkable. Small bowel loops aregrossly within normal limits. Terminal ileum and appendix are normal.Colon normal in course and caliber. Mild left-sided diverticulosis withoutacute diverticulitis. No free air. Urinary bladder normal. Hysterectomy. No adnexal masses. Dense aortic calcification noted in the suprarenal aorta affecting theorigins of the celiac access and superior mesenteric artery as well asbilateral renal arteries without significant stenoses suspected. Focalcalcification along the origin of the right common iliac artery with atleast 50% stenosis suspected. IMPRESSION: No obstruction, free air, free fluid or focal inflammatory changes. Significant suprarenal aortic calcification with significant stenoses ofthe celiac axis and renal arteries suspected. High-grade stenosis versusocclusion of the SMA. No significant change from the prior study. -------- FINAL REPORT -------- Dictated By: Wyatt Atkinson Dictated Date: 08/04/2025 08:32 ET Assigned Physician: Wyatt Atkinson Reviewed and Electronically Signed By: Wyatt Atkinson Signed Date: 08/04/2025 08:38 ET Workstation ID: [id number] Transcribed By: Self Edit Transcribed Date: 08/04/2025 08:32 ET Lester Montejo MD IMG CT PROCEDURES Final Resu lt * CT Head wo Contrast (08/04/2025 7:42 AM EDT) Anatomical Region Laterality Modality Head and Neck Computed Tomogra phy 08/04/2025 8:30 AM EDT Impressions 08/04/2025 8:32 AM EDT No evidence of acute intracranial process on noncontrast head CT. No significant change from the prior study. -------- FINAL REPORT -------- Dictated By: Wyatt Atkinson Dictated Date: 08/04/2025 08:30 ET Assigned Physician: Wyatt Atkinson Reviewed and Electronically Signed By: Wyatt Atkinson Signed Date: 08/04/2025 08:32 ET Workstation ID: [id number] Transcribed By: Self Edit Transcribed Date: 08/04/2025 08:30 ET Narrative 08/04/2025 8:32 AM EDT INDICATION: Weakness Technique: Axial images were obtained from the skull base to the vertex without contrast enhancement. Coronal and sagittal reformats obtained. Scanner: [employer] 64 slice VCT Dose reduction technique: ASIR (Adaptive statistical iterative reconstruction) Dose: total exam DLP 716 mGY per cm Comparison: January 25, 2021. FINDINGS: Intracranial contents: No acute intracranial hemorrhage, midline shift or mass-effect. The ventricles, sulci, sylvian fissures and basilar cisterns are not enlarged. Normal periventricular anatomy, unchanged. There are no abnormal intra or extra-axial fluid collections. Bony structures/soft tissues: Within normal limits for the patient's age. Sinuses: paranasal sinuses are clear. Procedure Note Wyatt Atkinson MD - 08/04/2025 INDICATION: Weakness Technique: Axial images were obtained from the skull base to the vertexwithout contrast enhancement. Coronal and sagittal reformats obtained. Scanner: [employer] 64 slice VCT Dose reduction technique: ASIR (Adaptive statistical iterativereconstruction) Dose: total exam DLP 716 mGY per cm Comparison: January 25, 2021. FINDINGS: Intracranial contents: No acute intracranial hemorrhage, midline shift ormass- effect. The ventricles, sulci, sylvian fissures and basilar cisternsare not enlarged. Normal periventricular anatomy, unchanged. There are noabnormal intra or extra-axial fluid collections. Bony structures/soft tissues: Within normal limits for the patient'obie. Sinuses: paranasal sinuses are clear. IMPRESSION: No evidence of acute intracranial process on noncontrast head CT. No significant change from the prior study. -------- FINAL REPORT -------- Dictated By: Wyatt Atkinosn Dictated Date: 08/04/2025 08:30 ET Assigned Physician: Wyatt Atkinson Reviewed and Electronically Signed By: Wyatt Atkinson Signed Date: 08/04/2025 08:32 ET Workstation ID: [id number] Transcribed By: Self Edit Transcribed Date: 08/04/2025 08:30 ET us Lester Montejo MD IMG CT PROCEDURES Final Resu lt * XR Chest 1 View (08/04/2025 6:41 AM EDT) Only the most recent of2 resultswithin the time period is included. Anatomical Region Laterality Modality Body Radiographic Steph ging 08/04/2025 8:38 AM EDT Impressions 08/04/2025 8:39 AM EDT No evidence of active pulmonary disease. -------- FINAL REPORT -------- Dictated By: Wyatt Atkinson Dictated Date: 08/04/2025 08:38 ET Assigned Physician: Wyatt Atkinson Reviewed and Electronically Signed By: Wyatt Atkinson Signed Date: 08/04/2025 08:39 ET Workstation ID: [id number] Transcribed By: Self Edit Transcribed Date: 08/04/2025 08:38 ET Narrative 08/04/2025 8:39 AM EDT INDICATION: Nausea, weakness FINDINGS: Single portable AP view of the chest obtained. Compared to multiple prior studies most recent from July 16, 2025. Lung arellano are clear. Heart normal in size and shape. Bony structures are grossly intact and normal for the patient's age. Procedure Note Wyatt Atkinson MD - 08/04/2025 INDICATION: Nausea, weakness FINDINGS: Single portable AP view of the chest obtained. Compared tomultiple prior studies most recent from July 16, 2025. Lung arellano are clear. Heart normal in size and shape. Bony structures are grossly intact and normal for the patient's age. IMPRESSION: No evidence of active pulmonary disease. -------- FINAL REPORT -------- Dictated By: Wyatt Atkinson Dictated Date: 08/04/2025 08:38 ET Assigned Physician: Wyatt Atkinson Reviewed and Electronically Signed By: Wyatt Atkinson Signed Date: 08/04/2025 08:39 ET Workstation ID: [id number] Transcribed By: Self Edit Transcribed Date: 08/04/2025 08:38 ET us Lester Montejo MD IMG XR PROCEDURES Final Resu lt * (ABNORMAL) Urinalysis with reflex microscopic (08/04/2025 4:45 AM EDT) Only the most recent of2 resultswithin the time period is included. Specific [place] Urine 1.006 1.003 - 1.030 LAB URINALYSIS - AUTOMATED METHOD 08/04/2025 5:22 AM EDT [facility] pH, Urine 7.5 5.0 - 8.0 pH LAB URINALYSIS - AUTOMATED METHOD 08/04/2025 5:22 AM [facility] Leukocytes, Urine Moderate(A) Negative LAB URINALYSIS - AUTOMATED METHOD 08/04/2025 5:22 AM [facility] Nitrite, Urine Negative Negative LAB URINALYSIS - AUTOMATED METHOD 08/04/2025 5:22 AM [facility] Protein, Urine Negative <=Trace mg/dL LAB URINALYSIS - AUTOMATED METHOD 08/04/2025 5:22 AM [facility] Glucose, Urine Negative Negative mg/dL LAB URINALYSIS - AUTOMATED METHOD 08/04/2025 5:22 AM [facility] Ketones, Urine Negative Negative mg/dL LAB URINALYSIS - AUTOMATED METHOD 08/04/2025 5:22 AM [facility] Urobilinogen , Urine 0.2 0.2 - 1.0 mg/dL LAB URINALYSIS - AUTOMATED METHOD 08/04/2025 5:22 AM [facility] Bilirubin, Urine Negative Negative LAB URINALYSIS - AUTOMATED METHOD 08/04/2025 5:22 AM [facility] Blood, Urine Negative Negative LAB URINALYSIS - AUTOMATED METHOD 08/04/2025 5:22 AM [facility] RBC, Urine 4.6(H) 0 - 4 /HPF LAB URINALYSIS - AUTOMATED METHOD 08/04/2025 5:22 AM [facility] WBC, Urine 10(H) 0 - 4 /HPF LAB URINALYSIS - AUTOMATED METHOD 08/04/2025 5:22 AM [facility] Squamous Epithelial, Urine 7 0 - 60 /LPF LAB URINALYSIS - AUTOMATED METHOD 08/04/2025 5:22 AM [facility] Bacteria, Urine Negative Negative /HPF LAB URINALYSIS - AUTOMATED METHOD 08/04/2025 5:22 AM EDT [facility] Hyaline Casts, Urine 0.4 0 - 3 /LPF LAB URINALYSIS - AUTOMATED METHOD 08/04/2025 5:22 AM EDT [facility] Urine Urine specimen obtained by clean catch procedure / Unknown Non-blood Collection / Unknown 08/04/2025 4:45 AM EDT 08/04/2025 4:55 AM EDT us Lester Montejo MD LAB URINE ORDERABLES Final R esult [facility] [address] [place] [address], [place] [phone] * NM LEXISCAN STRESS TEST W/ MYOCARDIAL PERFUSION (07/30/2025 3:50 PM EDT) Exercise/injec tion duration (min) 0 CV PACS STRESS Exercise/injec tion duration (sec) 48 CV PACS STRESS Peak SBP 165 mmHg CV PACS STRESS Peak DBP 60 mmHg CV PACS STRESS Peak HR 97 bpm CV PACS STRESS Baseline HR 56 bpm CV PACS STRESS Baseline SBP 166 mmHg CV PACS STRESS Baseline DBP 62 mmHg CV PACS STRESS Estimated workload 1.0 METS CV PACS STRESS Percent HR 69 % CV PACS STRESS Rate Pressure Product 16,005.0 mmHg*bpm CV PACS STRESS Target HR 119 bpm CV PACS STRESS TID 1.10 CV PACS STRESS Nuc Stress EF 72 % CV PAC S STRESS Nuc Rest EF 77 % CV PACS STRESS BSA 1.69 m2 CV PACS STRESS Anatomical Region Laterality Modality Nuclear Medicine 07/30/2025 1:56 PM EDT 07/30/2025 2:37 PM EDT Impressions 08/02/2025 9:25 AM EDT Normal Regadenoson stress test with nuclear imaging. No chest pain or EKG changes consistent with ischemia. Nuclear imaging revealed no significant perfusion defects . There is a normal TID ratio. Gated SPECT imaging was performed and revealed an LVEF of 77 %. Narrative 08/02/2025 9:25 AM EDT Stress Findings A pharmacological stress test was performed using regadenoson, 0.4 mg IV over 10-15 seconds, followed by radiopharmacological injection 10 seconds post infusion. Total stress time was 0 min and 48 sec. The patient reached the end of the protocol. Blood pressure demonstrated a normal response. Heart rate demonstrated a normal response. The patient reported no symptoms during the stress test. ECG 79-year-old female with a past medical history significant for coronary artery disease with stenting to RCA and LAD, peripheral artery disease, hypertension, hyperlipidemia, who has been experiencing increased dyspnea on exertion, into rule out ischemia. Not on cardiac medications during testing. Baseline EKG: Sinus bradycardia with incomplete right bundle branch block. There were no arrhythmias during stress. There were no arrhythmias during recovery. Nondiagnostic in the setting of a pharmacological nuclear stress test. Nuclear Study Quality Study technique: MPI, SPECT, multi, rest and stress, 1 day and gated. Overall image quality is good. CT attenuation correction was utilized. No radiopharmaceutical dose was extravasated. Stress Function Comments Stress ejection fraction is 72%. Rest Function Comments Resting ejection fraction was 77%. us Santi Becker MD CV STRESS PROCEDURES Final Resu lt * CT Abdomen Pelvis wo Contrast (07/16/2025 [...] Signed Date: 07/16/2025 10:23 ET Workstation ID: [id number] Transcribed By: Self Edit Transcribed Date: 07/16/2025 [...] Signed Date: 07/16/2025 10:23 ET Workstation ID: [id number] Transcribed By: Self Edit Transcribed Date: 07/16/2025 10:17 ET us Jian Fay MD IMG CT PROCEDURES Final Res ult * Dee urine culture tube (07/16/2025 1:59 AM EDT) Extra Tube Hold for add-ons. 07/16/2025 4:01 AM EDT [facility] Comment:Auto resulted. Urine Urine specimen obtained by clean catch procedure / Unknown Non-blood Collection / Unknown 07/16/2025 1:59 AM EDT 07/16/2025 2:59 AM EDT us Adriel Nguyen MD LAB URINE ORDERABLES Final Resul t [facility] [address] [place] [address], [place] [phone] * CT Angio Head/Neck wo and/or w [...] results in mild less than 50% stenoses. Zpox-yz-ekaydeiu stenoses proximal left vertebral artery just distal [...] bifurcations results inmild less than 50% stenoses. [id number]-wp-kwgpnnno stenoses proximal leftvertebral artery just distal to [...] Nguyen MD IMG CT PROCEDURES Final Result from Last 3 Months Insurance [facility] MEDIC[facility] Member Subscriber Plan / Payer (Ef fective 1899-Present) Name:Amee Hartman Relation to Subscriber:Self Name:Amee Hartman Payer ID:[id number] Group ID:[id number] Type:Not on file Address: [facility] [address] [address] [facility] Member Subscriber Plan / Payer (Ef fective 1899-Present) Name:Amee Hartman Relation to Subscriber:Self Name:Amee Hartman Payer ID:[id number] Group ID:[id number] Type:Not on file Address: [address] [place] [address] [facility] [employer] Member Subscriber Plan / Payer ( fective 2024-Present) Name:Amee Hartman Relation to Subscriber:Self Name:Amee Hartman Payer ID:[id number] Group ID:[id number] Type:Not on file Address: [address] [place] [address] Advance Directives * Full Code - Default (Latest Code Status on File) Date Activated Date Inactivated Comments 08/31/2025 11:03 AM 08/31/2025 7:11 PM This is ord er is used when code status has not been discussed with the patient, or code status is otherwise unknown/unconfirmed To update the patient's code status, place a code status order. Do not modify or discontinue any currently active code status orders. Care Teams Munitions Handler Relationship Specialty Start Date End Date Andriy Scott [address] [place], [place] PCP - General Internal Medicine 12/15/20
--- OUTSIDE RECORDS SUMMARY | 2025-09-16 10:39 | XMS_ITS | Encounter Summary ---
Author Organization [employer] Address [address] [facility] [address] [place] [address] Care Team Providers Care Health Advisor Name Role Phone Andriy Scott MD Primary Care Prov ider Encounter Details Date Type Department Care Team ([facility] Contact Info) Description 09/06/2025 Orders Only [facility] [address] [place], [place] [phone] ProviderKaren MD Social History Tobacco Use Types [...] Upcoming Encounters Date Type Department Care Team ([facility] st Contact Info) Description 09/21/2025 2:15 PM EDT Telemedicine [facility] [address] [place] [address] Andriy Scott MD [address] [place] [address] 09/27/2025 11:00 AM EST Clinical Support [facility] [address] [place] [address] 10/12/2025 10:45 AM EST Office Visit [facility] [address] [place] [id number] Andriy Scott MD [address] [place] [address] documented as of this encounter Goals Goal [...] Date/Time Associated Diagnosis Comments ECG 12-LEAD Routine 09/05/2025 3:52 PM EDT XR CHEST 2 VIEWS Routine 09/05/2025 2:57 PM EDT documented in this encounter Results * ECG 12 lead (09/05/2025 3:52 PM EDT) us Historical Provider ECG ORDERABLES Final Res ult * XR Chest 2 Views (09/05/2025 2:57 PM EDT) Anatomical Region Laterality Modality Chest Radiographic Steph ging us Historical Provider IMG XR PROCEDURES Final R esult documented in this encounter Visit Diagnoses Not on filedocumented in this encounter Additional Health Concerns Assessment Noted Time PHQ-9 Depression Total Score: 3 08/19/20 25 9:50 AM EDT documented as of this encounter Care Teams Health Advisor Relationship Specialty Start Date End Date WinklerAndriy Gonzalez MD [address] [place] [phone] PCP - General Internal Medicine 04/05/20 documented as of this encounter
--- OUTSIDE RECORDS SUMMARY | 2025-09-16 10:39 | XMS_ITS | Encounter Summary ---
Author Organization [employer] Address [address] [place] [address] Care Team Providers Care Foiling Machine Operator Name Role Phone Andriy Scott MD Primary Care Prov ider Reason for Visit * Reason Onset Date Comments Medication Question 08/31/2025 Encounter Details Date Type Department Care Team ([facility] st Contact Info) Description 08/31/2025 Telephone [facility] [address] [place] [address] Andriy Scott MD [address] [place] [address] Medication Question Social History Tobacco Use Types [...] housing situation today? I have adizehra wiggins 08/19/[address] you [...] encounter Miscellaneous Notes * Telephone Encounter - Juan José Cruz - 08/31/2025 4:25 PM EDT [facility] wanting to do a med reconciliation . documented in this encounter Plan of Treatment Upcoming Encounters Date Type Department Care Team (Late st Contact Info) Description 09/21/2025 2:15 PM EDT Telemedicine [facility] [address] [place] [address] Andriy Scott MD [address] [place] [address] 09/27/2025 11:00 AM EST Clinical Support [facility] [address] [place] [address] 10/12/2025 10:45 AM EST Office Visit [facility] [address] [place] [address] Andriy Scott MD [address] [place] [address] documented as of this encounter Goals Goal [...] documented as of this encounter Care Teams Foiling Machine Operator Relationship Specialty Start Date End Date Andriy Scott MD [address] [place] [id number] PCP - General Internal Medicine 04/05/20 documented as of this encounter
[2025-09-22 11:04] LABS: Metanephrine, Free 33 pg/mL (<=57); Normetanephrines, Free 129 pg/mL (<=148); Total Metanephrine, Free 162 pg/mL (<=205)
[2025-09-29 13:18] LABS: Cortisol, Free 0.56 mcg/dL
== END 2025-09-16 09:26 | disposition home or self-care (01) ==
LOC: HO.CHCLDS 09:25
PROVIDERS: PCP Internal Medicine Nephrology; Visit Provider Internal Medicine Nephrology
DX: I12.9 Hypertensive chronic kidney disease with stage 1 through stage 4 chronic kidney disease, or unspecified chronic kidney disease (principal); N18.2 Chronic kidney disease, stage 2 (mild)
CPT/HCPCS: 36415; 82088; 82530; 83835; 84244

== ENCOUNTER 2025-10-25 08:29 | Outpatient (REF) | payer OTHER, SELFPAY ==
--- OUTSIDE RECORDS SUMMARY | 2025-10-25 08:50 | XMS_ITS | Data Portability ---
Author Organization [employer] 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 I have reviewed and agree with the Assessment and Plan as documented by the Assistant Front Desk Manager. Patient given the opportunity to ask questions. [...] She otherwise feels at her baseline. Per head filter press tender on the scene, vital signs are stable. [...] particularly fever chills lightheadedness altered mental status [email or web address] Not available 01/20/2025 16:47:37 07/14/2025 07/14/2025 As noted, we wer e called to see this patient regarding concerns of Hypertension and abdominal pain. Evaluation in the field was performed by my head filter press tender colleague, as noted above, I provided real-time direction and supervision for this visit. patient has been having high blood pressure. She states that she is taking medicine but unable to say what she is taking. She's also been having left lower quadrant abdominal pain for the past few days. She states had similar pain in the past and was prescribed MiraLAX. Medic states of the patient has no tenderness in the left lower quadrant. Reviewing the patient's chart she was seen in December and had a CT scan for similar pain and was found to have diverticulosis without diverticulitis. Patient does not think she's ever been placed on antibiotics for this pain in the past. Patient did have a bowel movement earlier today. Pain may be secondary to constipation our patient does not feel that she is constipated. Patient is also noted to be hypertensive. She's denying any headache, chest pain, shortness of breath. Her Cr is normal. After a long detailed discussion with the patient through an translator and interpreter and with the patient's grandson it appears the patient's Valsartan was decreased from 80 mg BID to 80 mg daily on July 02. She does not know why the medication was decreased. She is also on carvedilol 6.25 mg daily and doxazosin 25 mg daily. Further reviewing her chart it does appear the patient's systolic blood pressure will go from low 100s to > 200. Patient's grandson states that the patient manages her own blood pressure medication and monitoring. I've encouraged him and his family to assist the patient with keeping a log of her blood pressure twice a day. We will also restart her valsartan 80 mg in the evening. Plan will be to have the patient reevaluated on Saturday after she had had a couple of days of blood pressure monitoring and addition of valsartan. We will recheck her blood pressure and also reevaluate her left lower quadrant abdominal pain. Patient states that she did go to the emergency department this weekend and was told to call her primary care physician's office on Saturday. She says that she did call but does not know what happened after. I've encouraged the grandson to call her primary care physician's office to make a follow-up appointment. Impression: Hypertension and abdominal pain Plan: Follow-up PCP Primary care, consider medication mamagement Disposition: We discussed the diagnostic uncertainty of home visits and the risk associated with this. In this case, the patient and I felt this to be an acceptable and reasonable amount of risk given the benefit of avoiding an ED visit. We discussed the need to seek care urgently/emergentl y in the setting of any new or worsening serious symptoms, particularly chest pain, shortness of breath, worsening abdominal pain, headache. [email or web address] Not available 07/14/2025 12:45:17 08/06/2025 08/06/2025 service called for abd pain 07/04 pain found 79 jaziel with hx HTN KIKA PAD T2DM diverticulosis c/o 1 wk return of left upper and lower quadrant abd pain similar to sx of prior [facility] visit currently 09/03 2d prior evaluated by CT AP with IV for abd pain - neg for diverticulitis, stable prior noted aortic stenosis, relief sx from PO antiacid VSS reported exam abd non-distended, tender left upper and lower quad #Abd pain marked improvement in pain 07/04->02/01 with trial GI cocktail and IV famotidine review of medications, pt no longer prescribed H2B -short supply H2B -f/up with PCP regarding cessation of H2B, importance of continuing vs discontinue -notify service if worsening -otherwise return to ptimary team [email or web address] Not available 08/06/2025 22:37:52 09/08/2025 09/08/2025 I have reviewed and agree with the assessment and plan as documented by the head filter press tender. I provided real-time medical direction for this encounter and was immediately available to provide additional phone-based assistance as needed. 79F presenting with episode of chest pain and BP 220/110. Pt was recently seen in ED for similar episode on Saturday. Currently on carvedilol. Pt with no active chest pain however endorses it earlier today. Given vital signs and concern for cardiac event, recommend pt seen in ED. She is agreeable. We discussed the diagnostic uncertainty of home visits and the risk associated with this. Pt agreeable for ED transfer. [email or web address] Not available 09/08/2025 21:28:36 09/28/2025 09/28/2025 I provided real -time medical direction via phone for this encounter, and was available for additional phone based assistance as needed. I have reviewed and agree with the Assessment and Plan as documented by the Assistant Front Desk Manager. We discussed the diagnostic uncertainty of home visits and the risk associated with this. In this case the patient and I felt this to be an acceptable and reasonable amount of risk given the benefit of avoiding an ED visit. The patient given the opportunity to ask questions via the Danish language line translator and interpreter. Advised to call us if she feels she needs another visit and to get an appointment with her PCP as soon as possible. She reported that she has been having trouble getting an appointment with her PCP that she keeps calling and being told they will call her back. Out reach sent to health care recruiter via [facility] to assist in obtaining an appointment. Advised if develops CP/severe SOB/turning blue/uncontrolled n/v/d / AMS/ syncope/ severe headache/ any vision changes, speech changes /new focal weakness or numbness to call 911- she verbalized understanding of instructions [email or web address] Not available 09/28/2025 18:35:28 Plan of Treatment Reminders Order Date Submit Date Provider Last Modified By Organization Details Last Modified Time Details Appointments None recorded. Lab None recorded. Referral None recorded. Procedures None recorded. Surgeries None recorded. Imaging None recorded. Medication Orders nifedipine ER 30 mg tablet,exte nded release 2024 025 [facility], [address] [place] [address], [id number], 12:07:57 famotidine (PF) 20 mg/2 mL intravenous solution 2024 025 [email or web address] [facility], [address], [place], [id number], 18:33:47 famotidine 40 mg tablet 2024 025 [id number], [address] [facility], [place], [address], 5 05:02:14 aluminum-ma g hydroxide-s imethicone 200 mg-200 mg-20 mg/5 mL oral susp 2024 025 [email or web address] [id number], [address] [place], [address], 18:33:47 Lidocaine Viscous 2 % mucosal solution 2024 025 [email or web address] [facility] #[id number], [address] [place], [address], 18:33:47 valsartan 80 mg tablet 2024 025 [facility], [address], [place], [place], [id number], 05:01:49 Patient TargetsNo targets recorded. Patient InstructionsNo instructions recorded. Reason for Referral None Reported. Problems Name Problem SNOMED Code Status Onset Date Resolution Date Notes Provider Name and Address Organization Details Recorded Time Obstructive sleep apnea syndrome 94080433 Active 2014 Russ Chandler MD [address] [place] [address],[address], [place], [address], [employer] 17:35:09 Primary gonarthrosi s, bilateral 046057899 Active 2018 Russ Chandler MD [address] [place] [address],[address], [place], [address], [employer] 17:34:47 Peripheral vascular disease 899258769 Active 2020 Russ Chandler MD [address] [place] [address],[address], [place], [address], [employer] 17:34:52 Essential hypertensio n 06952736 Active 2020 Russ Chandler MD [address] [place] [address],[address], [place], [address], [employer], [employer] 17:28:59 Peripheral arterial disease 686255813 Active 2020 Russ Chandler MD [address] [place] [address],[address], [place], [address], [employer] 5 17:35:03 Type 2 diabetes mellitus 50254794 Active 2023 Russ Chandler MD [address] [place] [address],[address], [place], [address] [place] [address] 0, [employer] 5 17:28:46 Stenosis of left subclavian artery [id number] 4101 Active 2024 Russ Chandler MD [address] [place] [address],[address], [place], [address] [place] [address], [employer] 5 17:28:54 Problem Notes None recorded. Medical Equipment None Reported. Allergies Allergen ID Allergen Name Allergen Category Reaction Reaction Severity Criticality Documentation Date Start Date Code Code System Note Provider Name and Address Organization Details Recorded Time 28380 lisinopri l medicatio n Not available Not available Not available 01/20/2025 13239 [facility] 5 13:06:14 11875 naproxen medicatio n Not available Not available Not available 08/06/2025 7258 RxNorm [facility] 16:26:05 31637 penicilli n G Not available rash Not available low 09/28/20252020 7980 RxNorm Rhina Simons MD [address] [place] [address],[address], [place], [address] [place] [address], [employer] 18:11:25 67790 Iodinated contrast media (substanc e) medicatio n Not available Not available Not available 09/28/2025 36655 2004 SNOMED Not [facility] 19:21:47 61270 red (food color) food,medi cation Not available Not available Not available 09/28/2025 Rhina Simons MD [address] [place] [address],[address], [place], [address] [place] [address] 0, [employer] 5 18:12:00 1971 Product containin g penicilli n (product) medicatio n Not available Not available Not available 01/21/2023 74237 8001 SNOMED Not Available [facility] - production 4 03:34:36 1971 amlodipin e medicatio n Not available Not available Not available 01/21/2023 17524 RxNorm Not Available [facility] - production 5 13:06:14 1972 Adacel medicatio n Not available Not available Not available 01/21/2023 98915 8 RxNorm Rhina Simons MD [address] [facility],[address], [place], [address] [place] [address] [employer] 3 12:45:04 Medications Name Sig Start Date Stop Date Status Note LastModified by Organization Details LastModified Time medbox status USE DIRECTED active Not Available Not Available No t Available multivitami n tablet TAKE ONE TABLET EVERY MORNING active Not Available Not Available No t Available celecoxib 200 mg capsule TOME 1 C PSULA POR V A ORAL DOS VECES AL D A active Not Available Not Available No t Available metformin 500 mg tablet TAKE ONE TABLET IN THE MORNING AND EVENING active Not Available Not Available No t Available carvedilol 6.25 mg tablet TAKE ONE TABLET IN THE MORNING AND EVENING WITH MEALS active Not Available Not Available No t Available clindamycin HCl 300 mg capsule TAKE TWO CAPSULES ONE HOUR BEFORE PROCEDURE 08/06 completed Not Available Not Available Not Available cetirizine 10 mg tablet TAKE ONE TABLET EVERY NIGHT AT BEDTIME NEEDED active Not Available Not Available No t Available fluconazole 150 mg tablet TAKE ONE TABLET ONCE 08/06 completed Not Available Not Available Not Available ketotifen 0.025 % (0.035 %) eye drops PLACE ONE DROP IN THE AFFECTED EYE(S) TWICE DAILY NEEDED FOR ALLERGY active Not Available Not Available No t Available clarithromy huang 500 mg tablet TAKE ONE TABLET BY MOUTH TWICE DAILY FOR 14 DAYS 08/06 completed Not Available Not Available Not Available sucralfate 1 gram tablet TAKE ONE TABLET THREE TIMES DAILY IN THE MORNING, EVENING AND BEDTIME active Not Available Not Available No t Available famotidine 40 mg tablet Take 1 tablet every day by oral route. 09/20 completed Not Available Not Available Not Available isosorbide mononitrate ER 30 mg tablet,exte nded release 24 hr TAKE ONE TABLET EVERY MORNING active Not Available Not Available No t Available cyanocobala min (vit B-12) 1,000 mcg tablet TAKE ONE TABLET EVERY MORNING active Not Available Not Available No t Available valsartan 80 mg tablet Take 1 tablet every day by oral route for 14 days. 08/04 completed Not Available Not Available Not Available metronidazo le 500 mg tablet TAKE ONE TABLET BY MOUTH THREE TIMES DAILY FOR 14 DAYS 08/06 completed Not Available Not Available Not Available nifedipine ER 30 mg tablet,exte nded release Take 1 tablet every day by oral route for 30 days. 2024 active Not Available Not Available Not Avai lable clopidogrel 75 mg tablet TAKE ONE TABLET EVERY MORNING active Not Available Not Available No t Available chlorthalid one 25 mg tablet TAKE ONE-HALF TABLET EVERY MORNING active Not Available Not Available No t Available sulfamethox azole 800 mg-trimetho prim 160 mg tablet TAKE ONE TABLET TWICE DAILY FOR FOUR DAYS active Not Available Not Available No t Available aspirin 81 mg tablet,brian yed release TAKE ONE TABLET EVERY MORNING active Not Available Not Available No t Available spironolact one 25 mg tablet TAKE ONE TABLET EVERY MORNING active Not Available Not Available No t Available carvedilol 3.125 mg tablet TAKE ONE TABLET IN THE MORNING AND EVENING WITH MEALS active Not Available Not Available No t Available alprazolam 0.5 mg tablet TAKE ONE TABLET ONE-HALF HOUR BEFORE travel active Not Available Not Available No t Available Deep Sea Nasal 0.65 % spray aerosol USE ONE SPRAY IN EACH NOSTRIL NEEDED FOR NASAL CONGESTIO N active Not Available Not Available No t Available famotidine 20 mg tablet TAKE ONE TABLET TWICE DAILY IN THE MORNING AND AT BEDTIME active Not Available Not Available No t Available lidocaine 5 % topical patch APPLY 1 PATCH TO SKIN. LEAVE ON FOR 12 HOURS, THEN OFF FOR 12 HOURS DIRECTED. active Not Available Not Available No t Available nitroglycer in 0.4 mg sublingual tablet DISSOLVE 1 TABLET UNDER THE TONGUE EVERY 5 MINUTES NEEDED FOR CHEST PAIN. DO NOT EXCEED A TOTAL OF 3 DOSES IN 15 MINUTES. active Not Available Not Available No t Available omeprazole 20 mg capsule,del ayed release TAKE ONE CAPSULE BY MOUTH TWICE DAILY active Not Available Not Available [...] Not Available Not Available No t Available mupirocin 2 % topical ointment APPLY TO THE AFFECTED AREA(S) THREE TIMES DAILY FOR 10 DAYS active Not Available Not Available No t Available nystatin 100,000 unit/gram topical powder APPLY TO THE AFFECTED AREA(S) TWICE DAILY active Not Available Not Available No t Available ketoconazol e 2 % topical cream APPLY TO THE AFFECTED AREA(S) ONCE DAILY active Not Available Not Available No t Available fluticasone propionate 50 mcg/actuati on nasal spray,suspe nsion INHALE 1 SPRAY IN EACH NOSTRIL ONCE DAILY active Not Available Not Available No t Available dicyclomine 10 mg capsule TAKE 1 CAPSULE BY MOUTH 3 TIMES DAILY NEEDED FOR ABDOMINAL CRAMPING active Not Available Not Available No t Available loratadine 10 mg tablet TOME ADIN TABLETA TODOS LOS D CUANDO SEA NECESARIO active Not Available Not Available No t Available spironolact one 50 mg tablet TAKE ONE TABLET EVERY MORNING active Not Available Not Available No t Available doxazosin 2 mg tablet TAKE ONE TABLET EVERY MORNING active Not Available Not Available No t Available Ventolin HFA 90 mcg/actuati on aerosol inhaler INHALE 2 PUFFS BY MOUTH EVERY 4-6 HOURS NEEDED active Not Available Not Available No t Available oxycodone 5 mg tablet TAKE ONE TABLET EVERY 4 HOURS NEEDED FOR SEVERE PAIN active Not Available Not Available No t Available valsartan 160 mg tablet TAKE ONE TABLET IN THE MORNING AND EVENING active Not Available Not Available No t Available cholecalcif jean (vitamin D3) 25 mcg (1,000 unit) capsule TOME 1 C PSULA POR V A ORAL TODOS LOS D active Not Available Not Available No t Available valsartan 40 mg tablet TAKE 1 TABLET EVERY MORNING active Not Available Not Available No t Available cyclobenzap rine 5 mg tablet TAKE ONE TABLET BY MOUTH THREE TIMES DAILY active Not Available Not Available No t Available rosuvastati n 20 mg tablet TAKE ONE TABLET EVERY NIGHT AT BEDTIME active Not Available Not Available No t Available rosuvastati n 40 mg tablet TAKE ONE TABLET AT BEDTIME active Not Available Not Available No t Available lactulose 10 gram/15 mL oral solution TAKE 30 ML BY MOUTH TWICE DAILY active Not Available Not Available No t Available Flovent HFA 110 mcg/actuati on aerosol inhaler INHALE 1 PUFF BY MOUTH TWICE DAILY. RINSE MOUTH AFTER USE active Not Available Not Available No t Available Asmanex Twisthaler 220 mcg/actuati on(120 doses) breath activated inhlr INHALE ONE PUFF TWICE DAILY, RINSE MOUTH AFTER USE active Not Available Not Available No t Available calcium 500 mg (as carbonate)- vit D3 10 mcg (400 unit) chewable tablet CHEW ONE TABLET EVERY MORNING active Not Available Not Available No t Available cholecalcif jean (vitamin D3) 25 mcg (1,000 unit) tablet [...] Available diclofenac 1 % topical gel APPLY 4 GRAMS TOPICALLY CUATRO VECES AL D A active Not Available Not Available No t Available cholecalcif jean (vitamin D3) 50 mcg (2,000 unit) capsule TAKE ONE CAPSULE EVERY MORNING active Not Available Not Available No t Available Senexon-S 8.6 mg-50 mg tablet TAKE 1 TABLET BY MOUTH 3 TIMES DAILY NEEDED FOR CONSTIPAT ION active Not Available Not Available No t Available ferrous gluconate 324 mg (37.5 mg iron) tablet TAKE ONE TABLET EVERY OTHER DAY IN THE MORNING active Not Available Not Available No t Available Boudreauxs Butt Paste 40 % topical ointment APPLY 1 GRAM TO BUTTOCKS 4 TIMES A DAY NEEDED. active Not Available Not Available No t Available Linzess 145 mcg capsule TAKE ONE CAPSULE EVERY MORNING BEFORE BREAKFAST active Not Available Not Available No t Available Easy Touch Twist Lancets 33 gauge USE TO TEST BLOOD SUGAR TWICE DAILY active Not Available Not Available No t Available Trulicity 0.75 mg/0.5 mL subcutaneou s pen injector INJECT ONE PEN (=0.75MG) SUBCUTANE OUSLY ONCE A WEEK DIRECTED active Not Available Not Available No t Available Arnuity Ellipta 200 mcg/actuati on powder for inhalation INHALE 1 PUFF DAILY AT THE SAME TIME EACH DAY RINSE MOUTH AFTER USE active Not Available Not Available No t Available Arnuity Ellipta 100 mcg/actuati on powder for inhalation INHALE ONE PUFF DAILY active Not Available Not Available No t Available Repatha SureClick 140 mg/mL subcutaneou s pen injector INJECT ONE ML SUBCUTANE OUSLY EVERY 14 DAYS active Not Available Not Available No t Available Daily-Leonarda (with folic acid) 400 mcg tablet TOME ADIN TABLETA TODOS LOS D active Not Available Not Available No t Available [employer]ron Blood Pressure Monitor-3 Series kit Check blood pressure on arm as directed active Not Available Not Available No t Available Vitals Date Recorded Oxygen saturation Body temperature Body weight Respiratory rate Heart rate Body height Systolic And Diastolic Provider Name and Address Organization Details Last Updated DateTime 5 98 % 97.4 [degF] 10253.8 g 14 /min 80 /min 152.4 cm 185/70 mm[Hg] Not Available [employer] - [employer] 5 16:37:03 Date Recorded Respiratory rate Body temperature Body height Body weight Heart rate Oxygen saturation Systolic And Diastolic Systolic And Diastolic Systolic And Diastolic Provider Name and Address Organization Details Last Updated DateTime 5 14 /min 98.5 [degF] 157.48 cm 34156.8 g 65 /min 98 % 194/75 mm[Hg] 197/75 mm[Hg] 197/75 mm[Hg] Not Available [employer] 5 12:10:42 Date Recorded Respiratory rate Body temperature Oxygen saturation Heart rate Systolic And Diastolic Provider Name and Address Organization Details Last Updated DateTime 5 18 /min 98.3 [degF] 96 % 63 /min 158/82 mm[Hg] Not Available [employer] 5 17:24:42 Date Recorded Body temperature Oxygen saturation Respiratory rate Heart rate Systolic And Diastolic Provider Name and Address Organization Details Last Updated DateTime 5 98.7 [degF] 99 % 16 /min 82 /min 222/100 mm[Hg] Not Available [employer] 5 21:19:36 Date Recorded Body temperature Oxygen saturation Heart rate Respiratory rate Systolic And Diastolic Provider Name and Address Organization Details Last Updated DateTime 5 98 [degF] 98 % 65 /min 18 /min 178/77 mm[Hg] Not Available [employer] 5 18:09:59 Social History None recorded. Functional Status None recorded. Mental Status None recorded. Family History Nothing Reported. Medical History No medical history recorded. Gynecological HistoryNo gynecological history recorded. Obstetrics History GPAL:G 0 P 0 0 0 0 Past Encounters Encounter ID Performer Location Encounter Start Date Encounter Closed Date Diagnosis/Indication Diagnosis SNOMED-CT Code Diagnosis ICD10 Code Diagnosis IMO Codes Diagnosis Note [id number] Rhina Simons MD [facility] [address] [place] [phone] 01/21/2023 12:33:47 01/23/2023 12:29:15 Paresthesia 19759638 R20.2 likely a combinatio n of neuropathy [...] 911 if symptoms worsen Thoracic back pain 48015 8004 M54.6 would benefit from imaging- [place] [id number] JALYN FLORES MD [facility] [address] [place] [phone] 11/29/2023 12:21:25 11/30/2023 15:51:28 Low blood pressure 14114742 I95.9 [id number] DESHAWN LIRA MD [facility] [address] [place] [phone] 03/19/2024 11:27:48 03/19/2024 18:30:31 Candidal intertrigo 598864171 B37.2 Evaluation in the field was performed by my head filter press tender colleague, as noted above, I provided real-time direction and supervisio n for this visit. The evaluation revealed Hypertensi on, Diabetes, Heart Disease, Hypertensi on, COPD/Asthm a, Other with hx of candidal intertrigo x 2 prior. Reports rash and pruritis under her breasts and groin area . Pt reports that she is flying to [place] on 04/03 and her PCP had no appointmen t. Denies fever, chills, CP, SOB, N/V/D, UTI symptoms. VSSBG 100 this am per patient report Impression :Candidal intertrigo Plan:Diflu can 150 mg PO [id number] zole 2 % dailyNysta tin powder BID after the ketoconazo le is absorbed to keep the area dryPt advised re : Daily cleansing of intertrigi nous skin with a mild cleanser followed by drying of affected area with a chairman president and chief executive officer on a cool settingAer ation of affected area when feasibleUs e of absorbent material or clothing, such as cotton or bejarano wool, to separate skin in folds especially when in [place] Primary care, consider__ _ Dispositio n: We [...] BG >250, N/V or any other concerns. [id number] Dottie Clifford MD [facility] [address] [place] [phone] 07/17/2024 16:06:35 07/17/2024 20:24:34 Dizziness 216969758 R42 As noted, we were called to see this patient regarding concerns of dizziness and hypotensio n. Evaluation in the field was performed by my head filter press tender colleague, as noted above, I provided real-time [...] changes to consciousn ess, chest pain, dyspnea. [id number] Betzy Jackson MD [facility] [address] [place] [phone] 11/29/2024 16:55:51 11/30/2024 00:23:38 COVID-19 [id number] U07.1 [id number] DESHAWN LIRA MD Main - [address] [address] 12/03/2024 20:46:57 12/04/2024 12:55:39 Worried well [id number] Z71.1 Evaluation in the field was performed by my head filter press tender colleague, as noted above, I provided real-time [...] vomiting, diarrhea or any other concerns . [id number] Betzy Jackson MD [place] [address] 01/20/2025 16:37:01 01/21/2025 00:38:39 Essential hypertension [id number] I10 [id number] Jay Sow MD [place] [address] 0 07/14/2025 11:42:51 07/14/2025 14:41:30 Essential hypertension [id number] I10 [id number] Russ Chandler MD [place] [address] 0 08/06/2025 17:24:36 08/07/2025 00:33:49 Bile-induced gastritis [id number] K29.60 [id number] Jessica Moore MD [place] [id number] 0 09/08/2025 21:19:32 09/09/2025 12:56:09 Chest pain [id number] R07.89 [id number] Rhina Simons MD [place] [address] 0 09/28/2025 18:09:54 09/28/2025 20:38:01 Essential hypertension [id number] I10 08827 Patient had labs done on 1016 H&H 11.7/37.1, electrolyt es normal GFR 66 creatinine 0.88. Advised low salt diet- watch Na content of pre packaged food which medic noticed in the home. Patient has been on nifedipine 60 mg for 1 week and is still hypertensi ve and intermitte ntly symptomati c. I will increase her to 90 mg by adding 30 mg to the 60mg she already takes since her meds are in blister packs. Allergies and pharmacy verified with the patient before sending the prescripti on.Advised we do not want to lower her blood pressure too quickly and she seems to be tolerating the nifedipine -advised if her blood pressure is better controlled on 90 mg -PCP can write for 90 mg ER and 1 pill moving forward Health Concerns Section Related Observation LastModified by Organization Detai ls LastModified Time None Recorded Concern Status LastModified by Organization Details LastModified Time None Recorded Advance Directives Directive None Recorded Payers Insurance Date Sequence Insurance Name Policy Number Policy Johnston Covered Member ID Johnston Member ID Guarantor Name 11/30/2024 1 FOR[facility]LY [facility] - DOS PRIOR TO 2023 - DUAL ELIGIBLE (MEDICARE REPLACEMENT/ADV ANTAGE - HMO) Amee Hartman [id number] [facility] 09/28/2025 1 FORMERLY [facility] - DOS ON OR AFTER 2023 - DUAL ELIGIBLE - CARE HOME OPTIONS AND ONE CARE (MEDICARE REPLACEMENT/ADV ANTAGE - HMO) Amee Hartman [id number] Amee Hartman Notes Date Note Type Note Provider Name and Address Organization Details Recorded Time 01/20/2025 text/html HPI: Call returned to [facility] to triage below. Reports having elevated BP reading today of L arm 170/97 HR 75 R arm 187/113 HR 76. Reports having some fatigue. Pt discharged from [facility] on 01/19/25 S/P Left subclavian stenosis stent [...] occurs. Confirmed demographics and allergies. Pt agrees. .................... .................... .................... .................... .................... .................... .................... . CRC Nurse Triage Notes (Delphine Guevara): Reason For Request: Follow up visit Denies: History of Heart Attack, in the setting of active chest pain Active Chest pain, radiates to neck jaw and or arm Diaphoretic/Sweating Describes as c rushing Sudden onset of nausea/Vomiting and shortness of breath. Shortness of Breath Unable to speak in full sentences without distress Chief Complaints: Extremity Pain, High Blood Pressure PMH: Hypertension, Coronary Artery Disease, COPD/Asthma, Diabetes Mellitus Type 2, Chronic Kidney Disease, Peripheral Artery Disease PMH Reviewed at 01/20/2025 - : Allergies Reviewed at 01/20/2025 - :06 Comments: Call to [facility], no cardiac concerns, patient discharged yesterday post procedure, feels fatigued and has had elevated BP since yesterday. Patient would like to be evaluated. .................... .................... .................... .................... .................... .................... .................... . Assistant Front Desk Manager Note From Aubrey Espinosa: Patient alert and [...] pressure readings. Red flags, patient education discussed. .................... .................... .................... .................... .................... .................... .................... . [facility] Consulted: Betzy Jackson .................... .................... .................... .................... .................... .................... .................... . Disposition: Óscar Jackson MD [address], [place], [address], [employer] 01/20/2025 17:15:09 07/14/2025 text/html ROS as noted in the [facility] CRC Nurse Triage Notes (Yina Sandoval): Reason For Request: Patient stated at 6am bp 191/86, took meds, then it was 175/80, blood pressure problems. Patient also has stomach problems. weak. Patient Reports: Weakness/tachycardia Denies: History of Heart Attack, in the setting of active chest pain Active Chest pain, radiates to neck jaw and or arm Diaphoretic/Sweating Describes as c rushing Sudden onset of nausea/Vomiting and shortness of breath. Shortness of Breath Unable to speak in full sentences without distress Palpitations, feeling dizzy Chest pain, increased fatigue CHF history, increased swelling and edema Chief Complaints: High Blood Pressure PMH: Hypertension, Coronary Artery Disease, COPD/Asthma, Diabetes Mellitus Type 2, Chronic Kidney Disease, Peripheral Artery Disease PMH Reviewed at 07/14/2025 Allergies Reviewed at 07/14/2025:36 Comments: 79 y.o female complains of High Blood Pressure Call completed with a translator and interpreter. BP currently 175/80 after taking morning meds. She reports denying any chest pain, but does have weakness in her body. She denies any shortness of breath. She went to the ER on Saturday, for her high BP recently, and they gave her BP pills. She was told to call her PCP, but has not yet. She takes valsartan and two other medications, the names of which she is unsure. She denies any nausea or vomiting, but her appetite is not good She denies any headaches, but feels unbalanced at times. Her normal BP is 120/80's but it usually has been higher now. Pt has diabetes , last blood sugar 97 I provided information on the mobile health provider response time and advised the patient and/or caregiver to monitor reported signs and symptoms. I discussed the warning signs of when to seek emergency care. Assistant Front Desk Manager Organization Information for Aubrey Espinosa Business Legal Name: [facility] Transportation Address: [address] [place] [address], [place] [address], Value Stream Manager: Holger Rosenbaum MD CLIA No.: [id number] Assistant Front Desk Manager POC Test Results from Aubrey Espinosa [facility] (12:06:35) pH: 7.584pH units pCO2: 24.6mmHg pO2: 97.1mmHg Na: 136mmol/L K: 3.9mmol/L iCa: 0.97mmol/L Cl: 107mmol/L TCO2: 21.8mEq/L Hct: 35% Hb: 11.9g/dL Glu: 96mg/dL Lac: 0.87mmol/L Cr: 0.63mg/dL BUN: 19mg/dL Ammol/L HCO3: 23.3mmol/L .................... .................... .................... .................... .................... .................... .................... . Assistant Front Desk Manager Note From Aubrey Espinosa: Patient alert and oriented complains of fatigue and left side lower abdominal pressure that feels like diverticulitis she s had in the past. Patient reports last episode more than two years ago unknown treatment. Patient also complains of mild nausea and elevated heart rate earlier. Patient denies any chest pain, palpitations, or other pain or complaints. Patient reports some pain on moving her bowels this morning and says she can elicit pain in her left lower quadrant by pressing her fingers deeply to her abdomen. Patient pink warm dry secondary exam unremarkable. Lung sounds clear negative increased work of breathing positive full sentences abdomen soft nontender negative CVA tenderness, extremities unremarkable no edema noted. [facility] discusses case with patient on phone. Tests administered as ordered. Patient encouraged to follow up with PCP, report she l l be able to clam picker prescribed medication today. Red flags patient education discussed. Patient and caregiver demonstrate understanding of care and plan. Patient asked questions. .................... .................... .................... .................... .................... .................... .................... . [facility] Consulted: Jay Sow .................... .................... .................... .................... .................... .................... .................... . Disposition: Fulfilled Jay Sow MD [address] [place] [address],[address], [place], [address], [employer] 07/14/2025 13:32:45 08/06/2025 text/html CRC Nurse Triage Notes (Deanna Raines): Reason For Request: abdominal pain Patient Reports: Sharp focal or diffuse abdominal pain ; Bloating, jaundice new onset with pain; Constipation Denies: Vomiting blood/coffee ground material Nausea and vomiting greater than 2 hours with abdominal pain Tearing pain that radiates to back Food Impaction Vague abdominal pain greater than 24 hours Diarrhea no blood in stool Nausea with or without vomiting Inability to tolerate foods, fluids or daily medications Chief Complaints: Abdominal Pain PMH: Hypertension, Coronary Artery Disease, COPD/Asthma, Diabetes Mellitus Type 2, Chronic Kidney Disease, Peripheral Artery Disease, Irritable Bowel Syndrome (IBS) PMH Reviewed at 08/06/2025 - 16: Allergies Reviewed at 08/06/2025 - : Comments: 79 y.o female complains of Abdominal Pain Patient [facility] referral Patient called their triage line this afternoon Recently went to ER 9/10 acute ascites and urinary infection according to [facility] Patient complaining of bloating c/o left sided abdominal pain, denies any nausea or vomiting hx of chronic constipation endorses decreased appetite refusing to go back to the hospital and requesting insted visit triage limited due to information [facility] had and patient being a poor historian patient has chronic kidney issues and Plavix s on her list but [facility] states she is not taking it at this time. I provided information on the mobile health provider response time and advised the patient and/or caregiver to monitor reported signs and symptoms. I discussed the warning signs of when to seek emergency care. .................... .................... .................... .................... .................... .................... .................... . Assistant Front Desk Manager Note From Paul Farrar: Encountered patient conscious, alert and ambulatory with family present. Patient reports, for approximately one week, she has been experiencing left-sided upper and lower quadrant pain that does not radiate to her flank or lower back. Patient states she was seen at a local emergency room on 08/04/[address] scan performed. [facility] able to view CT scan results via patient s chart. Patient reports that while in the hospital, she was given Maalox, which helped temporarily alleviate her symptoms and is requesting a dose today. Skin warm, dry and of appropriate color for ethnicity. Head and neck, free of trauma and edema. -JVD. Breath sounds present clear and equal bilaterally. Abdomen is non-distended but is tender to the left upper and left lower quadrants; only with heavy pressure per patient. Extremities are free of trauma and edema. [facility] contacted: GI cocktail (Viscus lidocaine & Mag-AL Plus) x1 administered. 20mg of IV famotidine administered; medications administered after medication r ights were reconciled with patient. [facility] states they will send a prescription for further treatment to a pharmacy of patient s choice. Patient was encouraged to monitor herself for worsening symptoms as well as fevers and constipation and was urged to seek further medical attention including 911 if said symptoms were too develop. Patient verbalizes understanding of the plan and states she is comfortable remaining home today. IV discontinued prior to end of appointment. .................... .................... .................... .................... .................... .................... .................... . [facility] Consulted: Russ Chandler .................... .................... .................... .................... .................... .................... .................... . Disposition: Fulfilled Russ Chandler MD [address] [place] [address],[address], [place], [address], [employer] 08/06/2025 22:38:22 09/08/2025 text/html CRC Nurse Triage Notes (Deanna Raines): Reason For Request: Pt reporting BP 8pm-199/99, 97, 64>8:20pm reading 221/96, 59>it has been 1 year since elevated BPAllergies to meds: Penicillin>Amlodipin ePMH: Hypertension, Diabetic, arthritis Patient Reports: Chest pain, increased fatigue Denies: History of Heart Attack, in the setting of active chest pain Active Chest pain, radiates to neck jaw and or arm Diaphoretic/Sweating Describes as c rushing Sudden onset of nausea/Vomiting and shortness of breath. Shortness of Breath Unable to speak in full sentences without distress Palpitations, feeling dizzy CHF history, increased swelling and edema Weakness/tachycardia Chief Complaints: High Blood Pressure, Chest Pain PMH: Hypertension, Coronary Artery Disease, COPD/Asthma, Diabetes Mellitus Type 2, Chronic Kidney Disease, Peripheral Artery Disease, Irritable Bowel Syndrome (IBS) PMH Reviewed at 09/08/2025:56 Allergies Reviewed at 09/08/2025:56 Comments: 79 y.o female complains of High Blood Pressure patients symptoms started on Saturday and was in the Emergency room for high BP. They gave her medication (unsure what they gave her via IV ). according to patient discharged with advisement to follow up with her PCP. no medication changes made at that time. Patient has been monitoring her blood pressure all day and it has been elevated. 180-210's/90s patient has no hx of heart attacks, denies any headaches or dizziness, denies any shortness of breath., denies any nausea or vomiting. does describe a loose funny sensation in her chest that travels to the right side but not all the way down her arm. Nurse highly encouraged patient to seek EMS and patient refused. requesting insted visit for assessment, I provided information on the mobile health provider response time and advised the patient and/or caregiver to monitor reported signs and symptoms. I discussed the warning signs of when to seek emergency care. .................... .................... .................... .................... .................... .................... .................... . Assistant Front Desk Manager Note From Endy Jerome: Dispatched to the call address for the elderly female with hypertension. Pt states she has had on and off high blood pressure for a few days but today it has been consistently high. She as seen in the ED on Saturday for htn and given hydralazine and discharged. Pt was advised to follow up with PCP but has yet to do so. Pt states she doesn't have chest pain but she has an uncomfortable feeling in her chest. She denies headaches, vision changes, n/v/d or other complaints at this time. Pt was found sitting on living room chair, CAOx4, airway open and patent, breathing non labored, able to speak in full sentences, -JVD, -HEENT, skin PWD with good turgor, mucous membranes pink and moist, abd soft non tender/distended, pupils PERRL, +CSMx4, -edema/swelling, lungs CTA, afebrile. Hypertension. Pt was assessed. Manual PB reading of 222/100. [facility] consulted. ED advised. Pt agreeable. 911 called for the Pt. I remained on scene with her until EMS arrival. Pt less than 0.5 miles from ambulance HQ, with quick arrival time no interventions were able to be conducted. (Adair WILSON with [employer] intercept). Pt transported to [facility] per her request. ALL times are approx. .................... .................... .................... .................... .................... .................... .................... . [facility] Consulted: Jessica Moore .................... .................... .................... .................... .................... .................... .................... . Disposition: Óscar Jessica Moore MD [address], [place], [address], [employer] 09/09/2025 08:33:10 09/28/2025 text/html ROS as noted in the HPI HPI: Pt states at 8am today, she took her BP medications, at 11AM, the [facility] nurse told her her BP was 184/98. Currently pt states her BP is 190/85, she reports mild weakness and low back pain, denies jaw pain, chest pain, arrhythmia, shortness of breath, dizziness, blurry vision. Denies weakness or numbness anywhere else in the body, states she can lift both arms and neither droops. States she has been to the ED twice in the last month for the same sxs and they told me to follow up with PCP. .................... .................... .................... .................... .................... .................... .................... . [facility] Nurse Triage Notes (Delphine Guevara): Chief Complaints: High Blood Pressure, Weakness PMH: Hypertension, Coronary Artery Disease, COPD/Asthma, Diabetes Mellitus Type 2, Chronic Kidney Disease, Peripheral Artery Disease, Irritable Bowel Syndrome (IBS) PMH Reviewed at 09/28/2025 16:48 Allergies Reviewed at 09/28/2025 - 16:48 Comments: HPI reviewed SEGMD: Patient's valsartan was discontinued on 09/14 and then she was started on nifedipine 60 mg 09/21 so she has been on it for a week but is still getting breakthrough hypertension. She complains of chronic left lower back pain and some intermittent left arm weakness that she has had for 3 to 4 months status post some procedure, prior to that. She currently denies any headache, dizziness, visual changes, speech changes, chest pain, shortness of breath, nausea vomiting or diarrhea. Her blood pressure is better than earlier. .................... .................... .................... .................... .................... .................... .................... . Assistant Front Desk Manager Note From Karen Calvert: Sent to a call for a pt complaining of hypertension. [facility] arrives on scene, pt is alert and oriented, airway is patent. Language line used during visit. Pt complains of hypertension. Pt complains of chronic left side back pain and left arm weakness x 3-4 months following a procedure. Pt denies lopez, dizziness, vision changes, cp, sob, n/v/d, abd pain, fever, or loc. Pt was evaluated at [facility] ED on 09/08-09/09 for hypertension. Pt's Valsartan was discontinued on 09/14, and on 09/21 pt was started on Nifedipine ER 60mg every morning. Pt is also prescribed Imdur 30mg daily, Carvedilol 3.125mg BID, and Spironolactone 50mg daily. Pt is advised to follow a low salt diet, and avoid processed foods that contain high salt. (processed foods observed in home). Pt states she uses very little salt and ate fish, boiled carrots, and rice at day program. Pt states today her BP was elevated at program and nurse states they will contact pt's PCP. [facility] consulted and sends prescription to pt's pharmacy for Nifedipine 30mg PO. Pt is advised to take 30mg tablet with 60mg to take at the same time. Pt advised to follow up with PCP this week. Pt states she has had difficulty getting appt, so [facility] will send note to pt's health care recruiter to help schedule appt. Red flags discussed. Pt has no further questions. .................... .................... .................... .................... .................... .................... .................... . [facility] Consulted: Rhina Simons .................... .................... .................... .................... .................... .................... .................... . Disposition: Fulfilled Rhina Simons MD [address] [facility], [place], [address], [employer] 09/28/2025 19:44:52 OBGyn Episode No OBEpisode recorded.
--- OUTSIDE RECORDS SUMMARY | 2025-10-25 08:50 | XMS_ITS | Encounter Summary ---
Author Organization [employer] Address [address] [facility] [address] [place] [address] Care Team Providers Care Nicu Rn Name Role Phone Andriy Scott MD Primary Care Prov ider Encounter Details Date Type Department Care Team (Latest Contact Info) Description 06/15/[address] [facility] CONVERSIONS Dental, Provider, DDS Social [...] Care Team (Late st Contact Info) Description 10/27/2025 11:15 AM EST Telemedicine [facility] CHC MED & PEDS [address] [place] [address] Andriy Scott MD [address] [place] [address] documented as of this encounter Visit Diagnoses Not on filedocumented in this encounter Care Teams Nicu Rn Relationship Specialty Start Date End Date Andriy Scott MD [address] [place] [address] PCP - General Internal Medicine 04/05/20 documented as of this encounter
--- OUTSIDE RECORDS SUMMARY | 2025-10-25 08:50 | XMS_ITS | Encounter Summary ---
Author Organization [employer] Address [address] [facility] [address] [place] [address] Care Team Providers Care Farm Marketer Name Role Phone Andriy Scott MD Primary Care Prov ider Reason for Visit * Reason Comments Med Refill Encounter Details Date Type Department Care Team ([facility] Contact Info) Description 05/17/2024 Refill [facility] CHC MED & PEDS [address] [place], [place] [id number] Andriy Scott MD [address] [place] [address] Type 2 diabetes mellitus with stage 3a chronic kidney disease, without long-term current use of insulin ([facility]) Social History Tobacco Use Types Packs/Day [...] Info) Description 10/27/2025 11:15 AM EST Telemedicine [facility] MED & PEDS [address] [place] [address] Andriy Scott MD [address] [place] [address] documented as of this encounter Goals Goal Patient Goal Type Associated Problems Recent Progress Patient-Stated? Author Blood Pressure < 140/90 Blood Pressure 180/81(2024 11:04 AM EST) No Mi Alcaraz PharmD Reduce [...] documented as of this encounter Care Teams Farm Marketer Relationship Specialty Start Date End Date Andriy Scott MD [address] [place] [address] PCP - General Internal Medicine 04/05/20 documented as of this encounter
--- OUTSIDE RECORDS SUMMARY | 2025-10-25 08:50 | XMS_ITS | Encounter Summary ---
Author Organization [employer] Address [address] [facility] [address] [place] [address] Care Team Providers Care Supervisor Varnish Name Role Phone Andriy Scott MD Primary Care Prov ider Encounter Details Date Type Department Care Team (Latest Contact Info) Description 06/27/2022 Abstract [facility] CONVERSIONS Dental, Provider, DDS Social History Tobacco [...] Info) Description 10/27/2025 11:15 AM EST Telemedicine [facility] CHC MED & PEDS [address] [place] [address] Andriy Scott MD [address] [place] [address] documented as of this encounter Visit Diagnoses Not on filedocumented in this encounter Care Teams Supervisor Varnish Relationship Specialty Start Date End Date Andriy Scott MD [address] [place] [address] PCP - General Internal Medicine 04/05/20 documented as of this encounter
--- OUTSIDE RECORDS SUMMARY | 2025-10-25 08:50 | XMS_ITS | Encounter Summary ---
Author Organization [employer] Address [address] [facility] [address], [place] [address] Care Team Providers Care Security Assurance Specialist Name Role Phone Andriy Scott MD Primary Care Prov ider Encounter Details Date Type Department Care Team (Late Contact Info) Description 12/07/2022 Orders Only [facility] MED & PEDS [address], [place] [phone] Tyra Anand LPN Social History Tobacco Use [...] Department Care Team (Late Contact Info) Description 10/27/2025 11:15 AM EST Telemedicine [facility] CHC MED & PEDS [address] [place] [address] Andriy Scott MD [address] [place] [address] documented as of this encounter Visit Diagnoses Not on filedocumented in this encounter Care Teams Security Assurance Specialist Relationship Specialty Start Date End Date Andriy Scott MD [address] [place] [address] PCP - General Internal Medicine 04/05/20 documented as of this encounter
--- OUTSIDE RECORDS SUMMARY | 2025-10-25 08:50 | XMS_ITS | Encounter Summary ---
Author Organization [employer] Address [address] [facility] [address] [place] [address] Care Team Providers Care Yarn Finisher Name Role Phone Andriy Scott MD Primary Care Prov ider Encounter Details Date Type Department Care Team ([facility] Contact Info) Description 04/09/2023 Orders Only [facility] MED & PEDS [address] [place] [address] Joann Patrick LPN Social History Tobacco Use [...] Upcoming Encounters Date Type Department Care Team ([facility] Contact Info) Description 10/27/2025 11:15 AM EST Telemedicine [facility] CHC MED & PEDS [address] [place] [address] Andriy Scott MD [address] [place] [address] documented as of this encounter Visit Diagnoses Not on filedocumented in this encounter Additional Health Concerns Assessment Noted Time PHQ-9 Depression Total Score: 0 02/22/20 23 1:22 PM EDT documented as of this encounter Care Teams Yarn Finisher Relationship Specialty Start Date End Date WinklerAndriy Cobb MD [address] [place] [address] PCP - General Internal Medicine 04/05/20 documented as of this encounter
--- OUTSIDE RECORDS SUMMARY | 2025-10-25 08:50 | XMS_ITS | Encounter Summary ---
Author Organization [employer] Address [address] [facility] 7t [place] [address] Care Team Providers Care Fiberglass Bonding Machine Tender Name Role Phone Andriy Scott MD Primary Care Prov ider Encounter Details Date Type Department Care Team ([facility] Contact Info) Description 12/23/2024 Orders Only [facility] [address] [place], [place] [phone] ProviderKaren MD Social History Tobacco Use Types [...] Info) Description 10/27/2025 11:15 AM EST Telemedicine [facility] CHC MED & PEDS [address] [place] [address] Andriy Scott MD [address] [place], [place] [phone] documented as of this encounter Goals Goal [...] documented as of this encounter Care Teams Fiberglass Bonding Machine Tender Relationship Specialty Start Date End Date Andriy Scott MD [address] [place] [address] PCP - General Internal Medicine 04/05/20 documented as of this encounter
--- OUTSIDE RECORDS SUMMARY | 2025-10-25 08:50 | XMS_ITS | Encounter Summary ---
Author Organization [employer] Address [address] [facility] 7t [place] [address] Care Team Providers Care Sheet Metal Shop Supervisor Name Role Phone Andriy Scott MD Primary Care Prov ider Encounter Details Date Type Department Care Team ([facility] st Contact Info) Description 03/05/2024 Orders Only [facility] CHC MED & PEDS [address] [place], [place] [phone] Andriy Scott MD [address] [place] [address] Type 2 diabetes mellitus with stage 3a chronic kidney disease, without long-term current use of insulin ([facility]) Social History Tobacco Use Types Packs/Day Years [...] Description 10/27/2025 11:15 AM EST Telemedicine [facility] CHC MED & PEDS [address] [place] [address] Andriy Scott MD [address] [place] [address] documented as of this encounter Goals Goal [...] documented as of this encounter Care Teams Sheet Metal Shop Supervisor Relationship Specialty Start Date End Date Andriy Scott MD [address] [place] [address] PCP - General Internal Medicine 04/05/20 documented as of this encounter
--- OUTSIDE RECORDS SUMMARY | 2025-10-25 08:50 | XMS_ITS | Encounter Summary ---
Author Organization [employer] Address [address] [facility] [address] [place] [address] Care Team Providers Care Combatant Diver Qualified Name Role Phone Andriy Scott MD Primary Care Prov ider Encounter Details Date Type Department Care Team ([facility] Contact Info) Description 03/25/2023 Orders Only [facility] MED & PEDS [address] [place] [address] Joann Patrick LPN Social History Tobacco Use [...] Upcoming Encounters Date Type Department Care Team ([facility] Contact Info) Description 10/27/2025 11:15 AM EST Telemedicine [facility] CHC MED & PEDS [address] [place] [address] Andriy Sctot MD [address] [place] [address] documented as of this encounter Visit Diagnoses Not on filedocumented in this encounter Additional Health Concerns Assessment Noted Time PHQ-9 Depression Total Score: 0 02/22/20 23 1:22 PM EDT documented as of this encounter Care Teams Combatant Diver Qualified Relationship Specialty Start Date End Date WinklerAndriy Cobb MD [address] [place] [address] PCP - General Internal Medicine 04/05/20 documented as of this encounter
--- OUTSIDE RECORDS SUMMARY | 2025-10-25 08:50 | XMS_ITS | Clinical Summary ---
Author Organization [employer] Address [address] [facility] 7[address] [place] [address] Care Team Providers Care Supply Chain Business Analyst Name Role Phone Andriy Scott MD Primary Care Prov ider Allergies Active Allergy Reactions Criticality Noted Date Comments Amlodipine Medium 09/07/2015 Other reaction(s): abdominal pain , Abdominal pain' feeling weak/tired Diphth-Acell Pertussis-Tetanus 06/19/2023 Lisinopril Medium 05/17/2015 Feeling weak/tired Penicillins Rash,Swelling Low 05/13/2015 Medications triamcinolone (Kenalog) 0.1 % cream Apply topically if needed in the morning and at bedtime (pain and swelling). 30 g 5 023 Active ceramides (CeraVe) moisturizing cream Apply 1 application topically if needed for dry skin. 340 g 3 023 Active Repatha SureClick 140 MG/ML injection INJECT 1ml SUBCUTANEOUSLY EVERY 14 DAYS 023 Active albuterol 108 (90 Base) MCG/ACT inhaler inhale 2 puff by inhalation route every 4 - 6 hours as needed as needed 015 Active ketotifen (Zaditor) 0.025 % ophthalmic solution Administer 1 drop into both eyes 2 times daily. As needed for allergy Active nitroglycerin (Nitrostat) 0.[address] 1 tablet (0.4 mg) under the tongue every 5 (five) minutes if needed for chest pain. 30 tablet 024 Active TRUEplus Lancets 33G misc TEST BLOOD SUGAR TWICE DAILY 100 each 11 024 Active fluticasone (Flonase) 50 MCG/ACT nasal sprayIndications :Non-seasonal allergic rhinitis due to fungal spores Administer 1 spray into each nostril Once per day. Shake gently. Before first use, prime pump. After use, clean tip and replace cap. 16 g 11 025 2025 Active sodium chloride ([place] Nasal [place]) 0.65 % nasal spray Administer 1 spray [...] morning. 90 tablet 3 025 2025 Active cyanocobalamin (Vitamin B-12) 1000 MCG tablet Take 1 tablet (1,000 mcg) by mouth Once per day. 90 tablet 3 10/11/20 25 3:48 PM EST 025 2025 Active ferrous gluconate (Fergon) 324 [...] AT BEDTIME 90 tablet 1 025 Active glucose blood (FREESTYLE LITE) test stripIndications :Type 2 diabetes mellitus without complication, without long-term current use of insulin (HCC) USE TO TEST BLOOD SUGAR TWICE DAILY 100 strip 11 Active sucralfate (Carafate) 1 g tablet Take 1 tablet (1 g) by mouth 3 times daily. 90 tablet 11 10/11/20 3:48 PM EST 2025 Active Multiple Vitamin (Multivitamin) tabletIndication s:Primary hypertension TAKE ONE TABLET EVERY MORNING 30 tablet 1 Active carvedilol (Coreg) 3.125 MG tablet Take 1 tablet (3.125 mg) by mouth with breakfast and with evening meal. 60 tablet 2 10/11/20 3:48 PM EST Active NIFEdipine XL (Procardia XL) 60 MG 24 hr tablet Take 1 tablet (60 mg) by mouth Once per day. Do not crush, chew, or split. 30 tablet 11 10/11/20 3:48 PM EST 2025 Active NIFEdipine XL (Procardia XL) 30 MG 24 hr tablet Take 1 tablet (30 mg) by mouth Once per day. Do not crush, chew, or split. 30 tablet 11 10/11/20 3:48 PM EST 2025 Active spironolactone (Aldactone) 50 MG tabletIndication s:Primary hypertension Take 1 tablet (50 mg) by mouth Once per day. 30 tablet 11 10/13/20 2:45 PM EST 2025 Active valsartan (Diovan) 160 MG tablet Take 1 tablet (160 mg) by mouth 2 times daily. 180 tablet 3 10/13/20 2:45 PM EST 2025 Active spironolactone (Aldactone) 25 MG tabletIndication s:Primary hypertension Take 1 tablet (25 mg) by mouth Once per day. 30 tablet 3 2024 Discontinued(R eorder (will not trigger notification to Pharmacy)) valsartan (Diovan) 160 MG tablet Take 1 tablet (160 mg) by mouth 2 times daily. 180 tablet 3 2024 Discontinued(R eorder (will not trigger notification to Pharmacy)) spironolactone (Aldactone) 25 MG tabletIndication s:Primary hypertension TAKE 1 TABLET BY MOUTH EVERY DAY 30 tablet 3 10/11/20 25 3:48 PM EST 025 2024 Discontinued Active Problems Problem Noted [...] if not improving Asthma 11/30/2024 CAD in apache artery 11/30/2024 Class 2 obesity 11/30/2024 Chronic [...] and valsartan 80mg bid sent by her hydrology technician that she has not started, will increase [...] kidney 02/06/2021 Coronary artery disease invo lving apache heart without angina pectoris 12/15/2020 Overview (11/30/2024): [...] Coronary atherosclerosis 05/18/2015 Overview (07/09/2023): Followed by [facility] Cardiology Dr.Robert Ward Followed by [facility] Cardiology Dr.Robert Ward Assessment & [...] - Adult Primary Care Assessment & Plan (10/12/2025 1:43 PM EST): Patient brought her medbox, upon review valsartan was not in the package, spoke with pharmacist and patient was sent to the pharmacy, will follow up in 2 weeks. Osler maneuver performed was negative Assessment & Plan (09/24/2025 11:09 AM EDT): Not at target, will increase valsartan to 2 times a day, told to keep blood pressure log, follow up in 1 week Assessment & Plan (09/21/2025 2:06 PM EDT): Uncontrolled, will increase nifedipine to 60mg, continue valsartan 160mg bid, spironolactone 25mg daily, carvedilol 3.125 BID, keep blood pressure log, follow up in 3 weeks in office, consider pseudohypertension Assessment & Plan (09/14/2025 11:03 AM EDT): [...] Encounters Date Type Department Care Team Description 10/12/2025 10:45 AM EST Office Visit [facility] MED & PEDS [address] [place] [address] Andriy Scott MD Bloating (Primary Dx); Type 2 diabetes mellitus with stage 3a chronic kidney disease, without long-term current use of insulin (HCC); Primary hypertension; Essential hypertension 10/12/2025 Travel 10/11/2025 Telephone [facility] [address] [place] [address] Andriy Scott MD chart prep 10/08/2025 Refill [facility] [address] [place] [address] Andriy Scott MD Primary hypertension 10/08/2025 Refill [facility] [address] [place] [address] Andriy Scott MD Essential (primary) hypertension 10/07/2025 Refill [facility] [address] [place] [address] Andriy Scott MD Essential (primary) hypertension 09/28/2025 Telephone [facility] MEDICINE [address] [place] [address] Rebecca Go, RN Nurse Triage 09/27/2025 11:00 AM EST Clinical Support [facility] [address] [place], [place] [phone] Elizabeth Bradley RN Primary hypertension 09/27/2025 Travel 09/22/2025 Telephone [facility] [address] [place] [address] Andriy Scott MD Call Back Request 09/21/2025 2:15 PM EDT Telemedicine [facility] [address] [place] [address] Andriy Scott MD Essential hypertension (Primary Dx) 09/21/2025 Telephone [facility] [address] [place] [address] Andriy Scott MD 09/21/2025 Travel 09/20/2025 Telephone [facility] [address] [place] [address] Andriy Scott MD Chart Prep 09/17/[address] [address] Andriy Scott MD Nurse Triage 09/14/2025 9:30 AM EDT Office Visit [facility] [address] [place] [address] Andriy Scott MD Essential hypertension (Primary Dx); Type 2 diabetes mellitus with stage 3a chronic kidney disease, without long-term current use of insulin (HCC) 09/14/2025 Travel 09/13/2025 Telephone [facility] [address] [place] [address] Andriy Scott MD Chart Prep 09/10/2025 3:30 PM EDT Office Visit [facility] [address] [place] [address] Disha Riggs CNP Essential hypertension (Primary Dx) 09/10/2025 Travel 09/10/2025 Orders Only [facility] [address] [place] [address] Karen Lema MD 09/08/[address] [address] Andriy Scott MD ER Follow-up 09/06/2025 Orders Only [facility] [address] [place] [address] Karen Lema MD 09/06/2025 Refill [facility] [address] [place] [address] Andriy Scott MD Essential hypertension 09/03/2025 Telephone [facility] MEDICINE [address] [place] [address] Andriy Scott MD Medication Question 09/02/2025 Refill [facility] [address] [place] [address] Andriy Scott MD Primary hypertension 08/31/2025 Telephone [facility] MEDICINE [address] [place] [address] Andriy Scott MD Medication Question 08/19/2025 9:30 AM EDT Office Visit [facility] [address] [place] [address] Andriy Scott MD Essential hypertension (Primary Dx); Type 2 diabetes mellitus with stage 3a chronic kidney disease, without long-term current use of insulin (CMS/HCC); Mesenteric artery stenosis (CMS/HCC) 08/19/2025 Travel 08/18/2025 Telephone [facility] [address] [place] [address] Andriy Scott MD chart prep 08/10/2025 8:30 AM EDT Telemedicine [facility] [address] [place] [address] Andriy Scott MD Essential hypertension (Primary Dx); Type 2 diabetes mellitus with stage 3a chronic kidney disease, without long-term current use of insulin (CMS/HCC) 08/10/2025 Travel 08/09/2025 Telephone [facility] [address] [place] [address] Andriy Scott MD chart prep 08/05/2025 Orders Only [facility] [address] [place] [address] Karen Lema MD 08/05/2025 Telephone [facility] [address] [place] [address] Andriy Scott MD ER Follow-up 08/04/2025 Orders Only [facility] [address] [place] [address] ProviderKaren MD 08/03/2025 Telephone [facility] MEDICINE [address] [place] [address] Andriy Scott MD Medication Question 07/27/2025 Results Follow-Up [facility] [address] [place] [address] Disha Riggs CNP Culture, Urine, Routine 07/27/2025 Orders Only [facility] & PEDS [address] [place], [place] [phone] Disha Riggs CNP UTI (urinary tract infection), uncomplicated (Primary Dx) from Last 3 Months Immunizations Immunization Administration [...] Sign Reading Time Taken Comments Blood Pressure 180/81 10/12/2025 11:04 AM EST Pulse 62 10/12/2025 11:04 AM EST Temperature 36.9 C (98.4 F) 10/12/2025 11:04 AM EST Respiratory Rate 20 10/12/2025 11:04 AM EST Oxygen Saturation 96% 09/10/2025 3:41 PM EDT Inhaled Oxygen Concentration - - Weight 66.2 kg (146 lb) 10/12/2025 11:04 AM EST Height 142.2 cm (4' 8 ) 10/12/2025 11:04 AM EST Body Mass Index 32.73 10/12/2025 11:04 AM EST Plan of Treatment Upcoming Encounters Date Type Department Care Team (Late st Contact Info) Description 10/27/2025 11:15 AM EST Telemedicine [facility] CHC MED & PEDS [address] [place] [address] Andriy Scott MD [address] [place] [address] Health Maintenance Due Date Last Done Comments Eye Exam 1955 Pneumococcal Vaccine: 50+ Years (1 of 2 - PCV) 1963 RSV Patients and Patients Aged 60 years or older (1 - 1-dose 75+ series) 2019 Dental Oral Exam 02/07/2024 08/08/2023, 01/2022, 01/03/2021, Additional history exists Dental Prophylaxis 02/07/2024 08/08/2023, 0 07/10/2022, 12/17/2019, Additional history exists Dental X-Ray: Bitewings 08/09/2024 08/08/20 23, 06/27/2022, 01/03/2021, Additional history exists Lipid Panel [...] Date/Time Associated Diagnosis Comments POCT GLUCOSE Routine 10/12/2025 11:06 AM EST Type 2 diabetes mellitus with stage 3a chronic kidney disease, without long-term current use of insulin ([facility]) POCT GLUCOSE Routine 09/14/2025 9:54 AM EDT Type 2 diabetes mellitus with stage 3a chronic kidney disease, without long-term current use of insulin ([facility]) ECG 12-LEAD Routine 09/08/2025 8:47 AM EDT ECG 12-LEAD Routine 09/08/2025 8:46 AM EDT ECG 12-LEAD Routine 09/05/2025 3:52 PM EDT XR CHEST 2 VIEWS Routine 09/05/2025 2:57 PM EDT POCT GLUCOSE Routine 08/19/2025 9:57 AM EDT Type 2 diabetes mellitus with stage 3a chronic kidney disease, without long-term current use of insulin ([facility]) ECG 12-LEAD Routine 08/04/2025 2:[address] HEAD WO CONTRAST Routine 08/04/2025 2 :06 PM EDT XR CHEST 1 VIEW Routine 08/04/2025 1:[address] ABDOMEN PELVIS W CONTRAST Routine 08/04/2025 12:46 PM EDT POCT GLYCATED HEMOGLOBIN, TOTAL Routine 07/01/2025 3:37 PM EDT Type 2 diabetes mellitus with stage 3a chronic kidney disease, without long-term current use of insulin ([facility]/HCC) LIPID PANEL, STANDARD Routine 01/10/2024 8:24 AM [...] to Health Maintenance Results * POCT Glucose (10/12/2025 11:06 AM EST) Only the most recent of3 resultswithin the time period is included. Glucose Blood, POC 135 60 - 200 mg/dL QC Media Lot # [id number] Lot# Expiration Date Blood Capillary blood specimen / Unknown 10/12/2025 11:06 AM EST Result [facility] Andriy Hartman MD POINT OF C ARE TEST ENTER/EDIT ORDERABLES Edited Result - Final * ECG 12 lead (09/08/2025 8:47 AM EDT) Only the most recent of4 resultswithin the time period is included. Historical Provider ECG ORDERABLES Final Res ult * XR Chest 2 Views (09/05/2025 2:57 PM EDT) Anatomical Region Laterality Modality Chest Radiographic Steph ging Historical Provider IMG XR PROCEDURES Final R esult * CT Head w/o Contrast (08/04/2025 2:06 PM EDT) Anatomical Region Laterality Modality Head, Neck Computed Tomogra phy Historical Provider IMG CT PROCEDURES Final R esult * XR Chest 1 View (08/04/2025 1:19 PM EDT) Anatomical Region Laterality Modality Chest Radiographic Steph ging Historical Provider IMG XR PROCEDURES Final R esult * CT Abdomen Pelvis w/ Contrast (08/04/2025 12:46 PM EDT) Anatomical Region Laterality Modality Body, Pelvis, Abdomen Computed T omography Historical Provider IMG CT PROCEDURES Final R esult * POCT HGB A1C (07/01/2025 3:37 PM EDT) Hemoglobin A1C 5.7 4.0 - 5.7 % QC Media Lot # [id number] Lot# Expiration Date Blood 07/01/2025 3:37 PM EDT Andriy Hartman MD POINT OF CARE TEST ENTER/EDIT ORDERABLES Final Result * Lipid Panel, Standard (01/10/2024 8:24 AM EST) Triglycerides 76 <150 mg/dL [facility] Comment:Desirable Triglyceri de: less than 150 mg/dLBorderline High Triglyceride 150-199 mg/dLHigh Triglyceride: 200-499 mg/dLVery High Triglyceride: greater than or equal to 5OO mg/dL Cholesterol 125 <200 mg/dL [facility] Comment:Desirable Cholestero l: less than 200 mg/dLBorderline High Cholesterol: 200-239 mg/dLHigh Cholesterol: greater than 239 mg/dL LDL Cholesterol Calculated 63 <100 mg/dL [facility] Comment:Desirable LDL: less than 100 mg/dLNear Optimal/Above Optimal LDL: 110- 129 mg/dLBorderline High LDL: 130-159 mg/dLHigh LDL: 160-189 mg/dLVery High LDL: greater than or equal to 190 mg/dL HDL Cholesterol 47 >40 mg/dL [facility] Comment:Desirable HDL: great er than 40 mg/dL Note: This HDL assay may give artificially low results in patients with liver disease. Blood Venous blood specimen / Unknown 01/10/2024 8:24 AM EST 01/10/2024 12:30 PM EST Andriy Hartman MD LAB BLOOD ORDERABL ES Final Result [facility] [address] [place] [address] [phone] from Last 3 Months or Most Recently Relevant to Health Maintenance Insurance [facility] [employer] (HMO D-SNP) [facility] Care Teams Supply Chain Business Analyst Relationship Specialty Start Date End Date Winkler Andriy Hartman MD [address] [place] [phone] PCP - General Internal Medicine 04/05/20
--- OUTSIDE RECORDS SUMMARY | 2025-10-25 08:50 | XMS_ITS | Encounter Summary ---
Author Organization [employer] Address [address] [facility] [address] [place] [address] Care Team Providers Care Surveillance Systems Analyst Name Role Phone Andriy Scott MD Primary Care Prov ider Encounter Details Date Type Department Care Team (Latest Contact Info) Description 01/03/2021 Abstract [facility] CONVERSIONS Dental, Provider, DDS Social [...] Info) Description 10/27/2025 11:15 AM EST Telemedicine [facility] MED & PEDS [address] [place] [address] Andriy Scott MD [address] [place] [address] documented as of this encounter Visit Diagnoses Not on filedocumented in this encounter Care Teams Surveillance Systems Analyst Relationship Specialty Start Date End Date Andriy Scott MD [address] [place] [address] PCP - General Internal Medicine 04/05/20 documented as of this encounter
--- OUTSIDE RECORDS SUMMARY | 2025-10-25 08:50 | XMS_ITS | Encounter Summary ---
Author Organization [employer] Address [address] [facility] [address] [address] Care Team Providers Care Student Accounts Coordinator Name Role Phone Andriy Scott MD Primary Care Prov ider Reason for Visit * Reason Onset Date Comments Nurse Triage 12/07/2024 Encounter Details Date Type Department Care Team ([facility] st Contact Info) Description 12/07/2024 Telephone [facility] CHC MED & PEDS [address] [place] [address] Andriy Scott MD [address] [place] [address] Nurse Triage Social History Tobacco Use Types [...] 12/07/2024 10:37 AM EST Triage call [place] [id number] [id number], unable to continue due to senior branch manager having computer problem. Ended call. Triage call [place] [id number] [place] [id number], Jacki. Pt reports having Covid 11/28/24 and [...] 10/27/2025 11:15 AM EST Telemedicine [facility] MED & PEDS [address] [place], [place] [phone] Andriy Scott MD [address] [place], [place] [phone] documented as of this encounter Goals Goal [...] documented as of this encounter Care Teams Student Accounts Coordinator Relationship Specialty Start Date End Date Andriy Scott MD [address] [place] [address] PCP - General Internal Medicine 04/05/20 documented as of this encounter
--- OUTSIDE RECORDS SUMMARY | 2025-10-25 08:50 | XMS_ITS | Encounter Summary ---
Author Organization [employer] Address 75 [facility] [address] [address] Care Team Providers Care Flower Picker Name Role Phone Andriy Scott MD Primary Care Prov ider Encounter Details Date Type Department Care Team ([facility] Contact Info) Description 11/23/2022 Telephone [facility] MED & PEDS [address] [place] [address] Andriy Scott MD 505 [place] [address] Social History Tobacco Use Types Packs/Day Years [...] Upcoming Encounters Date Type Department Care Team ([facility] Contact Info) Description 10/27/2025 11:15 AM EST Telemedicine [facility] MED & PEDS 505 [place] [address] Andriy Scott MD 505 [place] [address] documented as of this encounter Visit Diagnoses Not on filedocumented in this encounter Care Teams Flower Picker Relationship Specialty Start Date End Date WinklerAndriy Gonzalez MD [address] [place] [phone] PCP - General Internal Medicine 04/05/20 documented as of this encounter
--- OUTSIDE RECORDS SUMMARY | 2025-10-25 08:50 | XMS_ITS | Encounter Summary ---
Author Organization [employer] Address 75 [facility] 7t [place] [address] Care Team Providers Care Seismic Prospecting Observer Name Role Phone Andriy Scott MD Primary Care Prov ider Reason for Visit * Reason Onset Date Comments Call Back Request 02/15/2025 Encounter Details Date Type Department Care Team ([facility] Contact Info) Description 02/15/2025 Telephone [facility] MEDICINE [address] [place] [address] Andriy Scott MD 505 [place] [address] Call Back Request Social History Tobacco Use [...] to confirm the Appt. Contact pt at [phone] documented in this encounter Plan of Treatment Upcoming Encounters Date Type Department Care Team (Late st Contact Info) Description 10/27/2025 11:15 AM EST Telemedicine [facility] CHC MED & PEDS 505 [place] [address] WinklerAndriy Gonzalez MD 505 [place] [address] documented as of this encounter Goals Goal [...] documented as of this encounter Care Teams Seismic Prospecting Observer Relationship Specialty Start Date End Date Andriy Scott MD [address] [place] [address] PCP - General Internal Medicine 04/05/20 documented as of this encounter
--- OUTSIDE RECORDS SUMMARY | 2025-10-25 08:50 | XMS_ITS | Encounter Summary ---
Author Organization [email or web address] Address 75 [facility] 7t [place] [address] Care Team Providers Care Ticket Scheduler Name Role Phone Andriy Scott MD Primary Care Prov ider Encounter Details Date Type Department Care Team ([facility] Contact Info) Description 04/06/2024 Orders Only [facility] CHC MED & PEDS [address] [place], [place] [phone] Andriy Scott MD 505 [place] [address] Social History Tobacco Use Types Packs/Day Years [...] Info) Description 10/27/2025 11:15 AM EST Telemedicine [facility] CHC MED & PEDS [address] [place], [place] [phone] Andriy Scott MD 505 [place] [address] documented as of this encounter Goals Goal [...] documented as of this encounter Care Teams Ticket Scheduler Relationship Specialty Start Date End Date Andriy Scott MD 505 [place] [address] PCP - General Internal Medicine 04/05/20 documented as of this encounter
--- OUTSIDE RECORDS SUMMARY | 2025-10-25 08:51 | XMS_ITS | Encounter Summary ---
Author Organization [employer] Address 75 [facility] 7t [place] [address] Care Team Providers Care Enterprise Systems Architect Name Role Phone Andriy Scott MD Primary Care Prov ider Encounter Details Date Type Department Care Team ([facility] Contact Info) Description 09/06/2025 Orders Only [facility] 230 [place], [place] [phone] ProviderKaren MD Social History Tobacco Use Types [...] Upcoming Encounters Date Type Department Care Team ([facility] st Contact Info) Description 10/27/2025 11:15 AM EST Telemedicine [facility] CHC MED & PEDS 505 [place], [place] [phone] WinklerAndriy Gonzalez MD 505 [place], [place] [phone] documented as of this encounter Goals Goal [...] Chest Radiographic Steph ging us Historical Provider MD CHAVEZ XR PROCEDURES Final R esult documented in this encounter Visit Diagnoses Not on filedocumented in this encounter Additional Health Concerns Assessment Noted Time PHQ-9 Depression Total Score: 3 08/19/20 25 9:50 AM EDT documented as of this encounter Care Teams Enterprise Systems Architect Relationship Specialty Start Date End Date Andriy Scott MD [address] [place] [address] PCP - General Internal Medicine 04/05/20 documented as of this encounter
--- OUTSIDE RECORDS SUMMARY | 2025-10-25 08:51 | XMS_ITS | Encounter Summary ---
Author Organization [employer] Address 75 [facility] 7[place] [address] Care Team Providers Care Manager Science Name Role Phone Andriy Scott MD Primary Care Prov ider Encounter Details Date Type Department Care Team (Late Contact Info) Description 12/18/2022 Orders Only [facility] MEDICINE 230 [place], [place] [phone] Andriy Scott MD 505 [place], [place] [phone] Non-seasonal allergic rhinitis due to fungal spores [...] 10/27/2025 11:15 AM EST Telemedicine [facility] CHC MED & PEDS 505 [place], [place] [phone] Andriy Scott MD 505 [place], [place] [phone] documented as of this encounter Visit Diagnoses Diagnosis Non-seasonal allergic rhinitis due to fungal spores- Primary documented in this encounter Care Teams Manager Science Relationship Specialty Start Date End Date Andriy Scott MD [address] [place] [address] PCP - General Internal Medicine 04/05/20 documented as of this encounter
--- OUTSIDE RECORDS SUMMARY | 2025-10-25 08:51 | XMS_ITS | Encounter Summary ---
Author Organization [employer] Address 75 [facility] 7t [place] [address] Care Team Providers Care Art Museum Docent Name Role Phone Andriy Scott MD Primary Care Prov ider Encounter Details Date Type Department Care Team ([facility] Contact Info) Description 08/05/2025 Orders Only [facility] 230 [place], [place] [phone] ProviderKaren MD Social History Tobacco Use Types [...] 10/27/2025 11:15 AM EST Telemedicine [facility] CHC MED & PEDS 505 [place] [address] Andriy Scott MD 505 [place] [address] documented as of this encounter Goals Goal [...] documented as of this encounter Care Teams Art Museum Docent Relationship Specialty Start Date End Date Andriy Scott MD 505 [place] [address] PCP - General Internal Medicine 04/05/20 documented as of this encounter
--- OUTSIDE RECORDS SUMMARY | 2025-10-25 08:51 | XMS_ITS | Encounter Summary ---
Author Organization [employer] Address 75 [facility] 7t [place] [address] Care Team Providers Care Claim Examiner Name Role Phone Andriy Soctt MD Primary Care Prov ider Reason for Visit * Reason Comments Med Refill Encounter Details Date Type Department Care Team ([facility] Contact Info) Description 02/10/2024 Refill [facility] CHC MED & PEDS 505 [place], [place] [phone] Andriy Scott MD 505 [place] [address] Mixed hyperlipidemia Social History Tobacco Use Types [...] Info) Description 10/27/2025 11:15 AM EST Telemedicine [facility] CHC MED & PEDS 505 [place] [address] Andriy Scott MD 505 [place] [address] documented as of this encounter Goals Goal Patient Goal Type Associated Problems Recent Progress Patient-Stated? Author Blood Pressure < 140/90 Blood Pressure 180/81(2024 11:04 AM EST) No iM Alcaraz PharmD Reduce adverse events General No [...] documented as of this encounter Care Teams Claim Examiner Relationship Specialty Start Date End Date Andriy Scott MD 505 [place] [address] PCP - General Internal Medicine 04/05/20 documented as of this encounter
--- OUTSIDE RECORDS SUMMARY | 2025-10-25 08:51 | XMS_ITS | Encounter Summary ---
Author Organization [employer] Address 75 [facility] 7t [place] [address] Care Team Providers Care Press Operator Carbon Blocks Name Role Phone Andriy Scott MD Primary Care Prov ider Encounter Details Date Type Department Care Team ([facility] Contact Info) Description 07/19/2025 Orders Only [facility] 230 [place], [place] [phone] ProviderKaren MD Social History Tobacco Use Types [...] Info) Description 10/27/2025 11:15 AM EST Telemedicine [facility] CHC MED & PEDS 505 [place] [address] Andriy Scott MD 505 [place] [address] documented as of this encounter Goals Goal [...] documented as of this encounter Care Teams Press Operator Carbon Blocks Relationship Specialty Start Date End Date Andriy Scott MD 505 [place] [address] PCP - General Internal Medicine 04/05/20 documented as of this encounter
--- OUTSIDE RECORDS SUMMARY | 2025-10-25 08:51 | XMS_ITS | Encounter Summary ---
Author Organization [employer] Address 75 [facility] 7t [place] [address] Care Team Providers Care Machine Gun Mechanic Name Role Phone Andriy Scott MD Primary Care Prov ider Encounter Details Date Type Department Care Team ([facility] st Contact Info) Description 09/10/2025 Orders Only [facility] CHC MED & PEDS [address] [place], [place] [phone] ProviderKaren MD Social History Tobacco Use Types [...] Upcoming Encounters Date Type Department Care Team ([facility] st Contact Info) Description 10/27/2025 11:15 AM EST Telemedicine [facility] CHC MED & PEDS 505 [place], [place] [phone] WinklerAndriy Gonzalez MD 505 [place], [place] [phone] documented as of this encounter Goals Goal [...] documented as of this encounter Care Teams Machine Gun Mechanic Relationship Specialty Start Date End Date WinklerAndriy Hebert MD [address] [place] [address] PCP - General Internal Medicine 04/05/20 documented as of this encounter
--- OUTSIDE RECORDS SUMMARY | 2025-10-25 08:51 | XMS_ITS | Encounter Summary ---
Author Organization [employer] Address 75 [facility] 7t [place] [address] Care Team Providers Care Table Games Supervisor Name Role Phone Andriy Scott MD Primary Care Prov ider Encounter Details Date Type Department Care Team ([facility] Contact Info) Description 08/04/2025 Orders Only [facility] 230 [place], [place] [phone] ProviderKaren MD Social History Tobacco Use Types [...] Info) Description 10/27/2025 11:15 AM EST Telemedicine [facility] CHC MED & PEDS 505 [place] [address] WinklerAndriy Gonzalez MD 505 [place], [place] [phone] documented as of this encounter Goals Goal [...] Laterality Modality Head, Neck Computed Tomogra phy us Historical Provider MD CHAVEZ CT PROCEDURES Final R esult * XR Chest 1 View (08/04/2025 1:19 PM EDT) Anatomical Region Laterality Modality Chest Radiographic Steph ging us Historical Provider MD CHAVEZ XR PROCEDURES Final R esult * CT Abdomen Pelvis w/ Contrast (08/04/2025 12:46 PM EDT) Anatomical Region Laterality Modality Body, Pelvis, Abdomen Computed T omography Historical Provider MD CHAVEZ CT PROCEDURES Final R esult documented in this encounter Visit Diagnoses Not on filedocumented in this encounter Additional Health Concerns Assessment Noted Time PHQ-9 Depression Total Score: 0 02/22/20 23 1:22 PM EDT documented as of this encounter Care Teams Table Games Supervisor Relationship Specialty Start Date End Date Andriy Scott MD [address] [place] [address] PCP - General Internal Medicine 04/05/20 documented as of this encounter
--- OUTSIDE RECORDS SUMMARY | 2025-10-25 08:51 | XMS_ITS | Encounter Summary ---
Author Organization [employer] Address 75 [facility] 7t [place] [address] Care Team Providers Care Supervisor Inventory Merchandising Name Role Phone Andriy Scott MD Primary Care Prov ider Reason for Visit * Reason Comments Med Refill Encounter Details Date Type Department Care Team ([facility] Contact Info) Description 10/08/2025 Refill [facility] CHC MED & PEDS 505 [place] [address] Andriy Scott MD 505 [place] [address] Essential (primary) hypertension Social History Tobacco Use Types Packs/Day [...] Info) Description 10/27/2025 11:15 AM EST Telemedicine [facility] MED & PEDS 505 [place] [address] Andriy Scott MD 505 [place] [address] documented as of this encounter Goals Goal [...] as of this encounter Visit Diagnoses Diagnosis Essential (primary) hypertension Unspecified essential hypertension documented in this encounter Additional Health Concerns Assessment Noted Time PHQ-9 Depression Total Score: 3 08/19/20 25 9:50 AM EDT documented as of this encounter Care Teams Supervisor Inventory Merchandising Relationship Specialty Start Date End Date WinklerAndriy Gonzalez MD [address] [place] [address] PCP - General Internal Medicine 04/05/20 documented as of this encounter
--- OUTSIDE RECORDS SUMMARY | 2025-10-25 08:51 | XMS_ITS | Encounter Summary ---
Author Organization [facility] Address [address] [facility] [address] [place] [address] Encounters * CPT with Medical instED at [facility] on 2025-08-06 { reasonForRequest : abdominal pain , patientReports : Sharp focal or diffuse abdominal pain ; Bloating, jaundice new onset with pain; Constipation , denie s :[ Vomiting blood/coffee ground material , Nausea and vomiting greater than 2 hours with abdominal pain , Tearing pain that radiates to back , Food Impaction& quot;, Vague abdominal pain greater than 24 hours , Diarrhea no blood in stool", Nausea with or without vomiting , Inability to tolerate foods, fluids or daily medications ], chiefComplaints : Abdominal Pain , pmh : Hypertension, Coronary Artery Disease, COPD/Asthma, Diabetes Mellitus Type 2, Chronic Kidney Disease, Peripheral Artery Disease, Irritable Bowel Syndrome (IBS) , allergies : Penicillins, Amlodipine, Lisinopril, Naproxen , otherAllergies :null, painAssessment : , visitOutcome : , additionalComments : 79 y.o female complains of Abdominal Pain\nPatient [facility] referral \nPatient called their triage line this afternoo n\nRecently went to ER 9/10 acute ascites and urinary infection according to [facility]\nPatient complaining of bloating\nc/o left sided abdominal pain, denies any nausea or vomiting\nhx of chronic constipation\nendorses decreased appetite\nrefusing to go back to the hospital and requesting insted visit \n triage limited due to information VNA had and patient being a poor historian\npatient has chronic kidney issues and Plavix s on her list but [facility] states she is not taking it at this time. \n\n\n\nI provided information on the mobile health provider response time and advised the patient and/or caregiver to monitor reported signs and symptoms. I discussed the warning signs of when to seek emergency care.\n } Encountered patient conscious, alert and ambulatory with family present. Patient reports, for approximately one week, she has been experiencing left-sided upper and lower quadrant pain that does not radiate to her flank or lower back. Patient states she was seen at a local emergency room on 08/04/25and had abdominal CT scan performed. [facility] able to view CT scan results via patient???s chart. Patient reports that while in the [...] Extremities are free of trauma and edema. [facility] contacted: GI cocktail (Viscus lidocaine & Mag-AL Plus) x1 administered. 20mg of IV famotidine administered; medications administered after medication ???rights?? were reconciled with patient. [facility] states they will send a prescription for further treatment to a pharmacy of patient???s choice. Patient was encouraged to monitor herself for worsening symptoms as well as fevers and constipation and was urged to seek further medical attention including 911 if said symptoms were too develop. Patient verbalizes understanding of the plan and states she is comfortable remaining home today. IV discontinued prior to end of appointment. IV_(FLUIDS_AND/OR_MEDICATION), MEDICATION_IM Written by Medical instED on 2025-08-06
--- OUTSIDE RECORDS SUMMARY | 2025-10-25 08:51 | XMS_ITS | Encounter Summary ---
Author Organization [employer] Address 75 [facility] 7t [place] [address] Care Team Providers Care Metal Caster Name Role Phone Andriy Scott MD Primary Care Prov ider Encounter Details Date Type Department Care Team ([facility] Contact Info) Description 06/08/2025 Orders Only [facility] CHC MED & PEDS [address] [place], [place] [phone] Andriy Scott MD 505 [place] [address] Social History Tobacco Use Types Packs/Day Years [...] Info) Description 10/27/2025 11:15 AM EST Telemedicine [facility] CHC MED & PEDS 505 [place], [place] [phone] Andriy Scott MD 505 [place] [address] documented as of this encounter Goals Goal [...] documented as of this encounter Care Teams Metal Caster Relationship Specialty Start Date End Date Andriy Scott MD 505 [place] [address] PCP - General Internal Medicine 04/05/20 documented as of this encounter
--- OUTSIDE RECORDS SUMMARY | 2025-10-25 08:51 | XMS_ITS | Encounter Summary ---
Author Organization [employer] Address 75 [facility] 7t [place] [address] Care Team Providers Care Agile Developer Name Role Phone Andriy Scott MD Primary Care Prov ider Reason for Visit * Reason Onset Date Comments Medication Question 08/31/2025 Encounter Details Date Type Department Care Team ([facility] st Contact Info) Description 08/31/2025 Telephone [facility] MEDICINE [address] [place] [address] Andriy Scott MD 505 [place] [address] Medication Question Social History Tobacco Use Types [...] José Cruz - 08/31/2025 4:25 PM EDT SAMIRA saab [facility] wanting to do a med reconciliation . documented in this encounter Plan of Treatment Upcoming Encounters Date Type Department Care Team (Late st Contact Info) Description 10/27/2025 11:15 AM EST Telemedicine [facility] CHC MED & PEDS 505 [place] [address] Andriy Scott MD [address] [place] [address] documented as of this encounter Goals Goal [...] documented as of this encounter Care Teams Agile Developer Relationship Specialty Start Date End Date Andriy Scott MD [address] [place] [address] PCP - General Internal Medicine 04/05/20 documented as of this encounter
--- OUTSIDE RECORDS SUMMARY | 2025-10-25 08:51 | XMS_ITS | Encounter Summary ---
Author Organization [employer] Address 75 [facility] 7t [place] [address] Care Team Providers Care Grinding Machine Tender Name Role Phone Andriy Scott MD Primary Care Prov ider Reason for Visit * Reason Comments Med Refill Encounter Details Date Type Department Care Team ([facility] Contact Info) Description 10/07/[address] [facility] CHC MED & PEDS 505 [place] [address] Andriy Scott MD 505 [place] [address] Essential (primary) hypertension Social History Tobacco Use [...] Info) Description 10/27/2025 11:15 AM EST Telemedicine [facility] MED & PEDS 505 [place] [address] Andriy Scott MD [address] [place] [address] documented as of this encounter Goals Goal [...] documented as of this encounter Care Teams Grinding Machine Tender Relationship Specialty Start Date End Date WinklerAndriy Gonzalez MD [address] [place] [address] PCP - General Internal Medicine 04/05/20 documented as of this encounter
--- OUTSIDE RECORDS SUMMARY | 2025-10-25 08:51 | XMS_ITS | Encounter Summary ---
Author Organization [employer] Address 75 [facility] 7t [place] [address] Care Team Providers Care Quilter Fixer Name Role Phone Andriy Scott MD Primary Care Prov ider Encounter Details Date Type Department Care Team ([facility] st Contact Info) Description 11/07/2023 Abstract [facility]ULT D[facility]AL [address] [place] [address] Elder Akers DDS 230 [place] [address] Social History Tobacco Use Types Packs/Day Years [...] Info) Description 10/27/2025 11:15 AM EST Telemedicine [facility] MED & PEDS 505 [place] [address] Andriy Scott MD 505 [place] [address] documented as of this encounter Visit Diagnoses Not on filedocumented in this encounter Additional Health Concerns Assessment Noted Time PHQ-9 Depression Total Score: 0 02/22/20 23 1:22 PM EDT documented as of this encounter Care Teams Quilter Fixer Relationship Specialty Start Date End Date Andriy Scott MD 505 [place] [address] PCP - General Internal Medicine 04/05/20 documented as of this encounter
--- OUTSIDE RECORDS SUMMARY | 2025-10-25 08:52 | XMS_ITS | Clinical Summary ---
Author Organization [address] [place] [address] Address [address] [place] [address] Phone Care Team Providers Care Barrel Assembler Name Role Phone Andriy Scott Primary Care [...] EC tablet 81 mg. 08/03/20 15 Active fluticasone HFA (FLOVENT HFA) 110 mcg/actuation inhaler Inhale 1 puff by mouth 2 (two) times a day. 08/03/20 15 Active ferrous gluconate (FERGON) 324 mg (37.5 mg iron) tablet Take 1 tablet (324 mg total) by mouth 1 (one) time each day. 11/24/20 24 Active nitroglycerin (NITROSTAT) 0.4 mg SL tabletIndication s:Coronary artery disease involving rincon coronary artery of rincon heart without angina pectoris Place 1 tablet (0.4 mg total) under the tongue every 5 (five) minutes if needed for chest pain. 26 tablet 3 12/15/19 25 Active cetirizine (ZyrTEC) 10 mg chewable [...] 60 each 5 06/29/20 25 026 Active spironolactone (ALDACTONE) 50 mg tablet Take 1 tablet (50 mg total) by mouth 1 (one) time each day. 90 each 07/16/20 25 Active valsartan (DIOVAN) 160 mg tablet Take 1 tablet (160 mg total) by mouth 2 (two) times a day. Active lactulose (CHRONULAC) solution Take 30 mL (20 g total) by mouth 2 (two) times a day. 1800 mL 2 08/17/20 25 Active evolocumab (Repatha SureClick) 140 mg/mL pen injector injectionIndicat ions:Dyslipidemi a Inject 1 mL (140 mg total) under the skin every 14 (fourteen) days. 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) Resistant hypertension 07/23/2025 FLEMING (dyspnea on exertion) 07/23/2025 Subclavian artery stenosis, left ([facility] V24) 0 06/15/2025 History of coronary artery stent placement 06/15 Overview (06/15/2025): Multiple Class 3 severe obesity due t o excess calories with serious comorbidity and body mass index (BMI) of 40.0 to 44.9 in adult ([facility] V24, [facility] V28) 12/15/2024 Assessment & Plan (12/15/2024 4:02 PM EST): Patient is obese. Approaches towards weight loss are discussed, including burning more calories than one takes in by portion control and regular exercise with an emphasis on duration rather than intensity. Peripheral edema 09/01/2024 Fatigue 09/01/2024 Dizziness 09/01/2024 Overview (09/01/2024): Dizziness and lightheadedness Carotid stenosis, bilateral 09/01/2024 Chest pain 11/26/2023 Dyslipidemia 11/26/2023 Stable angina ([facility] V24) 11/26/2023 PAD (peripheral artery disease) ([facility] V24) Overview (09/01/2024): Last Assessment & Plan: Follows with Dr. Bhatia Assessment & Plan (12/15/2024 4:02 PM EST): The patient offers no symptoms; no new concerning findings on exam today. We will continue to monitor this on serial imaging. Continue with efforts towards proper blood pressure and lipid control. Coronary artery disease invo lving rincon heart without angina pectoris 12/15/2020 Overview (09/01/2024): [...] Encounters Date Type Department Care Team Description 09/20/2025 3:00 PM EDT Office Visit Vascular Surgery - [place] [address] [place] [address] Gilda Hernandez PA Mesenteric artery stenosis (CMS/HCC V24) (Primary Dx); Subclavian artery stenosis, left (CMS/HCC V24) 09/17/2025 Telephone [facility] - [facility] [address] [facility] [address] [place] [phone] Mary Jett NP 09/08/2025 9:52 PM EDT - 09/09/2025 1:57 AM EDT Emergency [facility] Emergency [address] [place] [address] Rene Navas MD Secondary hypertension (Primary Dx) Discharge Disposition: Home or Self Care 09/05/2025 10:07 PM EDT - 09/06/2025 4:12 AM EDT Emergency [facility] Emergency [address] [place] [address] Resistant hypertension (Primary Dx) Discharge Disposition: Home or Self Care 08/31/2025 10:30 AM EDT - 08/31/2025 11:30 AM EDT Surgery [facility] Cardiac Automatic Lathe Setter [address] [place] [address] Patrick Bhatia MD Angiography iliac bilateral [76305 (CPT )] 08/31/2025 8:53 AM EDT - 08/31/2025 5:05 PM EDT Hospital Encounter [facility] Lathe [facility]ter [address] [place] [address] Patrick Bhatia MD Stenosis of common iliac artery ([facility]/HCC V24); Mesenteric artery stenosis (CMS/HCC V24) Discharge Disposition: Home or Self Care 08/20/2025 11:30 AM EDT Consult Vascular Surgery - [place] [address] [facility] [address] [place] [address] Patrick Bhatia MD Mesenteric artery stenosis (CMS/HCC V24) (Primary Dx); LLQ abdominal pain; Constipation, unspecified constipation type; 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) 08/18/2025 Telephone Gastroenterology - [place] [address] [facility] [address] [place] [phone] Shannon Ceron PA 08/17/2025 9:50 AM EDT Office Visit Gastroenterology [facility] [address] [facility] [address] [place] [phone] Shannon Ceron PA LLQ abdominal pain (Primary Dx); Constipation, unspecified constipation type; Stenosis of common iliac artery ([facility] V24) 08/09/2025 10:30 AM EDT Office Visit Orthopedic Surgery [facility] [address] [facility] [address] [place] [phone] Phan Avalos DPM Type 2 diabetes mellitus with stage 3 chronic kidney disease, without long-term current use of insulin, unspecified whether stage 3a or 3b CKD (CMS/[facility] V24, [facility] V28) (Primary Dx); Arthritis of both feet; Hammertoes of both feet; Pain in toes of both feet; Dermatophytosis, nail 08/04/2025 4:09 AM EDT - 08/04/2025 2:15 PM EDT Emergency [facility] Emergency [address] [place] [phone] Lester Montejo MD Wire, Jessica, MD Acute cystitis without hematuria (Primary Dx); Abnormal CT of the abdomen Discharge Disposition: Home or Self Care 07/30/2025 1:00 PM EDT Ancillary Procedure [facility] - [address] [place] [phone] FLEMING (dyspnea on exertion); Resistant hypertension; Coronary artery disease involving rincon coronary artery of rincon heart without angina pectoris; History of coronary artery stent placement from Last 3 Months Surgical History Surgery [...] Sign Reading Time Taken Comments Blood Pressure 175/72 09/20/2025 3:06 PM EDT Pulse 55 09/20/2025 3:06 PM EDT Temperature 36.5 C (97.7 F) 09/08/2025 10:04 PM EDT Respiratory Rate 22 09/08/2025 10:29 PM EDT Oxygen Saturation 98% 09/09/2025 12:43 AM EDT Inhaled Oxygen Concentration - - Weight 68 kg (150 lb) 09/20/2025 3:06 PM EDT Height 149.9 cm (4' 11 ) 09/20/2025 3:06 PM EDT Body Mass Index 30.3 09/20/2025 3:06 PM EDT Plan of Treatment Upcoming Encounters Date Type Department Care Team (Late st Contact Info) Description 10/26/2025 2:40 PM EST Office Visit Gastroenterology - [address] [facility] [address] [facility] [address] [place] [address] Shannon Ceron PA [address] [facility] [address] [place] [address] 2025 1:45 PM EST Office Visit Orthopedic Surgery - [place] [address] [facility] [address] [place] [phone] Phan Avalos, DANISHA [address] [facility] [address] [place] [address] 12/21/2025 10:45 AM EST Ancillary Procedure [facility] - [facility] [address] [place] [phone] 12/22/2025 4:00 PM EST Office Visit Vascular Surgery - [place] [address] [place] [phone] Kamla Guadarrama PA [address] [place] [address] 12/24/2025 9:10 AM EST Office Visit [facility] - [facility] [address] [facility] 102 [place] [phone] Mary Jett NP [address] [place] [address] [address] [place] [address] Health Maintenance Due Date Last Done Comments [...] exertion) Resistant hypertension Coronary artery disease involving rincon coronary artery of rincon heart without angina pectoris History of coronary artery stent placement from Last 3 Months Results * ECG-Annotated (09/09/2025) Only the most recent of3 resultswithin the time period is included. us Provider Onbase MD ECG ORDERABLES Final Result * (ABNORMAL) Troponin I high sensitivity (09/08/2025 11:35 PM EDT) Only the most recent of5 resultswithin the time period is included. [facility] High Sensitivity Troponin I 55(H) <=54 ng/L LAB CHEMISTRY METHOD 09/09/2025 12:11 AM EDT [facility] Blood Venous blood specimen / Unknown Venipuncture / Unknown 09/08/2025 11:35 PM EDT 09/08/2025 11:40 PM EDT Narrative [facility] - 09/09/2025 12:11 AM EDT High levels of biotin in samples may falsely decrease hsTroponin values. Use caution when interpreting hsTroponin results in patients taking biotin who exhibit renal impairment (eGFR <60) or in patients taking more than 20 mg/day of biotin. Antionette Pride MD LAB BLOOD ORDERABLES Final Res ult [facility] [address] [place] [address], * ECG 12 lead (09/08/2025 11:23 PM EDT) Only the most recent of4 resultswithin the time period is included. Ventricular Rate ECG 53 BPM GEMUSE Atrial Rate 53 BPM GEMUSE P-R Interval 182 ms GEMUSE QRS Duration 90 ms GEMUSE Q-T Interval 436 ms GEMUSE QTc 409 ms GEMUSE P Wave [place] 8 degrees GEMUSE R [place] -9 degrees GEMUSE T [place] 18 degrees GEMUSE ECG Interpretation Sinus bradycardia Moderate voltage criteria for LVH, may be normal variant ( R in aVL , [place] product ) When compared with ECG of [...] Signed Date: 09/09/2025 07:04 ET Workstation ID: [id number] Transcribed By: Self Edit Transcribed Date: 09/09/2025 [...] Signed Date: 09/09/2025 07:04 ET Workstation ID: [id number] Transcribed By: Self Edit Transcribed Date: 09/09/2025 07:01 ET us Antionette Pride MD IMG XR PROCEDURES Final Result * (ABNORMAL) CBC auto differential (09/08/2025 10:47 PM EDT) Only the most recent of4 resultswithin the time period is included. WBC 9.1 4.8 - 10.8 K/mcL LAB HEMETOLOGY METHOD 09/08/2025 11:18 PM EDT [facility] RBC 4.20 3.80 - 4.80 M/mcL LAB HEMETOLOGY METHOD 09/08/2025 11:18 PM EDT [facility] Hemoglobin 11.7 11.5 - 16.0 g/dL LAB HEMETOLOGY METHOD 09/08/2025 11:18 PM EDT [facility] Hematocrit 37.1 35.0 - 47.0 % LAB HEMETOLOGY METHOD 09/08/2025 11:18 PM [facility] MCV 88.8 79.0 - 98.0 FL LAB HEMETOLOGY METHOD 09/08[facility]25 [facility] MCH 28.0 27.0 - 32.0 pcg LAB HEMETOLOGY METHOD 09/08/2025 11:18 PM [facility] MCHC 31.5(L) 32.0 - 37.0 g/dL LAB HEMETOLOGY METHOD 09/08/2025 11:18 PM [facility] RDW 13.7 11.0 - 15.0 % LAB HEMETOLOGY METHOD 09/08/2025 11:18 PM [facility] Platelets 295 130 - 400 K/mcL LAB HEMETOLOGY METHOD 09/08/2025 11:18 PM [facility] MPV 9.2 7.0 - 11.0 FL LAB HEMETOLOGY METHOD 09/08/2025 11:18 PM [facility] NRBC 0.0 <1.0 % LAB HEMETOLOGY METHOD 09/08/2025 11:18 PM [facility] NRBC Absolute 0.00 <0.10 K/mcL LAB HEMETOLOGY METHOD 09/08/2025 11:18 PM [facility] Neutrophils Relative 70.0 % LAB HEMETOLOGY METHOD 09/08/2025 11:18 PM [facility] Lymphocytes Relative 19.5 % LAB HEMETOLOGY METHOD 09/08/2025 11:18 PM [facility] Monocytes Relative 5.7 % LAB HEMETOLOGY METHOD 09/08/2025 11:18 PM EDT [facility] Eosinophils Relative 4.1 % LAB HEMETOLOGY METHOD 09/08/2025 11:18 PM EDT [facility] Basophils Relative 0.2 % LAB HEMETOLOGY METHOD 09/08/2025 11:18 PM EDT [facility] Immature Granulocytes Relative 0.5 % LAB HEMETOLOGY METHOD 09/08/2025 11:18 PM EDT [facility] Neutrophils Absolute 6.37 1.50 - 7.00 K/mcL LAB HEMETOLOGY METHOD 09/08/2025 11:18 PM EDT [facility] Lymphocytes Absolute 1.78 1.00 - 5.00 K/mcL LAB HEMETOLOGY METHOD 09/08/2025 11:18 PM EDT [facility] Monocytes Absolute 0.52 0.20 - 1.00 K/mcL LAB HEMETOLOGY METHOD 09/08/2025 11:18 PM EDT [facility] Eosinophils Absolute 0.37 0.00 - 0.50 K/mcL LAB HEMETOLOGY METHOD 09/08/2025 11:18 PM EDT [facility] Basophils Absolute 0.02 0.00 - 0.20 K/mcL LAB HEMETOLOGY METHOD 09/08/2025 11:18 PM EDT [facility] Immature Granulocytes Absolute 0.05(H) 0.00 - 0.03 K/mcL LAB HEMETOLOGY METHOD 09/08/2025 11:18 PM EDT [facility] Blood Venous blood specimen / Unknown Venipuncture / Unknown 09/08/2025 10:47 PM EDT 09/08/2025 11:14 PM EDT us Antionette Pride MD LAB BLOOD ORDERABLES Final Res ult [facility] [address] [place] [address], [place] [phone] * APTT (09/08/2025 10:47 PM EDT) Only the most recent of2 resultswithin the time period is included. aPTT 29.8 24.1 - 39.3 sec LAB COAGULATION METHOD 09/08/2025 11:27 PM EDT [facility] Blood Venous blood specimen / Unknown Venipuncture / Unknown 09/08/2025 10:47 PM EDT 09/08/2025 11:14 PM EDT us Antionette Pride MD LAB BLOOD ORDERABLES Final Res ult [facility] [address] [place] [address], [place] [phone] * Protime-INR (09/08/2025 10:47 PM EDT) Only the most recent of3 resultswithin the time period is included. [facility] Protime 11.6 10.6 - 13.9 sec LAB COAGULATION METHOD 09/08/2025 11:27 PM EDT [facility] INR 0.9 LAB COAGULATION METHOD 09/08/2025 11:27 PM EDT [facility] Blood Venous blood specimen / Unknown Venipuncture / Unknown 09/08/2025 10:47 PM EDT 09/08/2025 11:14 PM EDT us Antionette Pride MD LAB BLOOD ORDERABLES Final Res ult [facility] [address] [place] [address], [place] [phone] * B-type natriuretic peptide (09/08/2025 10:47 PM EDT) Only the most recent of2 resultswithin the time period is included. Pathologist [facility] BNP 29 <=100 pcg/mL LAB CHEMISTRY METHOD 09/09/2025 12:23 AM EDT [facility] Blood Venous blood specimen / Unknown Venipuncture / Unknown 09/08/2025 10:47 PM EDT 09/08/2025 11:14 PM EDT Antionette Pride MD LAB BLOOD ORDERABLES Final Res ult Performing Organization Address City/[facility]/ZIP Co de Phone Number [facility] [address] [place] [address], [place] [phone] * Magnesium (09/08/2025 10:47 PM EDT) Magnesium 1.9 1.9 - 2.6 mg/dL LAB CHEMISTRY METHOD 09/08/2025 11:38 PM EDT [facility] Blood Venous blood specimen / Unknown Venipuncture / Unknown 09/08/2025 10:47 PM EDT 09/08/2025 11:14 PM EDT Antionette Pride MD LAB BLOOD ORDERABLES Final Res ult Performing Organization Address [facility] de Phone Number [facility] [address] [place] [address], [place] [phone] * Lipase (09/08/2025 10:47 PM EDT) Only the most recent of2 resultswithin the time period is included. Lipase 34 13 - 75 unit/L LAB CHEMISTRY METHOD 09/08/2025 11:38 PM EDT [facility] Blood Venous blood specimen / Unknown Venipuncture / Unknown 09/08/2025 10:47 PM EDT 09/08/2025 11:14 PM EDT Antionette Pried MD LAB BLOOD ORDERABLES Final Res ult [facility] [address] [place] [address], [place] [phone] * (ABNORMAL) Comprehensive metabolic panel (09/08/2025 10:47 PM EDT) Only the most recent of3 resultswithin the time period is included. Sodium 140 133 - 145 mmol/L LAB CHEMISTRY METHOD 09/08/2025 11:38 PM [facility] Potassium 4.9 3.5 - 5.5 mmol/L LAB CHEMISTRY METHOD 09/08/2025 11:38 PM [facility] Chloride 108 96 - 110 mmol/L LAB CHEMISTRY METHOD 09/08/2025 11:38 PM [facility] CO2 27 21 - 32 mmol/L LAB CHEMISTRY METHOD 09/08/2025 11:38 PM [facility] Anion Gap 5 3 - 11 LAB CHEMISTRY METHOD 09/08/2025 11:38 PM [facility] Glucose 107(H) 70 - 100 mg/dL LAB CHEMISTRY METHOD 09/08/2025 11:38 PM [facility] BUN 16 5 - 25 mg/dL LAB CHEMISTRY METHOD 09/08/2025 11:38 PM [facility] Creatinine 0.89 0.50 - 1.10 mg/dL LAB CHEMISTRY METHOD 09/08/2025 11:38 PM [facility] eGFR 66 >=60 mL/min/1. 73m2 LAB CHEMISTRY METHOD 09/08/2025 11:38 PM [facility] Comment:Calculation based on the Chronic Kidney Disease Epidemiology Collaboration (CKD-EPI) equation refit without adjustment for race. BUN/Creatinine Ratio 18.0 LAB CHEMISTRY METHOD 09/08/2025 11:38 PM [facility] Calcium 10.1 8.5 - 10.5 mg/dL LAB CHEMISTRY METHOD 09/08/2025 11:38 PM [facility] AST (SGOT) 24 10 - 42 unit/L LAB CHEMISTRY METHOD 09/08/2025 11:38 PM EDT [facility] ALT (SGPT) 19 10 - 60 unit/L LAB CHEMISTRY METHOD 09/08/2025 11:38 PM EDT [facility] Alkaline Phosphatase 65 42 - 121 unit/L LAB CHEMISTRY METHOD 09/08/2025 11:38 PM EDT [facility] Total Protein 6.8 6.0 - 8.0 g/dL LAB CHEMISTRY METHOD 09/08/2025 11:38 PM EDT [facility] Albumin 3.8 3.2 - 5.0 g/dL LAB CHEMISTRY METHOD 09/08/2025 11:38 PM EDT [facility] Total Bilirubin 0.3 0.0 - 1.4 mg/dL LAB CHEMISTRY METHOD 09/08/2025 11:38 PM EDT [facility] Blood Venous blood specimen / Unknown Venipuncture / Unknown 09/08/2025 10:47 PM EDT 09/08/2025 11:14 PM EDT Antionette Pride MD LAB BLOOD ORDERABLES Final Res ult [facility] [address] [place] [address], * (ABNORMAL) POCT activated clotting time,kaolin (08/31/2025 11:24 AM EDT) Activated Clotting Time Kaolin 193(H) 74 - 137 sec 08/31/2025 11:25 AM EDT [facility] Blood Arterial blood specimen / Unknown 08/31/2025 11:24 AM EDT 08/31/2025 11:27 AM EDT us Patrick Bhatia MD LAB POINT OF CARE TE ST DOCKED DEVICE UNSOLICITED RESULTS Final Result [facility] [address] [place] [address], [place] [phone] * ANGIOGRAPHY ILIAC BILAT (08/31/2025 11:09 AM EDT) Anatomical Region Laterality Modality X-Ray Angiograph y Narrative 09/02/2025 7:02 AM EDT Per op note Study Details Per H&P Clinical Background Per H&P Procedure Details Per op note Patrick Bhatia MD CV INVASIVE VASCULAR PROCEDURES Final Result * Basic metabolic panel (08/31/2025 9:33 AM EDT) Sodium 141 133 - 145 mmol/L LAB CHEMISTRY METHOD 08/31/2025 10:30 AM [facility] Potassium 4.4 3.5 - 5.5 mmol/L LAB CHEMISTRY METHOD 08/31/2025 10:30 AM [facility] Chloride 108 96 - 110 mmol/L LAB CHEMISTRY METHOD 08/31/2025 10:30 AM [facility] CO2 28 21 - 32 mmol/L LAB CHEMISTRY METHOD 08/31/2025 10:30 AM [facility] Anion Gap 5 3 - 11 LAB CHEMISTRY METHOD 08/31/2025 10:30 AM [facility] Glucose 90 70 - 100 mg/dL LAB CHEMISTRY METHOD 08/31/2025 10:30 AM [facility] BUN 14 5 - 25 mg/dL LAB CHEMISTRY METHOD 08/31/2025 10:30 AM [facility] Creatinine 0.83 0.50 - 1.10 mg/dL LAB CHEMISTRY METHOD 08/31/2025 10:30 AM [facility] eGFR 71 >=60 mL/min/1. 73m2 LAB CHEMISTRY METHOD 08/31/2025 10:30 AM [facility] Comment:Calculation based on the Chronic Kidney Disease Epidemiology Collaboration (CKD-EPI) equation refit without adjustment for race. BUN/Creatinine Ratio 16.9 LAB CHEMISTRY METHOD 08/31/2025 10:30 AM EDT [facility] Calcium 9.6 8.5 - 10.5 mg/dL LAB CHEMISTRY METHOD 08/31/2025 10:30 AM EDT [facility] Blood Venous blood specimen / Unknown Venipuncture / Unknown 08/31/2025 9:33 AM EDT 08/31/2025 9:39 AM EDT us Patrick Bhatia MD LAB BLOOD ORDERABLES Final Resu lt Performing Organization Address [facility]/ZIP Co de Phone Number [facility] [address] [place] [address], [place] [phone] * Lactate (08/04/2025 8:57 AM EDT) Lactate 1.1 0.4 - 2.0 mmol/L LAB CHEMISTRY METHOD 08/04/2025 9:46 AM EDT [facility] Blood Venous blood specimen / Unknown Venipuncture / Unknown 08/04/2025 8:57 AM EDT 08/04/2025 9:13 AM EDT Mary Mc MD LAB BLOOD ORDERABLES Final Resul t Performing Organization Address [facility]/ZIP Co de Phone Number [facility] [address] [place] [address], [place] [phone] * CT Abdomen Pelvis w Contrast (08/04/2025 [...] Signed Date: 08/04/2025 08:38 ET Workstation ID: [id number] Transcribed By: Self Edit Transcribed Date: 08/04/2025 08:32 ET Narrative 08/04/2025 8:38 AM EDT INDICATION: Upper abdominal pain TECHNIQUE: CT scan of the abdomen and pelvis obtained with a total of 90 cc of Isovue-370 administered intravenously without incident. Oral contrast was not administered. Scanner: CAPPTURE LightSpeed 64 slice VCT Dose reduction technique: [...] without incident. Oralcontrast was not administered. Scanner: Mayi Zhaopinpeed 64 slice VCT Dose reduction technique: ASIR [...] Signed Date: 08/04/2025 08:38 ET Workstation ID: [id number] Transcribed By: Self Edit Transcribed Date: 08/04/2025 [...] Signed Date: 08/04/2025 08:32 ET Workstation ID: [id number] Transcribed By: Self Edit Transcribed Date: 08/04/2025 08:30 ET Narrative 08/04/2025 8:32 AM EDT INDICATION: Weakness Technique: Axial images were obtained from the skull base to the vertex without contrast enhancement. Coronal and sagittal reformats obtained. Scanner: CAPPTURE LightSpeed 64 slice VCT Dose reduction technique: [...] enhancement. Coronal and sagittal reformats obtained. Scanner: CAPPTURE LightSpeed 64 slice VCT Dose reduction technique: [...] Signed Date: 08/04/2025 08:32 ET Workstation ID: [id number] Transcribed By: Self Edit Transcribed Date: 08/04/2025 08:30 ET Lester Montejo MD IMG CT PROCEDURES Final Resu lt * XR Chest 1 View (08/04/2025 6:41 AM EDT) Anatomical Region Laterality Modality Body Radiographic Steph ging 08/04/2025 8:38 AM EDT Impressions 08/04/2025 8:39 AM EDT No evidence of active pulmonary disease. -------- FINAL REPORT -------- Dictated By: Wyatt Atkinson Dictated Date: 08/04/2025 08:38 ET Assigned Physician: Wyatt Atkinson Reviewed and Electronically Signed By: Wyatt Atkinson Signed Date: 08/04/2025 08:39 ET Workstation ID: [id number] Transcribed By: Self Edit Transcribed Date: 08/04/2025 [...] Signed Date: 08/04/2025 08:39 ET Workstation ID: [id number] Transcribed By: Self Edit Transcribed Date: 08/04/2025 08:38 ET us eLster Montejo MD IMG XR PROCEDURES Final Resu lt * (ABNORMAL) Urinalysis with reflex microscopic (08/04/2025 4:45 AM EDT) Specific [place] Urine 1.006 1.003 - 1.030 LAB URINALYSIS - AUTOMATED METHOD 08/04/2025 5:22 AM [facility] pH, Urine 7.5 5.0 - 8.0 pH LAB URINALYSIS - AUTOMATED METHOD 08/04/2025 5:22 AM [facility] Leukocytes, Urine Moderate(A) Negative LAB URINALYSIS - AUTOMATED METHOD 08/04/2025 5:22 AM [facility] Nitrite, Urine Negative Negative LAB URINALYSIS - AUTOMATED METHOD 08/04/2025 5:22 AM [facility] Protein, Urine Negative <=Trace mg/dL LAB URINALYSIS - AUTOMATED METHOD 08/04/2025 5:22 AM [facility] [facility] Glucose, Urine Negative Negative mg/dL LAB URINALYSIS - AUTOMATED METHOD 08/04/2025 5:22 AM [facility] Ketones, Urine Negative Negative mg/dL LAB URINALYSIS - AUTOMATED METHOD 08/04/2025 5:22 AM [facility] Urobilinogen , Urine 0.2 0.2 - 1.0 mg/dL LAB URINALYSIS - AUTOMATED METHOD 08/04/2025 5:22 AM [facility] Bilirubin, Urine Negative Negative LAB URINALYSIS - AUTOMATED METHOD 08/04/2025 5:22 AM [facility] Blood, Urine Negative Negative LAB URINALYSIS - AUTOMATED METHOD 08/04/2025 5:22 AM [facility] RBC, Urine 4.6(H) 0 - 4 /HPF LAB URINALYSIS - AUTOMATED METHOD 08/04/2025 5:22 AM EDT [facility] WBC, Urine 10(H) 0 - 4 /HPF LAB URINALYSIS - AUTOMATED METHOD 08/04/2025 5:22 AM EDT [facility] Squamous Epithelial, Urine 7 0 - 60 /LPF LAB URINALYSIS - AUTOMATED METHOD 08/04/2025 5:22 AM EDT [facility] Bacteria, Urine Negative Negative /HPF LAB URINALYSIS - AUTOMATED METHOD 08/04/2025 5:22 AM EDT [facility] Hyaline Casts, Urine 0.4 0 - 3 /LPF LAB URINALYSIS - AUTOMATED METHOD 08/04/2025 5:22 AM EDT [facility] Urine Urine specimen obtained by clean catch procedure / Unknown Non-blood Collection / Unknown 08/04/2025 4:45 AM EDT 08/04/2025 4:55 AM EDT us Lester Montejo MD LAB URINE ORDERABLES Final R esult [facility] [address] [place] [address], [place] [phone] * NM LEXISCAN STRESS TEST W/ MYOCARDIAL [...] MD CV STRESS PROCEDURES Final Resu lt from Last 3 Months Insurance [employer] Member Subscriber Plan / Payer (Ef fective 1899-Present) Name:Amee Hartman Relation to Subscriber:Self Name:Amee Hartman Payer ID:[id number] Group ID:[id number] Type:Not on file Address: [address] [place] [address] [facility] Member Subscriber Plan / Payer (Ef fective 1899-Present) Name:Amee Hartman Relation to Subscriber:Self Name:Amee Hartman Payer ID:[id number] Group ID:[id number] Type:Not on file Address: [address] [place] [address] [facility] Member Subscriber Plan / Payer (Ef fective 2016-Present) Name:Amee Hartman Relation to Subscriber:Self Name:Amee Hartman Payer ID:[id number] Group ID:[id number] Type:Not on file Address: [address] [place] [address] Advance Directives * Full Code - Default [...] currently active code status orders. Care Teams Barrel Assembler Relationship Specialty Start Date End Date Andriy Scott [address] [place] [address] PCP - General Internal Medicine 12/15/20
--- OUTSIDE RECORDS SUMMARY | 2025-10-25 08:52 | XMS_ITS | Encounter Summary ---
Author Organization Formerly [facility], [facility]–1983 Address [address] [place] [address] Encounters * [facility] Pt states at 8am today, she took her BP medications, at 11AM, the [facility] nurse told her her BP was 184/98. [...] told me to follow up with PCP. { reasonForRequest : , patientReports : , denies&quot ;:[], chiefComplaints : High Blood Pressure, Weakness , pmh : Hypertension, Coronary Artery Disease, COPD/Asthma, Diabetes Mellitus Type 2, Chronic Kidney Disease, Peripheral Artery Disease, Irritable Bowel Syndrome (IBS) , allergies : Penicillins, Amlodipine, Lisinopril, Naproxen , otherAllergies : , painAssessm ent : , visitOutcome : , additionalComments : HPI reviewed } Sent to a call for a pt [...] fever, or loc. Pt was evaluated at [facility] ED on 09/08-09/09 for hypertension. Pt's [...] nurse states they will contact pt's PCP. [facility] consulted and sends prescription to pt's pharmacy for Nifedipine 30mg PO. Pt is advised to take 30mg tablet with 60mg to take at the same time. Pt advised to follow up with PCP this week. Pt states she has had difficulty getting appt, so [facility] will send note to pt's personal care attendant to help schedule appt. Red flags discussed. Pt has no further questions. IV_(FLUIDS_AND/OR_MEDICATION), MEDICATION_IM, ORAL_MEDICATION, EKG, WOUND_CARE, ORTHOSTATIC_VITAL_SIGNS Written by Medical [facility] on 2025-09-29
--- OUTSIDE RECORDS SUMMARY | 2025-10-25 08:52 | XMS_ITS | Continuity of Care Document ---
Author Organization [employer] Address [address] [place] [address] Care Team Providers Care Cmo & President Name Role Phone HIM CCA OTHER Unavailable OTHER JOSEPHEZEQUIEL GONZALEZ Primary Care Provider [phone] Assessment Encounter Date Assessment Date Assessment LastModified by Organization Details LastModified Time 09/08/2025 09/08/2025 I have reviewed and agree with the assessment and plan as documented by the cash accounting clerk. I provided real-time medical direction for this [...] ED transfer. paysola Not available 09/08/2025 21:28:36 Plan of Treatment Reminders Order Date Submit [...] Details Recorded Time Obstructive sleep apnea syndrome 05776408 Active 2014 Russ Chandler MD [address], [place], [address], [employer] 17:35:09 Primary gonarthrosi s, bilateral 973690599 Active 2018 Russ Chandler MD [address] [facility] [address], [place], [address], [place] [facility] 17:34:47 Peripheral vascular disease 596832954 Active 2020 Russ Chandler MD [address] [facility], [place], [address], [place] [facility] 17:34:52 Essential hypertensio n 49081559 Active 2020 Russ Chandler MD [address] [facility], [place], [address], [place] [facility] 17:28:59 Peripheral arterial disease 074399998 Active 2020 Russ Chandler MD [address] [facility], [place], [address], [place] [facility] 17:35:03 Type 2 diabetes mellitus 82672838 Active 2023 Russ Chandler MD [address] [facility], [place], [address], [place] [facility] 17:28:46 Stenosis of left subclavian artery 4885531177813 4101 Active 2024 Russ Chandler MD [address] [facility], [place], [address], [place] [facility] 17:28:54 Problem Notes None recorded. Medical Equipment None Reported. Allergies Allergen ID Allergen Name Allergen Category Reaction Reaction Severity Criticality Documentation Date Start Date Code Code System Note Provider Name and Address Organization Details Recorded Time 25824 lisinopri l medicatio n Not available Not available Not available 01/20/2025 30315 RxNorm Not Available [facility] - [facility] 13:06:14 61388 naproxen medicatio n Not available Not available Not available 08/06/2025 7258 RxNorm Not Available [facility] - [facility] 16:26:05 69039 penicilli n G Not available rash Not available low 09/28/20252020 7980 RxNorm Rhina Simons MD [address] [facility], [place], [address], [facility] 5 18:11:25 01519 Iodinated contrast media (substanc e) medicatio n Not available Not available Not available 09/28/2025 51900 2004 SNOMED Not Available [facility] 5 19:21:47 04098 red (food color) food,medi cation Not available Not available Not available 09/28/2025 Rhina Simons MD [address] [facility] [facility], [place], [address], [employer] 5 18:12:00 1971 Product containin g penicilli n (product) medicatio n Not available Not available Not available 01/21/2023 41305 8001 SNOMED Not Available [facility] - [facility] 4 03:34:36 1972 amlodipin e medicatio n Not available Not available Not available 01/21/2023 37963 RxNorm Not Available [facility] - [facility] 5 13:06:14 1973 Adacel medicatio n Not available Not available Not available 01/21/2023 80894 8 RxNorm Rhina Simons MD [address] [facility] [facility], [place], [address], [facility] 3 12:45:04 Medications Name Sig Start Date [...] Available No t Available Vitals Date Recorded Body temperature Oxygen saturation Respiratory rate Heart rate Systolic And Diastolic Provider Name and Address Organization Details Last Updated DateTime 98.7 [degF] 99 % 16 /min 82 /min 222/100 mm[Hg] Not Available [employer] - production 21:19:36 Social History None recorded. Functional Status None recorded. Mental Status None recorded. Family History Nothing Reported. Medical History No medical history recorded. Gynecological HistoryNo gynecological history recorded. Obstetrics History GPAL:G 0 P 0 0 0 0 Past Encounters Encounter ID Performer Location Encounter Start Date Encounter Closed Date Diagnosis/Indication Diagnosis SNOMED-CT Code Diagnosis ICD10 Code Diagnosis IMO Codes Diagnosis Note [id number] Jessica Moore MD [facility] [address] [place] [address] 09/08/2025 21:19:32 09/09/2025 12:56:09 Chest pain 71696257 R07.89 54905 Health Concerns Section Related Observation LastModified by Organization Detai ls LastModified Time None Recorded Concern Status LastModified by Organization Details LastModified Time None Recorded Payers Encounter Date Sequence Insurance Name Policy Number Policy Johnston Covered Member ID Johnston Member ID Guarantor Name 09/08/2025 1 [facility] - DOS ON OR AFTER 2023 - DUAL ELIGIBLE - [employer] AND ONE [employer] (MEDICARE REPLACEMENT/ADV ANTAGE - HMO) Amee Joseph [id number] Amee Joseph Notes Date Note Type Note Provider Name and Address Organization Details Recorded Time 09/08/2025 text/html [facility] Nurse Triage Notes (Deanna Raines): Reason For Request: Pt reporting BP 8pm-199/99, 97, 64>8:20pm reading 221/96, 59>it has been 1 year since elevated BPAllergies to meds: Penicillin>Amlodipi nePMH: Hypertension, Diabetic, arthritis Patient Reports: Chest pain, increased fatigue Denies: History of Heart Attack, in the setting of active chest pain Active Chest pain, radiates to neck jaw and or arm Diaphoretic/Sweatin g Describes as c rushing Sudden onset of nausea/Vomiting and shortness of breath. Shortness of Breath Unable to speak in full sentences without distress Palpitations, feeling dizzy CHF history, increased swelling and edema Weakness/tachycardi a Chief Complaints: High Blood Pressure, Chest Pain PMH: Hypertension, Coronary Artery Disease, COPD/Asthma, Diabetes Mellitus Type 2, Chronic Kidney Disease, Peripheral Artery Disease, Irritable Bowel Syndrome (IBS) PMH Reviewed at 09/08/2025 - :56 Allergies Reviewed at 09/08/2025 - :56 Comments: 79 y.o female complains of High [...] signs of when to seek emergency care. ................... ................... ................... ................... ................... ................... ................... ........ Barrel Scraper Note From Endy Jerome: Dispatched to the [...] was assessed. Manual PB reading of 222/100. [facility] consulted. ED advised. Pt agreeable. 911 called for the Pt. I remained on scene with her until EMS arrival. Pt less than 0.5 miles from ambulance HQ, with quick arrival time no interventions were able to be conducted. ([place] [facility] with National ALS intercept). Pt transported to [facility] per her request. ALL times are approx. ................... ................... ................... ................... ................... ................... ................... ........ [facility] Consulted: Jessica Moore ................... ................... ................... ................... ................... ................... ................... ........ Disposition: Fulfilled Jessica Moore MD [address] [facility], [place], [address], [employer] 09/09/2025 08:33:10 OBGyn Episode No OBEpisode recorded.
--- OUTSIDE RECORDS SUMMARY | 2025-10-25 08:52 | XMS_ITS | Continuity of Care Document ---
Author Name [facility], [facility] Address [address] [place] [id number] Organization Unknown Address [address] [place] [address] Medications No known medications Problems No known problems
--- OUTSIDE RECORDS SUMMARY | 2025-10-25 08:52 | XMS_ITS | Encounter Summary ---
Author Organization [employer] Address [address] [place] [address] Care Team Providers Care Green Chainer Name Role Phone Andriy Scott MD Primary Care Prov ider Reason for Visit * Reason Onset Date Comments Call Back Request 09/22/2025 Encounter Details Date Type Department Care Team ([facility] Contact Info) Description 09/22/[address] [facility] P[facility]S [address] [place] [address] Andriy Scott MD [address] [place] [address] Call Back Request Social History Tobacco Use [...] * Telephone Encounter - Eduar Hunt - 09/22/2025 11:31 AM EDT Tc from pt reporting she got a missed call from [facility] and is now returning call. Contact pt at [phone] documented in this encounter Plan of Treatment Upcoming Encounters Date Type Department Care Team ([facility] st Contact Info) Description 10/27/2025 11:15 AM EST Telemedicine [facility] MED & PEDS [address] [place] [address] Andriy Scott MD [address] [place] [address] documented as of this encounter Goals Goal [...] documented as of this encounter Care Teams Green Chainer Relationship Specialty Start Date End Date WinklerAndriy Gonzalez MD [address] [place] [address] PCP - General Internal Medicine 04/05/20 documented as of this encounter
--- OUTSIDE RECORDS SUMMARY | 2025-10-25 08:52 | XMS_ITS | Continuity of Care Document ---
Author Name [facility], Medical Address [address] [place] [address] Organization Unknown Address [address] [place] [address] Medications No known medications Problems No known problems
--- OUTSIDE RECORDS SUMMARY | 2025-10-25 08:52 | XMS_ITS | Encounter Summary ---
Author Organization [facility] Address [address] [place] [address] Encounters * CPT with Medical [facility] at [facility] on 2025-09-09 { reasonForRequest : Pt reporting BP 8pm-199/99, 97, 64>8:20pm reading 221/96, 59>it has been 1 year since elevated BP\n\nAllergies to meds: Penicillin> Amlodipine\nPMH: Hypertension, Diabetic, arthritis , patientReports : Chest pain , increased fatigue , denies :[ History of Heart Attack, in the setting of activ e chest pain , Active Chest pain, radiates to neck jaw and or arm , Diaphoretic/ Sweating , Describes as crushing , Sudden onset of nausea/Vomiting and shortness of breath. , Shortness of Breath , Unable to speak in full sentences without distress , Palpitations, feeling dizzy , CHF history, increased swelling and edema , Weakness/tachycardia ], chiefComplaints : High Blood Pressure, Chest Pain , pmh : Hypertension, Coronary Artery Disease, COPD/Asthma, Diabetes Mellitus Type 2, Chronic Kidney Disease, Peripheral Artery Disease, Irritable Bowel Syndrome (IBS) , allergies : Penicillins, Amlodipine, Lisinopril, Naproxen , otherAllergies :null, painAssessment : , visitOutcome : ,&qu ot;additionalComments : 79 y.o female complains of High Blood Pressure\npatients symptomsstarted on Saturday and was in the Emergency [...] patient refused. requesting insted visit for assessment, \nI provid ed information on the mobile health provider response time and advised the patient and/or caregiverto monitor reported signs and symptoms. I discussed the warning signs of when to seek emergency care. } Dispatched to the call address for the [...] with National ALS intercept). Pt transported to [facility] per her request. ALL times are approx. IV_(FLUIDS_AND/OR_MEDICATION), MEDICATION_IM, ORAL_MEDICATION, EKG, POC_FLU_STREP, COVID_TEST, ORTHOSTATIC_VITAL_SIGNS Written by Medical [facility] on 2025-09-09
--- OUTSIDE RECORDS SUMMARY | 2025-10-25 08:52 | XMS_ITS | Continuity of Care Document ---
Author Name [facility], Medical Address [address] [place] [address] Organization Unknown Address [address] [place] [address] Medications No known medications Problems No known problems
--- OUTSIDE RECORDS SUMMARY | 2025-10-25 08:52 | XMS_ITS | Clinical Summary ---
Author Organization [facility] Address [address] [place] [phone] Phone Care Team Providers Care Oilseed Meat Presser Name Role Phone Peterson Andriy Primary Care Provider Allergies Active Allergy Reactions Criticality Noted Date Comments Amlodipine 09/07/2015 Diphth-Acell Pertussis-Tetanus 06/19 Lisinopril 05/17/2015 Penicillin G Rash Low 03/08/2021 Medications Aspirin Low Dose 81 MG EC tablet TOME ADIN TABLETA TODOS LOS D 1 Active albuterol HFA (PROVENTIL HFA;VENTOLIN HFA) 108 (90 Base) MCG/ACT inhaler Inhale 2 puffs 5 Active Repatha SureClick 140 MG/ML solution auto-injector INJECT 1 ML SUBCUTANEOUSLY EVERY 2 WEEKS IN THE ABDOMEN/THIGH/OUTE R AREA OF UPPER ARM (ROTATE SITES) 1 Active Multiple Vitamin (Daily-Leonarda Multivitamin) tablet TOME ADIN TABLETA TODOS LOS D 1 Active spironolactone (ALDACTONE) 25 MG tablet 1 Active cetirizine (ZyrTEC) 10 MG tablet 1 Active FREESTYLE LITE test strip 1 Active nitroglycerin (NITROSTAT) 0.[address] 0.4 mg under the tongue every 5 (five) minutes if needed for chest pain Active calcium carbonate (TUMS) 500 MG chewable tablet Chew 1 tablet 1 (one) time each day Active ferrous gluconate (FERGON) 324 (38 Fe) MG tablet Take 324 mg by mouth 1 (one) time each day with breakfast Active carvedilol (COREG) 3.125 MG tablet Take 3.125 mg by mouth in the morning and 3.125 mg in the evening. 5 Active cyanocobalamin (VITAMIN B-12) 1000 MCG tablet Take 1,000 mcg by mouth every morning Active Cholecalcifero l (Vitamin D3) 25 MCG tablet Take 1 tablet by mouth every morning Active rosuvastatin (CRESTOR) 40 MG tablet Take 20 mg by mouth 1 (one) time each day 3 Active sucralfate (CARAFATE) 1 g tablet Take 1 g by mouth in the morning and 1 g at noon and 1 g in the evening. 5 Active NIFEdipine XL (PROCARDIA XL) 30 MG 24 hr tablet Take 30 mg by mouth in the morning. 5 Active ferrous gluconate (FERGON) 324 (38 Fe) MG tablet Take 324 mg by mouth 1 (one) time each day with breakfast Active Active Problems Problem Noted Date Diagnosed [...] Coronary atherosclerosis 05/18/2015 Overview (02/06/2021): Followed by [facility] Cardiology Dr.Robert Ward Abdominal pain 05/17/2015 [...] Date Type Department Care Team Description 09/20/2025 Telephone [facility] [address] [phone] Tyra Escobedo ARNP 09/14/2025 4:00 PM EDT Office Visit [facility] [address] [phone] Tyra Escobedo ARNP Hypertension (Primary Dx); Chronic kidney disease, stage 2 (mild); Anemia in chronic kidney disease from Last [...] Sign Reading Time Taken Comments Blood Pressure 180/80 09/14/2025 4:33 PM EDT Pulse 60 09/14/2025 4:08 PM EDT Temperature - - Respiratory Rate - - Oxygen Saturation 97% 09/14/2025 4:08 PM EDT Inhaled Oxygen Concentration - - Weight 68.4 kg (150 lb 12.8 oz) 09/14/2025 4:08 PM EDT Height 139.7 cm (4' 7 ) 03/13/2022 3:28 PM EDT Body Mass Index 35.05 03/13/2022 3:28 PM EDT Plan of Treatment Upcoming Encounters Date Type Department Care Team (Late st Contact Info) Description 10/26/2025 4:00 PM EST Office Visit [facility]. [address] [phone] Tyra Escobedo ARNP [address] [phone] 07/05/2026 1:00 PM EDT Office Visit [facility] [address] [phone] Tyra Escobedo ARNP [address] [phone] Health Maintenance Due Date Last Done Comments Pneumococcal Vaccine: 50+ Years (1 of 2 - PCV) 1964 Diabetes: Ophthalmology Exam 12/25/2020 Diabetes: Pedal Pulse Checked 12/25/2020 Diabetes: Sensory Foot Exam 12/25/2020 Diabetes: Visual Foot Exam 12/25/2020 Influenza Vaccine (#1) 2025 Diabetes: Hemoglobin A1C 10/01/2025 082 025, 12/29/2024, 03/30/2024, Additional history exists Hepatitis B Vaccine Aged Out No longe r eligible based on patient's age to complete this topic Procedures Procedure Name Priority Date/Time Associated Diagnosis Comments CORTISOL, FREE, SERUM Routine 09/16/2025 11:28 AM EDT Hypertension Chronic kidney disease, stage 2 (mild) RENIN ACTIVITY Routine 09/16/2025 11:28 AM EDT Hypertension Chronic kidney disease, stage 2 (mild) ALDOSTERONE Routine 09/16/2025 10:28 AM EDT Hypertension Chronic kidney disease, stage 2 (mild) METANEPHRINES,FRACTI ONATED, PLASMA FREE Routine 09/16/2025 10:28 AM EDT Hypertension Chronic kidney disease, stage 2 (mild) HEMOGLOBIN A1C Routine 06/19/2023 9:50 AM EDT Chronic kidney disease, stage 2 (mild) Hypertension Type 2 diabetes mellitus with diabetic chronic kidney disease (HCC) from Last 3 Months or Most Recently Relevant to Health Maintenance Results * Renin Activity, Plasma (09/16/2025 11:28 AM EDT) Pathologist [facility] Renin Plasma 3.14 0.25 - 5.82 ng/mL/h See order comments Comment: This test was developed and its analytical performance characteristics have been determined by [employer] [place], [place]. It has not been cleared or approved by the U.S. Food and Drug Administration. This assay has been validated pursuant to the CLIA regulations and is used for clinical purposes. THIS TEST WAS PERFORMED AT: [employer] [address] [place] [address] KIKA FRIAS MD,PHD Blood Venous blood / Unknown 09/16/2025 11:28 AM EDT 09/16/2025 11:28 AM EDT Tyra Escobedo [facility] LAB BLOOD ORDERABLES Final Result [place] See order comments [place] [address] * Cortisol, Free, LC/MS, Serum (09/16/2025 11:28 AM EDT) Pathologist [facility] Cortisol Free, Ser 0.56 mcg/dL See order comments Comment: Adult Reference Ranges for Cortisol, MS, Free: 8:00 - 10:00 AM 0.07-0.93 mcg/dL 4:00 - 6:00 PM 0.04-0.45 mcg/dL 10:00 - 11:00 PM 0.04-0.35 mcg/dL This test was developed and its analytical performance characteristics have been determined by [employer]. It has not been cleared or approved by the FDA. This assay has been validated pursuant to the CLIA regulations and is used for clinical purposes. THIS TEST WAS PERFORMED AT: [employer] [address] [place] [address] CAREY MARROQUIN MD,PHD,NILESH Blood Venous blood / Unknown 09/16/2025 11:28 AM EDT 09/16/2025 11:28 AM EDT us Tyra Gregg [facility] LAB BLOOD ORDERABLES Final Result [facility] See order comments [place] [address] * Metanephrines,Fractionated, Plasma Free (09/16/2025 10:28 AM EDT) [facility] Signature Metanephrine, Free Plasma 33 <=57 pg/mL See order comments Comment: This test was developed and its analytical performance characteristics have been determined by [facility] [place], [place]. It has not been cleared or approved by the U.S. Food and Drug Administration. This assay has been validated pursuant to the CLIA regulations and is used for clinical purposes. Normetanephrine Free 129 <=148 pg/mL See order comments Comment: This test was developed and its analytical performance characteristics have been determined by [employer] [place], [place]. It has not been cleared or approved by the U.S. Food and Drug Administration. This assay has been validated pursuant to the CLIA regulations and is used for clinical purposes. Plasma Free Metanephrine 162 <=205 pg/mL See order comments Comment: For additional information, please refer to http://education.[employer]/faq/MetFractFree (This link is being provided for informational/educatio informational/educational purposes only.) Elevations >4-fold upper reference range: strongly suggestive of a pheochromocytoma(1). Elevations >1- 4-fold upper reference range: significant but not diagnostic, may be due to medications or stress. Suggest running 24 hr urine fractionated metanephrines and/or serum Chromagranin A for confirmation. Reference: (1)Donaldo Solis et al, Plasma Chromogranin A or Urine Fractionated Metanephrines Follow-Up Testing Improves the Diagnostic Accuracy of Plasma Fractionated Metanephrines for Pheochromocytoma. The Journal of Clinical Endocrinology # Metabolism 93(1), 91-95, 2008. This test was developed and its analytical performance characteristics have been determined by [employer] [place], [place]. It has not been cleared or approved by the U.S. Food and Drug Administration. This assay has been validated pursuant to the CLIA regulations and is used for clinical purposes. THIS TEST WAS PERFORMED AT: [employer] [address] KIKA FRIAS MD,PHD Blood Venous blood / Unknown 09/16/2025 10:28 AM EDT 09/16/2025 10:28 AM EDT Tyra Escobedo [facility] LAB BLOOD ORDERABLES Final Result [place] See order comments [place] [address] * Aldosterone (09/16/2025 10:28 AM EDT) Aldosterone 6 see note ng/dL See order comments Comment: Unable to flag abnormal result(s), please refer to reference range(s) below: Adult Reference Ranges for Aldosterone, LC/MS/MS: Upright 8:00 - 10:00 am < or = 28 ng/dL Upright 4:00 - 6:00 pm < or = 21 ng/dL Supine 8:00 - 10:00 am 3 - 16 ng/dL This test was developed and its analytical performance characteristics have been determined by [employer] [place], [place]. It has not been cleared or approved by the U.S. Food and Drug Administration. This assay has been validated pursuant to the CLIA regulations and is used for clinical purposes. THIS TEST WAS PERFORMED AT: [employer] [place] [id number], [place] KIKA FRIAS MD,PHD Blood Venous blood / Unknown 09/16/2025 10:28 AM EDT 09/16/2025 11:28 AM EDT us Tyra Escobedo [facility] LAB BLOOD ORDERABLES Final Result [facility] See order comments [place] [address] * (ABNORMAL) Hemoglobin A1c (06/19/2023 9:50 AM EDT) Hemoglobin A1C 5.8(H) (4.0-5.6) % [facility] Comment: MONITORING: In known diabetic patients, hemoglobin A1c targets should be discussed with health care provider. DIAGNOSTIC USE: The [place] Diabetes Association (ADA) and the World Health [...] Supplement 1 Testing performed or reported by [facility], a Service of [facility], [address] [place] [address] Alessandro Lopez MD, Mechanic Driver [facility]# [id number] Blood specimen (specimen) Venous blood / Unknown 06/19/2023 9:50 AM EDT 06/19/2023 9:52 AM EDT us Zohaib De La Rosa MD LAB BLOOD ORDERABLES Final Re sult [facility] from Last 3 Months or Most Recently Relevant to Health Maintenance Insurance [facility] ([id number]) [facility] ([id number]) [employer] [phone] Care Teams Oilseed Meat Presser Relationship Specialty Start Date End Date Andriy Winkler [address] [place] [address] [place] [address] PCP - General Internal Medicine 03/08/21
[2025-10-25 14:34] LABS: Hematocrit 39.1 % (37.0-47.0); Hemoglobin 12.5 g/dl (12.0-16.0); Mean Corpuscular HGB Conc 32.0 g/dl (31.0-35.0); Mean Corpuscular Hemoglobin 28.5 pg (27.0-33.0); Mean Corpuscular Volume 89.1 fL (80.0-98.0); NRBC Abs Auto 0.000 X10*3/uL (0.0-0.012); NRBC Pct Auto 0.0 /100WBC (0.0-0.2); Platelet Count 335 X10*3/uL (160-400); Red Blood Count 4.39 X10*6/uL (4.20-5.50); White Blood Count 6.4 X10*3/uL (4.8-10.8)
[2025-10-25 14:40] LABS: Anion Gap 10 (12-20); Blood Urea Nitrogen 27 mg/dL (9-16); Calcium 9.6 mg/dL (8.4-10.2); Carbon Dioxide 27 mmol/L (22-29); Chloride 111 mmol/L (96-108); Estimated Glomerular Filt Rate > 60; Potassium 4.2 mmol/L (3.3-5.1); Sodium 144 mmol/L (135-145)
[2025-10-25 15:02] LABS: Parathyroid Hormone Intact 95.3 pg/mL (8.7-77.1)
[2025-10-25 15:14] LABS: Microalbum/Creatinine Ratio Ur 67.5 ug/mg cr (<30); Protein/Creatinine Ratio, Ur 0.17 (<0.2); Total Protein Urine Random 13 mg/dL (<12)
== END 2025-10-25 08:30 | disposition home or self-care (01) ==
LOC: HO.CHCLDS 08:29
PROVIDERS: PCP Internal Medicine; Visit Provider Internal Medicine Nephrology
DX: I12.9 Hypertensive chronic kidney disease with stage 1 through stage 4 chronic kidney disease, or unspecified chronic kidney disease (principal); N18.2 Chronic kidney disease, stage 2 (mild); D63.1 Anemia in chronic kidney disease
CPT/HCPCS: 36415; 80051; 82043; 82310; 82565; 82570; 83970; 84156; 84520; 85027